=== PATIENT | female | born 1945 | race Caucasian/White ===

== ENCOUNTER → 2016-03-15 | Outpatient (CLI) | payer OTHER, MEDICARE ==
[2016-03-15 12:10] VITALS: BP 191/84; PULSE 84; RESP 16; TEMP 98.1
--- NOTE | 2016-03-15 12:40 | P.PN ---
Subjective This is follow-up visit for this patient with a history of severe and chronic left upper extremity pain and numbness and tingling, started after a work- related injury, and patient had left rotator cuff surgery, and she continued to have severe left shoulder pain and pins and needles in the left upper extremity , she had pain management interventions done long time ago at different pain clinic and according to the patient , she had no benefit from the injection, and is currently on pain medications 1- Neurontin 100 mg twice a day 2- tramadol 50 MG EVERY 4 HOURS 5 PER DAY 3-Lidoderm patch 5% one patch to apply to the left shoulder Patient denies any side effects of the medication, denies excessive drowsiness or sleepiness, denies suicidal ideation, and reports that the current pain medication is NOT helping To control the pain and improve activity of daily living Physical Examinations : 1-Constitutiona : Cooperative , not in acute distress . 2-HEENT : nech ; supple , no Lymphadenopathy , no Thyromegaly , normal thyroid size . eyes : no ptosis , no icterus, no photophobia . ENT : normal of hearing , normal oropharynx , no Thrush . 3- Respiratory : Chest clear to auscultations Bilaterally , no wheezing , no Rhonchi . 4- Cardiovascular : regular rate and rhythem , S1 , S2 , no S3 , no S4. 5- Gastrointestinal : abdomen soft no tenderness , bowel sounds positive all four quadrents , no organomegally . 6- Genitourinary : Defferred . 7- neurologic : Cranial nerve II to XII intact , no focal neurological deffecit . 8-psychatric : alert , oriented X 3 , appropriate affect , intact judgment and insight . 9-Lymphatic : no Lymphadenopathy . 10- musculoskeltal : motor strength normal Right upper extremities 5/5 , and eats 3-4 for the left upper extremity Normal sensation in the right upper extremity and right shoulder area, Positive allodynia in the left upper extremity starting from the upper part of the shoulder, the entire left upper extremity. Normal skin color bolus upper extremities, Assessment and plan = CRPS type I left upper extremity = which is started after work-related injury , patient could benefit from the Neurontin 100 mg twice a day and it should be increased, as tolerated - diagnoses, prognosis, and treatment options including but not limited to physical therapy, surgical interventions, interventional therapies and medication management including narcotics and adjuvant medication were discussed with the patient and all questions answered to the patient's satisfaction. -medication refile =1-Neurontin milligrams twice a day dispense 60 with 1 refill 2- [id number] MG EVERY 4 HOURS DISPENSE 150 WITH 1 REFILL 3- Lidoderm patch 5% apply 1 patch to the left shoulder area 12 hours on, 12 hours off and she will follow up with the pain clinic in 2 months -procedure= discussed with the patient the option of doing the stellate ganglion block, patient declined, she reported that she had injection in the past without any benefit Objective - Vital Signs Vital signs: Vital Signs Temp 98.1 F 03/15/16 12:02 Pulse 84 03/15/16 12:02 Resp 16 03/15/16 12:02 BP 191/84 03/15/16 12:02 Pulse Ox 96 03/15/16 12:02 Intake & Output 03/14/16 03/15/16 03/15/16 18:59 06:59 18:59 Weight 72.575 kg
== END | disposition home or self-care (01) ==
LOC: PNWHC3 11:28
PROVIDERS: ATTEND Specialist
DX: M25.512 Pain in left shoulder (principal); S49.92XA Unspecified injury of left shoulder and upper arm, initial encounter; Y99.9 Unspecified external cause status; Z79.899 Other long term (current) drug therapy
CPT/HCPCS: 99211

== ENCOUNTER → 2016-04-29 | Outpatient (CLI) | payer MEDICARE ==
[2016-04-29 09:44] LABS: CH 30.9; CHCM 34.9; HCT 44.3 % (34.0-46.0); HGB 15.4 gm/dL (11.4-16.0); MCHC 34.8 g/dL (31.0-37.0); MCV 89.2 fL (80.0-100.0); Mean Platelet Volume 7.4; RBC 4.97 m/uL (3.80-5.40); RDW 13.6 % (11.5-15.5); WBC 8.6 k/uL (3.8-10.6)
[2016-04-29 10:04] LABS: ALT 42 U/L (9-52); AST 23 U/L (14-36); Alkaline Phosphatase 84 U/L (38-126); Anion Gap 15 mmol/L; Blood Urea Nitrogen 16 mg/dL (7-17); Calcium 10.2 mg/dL (8.4-10.2); Carbon Dioxide 28 mmol/L (22-30); Chloride 99 mmol/L (98-107); Cholesterol 151 mg/dL (<200); Creatine Kinase 79 U/L (30-135); Glucose 139 mg/dL (74-99); HDL Cholesterol 27 mg/dL (40-60); Non-African American GFR(MDRD) >60 (>60 ml/min/1.73 sqM); Potassium 4.1 mmol/L (3.5-5.1); Sodium 142 mmol/L (137-145); Triglycerides 314 mg/dL (<150)
[2016-04-29 13:54] LABS: Hemoglobin A1C 8.4 % (4.2-6.1)
== END ==
LOC: LABWHC1 09:15
PROVIDERS: ATTEND Family Medicine
DX: E11.9 Type 2 diabetes mellitus without complications (principal); I10 Essential (primary) hypertension; E78.5 Hyperlipidemia, unspecified
CPT/HCPCS: 36415; 80053; 80061; 82550; 83036; 85027

== ENCOUNTER → 2016-05-10 | Outpatient (CLI) | payer MEDICARE, OTHER ==
[2016-05-10 13:30] VITALS: BP 200/94; PULSE 71; RESP 16; TEMP 97.9
--- NOTE | 2016-05-11 19:00 | P.PN ---
Subjective This is follow-up visit for this patient with a history of severe and chronic left upper extremity pain, the] with CRPS type I Left upper extremities, she refuses interventional pain management, because she had injections done on different pain clinic About any benefit, and currently she is on 1- Neurontin 100 mg twice in the (she reported that she stopped taking it because it is not covered by her insurance 2-term 50 mg every 4 hours when necessary. 3-Lidoderm 5% patch apply to the left shoulder Patient denies any side effects of the medication, denies excessive drowsiness or sleepiness, denies suicidal ideation, and reports that the current pain medication is helping To control the pain and improve activity of daily living Physical Examinations : 1-Constitutiona : Cooperative , not in acute distress . 2-HEENT : nech ; supple , no Lymphadenopathy , no Thyromegaly , normal thyroid size . eyes : no ptosis , no icterus, no photophobia . ENT : normal of hearing , normal oropharynx , no Thrush . 3- Respiratory : Chest clear to auscultations Bilaterally , no wheezing , no Rhonchi . 4- Cardiovascular : regular rate and rhythem , S1 , S2 , no S3 , no S4. 5- Gastrointestinal : abdomen soft no tenderness , bowel sounds positive all four quadrents , no organomegally . 6- Genitourinary : Defferred . 7- neurologic : Cranial nerve II to XII intact , no focal neurological deffecit . 8-psychatric : alert , oriented X 3 , appropriate affect , intact judgment and insight . 9-Lymphatic : no Lymphadenopathy . 10- musculoskeltal : exams of the cervical spine = degrees motor strength 3/5 left upper extremity , positive allodynia left upper extremity Normal color and both upper extremities exams of the Lumber spine = motor strength lower extremities ,thigh and legs .5/5 Assessment and plan = CRPS type I left upper extremity, patient was started on Neurontin 100 mg she is not taking it now She reported that is not covered by her insurance/worker compensation. Refille Ultram 50 mg every 4 hours when necessary dispense 150 with 1 refill Refill Lidoderm patch 5% 12 hours on 12 hours off to be applied to the left shoulder space 30 with one refill Objective - Vital Signs Vital signs: Vital Signs Temp 97.9 F 05/10/16 13:16 Pulse 71 05/10/16 13:16 Resp 16 05/10/16 13:16 BP 200/94 05/10/16 13:16 Pulse Ox 95 05/10/16 13:16 Intake & Output 05/10/16 05/11/16 05/11/16 18:59 06:59 18:59 Weight 72.575 kg
== END ==
LOC: PNWHC3 12:09
PROVIDERS: ATTEND Specialist
DX: G90.512 Complex regional pain syndrome I of left upper limb (principal)
CPT/HCPCS: 99211

== ENCOUNTER → 2016-08-02 | Outpatient (CLI) | payer OTHER, MEDICARE ==
[2016-08-02 12:24] VITALS: BP 188/90; PULSE 88; RESP 18; TEMP 99
--- NOTE | 2016-08-03 22:29 | P.PN ---
Subjective This is follow-up visit for this 71 years old female with a chronic history of severe left shoulder and left upper extremity pain, she was diagnosed with complex regional pain syndrome type I and left upper extremity, she refused to have interventional pain management, she had the injections done at different pain clinic without any benefit she is currently on tramadol 50 mg every 4 hours when necessary and Lidoderm patch 5% to be applied to the left shoulder area, she was started also on Neurontin 100 mg twice a day but it was not approved by her insurance, She denies any side effect of the medication she denies any excessive drowsiness or sleepiness and she reported that the current pain medication helping her to control her pain Objective - Vital Signs Vital signs: Vital Signs Temp 99 F 08/02/16 12:18 Pulse 88 08/02/16 12:18 Resp 18 08/02/16 12:18 BP 188/90 08/02/16 12:18 Pulse Ox 96 08/02/16 12:18 - Exam Physical Examinations : 1-Constitutiona : Cooperative , not in acute distress . 2-HEENT : nech ; supple , no Lymphadenopathy , normal thyroid size . eyes : no ptosis , no icterus, no photophobia . ENT : normal of hearing , normal oropharynx , no Thrush . 3- Respiratory : Chest clear to auscultations Bilaterally , no wheezing , no Rhonchi . 4- Cardiovascular : regular rate and rhythem , S1 , S2 , no S3 , no S4. 5- Gastrointestinal : abdomen soft no tenderness , bowel sounds positive all four quadrents , no organomegally . 6- Genitourinary : Defferred . 7- neurologic : Cranial nerve II to XII intact , no focal neurological deffecit . 8-psychatric : alert , oriented X 3 , appropriate affect , intact judgment and insight . 9-Lymphatic : no Lymphadenopathy . 10- musculoskeltal : cervical spine = decreased motor strength in the left upper extremity 3/5 Positive anadenia and hyperalgesia left upper extremity , distal to the elbow Normal color in the upper extremity bilaterally Lumber spine = normal moter stegnth lower extremities ,thigh and legs .5/5 Assessment and Plan Plan: Assessment and plan= complex regional pain syndrome type I left upper extremity Patient currently stable on Lidoderm patch 5%, and Ultram 50 mg every 4 hours when necessary dispense 150 with 2 refills It will be medical necessity to start patient on Neurontin 100 mg twice a day and it should be increased in the future as tolerated She will follow with the pain clinic in 3 months Time with Patient: Less than 30
== END ==
LOC: PNWHC3 12:07
PROVIDERS: ATTEND Specialist
DX: G90.512 Complex regional pain syndrome I of left upper limb (principal)
CPT/HCPCS: 99211

== ENCOUNTER → 2016-10-25 | Outpatient (CLI) | payer MEDICARE, OTHER ==
[2016-10-25 11:47] VITALS: BP 155/80; PULSE 80; RESP 16
--- NOTE | 2016-10-25 12:04 | P.PN ---
Progress Note - Text This is a 71-year-old female with left shoulder pain status post shoulder surgery a few years ago. The patient was diagnosed with CRPS but failed to respond to multiple procedures previously including stellate ganglion blocks. The patient did not use any Neurontin or Lyrica because of insurance issues. Right now the patient uses tramadol 3 times a day and Lidoderm patches. She gets skin rash from the Lidoderm patch from time to time which is not constant problem as she states. For now we'll continue with the same treatment. We will see her 3 months from now for reevaluation. He is alert oriented 3 in no apparent distress she does not show any signs of oversedation,she denies any suicidal ideation.
== END ==
LOC: PNWHC3 11:22
PROVIDERS: ATTEND Anesthesiology
DX: G90.512 Complex regional pain syndrome I of left upper limb (principal)
CPT/HCPCS: 99211

== ENCOUNTER → 2017-01-17 | Outpatient (CLI) | payer OTHER ==
[2017-01-17 11:46] VITALS: BP 187/91; PULSE 86; RESP 18
--- NOTE | 2017-01-17 12:06 | P.PN ---
Progress Note - Text Progress Note Date: 01/17/17 Patient returns for followup for chronic left shoulder pain with radiation to arms with some numbness/tingling. Patient has not had any interventions and she continues on tramadol medications for pain with good relief. Patient denies adverse drug effects from medications. Today, pt denies new-onset weakness, bowel/bladder incontinence, or any other signs or symptoms of cauda equina syndrome. There are no signs of acute intoxication, and no indications of medication diversion or overuse. In addition to above, 13-point review of systems is also negative for chest pain , shortness of breath, changes in vision, changes in hearing, new onset weakness , abdominal pain, diarrhea, extreme fatigue, malaise, fever, skin changes, homicidal or suicidal ideation, or bowel or bladder incontinence. 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 CRPS type I LUE 2. chronic pain syndrome Plan: 1. Explanation: Opioid and psychological risk scores were reviewed. Diagnoses , prognoses, and multiple treatment options including but not limited to physical therapy, interventional therapies, adjuvant medical therapies, narcotic medication therapies, and surgery were discussed with the patient and all questions were answered to the patient's satisfaction. 2. Opioid agreement: Patient has previously signed narcotic agreement, and was orally counseled to not overuse, abuse, divert, or cell medications, and to take them as prescribed by only 1 healthcare provider. The patient was also counseled to store opioid medications in a safe and preferably locked location. Patient was also counseled against driving or operating heavy equipment while using narcotic medications and also to not use alcohol or any illicit or recreational drugs. The patient verbalized understanding that lack of compliance with any of the above and likely result in failure to renew narcotic prescriptions, possible discharge from the clinic, and possible legal ramifications thereafter if indicated. 3. Counseling: The patient was counseled extensively on SMOKING CESSATION, BODY MASS INDEX, EXERCISE. Specifically, the patient was instructed regarding the importance of smoking cessation, weight control, and exercise in the context of both chronic pain and overall health. 4. Procedures: none, patient refuses as procedures have been ineffective for her in the past 5. Consultations: None 6. Investigations: UDS today 7. Medications: tramadol 50 mg #90 with two refills 8. Disposition: f/u as needed. Patient is stable on low-dose opioid and does not want any further interventions performed. The patient is on a safe and stable dose of medication that can be prescribed by a primary care physician and she does not need the specialty care of an interventional pain clinic; she appears reliable and there are no signs of medication misuse/overuse/diversion. If the patient's pain escalates or her needs change in the future, she is more than welcome to return to us if needed. PQRS measures: 1-Patient's medications are documented in the chart. 2-Tobacco use is negative 3-Patient has not had a pneumococcal vaccine. 4-Advanced care planning discussed, patient unable to give. 5-Opioid contract signed with the patient. 6-Pain positive, follow-up visit or procedure scheduled 7-Patient's blood pressure measured and documented, and patient will follow up with the primary care due to hypertension. 8-Patient's weight was measured, and body mass index ABOVE the normal limits, and counseling was done. Patient instructed to follow up with PCP. 9-Patient WAS NOT identified as an unhealthy alcohol user.
== END | disposition home or self-care (01) ==
LOC: PNWHC3 11:29
PROVIDERS: ATTEND Anesthesiology
DX: G90.512 Complex regional pain syndrome I of left upper limb (principal); G89.4 Chronic pain syndrome
CPT/HCPCS: 80307; 80356; 80373; 99211

== ENCOUNTER → 2017-04-11 | Outpatient (CLI) | payer OTHER ==
[2017-04-11 12:15] VITALS: BP 221/91; PULSE 71; RESP 18; TEMP 98.4
--- NOTE | 2017-04-11 12:55 | P.PN ---
Progress Note - Text Progress Note Date: 04/11/17 Patient returns for followup for chronic left shoulder pain with radiation to arms with some numbness/tingling. Patient has not had any interventions and she continues on tramadol medications for pain with good relief. Patient denies adverse drug effects from medications. Patient apparently lost her last tramadol prescription as neither she nor her pharmacy has it and there are no refills demonstrated on [facility] since December. Today, pt denies new-onset weakness, bowel/bladder incontinence, or any other signs or symptoms of cauda equina syndrome. There are no signs of acute intoxication, and no indications of medication diversion or overuse. In addition to above, 13-point review of systems is also negative for chest pain , shortness of breath, changes in vision, changes in hearing, new onset weakness , abdominal pain, diarrhea, extreme fatigue, malaise, fever, skin changes, homicidal or suicidal ideation, or bowel or bladder incontinence. 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 CRPS type I LUE 2. chronic pain syndrome Plan: 1. Explanation: Opioid and psychological risk scores were reviewed. Diagnoses , prognoses, and multiple treatment options including but not limited to physical therapy, interventional therapies, adjuvant medical therapies, narcotic medication therapies, and surgery were discussed with the patient and all questions were answered to the patient's satisfaction. 2. Opioid agreement: Patient has previously signed narcotic agreement, and was orally counseled to not overuse, abuse, divert, or cell medications, and to take them as prescribed by only 1 healthcare provider. The patient was also counseled to store opioid medications in a safe and preferably locked location. Patient was also counseled against driving or operating heavy equipment while using narcotic medications and also to not use alcohol or any illicit or recreational drugs. The patient verbalized understanding that lack of compliance with any of the above and likely result in failure to renew narcotic prescriptions, possible discharge from the clinic, and possible legal ramifications thereafter if indicated. 3. Counseling: The patient was counseled extensively on SMOKING CESSATION, BODY MASS INDEX, EXERCISE. Specifically, the patient was instructed regarding the importance of smoking cessation, weight control, and exercise in the context of both chronic pain and overall health. 4. Procedures: none, patient refuses as procedures have been ineffective for her in the past 5. Consultations: None 6. Investigations: UDS OK from last visit 7. Medications: tramadol 50 mg #90 with two refills 8. Disposition: f/u as needed. Patient is stable on low-dose opioid and does not want any further interventions performed. The patient is on a safe and stable dose of medication that can be prescribed by a primary care physician and she does not need the specialty care of an interventional pain clinic. PQRS measures: 1-Patient's medications are documented in the chart. 2-Tobacco use is negative 3-Patient has not had a pneumococcal vaccine. 4-Advanced care planning discussed, patient unable to give. 5-Opioid contract signed with the patient. 6-Pain positive, follow-up visit or procedure scheduled 7-Patient's blood pressure measured and documented, and patient will follow up with the primary care due to hypertension. 8-Patient's weight was measured, and body mass index ABOVE the normal limits, and counseling was done. Patient instructed to follow up with PCP. 9-Patient WAS NOT identified as an unhealthy alcohol user.
== END | disposition home or self-care (01) ==
LOC: PNWHC3 11:41
PROVIDERS: ATTEND Anesthesiology
DX: G89.4 Chronic pain syndrome (principal); M25.512 Pain in left shoulder; G90.512 Complex regional pain syndrome I of left upper limb; Z79.891 Long term (current) use of opiate analgesic
CPT/HCPCS: 99211

== ENCOUNTER 2017-04-22 15:26 | Emergency (ER) | payer MEDICARE, OTHER ==
[2017-04-22 15:32] VITALS: RESP 18
[2017-04-22] MEDS ORDERED: cloNIDine HCL 0.2 MG TAB PO STA (16:01)
[2017-04-22] MEDS ORDERED: HYDROcodone/APAP 10-325MG 1 EACH TAB PO ONE (16:01)
--- NOTE | 2017-04-22 16:27 | XR ---
EXAMINATION TYPE: XR chest 2V DATE OF EXAM: 04/22/2017 COMPARISON: NONE HISTORY: Pain TECHNIQUE: Frontal and lateral views of the chest are obtained. FINDINGS: There is no heart failure nor confluent pneumonic infiltrate. Thoracic aorta is atheromato us. Heart size is normal. Bony thorax is intact. IMPRESSION: No active cardiopulmonary disease.
--- NOTE | 2017-04-22 16:52 | ED ---
Fall HPI - General Chief Complaint: Fall Stated Complaint: FALL Time Seen by Provider: 04/22/17 15:34 Source: patient, RN notes reviewed, old records reviewed Mode of arrival: EMS - History of Present Illness Initial Comments: Patient is a 72-year-old female presents emergency Department chief complaint of a fall. She reports that she was walking into a store and tripped over a piece of cement in the parking lot. She reports that she fell and landed on her left chest and rib. Patient states that she has a history of severe and chronic left arm pain. She had a rotator cuff repair and has had first and shoulder syndrome since then. She reports that she is very sensitive to touch over the left shoulder and arm. Patient states that she has no elbow pain, denies any bruising to the upper arm. She reports she can make a fist and denies any numbness or tingling to the hand or arm. Patient states that she has had no neck or head injuries. No loss consciousness. She reports that she was able to get up and walk around afterwards. She reports that after she was walking she still continued and some pain on her left ribs. She states it's reproducible to touch. - Related Data Home Medications Medication Instructions Recorded Confirmed Aspirin [Adult Low Dose Aspirin EC] 81 mg PO DAILY 01/19/16 04/22/17 Atorvastatin [Lipitor] 10 mg PO HS 01/19/16 04/22/17 Glimepiride [Amaryl] 2 mg PO DAILY 01/19/16 04/22/17 amLODIPine [Norvasc] 10 mg PO DAILY 01/19/16 04/22/17 metFORMIN HCL [Glucophage] 500 mg PO BID 01/19/16 04/22/17 Benazepril HCl [Lotensin] 20 mg PO DAILY 04/22/17 04/22/17 Hydrochlorothiazide [Hydrodiuril] 25 mg PO DAILY 04/22/17 04/22/17 Lidocaine 5% Patch [Lidoderm 5% 1 patch TOPICAL Q12H 04/22/17 04/22/17 Patch] Previous Rx's Medication Instructions Recorded traMADol HCL [Ultram] 50 mg PO Q8HR PRN #90 tab 04/11/17 Cyclobenzaprine [Flexeril] 10 mg PO TID #12 tab 04/22/17 HYDROcodone/APAP 5-325MG [Schurz 1 tab PO Q6HR PRN #12 tab 04/22/17 5-325] Allergies Allergy/AdvReac Type Severity Reaction Status Date / Time enalaprilat [From Vasotec] Allergy Anaphylaxis Verified 04/22/17 16:22 Review of Systems ROS Statement: Those systems with pertinent positive or pertinent negative responses have been documented in the HPI. ROS Other: All systems not noted in ROS Statement are negative. Past Medical History Past Medical History: Diabetes Mellitus, Hyperlipidemia, Hypertension Additional Past Medical History / Comment(s): HEART MURMUR. History of Any Multi-Drug Resistant Organisms: None Reported Past Surgical History: Appendectomy, Back Surgery, Cholecystectomy, Hysterectomy , Orthopedic Surgery Additional Past Surgical History / Comment(s): "NECK LAMINECTOMY". LEFT BREAST BIOPSY- BENIGN. LEFT SHOULDER. Past Anesthesia/Blood Transfusion Reactions: No Reported Reaction Past Psychological History: Anxiety Smoking Status: Never smoker Past Alcohol Use History: None Reported Past Drug Use History: None Reported - Past Family History Mother Additional Family Medical History / Comment(s): Aneurism Father Family Medical History: Myocardial Infarction ([place]) General Exam - General Exam Comments Initial Comments: This is a 72-year-old female. No distress. Limitations: no limitations General appearance: alert, in no apparent distress Head exam: Present: atraumatic, normocephalic, normal inspection Eye exam: Present: normal appearance, PERRL, EOMI. Absent: scleral icterus, conjunctival injection, periorbital swelling ENT exam: Present: normal exam, mucous membranes moist Neck exam: Present: normal inspection. Absent: tenderness, meningismus, lymphadenopathy Respiratory exam: Present: normal lung sounds bilaterally. Absent: respiratory distress, wheezes, rales, rhonchi, stridor Cardiovascular Exam: Present: regular rate, normal rhythm, normal heart sounds. Absent: systolic murmur, diastolic murmur, rubs, gallop, clicks GI/Abdominal exam: Present: soft, normal bowel sounds. Absent: distended, tenderness, guarding, rebound, rigid Extremities exam: Present: normal inspection, full ROM, normal capillary refill. Absent: tenderness, pedal edema, joint swelling, calf tenderness Back exam: Present: normal inspection Neurological exam: Present: alert, oriented X3, CN II-XII intact Psychiatric exam: Present: normal affect, normal mood Skin exam: Present: warm, dry, intact, normal color. Absent: rash Course Vital Signs 04/22/17 04/22/17 15:28 16:06 Temperature 97.3 F L Pulse Rate 93 Respiratory 18 Rate Blood Pressure 202/93 161/77 O2 Sat by Pulse 97 Oximetry Medical Decision Making - Medical Decision Making 9-year-old feel presenting a chief complaint of left rib pain after a fall. She is tender to palpation over the left breast and paraspinal muscles. No significant bruising noted. She reports the pain is extremely her principal. She states it is not feeling any deeper pain. Patient chest x-ray was reviewed with her and shows no normalities. EKG was reviewed and shows no acute changes. At this time I discussed patient's pain is muscular skeletal patient agrees. I offered to do blood work and patient refused at this time. I offered to do a cardiac workup and she stated that she fell and is only muscle skeletal does not want to have any further testing. I discussed case with her Sayed. I'll discharge patient went to plantar medication is clinically to see muscle skeletal in nature. Patient agrees to treatment plan will comply. Return parameters were discussed. 04/22/17 17:00 EKG shows normal sinus rhythm, nonspecific ST-T wave male who. Ventricular rate of 79 bpm. TN interval 134 ms. QRS ration 82 ms. QT QTC 372/426 most seconds. No evidence of ST elevation or T-wave inversion. - Radiology Data Radiology results: report reviewed Chest x-ray was reviewed and negative for any acute process. Disposition Clinical Impression: Fall Disposition: HOME SELF-CARE Condition: Good Instructions: Rib Contusion (ED) Additional Instructions: Patient has a follow-up with primary care provider. Return to emergency department if any alarming signs or symptoms occur. Prescriptions: Cyclobenzaprine [Flexeril] 10 mg PO TID #12 tab HYDROcodone/APAP 5-325MG [Schurz 5-325] 1 tab PO Q6HR PRN #12 tab PRN Reason: Pain Referrals: Elenita Ireland MD [Primary Care Provider] - 1-2 days Time of Disposition: 17:15
[2017-04-22 17:25] VITALS: PULSE 75; TEMP 98.2
[2017-04-22 17:53] VITALS: BP 180/83
== END 2017-04-22 17:52 | disposition home or self-care (01) ==
LOC: EC 15:26
DX: R07.81 Pleurodynia (principal); G89.29 Other chronic pain; M25.512 Pain in left shoulder; E78.5 Hyperlipidemia, unspecified; I10 Essential (primary) hypertension; E11.9 Type 2 diabetes mellitus without complications; Z79.82 Long term (current) use of aspirin; Z79.84 Long term (current) use of oral hypoglycemic drugs; Z79.899 Other long term (current) drug therapy; Z88.8 Allergy status to other drugs, medicaments and biological substances; Z98.890 Other specified postprocedural states; Z82.49 Family history of ischemic heart disease and other diseases of the circulatory system; W18.09XA Striking against other object with subsequent fall, initial encounter; Y93.01 Activity, walking, marching and hiking; Y92.481 Parking lot as the place of occurrence of the external cause
CPT/HCPCS: 71046; 93005; 99284

== ENCOUNTER → 2018-07-31 | Outpatient (CLI) | payer MEDICARE, OTHER ==
[2018-07-31 08:47] LABS: HCT 42.8 % (34.0-46.0); HGB 14.1 gm/dL (11.4-16.0); MCH 29.5 pg (25.0-35.0); MCHC 32.9 g/dL (31.0-37.0); MCV 89.4 fL (80.0-100.0); Mean Platelet Volume 6.8; Platelet Count 204 k/uL (150-450); RBC 4.79 m/uL (3.80-5.40); RDW 13.5 % (11.5-15.5); WBC 8.7 k/uL (3.8-10.6)
[2018-07-31 08:58] LABS: ALT 54 U/L (9-52); AST 26 U/L (14-36); African American GFR (CKD) >90 (>60 ml/min/1.73 sqM); Albumin 4.5 g/dL (3.5-5.0); Alkaline Phosphatase 115 U/L (38-126); Anion Gap 8 mmol/L; Blood Urea Nitrogen 20 mg/dL (7-17); Calcium 9.9 mg/dL (8.4-10.2); Carbon Dioxide 28 mmol/L (22-30); Chloride 105 mmol/L (98-107); Cholesterol 140 mg/dL (<200); Creatine Kinase 93 U/L (30-135); Glucose 203 mg/dL (74-99); HDL Cholesterol 27 mg/dL (40-60); LDL Cholesterol,Calculated 62 mg/dL (0-99); Magnesium 1.9 mg/dL (1.6-2.3); Potassium 4.6 mmol/L (3.5-5.1); Sodium 141 mmol/L (137-145); Total Bilirubin 0.7 mg/dL (0.2-1.3); Total Protein 7.6 g/dL (6.3-8.2); Triglycerides 255 mg/dL (<150)
[2018-07-31 09:07] LABS: Appearance,Urine Clear (Clear); Bilirubin,Urine Negative (Negative); Blood,Urine Negative (Negative); Color,Urine Light Yellow; Glucose,Urine (UA) 2+ (Negative); Ketones,Urine Negative (Negative); Leukocyte Esterase,Urine Negative (Negative); Nitrite,Urine Negative (Negative); Protein,Urine Negative (Negative); Specific Gravity,Urine 1.017 (1.001-1.035); Urobilinogen,Urine <2.0 mg/dL (<2.0)
[2018-07-31 16:08] LABS: Vitamin D 25 Hydroxy 25.1 ng/mL (30.0-100.0)
[2018-07-31 16:09] LABS: Folate, Serum 23.8 ng/mL
== END | disposition home or self-care (01) ==
LOC: RADUSWWP 07:59
PROVIDERS: ATTEND Family Medicine
DX: I73.9 Peripheral vascular disease, unspecified (principal); E78.5 Hyperlipidemia, unspecified; I10 Essential (primary) hypertension; Z79.899 Other long term (current) drug therapy
CPT/HCPCS: 80053; 80061; 81003; 82085; 82306; 82550; 82607; 82746; 83735; 84443; 85027; 93923

== ENCOUNTER 2020-05-05 18:33 | Emergency (ER) | payer MEDICARE, OTHER ==
[2020-05-05 18:43] VITALS: BP 149/68; PULSE 90; TEMP 98
--- NOTE | 2020-05-05 19:14 | ED ---
General Adult HPI - General Chief complaint: Upper Respiratory Infection Stated complaint: coughing up blood Time Seen by Provider: 05/05/20 19:06 Source: patient, RN notes reviewed Mode of arrival: ambulatory Limitations: no limitations - History of Present Illness Initial comments: Patient is a 75-year-old female presents to emergency department complaining of cough times one day. She noted that during coughing fits she had very minimal bright red blood streaking and some phlegm. She denies sore throat or any history of lung disease. She was in no apparent distress or pain while sitting up in bed during exam and interview. She noted that he was 20 mEq which she wanted to come in to make sure everything was okay. She denied any chest pain shortness of breath headache nausea vomiting diarrhea constipation fever fatigue chills - Related Data Home Medications Medication Instructions Recorded Confirmed Aspirin [Adult Low Dose Aspirin EC] 81 mg PO DAILY 01/19/16 04/22/17 Atorvastatin [Lipitor] 10 mg PO HS 01/19/16 04/22/17 Glimepiride [Amaryl] 2 mg PO DAILY 01/19/16 04/22/17 amLODIPine [Norvasc] 10 mg PO DAILY 01/19/16 04/22/17 metFORMIN HCL [Glucophage] 500 mg PO BID 01/19/16 04/22/17 Benazepril HCl [Lotensin] 20 mg PO DAILY 04/22/17 04/22/17 Lidocaine 5% Patch [Lidoderm 5% 1 patch TOPICAL Q12H 04/22/17 04/22/17 Patch] hydroCHLOROthiazide [Hydrodiuril] 25 mg PO DAILY 04/22/17 04/22/17 Previous Rx's Medication Instructions Recorded traMADol HCL [Ultram] 50 mg PO Q8HR PRN #90 tab 04/11/17 Cyclobenzaprine [Flexeril] 10 mg PO TID #12 tab 04/22/17 HYDROcodone/APAP 5-325MG [Fisher 1 tab PO Q6HR PRN #12 tab 04/22/17 5-325] Allergies Allergy/AdvReac Type Severity Reaction Status Date / Time enalaprilat [From Vasotec] Allergy Anaphylaxis Verified 05/05/20 18:43 Review of Systems ROS Statement: Those systems with pertinent positive or pertinent negative responses have been documented in the HPI. ROS Other: All systems not noted in ROS Statement are negative. Past Medical History Past Medical History: Diabetes Mellitus, Hyperlipidemia, Hypertension Additional Past Medical History / Comment(s): HEART MURMUR. History of Any Multi-Drug Resistant Organisms: None Reported Past Surgical History: Appendectomy, Back Surgery, Cholecystectomy, Hysterectomy, Orthopedic Surgery Additional Past Surgical History / Comment(s): "NECK LAMINECTOMY". LEFT BREAST BIOPSY- BENIGN. LEFT SHOULDER. Past Anesthesia/Blood Transfusion Reactions: No Reported Reaction Past Psychological History: Anxiety Smoking Status: Never smoker Past Alcohol Use History: None Reported Past Drug Use History: None Reported - Past Family History Mother Additional Family Medical History / Comment(s): Aneurism Father Family Medical History: Myocardial Infarction ([place]) General Exam Limitations: no limitations General appearance: alert, in no apparent distress, obese Head exam: Present: atraumatic, normocephalic, normal inspection Eye exam: Present: normal appearance, PERRL, EOMI. Absent: scleral icterus, conjunctival injection, periorbital swelling ENT exam: Present: normal exam, mucous membranes moist Neck exam: Present: normal inspection. Absent: tenderness, meningismus, lymphadenopathy Respiratory exam: Present: normal lung sounds bilaterally. Absent: respiratory distress, wheezes, rales, rhonchi, stridor Cardiovascular Exam: Present: regular rate, normal rhythm, normal heart sounds. Absent: systolic murmur, diastolic murmur, rubs, gallop, clicks GI/Abdominal exam: Present: soft, normal bowel sounds. Absent: distended, tenderness, guarding, rebound, rigid Extremities exam: Present: normal inspection, full ROM, normal capillary refill. Absent: tenderness, pedal edema, joint swelling, calf tenderness Neurological exam: Present: alert, oriented X3, CN II-XII intact Psychiatric exam: Present: normal affect, normal mood Skin exam: Present: warm, dry, intact, normal color. Absent: rash Course Vital Signs 05/05/20 05/05/20 18:38 20:18 Temperature 98.0 F Pulse Rate 90 Respiratory 18 20 Rate Blood Pressure 149/68 O2 Sat by Pulse 98 Oximetry Medical Decision Making - Medical Decision Making 75-year-old female complaining of cough with minimal hemoptysis. Chest x-ray, Covid test ordered. Covid negative, case discussed with Dr. Alba told patient to discharge home with conservative management. - Lab Data Lab Results 05/05/20 Range/Units 19:07 Coronavirus (PCR) Not Detected (Not Detectd) - Radiology Data Radiology results: report reviewed, image reviewed Chest x-ray No active cardiopulmonary disease. No change Disposition Clinical Impression: Cough, Hemoptysis Disposition: HOME SELF-CARE Condition: Stable Instructions (If sedation given, give patient instructions): Upper Respiratory Infection (ED) Additional Instructions: Please return to the Emergency Department if symptoms worsen or any other concerns. Minimal blood streaking informed can be normal due to irritation throat during coughing fits. Conservative management with cough syrup, cough drops. Follow-up with primary care in 2-4 days. Is patient prescribed a controlled substance at d/c from ED?: No Referrals: Elenita Ireland MD [Primary Care Provider] - 1-2 days Time of Disposition: 21:09
--- NOTE | 2020-05-05 19:33 | XR ---
EXAMINATION TYPE: XR chest 1V portable DATE OF EXAM: 05/05/2020 COMPARISON: 04/22/2017 HISTORY: Chest pain TECHNIQUE: FINDINGS: Heart and mediastinum are within normal limits. Lungs are clear of infiltrate. There is no pleural effusion. Bony thorax appears intact. IMPRESSION: No active cardiopulmonary disease. No change.
[2020-05-05 20:21] VITALS: RESP 20
== END 2020-05-05 21:58 | disposition home or self-care (01) ==
LOC: EC 18:33
DX: R04.2 Hemoptysis (principal); E11.9 Type 2 diabetes mellitus without complications; E78.5 Hyperlipidemia, unspecified; I10 Essential (primary) hypertension; Z79.82 Long term (current) use of aspirin; Z79.84 Long term (current) use of oral hypoglycemic drugs; Z82.49 Family history of ischemic heart disease and other diseases of the circulatory system
CPT/HCPCS: 71045; 87635

== ENCOUNTER → 2020-05-11 | Outpatient (CLI) | payer MEDICARE, OTHER ==
--- NOTE | 2020-05-12 11:00 | ECHOF ---
Referral Reason:R01.1 cardiac murmur MEASUREMENTS -------- HEIGHT: 154.9 cm WEIGHT: 73.9 kg BP: RVIDd: 2.7 cm (< 3.3) IVSd: 1.1 cm (0.6 - 1.1) LVIDd: 4.0 cm (3.9 - 5.3) LVPWd: 1.1 cm (0.6 - 1.1) IVSs: 1.6 cm LVIDs: 2.6 cm LVPWs: 1.4 cm LA Diam: 3.7 cm (2.7 - 3.8) LAESV Index (A-L): 37.84 ml/m Ao Diam: 2.5 cm (2.0 - 3.7) AV Cusp: 1.1 cm (1.5 - 2.6) MV EXCURSION: 12.108 mm (> 18.000) MV EF SLOPE: 73 mm/s (70 - 150) EPSS: 0.5 cm MV E Artis: 0.81 m/s MV DecT: 278 ms MV A Artis: 0.95 m/s MV E/A Ratio: 0.85 AV maxP.39 mmHg AV meanP.58 mmHg RAP: 5.00 mmHg RVSP: 24.29 mmHg FINDINGS -------- Sinus rhythm. This was a technically adequate study. The left ventricular size is normal. There is borderline concentric left ventricular hypertrophy. Overall left ventricular systolic function is normal with, an EF between 60 - 65 %. The right ventricle is normal in size. LA is moderately dilated 34-39 ml/m2 The right atrium is normal in size. Interatrial and interventricular septum intact. There is mild aortic valve sclerosis. There is mild aortic stenosis present. Peak/mean gradient a cross the Aortic Valve is 35.39mmHg / 17.58mmHg. The mitral valve leaflets are mildly thickened. Mild mitral annular calcification present. There is trace to mild mitral regurgitation. Mild tricuspid regurgitation present. Right ventricular systolic pressure is normal at < 35 mmHg. Trace/mild (physiologic) pulmonic regurgitation. The aortic root size is normal. Normal inferior vena cava with normal inspiratory collapse consistent with estimated right atrial pre ssure of 5 mmHg. There is no pericardial effusion. CONCLUSIONS -------- 1. The left ventricular size is normal. 2. There is borderline concentric left ventricular hypertrophy. 3. Overall left ventricular systolic function is normal with, an EF between 60 - 65 %. 4. LA is moderately dilated 34-39 ml/m2 5. There is mild aortic valve sclerosis. 6. There is mild aortic stenosis present. 7. Peak/mean gradient across the Aortic Valve is 35.39mmHg / 17.58mmHg. 8. The mitral valve leaflets are mildly thickened. 9. Mild mitral annular calcification present. 10. There is trace to mild mitral regurgitation. 11. Mild tricuspid regurgitation present. 12. Trace/mild (physiologic) pulmonic regurgitation. 13. There is no pericardial effusion. DISPATCH COORDINATOR: MAXIMILIAN Richard
== END ==
LOC: RADECHMAIN 13:49
PROVIDERS: ATTEND Family Medicine
DX: I08.1 Rheumatic disorders of both mitral and tricuspid valves (principal)
CPT/HCPCS: 93306

== ENCOUNTER → 2020-06-07 | Outpatient (CLI) | payer MEDICARE, OTHER ==
--- NOTE | 2020-06-07 11:49 | US ---
EXAMINATION TYPE: US carotid duplex BILAT DATE OF EXAM: 06/07/2020 COMPARISON: 12/28/2015 CLINICAL HISTORY: 75-year-old female R09.89 carotid bruit, diabetic EXAM MEASUREMENTS: RIGHT: Peak Systolic Velocity (PSV) cm/sec ----- Right CCA: 82.2 ----- Right ICA: 117.4 ----- Right ECA: 175.0 MID ICA/CCA ratio: 1.4 RIGHT: End Diastole cm/sec ----- Right CCA: 20.5 ----- Right ICA: 27.0 ----- Right ECA: 23.6 LEFT: Peak Systolic Velocity (PSV) cm/sec ----- Left CCA: 76.6 ----- Left ICA: 107.8 ----- Left ECA: 247.2 MID ICA/CCA ratio: 1.4 LEFT: End Diastole cm/sec ----- Left CCA: 24.2 ----- Left ICA: 30.4 ----- Left ECA: 34.7 VERTEBRALS (direction of flow): Right Vertebral: Antegrade Left Vertebral: Antegrade Rhythm: Normal [employer] notes: Moderate irregular plaque is noted at bilateral carotid bifurcation with abnormall y elevated PSV in both ECA. Incidental findings: bilateral thyroid nodules are noted in a very heterogeneous thyroid gland. IMPRESSION: 1. Moderate atherosclerotic change at both bifurcations. No hemodynamically significant ICA stenosis on either side. 2. Elevated velocities within the ECA on both sides suggesting probably severe stenosis on the left a nd moderate on the right. 3. Incidental very heterogeneous thyroid gland with a numerous nodules, possible multinodular goiter. Dedicated thyroid ultrasound can further evaluate. Criteria for Assigning % of Stenosis / Diameter reduction (Estimation based on the indirect measurements of the internal carotid artery velocities (ICA PSV). 1. Normal (no stenosis)=ICA PSV < 125 cm/s: ratio < 2.0: ICA EDV<40 cm/s. 2. Less than 50% stenosis=ICA PSV < 125 cm/s: ratio < 2.0: ICA EDV<40 cm/s. 3. 50 to 69% stenosis=ICA PSV of 125 to 230 cm/s: ration 2.0 ? 4.0: ICA EDV 40-100 cm/s. 4. Greater than 70% stenosis to near occlusion= ICA PSV > 230 cm/s: ratio > 4.0: ICA EDV > 100 cm/s. 5. Near occlusion= ICA PSV velocities may be low or undetectable: variable ratio and ICA EDV. 6. Total occlusion=unable to detect flow.
== END | disposition home or self-care (01) ==
LOC: RADUSWWP 10:21
PROVIDERS: ATTEND Family Medicine
DX: I65.23 Occlusion and stenosis of bilateral carotid arteries (principal)
CPT/HCPCS: 93880

== ENCOUNTER → 2020-06-16 | Outpatient (CLI) | payer MEDICARE, OTHER ==
--- NOTE | 2020-06-17 07:23 | US ---
EXAMINATION TYPE: US thyroid st tissue head/neck DATE OF EXAM: 06/16/2020 COMPARISON: NONE CLINICAL HISTORY: E04.1 Thyroid Nodule. thyroid nodules GLAND SIZE: Right Lobe: 5.7 x 1.7 x 1.5 cm Overall Parenchyma: heterogenous Left Lobe: 4.9 x 1.8 x 1.8 cm Overall Parenchyma: heterogeneous Isthmus Thickness: 0.3 cm NODULES RIGHT: # of nodules measured on right: 2 1. 1.3 X 0.8 x 1.1 cm, upper , mixed, hypoechoic nodule, which is wider than tall, with ill-defined margins, without echogenic foci. Prior size: no prior 2. 0.8 X 0.6 x 0.8 cm, lower , mixed, hypoechoic nodule, which is wider than tall, with smooth alcira ins, without echogenic foci. Prior size: no prior LEFT: # of nodules measured on left: 2 1. 2.1 X 0.9 x 1.6 cm, mid , mixed, isoechoic nodule, which is wider than tall, with ill-defined ma rgins, without echogenic foci. Prior size: no prior 2. 1.1 X 0.4 x 0.8 cm, mid, solid, hypoechoic nodule, which is wider than tall, with smooth margin s, without echogenic foci. Prior size: no prior ISTHMUS: # of nodules measured in the isthmus: 1 1. 2.3 X 1.2 x 2.0 cm right, mixed, isoechoic nodule, which is wider than tall, with smooth margins , without echogenic foci. Prior size: no prior Bilateral neck scanned, no evidence of lymphadenopathy. *heterogeneous thyroid gland with multiple nodules bilaterally IMPRESSION: Multinodular thyroid with findings suggestive of thyroiditis. 2017 ACR TI-RADS LEVEL: TR-RADS 3 - Mildly Suspicious: Follow if > 1.5 cm, FNA if > 2.5 cm *Highest TI-RADS level nodule reported
== END | disposition home or self-care (01) ==
LOC: RADUSWWP 15:19
PROVIDERS: ATTEND Family Medicine
DX: E04.2 Nontoxic multinodular goiter (principal)
CPT/HCPCS: 76536

== ENCOUNTER → 2020-08-18 | Outpatient (CLI) | payer MEDICARE, OTHER ==
--- NOTE | 2020-08-20 14:52 | MM ---
Reason for exam: screening (asymptomatic). Last mammogram was performed 9 years and 8 months ago. History: Patient is postmenopausal. Family history of breast cancer in sister at age 73. Benign excisional biopsy of the left breast, 2010. Physical Findings: A clinical breast exam by your physician is recommended on an annual basis and results should be correlated with mammographic findings. MG 3D Screening Mammo W/Cad Bilateral CC and MLO view(s) were taken. No prior studies available for comparison. There are scattered fibroglandular densities. There is no discrete abnormality. Scattered benign round and vascular calcifications. Benign intramammary node lateral left CC view. ASSESSMENT: Negative, BI-RAD 1 RECOMMENDATION: Routine screening mammogram of both breasts in 1 year.
== END | disposition home or self-care (01) ==
LOC: RADMAMWWP 14:07
PROVIDERS: ATTEND Family Medicine
DX: Z12.31 Encounter for screening mammogram for malignant neoplasm of breast (principal)
CPT/HCPCS: 77063; 77067

== ENCOUNTER → 2021-01-20 | Outpatient (CLI) | payer MEDICARE, OTHER ==
--- NOTE | 2021-01-20 13:02 | MR ---
EXAMINATION TYPE: MR lumbar spine wo con DATE OF EXAM: 01/20/2021 12:15 PM COMPARISON: NONE HISTORY: Diabetic neuropathy, burning in legs after walking Multiplanar, MultiSpin echo imaging of the lumbar spine was performed. L1-L2: Normal disc appearance without desiccation. No herniation, protrusion or disc bulging. No ca nal stenosis is present. Foramina are patent bilaterally. L2-L3: Normal disc appearance without desiccation. No herniation, protrusion or disc bulging. No ca nal stenosis is present. Foramina are patent bilaterally. L3-L4: Mild decreased signal and loss of height with posterior disc bulge. Mild effacement ventral th ecal sac. No evidence for disc herniation or central stenosis. Mild bilateral foraminal encroachment. L4-L5: Mild decreased signal and loss of height with posterior disc bulge. Mild effacement ventral th ecal sac. No evidence for disc herniation or central stenosis. Mild bilateral foraminal encroachment. L5-S1: Mild decreased signal and loss of height with posterior disc bulge. Mild effacement ventral th ecal sac. No evidence for disc herniation or central stenosis. Mild bilateral foraminal encroachment. Lumbar segments are intact. No paraspinal masses are identified. Conus medullaris has a normal appe arance. IMPRESSION: 1. Degenerative disc disease with disc bulging as noted. No evidence for herniation or central stenos is.
== END | disposition home or self-care (01) ==
LOC: RADMRIMAIN 11:30
PROVIDERS: ATTEND Psychiatry & Neurology Neurology
DX: M51.36 Other intervertebral disc degeneration, lumbar region (principal); E11.42 Type 2 diabetes mellitus with diabetic polyneuropathy; R29.898 Other symptoms and signs involving the musculoskeletal system; M79.604 Pain in right leg; M48.061 Spinal stenosis, lumbar region without neurogenic claudication
CPT/HCPCS: 72148

== ENCOUNTER → 2021-04-05 | Outpatient (CLI) | payer MEDICARE, OTHER ==
[2021-04-05 15:07] LABS: Basophils # (A) 0.07 X 10*3/uL (0.00-0.10); Basophils % (A) 0.8 %; Eosinophils # (A) 0.33 X 10*3/uL (0.04-0.35); Eosinophils % (A) 3.7 %; HCT 40.4 % (37.2-46.3); HGB 12.7 g/dL (12.0-15.0); Immature Grans, Automated 1.4 %; Lymphocytes # (A) 1.35 X 10*3/uL (0.90-5.00); Lymphocytes % (A) 15.1 %; MCH 29.1 pg (27.0-32.0); MCHC 31.4 g/dL (32.0-37.0); MCV 92.4 fL (80.0-97.0); Mean Platelet Volume 10.8 fL (9.5-12.2); Monocytes # (A) 0.44 X 10*3/uL (0.20-1.00); Monocytes % (A) 4.9 %; NRBC Per 100 WBC 0 /100 WBCS (0.0-0.0); Neutrophils # (A) 6.65 X 10*3/uL (1.80-7.70); Neutrophils % (A) 74.1 %; Platelet Count 216 X 10*3/uL (140-440); RBC 4.37 X 10*6/uL (4.10-5.20); RDW 13.4 % (11.5-14.5); WBC 8.97 X 10*3/uL (4.50-10.00)
[2021-04-05 15:48] LABS: ALT 34 U/L (8-44); AST 22 U/L (13-35); African American GFR (CKD) 60.6 (60.0-200.0); Albumin 4.6 g/dL (3.8-4.9); Albumin/Globulin Ratio 1.38 (1.60-3.17); Alkaline Phosphatase 97 U/L (41-126); Blood Urea Nitrogen 25.3 mg/dL (9.0-27.0); Calcium 10.1 mg/dL (8.7-10.3); Carbon Dioxide 22.4 mmol/L (20.0-27.5); Chloride 105 mmol/L (96-109); Chol/HDL Ratio 4.85 Ratio; Creatine Kinase 43 U/L (26-186); Globulin 3.3 g/dL (1.6-3.3); Glucose 112 mg/dL (70-110); LDL Cholesterol,Calculated 58.8 mg/dL (0.0-131.0); Non-African American GFR(CKD) 52.3 (60.0-200.0); Potassium 4.3 mmol/L (3.5-5.5); Sodium 141 mmol/L (135-145); Total Protein 7.9 g/dL (6.2-8.2); Uric Acid 8.2 mg/dL (2.9-7.7)
[2021-04-05 19:12] LABS: Urine Creatinine 74.1 mg/dL (28.0-217.0)
== END | disposition home or self-care (01) ==
LOC: LABWHC1 10:01
PROVIDERS: ATTEND Family Medicine
DX: E11.40 Type 2 diabetes mellitus with diabetic neuropathy, unspecified (principal); E78.2 Mixed hyperlipidemia; N18.9 Chronic kidney disease, unspecified; E79.0 Hyperuricemia without signs of inflammatory arthritis and tophaceous disease
CPT/HCPCS: 36415; 80053; 80061; 82043; 82306; 82550; 82570; 82607; 83036; 83970; 84439; 84443; 84550; 85025

== ENCOUNTER → 2021-04-22 | Outpatient (CLI) | payer MEDICARE, OTHER ==
--- NOTE | 2021-04-26 09:57 | PE ---
Nuclear medicine PET/CT HISTORY: Right Kidney cancer, C 64.1, initial Patient received 9.1 mCi F-18 FDG intravenously and delayed scanning was performed from the skull bas e to the mid thighs. Localization and attenuation correction CT scan was performed. Correlation to prior chest CT dated 04/06/2021, CT 03/17/2021 Average mediastinal uptake SUV 1.7, average liver uptake SUV 2.1 Chest and neck: There is no cervical or supraclavicular adenopathy. There is no mediastinal, axillary , or hilar adenopathy. Coronary artery calcifications are present. No pleural or pericardial effusion . The previously identified lung nodules in the right lung are again seen. No suspicious uptake. ABDOMEN: There is no retroperitoneal adenopathy. No evident liver mass. Low dense focus seen within t he spleen on prior exam shows no associated uptake. The mass associated with the posterior right kidn ey does not show appreciable associated uptake. There is no ascites. Bowel uptake is likely physiolog ic but indeterminate. Uterus is absent. Ovaries show no abnormal uptake. No pelvic adenopathy. Osseous structures show degenerative disc change and facet arthropathy, no suspicious uptake. IMPRESSION: Metastatic disease is not evident.
== END | disposition home or self-care (01) ==
LOC: RADPETMAIN 11:40
PROVIDERS: ATTEND Internal Medicine Hematology & Oncology
DX: C64.1 Malignant neoplasm of right kidney, except renal pelvis (principal)
CPT/HCPCS: 78815; A9552

== ENCOUNTER 2021-05-04 15:15 | Inpatient (IN) | payer MEDICARE, OTHER ==
[~2021-05-04 15:15] MED LIST: IV FLUID CONTINUATION 500 ML IV ONE; LIDOCAINE 1% INJ 10MG/ML (20 ML MDV) SQ ONE; MIDAZOLAM HCL 10 MG/10 ML VIAL IVP ONE; VERAPAMIL SYRINGE (5 MG/10 ML) INTRAARTER ONE
--- NOTE | 2021-05-04 15:51 | ED ---
General Adult HPI - General Chief complaint: Chest Pain Stated complaint: chest pain Time Seen by Provider: 05/04/21 15:38 Source: patient Mode of arrival: wheelchair Limitations: no limitations - History of Present Illness Initial comments: Dictation was produced using [employer] dictation software. please excuse any grammatical, word or spelling errors. Chief Complaint: Patient is a 76-year-old female she has past medical history of kidney cancer, dyslipidemia diabetes and hypertension. She is today for chest pain History of Present Illness: Shows 76-year-old female starting at 1:00 PM she began having chest pain. She describes it as a pressure. She states that it radiates to her back. Worse with deep inspiration. Is not radiating. She does feel associated nausea. Patient has a history of coronary artery disease or hea rt attacks. Patient states she thinks that this may be her anxiety because she has kidney surgery soon in the near future. Patient denies any coughing. She does state that it's worse when he pressed on her chest The ROS documented in this emergency department record has been reviewed and confirmed by me. Those systems with pertinent positive or negative responses have been documented in the HPI. All other systems are other negative and/or noncontributory. PHYSICAL EXAM: General Impression: Alert and oriented x3, not in acute distress HEENT: Normocephalic atraumatic, extra-ocular movements intact, pupils equal and reactive to light bilaterally, mucous membranes moist. Cardiovascular: Heart regular rate and rhythm Chest: Able to complete full sentences, no retractions, no tachypnea Abdomen: abdomen soft, non-tender, non-distended, no organomegaly Musculoskeletal: Pulses present and equal in all extremities, no peripheral edema Motor: no focal deficits noted Neurological: CN II-XII grossly intact, no focal motor or sensory deficits noted Skin: Intact with no visualized rashes Psych: Normal affect and mood ED course: 76-year-old female presents emergency department for chest pain. Her symptoms are atypical with typical features. Has multiple risk factors. Vital signs upon arrival are within acceptable limits. She EKG showed depressions in the inferior leads. Patient states that her pain is a 9 out of 10. Her symptoms are concerning for acute coronary syndrome. R epeat EKG performed showing persistent ST depressions with no clear ST elevations. Patient reevaluated at 4:50 PM still symptomatic. Unstable angina.. Spoke with Dr. Maciel at approximately 4:55 PM. Requested that patient be placed on nitro infusion. He states he will call back with the fax number so that he can review the EKGs. Laboratory evaluation obtained. CBC, coag panel, metabolic panel was obtained. Troponin 0.398. Spoke again with Dr. Maciel who will take patient to the cardiac clinical lab specialist for urgent cardiac catheterization. Patient be admitted to Dr. Cheng who is wi lling to accept patients care - Related Data Home Medications Medication Instructions Recorded Confirmed Atorvastatin Calcium [Lipitor] 40 mg PO HS 05/04/21 05/04/21 Cholecalciferol [Vitamin D3 (25 50 mcg PO DAILY 05/04/21 05/04/21 Mcg = 1000 Iu)] Glimepiride [Amaryl] 4 mg PO DAILY 05/04/21 05/04/21 Triamterene-Hctz 37.5-25Mg 1 cap PO W/BRKFST 05/04/21 05/04/21 [Dyazide 37.5-25 Capsule] amLODIPine BESYLATE/BENAZEPRIL 1 cap PO DAILY 05/04/21 05/04/21 [amLODIPine BESYLATE/BENAZEPRIL 10-40 mg] metFORMIN HCL [Glucophage] 1,000 mg PO BID 05/04/21 05/04/21 Allergies Allergy/AdvReac Type Severity Reaction Status Date / Time enalaprilat [From Vasotec] Allergy Anaphylaxis Verified 05/04/21 16:21 Review of Systems ROS Statement: Those systems with pertinent positive or pertinent negative responses have been documented in the HPI. ROS Other: All systems not noted in ROS Statement are negative. Past Medical History Past Medical History: Diabetes Mellitus, Hyperlipidemia, Hypertension Additional Past Medical History / Comment(s): HEART MURMUR. History of Any Multi-Drug Resistant Organisms: None Reported Past Surgical History: Appendectomy, Back Surgery, Cholecystectomy, Hysterectomy, Orthopedic Surgery Additional Past Surgical History / Comment(s): "NECK LAMINECTOMY". LEFT BREAST BIOPSY- BENIGN. LEFT SHOULDER. Past Anesthesia/Blood Transfusion Reactions: No Reported Reaction Past Psychological History: Anxiety Smoking Status: Never smoker Past Alcohol Use History: None Reported Past Drug Use History: None Reported - Past Family History Mother Additional Family Medical History / Comment(s): Aneurism Father Family Medical History: Myocardial Infarction ([place]) General Exam Limitations: no limitations Course Vital Signs 05/04/21 05/04/21 05/04/21 15:34 16:28 16:55 Temperature 97.9 F Pulse Rate 93 91 95 Respiratory 18 20 20 Rate Blood Pressure 151/67 152/76 152/66 O2 Sat by Pulse 97 94 L 96 Oximetry 05/04/21 17:20 Temperature Pulse Rate 92 Respiratory 20 Rate Blood Pressure 156/77 O2 Sat by Pulse 96 Oximetry Medical Decision Making - Lab Data Result diagrams: 05/04/21 15:59 05/04/21 15:59 Lab Results 05/04/21 05/04/21 05/04/21 Range/Units 15:59 15:59 15:59 WBC 8.5 (3.8-10.6) k/uL RBC 4.29 (3.80-5.40) m/uL Hgb 13.0 (11.4-16.0) gm/dL Hct 39.1 (34.0-46.0) % MCV 91.1 (80.0-100.0) fL MCH 30.2 (25.0-35.0) pg MCHC 33.1 (31.0-37.0) g/dL RDW 14.7 (11.5-15.5) % Plt Count 208 (150-450) k/uL MPV 7.4 Neutrophils % 78 % Lymphocytes % 14 % Monocytes % 3 % Eosinophils % 4 % Basophils % 0 % Neutrophils # 6.6 (1.3-7.7) k/uL Lymphocytes # 1.2 (1.0-4.8) k/uL Monocytes # 0.3 (0-1.0) k/uL Eosinophils # 0.3 (0-0.7) k/uL Basophils # 0.0 (0-0.2) k/uL PT 11.0 (9.0-12.0) sec INR 1.0 (<1.2) APTT 23.9 (22.0-30.0) sec Sodium 138 (137-145) mmol/L Potassium 4.7 (3.5-5.1) mmol/L Chloride 104 (98-107) mmol/L Carbon Dioxide 21 L (22-30) mmol/L Anion Gap 13 mmol/L BUN 27 H (7-17) mg/dL Creatinine 1.05 H (0.52-1.04) mg/dL Est GFR (CKD-EPI)AfAm 60 (>60 ml/min/1.73 sqM) Est GFR (CKD-EPI)NonAf 52 (>60 ml/min/1.73 sqM) Glucose 351 H (74-99) mg/dL Calcium 9.4 (8.4-10.2) mg/dL Total Bilirubin 0.6 (0.2-1.3) mg/dL AST 64 H (14-36) U/L ALT 68 H (4-34) U/L Alkaline Phosphatase 96 (38-126) U/L Troponin I (0.000-0.034) ng/mL Total Protein 7.8 (6.3-8.2) g/dL Albumin 4.5 (3.5-5.0) g/dL Lipase 244 (23-300) U/L 05/04/21 Range/Units 15:59 WBC (3.8-10.6) k/uL RBC (3.80-5.40) m/uL Hgb (11.4-16.0) gm/dL Hct (34.0-46.0) % MCV (80.0-100.0) fL MCH (25.0-35.0) pg MCHC (31.0-37.0) g/dL RDW (11.5-15.5) % Plt Count (150-450) k/uL MPV Neutrophils % % Lymphocytes % % Monocytes % % Eosinophils % % Basophils % % Neutrophils # (1.3-7.7) k/uL Lymphocytes # (1.0-4.8) k/uL Monocytes # (0-1.0) k/uL Eosinophils # (0-0.7) k/uL Basophils # (0-0.2) k/uL PT (9.0-12.0) sec INR (<1.2) APTT (22.0-30.0) sec Sodium (137-145) mmol/L Potassium (3.5-5.1) mmol/L Chloride (98-107) mmol/L Carbon Dioxide (22-30) mmol/L Anion Gap mmol/L BUN (7-17) mg/dL Creatinine (0.52-1.04) mg/dL Est GFR (CKD-EPI)AfAm (>60 ml/min/1.73 sqM) Est GFR (CKD-EPI)NonAf (>60 ml/min/1.73 sqM) Glucose (74-99) mg/dL Calcium (8.4-10.2) mg/dL Total Bilirubin (0.2-1.3) mg/dL AST (14-36) U/L ALT (4-34) U/L Alkaline Phosphatase (38-126) U/L Troponin I 0.398 H* (0.000-0.034) ng/mL Total Protein (6.3-8.2) g/dL Albumin (3.5-5.0) g/dL Lipase (23-300) U/L Critical Care Time Critical Care Time: Yes Total Critical Care Time: 33 Disposition Clinical Impression: NSTEMI (non-ST elevated myocardial infarction) Disposition: ADMITTED IP TO THIS [facility] Condition: Critical Referrals: Haritha Villatoro MD [Primary Care Provider] - 1-2 days
[2021-05-04] MEDS ORDERED: NITROGLYCERIN SL TABS 0.4 MG TAB SUBLINGUAL STA (15:54)
[2021-05-04] MEDS ORDERED: ASPIRIN 81 MG PO STA (15:54)
[2021-05-04 16:12] LABS: Basophils % (A) 0 %; Eosinophils # (A) 0.3 k/uL (0-0.7); Eosinophils % (A) 4 %; HCT 39.1 % (34.0-46.0); Lymphocytes # (A) 1.2 k/uL (1.0-4.8); Lymphocytes % (A) 14 %; MCH 30.2 pg (25.0-35.0); MCHC 33.1 g/dL (31.0-37.0); MCV 91.1 fL (80.0-100.0); Mean Platelet Volume 7.4; Monocytes # (A) 0.3 k/uL (0-1.0); Monocytes % (A) 3 %; Neutrophils # (A) 6.6 k/uL (1.3-7.7); Neutrophils % (A) 78 %; Platelet Count 208 k/uL (150-450); RBC 4.29 m/uL (3.80-5.40); RDW 14.7 % (11.5-15.5); WBC 8.5 k/uL (3.8-10.6)
[2021-05-04 16:21] LABS: Albumin 4.5 g/dL (3.5-5.0); Calcium 9.4 mg/dL (8.4-10.2); Potassium 4.7 mmol/L (3.5-5.1); Total Bilirubin 0.6 mg/dL (0.2-1.3); Total Protein 7.8 g/dL (6.3-8.2)
[2021-05-04 16:26] LABS: Partial Thromboplastin Time 23.9 sec (22.0-30.0)
--- NOTE | 2021-05-04 16:31 | XR ---
EXAMINATION TYPE: XR chest 1V portable DATE OF EXAM: 05/04/2021 COMPARISON: Chest x-ray May 05, 2020. Chest CT April 06, 2021. HISTORY: History of kidney cancer with chest pain. TECHNIQUE: Single frontal view of the chest is obtained. FINDINGS: There is no suspicious new focal air airspace opacity, pleural effusion, or pneumothorax s een bilaterally. Cardiac silhouette size remains upper limits of normal. The osseous structures are somewhat demineralized. IMPRESSION: No acute process. No significant change from prior chest x-ray.
[2021-05-04] MEDS ORDERED: HEPARIN SODIUM 1,000 UN/ML (10ML VL) IV ONE (16:39)
[2021-05-04] MEDS ORDERED: HEPARIN SODIUM 1,000 UN/ML (10ML VL) IV PRN (16:39)
[2021-05-04] MEDS ORDERED: HEPARIN SOD,PORK IN 0.45% NACL 25,000 UNIT in 0.45% NACL 1 250ML.BAG IV SCH (16:45)
[2021-05-04] MEDS ORDERED: NITROGLYCERIN-D5W PMX 50 MG in DEXTROSE/WATER 1 250ML.BAG IV ONE (16:54)
[2021-05-04] MEDS ORDERED: NALOXONE 0.4 MG/ML 1 ML VIAL IV PRN (17:22)
[2021-05-04] MEDS ORDERED: VERAPAMIL 2.5 MG/ML 2 ML AMP ONE (17:34)
[2021-05-04] MEDS ORDERED: HEPARIN SODIUM 1,000 UN/ML (10ML VL) ONE (17:34)
[2021-05-04] MEDS ORDERED: LIDOCAINE 1% INJ 10MG/ML (20 ML MDV) ONE (17:35)
[2021-05-04] MEDS ORDERED: MIDAZOLAM HCL 10 MG/10 ML VIAL IVP ONE (18:17)
[2021-05-04] MEDS ORDERED: LIDOCAINE 1% INJ 10MG/ML (20 ML MDV) SQ ONE (18:18)
[2021-05-04] MEDS ORDERED: VERAPAMIL SYRINGE (5 MG/10 ML) INTRAARTER ONE (18:20)
[2021-05-04] MEDS: HEPARIN SODIUM 1,000 UN/ML (10ML VL) IV ONE ×3 (18:21→18:49)
[2021-05-04] MEDS ORDERED: FUROSEMIDE 10 MG/ML 4 ML VIAL ONE (18:31)
[2021-05-04] MEDS ORDERED: MORPHINE SULFATE 4 MG/ML SYRINGE ONE (18:35)
[2021-05-04] MEDS ORDERED: FUROSEMIDE 10 MG/ML 4 ML VIAL IV ONE (18:36)
[2021-05-04] MEDS ORDERED: MORPHINE SULFATE 4 MG/ML SYRINGE IVP ONE (18:36)
[2021-05-04] MEDS ORDERED: niCARdipine 25 MG/10 ML VIAL ONE (18:45)
[2021-05-04] MEDS: NITROGLYCERIN 1000MCG/10ML SYRINGE INTRACORON ONE ×3 (18:47→19:03)
[2021-05-04] MEDS ORDERED: TICAGRELOR 90 MG TAB ONE (19:04)
[2021-05-04] MEDS ORDERED: TICAGRELOR 90 MG TAB PO ONE (19:10)
[2021-05-04] MEDS ORDERED: IOPAMIDOL-370 125ML BTL INJ ONE (19:10)
[2021-05-04] MEDS ORDERED: NALOXONE 0.4 MG/ML 1 ML VIAL IVP PRN (19:20)
--- NOTE | 2021-05-04 19:27 | P.CRDCN ---
History of Present Illness Consult date: 05/04/21 Chief complaint: Chest pain History of present illness: The patient is a 76-year-old female patient with a past medical history significant for diabetes and hypertension and dyslipidemia presented to the emergency department complaining of chest discomfort. She was in her usual state of health until earlier today when she started experiencing discomfort in the middle of the chest as a pressure on the chest with no radiation to the arms or neck or shoulders or back. She was experiencing shortness of breath with the pain. She presented to the emergency department where she was given nitroglycerin with improvement in her symptoms. The EKG showed sinus rhythm with PVCs but there was only nonspecific ST and T wave abnormalities and no ST segment elevation noted on the EKG. Because of the ongoing chest discomfort when he started to take the patient to the cardiac shop laborer. She underwent an emergent heart catheterization and that revealed calcified right and left coronary system with critical disease involving the ostial LAD from the left main as well as intermediate disease involving the left circumflex and severe focal eccentric lesion involving the RCA. Also she was found to have extremely elevated left-sided filling pressure. Subsequently the patient underwent successful PCI of the LAD with an excellent angiographic re sults with restoring KAVITHA-3 flow to the LAD and without any complication from right radial approach. She tolerated the procedure very well. Currently she is chest pain-free. The patient will be admitted to the intensive care. And she would be on dual antiplatelet therapy along with anti-ischemic medications and high intensity statin and she will be diuresed for at least 24 hours because her left sided filling pressure was extremely elevated. Past Medical History Past Medical History: Diabetes Mellitus, Hyperlipidemia, Hypertension Additional Past Medical History / Comment(s): HEART MURMUR. History of Any Multi-Drug Resistant Organisms: None Reported Past Surgical History: Appendectomy, Back Surgery, Cholecystectomy, Hysterectomy, Orthopedic Surgery Additional Past Surgical History / Comment(s): "NECK LAMINECTOMY". LEFT BREAST BIOPSY- BENIGN. LEFT SHOULDER. Past Anesthesia/Blood Transfusion Reactions: No Reported Reaction Past Psychological History: Anxiety Smoking Status: Never smoker Past Alcohol Use History: None Reported Past Drug Use History: None Reported - Past Family History Mother Additional Family Medical History / Comment(s): Aneurism Father Family Medical History: Myocardial Infarction (NH) Medications and Allergies Home Medications Medication Instructions Recorded Confirmed Type Atorvastatin Calcium [Lipitor] 40 mg PO HS 05/04/21 05/04/21 History Cholecalciferol [Vitamin D3 (25 50 mcg PO DAILY 05/04/21 05/04/21 History Mcg = 1000 Iu)] Glimepiride [Amaryl] 4 mg PO DAILY 05/04/21 05/04/21 History Triamterene-Hctz 37.5-25Mg 1 cap PO W/BRKFST 05/04/21 05/04/21 History [Dyazide 37.5-25 Capsule] amLODIPine BESYLATE/BENAZEPRIL 1 cap PO DAILY 05/04/21 05/04/21 History [amLODIPine BESYLATE/BENAZEPRIL 10-40 mg] metFORMIN HCL [Glucophage] 1,000 mg PO BID 05/04/21 05/04/21 History Allergies Allergy/AdvReac Type Severity Reaction Status Date / Time enalaprilat [From Vasotec] Allergy Anaphylaxis Verified 05/04/21 16:21 Physical Exam Vitals: Vital Signs Temp Pulse Resp BP Pulse Ox 05/04/21 17:20 92 20 156/77 96 05/04/21 16:55 95 20 152/66 96 05/04/21 16:28 91 20 152/76 94 L 05/04/21 15:34 97.9 F 93 18 151/67 97 Intake and Output 05/04/21 05/04/21 05/04/21 06:59 14:59 22:59 Intake Total 150 Balance 150 Intake: IV 150 Other: Weight 73.936 kg - Constitutional General appearance: no acute distress - Respiratory Respiratory: bilateral: CTA - Cardiovascular Rhythm: regular Heart sounds: normal: S1, S2 Abnormal Heart Sounds: systolic murmur Results 05/04/21 15:59 05/04/21 15:59 Cardiac Enzymes 05/04/21 05/04/21 Range/Units 15:59 15:59 AST 64 H (14-36) U/L Troponin I 0.398 H* (0.000-0.034) ng/mL Coagulation 05/04/21 Range/Units 15:59 PT 11.0 (9.0-12.0) sec APTT 23.9 (22.0-30.0) sec CBC 05/04/21 Range/Units 15:59 WBC 8.5 (3.8-10.6) k/uL RBC 4.29 (3.80-5.40) m/uL Hgb 13.0 (11.4-16.0) gm/dL Hct 39.1 (34.0-46.0) % Plt Count 208 (150-450) k/uL Comprehensive Metabolic Panel 05/04/21 Range/Units 15:59 Sodium 138 (137-145) mmol/L Potassium 4.7 (3.5-5.1) mmol/L Chloride 104 (98-107) mmol/L Carbon Dioxide 21 L (22-30) mmol/L BUN 27 H (7-17) mg/dL Creatinine 1.05 H (0.52-1.04) mg/dL Glucose 351 H (74-99) mg/dL Calcium 9.4 (8.4-10.2) mg/dL AST 64 H (14-36) U/L ALT 68 H (4-34) U/L Alkaline Phosphatase 96 (38-126) U/L Total Protein 7.8 (6.3-8.2) g/dL Albumin 4.5 (3.5-5.0) g/dL Current Medications Generic Name Dose Route Start Last Admin Trade Name Freq PRN Reason Stop Dose Admin Amlodipine Besylate 10 mg 05/05/21 09:00 Amlodipine 10 Mg Tab PO DAILY [facility] Aspirin 81 mg 05/05/21 09:00 Aspirin 81 Mg PO DAILY [facility] Atorvastatin Calcium 40 mg 05/04/21 21:00 Atorvastatin 40 Mg Tab PO HS [facility] Cholecalciferol 50 mcg 05/05/21 09:00 Cholecalciferol 25 Mcg (1000 Iu) Tablet PO DAILY [facility] Glimepiride 4 mg 05/05/21 09:00 Glimepiride 4 Mg Tab PO DAILY [facility] Heparin Sodium (Porcine) 0 unit 05/04/21 16:39 Heparin Sodium 1,000 Un/Ml (10ml Vl) IV PER PROTOCOL PRN Low PTT Protocol Heparin Sodium/Sodium Chloride 250 mls @ 8.872 mls/hr 05/04/21 16:45 05/04/21 16:51 25,000 unit/ Sodium Chloride IV 12 units/kg/hr .Q24H JANETTE 8.872 mls/hr Administration Protocol 12 UNITS/KG/HR Nitroglycerin/Dextrose 50 mg/ 250 mls @ 3 mls/hr 05/04/21 16:54 IV Solution IV 05/05/21 16:53 .Q24H ONE Protocol 10 MCG/MIN Sodium Chloride 1,000 mls @ 110 mls/hr 05/04/21 17:30 Saline 0.9% IV .[id number] JANETTE Sodium Chloride 1,000 ml/ IV 1,000 mls @ 75 mls/hr 05/04/21 19:30 Solution IV 05/05/21 01:31 .[id number] JANETTE Naloxone HCl 0.2 mg 05/04/21 17:22 Naloxone 0.4 Mg/Ml 1 Ml Vial IV Q2M PRN Opioid Reversal Naloxone HCl 0.2 mg 05/04/21 19:20 Naloxone 0.4 Mg/Ml 1 Ml Vial IVP Q2M PRN Opioid Reversal Intake and Output 05/04/21 05/04/21 05/04/21 06:59 14:59 22:59 Intake Total 150 Balance 150 Intake: IV 150 Other: Weight 73.936 kg Patient Weight 05/05/21 06:59 Weight 73.936 kg 05/04/21 15:59 05/04/21 15:59 Assessment and Plan Assessment: Assessment #1 acute non-ST elevation myocardial infarction #2 critical disease involving the ostial LAD. #3 successful stenting of the LAD #4 elevated left-sided filling pressure #5 mildly aortic stenosis #6 multiple comorbid conditions including diabetes and hypertension and dyslipidemia Plan #1 continue dual antiplatelet therapy #2 aggressive cholesterol control #3 risk factors modification #4 an echocardiogram was Doppler #5 IV diuretics for the next 24 hours #6 address the treatment for the lesion in the right coronary artery down the line Thank you for allowing us participate in her care and we will continue following up with the patient
[2021-05-04] MEDS ORDERED: SODIUM CHLORIDE 0.9% 1,000 ML in EMPTY BAG 1 BAG IV SCH (19:30)
--- NOTE | 2021-05-04 19:35 | P.PCN ---
Date of Procedure: 05/04/21 Operative Findings: CARDIAC CATHETERIZATION AND PERCUTANEOUS CORONARY INTERVENTION PERFORMING PHYSICIAN: Roldan Neito MD, RPVI PROCEDURE PERFORMED: 1. Selective right and left coronary angiogram 2. Left heart catheterization 3. Successful stenting of ostial left anterior descending artery using 3.0 x 15 mm Xience CRYSTAL which with an excellent angiographic results 4. Intravascular ultrasound of the left anterior descending artery INDICATION: This is a 76-year-old female patient with diabetes and hypertension and emergency department with a chest discomfort and non-specific ST and T wave abnormalities on the EKG. Because she continues to have ongoing chest discomfort with decided to pursue with a heart catheterization. COMPLICATION: None APPROACH: Right radial artery LEVEL OF SEDATION: Moderate with the sedation time off 48 minutes PROCEDURE DESCRIPTION: After obtaining an informed consent the patient was brought to the cardiac center medical and lab director. The right radial artery was cannulated using micropuncture technique, the micropuncture wire passed easily then I placed a 6-Japanese sheath. I gave the patient 2 mg of verapamil IA. Anticoagulation was heparin was initiated and continuous ACT monitoring was performed throughout the procedure I did selective right and left coronary angiogram using JR4 and JL 3.5 catheters. Left heart catheterization was performed using 5-Japanese pigtail catheter. After that I did intervene on the LAD. The procedure was completed without any complication SELECTIVE CORONARY ANGIOGRAM: The right coronary artery: Calcified. Its a dominant vessel. The proximal RCA has eccentric lesion appeared to be in the range of 70% and seems to be very focal. The mid RCA has mild disease only on the RCA distally appeared to have mild disease. The RCA distally bifurcates into PDA and PLV branches and both appeared to be angiographically normal. Left main: It is calcified with mild disease. Is a short left main. Bifurcates into a codominant left circumflex as well as left anterior descending artery The left circumflex: Is a large caliber vessel a codominant vessel. The proximal left circumflex has mild disease only. Gives rises into the first and second and third obtuse marginal branches. There is intermediate lesion in the proximal left circumflex. The lesion appears to be in the range of 60-70%. The left circumflex distally appears to have mild disease only and gives rises into another OM branch which appeared to have mild disease only and the circumflex continue after that in the AV groove where it bifurcates into PDA and PLV branches. The left anterior descending artery: The ostial LAD appears to be hazy and calcified was questionable thrombus. The disease appeared to be in the range of 99.9%. The mid LAD appears to have mild disease only and LAD distally appears to be angiographically normal. HEMODYNAMICS: The LVEDP was about 32 mmHg with mild gradient identified across aortic valve PCI OF THE LAD: Anticoagulation was initiated using heparin with continuous ACT monitoring throughout the case. I did engage the left main using JL 3.5 guiding catheter. I did wire the LAD using a whisper wire and the left circumflex using a run-through wire. Subsequently balloon angioplasty was performed for the LAD using 2.5 x 12 mm balloon. After that I deployed in the proximal LAD 3.0 x 15 mm stent where the stent was positioned under fluoroscopy guidance and deployed under its nominal pressure. Postdilatation of the stent was performed using 3.0 mm NC balloon which was inflated under 14 johana multiple times in the proximal segment of the stent. The following angiogram showed good angiographic results with KAVITHA-3 flow in the LAD. After that I did intravascular ultrasound of the proximal LAD which showed that the stent was well deployed and well opposed to the wall. The procedure was completed without any complication CONCLUSION: #1 Acute coronary syndrome in this 76-year-old female patient with diabetes and hypertension and dyslipidemia #2 Extremely calcified right and left coronary systems #3 Critical disease involving the ostial LAD. I performed successful stenting of the LAD with an excellent angiographic results #4 Intermediate disease involving the proximal LCx #5 Severe disease involving the proximal RCA #6 Extremely elevated left-sided filling pressure #7 Mild gradient across aortic valve #8 The procedure was performed from right radial approach POSTPROCEDURE MANAGEMENT: #1 dual antiplatelet therapy #2 aggressive cholesterol control #3 follow-up with the patient
[2021-05-04 19:40] LABS: Glucose,Whole Blood 181 mg/dL (75-99)
[2021-05-04] MEDS: SODIUM CHLORIDE 0.9% 1,000 ML IV SCH (20:36)
[2021-05-04 21:00] LABS: Glucose,Whole Blood 148 mg/dL (75-99)
[2021-05-04] MEDS ORDERED: ATORVASTATIN 40 MG TAB PO SCH (21:00)
[2021-05-04] MEDS: FUROSEMIDE 10 MG/ML 2 ML VIAL IV SCH (21:15)
[2021-05-04] MEDS: TICAGRELOR 90 MG TAB PO SCH (21:17)
[2021-05-04] MEDS: INSULIN ASPART (NovoLOG) 100 UNIT/ML VIAL SQ SCH (21:19)
[2021-05-05 00:06] LABS: Glucose,Whole Blood 169 mg/dL (75-99)
--- NOTE | 2021-05-05 00:53 | CT ---
CT scan of the brain. History weakness. Comparison none. TECHNIQUE: Images of the brain obtained without contrast. Ventricles and sulci appear normal. There is no mass effect or midline shift. There is no sign of int racranial hemorrhage. The calvarium is intact. Sella turcica appears normal. IMPRESSION: Negative unenhanced head CT scan.
[2021-05-05 01:41] LABS: Basophils % (A) 0 %; Eosinophils # (A) 0.3 k/uL (0-0.7); Eosinophils % (A) 3 %; HCT 38.4 % (34.0-46.0); HGB 12.8 gm/dL (11.4-16.0); Lymphocytes # (A) 1.6 k/uL (1.0-4.8); Lymphocytes % (A) 16 %; MCH 30.3 pg (25.0-35.0); MCHC 33.4 g/dL (31.0-37.0); MCV 90.6 fL (80.0-100.0); Mean Platelet Volume 7.2; Monocytes # (A) 0.4 k/uL (0-1.0); Monocytes % (A) 4 %; Neutrophils # (A) 7.3 k/uL (1.3-7.7); Neutrophils % (A) 75 %; Platelet Count 189 k/uL (150-450); RBC 4.23 m/uL (3.80-5.40); RDW 14.7 % (11.5-15.5); WBC 9.7 k/uL (3.8-10.6)
[2021-05-05 01:55] LABS: Partial Thromboplastin Time 25.4 sec (22.0-30.0); Prothrombin Time 10.8 sec (9.0-12.0)
[2021-05-05 02:06] LABS: Albumin 4.1 g/dL (3.5-5.0); Calcium 9.2 mg/dL (8.4-10.2); Potassium 4.1 mmol/L (3.5-5.1); Total Bilirubin 0.6 mg/dL (0.2-1.3); Total Protein 7.3 g/dL (6.3-8.2)
--- NOTE | 2021-05-05 02:49 | US ---
EXAMINATION TYPE: US upper ext pseudo RT DATE OF EXAM: 05/05/2021 COMPARISON: NONE CLINICAL HISTORY: post cath pain, and difficulty moving . Post cath pain Patient had right radial heart cath done 05/04/21. Patient is experiencing right upper extremity pain beginning at the right should, radiating down the extremity. The right upper extremity arteries were scanned and assessed. There is blood flow and no signs of sig nificant post catheterization abnormalities. IMPRESSION: There is arterial flow demonstrated in the carotid and axillary and brachial artery. Norm al waveforms are seen. No evidence of thrombosis. There is arterial flow in the radial artery. No alessandro dence of a pseudoaneurysm. No significant pathologic fluid collection.
[2021-05-05] MEDS: SODIUM CHLORIDE 0.9% 1,000 ML IV SCH ×2 (05:50→13:58)
[2021-05-05 06:30] LABS: Prothrombin Time 11.2 sec (9.0-12.0)
[2021-05-05 06:48] LABS: Glucose,Whole Blood 128 mg/dL (75-99)
[2021-05-05] MEDS: INSULIN ASPART (NovoLOG) 100 UNIT/ML VIAL SQ SCH ×4 (06:49→20:03)
--- NOTE | 2021-05-05 08:02 | US ---
EXAMINATION TYPE: US venous doppler duplex UE RT DATE OF EXAM: 05/05/2021 COMPARISON: NONE CLINICAL HISTORY: exclude DVT. Right arm pain for the past day. SIDE PERFORMED: Right arm Right Arm: Negative for DVT IMPRESSION: No evidence for DVT
--- NOTE | 2021-05-05 08:43 | P.PN ---
Subjective Progress Note Date: 05/05/21 Principal diagnosis: Acute coronary syndrome The patient is a pleasant 76-year-old female patient with a past medical history significant for diabetes and hypertension and dyslipidemia who presented to the hospital complaining of chest discomfort. She continues to have ongoing chest discomfort. For that reason emergent heart catheterization was advised. The patient underwent a heart catheterization and during the procedure he had some ST changes just before we started the procedure consistent with ST segment elevation NC. She underwent an emergent heart catheterization and that revealed occluded LAD in the ostium and severe disease involving the LCx as well as intermediate to severe disease involving the RCA. The patient underwent successful stenting of the LAD with a good angiographic results and without any complication. She was seen this morning. She is asymptomatic into chest pain or chest discomfort. Apparently last night she developed right arm weakness/pain. There was a concern about stroke and the stroke code was called. She underwent a computed tomography scan of the brain which did not show any acute abnormalities. Currently neurology is on the case. When she was seen this morning she has good right radial pulse. She still have a pain in the right arm. She underwent also an arterial duplex study came in to be unremarkable and venous plexus of the came in to be unremarkable as well. She is on dual antiplatelet therapy an intermediate intensity statin. She is also on Lasix IV Objective - Vital Signs Vital signs: Vital Signs Temp 97.7 F 05/05/21 04:00 Pulse 76 05/05/21 07:00 Resp 23 05/05/21 07:00 BP 144/68 05/05/21 07:00 Pulse Ox 94 L 05/05/21 07:00 Intake & Output 05/04/21 05/05/21 05/05/21 18:59 06:59 18:59 Intake Total 150 525 Output Total 1850 Balance 150 -1325 Weight 75.7 kg 73.3 kg Intake: IV 150 525 Sodium Chloride 0.9% 1, 525 000 ml In Empty Bag 1 bag @ 75 mls/hr IV .[id number] JANETTE Rx#:[id number] Output: Urine 1850 Other: # Voids 0 - Constitutional General appearance: Present: no acute distress - Respiratory Respiratory: bilateral: CTA - Cardiovascular Rhythm: regular Heart sounds: normal: S1, S2 - Labs CBC & Chem 7: 05/05/21 01:15 05/05/21 01:15 Labs: Abnormal Lab Results - Last 24 Hours (Table) 05/04/21 05/04/21 05/04/21 Range/Units 15:59 15:59 19:38 Sodium (137-145) mmol/L Carbon Dioxide 21 L (22-30) mmol/L BUN 27 H (7-17) mg/dL Creatinine 1.05 H (0.52-1.04) mg/dL Glucose 351 H (74-99) mg/dL POC Glucose (mg/dL) 181 H (75-99) mg/dL AST 64 H (14-36) U/L ALT 68 H (4-34) U/L Troponin I 0.398 H* (0.000-0.034) ng/mL 05/04/21 05/05/21 05/05/21 Range/Units 20:57 00:04 01:15 Sodium 136 L (137-145) mmol/L Carbon Dioxide (22-30) mmol/L BUN 23 H (7-17) mg/dL Creatinine (0.52-1.04) mg/dL Glucose 178 H (74-99) mg/dL POC Glucose (mg/dL) 148 H 169 H (75-99) mg/dL AST 150 H (14-36) U/L ALT 66 H (4-34) U/L Troponin I (0.000-0.034) ng/mL 05/05/21 05/05/21 Range/Units 01:15 06:47 Sodium (137-145) mmol/L Carbon Dioxide (22-30) mmol/L BUN (7-17) mg/dL Creatinine (0.52-1.04) mg/dL Glucose (74-99) mg/dL POC Glucose (mg/dL) 128 H (75-99) mg/dL AST (14-36) U/L ALT (4-34) U/L Troponin I 34.400 H* (0.000-0.034) ng/mL Assessment and Plan Assessment: Assessment #1 acute non-ST elevation myocardial infarction #2 critical disease involving the ostial LAD. #3 successful stenting of the LAD #4 elevated left-sided filling pressure #5 mildly aortic stenosis #6 multiple comorbid conditions including diabetes and hypertension and dyslipidemia Plan #1 continue dual antiplatelet therapy #2 aggressive cholesterol control #3 risk factors modification #4 follow-up on the echocardiogram #5 IV diuretics for the next 24 hours #6 address the treatment for the lesion in the right coronary artery down the line Thank you for allowing us participate in her care and we will continue following up with the patient
[2021-05-05] MEDS ORDERED: lisinopriL 20 MG TAB PO SCH (09:00)
[2021-05-05] MEDS ORDERED: amLODIPine 10 MG TAB PO SCH (09:00)
[2021-05-05] MEDS ORDERED: OXYMETAZOLINE 0.05% NASL SPRAY 1 SPRAY BOTTLE NASAL SCH (09:45)
[2021-05-05] MEDS ORDERED: MUPIROCIN 2% OINT 22 GM TUBE TOPICAL ONE (11:09)
--- NOTE | 2021-05-05 11:13 | P.CNNES ---
History of Present Illness Consult date: 05/05/21 Requesting physician: Estephania Simental Reason for Consult: new right upper extremity weakness History of Present Illness: This is a 76-year-old woman medical history of hypertension, hyperlipidemia, diabetes mellitus, renal cancer who presented to the emergency department on 05/04/2021 for chest pain. Neurology is consulted for new right upper extremity weakness. Patient received IV heparin drip. Patient presented with chest pain and had nonspecific ST and T-wave abnormality on EKG and the she went for heart cath on on 05/04/2021 the approach of the cath was through the right radial artery and it's reported that the patient has acute coronary syndrome, extremely calcified right and left coronary system, critical disease involving the ostial LAD in which she had successful stenting of the LAD and she has severe disease involving the proximal right RCA. According to the patient yesterday at night but the patient is not sure she noticed that she is having significant right shoulder pain and difficulty raising her right arm. She stated that prior to the procedure she had no difficulties but the within a few hours in the ICU after the procedure she noticed that she's having shoulder pain. She denies of any numbness over the right upper extremity. She denies of any neck pain any headache nausea any vomi ting. She denies any weakness in lower extremities. Today the patient is having significant epistaxis and upon seeing her she holding the pen. Some other workup in the hospital consisted of: Initial blood pressure is 151/67, heart rate of 93, temperature of 97.9 Oral. CBC with differential is unremarkable Initial creatinine is 1.05, AST 64, ALTs of 68, initial troponin is 0.398 him a glucose of 351 otherwise the rest of chemistry panel is unremarkable. PT, PTT and INR is unremarkable Per the nurse a stroke code was activated. Because of the concern of the right upper extremity weakness that was new. CT of the head is reported as negative unenhanced head CT scan. I personally reviewed the CT of the head there is no acute or subacute ischemia. No IV TPA since the patient received heparin for the procedure and had a recent procedure. And the risks outweigh the benefits. Patient had upper extremity arterial duplex and was reported as there is arterial flow demonstrated in the carotid and axillary and the brachial artery. Normal waveforms are seen. No evidence of thrombosis. There is arterial flow in the radial artery. No evidence of pseudoaneurysm. No significant pathological of fluid collection. Venous duplex was reported as negative DVT of the right upper extremity. Review of Systems Review of system: The 12 point system was reviewed and apparent positive and negative per HPI. Past Medical History Past Medical History: Diabetes Mellitus, Hyperlipidemia, Hypertension Additional Past Medical History / Comment(s): HEART MURMUR. History of Any Multi-Drug Resistant Organisms: None Reported Past Surgical History: Appendectomy, Back Surgery, Cholecystectomy, Hysterectomy, Orthopedic Surgery Additional Past Surgical History / Comment(s): "NECK LAMINECTOMY". LEFT BREAST BIOPSY- BENIGN. LEFT SHOULDER. Past Anesthesia/Blood Transfusion Reactions: No Reported Reaction Past Psychological History: Anxiety Smoking Status: Never smoker Past Alcohol Use History: None Reported Past Drug Use History: None Reported - Past Family History Mother Additional Family Medical History / Comment(s): Aneurism Father Family Medical History: Myocardial Infarction ([place]) Medications and Allergies Home Medications Medication Instructions Recorded Confirmed Type Atorvastatin Calcium [Lipitor] 40 mg PO HS 05/04/21 05/04/21 History Cholecalciferol [Vitamin D3 (25 50 mcg PO DAILY 05/04/21 05/04/21 History Mcg = 1000 Iu)] Glimepiride [Amaryl] 4 mg PO DAILY 05/04/21 05/04/21 History Triamterene-Hctz 37.5-25Mg 1 cap PO W/BRKFST 05/04/21 05/04/21 History [Dyazide 37.5-25 Capsule] amLODIPine BESYLATE/BENAZEPRIL 1 cap PO DAILY 05/04/21 05/04/21 History [amLODIPine BESYLATE/BENAZEPRIL 10-40 mg] metFORMIN HCL [Glucophage] 1,000 mg PO BID 05/04/21 05/04/21 History Allergies Allergy/AdvReac Type Severity Reaction Status Date / Time enalaprilat [From Vasotec] Allergy Anaphylaxis Verified 05/04/21 16:21 Physical Examination - Vital Signs Vital Signs: Vital Signs Temp Pulse Resp BP Pulse Ox 05/05/21 07:00 76 23 144/68 94 L 05/05/21 06:45 73 24 130/65 96 05/05/21 06:30 75 19 135/68 93 L 05/05/21 06:15 73 25 H 125/62 93 L 05/05/21 06:00 75 17 131/70 93 L 05/05/21 05:45 74 23 138/69 95 05/05/21 05:30 73 25 H 131/66 96 05/05/21 05:15 71 26 H 121/71 96 05/05/21 05:00 75 17 120/77 96 05/05/21 04:45 72 15 150/74 98 05/05/21 04:30 77 26 H 128/62 96 05/05/21 04:15 70 23 130/66 96 05/05/21 04:00 97.7 F 72 20 131/67 96 05/05/21 03:45 78 18 133/68 94 L 05/05/21 03:30 73 24 136/60 95 05/05/21 03:15 74 25 H 140/68 96 05/05/21 03:00 74 22 148/66 95 05/05/21 02:45 76 18 149/69 96 05/05/21 02:30 73 17 150/78 97 05/05/21 02:15 80 24 124/88 95 05/05/21 02:00 73 16 139/70 95 05/05/21 01:45 77 25 H 141/69 94 L 05/05/21 01:30 76 14 138/68 94 L 05/05/21 01:15 77 26 H 148/72 95 05/05/21 01:00 99.4 F 80 20 148/72 96 05/05/21 00:30 76 20 144/73 96 05/05/21 00:15 80 22 127/73 95 05/05/21 00:00 69 27 H 130/69 95 05/04/21 23:45 70 13 133/68 97 05/04/21 23:30 68 9 L 104/78 97 05/04/21 23:15 73 11 L 132/70 97 05/04/21 23:00 73 18 137/69 05/04/21 22:45 75 20 140/70 95 05/04/21 22:30 72 18 143/72 95 05/04/21 22:15 71 20 137/70 95 05/04/21 22:00 67 16 135/71 96 05/04/21 21:45 74 15 140/74 95 05/04/21 21:30 81 20 131/86 95 05/04/21 21:20 73 16 131/86 96 05/04/21 21:10 74 15 152/78 96 05/04/21 21:00 78 14 146/81 95 05/04/21 20:50 80 20 146/81 95 05/04/21 20:40 80 16 138/68 95 05/04/21 20:30 78 20 96 05/04/21 20:20 80 18 133/92 91 L 05/04/21 20:10 78 11 L 126/74 93 L 05/04/21 20:00 98.1 F 82 18 93 L 05/04/21 19:50 76 22 127/67 92 L 05/04/21 19:40 80 17 139/76 90 L 05/04/21 19:36 81 12 05/04/21 17:20 92 20 156/77 96 05/04/21 16:55 95 20 152/66 96 05/04/21 16:28 91 20 152/76 94 L 05/04/21 15:34 97.9 F 93 18 151/67 97 Intake and Output 05/04/21 05/05/21 05/05/21 22:59 06:59 14:59 Intake Total 150 375 Output Total 1050 800 Balance -900 -425 Intake: IV 150 375 Sodium Chloride 0.9% 1, 150 375 000 ml In Empty Bag 1 bag @ 75 mls/hr IV .[id number] [facility] Rx#:[id number] Output: Urine 1050 800 Other: # Voids 2 0 Weight 75.7 kg 73.3 kg GENERAL: The patient is sitting in a recliner chair and is in mild to moderate acute distress. ENT: Has significant epistaxis and has compression on her nose, hold the nathan on left hand. CHEST: The heart rate is regular rate rhythm. No murmurs to auscultation. LUNG: Clear to auscultation bilaterally no wheezing noted throughout. Not labored breathing. ABDOMEN/GI: Bowel sounds present in all 4 quadrants. No tenderness to palpation throughout. NEUROLOGICAL: Higher mental function: The patient is awake, alert, oriented to self, place and time. Patient is following commands. No aphasia and no neglect. Cranial nerves: The pupils are round, equal and reactive to light and accommodation. Visual goodrich are full to confrontation throughout. Extraocular movement is intact no nystagmus is noted. Facial sensation is normal to touch throughout. The facial strength is normal throughout. Hearing is normal bilaterally to hand rub. Could not assess tongue because of her condition. No dysarthria is noted. Having pain over the right shoulder. Motor: Gait is deferred because of her condition. The strength is right upper extremity is limited because of pain over the right shoulder but has antigra vity. Right hand advanced developer is 4+. Otherwise 5 over 5 throughout. Decrease tone over the right upper extremity. Otherwise, normal tone and bulk. Cerebellum: Could not assess. Sensation: Sensation is normal to touch throughout. Reflexes (right/left): Right bracioradialis is 1-2+, right biceps is 2+, triceps 1-2+. Left upper extremity could not assess since holding nathan with epistaxis. Plantars are mute bilaterally. Results - Laboratory Findings CBC and BMP: 05/05/21 01:15 05/05/21 01:15 Abnormal Lab Findings: Abnormal Labs 05/04/21 05/04/21 05/04/21 15:59 15:59 19:38 Sodium Carbon Dioxide 21 L BUN 27 H Creatinine 1.05 H Glucose 351 H POC Glucose (mg/dL) 181 H AST 64 H ALT 68 H Troponin I 0.398 H* 05/04/21 05/05/21 05/05/21 20:57 00:04 01:15 Sodium 136 L Carbon Dioxide BUN 23 H Creatinine Glucose 178 H POC Glucose (mg/dL) 148 H 169 H AST 150 H ALT 66 H Troponin I 05/05/21 05/05/21 01:15 06:47 Sodium Carbon Dioxide BUN Creatinine Glucose POC Glucose (mg/dL) 128 H AST ALT Troponin I 34.400 H* Assessment and Plan Assessment: * Right upper extremity weakness and pain. It is hard to assess strength because of right shoulder pain but stated has noticed right shoulder pain post cardiac stent within a couple hours and patient had right radial access. It hard to assess if this is truly stroke at this time. Initial CT of the head is unremarkable. * Epistaxis * Acute non-ST elevation myocardial infarction * Coronary artery disease status post stenting of LAD on 05/04/2021 * Diabetes mellitus * Hypertension * Dyslipidemia Plan: Patient is on aspirin 81 mg as well as a Brilinta 90mg one tablet twice a day as well as a statin 80 mg daily at bedtime per cardiology recommendation Recommend carotid duplex. Also recommend a repeat CT of the head tomorrow once the patient is more stable especially that she has significant epistaxis. 2-D echo was ordered and is pending Per nurse ENT is paged. Continue neuro checks Consulted PT and OT. Continue cardiac monitoring We'll defer the rest of the medical management to the cardiology team and the primary team The plan is discussed with patient's nurse. Thank you for the consultation. David Monroy M.D. Neuro-Hospitalist Time with Patient: Greater than 30
[2021-05-05 11:24] LABS: HCT 37.7 % (34.0-46.0); HGB 12.5 gm/dL (11.4-16.0); MCH 30.6 pg (25.0-35.0); MCHC 33.2 g/dL (31.0-37.0); Mean Platelet Volume 8.1; Platelet Count 185 k/uL (150-450); RDW 14.1 % (11.5-15.5); WBC 12.3 k/uL (3.8-10.6)
[2021-05-05 11:30] LABS: Glucose,Whole Blood 261 mg/dL (75-99)
[2021-05-05] MEDS: ASPIRIN 81 MG PO SCH (12:02)
[2021-05-05] MEDS: TICAGRELOR 90 MG TAB PO SCH ×2 (12:02→20:03)
[2021-05-05] MEDS: GLIMEPIRIDE 4 MG TAB PO SCH (12:29)
--- NOTE | 2021-05-05 12:59 | P.HPIM ---
History of Present Illness H&P Date: 05/05/21 HISTORY OF PRESENT ILLNESS This is a 76-year-old female patient of Dr. Villatoro with a past medical history significant for diabetes mellitus type II, hypertension, hyperlipidemia, kidney tumor with scheduled surgery with Dr. Del Cid in the near future, presented to the emergency department complaining of chest discomfort in the middle on her chest without radiation. EKG was a sinus rhythm with PVCs and nonspecific ST-T wave changes. Patient also had shortness of breath. Patient was given nitroglycerin with improvement. She had continued chest pain and was taken emergently to the [facility] revealed calcified right and left coronary system with critical disease involving the ostial LAD from the left main as well as intermediate disease involving the left circumflex and severe focal eccentric lesion involving the RCA. Also she was found to have extremely elevated left- sided filling pressure. Subsequently the patient underwent successful PCI of the LAD with an excellent angiographic results with restoring KAVITHA-3 flow to the LAD and without any complication from right radial approach. Patient was started on Brilinta, aspirin 81 mg daily, Lipitor is at 80 mg at bedtime. Patient developed nosebleed this morning that lasted for 3 hours and nose clip was placed on the right side and consult was added for Dr. Urrutia who will see the patient this afternoon. Patient also developed right arm shoulder pain unable to lift her right arm and consult was added for neurology. This appears to be musculoskeletal and consult added for orthopedics and x-ray of the right shoulder. Arterial ultrasound of the right upper extremity showed arterial flow demonstrated in the carotid and axillary brachial arteries. Normal waveforms are seen. No evidence of thrombosis. No evidence of pseudoaneurysm. Venous ultrasound was negative for DVT. CAT scan of the brain was negative. Chest x-ray shows no acute process. REVIEW OF SYSTEMS Constitutional: No fever, no chills, no night sweats. No weight change. No weakness, fatigue or lethargy. No daytime sleepiness. EENT: Reports headache. No blurred vision or double vision, no loss of vision. No loss of Hearing, no ringing in the ears, no dizziness. No nasal drainage or congestion. + epistaxis. No sore throat. Lungs: No shortness of breath, cough, no sputum production. No wheezing. Cardiovascular: No chest pain, no lower extremity edema. No palpitations. No paroxysmal nocturnal dyspnea. No orthopnea. No lightheadedness or dizziness. No syncopal episodes. Abdominal: No abdominal pain. No nausea, vomiting. No diarrhea. No constipation. No bloody or tarry stools. No loss of appetite. Genitourinary: No dysuria, increased frequency, urgency. No urinary retention. Musculoskeletal: No myalgias. No muscle weakness, no gait dysfunction, no frequent falls. No back pain. No neck pain. Right shoulder pain, decreased range of motion Integumentary: No wounds, no lesions. No rash or pruritus. No unusual bruising. No change in hair or nails. Neurologic: No aphasia. No facial droop. No change in mentation. No head injury. No headache. No paralysis. No paresthesia. Psychiatric: No depression. No anxiety. No mood swings. Endocrine: No abnormal blood sugars. No weight change. No excessive sweating or thirst. No cold intolerance. SOCIAL HISTORY Patient is a nonsmoker, no alcohol use, no illicit drug use or marijuana use. She lives alone. She does not utilize devices for ambulation. No CPAP, no oxygen at home. FAMILY HISTORY at age 69 from some type of aneurysm. Father at age 69 from coronary artery disease. Patient has 1 brother that from MS and one brother passed from a lung disorder. Patient has one sister living and has had an myocardial infarction status post CABG. She is 1 sister that from cancer she does not recall the type. Patient has one son that in a motor cycle accident and one son living with no major medical problems. PHYSICAL EXAMINATION Gen: This is a 76-year-old female. Patient is sitting up in a reclin er in the ICU and appears to be comfortable. HEENT: Head is atraumatic, normocephalic. Pupils equal, round. Sclerae is anicteric. Nose clip in the right nares. No active bleeding. NECK: Supple. No JVD. No lymphadenopathy. No thyromegaly. LUNGS: Clear to auscultation. No wheezes or rhonchi. No intercostal retractions. HEART: Regular rate and rhythm. Systolic murmur. ABDOMEN: Soft. Bowel sounds are present. No masses. No tenderness. EXTREMITIES: No pedal edema. No calf tenderness. NEUROLOGICAL: Patient is awake, alert and oriented x3. Cranial nerves 2 through 12 are grossly intact. ASSESSMENT AND PLAN 1. Acute non-ST elevated myocardial infarction status post PCI of the LAD. Lesion in the right coronary artery to be addressed at a later time. Continue aspirin 81 mg daily, Lipitor 80 mg daily, Brilinta 90 mg twice daily. Echocardiogram is pending. 2. Diabetes mellitus type 2. Patient started on NovoLog scale before meals and at bedtime continue glimepiride 4 mg daily, hold metformin 1000 mg twice daily. 3. Hypertension. Continue Norvasc 10 mg daily. 4. Hyperlipidemia. Continue atorvastatin. 5. Kidney tumor, possibly malignant. Patient is scheduled for surgery with Dr. Del Cid in the near future which most likely will need to be postponed. 6. Epistaxis. Consult with ENT. 7. Right shoulder pain and decreased range of motion most likely secondary to positioning during cardiac catheterization. X-ray of the right shoulder orde red. Consult with orthopedics. 8. Right upper extremity weakness. Neurology consult appreciated. Ultrasound venous and arterial are negative. 9. GI prophylaxis. Protonix. Patient will be admitted to the hospital for a minimum of 2 night stay. DISCHARGE PLAN Home. Impression and plan of care have been directed as dictated by the signing physician. Alanna Sandoval nurse practitioner acting as scribe for signing physician. Past Medical History Past Medical History: Diabetes Mellitus, Hyperlipidemia, Hypertension Additional Past Medical History / Comment(s): HEART MURMUR. History of Any Multi-Drug Resistant Organisms: None Reported Past Surgical History: Appendectomy, Back Surgery, Cholecystectomy, Hysterectomy, Orthopedic Surgery Additional Past Surgical History / Comment(s): "NECK LAMINECTOMY". LEFT BREAST BIOPSY- BENIGN. LEFT SHOULDER. Past Anesthesia/Blood Transfusion Reactions: No Reported Reaction Past Psychological History: Anxiety Smoking Status: Never smoker Past Alcohol Use History: None Reported Past Drug Use History: None Reported - Past Family History Mother Additional Family Medical History / Comment(s): Aneurism Father Family Medical History: Myocardial Infarction ([place]) Medications and Allergies Home Medications Medication Instructions Recorded Confirmed Type Atorvastatin Calcium [Lipitor] 40 mg PO HS 05/04/21 05/04/21 History Cholecalciferol [Vitamin D3 (25 50 mcg PO DAILY 05/04/21 05/04/21 History Mcg = 1000 Iu)] Glimepiride [Amaryl] 4 mg PO DAILY 05/04/21 05/04/21 History Triamterene-Hctz 37.5-25Mg 1 cap PO W/BRKFST 05/04/21 05/04/21 History [Dyazide 37.5-25 Capsule] amLODIPine BESYLATE/BENAZEPRIL 1 cap PO DAILY 05/04/21 05/04/21 History [amLODIPine BESYLATE/BENAZEPRIL 10-40 mg] metFORMIN HCL [Glucophage] 1,000 mg PO BID 05/04/21 05/04/21 History Allergies Allergy/AdvReac Type Severity Reaction Status Date / Time enalaprilat [From Vasotec] Allergy Anaphylaxis Verified 05/04/21 16:21 Physical Exam Vitals: Vital Signs Temp Pulse Resp BP Pulse Ox 05/05/21 07:00 76 23 144/68 94 L 05/05/21 06:45 73 24 130/65 96 05/05/21 06:30 75 19 135/68 93 L 05/05/21 06:15 73 25 H 125/62 93 L 05/05/21 06:00 75 17 131/70 93 L 05/05/21 05:45 74 23 138/69 95 05/05/21 05:30 73 25 H 131/66 96 05/05/21 05:15 71 26 H 121/71 96 05/05/21 05:00 75 17 120/77 96 05/05/21 04:45 72 15 150/74 98 05/05/21 04:30 77 26 H 128/62 96 05/05/21 04:15 70 23 130/66 96 05/05/21 04:00 97.7 F 72 20 131/67 96 05/05/21 03:45 78 18 133/68 94 L 05/05/21 03:30 73 24 136/60 95 05/05/21 03:15 74 25 H 140/68 96 05/05/21 03:00 74 22 148/66 95 05/05/21 02:45 76 18 149/69 96 05/05/21 02:30 73 17 150/78 97 05/05/21 02:15 80 24 124/88 95 05/05/21 02:00 73 16 139/70 95 05/05/21 01:45 77 25 H 141/69 94 L 05/05/21 01:30 76 14 138/68 94 L 05/05/21 01:15 77 26 H 148/72 95 05/05/21 01:00 99.4 F 80 20 148/72 96 05/05/21 00:30 76 20 144/73 96 05/05/21 00:15 80 22 127/73 95 05/05/21 00:00 69 27 H 130/69 95 05/04/21 23:45 70 13 133/68 97 05/04/21 23:30 68 9 L 104/78 97 05/04/21 23:15 73 11 L 132/70 97 05/04/21 23:00 73 18 137/69 05/04/21 22:45 75 20 140/70 95 05/04/21 22:30 72 18 143/72 95 05/04/21 22:15 71 20 137/70 95 05/04/21 22:00 67 16 135/71 96 05/04/21 21:45 74 15 140/74 95 05/04/21 21:30 81 20 131/86 95 05/04/21 21:20 73 16 131/86 96 05/04/21 21:10 74 15 152/78 96 05/04/21 21:00 78 14 146/81 95 05/04/21 20:50 80 20 146/81 95 05/04/21 20:40 80 16 138/68 95 05/04/21 20:30 78 20 96 05/04/21 20:20 80 18 133/92 91 L 05/04/21 20:10 78 11 L 126/74 93 L 05/04/21 20:00 98.1 F 82 18 93 L 05/04/21 19:50 76 22 127/67 92 L 05/04/21 19:40 80 17 139/76 90 L 05/04/21 19:36 81 12 05/04/21 17:20 92 20 156/77 96 05/04/21 16:55 95 20 152/66 96 05/04/21 16:28 91 20 152/76 94 L 05/04/21 15:34 97.9 F 93 18 151/67 97 Intake and Output 05/04/21 05/05/21 05/05/21 22:59 06:59 14:59 Intake Total 150 375 Output Total 1050 800 Balance -900 -425 Intake: IV 150 375 Sodium Chloride 0.9% 1, 150 375 000 ml In Empty Bag 1 bag @ 75 mls/hr IV .[id number] [facility] Rx#:[id number] Output: Urine 1050 800 Other: # Voids 2 0 Weight 75.7 kg 73.3 kg Results CBC & Chem 7: 05/05/21 05:28 05/05/21 01:15 Labs: Abnormal Lab Results - Last 24 Hours (Table) 05/04/21 05/04/21 05/04/21 Range/Units 15:59 15:59 19:38 Sodium (137-145) mmol/L Carbon Dioxide 21 L (22-30) mmol/L BUN 27 H (7-17) mg/dL Creatinine 1.05 H (0.52-1.04) mg/dL Glucose 351 H (74-99) mg/dL POC Glucose (mg/dL) 181 H (75-99) mg/dL AST 64 H (14-36) U/L ALT 68 H (4-34) U/L Troponin I 0.398 H* (0.000-0.034) ng/mL 05/04/21 05/05/21 05/05/21 Range/Units 20:57 00:04 01:15 Sodium 136 L (137-145) mmol/L Carbon Dioxide (22-30) mmol/L BUN 23 H (7-17) mg/dL Creatinine (0.52-1.04) mg/dL Glucose 178 H (74-99) mg/dL POC Glucose (mg/dL) 148 H 169 H (75-99) mg/dL AST 150 H (14-36) U/L ALT 66 H (4-34) U/L Troponin I (0.000-0.034) ng/mL 05/05/21 05/05/21 Range/Units 01:15 06:47 Sodium (137-145) mmol/L Carbon Dioxide (22-30) mmol/L BUN (7-17) mg/dL Creatinine (0.52-1.04) mg/dL Glucose (74-99) mg/dL POC Glucose (mg/dL) 128 H (75-99) mg/dL AST (14-36) U/L ALT (4-34) U/L Troponin I 34.400 H* (0.000-0.034) ng/mL Thrombosis Risk Factor Assmnt - Choose All That Apply Each Factor Represents 1 point: Acute CO, Medical pt on bed rest, Obesity (BMI >25) Each Risk Factor Represents 2 Points: Age 61-74 years Other congenital or acquired thrombophilia - If yes, enter type in comment: No Thrombosis Risk Factor Assessment Total Risk Factor Score: 5 Thrombosis Risk Factor Assessment Level: High Risk
--- NOTE | 2021-05-05 13:31 | XR ---
EXAMINATION TYPE: XR shoulder complete RT DATE OF EXAM: 05/05/2021 CLINICAL HISTORY: pain TECHNIQUE: Three views of the right shoulder are obtained. COMPARISON: None FINDINGS: There is no acute fracture/dislocation evident. The acromioclavicular and glenohumeral brady int spaces appear mildly narrowed. The visualized ribs are intact and unremarkable. IMPRESSION: 1. There is no acute fracture or dislocation. ICD 10 NO FRACTURE, INITIAL EVALUATION
[2021-05-05] MEDS: FUROSEMIDE 10 MG/ML 2 ML VIAL IV SCH ×2 (13:57→16:58)
[2021-05-05] MEDS: CHOLECALCIFEROL 25 MCG (1000 IU) TABLET PO SCH (13:57)
[2021-05-05 16:51] LABS: Glucose,Whole Blood 181 mg/dL (75-99)
[2021-05-05] MEDS: DICLOFENAC SODIUM GEL 100 GM TUBE TOPICAL SCH ×3 (16:57→22:36)
[2021-05-05] MEDS: ACETAMINOPHEN TAB 500 MG TAB PO SCH ×2 (16:58→19:48)
--- NOTE | 2021-05-05 17:00 | ECHOF ---
Referral Reason:ACS MEASUREMENTS -------- HEIGHT: 154.9 cm WEIGHT: 73.0 kg BP: 135/68 IVSd: 1.4 cm (0.6 - 1.1) LVIDd: 5.1 cm (3.9 - 5.3) LVPWd: 1.3 cm (0.6 - 1.1) IVSs: 1.8 cm LVIDs: 2.8 cm LVPWs: 1.5 cm LA Diam: 3.3 cm (2.7 - 3.8) RVIDd: 2.7 cm (< 3.3) LAESV Index (A-L): 27.03 ml/m Ao Diam: 2.8 cm (2.0 - 3.7) AV Cusp: 1.0 cm (1.5 - 2.6) EPSS: 0.6 cm MV E Artis: 0.99 m/s MV DecT: 199 ms MV A Artis: 0.81 m/s MV E/A Ratio: 1.22 AV maxP.58 mmHg AV meanP.60 mmHg RAP: 5.00 mmHg RVSP: 27.27 mmHg MV EF SLOPE: 78.59 mm/s (70 - 150) MV EXCURSION: 12.04 mm (> 18.000) FINDINGS -------- Sinus rhythm. This was a technically adequate study. The left ventricular size is normal. There is moderate concentric left ventricular hypertrophy. O verall left ventricular systolic function is mildly impaired with, an EF between 45 - 50 %. Mid inf eroseptal LV wall motion is hypokinetic. Apical anterior LV wall motion is hypokinetic. Apical inferior LV wall motion is hypokinetic. Apical septum LV wall motion is hypokinetic. The right ventricle is normal in size. Normal LA size by volume 22+/-6 ml/m2. The right atrium is normal in size. 3 ml of Lumason was utilized for enhancement of images. Interatrial and interventricular septum intact. There is mild aortic valve sclerosis. There is mild aortic stenosis present. Peak/mean gradient a cross the Aortic Valve is 33.58mmHg / 17.60mmHg. The mitral valve leaflets are mildly thickened. Mild mitral annular calcification present. There is trace to mild mitral regurgitation. Mild tricuspid regurgitation present. Right ventricular systolic pressure is normal at < 35 mmHg. Trace/mild (physiologic) pulmonic regurgitation. The aortic root size is normal. Normal inferior vena cava with normal inspiratory collapse consistent with estimated right atrial pre ssure of 5 mmHg. There is no pericardial effusion. CONCLUSIONS -------- 1. The left ventricular size is normal. 2. There is moderate concentric left ventricular hypertrophy. 3. Overall left ventricular systolic function is mildly impaired with, an EF between 45 - 50 %. 4. Mid inferoseptal LV wall motion is hypokinetic. 5. Apical anterior LV wall motion is hypokinetic. 6. Apical inferior LV wall motion is hypokinetic. 7. Apical septum LV wall motion is hypokinetic. 8. 3 ml of Lumason was utilized for enhancement of images. 9. There is mild aortic valve sclerosis. 10. There is mild aortic stenosis present. 11. Peak/mean gradient across the Aortic Valve is 33.58mmHg / 17.60mmHg. 12. The mitral valve leaflets are mildly thickened. 13. Mild mitral annular calcification present. 14. There is trace to mild mitral regurgitation. 15. Mild tricuspid regurgitation present. 16. Trace/mild (physiologic) pulmonic regurgitation. 17. There is no pericardial effusion. HEALTH TEACHER: Lavonne Mobley RDCS
[2021-05-05] MEDS ORDERED: OXYMETAZOLINE 0.05% NASL SPRAY 1 SPRAY BOTTLE NASAL PRN (18:04)
--- NOTE | 2021-05-05 19:12 | P.CNOR ---
History of Present Illness - [facility] Consult date: 05/05/21 Consult reason: joint pain (Right shoulder pain) History of present illness: Patient is a 76-year-old female who was admitted to [facility] on 05/04/2021 with regards to chest pain. After initial workup, patient was taken to the cardiac cath technologist for a cardiac procedure, part of the procedure guarded ac cess to the right radial artery. After returning to the ICU, patient significant right shoulder pain. Patient also developed significant lack of motion, a code stroke was called. Initial workup has revealed no acute processes. Neurology has also been consulted to evaluate the patient. Patient was evaluated in the ICU, she is resting comfortably in bed. She states that she has started regain some of the motion in the right upper extremity. She notes muscle difficulty with trying to raise the arm up and active shoulder, this does reproduce pain. She is able to wiggle all the fingers, she is moving her hand and wrist. She is also moving the elbow, this is slightly restricted. She denies any previous surgical right shoulder. She had a history of a left shoulder rotator cuff repair that was done back in the early 1999. Patient has no other orthopedic complaints at this time. Review of Systems Constitutional: Reports as per [facility] Past Medical History Past Medical History: Diabetes Mellitus, Hyperlipidemia, Hypertension Additional Past Medical History / Comment(s): HEART MURMUR. History of Any Multi-Drug Resistant Organisms: None Reported Past Surgical History: Appendectomy, Back Surgery, Cholecystectomy, Hysterectomy, Orthopedic Surgery Additional Past Surgical History / Comment(s): "NECK LAMINECTOMY". LEFT BREAST BIOPSY- BENIGN. LEFT SHOULDER. Past Anesthesia/Blood Transfusion Reactions: No Reported Reaction Past Psychological History: Anxiety Smoking Status: Never smoker Past Alcohol Use History: None Reported Past Drug Use History: None Reported - Past Family History Mother Additional Family Medical History / Comment(s): Aneurism Father Family Medical History: Myocardial Infarction (VT) Medications and Allergies Home Medications Medication Instructions Recorded Confirmed Type Atorvastatin Calcium [Lipitor] 40 mg PO HS 05/04/21 05/04/21 History Cholecalciferol [Vitamin D3 (25 50 mcg PO DAILY 05/04/21 05/04/21 History Mcg = 1000 Iu)] Glimepiride [Amaryl] 4 mg PO DAILY 05/04/21 05/04/21 History Triamterene-Hctz 37.5-25Mg 1 cap PO W/BRKFST 05/04/21 05/04/21 History [Dyazide 37.5-25 Capsule] amLODIPine BESYLATE/BENAZEPRIL 1 cap PO DAILY 05/04/21 05/04/21 History [amLODIPine BESYLATE/BENAZEPRIL 10-40 mg] metFORMIN HCL [Glucophage] 1,000 mg PO BID 05/04/21 05/04/21 History Allergies Allergy/AdvReac Type Severity Reaction Status Date / Time enalaprilat [From Vasotec] Allergy Anaphylaxis Verified 05/04/21 16:21 Physical Examination Right upper extremity: No open lesions or sores are visualized throughout the extremity, there are multiple IVs present. There is no significant malalignment noted of the right shoulder compared to the contralateral side. There is no snug and soft tissue swelling present surrounding the shoulder She demonstrates mild tenderness with palpation along the anterior glenohumeral joint line. She is nontender with palpation to the proximal humerus, elbow, for earm, hand or wrist She is able wiggle all the fingers with minimal difficulty, she is able to make a fist. Extension and flexion are intact at the wrist. Extension and flexion are also intact at the elbow, this is a little bit difficult for her to do, passive motion reproduces no pain at the elbow. She is a very difficult time raising the shoulder due to pain. Passive range of motion also does reproduce a little bit of discomfort in the shoulder. Her sensation to light touch is intact throughout the extremity, she denies any focal areas of numbness or tingling. Radial and ulnar pulses are 2+ Results - Labs Labs: Abnormal Lab Results - Last 24 Hours (Table) 05/04/21 05/04/21 05/05/21 Range/Units 19:38 20:57 00:04 WBC (3.8-10.6) k/uL Sodium (137-145) mmol/L BUN (7-17) mg/dL Glucose (74-99) mg/dL POC Glucose (mg/dL) 181 H 148 H 169 H (75-99) mg/dL AST (14-36) U/L ALT (4-34) U/L Troponin I (0.000-0.034) ng/mL 05/05/21 05/05/21 05/05/21 Range/Units 01:15 01:15 05:28 WBC 12.3 H (3.8-10.6) k/uL Sodium 136 L (137-145) mmol/L BUN 23 H (7-17) mg/dL Glucose 178 H (74-99) mg/dL POC Glucose (mg/dL) (75-99) mg/dL AST 150 H (14-36) U/L ALT 66 H (4-34) U/L Troponin I 34.400 H* (0.000-0.034) ng/mL 05/05/21 05/05/21 05/05/21 Range/Units 06:47 11:29 16:47 WBC (3.8-10.6) k/uL Sodium (137-145) mmol/L BUN (7-17) mg/dL Glucose (74-99) mg/dL POC Glucose (mg/dL) 128 H 261 H 181 H (75-99) mg/dL AST (14-36) U/L ALT (4-34) U/L Troponin I (0.000-0.034) ng/mL H & H 05/04/21 05/05/21 05/05/21 Range/Units 15:59 01:15 05:28 Hgb 13.0 12.8 12.5 (11.4-16.0) gm/dL Hct 39.1 38.4 37.7 (34.0-46.0) % Coagulation 05/04/21 05/05/21 05/05/21 Range/Units 15:59 01:15 05:28 INR 1.0 1.0 1.0 (<1.2) Result Diagrams: 05/05/21 05:28 05/05/21 01:15 - Diagnostic results Shoulder x-ray: report reviewed, image reviewed (Right shoulder x-rays were reviewed. No obvious acute fractures or dislocations. 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 Riojas. No emergent orthopedic surgical intervention recommended at this time. Discussed with patient treatment options at this time, I would recommend use of Tylenol for pain control or a low-dose narcotic. Avoid anti-inflammatories due to the recent cardiac procedure. Can also utilize ice to the right shoulder. Recommend gentle range of motion exercises of both the shoulder, elbow and hand and wrist. Avoid heavy lifting at this time Will follow patient during inpatient stay Time with Patient: Less than 30
[2021-05-05 19:52] LABS: Glucose,Whole Blood 255 mg/dL (75-99)
[2021-05-05] MEDS: ATORVASTATIN 80 MG TAB PO SCH (20:03)
[2021-05-06] MEDS: ACETAMINOPHEN TAB 500 MG TAB PO SCH ×3 (00:09→16:35)
[2021-05-06 06:26] LABS: Basophils # (A) 0.1 k/uL (0-0.2); Basophils % (A) 1 %; Eosinophils # (A) 0.4 k/uL (0-0.7); Eosinophils % (A) 4 %; HGB 12.2 gm/dL (11.4-16.0); Lymphocytes # (A) 1.2 k/uL (1.0-4.8); Lymphocytes % (A) 13 %; MCH 30.1 pg (25.0-35.0); MCHC 33.1 g/dL (31.0-37.0); Mean Platelet Volume 7.2; Monocytes # (A) 0.5 k/uL (0-1.0); Monocytes % (A) 6 %; Neutrophils % (A) 75 %; Platelet Count 182 k/uL (150-450); RBC 4.07 m/uL (3.80-5.40); RDW 14.3 % (11.5-15.5); WBC 9.3 k/uL (3.8-10.6)
[2021-05-06 06:32] LABS: Glucose,Whole Blood 230 mg/dL (75-99)
[2021-05-06 06:33] LABS: Glucose,Whole Blood 225 mg/dL (75-99)
[2021-05-06] MEDS: INSULIN ASPART (NovoLOG) 100 UNIT/ML VIAL SQ SCH ×7 (06:35→20:44)
[2021-05-06 06:37] LABS: Calcium 9.2 mg/dL (8.4-10.2); Potassium 3.7 mmol/L (3.5-5.1)
[2021-05-06] MEDS ORDERED: Potassium Replacement Protocol 1 EACH MISC MISCELLANE PRN (07:46)
--- NOTE | 2021-05-06 07:56 | P.PN ---
Subjective Progress Note Date: 05/06/21 Principal diagnosis: Acute coronary syndrome The patient is a pleasant 76-year-old female patient with a past medical history significant for diabetes and hypertension and dyslipidemia who presented to the hospital complaining of chest discomfort. She continues to have ongoing chest discomfort. For that reason emergent heart catheterization was advised. The patient underwent a heart catheterization and during the procedure he had some ST changes just before we started the procedure consistent with ST segment elevation SD. She underwent an emergent heart catheterization and that revealed occluded LAD in the ostium and severe disease involving the LCx as well as intermediate to severe disease involving the RCA. The patient underwent successful stenting of the LAD with a good angiographic results and without any complication. The patient was seen this morning. Her right arm pain/weakness has improved significantly. Neurology service seen the patient yesterday and the plan is to repeat the computed tomography scan today to rule out any ischemic stroke. If the computed tomography scan did not show any evidence of ischemic stroke we are going to take the patient to the lab coordinator to perform PCI of the left circumflex a potentially the RCA. Meanwhile she denies any symptoms of chest pain or chest discomfort or shortness of breath. She has been maintaining normal sinus mechanism. Vitals overall stable. She is on dual antiplatelet therapy as well as high intensity statin. She is also in process of having carotid duplex study. The echo revealed mildly impaired LV function with EF between 45-50% with wall motion abnormalities anteriorly. Objective - Vital Signs Vital signs: Vital Signs Temp 98 F 05/06/21 04:00 Pulse 71 05/06/21 07:00 Resp 20 05/06/21 07:00 BP 144/80 05/06/21 07:00 Pulse Ox 95 05/06/21 07:00 Intake & Output 05/05/21 05/06/21 05/06/21 18:59 06:59 18:59 Intake Total 450 0 Output Total 1700 300 Balance -1250 -300 Weight 69.899 kg Intake: Oral 450 0 Output: Urine 1700 300 Other: Voiding Method Toilet Bedside Commode # Voids 0 - Constitutional General appearance: Present: no acute distress - Respiratory Respiratory: bilateral: CTA - Cardiovascular Rhythm: regular Heart sounds: normal: S1, S2 - Labs CBC & Chem 7: 05/06/21 05:49 05/06/21 05:49 Labs: Abnormal Lab Results - Last 24 Hours (Table) 05/05/21 05/05/21 05/05/21 Range/Units 05:28 11:29 16:47 WBC 12.3 H (3.8-10.6) k/uL BUN (7-17) mg/dL Glucose (74-99) mg/dL POC Glucose (mg/dL) 261 H 181 H (75-99) mg/dL 05/05/21 05/06/21 05/06/21 Range/Units 19:51 05:49 06:31 WBC (3.8-10.6) k/uL BUN 24 H (7-17) mg/dL Glucose 211 H (74-99) mg/dL POC Glucose (mg/dL) 255 H 230 H (75-99) mg/dL 05/06/21 Range/Units 06:32 WBC (3.8-10.6) k/uL BUN (7-17) mg/dL Glucose (74-99) mg/dL POC Glucose (mg/dL) 225 H (75-99) mg/dL Assessment and Plan Assessment: Assessment #1 acute non-ST elevation myocardial infarction #2 critical disease involving the ostial LAD. #3 successful stenting of the LAD #4 right side pain/weakness #5 multiple comorbid conditions Plan #1 rule out ischemic stroke. Neurology service is on the case. The patient is in process of having the computed tomography scan to be repeated #2 continue dual antiplatelet therapy #3 continue high intensity statin #4 DC Lasix IV #5 follow-up with the patient #6 possible PCI of the LCx later on today
[2021-05-06] MEDS ORDERED: POTASSIUM CHLORIDE ER 20 MEQ TAB.ER PO SCH (08:00)
--- NOTE | 2021-05-06 08:39 | CONS ---
CONSULTATION DATE OF CONSULTATION: 05/05/2021 REASON FOR CONSULTATION: Severe nosebleed. HISTORY OF PRESENT ILLNESS: This patient is a pleasant 76-year-old female who was admitted to [facility] via the emergency room for further evaluation of chest pain. After initial evaluation by the ER physician, it was determined that the patient should undergo a cardiac catheterization, and eventually she had a stent inserted. Post procedure she was placed on a blood thinner and also on aspirin. After returning to her ICU room, she subsequently developed a severe right-sided nosebleed. I was consulted in my office.At that time informed the nurses that because I had an office full of patients and I recommended that they call the A-Team to insert balloon nasal packing. I would come over to see the patient after finishing my morning patients. This was done and the Rhino-rocket nasal balloon packing controlled the bleeding. The patient states that she has a history of nosebleeds in the past. She is a non smoker in the past and is not around secondhand smoke. At the time that I saw her in her room she was not actively bleeding and was in no acute distress. PAST MEDICAL HISTORY: The patient states that she is a nonsmoker. ALLERGIES: VASOTEC. CURRENT HOME MEDICATIONS: Her current medications at home include Lipitor, Amaryl, Dyazide, amlodipine and metformin and a baby aspirin. REVIEW OF SYSTEMS: Review of systems reveals a history of hypertension and ASHD. Metabolic/endocrine system is positive for hypercholesterolemia and type-2 diabetes mellitus. The remainder of the review of systems is unremarkable. PHYSICAL EXAMINATION: The patient is normocephalic. Tympanic membranes are normal. Middle ear space is free of any fluid or infection. Pupils equal, round and reactive to light and accommodation. Intranasal examination reveals an intact packing in the right side of the nose with no evidence of any active bleeding. Examination of the left naris reveals no evidence any bleeding on the left side. Examination of the oropharynx reveals no bleeding down the posterior pharyngeal wall. Cranial nerves 2 through 12 and the remainder of the head and neck exam all unremarkable and within normal limits. Chest/cardiovascular: Lung goodrich are clear. Patient is in regular sinus rhythm. S1 and S2 are present without any murmurs. ABDOMEN: There is no evidence any masses, megaly or tenderness. The abdomen is soft. Skin is unremarkable. The remainder of physical exam is unremarkable. ASSESSMENT: Right anterior-posterior epistaxis. PLAN: As of now, I will leave the balloon in the patient's right nares. It is inflated with approximately 1 or 2 mL of air. I have instructed nurses that if the patient should start bleeding significantly, they can instill up to another 5 to 10 mL of saline as opposed to air in both balloons. I further secured the balloon to the patient's face using Mastisol. The bleeding in this patient is from the right side. It is not unusual that if bleeding is severe enough it will go around the posterior aspect of the septum and come out of the opposite side of the nose. I also advised the nurses that if the patient starts to bleed again to make sure that her blood pressure is not slightly elevated. I understand the patient may undergo another heart procedure tomorrow, which means they may continue with the anticoagulants for safety's sake. Unfortunately' it is extremely difficult to stop nasal bleeding as long as the patient is on an anticoagulant. Certainly there is no way to cauterize this patient's nose, and even if that was done the patient might continue still bleed. I secured from the postoperative surgery department a kit for a facial tent, including the hose and the humidifier bottle and a facial tent. It is better to use the facial tent which rests just below the chin and avoid using any type of facial mask that rest on the nose of this patient. If the patient does not have any further bleeding, then on Sunday I might deflate the Rhino-Rocket nasal balloons but leave them in place. By doing so, this allows the nurses to reinflate the balloons if any bleeding occurs. If she continues to not bleed after another 24 hours, then on Sunday or Sunday I would most likely consider removing the nasal packing and start other measures to decrease the chances of further bleeding. However, unfortunately in these patients who have very arthrosclerotic blood vessels intranasally and who are on blood thinners, nasal bleeding is always worrisome. I will continue to follow this patient with you. I want to take this opportunity for allowing me to assist in the care of your patient. If I can be of any further assistance, please feel free to call my office. Sincerely, Dr. Edgar ANTONY / SHEAN: [phone] / [facility]ITALAn[facility]
[2021-05-06] MEDS: AMLODIPINE BESYLATE PO SCH (08:43)
[2021-05-06] MEDS: CHOLECALCIFEROL 25 MCG (1000 IU) TABLET PO SCH (08:43)
[2021-05-06] MEDS: BENAZEPRIL PO SCH (08:43)
[2021-05-06] MEDS: DICLOFENAC SODIUM GEL 100 GM TUBE TOPICAL SCH ×4 (08:45→21:39)
[2021-05-06] MEDS: GLIMEPIRIDE 4 MG TAB PO SCH (08:48)
--- NOTE | 2021-05-06 09:07 | CT ---
EXAMINATION TYPE: CT brain wo con DATE OF EXAM: 05/06/2021 COMPARISON: 05/05/2021 HISTORY: 76-year-old female Code stroke follow up TECHNIQUE: Examination was done in axial plane without intravenous contrast. Coronal and sagittal r econstructions performed. CT DLP: 1048.4 mGycm Automated exposure control for dose reduction was used. FINDINGS: There is no evidence of acute intracranial hemorrhage, acute ischemic changes, mass, mass-effect, or extra-axial fluid collection. There is no effacement of cerebral sulci or basal subarachnoid cister ns. There is no hydrocephalus. There is no midline shift. Cyr-white matter distinction is preserv ed. Moderate mucosal thickening right ethmoid air cells and new layering fluid in the right maxillary sin us. Orbits and globes appear intact. IMPRESSION: No acute intracranial abnormality seen. No evolving large vascular territory infarct identified.
--- NOTE | 2021-05-06 10:48 | P.PN ---
Subjective Progress Note Date: 05/06/21 The patient is seen at bedside and she is feeling drastically better today compared to yesterday. She stated her right shoulder pain is much better and has more strength today. Denies of any new neurological problems. Objective - Vital Signs Vital signs: Vital Signs Temp 98 F 05/06/21 04:00 Pulse 76 05/06/21 09:00 Resp 20 05/06/21 09:00 BP 144/81 05/06/21 09:00 Pulse Ox 94 L 05/06/21 09:00 Intake & Output 05/05/21 05/06/21 05/06/21 18:59 06:59 18:59 Intake Total 450 0 Output Total 1700 300 350 Balance -1250 -300 -350 Weight 69.899 kg Intake: Oral 450 0 Output: Urine 1700 300 350 Other: Voiding Method Toilet Bedside Commode # Voids 0 - Exam GENERAL: The patient is sitting in a recliner chair and is not in acute distress. ENT: No visible epistaxis currently. NEUROLOGICAL: Higher mental function: The patient is awake, alert, oriented to self, place and time. Patient is following commands. No aphasia and no neglect. Cranial nerves: The pupils are round, equal and reactive to light. Visual goodrich are full to confrontation throughout. Extraocular movement is intact no nystagmus is noted. Facial sensation is normal to touch throughout. The facial strength is normal throughout. . No dysarthria is noted. Has antigravity for both shoulder and on left 5/5 while right somewhat limited to pain but drastically better compared to yesterday. Motor: Gait is deferred. The strength is right upper extremity is somewhat limited because of some pain but is lifting above gravity and distal is 5/5. Otherwise 5/5 throughout. Normal tone and bulk. Cerebellum: Normal finger to nose bilaterally. Sensation: Sensation is normal to touch throughout. Reflexes (right/left): 2+ over the right upper. WORK-UP: CT of the head is reported as negative unenhanced head CT scan. I personally reviewed the CT of the head there is no acute or subacute ischemia. Repeat CT head: No acute intracranial abnormality seen. No evolving large vascular terriotry infarct identified. I personally reviewed the CT of the head and I agree there is no acute subacute ischemia or intraparenchymal hemorrhage is appreciated. Right shoulder x-rays report as there is no acute fracture or dislocation. 2-D echo was reported as moderate concentric left ventricular hypertrophy. Ejection fraction of 45-50%. Apical left ventricle wall motion is hypokinetic and different regions in the anterior inferior septum. Normal left atrial size by volume. - Labs CBC & Chem 7: 05/06/21 05:49 05/06/21 05:49 Labs: Abnormal Lab Results - Last 24 Hours (Table) 05/05/21 05/05/21 05/05/21 Range/Units 05:28 11:29 16:47 WBC 12.3 H (3.8-10.6) k/uL BUN (7-17) mg/dL Glucose (74-99) mg/dL POC Glucose (mg/dL) 261 H 181 H (75-99) mg/dL 05/05/21 05/06/21 05/06/21 Range/Units 19:51 05:49 06:31 WBC (3.8-10.6) k/uL BUN 24 H (7-17) mg/dL Glucose 211 H (74-99) mg/dL POC Glucose (mg/dL) 255 H 230 H (75-99) mg/dL 05/06/21 Range/Units 06:32 WBC (3.8-10.6) k/uL BUN (7-17) mg/dL Glucose (74-99) mg/dL POC Glucose (mg/dL) 225 H (75-99) mg/dL Assessment and Plan Assessment: * Right upper extremity weakness seems due to right shoulder pain. On today's examination her right shoulder pain is better and her strength is improved compared to yesterday but continues to have some shoulder pain. It seems unlikely stroke or TIA and possibly as result of position of shoulder during surgery (cardiac stent). Had two CT's head and both are unremarakble. * Epistaxis---controlled. * Acute non-ST elevation myocardial infarction * Coronary artery disease status post stenting of LAD on 05/04/2021 * Diabetes mellitus * Hypertension * Dyslipidemia Plan: Had two CT head and are negative. Patient is on aspirin 81 mg as well as a Brilinta 90mg one tablet twice a day as well as a statin 80 mg daily at bedtime per cardiology recommendation. ENT is on board. If she continues to have shoulder pain and weakness, possible consider EMG with NCS of right upper extremity as outpatient. Continue neuro checks Consulted PT and OT. Continue cardiac monitoring We'll defer the rest of the medical management to the cardiology team and the primary team. The plan is discussed with patient and her nurse. Neurology will sign off. There is no further neurological work-up. Please notify neurology if any further concerns. David Monroy M.D. Neuro-Hospitalist Time with Patient: Less than 30
[2021-05-06] MEDS ORDERED: HEPARIN SODIUM 1,000 UN/ML (10ML VL) ONE (10:56)
[2021-05-06] MEDS ORDERED: VERAPAMIL 2.5 MG/ML 2 ML AMP ONE (10:56)
[2021-05-06] MEDS ORDERED: niCARdipine 25 MG/10 ML VIAL ONE (10:57)
[2021-05-06] MEDS ORDERED: LIDOCAINE 1% INJ 10MG/ML (20 ML MDV) ONE (10:57)
[2021-05-06] MEDS: ASPIRIN 81 MG PO SCH (10:58)
[2021-05-06] MEDS: TICAGRELOR 90 MG TAB PO SCH ×2 (10:58→20:45)
[2021-05-06] MEDS ORDERED: IV FLUID CONTINUATION 650 ML IV ONE (11:17)
[2021-05-06] MEDS ORDERED: MIDAZOLAM 2 MG/2 ML VIAL IVP ONE ×2 (11:23→13:00)
[2021-05-06] MEDS ORDERED: LIDOCAINE 1% INJ 10MG/ML (20 ML MDV) SQ ONE (11:27)
[2021-05-06] MEDS: HEPARIN SODIUM 1,000 UN/ML (10ML VL) IVP ONE ×3 (11:31→12:39)
[2021-05-06] MEDS ORDERED: fentaNYL (PF) 50 MCG/ML 2 ML AMP ONE (11:36)
[2021-05-06] MEDS ORDERED: fentaNYL (PF) 50 MCG/ML 2 ML AMP IVP ONE (11:37)
--- NOTE | 2021-05-06 11:45 | P.PN ---
Subjective Progress Note Date: 05/06/21 Principal diagnosis: Right shoulder pain Patient was seen at bedside this morning resting comfortable sitting up in chair. Patient says her right shoulder and right arm are doing much better than they were yesterday. Patient says she has regained full motion in her right elbow. Patient states she still is having some pain in the right shoulder, however, patient describes it is minimal at this time. She feels much has resolved over the past 24 hours. Patient does feel that she is regaining some of the strength in her right shoulder. Patient denies chest pain, fever, sh ortness of breath, nausea, vomiting, change in vision, loss of bowel/bladder control Objective - Vital Signs Vital signs: Vital Signs Temp 98 F 05/06/21 04:00 Pulse 76 05/06/21 11:00 Resp 21 05/06/21 11:00 BP 141/65 05/06/21 11:00 Pulse Ox 96 05/06/21 11:00 Intake & Output 05/05/21 05/06/21 05/06/21 18:59 06:59 18:59 Intake Total 450 0 Output Total 1700 300 600 Balance -1250 -300 -600 Weight 69.899 kg Intake: Oral 450 0 Output: Urine 1700 300 600 Other: Voiding Method Toilet Bedside Commode # Voids 0 - Exam Right shoulder: Negative for any open fractures, ecchymosis, erythema, nodules. Sensation is equal, symmetric, bilaterally intact throughout the upper extremities. There is some minimal tenderness to palpation along the proximal humerus and glenohumeral joint. Negative for any tenderness to palpation over the right clavicle/AC joint. Nontender to palpation throughout rest of exam. Patient has full range of motion in flexion/extension of right elbow as well as right wrist. Patient does have some limited range of motion of the right shoulder due to pain. 3+/5 in resisted right shoulder abduction, external/internal rotation and forward elevation. 4+/5 in all other major motor groups. Negative Homans bilaterally. Radial pulses intact, 2+ bilaterally. Cap refill under 3 seconds bilaterally in digits in upper extremities - Labs CBC & Chem 7: 05/06/21 05:49 05/06/21 05:49 Labs: Abnormal Lab Results - Last 24 Hours (Table) 05/05/21 05/05/21 05/06/21 Range/Units 16:47 19:51 05:49 BUN 24 H (7-17) mg/dL Glucose 211 H (74-99) mg/dL POC Glucose (mg/dL) 181 H 255 H (75-99) mg/dL 05/06/21 05/06/21 Range/Units 06:31 06:32 BUN (7-17) mg/dL Glucose (74-99) mg/dL POC Glucose (mg/dL) 230 H 225 H (75-99) mg/dL Assessment and Plan Assessment: 1. Right shoulder pain Plan: 1. Right shoulder pain - patient stable at bedside this morning. At this time we do not recommend any emergent/urgent orthopedic surgical intervention. From an orthopedic standpoint, patient is stable for discharge home. At this time orthopedics is signing off. Please do not hesitate to contact us for any further questions. 2. Appreciate medical/cardiac/neuro management 3. Pain management - Tylenol 4. DVT prophylaxis - aspirin 5. GI prophylaxis 6. PT/OT - patient is encouraged to move right shoulder as well as right elbow. Limit heavy lifting at this time Time with Patient: Less than 30
[2021-05-06] MEDS ORDERED: IOPAMIDOL-370 125ML BTL INJ ONE (12:39)
[2021-05-06] MEDS ORDERED: NITROGLYCERIN 1000MCG/10ML SYRINGE INTRACORON ONE (13:08)
[2021-05-06] MEDS ORDERED: niCARdipine Syringe (1,000 mcg/10 mL) INTRACORON ONE (13:08)
[2021-05-06] MEDS ORDERED: IOPAMIDOL-370 100ML BTL INJ ONE (13:19)
--- NOTE | 2021-05-06 14:32 | P.PN ---
Subjective Progress Note Date: 05/06/21 HISTORY OF PRESENT ILLNESS This is a 76-year-old female patient of Dr. Villatoro with a past medical history significant for diabetes mellitus type II, hypertension, hyperlipidemia, kidney tumor with scheduled surgery with Dr. Del Cid in the near future, presented to the emergency department complaining of chest discomfort in the middle on her chest without radiation. EKG was a sinus rhythm with PVCs and nonspecific ST-T wave changes. Patient also had shortness of breath. Patient was given nitroglycerin with improvement. She had continued chest pain and was taken emergently to the phlebotomy lab assistant revealed calcified right and left coronary system with critical disease involving the ostial LAD from the left main as well as intermediate disease involving the left circumflex and severe focal eccentric lesion involving the RCA. Also she was found to have extremely elevated left-s ided filling pressure. Subsequently the patient underwent successful PCI of the LAD with an excellent angiographic results with restoring KAVITHA-3 flow to the LAD and without any complication from right radial approach. Patient was started on Brilinta, aspirin 81 mg daily, Lipitor is at 80 mg at bedtime. Patient developed nosebleed this morning that lasted for 3 hours and nose clip was placed on the right side and consult was added for Dr. Urrutia who will see the patient this afternoon. Patient also developed right arm shoulder pain unable to lift her right arm and consult was added for neurology. This appears to be musculoskeletal and consult added for orthopedics and x-ray of the right shoulder. Arterial ultrasound of the right upper extremity showed arterial flow demonstrated in the carotid and axillary brachial arteries. Normal waveforms are seen. No evidence of thrombosis. No evidence of pseudoaneurysm. Venous ultrasound was negative for DVT. CAT scan of the brain was negative. Chest x-ray shows no acute process. 05/06: Patient remains in the intensive care unit. Patient returned to the phlebotomy lab assistant today and underwent stent of circumflex. The RCA will be addressed at a later time. IV Lasix discontinued by cardiology. Signing the echo CAT scan of the brain showed no acute intracranial abnormality done on 05/06. Neurology has recommended no further workup. Patient has been seen by orthopedics with no plan for any intervention at this point. Patient states her pain is improved with Voltaren gel. Echocardiogram reveals EF of 45-50% with moderate concentric left ventricle hypertrophy, mild aortic stenosis, trace to mild mitral regurgitation, mild tricuspid regurgitation. X-ray of the right shoulder showed no acute fracture or dislocation. REVIEW OF SYSTEMS Constitutional: No fever, no chills, no night sweats. No weight change. No weakness, fatigue or lethargy. No daytime sleepiness. EENT: Reports headache. No blurred vision or double vision, no loss of vision. No loss of Hearing, no ringing in the ears, no dizziness. No nasal drainage or congestion. + epistaxis. No sore throat. Lungs: No shortness of breath, cough, no sputum production. No wheezing. Cardiovascular: No chest pain, no lower extremity edema. No palpitations. No paroxysmal nocturnal dyspnea. No orthopnea. No lightheadedness or dizziness. No syncopal episodes. Abdominal: No abdominal pain. No nausea, vomiting. No diarrhea. No constipation. No bloody or tarry stools. No loss of appetite. Genitourinary: No dysuria, increased frequency, urgency. No urinary retention. Musculoskeletal: No myalgias. No muscle weakness, no gait dysfunction, no frequent falls. No back pain. No neck pain. Right shoulder pain, decreased range of motion Integumentary: No wounds, no lesions. No rash or pruritus. No unusual bruising. Neurologic: No aphasia. No facial droop. No change in mentation. No head injury. No headache. No paralysis. No paresthesia. Psychiatric: No depression. No anxiety. No mood swings. Endocrine: No abnormal blood sugars. No weight change. No excessive sweating or thirst. No cold intolerance. PHYSICAL EXAMINATION Gen: This is a 76-year-old female. Patient is sitting up in a r ecliner in the ICU and appears to be comfortable. HEENT: Head is atraumatic, normocephalic. Pupils equal, round. Sclerae is anicteric. Nose clip in the right nares. No active bleeding. NECK: Supple. No JVD. No lymphadenopathy. No thyromegaly. LUNGS: Clear to auscultation. No wheezes or rhonchi. No intercostal retractions. HEART: Regular rate and rhythm. Systolic murmur. ABDOMEN: Soft. Bowel sounds are present. No masses. No tenderness. EXTREMITIES: No pedal edema. No calf tenderness. NEUROLOGICAL: Patient is awake, alert and oriented x3. Cranial nerves 2 through 12 are grossly intact. ASSESSMENT AND PLAN 1. Acute non-ST elevated myocardial infarction status post PCI of the LAD and circumflex. Lesion in the right coronary artery to be addressed at a later time. Continue aspirin 81 mg daily, Lipitor 80 mg daily, Brilinta 90 mg twice daily. Echocardiogram as above 2. Diabetes mellitus type 2 uncontrolled with hyperglycemia. Patient started on NovoLog scale before meals and at bedtime continue glimepiride 4 mg daily, hold metformin 1000 mg twice daily. Patient started on Levemir 10 units at bedtime, NovoLog 5 units 3 times daily. 3. Hypertension. Continue Norvasc 10 mg daily. 4. Hyperlipidemia. Continue atorvastatin. 5. Kidney tumor, possibly malignant. Patient is scheduled for surgery with Dr. Del Cid in the near future which most likely will need to be postponed. 6. Epistaxis. Consult with ENT. 7. Right shoulder pain and decreased range of motion most likely secondary to positioning during cardiac catheterization. Consult with orthopedics appreciated. 8. Right upper extremity weakness. Neurology consult appreciated. Ultrasound venous and arterial are negative. 9. GI prophylaxis. Protonix. DISCHARGE PLAN Home. Impression and plan of care have been directed as dictated by the signing physician. Alanna Sandoval nurse practitioner acting as scribe for signing physician. Objective - Vital Signs Vital signs: Vital Signs Temp 98 F 05/06/21 04:00 Pulse 76 05/06/21 11:00 Resp 21 05/06/21 11:00 BP 141/65 05/06/21 11:00 Pulse Ox 96 05/06/21 11:00 Intake & Output 05/05/21 05/06/21 05/06/21 18:59 06:59 18:59 Intake Total 450 0 200 Output Total 1700 300 600 Balance -1250 -300 -400 Weight 69.899 kg Intake: IV 200 Oral 450 0 Output: Urine 1700 300 600 Other: Voiding Method Toilet Bedside Commode # Voids 0 - Labs CBC & Chem 7: 05/06/21 05:49 05/06/21 05:49 Labs: Abnormal Lab Results - Last 24 Hours (Table) 05/05/21 05/05/21 05/06/21 Range/Units 16:47 19:51 05:49 BUN 24 H (7-17) mg/dL Glucose 211 H (74-99) mg/dL POC Glucose (mg/dL) 181 H 255 H (75-99) mg/dL 05/06/21 05/06/21 Range/Units 06:31 06:32 BUN (7-17) mg/dL Glucose (74-99) mg/dL POC Glucose (mg/dL) 230 H 225 H (75-99) mg/dL
[2021-05-06 18:24] LABS: Glucose,Whole Blood 334 mg/dL (75-99)
[2021-05-06 20:26] LABS: Glucose,Whole Blood 386 mg/dL (75-99)
[2021-05-06] MEDS: ATORVASTATIN 80 MG TAB PO SCH (20:45)
[2021-05-06] MEDS ORDERED: INSULIN DETEMIR (LEVEMIR) 100 UNIT/ML SYR SQ SCH (21:00)
[2021-05-06 21:32] LABS: Glucose,Whole Blood 334 mg/dL (75-99)
--- NOTE | 2021-05-06 21:48 | P.PCN ---
Date of Procedure: 05/06/21 Operative Findings: PERCUTANEOUS CORONARY INTERVENTION PERFORMING PHYSICIAN: Roldan Nieto MD, RPVI PROCEDURE PERFORMED: 1. Successful stenting a very complex proximal LCX using 3.0 x 15 mm Xience CRYSTAL which with an excellent angiographic results 2. PTCA of the LAD and LCX in a kissing technique 3. Attempted atherectomy of the LCX 4. selective right PIANO TECHNICIAN angiogram INDICATION: This is a 76-year-old female patient with diabetes and hypertension was admitted to the hospital with ACS two days ago and underwent a cath and PCI of the LAD which was the culprit. She was found to have severe dx in the LCX. COMPLICATION: None APPROACH: Right common femoral artery LEVEL OF SEDATION: Moderate with the sedation time of 110 minutes PROCEDURE DESCRIPTION: After obtaining an informed consent the patient was brought to the cardiac laborer car barn. The right common femoral artery artery was cannulated using micropuncture technique, the micropuncture wire passed easily then I placed a 6-Spanish sheath. Anticoagulation was heparin was initiated and continuous ACT monitoring was performed throughout the procedure I did select the LM using extra back up support guide. I wire the LCX using a run through wire. I did exchange the run through wire into viber wire using micocatheter. Attempting advancing the atherectomy catheter was unsuccessful because the cathereter will not cross the the LCX from the LM. Now I advanced 2,0 mm balloon and did PTCA of the proximal LCX, Advancing Xience CRYSTAL was again unsuccessful. I tried Elieser and that also was unsuccessful. I tried a burt wire with BMW, and also I tried using a guideliner, and I was unable to advance the Xience nor the Elieser, AT that point I exchanged one of the wires to a mail man and with that I was able to deliver the Xience stent to the LCX where the stent was deployed successfully. Please note during the procedure, I had a to do kissing balloon of the ostial LAD and LCx, because of the ostial LAD stent was pinching on the ostial LCX The procedure was completed without any complication POSTPROCEDURE MANAGEMENT: #1 dual antiplatelet therapy #2 aggressive cholesterol control #3 follow-up with the patient Additional CC's: Haritha Villatoro
[2021-05-07] MEDS: ACETAMINOPHEN TAB 500 MG TAB PO SCH (02:15)
--- NOTE | 2021-05-07 05:46 | P.PN ---
Subjective HISTORY OF PRESENTING ILLNESS The patient is a pleasant 76-year-old female patient with a past medical history significant for diabetes and hypertension and dyslipidemia who presented to the hospital complaining of chest discomfort. She continues to have ongoing chest discomfort. For that reason emergent heart catheterization was advised. The patient underwent a heart catheterization and during the procedure he had some ST changes just before we started the procedure consistent with ST segment elevation NE. She underwent an emergent heart catheterization and that revealed occluded LAD in the ostium and severe disease involving the LCx as well as intermediate to severe disease involving the RCA. The patient underwent successful stenting of the LAD with a good angiographic results and without any complication. The patient was seen this morning. Her right arm pain/weakness has improved significantly. Neurology service seen the patient yesterday and the plan is to repeat the computed tomography scan today to rule out any ischemic stroke. If the computed tomography scan did not show any evidence of ischemic stroke we are going to take the patient to the laborer tree tapping to perform PCI of the left circumflex a potentially the RCA. Meanwhile she denies any symptoms of chest pain or chest discomfort or shortness of breath. She has been maintaining normal sinus mechanism. Vitals overall stable. She is on dual antiplatelet therapy as well as high intensity statin. She is also in process of having carotid duplex study. The echo revealed mildly impaired LV function with EF between 45-50% with wall motion abnormalities anteriorly. 05/07 seen and examined. Patient underwent successful stenting of the circumflex from the right femoral approach. She did have bleeding from her nose and has a packing in her right naris. She denies any chest pain or pressure. No shortness breath. She states she has been tolerating diet. Right femoral site appears stable with no hematoma. She apparently has been refusing her in sulin with sugars elevated in the 300s. PHYSICAL EXAMINATION Vital signs reviewed. CONSTITUTIONAL: No apparent distress. HEENT: Head is normocephalic. Pupils are equal, round. Sclerae anicteric. Mucous membranes of the mouth are moist. No JVD. No carotid bruit. CHEST EXAMINATION: Lungs are clear to auscultation. No chest wall tenderness is noted on palpation or with deep breathing. HEART EXAMINATION: Regular rate and rhythm. S1, S2 heard. No murmurs, gallops or rub. ABDOMEN: Soft, nontender. Positive bowel sounds. EXTREMITIES: 2+ peripheral pulses, no lower extremity edema and no calf tend erness. NEUROLOGIC EXAMINATION: Patient is awake, alert and oriented x3. Assessment #1 acute non-ST elevation myocardial infarction #2 critical disease involving the ostial LAD. #3 successful stenting of the LAD, staged PCI circumflex #4 right side pain/weakness, improved #5 multiple comorbid conditions #6 Epistaxis Plan Neurologically patient appears improved. She is status post successful stenting of the LAD and circumflex. Right femoral site appears stable. Continue dual antiplatelets and current regimen. Hopeful discharge in the next 24 hours however monitor her nosebleed, do not stop dual antiplatelets. Objective - Vital Signs Vital signs: Vital Signs Temp 98.3 F 05/07/21 00:00 Pulse 70 05/07/21 03:00 Resp 21 05/07/21 03:00 BP 140/69 05/07/21 03:00 Pulse Ox 95 05/07/21 03:00 Intake & Output 05/06/21 05/06/21 05/07/21 06:59 18:59 06:59 Intake Total 0 500 555 Output Total 517 767 3039 Balance -300 -100 -545 Weight 69.899 kg Intake: IV 500 75 Normal Saline 150 75 Sodium Chloride 0.9% 1, 150 000 ml In Empty Bag 1 bag @ 75 mls/hr IV .[id number] JANETTE Rx#:[id number] Oral 0 480 Output: Urine [id number] Other: # Voids 0 0 - Labs CBC & Chem 7: 05/06/21 05:49 05/06/21 05:49 Labs: Abnormal Lab Results - Last 24 Hours (Table) 05/06/21 05/06/21 05/06/21 Range/Units 05:49 06:31 06:32 BUN 24 H (7-17) mg/dL Glucose 211 H (74-99) mg/dL POC Glucose (mg/dL) 230 H 225 H (75-99) mg/dL 05/06/21 05/06/21 05/06/21 Range/Units 18:23 20:25 21:31 BUN (7-17) mg/dL Glucose (74-99) mg/dL POC Glucose (mg/dL) 334 H 386 H 334 H (75-99) mg/dL
[2021-05-07 06:53] LABS: Glucose,Whole Blood 134 mg/dL (75-99)
[2021-05-07] MEDS: INSULIN ASPART (NovoLOG) 100 UNIT/ML VIAL SQ SCH ×5 (06:58→20:31)
[2021-05-07] MEDS: TICAGRELOR 90 MG TAB PO SCH ×2 (08:49→20:28)
[2021-05-07] MEDS: CHOLECALCIFEROL 25 MCG (1000 IU) TABLET PO SCH (08:49)
[2021-05-07] MEDS: ASPIRIN 81 MG PO SCH (08:49)
[2021-05-07] MEDS: GLIMEPIRIDE 4 MG TAB PO SCH (08:49)
[2021-05-07] MEDS: INSULIN DETEMIR (LEVEMIR) 100 UNIT/ML SYR SQ SCH ×3 (08:50→20:35)
[2021-05-07] MEDS: DICLOFENAC SODIUM GEL 100 GM TUBE TOPICAL SCH ×4 (08:53→20:34)
[2021-05-07] MEDS: BENAZEPRIL PO SCH (10:03)
[2021-05-07] MEDS: AMLODIPINE BESYLATE PO SCH (10:03)
--- NOTE | 2021-05-07 10:44 | P.PN ---
Subjective Progress Note Date: 05/07/21 HISTORY OF PRESENT ILLNESS This is a 76-year-old female patient of Dr. Villatoro with a past medical history significant for diabetes mellitus type II, hypertension, hyperlipidemia, kidney tumor with scheduled surgery with Dr. Del Cid in the near future, presented to the emergency department complaining of chest discomfort in the middle on her chest without radiation. EKG was a sinus rhythm with PVCs and nonspecific ST-T wave changes. Patient also had shortness of breath. Patient was given nitroglycerin with improvement. She had continued chest pain and was taken emergently to the greenhouse laborer revealed calcified right and left coronary system with critical disease involving the ostial LAD from the left main as well as intermediate disease involving the left circumflex and severe focal eccentric lesion involving the RCA. Also she was found to have extremely elevated left-s ided filling pressure. Subsequently the patient underwent successful PCI of the LAD with an excellent angiographic results with restoring KAVITHA-3 flow to the LAD and without any complication from right radial approach. Patient was started on Brilinta, aspirin 81 mg daily, Lipitor is at 80 mg at bedtime. Patient developed nosebleed this morning that lasted for 3 hours and nose clip was placed on the right side and consult was added for Dr. Urrutia who will see the patient this afternoon. Patient also developed right arm shoulder pain unable to lift her right arm and consult was added for neurology. This appears to be musculoskeletal and consult added for orthopedics and x-ray of the right shoulder. Arterial ultrasound of the right upper extremity showed arterial flow demonstrated in the carotid and axillary brachial arteries. Normal waveforms are seen. No evidence of thrombosis. No evidence of pseudoaneurysm. Venous ultrasound was negative for DVT. CAT scan of the brain was negative. Chest x-ray shows no acute process. 05/06: Patient remains in the intensive care unit. Patient returned to the greenhouse laborer today and underwent stent of circumflex. The RCA will be addressed at a later time. IV Lasix discontinued by cardiology. Signing the echo CAT scan of the brain showed no acute intracranial abnormality done on 05/06. Neurology has recommended no further workup. Patient has been seen by orthopedics with no plan for any intervention at this point. Patient states her pain is improved with Voltaren gel. Echocardiogram reveals EF of 45-50% with moderate concentric left ventricle hypertrophy, mild aortic stenosis, trace to mild mitral regurgitation, mild tricuspid regurgitation. X-ray of the right shoulder showed no acute fracture or dislocation. patient continues remain in the ICU. Patient denies any chest pain or shortness of breath currently on room air. Rhino Rocket was removed and Afrin spray used to prevent nosebleed. Patient started bleeding within few minutes from the right there and coughed up a blood clot that was choking the patient. Vitals were reviewed afebrile pulse 67 respiratory rate 16 blood pressure 136/64. Will switch Levemir to 10 twice a day as patient's blood sugar continues to be elevated it appears patient is refusing insulin since she is afraid of side effects. Dictated and discussed about the need for insulin as inpatient as we are holding metformin. Patient is agreeable to continue insulin in the hospital will discontinue insulin aspartate 5 units 3 times a day. Rhino rocket was reinserted to prevent nosebleed. ENT consulted for possible cauterization for REVIEW OF SYSTEMS Constitutional: No fever, no chills, no night sweats. No weight change. No weakness, fatigue or lethargy. No daytime sleepiness. EENT: Reports headache. Positive epistaxis post removal of rapid rocket No blurred vision or double vision, no loss of vision. No loss of Hearing, no ringing in the ears, no dizziness. No nasal drainage or congestion. No sore throat. Lungs: No shortness of breath, cough, no sputum production. No wheezing. Cardiovascular: No chest pain, no lower extremity edema. No palpitations. No paroxysmal nocturnal dyspnea. No orthopnea. No lightheadedness or dizziness. No syncopal episodes. Abdominal: No abdominal pain. No nausea, vomiting. No diarrhea. No constipation. No bloody or tarry stools. No loss of appetite. Genitourinary: No dysuria, increased frequency, urgency. No urinary retention. Musculoskeletal: No myalgias. No muscle weakness, no gait dysfunction, no frequent falls. No back pain. No neck pain. Right shoulder pain, decreased range of motion Integumentary: No wounds, no lesions. No rash or pruritus. No unusual bruising. Neurologic: No aphasia. No facial droop. No change in mentation. No head injury. No headache. No paralysis. No paresthesia. Psychiatric: No depression. No anxiety. No mood swings. Endocrine: No abnormal blood sugars. No weight change. No excessive sweating or thirst. No cold intolerance. PHYSICAL EXAMINATION Gen: This is a 76-year-old female. Patient is sitting up in a recliner in the ICU and appears to be comfortable. HEENT: Head is atraumatic, normocephalic. Pupils equal, round. Sclerae is anicteric. Rhino Rocket in place Active nosebleed, NECK: Supple. No JVD. No lymphadenopathy. No thyromegaly. LUNGS: Clear to auscultation. No wheezes or rhonchi. No intercostal retractions. HEART: Regular rate and rhythm. Systolic murmur. ABDOMEN: Soft. Bowel sounds are present. No masses. No tenderness. EXTREMITIES: No pedal edema. No calf tenderness. NEUROLOGICAL: Patient is awake, alert and oriented x3. Cranial nerves 2 through 12 are grossly intact. ASSESSMENT AND PLAN 1. Acute non-ST elevated myocardial infarction status post PCI of the LAD and circumflex. Lesion in the right coronary artery to be addressed at a later time. Continue aspirin 81 mg daily, Lipitor 80 mg daily, Brilinta 90 mg twice daily. Echocardiogram as above 2. Diabetes mellitus type 2 uncontrolled with hyperglycemia. Patient started on NovoLog scale before meals and at bedtime continue glimepiride 4 mg daily, hold metformin 1000 mg twice daily. Patient Levemir 10 units increased to twice daily, NovoLog 5 units 3 times daily discontinued. 3. Hypertension. Continue Norvasc 10 mg daily. 4. Hyperlipidemia. Continue atorvastatin. 5. Kidney tumor, possibly malignant. Patient is scheduled for surgery with Dr. Del Cid in the near future which most likely will need to be postponed. 6. Epistaxis. Reinserted Rhino rocket on 05/07 Consult with ENT for cauterization. 7. Right shoulder pain and decreased range of motion most likely secondary to positioning during cardiac catheterization. Consult with orthopedics appreciated. 8. Right upper extremity weakness. Neurology consult appreciated. Ultrasound venous and arterial are negative. 9. GI prophylaxis. Protonix. DISCHARGE PLAN Home. Objective - Vital Signs Vital signs: Vital Signs Temp 97.4 F L 05/07/21 04:00 Pulse 74 05/07/21 06:00 Resp 18 05/07/21 06:00 BP 128/61 05/07/21 06:00 Pulse Ox 95 03/19/22 06:00 Intake & Output 05/06/21 05/06/21 05/07/21 06:59 18:59 06:59 Intake Total 0 500 555 Output Total 154 077 0282 Balance -300 -100 -545 Weight 69.899 kg Intake: IV 500 75 Normal Saline 150 75 Sodium Chloride 0.9% 1, 150 000 ml In Empty Bag 1 bag @ 75 mls/hr IV .[id number] JANETTE Rx#:[id number] Oral 0 480 Output: Urine 553 171 2110 Other: # Voids 0 0 - Labs CBC & Chem 7: 05/06/21 05:49 05/06/21 05:49 Labs: Abnormal Lab Results - Last 24 Hours (Table) 05/06/21 05/06/21 05/06/21 Range/Units 05:49 18:23 20:25 BUN 24 H (7-17) mg/dL Glucose 211 H (74-99) mg/dL POC Glucose (mg/dL) 334 H 386 H (75-99) mg/dL 05/06/21 Range/Units 21:31 BUN (7-17) mg/dL Glucose (74-99) mg/dL POC Glucose (mg/dL) 334 H (75-99) mg/dL
[2021-05-07] MEDS: ACETAMINOPHEN TAB 325 MG TAB PO PRN ×3 (10:47→23:39)
[2021-05-07 12:25] LABS: Glucose,Whole Blood 275 mg/dL (75-99)
[2021-05-07 16:51] LABS: Glucose,Whole Blood 203 mg/dL (75-99)
--- NOTE | 2021-05-07 18:59 | PN ---
PROGRESS NOTE DATE OF SERVICE: 05/07/2021 SUBJECTIVE: Vital signs are stable. I stopped by the patient's room on 05/06/2021 at approximately 12:30, after completing my morning surgeries.The patient apparently had been taken to the quality control lab tech for insertion of another stent. At some point during either the morning(05/06/2021?), someone decided to completely deflate the patient's Rhino-rocket nasal balloons. This unfortunately was done prematurely. I outlined my plan in the consultation note 05/05/2021. The patient remains on aspirin and Brilinta and has been on this medication. These two medications were maintained after the most recent stent insertion. On the morning of 05/07/2021, someone attempted to prematurely remove the Rhino-rocket balloons. The patient immediately started bleeding, and the person who removed the balloons had the foresight to reinsert the balloons and inflate them to the point that the patient had no further bleeding. I would like to respectfully request that the management of the patient's nosebleed be left entirely up to me and the ENT service. Because the balloons were removed prematurely, this has certainly set things back at least a day or two with regard to eventually removing the balloons. The balloon will now have to stay in for another 24 to 48 hours before I attempt to deflate it completely and remove it. It is not unusual to leave these low-pressure balloons in for seven or more days with careful monitoring of the patient. I am not going to outline my plan for doing this but will use my medical judgment and 40 years of experience at caring for epistaxis. I checked the patient today, and at the time that I entered the room there was no active bleeding. The patient stated that when they deflated the balloon there was some trickling of blood and also certainly when they removed the balloon there was significant bleeding until they reinserted it. She states that she had a slight headache but would have preferred to have taken a couple of Tylenol rather than have the balloons removed and bleeding occur. She apparently has regular Tylenol ordered for headache. I had already discussed with the patient the fact that the presence of these balloons are uncomfortable, to say the least. However, they do work. At the time I originally saw the patient, she felt that she could tolerate the slight discomfort that she was having from the balloons and did not request that they be deflated; this was on 05/05/2021. I suggested to her that if they become uncomfortable or she develops a headache, which may or may not be related to the balloons, she is simply request the Tylenol. I will not order any other analgesics or any medications without first consulting the primary physicians caring for this patient. I also informed the patient that because the posterior balloon is most likely blocking her eustachian tube, her right ear will tend to feel plugged or have pressure present in it. Once t he balloons are removed, this plugged sensation will resolve on its own. The patient completely understands my reasoning for not wanting to remove the Rhino-rocket balloons prematurely. OBJECTIVE: HEENT: Patient is normocephalic. Intranasal examination reveals that the left naris is completely free of any blood. Examination of oropharynx reveals that there is no evidence of any bleeding down the posterior pharynx at this time. There is dry blood around the tip of the balloon, but there is no drainage around the balloon. It would not be unusual to see some drainage around the balloon intermittently. The patient has been maintaining a normal blood pressure. ASSESSMENT: Anterior/posterior epistaxis. PLAN: I will check the patient tomorrow,05/08/2021, and make decisions regarding the management of the Rhino-rocket balloons. MMODL / IJN: [id number] / MTDD
[2021-05-07 20:25] LABS: Glucose,Whole Blood 282 mg/dL (75-99)
[2021-05-07] MEDS: ATORVASTATIN 80 MG TAB PO SCH (20:28)
[2021-05-08 06:55] LABS: Glucose,Whole Blood 128 mg/dL (75-99)
--- NOTE | 2021-05-08 07:49 | P.PN ---
Subjective HISTORY OF PRESENTING ILLNESS The patient is a pleasant 76-year-old female patient with a past medical history significant for diabetes and hypertension and dyslipidemia who presented to the hospital complaining of chest discomfort. She continues to have ongoing chest discomfort. For that reason emergent heart catheterization was advised. The patient underwent a heart catheterization and during the procedure he had some ST changes just before we started the procedure consistent with ST segment elevation RI. She underwent an emergent heart catheterization and that revealed occluded LAD in the ostium and severe disease involving the LCx as well as intermediate to severe disease involving the RCA. The patient underwent successful stenting of the LAD with a good angiographic results and without any complication. The patient was seen this morning. Her right arm pain/weakness has improved significantly. Neurology service seen the patient yesterday and the plan is to repeat the computed tomography scan today to rule out any ischemic stroke. If the computed tomography scan did not show any evidence of ischemic stroke we are going to take the patient to the labor standards director to perform PCI of the left circumflex a potentially the RCA. Meanwhile she denies any symptoms of chest pain or chest discomfort or shortness of breath. She has been maintaining normal sinus mechanism. Vitals overall stable. She is on dual antiplatelet therapy as well as high intensity statin. She is also in process of having carotid duplex study. The echo revealed mildly impaired LV function with EF between 45-50% with wall motion abnormalities anteriorly. 05/07 seen and examined. Patient underwent successful stenting of the circumflex from the right femoral approach. She did have bleeding from her nose and has a packing in her right naris. She denies any chest pain or pressure. No shortness breath. She states she has been tolerating diet. Right femoral site appears stable with no hematoma. She apparently has been refusing her i nsulin with sugars elevated in the 300s. 05/08 Patient seen and examined. Patient denies any chest pain or pressure. Denies any shortness breath. She did have her nasal balloon deflated yesterday with increased bleeding and therefore was reinflated. ENT note appreciated with longer-term balloon placement expected. PHYSICAL EXAMINATION Vital signs reviewed. CONSTITUTIONAL: No apparent distress. HEENT: Head is normocephalic. Pupils are equal, round. Sclerae anicteric. Mucous membranes of the mouth are moist. No JVD. No carotid bruit. CHEST EXAMINATION: Lungs are clear to auscultation. No chest wall tenderness is noted on palpation or with deep breathing. HEART EXAMINATION: Regular rate and rhythm. S1, S2 heard. No murmurs, gallops or rub. ABDOMEN: Soft, nontender. Positive bowel sounds. EXTREMITIES: 2+ peripheral pulses, no lower extremity edema and no calf tenderness. NEUROLOGIC EXAMINATION: Patient is awake, alert and oriented x3. Assessment #1 acute non-ST elevation myocardial infarction #2 critical disease involving the ostial LAD. #3 successful stenting of the LAD, staged PCI circumflex #4 right side pain/weakness, improved #5 multiple comorbid conditions #6 Epistaxis Plan Patient is doing well status post LAD and circumflex stenting. She denies any chest pain or pressure. Continue dual antiplatelets. Epistaxis management per ENT. Patient may be discharged home from a cardiology standpoint when cleared by ENT. Objective - Vital Signs Vital signs: Vital Signs Temp 97.7 F 05/08/21 04:00 Pulse 69 05/08/21 04:00 Resp 19 05/08/21 04:00 BP 132/72 05/07/21 23:59 Pulse Ox 97 05/08/21 04:00 Intake & Output 05/07/21 05/08/21 05/08/21 18:59 06:59 18:59 Intake Total 200 Output Total 750 1200 Balance -750 -1000 Intake: Oral 200 Output: Urine 750 1200 Other: # Bowel Movements 1 - Labs CBC & Chem 7: 05/06/21 05:49 05/06/21 05:49 Labs: Abnormal Lab Results - Last 24 Hours (Table) 05/07/21 05/07/21 05/07/21 Range/Units 12:23 16:50 20:23 POC Glucose (mg/dL) 275 H 203 H 282 H (75-99) mg/dL 05/08/21 Range/Units 06:53 POC Glucose (mg/dL) 128 H (75-99) mg/dL
[2021-05-08] MEDS: INSULIN ASPART (NovoLOG) 100 UNIT/ML VIAL SQ SCH ×4 (08:24→21:36)
[2021-05-08] MEDS: INSULIN DETEMIR (LEVEMIR) 100 UNIT/ML SYR SQ SCH ×2 (08:34→21:36)
[2021-05-08] MEDS: TICAGRELOR 90 MG TAB PO SCH ×2 (08:35→21:34)
[2021-05-08] MEDS: ASPIRIN 81 MG PO SCH (08:35)
[2021-05-08] MEDS: BENAZEPRIL PO SCH (08:35)
[2021-05-08] MEDS: GLIMEPIRIDE 4 MG TAB PO SCH (08:35)
[2021-05-08] MEDS: AMLODIPINE BESYLATE PO SCH (08:35)
[2021-05-08] MEDS: DICLOFENAC SODIUM GEL 100 GM TUBE TOPICAL SCH ×4 (08:37→21:45)
[2021-05-08] MEDS: CHOLECALCIFEROL 25 MCG (1000 IU) TABLET PO SCH (08:37)
[2021-05-08 11:21] LABS: Glucose,Whole Blood 210 mg/dL (75-99)
[2021-05-08 13:27] LABS: Basophils % (A) 0 %; Eosinophils # (A) 0.4 k/uL (0-0.7); Eosinophils % (A) 5 %; HCT 34.6 % (34.0-46.0); HGB 11.3 gm/dL (11.4-16.0); Hypochromasia Slight; Lymphocytes # (A) 1.1 k/uL (1.0-4.8); Lymphocytes % (A) 14 %; MCH 30.4 pg (25.0-35.0); MCHC 32.6 g/dL (31.0-37.0); MCV 93.1 fL (80.0-100.0); Mean Platelet Volume 7.5; Monocytes # (A) 0.4 k/uL (0-1.0); Monocytes % (A) 5 %; Neutrophils # (A) 5.6 k/uL (1.3-7.7); Neutrophils % (A) 75 %; Platelet Count 194 k/uL (150-450); RBC 3.72 m/uL (3.80-5.40); RDW 14.7 % (11.5-15.5); WBC 7.5 k/uL (3.8-10.6)
[2021-05-08 13:42] LABS: Albumin 3.7 g/dL (3.5-5.0); Calcium 8.9 mg/dL (8.4-10.2); Potassium 4.4 mmol/L (3.5-5.1); Total Bilirubin 0.5 mg/dL (0.2-1.3); Total Protein 6.7 g/dL (6.3-8.2)
--- NOTE | 2021-05-08 14:18 | P.PN ---
Subjective Progress Note Date: 05/08/21 HISTORY OF PRESENT ILLNESS This is a 76-year-old female patient of Dr. Villatoro with a past medical history significant for diabetes mellitus type II, hypertension, hyperlipidemia, kidney tumor with scheduled surgery with Dr. Del Cid in the near future, presented to the emergency department complaining of chest discomfort in the middle on her chest without radiation. EKG was a sinus rhythm with PVCs and nonspecific ST-T wave changes. Patient also had shortness of breath. Patient was given nitroglycerin with improvement. She had continued chest pain and was taken emergently to the [address] revealed calcified right and left coronary system with critical disease involving the ostial LAD from the left main as well as intermediate disease involving the left circumflex and severe focal eccentric lesion involving the RCA. Also she was found to have extremely elevated left-s ided filling pressure. Subsequently the patient underwent successful PCI of the LAD with an excellent angiographic results with restoring KAVITHA-3 flow to the LAD and without any complication from right radial approach. Patient was started on Brilinta, aspirin 81 mg daily, Lipitor is at 80 mg at bedtime. Patient developed nosebleed this morning that lasted for 3 hours and nose clip was placed on the right side and consult was added for Dr. Urrutia who will see the patient this afternoon. Patient also developed right arm shoulder pain unable to lift her right arm and consult was added for neurology. This appears to be musculoskeletal and consult added for orthopedics and x-ray of the right shoulder. Arterial ultrasound of the right upper extremity showed arterial flow demonstrated in the carotid and axillary brachial arteries. Normal waveforms are seen. No evidence of thrombosis. No evidence of pseudoaneurysm. Venous ultrasound was negative for DVT. CAT scan of the brain was negative. Chest x-ray shows no acute process. 05/06: Patient remains in the intensive care unit. Patient returned to the [address] today and underwent stent of circumflex. The RCA will be addressed at a later time. IV Lasix discontinued by cardiology. Signing the echo CAT scan of the brain showed no acute intracranial abnormality done on 05/06. Neurology has recommended no further workup. Patient has been seen by orthopedics with no plan for any intervention at this point. Patient states her pain is improved with Voltaren gel. Echocardiogram reveals EF of 45-50% with moderate concentric left ventricle hypertrophy, mild aortic stenosis, trace to mild mitral regurgitation, mild tricuspid regurgitation. X-ray of the right shoulder showed no acute fracture or dislocation. patient continues remain in the ICU. Patient denies any chest pain or shortness of breath currently on room air. Rhino Rocket was removed on patient request and was informed ENT has not seen the patient and I have to remove the rhino rocket and Afrin spray used to prevent nosebleed. There had been no nose bleed since tte cuff were deflated 24 hours ago. I Patient started bleeding within few minutes from the right there and coughed up a blood clot that was choking the patient. Vitals were reviewed afebrile pulse 67 respiratory rate 16 blood pressure 136/64. Will switch Levemir to 10 twice a day as patient's blood sugar continues to be elevated it appears patient is refusing insulin since she is afraid of side effects. Dictated and discussed about the need for insulin as inpatient as we are holding metformin. Patient is agreeable to continue insulin in the hospital will discontinue insulin aspartate 5 units 3 times a day. Rhino rocket was reinserted to prevent nosebleed. ENT consulted for possible cauterization for nose bleed 05/08. Patient examined bedside. Continues to Rhino Rocket in place in the right nostril. No nosebleed noted. Vitals otherwise stable. Afebrile pulse 76 respiratory rate 19 blood pressure 129/63. Labs reviewed afebrile sodium 136 BP 124 creatinine 1.01 hemoglobin stable 11.3. Glucose ranging from 200 to 310. Levemir increased to 15 units 3 times a day with insulin sliding scale. Patient is adamant about change in the insulin to dosage and is looking forward to going home tomorrow. ENT evaluated the patient and would keep the rhino rocket for 48 hours before it could be removed by ENT. REVIEW OF SYSTEMS Constitutional: No fever, no chills, no night sweats. No weight change. No weakness, fatigue or lethargy. No daytime sleepiness. EENT: Reports headache. Positive epistaxis post removal of rapid rocket No blurred vision or double vision, no loss of vision. No loss of Hearing, no ringing in the ears, no dizziness. No nasal drainage or congestion. No sore throat. Lungs: No shortness of breath, cough, no sputum production. No wheezing. Cardiovascular: No chest pain, no lower extremity edema. No palpitations. No paroxysmal nocturnal dyspnea. No orthopnea. No lightheadedness or dizziness. No syncopal episodes. Abdominal: No abdominal pain. No nausea, vomiting. No diarrhea. No constipation. No bloody or tarry stools. No loss of appetite. Genitourinary: No dysuria, increased frequency, urgency. No urinary retention. Musculoskeletal: No myalgias. No muscle weakness, no gait dysfunction, no frequent falls. No back pain. No neck pain. Right shoulder pain, decreased range of motion Integumentary: No wounds, no lesions. No rash or pruritus. No unusual bruising. Neurologic: No aphasia. No facial droop. No change in mentation. No head injury. No headache. No paralysis. No paresthesia. Psychiatric: No depression. No anxiety. No mood swings. Endocrine: No abnormal blood sugars. No weight change. No excessive sweating or thirst. No cold intolerance. PHYSICAL EXAMINATION Gen: This is a 76-year-old female. Patient is sitting up in a recliner in the ICU and appears to be comfortable. HEENT: Head is atraumatic, normocephalic. Pupils equal, round. Sclerae is anicteric. Rhino Rocket in place Active nosebleed, NECK: Supple. No JVD. No lymphadenopathy. No thyromegaly. LUNGS: Clear to auscultation. No wheezes or rhonchi. No intercostal retractions. HEART: Regular rate and rhythm. Systolic murmur. ABDOMEN: Soft. Bowel sounds are present. No masses. No tenderness. EXTREMITIES: No pedal edema. No calf tenderness. NEUROLOGICAL: Patient is awake, alert and oriented x3. Cranial nerves 2 through 12 are grossly intact. ASSESSMENT AND PLAN 1. Acute non-ST elevated myocardial infarction status post PCI of the LAD and circumflex. Lesion in the right coronary artery to be addressed at a later time. Continue aspirin 81 mg daily, Lipitor 80 mg daily, Brilinta 90 mg twice daily. Echocardiogram as above 2. Diabetes mellitus type 2 uncontrolled with hyperglycemia. Patient started on NovoLog scale before meals and at bedtime continue glimepiride 4 mg daily, hold metformin 1000 mg twice daily. Levemir increased to 15 twice daily, NovoLog 5 units 3 times daily discontinued. 3. Hypertension. Continue Norvasc 10 mg daily. 4. Hyperlipidemia. Continue atorvastatin. 5. Kidney tumor, possibly malignant. Patient is scheduled for surgery with Dr. Del Cid in the near future which most likely will need to be postponed. 6. Epistaxis. Reinserted Rhino rocket on 05/07 Consult with ENT for cauterization. 7. Right shoulder pain and decreased range of motion most likely secondary to positioning during cardiac catheterization. Consult with orthopedics appreciated. 8. Right upper extremity weakness. Neurology consult appreciated. Ultrasound venous and arterial are negative. 9. GI prophylaxis. Protonix. DISCHARGE PLAN Home. Objective - Vital Signs Vital signs: Vital Signs Temp 97.9 F 05/08/21 12:00 Pulse 76 05/08/21 12:00 Resp 19 05/08/21 12:00 BP 129/63 05/08/21 12:00 Pulse Ox 99 05/08/21 12:00 Intake & Output 05/07/21 05/08/21 05/08/21 18:59 06:59 18:59 Intake Total 200 240 Output Total 750 1200 Balance -750 -1000 240 Weight 69.1 kg Intake: Oral 200 240 Output: Urine 750 1200 Other: # Bowel Movements 1 - Labs CBC & Chem 7: 05/08/21 13:05 05/08/21 13:05 Labs: Abnormal Lab Results - Last 24 Hours (Table) 05/07/21 05/07/21 05/08/21 Range/Units 16:50 20:23 06:53 RBC (3.80-5.40) m/uL Hgb (11.4-16.0) gm/dL Sodium (137-145) mmol/L BUN (7-17) mg/dL Glucose (74-99) mg/dL POC Glucose (mg/dL) 203 H 282 H 128 H (75-99) mg/dL ALT (4-34) U/L 05/08/21 05/08/21 05/08/21 Range/Units 11:19 13:05 13:05 RBC 3.72 L (3.80-5.40) m/uL Hgb 11.3 L (11.4-16.0) gm/dL Sodium 136 L (137-145) mmol/L BUN 24 H (7-17) mg/dL Glucose 311 H (74-99) mg/dL POC Glucose (mg/dL) 210 H (75-99) mg/dL ALT 44 H (4-34) U/L
[2021-05-08] MEDS: ACETAMINOPHEN TAB 325 MG TAB PO PRN ×2 (14:55→21:34)
[2021-05-08 16:20] LABS: Glucose,Whole Blood 193 mg/dL (75-99)
--- NOTE | 2021-05-08 19:20 | PN ---
PROGRESS NOTE DATE OF PROGRESS NOTE: 05/08/2021. SUBJECTIVE: Vital signs are stable. Patient has not had any further bleeding. She is resting comfortably. OBJECTIVE: Inspection of the left naris and the posterior pharynx did not reveal any evidence of any bleeding. Therefore, both balloons on the rhino-rocket nasal packing were completely deflated. 10-15 minutes were allowed to elapse and once again examination of the left naris and the posterior pharynx did not reveal any evidence of any active bleeding. In addition, there was not evidence of any bleeding around the nasal packing. The rhino-rocket was left in place. The remainder of physical exam is unremarkable. ASSESSMENT: Right anterior posterior epistaxis. PLAN: I will see the patient tomorrow afternoon,05/09/2021, and re-evaluate her at that time. MMODL / IJN: [id number] / MTDD
[2021-05-08 21:30] LABS: Glucose,Whole Blood 208 mg/dL (75-99)
[2021-05-08] MEDS: ATORVASTATIN 80 MG TAB PO SCH (21:34)
[2021-05-09] MEDS: ACETAMINOPHEN TAB 325 MG TAB PO PRN ×4 (04:12→23:51)
[2021-05-09 07:14] LABS: Glucose,Whole Blood 125 mg/dL (75-99)
--- NOTE | 2021-05-09 07:49 | P.PN ---
Subjective Progress Note Date: 05/09/21 PROGRESS NOTE The patient is a 76-year-old female with no prior documented history of CAD presented with an acute myocardial infarction, underwent cardiac catheterization and was found to have severe obstructive disease in the ostium of the LAD, mid left circumflex and moderate to severe disease in the RCA. She underwent stenting of her ostial LAD and subsequently staged intervention on her circumflex. She had epistaxis. She is doing better at this time. She denies any chest discomfort, dizziness or palpitations. She continues to be in sinus mechanism with no evidence of malignant arrhythmia. She continues to be on amlodipineBenazepril 1040 milligrams daily, aspirin once a day, atorvastatin 80 mg daily, insulin, Amaryl, Brilinta 90 mg twice a day. Her echocardiogram showed an ejection fraction of 45-50%. PHYSICAL EXAMINATION: Blood pressure 130/66 heart rate 70 LUNGS: [Clear to auscultation] HEART: [Regular rate and rhythm, S1, S2. No S3. systolic murmur, ejection type] ABDOMEN: [Soft, nontender, no organomegaly] EXTREMETIES: [No edema] LAB: BUN 24, creatinine 1.01 IMPRESSION: 1. Status post anterior wall myocardial infarction with stenting of the LAD 2. Triple-vessel disease with staged stenting of the circumflex 3. Diabetes mellitus 4. Epistaxis stable PLAN: 1. Decreased level of activity 2. Probable discharge home today and follow-up as an outpatient if stable from ENT standpoint. Objective - Vital Signs Vital signs: Vital Signs Temp 97.8 F 05/09/21 04:00 Pulse 71 05/09/21 04:00 Resp 20 05/09/21 04:00 BP 130/66 05/09/21 04:00 Pulse Ox 99 05/09/21 04:00 Intake & Output 05/08/21 05/09/21 05/09/21 18:59 06:59 18:59 Intake Total 240 1200 Output Total 550 1750 Balance -310 -550 Weight 69.8 kg Intake: Oral 240 1200 Output: Urine 550 1750 Other: # Bowel Movements 1 1 - Labs CBC & Chem 7: 05/08/21 13:05 05/08/21 13:05 Labs: Abnormal Lab Results - Last 24 Hours (Table) 05/08/21 05/08/21 05/08/21 Range/Units 11:19 13:05 13:05 RBC 3.72 L (3.80-5.40) m/uL Hgb 11.3 L (11.4-16.0) gm/dL Sodium 136 L (137-145) mmol/L BUN 24 H (7-17) mg/dL Glucose 311 H (74-99) mg/dL POC Glucose (mg/dL) 210 H (75-99) mg/dL ALT 44 H (4-34) U/L 05/08/21 05/08/21 05/09/21 Range/Units 16:18 21:28 07:13 RBC (3.80-5.40) m/uL Hgb (11.4-16.0) gm/dL Sodium (137-145) mmol/L BUN (7-17) mg/dL Glucose (74-99) mg/dL POC Glucose (mg/dL) 193 H 208 H 125 H (75-99) mg/dL ALT (4-34) U/L
[2021-05-09] MEDS: CHOLECALCIFEROL 25 MCG (1000 IU) TABLET PO SCH (07:51)
[2021-05-09] MEDS: DICLOFENAC SODIUM GEL 100 GM TUBE TOPICAL SCH ×4 (07:52→22:47)
[2021-05-09] MEDS: TICAGRELOR 90 MG TAB PO SCH ×2 (07:52→20:07)
[2021-05-09] MEDS: INSULIN DETEMIR (LEVEMIR) 100 UNIT/ML SYR SQ SCH ×2 (07:52→20:26)
[2021-05-09] MEDS: ASPIRIN 81 MG PO SCH (07:52)
[2021-05-09] MEDS: GLIMEPIRIDE 4 MG TAB PO SCH (07:52)
[2021-05-09] MEDS: AMLODIPINE BESYLATE PO SCH (07:53)
[2021-05-09] MEDS: INSULIN ASPART (NovoLOG) 100 UNIT/ML VIAL SQ SCH ×4 (07:53→20:26)
[2021-05-09] MEDS: BENAZEPRIL PO SCH (07:53)
[2021-05-09 12:02] LABS: Glucose,Whole Blood 219 mg/dL (75-99)
[2021-05-09] MEDS ORDERED: LORazepam 2 MG/ML INJ IV STA ×2 (13:52→19:02)
[2021-05-09 16:46] LABS: Glucose,Whole Blood 271 mg/dL (75-99)
--- NOTE | 2021-05-09 17:37 | P.PN ---
Subjective Patient examined at bedside. Not complaining of any new symptom talked. She denies any chest pain, shortness of breath or palpitations. She does have a Rhino Rocket in place for right near the next be elevated by ENT. Objective - Vital Signs Vital signs: Vital Signs Temp 97.8 F 05/09/21 16:00 Pulse 75 05/09/21 16:00 Resp 20 05/09/21 16:00 BP 130/77 05/09/21 16:00 Pulse Ox 99 05/09/21 16:00 Intake & Output 05/08/21 05/09/21 05/09/21 18:59 06:59 18:59 Intake Total 240 1200 240 Output Total 550 1750 600 Balance -310 -550 -360 Weight 69.8 kg Intake: Oral 240 1200 240 Output: Urine 550 1750 600 Other: # Bowel Movements 1 1 1 - Exam Gen: This is a 76-year-old female. Patient is sitting up in a recliner in the ICU and appears to be comfortable. HEENT: Head is atraumatic, normocephalic. Pupils equal, round. Sclerae is anicteric. Rhino Rocket in place No nosebleed, NECK: Supple. No JVD. No lymphadenopathy. No thyromegaly. LUNGS: Clear to auscultation. No wheezes or rhonchi. No intercostal retractions. HEART: Regular rate and rhythm. Systolic murmur. ABDOMEN: Soft. Bowel sounds are present. No masses. No tenderness. EXTREMITIES: No pedal edema. No calf tenderness. NEUROLOGICAL: Patient is awake, alert and oriented x3. Cranial nerves 2 through 12 are grossly intact. - Labs CBC & Chem 7: 05/08/21 13:05 05/08/21 13:05 Labs: Abnormal Lab Results - Last 24 Hours (Table) 05/08/21 05/09/21 05/09/21 Range/Units 21:28 07:13 12:01 POC Glucose (mg/dL) 208 H 125 H 219 H (75-99) mg/dL 05/09/21 Range/Units 16:44 POC Glucose (mg/dL) 271 H (75-99) mg/dL Assessment and Plan Plan: 1. Acute non-ST elevated myocardial infarction status post PCI of the LAD and circumflex. Continue aspirin 81 mg daily, Lipitor 80 mg daily, Brilinta 90 mg twice daily. 2. Diabetes mellitus type 2 uncontrolled with hyperglycemia. Patient started on NovoLog scale before meals and at bedtime continue glimepiride 4 mg daily, hold metformin 1000 mg twice daily. Levemir increased to 15 twice daily, NovoLog 5 units 3 times daily discontinued. 3. Hypertension. Continue Norvasc 10 mg daily. 4. Hyperlipidemia. Continue atorvastatin. 5. Kidney tumor, possibly malignant. Patient is scheduled for surgery with Dr. Del Cid in the near future which most likely will need to be postponed. 6. Epistaxis. Reinserted Rhino rocket on 05/07 Consult with ENT for cauterization.- Pending revaluation removal and monitor of bleeding. 7. Right shoulder pain and decreased range of motion most likely secondary to positioning during cardiac catheterization. Consult with orthopedics appreciated. 8. Right upper extremity weakness. Neurology consult appreciated. Ultrasound venous and arterial are negative. 9. GI prophylaxis. Protonix.
[2021-05-09] MEDS ORDERED: THROMBIN (RECOMBINANT) 5,000 UNIT VIAL TOPICAL ONE ×2 (18:20→19:00)
[2021-05-09] MEDS: ATORVASTATIN 80 MG TAB PO SCH (20:07)
[2021-05-09 20:12] LABS: Glucose,Whole Blood 298 mg/dL (75-99)
[2021-05-09] MEDS ORDERED: OXYMETAZOLINE 0.05% NASL SPRAY 1 SPRAY BOTTLE NASAL SCH (22:00)
[2021-05-10 06:04] LABS: Glucose,Whole Blood 177 mg/dL (75-99)
[2021-05-10] MEDS: INSULIN ASPART (NovoLOG) 100 UNIT/ML VIAL SQ SCH ×4 (06:32→20:11)
--- NOTE | 2021-05-10 09:03 | P.PN ---
Subjective Progress Note Date: 05/10/21 PROGRESS NOTE The patient is a 76-year-old female with a history of hypertension, hyperlipidemia and diabetes mellitus who presented with a myocardial infarction, underwent stenting of her ostial LAD and subsequently left circumflex. She is doing well this morning. She continues to havepacking because of epistaxis. She denies any chest discomfort, dizziness or palpitations. She continues to be in sinus mechanism. She has no evidence of malignant arrhythmia. She continues to be on aspirin 81 mg daily, Lipitor 80 mg daily,Brilinta 90 mg twice a day, Lotrel 1040 milligrams daily. PHYSICAL EXAMINATION: Blood pressure 132/70 heart rate 80 LUNGS: Clear to auscultation HEART: Regular rate and rhythm, S1, S2. No S3. systolic murmur, ejection type ABDOMEN: Soft, nontender, no organomegaly EXTREMETIES: No edema IMPRESSION: 1. Status post myocardial infarction and stenting of the LAD and subsequently left circumflex 2. Epistaxis stable 3. Hypertension 4. Hyperlipidemia PLAN: 1. Continue present therapy 2. Probable discharge home today and follow-up with Dr. Nieto in one week 3. Continue dual antiplatelets treatment for one year. Objective - Vital Signs Vital signs: Vital Signs Temp 98.2 F 05/10/21 07:33 Pulse 81 05/10/21 07:33 Resp 18 05/10/21 07:33 BP 132/76 05/10/21 07:33 Pulse Ox 96 05/10/21 04:00 Intake & Output 05/09/21 05/10/21 05/10/21 18:59 06:59 18:59 Intake Total 240 Output Total 600 Balance -360 Intake: Oral 240 Output: Urine 600 Other: Voiding Method Toilet # Voids 1 # Bowel Movements 1 1 - Labs CBC & Chem 7: 05/08/21 13:05 05/08/21 13:05 Labs: Abnormal Lab Results - Last 24 Hours (Table) 05/09/21 05/09/21 05/09/21 Range/Units 12:01 16:44 20:10 POC Glucose (mg/dL) 219 H 271 H 298 H (75-99) mg/dL 05/10/21 Range/Units 06:00 POC Glucose (mg/dL) 177 H (75-99) mg/dL
[2021-05-10] MEDS: ACETAMINOPHEN TAB 325 MG TAB PO PRN ×2 (09:28→15:31)
[2021-05-10] MEDS: ASPIRIN 81 MG PO SCH (10:09)
[2021-05-10] MEDS: CHOLECALCIFEROL 25 MCG (1000 IU) TABLET PO SCH (10:10)
[2021-05-10] MEDS: GLIMEPIRIDE 4 MG TAB PO SCH (10:11)
[2021-05-10] MEDS: INSULIN DETEMIR (LEVEMIR) 100 UNIT/ML SYR SQ SCH ×2 (10:12→20:30)
[2021-05-10] MEDS: DICLOFENAC SODIUM GEL 100 GM TUBE TOPICAL SCH ×4 (10:12→20:10)
[2021-05-10] MEDS: TICAGRELOR 90 MG TAB PO SCH ×2 (10:13→20:10)
[2021-05-10] MEDS: AMLODIPINE BESYLATE PO SCH (10:13)
[2021-05-10] MEDS: BENAZEPRIL PO SCH (10:13)
--- NOTE | 2021-05-10 10:53 | PN ---
PROGRESS NOTE DATE OF SERVICE: 05/09/2021. SUBJECTIVE: Vital signs stable. Apparently a couple of hours after I removed the patient's packing this afternoon, the patient started bleeding from the right naris once again. The nursing staff states that it was a moderate bleed and they simply applied pressure to the nose. They called me and they also called Dr. Marshall. Dr. Marshall was able to see the patient. However, by the time he saw the patient the bleeding had stopped. I called the ICU and advised them that I would be coming in to reassess the situation. I arrived at the hospital at approximately 6:30 PM. OBJECTIVE: HEENT: The patient is normocephalic. At this present time the patient is not actively bleeding. I tried to have her clear as much of the blood clots from her nose as possible. As long as blood clots are present in the nose, these will tend to absorb any clotting factors and make the situation worse. Because the patient's bleed was only moderate and it was intermittent, I elected to insert a Merocel nasal tampon in the right naris instead of a another rhino-rocket nasal balloon. The right naris was generously sprayed with Afrin nasal spray. A period of approximately 10 minutes was allowed to elapse to achieve maximum vasoconstriction of all of the structures such as the turbinates and blood vessels intranasally. The procedure was then carried out. In addition to this I acquired a thrombin kit with the powder, saline, needle, etc. The Merocel tampon was generously lubricated with Lacri-Lube and was carefully inserted slowly along the floor of the patient's nose, directing it posteriorly. This was done to avoid any type of obstruction such as septal deviation. Although the patient experienced some discomfort, she was able to tolerate this quite well. This apparently did not stir up any active bleeding. The next step was to infuse the nasal tampon with approximately 5 mL of the thrombin solution using an 18-gauge needle and a 10 mL syringe. The needle was inserted into the nasal tampon parallel to the floor of the nose and the solution was injected into the tampon only. Once the patient stated that she could feel the solution running down the back of her throat, it was felt that the tampon was completely saturated with the thrombin solution. It is hoped that having the thrombin solution in the nasal tampon will help the patient's blood to coagulate intranasally without interfering with her current oral anticoagulants. A second mustache dressing was applied. PLAN: Hopefully this will control the patient's bleeding. If it does, I will check the patient tomorrow, 05/10/2021, and also on 05/11/2021. If the patient has no further bleeding, then she would be able to be discharged home with the nasal tampon in place after I see her on 05/11/2021. I plan to see her on 05/11/2021 after my morning office hours or approximately at 1:30 PM. I generally will leave these Merocel nasal tampons in place for 7 to 10 days and take them out in my office. If the patient should start to bleed again, then I will try placing an Epistat anterior/posterior nasal balloon, which is more comfortable but just as effective as the Rhino-rocket. Unfortunately, this patient has to remain on her Brilinta and her aspirin, and therefore controlling her epistaxis is extremely difficult. It seems, however, that we have managed to get the bleeding down significantly, and hopefully we will be able to get it stopped completely. I will check in with the nurse later [facility]; and they have my number to call, even though I am not business solutions director, if there are any issues. ARPAN / JF: [id number] / MTDD
--- NOTE | 2021-05-10 10:57 | PN ---
PROGRESS NOTE DATE OF SERVICE: 05/09/2021. SUBJECTIVE: Vital signs stable. The patient has gone 48 hours with the nasal balloons deflated without any bleeding. I explained to the patient that I was going to carefully remove the nasal packing (Rhino-rocket) from the right naris. We are going to give her 0.5 mg of Ativan to relax her and reduce any anxiety from this minor procedure. OBJECTIVE: HEENT: Patient is normocephalic. The Rhino-rocket is intact. The balloons were checked to make sure that they were completely deflated. Next the left naris was checked and there was no bleeding in the left naris. Examination of the oropharynx revealed no bleeding in the posterior pharynx. Therefore, the nasal balloon was grasped by the catheters and gently pulled and removed from the patient's right naris in an atraumatic fashion. The packing on the Rhino-rocket appeared to have only a few spots of blood on it. Intranasal examination did not reveal any active bleeding. Examination of the posterior pharynx again did not reveal any active bleeding. ASSESSMENT: Right anterior/posterior epistaxis. PLAN: I applied a mustache dressing using an eye patch. I instructed the nursing staff how to do this. I also advised the nursing staff that they will now start spraying Afrin nasal spray 2 puffs in the right nostril 3 times daily. I am going to also order that the patient receive 1 gram of Ancef IV q.8 hours. This should help reduce or treat any maxillary sinus infection that might be present. I will continue to check on the patient in case any bleeding occurs since the packing has now been removed. MMODL / IJN: [id number] / MTDD
[2021-05-10 11:33] LABS: Glucose,Whole Blood 197 mg/dL (75-99)
--- NOTE | 2021-05-10 15:43 | P.PN ---
Subjective Patient was examined at bedside today Rhino Rocket has been removed as per ENT patient was examined by the service today they're recommending to monitor for another 24 hours for any bleeding. Patient denies any chest pain, shortness of breath or palpitations. Objective - Vital Signs Vital signs: Vital Signs Temp 97.6 F 05/10/21 11:37 Pulse 75 05/10/21 11:37 Resp 16 05/10/21 11:37 BP 130/71 05/10/21 11:37 Pulse Ox 95 05/10/21 11:37 Intake & Output 05/09/21 05/10/21 05/10/21 18:59 06:59 18:59 Intake Total 240 780 Output Total 600 1 Balance -360 779 Intake: Oral 240 780 Output: Urine 600 Stool 1 Other: Voiding Method Toilet Toilet # Voids 1 # Bowel Movements 1 1 - Exam Gen: This is a 76-year-old female. Patient is sitting up in a recliner in the ICU and appears to be comfortable. HEENT: Head is atraumatic, normocephalic. Pupils equal, round. Sclerae is anicteric. Packing in place NECK: Supple. No JVD. No lymphadenopathy. No thyromegaly. LUNGS: Clear to auscultation. No wheezes or rhonchi. No intercostal retractions. HEART: Regular rate and rhythm. Systolic murmur. ABDOMEN: Soft. Bowel sounds are present. No masses. No tenderness. EXTREMITIES: No pedal edema. No calf tenderness. NEUROLOGICAL: Patient is awake, alert and oriented x3. Cranial nerves 2 through 12 are grossly intact. - Labs CBC & Chem 7: 05/08/21 13:05 05/08/21 13:05 Labs: Abnormal Lab Results - Last 24 Hours (Table) 05/09/21 05/09/21 05/10/21 Range/Units 16:44 20:10 06:00 POC Glucose (mg/dL) 271 H 298 H 177 H (75-99) mg/dL 05/10/21 Range/Units 11:31 POC Glucose (mg/dL) 197 H (75-99) mg/dL Assessment and Plan Plan: 1. Acute non-ST elevated myocardial infarction status post PCI of the LAD. Continue aspirin 81 mg daily, Lipitor 80 mg daily, Brilinta 90 mg twice daily. 2. Diabetes mellitus type 2 uncontrolled with hyperglycemia. Patient started on NovoLog scale before meals and at bedtime continue glimepiride 4 mg daily, hold metformin 1000 mg twice daily. Levemir increased to 15 twice daily, NovoLog 5 units 3 times daily discontinued. 3. Hypertension. Continue Norvasc 10 mg daily. 4. Hyperlipidemia. Continue atorvastatin. 5. Kidney tumor, possibly malignant. Patient is scheduled for surgery with Dr. Del Cid in the near future which most likely will need to be postponed. 6. Epistaxis. Reinserted Rhino rocket on 05/07 Consult with ENT for cauterization.- Interocular removed, ENT recommending monitoring for another 24 hours. 7. Right shoulder pain and decreased range of motion most likely secondary to positioning during cardiac catheterization. 8. Right upper extremity weakness. Ultrasound venous and arterial are negative. 9. GI prophylaxis. Protonix.
[2021-05-10 16:18] LABS: Glucose,Whole Blood 198 mg/dL (75-99)
[2021-05-10 19:40] LABS: Glucose,Whole Blood 248 mg/dL (75-99)
[2021-05-10] MEDS: ATORVASTATIN 80 MG TAB PO SCH (20:10)
--- NOTE | 2021-05-10 22:47 | PN ---
PROGRESS NOTE DATE OF SERVICE: 05/10/2021 SUBJECTIVE: Vital signs are stable. The patient has not had any significant further bleeding since yesterday. She remains on her anticoagulants of Brilinta and a baby aspirin. OBJECTIVE: HEENT: Patient is normocephalic. Tympanic membranes are normal. Examination of the right nasal packing, a 10 cm Merocel nasal epistaxis tampon, reveals that it is essentially dry. Examination of the left naris reveals that there is no bleeding on the left side of the nose. Examination of the oropharynx reveals no evidence of any bleeding down the posterior pharyngeal wall. The remainder of the head and neck exam is essentially unremarkable. ASSESSMENT: Right anterior/posterior epistaxis. PLAN: I would like to keep the patient in another 24 hours. I will see her tomorrow,05/11/2021, after my morning office sometime around 1:30 p.m.. If at that time she has not had any further bleeding, from an ENT standpoint she can be discharged home. I will discharge her home with the nasal packing intact. I commonly leave these packings in for at least a week. Therefore, I will plan on taking the packing out in my office sometime next week. The patient has been instructed to avoid blowing her nose and also if she has to sneeze, she should do so with her mouth open. She will not be able to use any Afrin nasal spray intranasally. I will leave a prescription for Keflex capsules 500 mg #28 to be taken twice daily until completely gone. This will help prevent the patient from developing a sinus infection from any known blood that is present in the right maxillary sinus because of the nasal packing. Hopefully leaving the packing in for this extended period of time will give offending blood vessels time to thrombose and thereby stop the bleeding permanently. I will leave discharge instructions for the patient also. Please do not discharge the patient before 1:30 p.m 05/11/2021 until I have had a chance to see the patient . Thank you. MMNOLANL / SHEAN: [id number] / MTDAnali
[2021-05-11 06:07] LABS: Glucose,Whole Blood 150 mg/dL (75-99)
[2021-05-11] MEDS: INSULIN ASPART (NovoLOG) 100 UNIT/ML VIAL SQ SCH ×2 (06:13→11:43)
--- NOTE | 2021-05-11 08:35 | P.PN ---
Subjective Progress Note Date: 05/11/21 PROGRESS NOTE The patient is a 76-year-old female with a history of hypertension, hyperlipidemia and diabetes mellitus who presented with a myocardial infarction, underwent stenting of her ostial LAD and subsequently left circumflex. She is doing well this morning. She continues to havepacking because of epistaxis. She denies any chest discomfort, dizziness or palpitations. She continues to be in sinus mechanism. She has no evidence of malignant arrhythmia. She continues to be on aspirin 81 mg daily, Lipitor 80 mg daily,Brilinta 90 mg twice a day, Lotrel 1040 milligrams daily. May 11: The patient is feeling well today, she denies any chest discomfort or dizziness. She continues to have nose packing. She was evaluated by ENT and probably will be discharged home today. She has no further epistaxis. She continues to be in sinus mechanism. She is ambulating without any difficulties. PHYSICAL EXAMINATION: Blood pressure 132/70 heart rate 80, Packing in place LUNGS: Clear to auscultation HEART: Regular rate and rhythm, S1, S2. No S3. systolic murmur, ejection type ABDOMEN: Soft, nontender, no organomegaly EXTREMETIES: No edema IMPRESSION: 1. Status post myocardial infarction and stenting of the LAD and subsequently left circumflex 2. Epistaxis stable 3. Hypertension 4. Hyperlipidemia PLAN: 1. Continue present therapy 2. Probable discharge home today and follow-up with Dr. Nieto in one week 3. Continue dual antiplatelets treatment for one year. Objective - Vital Signs Vital signs: Vital Signs Temp 97.7 F 05/11/21 07:42 Pulse 73 05/11/21 07:42 Resp 18 05/11/21 07:42 BP 143/82 05/11/21 07:42 Pulse Ox 96 05/11/21 07:42 Intake & Output 05/10/21 05/11/21 05/11/21 18:59 06:59 18:59 Intake Total 900 340 180 Output Total 1 2 Balance 899 338 180 Intake: Intake, IV Titration 100 Amount ceFAZolin 1,000 mg In 100 Sodium Chloride 0.9% 50 ml @ 100 mls/hr IVPB Q8HR JANETTE Rx#:[id number] Oral 900 240 180 Output: Stool 1 2 Other: Voiding Method Toilet Toilet # Voids 2 2 - Labs CBC & Chem 7: 05/08/21 13:05 05/08/21 13:05 Labs: Abnormal Lab Results - Last 24 Hours (Table) 05/10/21 05/10/21 05/10/21 Range/Units 11:31 16:17 19:36 POC Glucose (mg/dL) 197 H 198 H 248 H (75-99) mg/dL 05/11/21 Range/Units 06:05 POC Glucose (mg/dL) 150 H (75-99) mg/dL
[2021-05-11] MEDS: ACETAMINOPHEN TAB 325 MG TAB PO PRN (08:55)
[2021-05-11 08:58] LABS: Basophils # (A) 0.1 k/uL (0-0.2); Basophils % (A) 1 %; Eosinophils # (A) 0.5 k/uL (0-0.7); Eosinophils % (A) 5 %; HCT 35.4 % (34.0-46.0); HGB 11.2 gm/dL (11.4-16.0); Lymphocytes # (A) 1.6 k/uL (1.0-4.8); Lymphocytes % (A) 18 %; MCH 29.4 pg (25.0-35.0); MCHC 31.6 g/dL (31.0-37.0); Mean Platelet Volume 7.7; Monocytes # (A) 0.5 k/uL (0-1.0); Monocytes % (A) 5 %; Neutrophils # (A) 6.3 k/uL (1.3-7.7); Neutrophils % (A) 69 %; Platelet Count 224 k/uL (150-450); RBC 3.81 m/uL (3.80-5.40); RDW 14.6 % (11.5-15.5); WBC 9.1 k/uL (3.8-10.6)
[2021-05-11 09:15] LABS: Calcium 9.2 mg/dL (8.4-10.2); Potassium 4.3 mmol/L (3.5-5.1)
[2021-05-11] MEDS: DICLOFENAC SODIUM GEL 100 GM TUBE TOPICAL SCH ×2 (09:26→11:43)
[2021-05-11] MEDS: INSULIN DETEMIR (LEVEMIR) 100 UNIT/ML SYR SQ SCH (09:27)
[2021-05-11] MEDS: CHOLECALCIFEROL 25 MCG (1000 IU) TABLET PO SCH (09:27)
[2021-05-11] MEDS: TICAGRELOR 90 MG TAB PO SCH (09:27)
[2021-05-11] MEDS: ASPIRIN 81 MG PO SCH (09:27)
[2021-05-11] MEDS: GLIMEPIRIDE 4 MG TAB PO SCH (09:27)
[2021-05-11] MEDS: BENAZEPRIL PO SCH (09:28)
[2021-05-11] MEDS: AMLODIPINE BESYLATE PO SCH (09:28)
[2021-05-11 10:14] VITALS: BMI 29.0
--- NOTE | 2021-05-11 11:30 | P.DS ---
Providers Date of admission: 05/04/21 17:22 Attending physician: Timothy Cheng MD Consults: 05/04/21 17:06 Consult Physician Routine Consulting Provider: Roldan Nieto Consult Reason/Comments: ACS Do you want consulting provider notified?: Already Contacted 05/05/21 03:14 Consult Physician Routine Consulting Provider: David Monroy Consult Reason/Comments: New right upper extremity weakness Do you want consulting provider notified?: Yes, Notify in am 05/05/21 12:19 Consult Physician Routine Consulting Provider: Eric Perez Consult Reason/Comments: right shoulder pain Do you want consulting provider notified?: Yes 05/05/21 12:45 Consult Physician Routine Consulting Provider: Edgar Urrutia Consult Reason/Comments: nose bleed Do you want consulting provider notified?: Already Contacted Primary care physician: Haritha Villatoro [facility] Course: 76-year-old female patient of Dr. Villatoro with a past medical history significant for diabetes mellitus type II, hypertension, hyperlipidemia, kidney tumor with scheduled surgery with Dr. Del Cid in the near future, presented to the emergency department complaining of chest discomfort in the middle on her chest without radiation. EKG was a sinus rhythm with PVCs and nonspecific ST-T wave changes. Patient also had shortness of breath. Patient was given nitroglycerin with improvement. She had continued chest pain and was taken emergently to the manager cath lab revealed calcified right and left coronary system with critical disease involving the ostial LAD from the left main as well as intermediate disease involving the left circumflex and severe focal eccentric lesion involving the RCA. Also she was found to have extremely elevated left-sided filling pressure. Subsequently the patient underwent successful PCI of the LAD with an excellent angiographic results with restoring KAVITHA-3 flow to the LAD and without any complication from right radial approach. Patient was started on Brilinta, aspirin 81 mg daily, Lipitor is at 80 mg at bedtime. Patient developed nosebleed this morning that lasted for 3 hours and nose clip was placed on the right side and consult was added for Dr. Urrutia who will see the patient this afternoon. Patient also developed right arm shoulder pain unable to lift her right arm and consult was added for neurology. Patient has been evaluated and okay to discharge by cardiology. We will resume and continue with the same medications including aspirin and Proventil. Patient is asked to follow with cardiology within 1 week of discharge and her PCP. Unfortunately she also developed a nosebleed was placed on Rhino Rocket and removed and evaluated by ENT. At this time she is okay to be discharged from cardiology, and ENT a prescription for Keflex has been left in the chart by the building performance consultant. Patient is asymptomatic no signs of bleeding no chest pain okay to discharge and follow-up consultants within 1 week. Discharge condition for Keflex left in the chart confirmed with RN. Patient to continue with home medication for amlodipine/Benzapril 1040 confirmed by cardiology and continue aspirin and Brilinta. Patient Condition at Discharge: Critical Plan - Discharge Summary Discharge Rx Participant: No New Discharge Prescriptions: New Ticagrelor [Brilinta] 90 mg PO BID 30 Days #60 tab Aspirin 81 mg PO DAILY 30 Days #30 Atorvastatin [Lipitor] 80 mg PO HS 30 Days #30 tab Continue metFORMIN HCL [Glucophage] 1,000 mg PO BID Cholecalciferol [Vitamin D3 (25 Mcg = 1000 Iu)] 50 mcg PO DAILY Glimepiride [Amaryl] 4 mg PO DAILY amLODIPine BESYLATE/BENAZEPRIL [amLODIPine BESYLATE/BENAZEPRIL 10-40 mg] 1 cap PO DAILY Discontinued Atorvastatin Calcium [Lipitor] 40 mg PO HS Triamterene-Hctz 37.5-25Mg [Dyazide 37.5-25 Capsule] 1 cap PO W/BRKFST Discharge Medication List Cholecalciferol [Vitamin D3 (25 Mcg = 1000 Iu)] 50 mcg PO DAILY 05/04/21 [History] Glimepiride [Amaryl] 4 mg PO DAILY 05/04/21 [History] amLODIPine BESYLATE/BENAZEPRIL [amLODIPine BESYLATE/BENAZEPRIL 10-40 mg] 1 cap PO DAILY 05/04/21 [History] metFORMIN HCL [Glucophage] 1,000 mg PO BID 05/04/21 [History] Aspirin 81 mg PO DAILY 30 Days #30 05/11/21 [Rx] Atorvastatin [Lipitor] 80 mg PO HS 30 Days #30 tab 05/11/21 [Rx] Ticagrelor [Brilinta] 90 mg PO BID 30 Days #60 tab 05/11/21 [Rx] Follow up Appointment(s)/Referral(s): Haritha Villatoro MD [Primary Care Provider] - 1-2 days Roldan Nieto MD [STAFF PHYSICIAN] - 1 Week Edgar Urrutia MD [STAFF PHYSICIAN] - 1 Week Patient Instructions/Handouts: Angina (GEN), Heart Attack (GEN), Heart Healthy Diet (GEN) Activity/Diet/Wound Care/Special Instructions: 1. Special ENT discharge instructions, please carefully read/review: 1. Because you still have packing in the right side of your nose, you should avoid blowing your nose, and if you have to sneeze you should do so with your mouth open. Keeping your mouth open while sneezing allows the force of the sneeze to come out through your mouth and reduces the risk of dislodging the nasal packing. It is okay for you to shower, shampoo your hair, and take baths as usual. You will be given a prescription for a antibiotic, Keflex 500 mg capsules, which you should begin taking on the evening after your arrival home from the hospital and continued taking twice daily until it is completely gone. Please call Dr. Urrutia's office on , 05/12/2021, and schedule an appointment at his office for approximately [address] At that time Dr[address] Urrutia will remove the nasal packing from the right side of your nose. 2. If the string that is taped to the of your face comes loose, please re-tape it so that the string is not hanging down. Discharge Disposition: HOME SELF-CARE
[2021-05-11 11:41] LABS: Glucose,Whole Blood 354 mg/dL (75-99)
[2021-05-11 11:48] VITALS: BP 160/68; PULSE 75; RESP 19; TEMP 97.6
== END 2021-05-11 13:40 | disposition home or self-care (01) | DRG 246 ==
LOC: EC 15:15 → 3SCARD 17:22 → 2SICU 19:17 → 3SCARD 05-09 22:07 → 2SICU 05-09 22:45 → 3SCARD 05-09 22:57
PROVIDERS: ADMIT Internal Medicine; ATTEND Internal Medicine
PROC: B240ZZ3 Ultrasonography of Single Coronary Artery, Intravascular (ICD-10-PCS; principal; 2021-05-04 17:32)
PROC: 4A023N7 Measurement of Cardiac Sampling and Pressure, Left Heart, Percutaneous Approach (ICD-10-PCS; principal; 2021-05-04 17:32)
PROC: 027034Z Dilation of Coronary Artery, One Artery with Drug-eluting Intraluminal Device, Percutaneous Approach (ICD-10-PCS; principal; 2021-05-04 17:32)
PROC: B2111ZZ Fluoroscopy of Multiple Coronary Arteries using Low Osmolar Contrast (ICD-10-PCS; principal; 2021-05-04 17:32)
PROC: 2Y41X5Z Packing of Nasal Region using Packing Material (ICD-10-PCS; 2021-05-05)
PROC: 027034Z Dilation of Coronary Artery, One Artery with Drug-eluting Intraluminal Device, Percutaneous Approach (ICD-10-PCS; 2021-05-06)
PROC: 02713ZZ Dilation of Coronary Artery, Two Arteries, Percutaneous Approach (ICD-10-PCS; 2021-05-06)
PROC: 2Y41X5Z Packing of Nasal Region using Packing Material (ICD-10-PCS; 2021-05-09)
DX: I21.4 Non-ST elevation (NSTEMI) myocardial infarction (principal); D49.519 Neoplasm of unspecified behavior of unspecified kidney; E11.65 Type 2 diabetes mellitus with hyperglycemia; I25.110 Atherosclerotic heart disease of native coronary artery with unstable angina pectoris; I25.84 Coronary atherosclerosis due to calcified coronary lesion; E78.5 Hyperlipidemia, unspecified; E78.00 Pure hypercholesterolemia, unspecified; F06.4 Anxiety disorder due to known physiological condition; R04.0 Epistaxis; I08.3 Combined rheumatic disorders of mitral, aortic and tricuspid valves; M19.011 Primary osteoarthritis, right shoulder; I10 Essential (primary) hypertension; I49.3 Ventricular premature depolarization; Z53.20 Procedure and treatment not carried out because of patient's decision for unspecified reasons; Z79.84 Long term (current) use of oral hypoglycemic drugs; Z79.899 Other long term (current) drug therapy; Z90.49 Acquired absence of other specified parts of digestive tract; Z87.19 Personal history of other diseases of the digestive system; Z90.710 Acquired absence of both cervix and uterus; Z87.42 Personal history of other diseases of the female genital tract; Z86.018 Personal history of other benign neoplasm; Z87.39 Personal history of other diseases of the musculoskeletal system and connective tissue; Z98.890 Other specified postprocedural states; Z88.8 Allergy status to other drugs, medicaments and biological substances; Z82.49 Family history of ischemic heart disease and other diseases of the circulatory system; Z82.0 Family history of epilepsy and other diseases of the nervous system; Z83.6 Family history of other diseases of the respiratory system; Z80.9 Family history of malignant neoplasm, unspecified
CPT/HCPCS: 36415; 70450; 71045; 80048; 80053; 83690; 84484; 85025; 85027; 85610; 85730; 92978; 93005; 93306; 93458; 96365; 99291

== ENCOUNTER 2021-06-23 08:50 | Day surgery (SDC) | payer MEDICARE, OTHER ==
[2021-06-22 09:55] VITALS: BMI 30.8
[~2021-06-23 08:50] MED LIST changes: +ALPRAZolam 0.25 MG TAB PO PRN; +ALPRAZolam 0.5 MG TAB PO PRN; +ASPIRIN 325 MG TAB PO STA; -IV FLUID CONTINUATION 500 ML IV ONE; -LIDOCAINE 1% INJ 10MG/ML (20 ML MDV) SQ ONE; -MIDAZOLAM HCL 10 MG/10 ML VIAL IVP ONE; +NITROGLYCERIN SL TABS 0.4 MG TAB SUBLINGUAL PRN; -VERAPAMIL SYRINGE (5 MG/10 ML) INTRAARTER ONE
[2021-06-23 09:35] LABS: Glucose,Whole Blood 211 mg/dL (75-99)
[2021-06-23] MEDS: SODIUM CHLORIDE 0.9% 1,000 ML in EMPTY BAG 1 BAG IV SCH ×2 (09:40→21:03)
[2021-06-23] MEDS ORDERED: INSULIN ASPART (NovoLOG) 100 UNIT/ML VIAL SQ ONE (09:51)
[2021-06-23 10:06] LABS: Basophils # (A) 0.1 k/uL (0-0.2); Basophils % (A) 1 %; Calcium 9.7 mg/dL (8.4-10.2); Eosinophils # (A) 0.2 k/uL (0-0.7); Eosinophils % (A) 3 %; HCT 37.8 % (34.0-46.0); HGB 12.2 gm/dL (11.4-16.0); Lymphocytes % (A) 14 %; MCH 29.4 pg (25.0-35.0); MCHC 32.3 g/dL (31.0-37.0); MCV 91.1 fL (80.0-100.0); Mean Platelet Volume 7.6; Monocytes # (A) 0.4 k/uL (0-1.0); Monocytes % (A) 6 %; Neutrophils # (A) 5.4 k/uL (1.3-7.7); Neutrophils % (A) 75 %; Platelet Count 203 k/uL (150-450); Potassium 4.4 mmol/L (3.5-5.1); RBC 4.15 m/uL (3.80-5.40); RDW 14.2 % (11.5-15.5); WBC 7.2 k/uL (3.8-10.6)
[2021-06-23] MEDS ORDERED: VERAPAMIL 2.5 MG/ML 2 ML AMP ONE (12:27)
[2021-06-23] MEDS ORDERED: HEPARIN SODIUM 1,000 UN/ML (10ML VL) ONE (12:46)
[2021-06-23] MEDS ORDERED: MIDAZOLAM 2 MG/2 ML VIAL IV ONE ×2 (12:50→12:51)
[2021-06-23] MEDS ORDERED: LIDOCAINE 1% INJ 10MG/ML (30 ML VIAL-PF) SQ ONE (12:51)
[2021-06-23] MEDS ORDERED: HEPARIN SODIUM 1,000 UN/ML (10ML VL) IV ONE ×2 (12:55)
[2021-06-23] MEDS ORDERED: RX INFO: IV CONTRAST WAS GIVEN 1 EACH MISC MISCELLANE PRN (13:11)
[2021-06-23] MEDS ORDERED: IOPAMIDOL-370 100ML BTL INJ ONE (13:11)
[2021-06-23] MEDS ORDERED: SODIUM CHLORIDE 0.9% 1,000 ML IV SCH (13:15)
--- NOTE | 2021-06-23 13:19 | P.PCN ---
Date of Procedure: 06/23/21 Operative Findings: CARDIAC CATHETERIZATION PERFORMING PHYSICIAN: Roldan Nieto MD, RPVI PROCEDURE PERFORMED: 1. Selective right and left coronary angiogram 2. Left heart catheterization 3. Selective right common femoral artery angiogram 4. Ultrasound guidance access of the right common femoral artery INDICATION: This is a 76-year-old female patient was admitted to the hospital recently with acute coronary syndrome. She underwent a heart catheterization and stenting of the LAD and subsequently stenting of the left circumflex be she was noted to have severe disease involving the proximal right coronary artery. She was brought today to undergo an intervention on the RCA. COMPLICATION: None APPROACH: Right common femoral artery LEVEL OF SEDATION: Moderate with sedation length of 17 minutes PROCEDURE DESCRIPTION: After obtaining an informed consent, the patient was brought to cardiac cath lab nurse. Local anesthesia was performed using lidocaine subcutaneously. The right common femoral artery was cannulated using Seldinger technique, the guidewire passed easily, following that we advanced a 6 Finnish sheath dilator assembly, the wire and dilator were removed and sheath was flushed. Selective right and left coronary angiogram using a JR 3.5 short tip for the right coronary artery and JL4 for the left coronary system. Following that we did left heart catheterization using 6-Finnish pigtail catheter. The procedure was completed there was no complication. SELECTIVE CORONARY ANGIOGRAM: The right coronary artery: Is a moderate to large caliber vessel and a dominant vessel. The proximal RCA has eccentric lesion appears to be in the range of 50-60%. It doesn't seems to be flow limiting lesion. The mid RCA has mild disease only. The RCA has mild to moderate diffuse disease as well. Left main: Is a short left main bifurcates into LCx and LAD The left circumflex: Is a large caliber vessel and a codominant vessel. The proximal LCx is a stented and the stent is patent. The proximal LCx gives rises into a medium to large first and second obtuse marginal branches. They have moderate diffuse disease. The distal LCx appeared to have mild disease only. The LCx distally gives PDA which seems to be angiographically normal. The left anterior descending artery: The proximal LAD is a stented and the stent is patent. The mid LAD has a lesion appeared to be in the range of 50%. The LAD distally appears to have mild diffuse disease. The LAD gives rises into a large diagonal branch which has a l esion appeared to be in the range of 70-80%. HEMODYNAMICS: The LVEDP was 14 mmHg with about a 20 mm peak to peak gradient across aortic valve CONCLUSION: 1. Intermediate lesion involving the proximal RCA. The lesion appeared to be in the range of 50%. 2. Patent stent in the proximal LCx 3. Patent stent in the proximal LAD. Severe disease involving small to medium caliber first diagonal branch which is extremely tortuous 4. Normal left-sided filling pressure 5. Peak to peak gradient across aortic valve of almost 20 mmHg POSTPROCEDURE MANAGEMENT: Giving the above anatomy I advised maximize medical treatment and follow-up with the patient
[2021-06-23 17:49] LABS: Glucose,Whole Blood 233 mg/dL (75-99)
[2021-06-23 18:15] VITALS: RESP 18
[2021-06-23 22:00] VITALS: BP 165/73; PULSE 71; TEMP 98.4
== END 2021-06-23 22:58 | disposition home or self-care (01) ==
LOC: CATHCVL 08:50 → 6NMEDSUR 13:07 → CATHCVL 22:58
PROVIDERS: ATTEND Internal Medicine Interventional Cardiology
DX: I25.10 Atherosclerotic heart disease of native coronary artery without angina pectoris (principal); C64.9 Malignant neoplasm of unspecified kidney, except renal pelvis; I10 Essential (primary) hypertension; E78.5 Hyperlipidemia, unspecified; I25.5 Ischemic cardiomyopathy; I35.0 Nonrheumatic aortic (valve) stenosis; E11.51 Type 2 diabetes mellitus with diabetic peripheral angiopathy without gangrene; I25.2 Old myocardial infarction; R53.82 Chronic fatigue, unspecified; Z20.822 Contact with and (suspected) exposure to COVID-19; Z95.5 Presence of coronary angioplasty implant and graft; Z79.02 Long term (current) use of antithrombotics/antiplatelets; Z79.899 Other long term (current) drug therapy; Z88.8 Allergy status to other drugs, medicaments and biological substances; Z82.49 Family history of ischemic heart disease and other diseases of the circulatory system
CPT/HCPCS: 93458; 80048; 85025; 87635; C1887; C1894; C1769 ×2; J2250; J2001; J1644; Q9967

== ENCOUNTER → 2021-08-24 | Outpatient (CLI) | payer MEDICARE, OTHER ==
[2021-08-24 14:24] LABS: Basophils # (A) 0.05 X 10*3/uL (0.00-0.10); Basophils % (A) 0.6 %; Eosinophils % (A) 3.9 %; HCT 42.6 % (37.2-46.3); HGB 12.9 g/dL (12.0-15.0); Lymphocytes # (A) 1.48 X 10*3/uL (0.90-5.00); Lymphocytes % (A) 19.1 %; MCH 27.1 pg (27.0-32.0); MCHC 30.3 g/dL (32.0-37.0); MCV 89.5 fL (80.0-97.0); Mean Platelet Volume 10.3 fL (9.5-12.2); Monocytes # (A) 0.46 X 10*3/uL (0.20-1.00); Monocytes % (A) 5.9 %; NRBC Per 100 WBC 0 /100 WBCS (0.0-0.0); Neutrophils # (A) 5.37 X 10*3/uL (1.80-7.70); Neutrophils % (A) 69.5 %; Platelet Count 183 X 10*3/uL (140-440); RBC 4.76 X 10*6/uL (4.10-5.20); RDW 13.4 % (11.5-14.5); WBC 7.74 X 10*3/uL (4.50-10.00)
[2021-08-24 14:38] LABS: ALT 23 U/L (8-44); AST 24 U/L (13-35); Albumin 4.5 g/dL (3.8-4.9); Albumin/Globulin Ratio 1.41 (1.60-3.17); Alkaline Phosphatase 107 U/L (41-126); BUN/Creat Ratio 22.56 Ratio (12.00-20.00); Blood Urea Nitrogen 20.3 mg/dL (9.0-27.0); Calcium 9.9 mg/dL (8.7-10.3); Carbon Dioxide 23.8 mmol/L (20.0-27.5); Chloride 104 mmol/L (96-109); Chol/HDL Ratio 5.13 Ratio; Creatine Kinase 36 U/L (26-186); Globulin 3.2 g/dL (1.6-3.3); Glucose 77 mg/dL (70-110); LDL Cholesterol,Calculated 57.6 mg/dL (0.0-131.0); Potassium 4.7 mmol/L (3.5-5.5); Sodium 141 mmol/L (135-145); Total Protein 7.7 g/dL (6.2-8.2)
== END | disposition home or self-care (01) ==
LOC: LABWHC1 09:48
PROVIDERS: ATTEND Family Medicine
DX: I21.4 Non-ST elevation (NSTEMI) myocardial infarction (principal); E11.40 Type 2 diabetes mellitus with diabetic neuropathy, unspecified; E78.2 Mixed hyperlipidemia
CPT/HCPCS: 36415; 80053; 80061; 82550; 83036; 83880; 84439; 84443; 85025

== ENCOUNTER → 2021-11-04 | Outpatient (CLI) | payer MEDICARE, OTHER ==
[2021-11-04 14:46] LABS: Basophils # (A) 0.04 X 10*3/uL (0.00-0.10); Basophils % (A) 0.5 %; Eosinophils # (A) 0.34 X 10*3/uL (0.04-0.35); Eosinophils % (A) 4.3 %; HCT 44.2 % (37.2-46.3); Immature Grans, Automated 1.3 %; Lymphocytes # (A) 1.55 X 10*3/uL (0.90-5.00); Lymphocytes % (A) 19.7 %; MCHC 31.7 g/dL (32.0-37.0); MCV 88.4 fL (80.0-97.0); Mean Platelet Volume 10.3 fL (9.5-12.2); Monocytes # (A) 0.49 X 10*3/uL (0.20-1.00); Monocytes % (A) 6.2 %; NRBC Per 100 WBC 0 /100 WBCS (0.0-0.0); Neutrophils # (A) 5.36 X 10*3/uL (1.80-7.70); Platelet Count 173 X 10*3/uL (140-440); RDW 15.2 % (11.5-14.5); WBC 7.88 X 10*3/uL (4.50-10.00)
[2021-11-04 16:25] LABS: ALT 34 U/L (8-44); AST 24 U/L (13-35); African American GFR (CKD) 63.5 (60.0-200.0); Albumin 4.5 g/dL (3.8-4.9); Albumin/Globulin Ratio 1.36 (1.60-3.17); Alkaline Phosphatase 115 U/L (41-126); BUN/Creat Ratio 28.81 Ratio (12.00-20.00); Blood Urea Nitrogen 29.1 mg/dL (9.0-27.0); Carbon Dioxide 24.7 mmol/L (20.0-27.5); Chloride 102 mmol/L (96-109); Chol/HDL Ratio 6.15 Ratio; Globulin 3.3 g/dL (1.6-3.3); Glucose 93 mg/dL (70-110); LDL Cholesterol,Calculated 62.6 mg/dL (0.0-131.0); Non-African American GFR(CKD) 54.8 (60.0-200.0); Potassium 4.1 mmol/L (3.5-5.5); Sodium 141 mmol/L (135-145); Total Protein 7.9 g/dL (6.2-8.2)
[2021-11-04 19:30] LABS: Urine Creatinine 84.9 mg/dL (28.0-217.0)
--- NOTE | 2021-11-07 17:15 | MM ---
Reason for Exam: Screening (asymptomatic). Last mammogram was performed 1 year(s) and 3 month(s) ago. Patient History: Menarche at age 15. First Full-Term at age 23. Hysterectomy at age 40. Postmenopausal. 2010, Benign Excisional Biopsy on the left side. Maternal aunt had breast cancer. Sister had breast cancer, age 73. Risk Values: Marielos 5 year model risk: 4.0%. NCI Lifetime model risk: 9.0%. Prior Study Comparison: 10/04/2000 Left Special View Mammogram, [facility]. 12/09/2010 Bilateral Screening Mammogram, [facility]. 08/18/2020 Bilateral Screening Mammogram, [facility]. Tissue Density: There are scattered fibroglandular densities. Findings: Analyzed By CAD. Benign calcifications are present. There is a rounded density with partially obscured margins in the outer aspect left breast. This currently measures 0.4 cm, previous measurement 0.3 cm. Additional evaluation with ultrasound is recommended. This is located 10 cm from the nipple. Overall Assessment: Incomplete: need additional imaging evaluation, BI-RAD 0 Management: Diagnostic Breast Ultrasound of the left breast. A negative mammogram report should not preclude additional follow up of suspicious palpable abnormalities. Patient should continue monthly self breast exam. A clinical breast exam by your physician is recommended on an annual basis and results should be correlated with mammographic findings. Electronically signed and approved by: Cheikh Austin D.O. Radiologis
== END | disposition home or self-care (01) ==
LOC: RADMAMWWP 08:35
PROVIDERS: ATTEND Family Medicine
DX: Z12.31 Encounter for screening mammogram for malignant neoplasm of breast (principal); Z80.3 Family history of malignant neoplasm of breast; E11.40 Type 2 diabetes mellitus with diabetic neuropathy, unspecified; E11.22 Type 2 diabetes mellitus with diabetic chronic kidney disease; N18.31 Chronic kidney disease, stage 3a; E04.1 Nontoxic single thyroid nodule; E78.2 Mixed hyperlipidemia
CPT/HCPCS: 77063; 77067; 80053; 80061; 82043; 82570; 83036; 84439; 84443; 85025

== ENCOUNTER → 2021-11-16 | Outpatient (CLI) | payer MEDICARE, OTHER ==
[2021-11-16 18:03] LABS: Basophils # (A) 0.03 X 10*3/uL (0.00-0.10); Basophils % (A) 0.4 %; Eosinophils # (A) 0.25 X 10*3/uL (0.04-0.35); Eosinophils % (A) 3.5 %; HCT 40.8 % (37.2-46.3); HGB 13.1 g/dL (12.0-15.0); Immature Grans, Automated 1.1 %; Lymphocytes # (A) 1.02 X 10*3/uL (0.90-5.00); Lymphocytes % (A) 14.3 %; MCH 28.9 pg (27.0-32.0); MCHC 32.1 g/dL (32.0-37.0); MCV 89.9 fL (80.0-97.0); Mean Platelet Volume 10.6 fL (9.5-12.2); Monocytes % (A) 5.6 %; NRBC Per 100 WBC 0 /100 WBCS (0.0-0.0); Neutrophils # (A) 5.34 X 10*3/uL (1.80-7.70); Neutrophils % (A) 75.1 %; Platelet Count 180 X 10*3/uL (140-440); RBC 4.54 X 10*6/uL (4.10-5.20); RDW 15.2 % (11.5-14.5); WBC 7.12 X 10*3/uL (4.50-10.00)
[2021-11-16 18:17] LABS: Albumin 4.5 g/dL (3.8-4.9); Albumin/Globulin Ratio 1.67 (1.60-3.17); Anion Gap 14.6 mmol/L (10.00-18.00); BUN/Creat Ratio 21.89 Ratio (12.00-20.00); Blood Urea Nitrogen 19.7 mg/dL (9.0-27.0); Calcium 9.6 mg/dL (8.7-10.3); Carbon Dioxide 24.4 mmol/L (20.0-27.5); Globulin 2.7 g/dL (1.6-3.3); Potassium 4.5 mmol/L (3.5-5.5); Total Bilirubin 0.5 mg/dL (0.30-1.20); Total Protein 7.2 g/dL (6.2-8.2)
[2021-11-16 20:14] LABS: Appearance,Urine Clear (Clear); Bilirubin,Urine Negative (Negative); Blood,Urine Negative (Negative); Color,Urine Yellow (Yellow); Ketones,Urine Negative (Negative); Nitrite,Urine Positive (Negative); Specific Gravity,Urine 1.022 (1.001-1.030); Urobilinogen,Urine 0.2 (0.2,1.0)
[2021-11-16 20:21] LABS: Bacteria,Urine 3+ /HPF (None Seen)
== END | disposition home or self-care (01) ==
LOC: LABPAT 09:52
PROVIDERS: ATTEND Urology
DX: Z01.812 Encounter for preprocedural laboratory examination (principal); D41.01 Neoplasm of uncertain behavior of right kidney
CPT/HCPCS: 36415; 80053; 81001; 85025; 87077; 87086; 87186

== ENCOUNTER 2021-11-24 05:46 | Inpatient (IN) | payer MEDICARE, OTHER ==
--- NOTE | 2021-11-23 15:26 | P.HPIHPCON ---
History of Present Illness H&P Date: 11/23/21 Chief Complaint: right renal mass This is an 76-year-old female with history of a 3.5 cm right sided renal mass. Had a prolonged discussion with her and her family about the option of observation versus excision. The risk and the benefit of each approach was discussed in detail. At this time she wants to proceed with a excision of the mass. I discussed with her the mass is amenable to a partial nephrectomy. Discussed with her the risk which includes but not limited to bleeding, infection, injury to nearby organs which includes but not limited to the liver, bowel. Discussed also the potential of conversion to a radical nephrectomy. Discussed the potential of needing hemodialysis especially if radical nephrectomy was performed. Discussed with him given her age and cardiac history she's at an increased risk of medical complication which includes but not panda ited to heart attack, stroke, blood clots and even loss of life. She understood all the risk and agreed to proceed Consent for Procedure: I have explained the operation/procedure to the patient, including the risks, benefits, side effects, alternative therapies (including not receiving the proposed treatment or service), the likelihood of the patient achieving his/her goals, and potential recuperation problems for the procedure/sedation/analgesia, as well as any blood products, if indicated. I also explained to the patient the risks, benefits and side effects of the alternatives, as well as the risks related to not receiving the proposed procedure, care, treatment, or services. Past Medical History Past Medical History: Diabetes Mellitus, Eye Disorder, Hyperlipidemia, Hypertension, Myocardial Infarction (NM) Additional Past Medical History / Comment(s): HEART MURMUR. mass right kidney, hx migraines, macular degeneration,currently on antibiotic for UTI Last Myocardial Infarction Date:: April 2021 History of Any Multi-Drug Resistant Organisms: None Reported Past Surgical History: Appendectomy, Back Surgery, Breast Surgery, Cholecystectomy, Heart Catheterization With Stent, Hysterectomy, Orthopedic Surg alfonso Additional Past Surgical History / Comment(s): "NECK LAMINECTOMY". LEFT BREAST BIOPSY, 2 cardiac stents, left shoulder rotator cuff, rt cataract Past Anesthesia/Blood Transfusion Reactions: No Reported Reaction Date of Last Stent Placement:: April 2021 Smoking Status: Never smoker - Past Family History Mother Additional Family Medical History / Comment(s): "HEART PROBLEMS". BRAIN ANEURYSM. Father Family Medical History: Myocardial Infarction (NM) Medications and Allergies Home Medications Medication Instructions Recorded Confirmed Type Glimepiride [Amaryl] 4 mg PO DAILY 05/04/21 11/22/21 History amLODIPine BESYLATE/BENAZEPRIL 1 cap PO DAILY 05/04/21 11/22/21 History [amLODIPine BESYLATE/BENAZEPRIL 10-40 mg] Aspirin 81 mg PO DAILY 30 Days #30 05/11/21 11/22/21 Rx Clopidogrel [Plavix] 75 mg PO DAILY 06/22/21 11/22/21 History Empagliflozin [Jardiance] 10 mg PO DAILY 06/22/21 11/22/21 History Metoprolol Succinate (ER) [Toprol 12.5 mg PO HS 06/22/21 11/22/21 History XL] Nitroglycerin Sl Tabs [Nitrostat] 0.4 mg SUBLINGUAL Q5M PRN 06/22/21 11/22/21 History Atorvastatin [Lipitor] 80 mg PO HS 11/22/21 11/22/21 History Cephalexin [Keflex] 500 mg PO Q12HR 11/22/21 11/22/21 History Healty Eyes 1 tab PO DAILY 11/22/21 11/22/21 History metFORMIN HCL [Metformin HCl] 1,000 mg PO BID 11/22/21 11/22/21 History Allergies Allergy/AdvReac Type Severity Reaction Status Date / Time enalaprilat [From Vasotec] Allergy Anaphylaxis Verified 11/22/21 10:04 Surgical - Exam - General no distress, no pain - Eyes normal ocular movement, no pale - ENT normal nares, normal mucosa - Respiratory normal expansion, normal respiratory effort - Abdomen Abdomen: soft, non tender Assessment and Plan Assessment: -OR for right sided partial nephrectomy
[2021-11-24] MEDS ORDERED: ONDANSETRON 4 MG/2 ML VIAL IVP ONE (06:08)
[2021-11-24] MEDS ORDERED: DEXAMETHASONE SOD PHOSPHATE 4 MG/ML 1 ML VIAL IV ONE (06:08)
[2021-11-24 06:37] LABS: Glucose,Whole Blood 129 mg/dL (70-110)
[2021-11-24] MEDS ORDERED: LACTATED RINGERS 1,000 ML IV ONE ×3 (06:40→11:01)
[2021-11-24] MEDS ORDERED: fentaNYL (PF) 50 MCG/ML 2 ML AMP IVP ONE (07:11)
[2021-11-24] MEDS ORDERED: MIDAZOLAM 2 MG/2 ML VIAL IVP ONE (07:11)
[2021-11-24] MEDS ORDERED: NEOSTIGMINE 1 MG/ML 10 ML VIAL ONE (07:25)
[2021-11-24] MEDS ORDERED: SODIUM CHLORIDE 0.9% (PF) 10 ML VIAL ONE (07:25)
[2021-11-24] MEDS ORDERED: ROPIVACAINE 5 MG/ML 30 ML VIAL ONE (07:25)
[2021-11-24] MEDS ORDERED: GLYCOPYRROLATE 0.2 MG/ML 2 ML VIAL ONE (07:25)
[2021-11-24] MEDS ORDERED: ROCURONIUM 10 MG/ML (5 ML VIAL) IV ONE (07:25)
[2021-11-24] MEDS ORDERED: LIDOCAINE 2% INJ 20 MG/ML (2 ML VIAL) ONE (07:25)
[2021-11-24] MEDS ORDERED: SUCCINYLCHOLINE CHLORIDE 200 MG/10 ML VIAL IV ONE (07:25)
[2021-11-24] MEDS ORDERED: fentaNYL (PF) 50 MCG/ML 2 ML AMP ONE (07:25)
[2021-11-24] MEDS ORDERED: PROPOFOL 10 MG/ML 20 ML VIAL IV ONE (07:25)
[2021-11-24] MEDS ORDERED: MANNITOL 25% 12.5 GM/50 ML VIAL ONE (07:25)
[2021-11-24] MEDS ORDERED: ONDANSETRON 4 MG/2 ML VIAL ONE (07:25)
[2021-11-24] MEDS ORDERED: PHENYLEPHRINE-0.9% NACL SYG 1,000 MCG/10 ML SYRINGE ONE (07:25)
[2021-11-24] MEDS ORDERED: NITROGLYCERIN SL TABS 0.4 MG TAB SUBLINGUAL PRN (07:41)
[2021-11-24] MEDS ORDERED: BUPIVACAINE (PF) 0.5% 30 ML VIAL SQ ONE ×2 (08:24→11:04)
--- NOTE | 2021-11-24 11:02 | P.OP ---
Date of Procedure: 11/24/21 Preoperative Diagnosis: right renal mass Postoperative Diagnosis: same Procedure(s) Performed: right robotic partial nephrectomy, extensive lysis of adhesion, intraoperative ultrasound Implants: none Anesthesia: ANGELA Surgeon: Juvenal Del Cid Manager Gallery #1: Juan Antonio Cruz Estimated Blood Loss (ml): 75 Pathology: other (Right renal mass) Condition: stable Disposition: PACU Indications for Procedure: This is an 76-year-old female with history of a 3.5 cm right sided renal mass. Had a prolonged discussion with her and her family about the option of observation versus excision. The risk and the benefit of each approach was discussed in detail. At this time she wants to proceed with a excision of the mass. I discussed with her the mass is amenable to a partial nephrectomy. Discussed with her the risk which includes but not limited to bleeding, infection, injury to nearby organs which includes but not limited to the liver, bowel. Discussed also the potential of conversion to a radical nephrectomy. Discussed the potential of needing hemodialysis especially if radical nephrectomy was performed. Discussed with him given her age and cardiac history she's at an increased risk of medical complication which includes but not limited to heart attack, stroke, blood clots and even loss of life. She understood all the risk and agreed to proceed Description of Procedure: The patient was taken to the operating room . General anesthesia was induced. She was prepped and draped in sterile fashion, she was placed in modified flank position . All pressure points were padded. The abdominal insufflation was achieved with the Veress needle. A 8 mm camera port was placed, away from the previous cholecystectomy incision. Next laparoscopy was performed showed extensive adhesion along the right upper quadrant, the omentum was adhered to the sidewall. An additional 8 mm robotic port was placed in the lower quadrant. Using the Harmonic LigaSure adhesions were taken down, ensuring cautery was not used near bowel. Approximately 45 minutes were spent lysing adhesions. after Adhesions were taken down Robotic trocars and community program assistant ports were placed under direct vision. 5 mm port was placed, and the liver was retracted using the liver retractor. The robot was docked into place. The colon was mobilized medially by incising along the white line of Toldt. Next the duodenum was kocherized.. . At this time the gonadal vessel and vena cava was visualized. Next after the psoas plane was developed anteriorly and the ureter was identified.The ureter and gonadal vessel was retracted anteriorly off the psoas muscle. Next the renal artery was identified,. This was dissected in preparation for clamping. Of note patient had a single artery and 2 vein. After the hilum was dissected attention was then carried to the tumor. The kidney was defatted. d. At this point the tumor was visualized at all the edges could clearly be defined.. Next 3 bulldogs were applied to the renal artery, the vein was kept open. Next the tumor was excised using the monopolar scissors. Areas of bleeding was controlled using point cautery. Given the depth of tumor, there was entry into the collecting system. Next the defect was closed in 2 layers using the 3-0V lock for the inner layer, the collecting system was repaired using 30V lock. and 2-0 Vlock for outer layer. sliding clip technique was used. A total of 5 2-0 Vlocks were used for the outer layer. At this point the clamp was removed, total clamp time was approximately 28 minutes. There was no evidence of bleeding. Next hemostatic agents were applied to the defect. Next the kidney was retroperitonealized. Using 3-0 Vicryl stitches. Next a FUNMI drain was placed through the right lower quadrant port incision. Next the robot was undocked and-assisted incision was extended and the specimen was extracted. The fascia was closed using #1 PDS, in figure of 8 fashion. Skin was closed with subcuticular sutures and dermabond. The patient was awoken from general anesthesia in stable condition. Please refer to the final pathology report for final diagnosis
[2021-11-24] MEDS: HYDROmorphone 0.5 MG/0.5 ML SYRINGE IVP PRN ×2 (11:45→12:03)
--- NOTE | 2021-11-24 12:22 | P.ANPRN ---
Procedure Note - Anesthesia - Nerve Block Performed Bilateral Erector Spinae Single Time Out Performed: Yes ([id number]) Date of Procedure: 11/24/21 Procedure Start Time: 07:11 Procedure Stop Time: 07:15 Location of Patient: PreOp Indication: Acute Post-Operative Pain, Requested by Surgeon Specifically requested for management of pain by DrDaja: Juvenal Del Cid Sedation Type: Sedate with meaningful contact maintained Preparation: Sterile Prep Position: Supine Catheter: None Needle Types: Pajunk Needle Gauge: 21 Ultrasound used to visualize needle placement: Yes Ultrasound used to observe medication spread: Yes Injectate: 0.5% Ropivacaine (see comment for volume) (15cc + 5cc nacl pf each side) Blood Aspirated: No Pain Paresthesia on Injection Noted: No Resistance on Injection: Normal Image Stored and Saved: Yes Events: Uneventful and Well Tolerated
[2021-11-24 13:43] LABS: Glucose,Whole Blood 280 mg/dL (70-110)
[2021-11-24] MEDS ORDERED: INSULIN ASPART (NovoLOG) 100 UNIT/ML VIAL SQ ONE (13:44)
[2021-11-24] MEDS: GLIMEPIRIDE 4 MG TAB PO SCH ×2 (14:44→17:02)
[2021-11-24] MEDS: DAPAGLIFLOZIN PROPANEDIOL 5 MG TABLET PO SCH ×2 (14:44→17:02)
[2021-11-24] MEDS: metFORMIN 500 MG TAB PO SCH ×2 (14:44→21:29)
[2021-11-24] MEDS: methocarbamoL 750 MG TAB PO SCH ×3 (14:45→21:29)
[2021-11-24] MEDS: HEPARIN SODIUM,PORCINE/PF 5,000 UNIT/0.5 ML SYRINGE SQ SCH ×2 (15:38→23:54)
[2021-11-24] MEDS: CEPHALEXIN 500 MG CAP PO SCH ×2 (15:46→21:29)
[2021-11-24] MEDS: HYDROmorphone 1 MG/ML 1 ML SYRINGE IVP PRN ×2 (15:46→20:21)
[2021-11-24 16:28] LABS: Glucose,Whole Blood 207 mg/dL (70-110)
[2021-11-24] MEDS: LACTATED RINGERS 1,000 ML IV SCH (20:56)
[2021-11-24 21:09] LABS: Glucose,Whole Blood 164 mg/dL (70-110)
[2021-11-24] MEDS: ATORVASTATIN 80 MG TAB PO SCH (21:29)
[2021-11-24] MEDS: METOPROLOL SUCCINATE (ER) 25 MG TAB.ER.24H PO SCH (21:29)
[2021-11-25] MEDS: HYDROmorphone 1 MG/ML 1 ML SYRINGE IVP PRN ×4 (00:42→17:30)
[2021-11-25 07:06] LABS: Glucose,Whole Blood 91 mg/dL (70-110)
[2021-11-25] MEDS: metFORMIN 500 MG TAB PO SCH ×2 (07:37→21:38)
[2021-11-25] MEDS: CEPHALEXIN 500 MG CAP PO SCH ×2 (07:37→21:38)
[2021-11-25] MEDS: GLIMEPIRIDE 4 MG TAB PO SCH (07:37)
[2021-11-25] MEDS: HYDROcodone/APAP 5-325MG 1 EACH TAB PO PRN ×3 (07:39→23:45)
[2021-11-25] MEDS: DAPAGLIFLOZIN PROPANEDIOL 5 MG TABLET PO SCH (07:39)
[2021-11-25] MEDS: methocarbamoL 750 MG TAB PO SCH ×4 (07:39→21:38)
[2021-11-25] MEDS: HEPARIN SODIUM,PORCINE/PF 5,000 UNIT/0.5 ML SYRINGE SQ SCH ×3 (07:41→23:41)
[2021-11-25] MEDS: LACTATED RINGERS 1,000 ML IV SCH (07:44)
[2021-11-25 08:55] LABS: Basophils # (A) 0.02 X 10*3/uL (0.00-0.10); Basophils % (A) 0.1 %; Eosinophils # (A) 0.06 X 10*3/uL (0.04-0.35); Eosinophils % (A) 0.4 %; HCT 37.1 % (37.2-46.3); HGB 12.2 g/dL (12.0-15.0); Immature Grans, Automated 0.7 %; Lymphocytes # (A) 1.07 X 10*3/uL (0.90-5.00); Lymphocytes % (A) 7.8 %; MCH 28.8 pg (27.0-32.0); MCHC 32.9 g/dL (32.0-37.0); MCV 87.5 fL (80.0-97.0); Mean Platelet Volume 10.2 fL (9.5-12.2); Monocytes # (A) 0.96 X 10*3/uL (0.20-1.00); NRBC Per 100 WBC 0 /100 WBCS (0.0-0.0); Neutrophils # (A) 11.44 X 10*3/uL (1.80-7.70); Platelet Count 186 X 10*3/uL (140-440); RBC 4.24 X 10*6/uL (4.10-5.20); RDW 15.4 % (11.5-14.5); WBC 13.64 X 10*3/uL (4.50-10.00)
[2021-11-25] MEDS ORDERED: amLODIPine 10 MG TAB PO SCH (09:00)
[2021-11-25] MEDS ORDERED: lisinopriL 20 MG TAB PO SCH (09:00)
[2021-11-25 11:12] LABS: Glucose,Whole Blood 113 mg/dL (70-110)
--- NOTE | 2021-11-25 11:13 | P.PN ---
Subjective Progress Note Date: 11/25/21 Principal diagnosis: Right renal mass This is an 76-year-old female with history of a 3.5 cm right sided renal mass. She is POD #1 from a right robotic partial nephrectomy with extensive lysis of adhesions. Laprocopic sites clean and dry. She is afebrile. She is tolerating a regular diet. Denies nausea or vomiting. Pain controlled with current regimen, will continue. Abdominal binder may be applied for confort. FUNMI drain with minimal sanginous output, will leave in until tomorrow. The plan to remove the tucker catheter and encourage ambulation. Anticipate discharge in the next 24 hours. Objective - Vital Signs Vital signs: Vital Signs Temp 98.4 F 11/25/21 07:07 Pulse 61 11/25/21 07:07 Resp 15 11/25/21 08:04 BP 140/64 11/25/21 07:07 Pulse Ox 94 L 11/25/21 07:32 FiO2 Intake & Output 11/24/21 11/25/21 11/25/21 18:59 06:59 18:59 Intake Total 1730 Output Total 1205 2500 Balance 525 -2500 Weight 73.1 kg Intake: IV 1650 Intake, IV Titration 80 Amount Lactated Ringers 1,000 ml 80 @ 20 mls/hr IV .Q24H [facility] Rx#:[id number] Output: Drainage 30 Abdomen 30 Urine 1150 2500 Estimated Blood Loss 25 Other: Voiding Method Indwelling Catheter Indwelling Catheter - Exam - General no distress - Eyes normal ocular movement, no pale - ENT normal nares, normal mucosa - Respiratory normal expansion, normal respiratory effort - Abdomen Abdomen: soft, mild tenderness - Labs CBC & Chem 7: 11/25/21 05:48 Labs: Abnormal Lab Results - Last 24 Hours (Table) 11/24/21 11/24/21 11/24/21 Range/Units 13:39 16:27 21:07 WBC (4.50-10.00) X 10*3/uL Hct (37.2-46.3) % RDW (11.5-14.5) % Immature Gran # (0.00-0.04) X 10*3/uL Neutrophils # (1.80-7.70) X 10*3/uL POC Glucose (mg/dL) 280 H 207 H 164 H (70-110) mg/dL 11/25/21 Range/Units 05:48 WBC 13.64 H (4.50-10.00) X 10*3/uL Hct 37.1 L (37.2-46.3) % RDW 15.4 H (11.5-14.5) % Immature Gran # 0.09 H (0.00-0.04) X 10*3/uL Neutrophils # 11.44 H (1.80-7.70) X 10*3/uL POC Glucose (mg/dL) (70-110) mg/dL Assessment and Plan (1) Right renal mass Current Visit: Yes Status: Acute Code(s): N28.89 - OTHER SPECIFIED DISORDERS OF KIDNEY AND URETER SNOMED Code(s): 186927817 Plan: Impression and plan of care have been directed as dictated by the signing physician. Divine Dorantes nurse practitioner acting as scribe for signing physician. Divine Dorantes [facility] Palliative Care/Urology [facility] [id number] Email: [email or web address] I personally performed and participated in the history, physical, the decision making, I agree with the assessment and plan of FLOOR CARE TECHNICIAN Time with Patient: Less than 30
[2021-11-25] MEDS: AMLODIPINE BENAZEPRIL PO SCH (11:59)
[2021-11-25 16:28] LABS: Glucose,Whole Blood 112 mg/dL (70-110)
[2021-11-25] MEDS: METOPROLOL SUCCINATE (ER) 25 MG TAB.ER.24H PO SCH (21:37)
[2021-11-25] MEDS: ATORVASTATIN 80 MG TAB PO SCH (21:38)
[2021-11-25 22:39] LABS: Glucose,Whole Blood 111 mg/dL (70-110)
[2021-11-26] MEDS: LACTATED RINGERS 1,000 ML IV SCH (05:37)
[2021-11-26 06:52] LABS: Glucose,Whole Blood 56 mg/dL (70-110)
[2021-11-26 07:24] LABS: Glucose,Whole Blood 130 mg/dL (70-110)
[2021-11-26] MEDS: HYDROcodone/APAP 5-325MG 1 EACH TAB PO PRN ×2 (08:41→20:34)
--- NOTE | 2021-11-26 09:37 | XR ---
EXAMINATION TYPE: XR chest 2V DATE OF EXAM: 11/26/2021 COMPARISON: 05/04/2021 HISTORY: Shortness of breath TECHNIQUE: Frontal and lateral views of the chest are obtained. FINDINGS: There has been interval development of a partial consolidative opacity in the right middle lobe and i n the left lower lobe. There are small bilateral pleural effusions.. The heart size and pulmonary vasculature are normal. The osseous structures are intact. IMPRESSION: Interval development of bilateral lung airspace infiltrates most consistent with pneumonia. Clinical correlation short-term follow-up to resolution is recommended.
[2021-11-26] MEDS: HEPARIN SODIUM,PORCINE/PF 5,000 UNIT/0.5 ML SYRINGE SQ SCH ×2 (10:27→17:47)
[2021-11-26] MEDS: GLIMEPIRIDE 4 MG TAB PO SCH (10:28)
[2021-11-26] MEDS: DAPAGLIFLOZIN PROPANEDIOL 5 MG TABLET PO SCH (10:28)
[2021-11-26] MEDS: AMLODIPINE BENAZEPRIL PO SCH (10:28)
[2021-11-26] MEDS: metFORMIN 500 MG TAB PO SCH ×2 (10:28→20:34)
[2021-11-26] MEDS: methocarbamoL 750 MG TAB PO SCH ×3 (10:28→17:47)
[2021-11-26] MEDS: CEPHALEXIN 500 MG CAP PO SCH (10:30)
--- NOTE | 2021-11-26 11:16 | P.PN ---
Subjective Progress Note Date: 11/26/21 Pain improved this morning, but still requiring oxygen on 5 L, and complains of shortness of breath. She is hemodynamically stable. Having some flank pain, but tolerable. Ambulating and voiding without issues Objective - Vital Signs Vital signs: Vital Signs Temp 98.0 F 11/26/21 07:42 Pulse 66 11/26/21 07:42 Resp 17 11/26/21 07:42 BP 117/62 11/26/21 07:42 Pulse Ox 91 L 11/26/21 07:42 FiO2 Intake & Output 11/25/21 11/26/21 11/26/21 18:59 06:59 18:59 Output Total 1530 40 Balance -1530 -40 Output: Drainage 30 40 Abdomen 30 40 Urine 1500 Other: Voiding Method Indwelling Catheter Indwelling Catheter # Voids 3 - Constitutional General appearance: Present: no acute distress - Gastrointestinal General gastrointestinal: Present: soft. Absent: distended, tenderness - Psychiatric Psychiatric: Present: A&O x's 3 - Labs CBC & Chem 7: 11/25/21 05:48 Labs: Abnormal Lab Results - Last 24 Hours (Table) 11/25/21 11/25/21 11/26/21 Range/Units 16:27 22:39 06:50 POC Glucose (mg/dL) 112 H 111 H 56 L (70-110) mg/dL 11/26/21 Range/Units 07:23 POC Glucose (mg/dL) 130 H (70-110) mg/dL Assessment and Plan Assessment: Postoperative day #2 status post right partial nephrectomy. Patient is having shortness of breath and oxygen requirement. Chest x-ray this a.m. showed a possible pneumonia -We'll consult internal medicine for medical management. -Continue incentive spirometer -Repeat BMP and CBC -We'll Hep-Lock her IV fluid (1) Right renal mass Current Visit: Yes Status: Acute Code(s): N28.89 - OTHER SPECIFIED DISORDERS OF KIDNEY AND URETER SNOMED Code(s): 473845408
[2021-11-26 11:26] LABS: Glucose,Whole Blood 159 mg/dL (70-110)
[2021-11-26] MEDS: IPRATROPIUM-ALBUTEROL 3 ML NEB INHALATION SCH ×3 (11:51→20:02)
[2021-11-26 11:59] LABS: Basophils % (A) 0 %; Eosinophils # (A) 0.2 k/uL (0-0.7); Eosinophils % (A) 1 %; HCT 36.9 % (34.0-46.0); HGB 12.4 gm/dL (11.4-16.0); Lymphocytes % (A) 7 %; MCH 28.8 pg (25.0-35.0); MCHC 33.6 g/dL (31.0-37.0); MCV 85.9 fL (80.0-100.0); Mean Platelet Volume 8.4; Monocytes # (A) 0.7 k/uL (0-1.0); Monocytes % (A) 5 %; Neutrophils # (A) 11.6 k/uL (1.3-7.7); Neutrophils % (A) 85 %; Platelet Count 172 k/uL (150-450); RDW 15.5 % (11.5-15.5); WBC 13.7 k/uL (3.8-10.6)
[2021-11-26 12:07] LABS: African American GFR (CKD) 57 (>60 ml/min/1.73 sqM); Anion Gap 13 mmol/L; Blood Urea Nitrogen 28 mg/dL (7-17); Calcium 9.1 mg/dL (8.4-10.2); Carbon Dioxide 20 mmol/L (22-30); Chloride 101 mmol/L (98-107); Glucose 119 mg/dL (74-99); Non-African American GFR(CKD) 50 (>60 ml/min/1.73 sqM); Potassium 4.4 mmol/L (3.5-5.1); Sodium 134 mmol/L (137-145)
[2021-11-26] MEDS: PIPERACILLIN-TAZOBACTAM 3.375 GM in SODIUM CHLORIDE 0.9% 100 ML IVPB SCH ×2 (12:18→20:33)
[2021-11-26 16:30] LABS: Glucose,Whole Blood 79 mg/dL (70-110)
[2021-11-26] MEDS: ATORVASTATIN 80 MG TAB PO SCH (20:34)
[2021-11-26] MEDS: METOPROLOL SUCCINATE (ER) 25 MG TAB.ER.24H PO SCH (20:35)
[2021-11-26] MEDS: IPRATROPIUM-ALBUTEROL 3 ML NEB INHALATION PRN (21:15)
[2021-11-26 23:11] LABS: Glucose,Whole Blood 58 mg/dL (70-110)
[2021-11-26 23:35] LABS: Glucose,Whole Blood 94 mg/dL (70-110)
[2021-11-27] MEDS: methocarbamoL 750 MG TAB PO SCH ×5 (00:30→22:40)
[2021-11-27] MEDS: HEPARIN SODIUM,PORCINE/PF 5,000 UNIT/0.5 ML SYRINGE SQ SCH ×4 (00:30→23:03)
--- NOTE | 2021-11-27 00:49 | CT ---
EXAMINATION TYPE: CT angio chest DATE OF EXAM: 11/26/2021 COMPARISON: 04/06/2021 HISTORY: recent cysto procedure, elevated d dimer, sob CT DLP: 342.3 mGycm Automated exposure control for dose reduction was used. CONTRAST: Performed with IV Contrast, patient injected with 70 mL of Isovue 370. Images obtained from the thoracic inlet to the diaphragm with the IV contrast. There are 3-D post pro cessed images. There is patchy linear infiltrate and atelectasis at the lung bases bilaterally. Heart is enlarged. N o pericardial effusion. There is mild elevation of the right diaphragm. There are no hilar masses. No mediastinal adenopathy. Thoracic aorta is atheromatous. There is some s purring in the thoracic spine. There is no filling defect in the pulmonary arteries. Thoracic aorta is intact. No aneurysm or dissec tion. IMPRESSION: There is infiltrate and atelectasis at both lung bases which is new compared to the old exam. No evid ence of pulmonary embolism.
[2021-11-27] MEDS: LACTATED RINGERS 1,000 ML IV SCH (05:07)
[2021-11-27] MEDS: PIPERACILLIN-TAZOBACTAM 3.375 GM in SODIUM CHLORIDE 0.9% 100 ML IVPB SCH ×3 (05:10→19:27)
[2021-11-27 07:13] LABS: Glucose,Whole Blood 82 mg/dL (70-110)
[2021-11-27 08:11] LABS: Basophils % (A) 0 %; Eosinophils # (A) 0.2 k/uL (0-0.7); Eosinophils % (A) 2 %; HCT 36.4 % (34.0-46.0); HGB 12.1 gm/dL (11.4-16.0); Lymphocytes % (A) 9 %; MCH 28.9 pg (25.0-35.0); MCHC 33.2 g/dL (31.0-37.0); MCV 87.2 fL (80.0-100.0); Mean Platelet Volume 9.6; Monocytes # (A) 0.8 k/uL (0-1.0); Monocytes % (A) 7 %; Neutrophils # (A) 8.9 k/uL (1.3-7.7); Neutrophils % (A) 81 %; Platelet Count 139 k/uL (150-450); RBC 4.17 m/uL (3.80-5.40); RDW 15.2 % (11.5-15.5); WBC 10.9 k/uL (3.8-10.6)
[2021-11-27] MEDS: IPRATROPIUM-ALBUTEROL 3 ML NEB INHALATION SCH ×4 (08:12→19:11)
[2021-11-27 08:16] LABS: African American GFR (CKD) 58 (>60 ml/min/1.73 sqM); Anion Gap 11 mmol/L; Blood Urea Nitrogen 22 mg/dL (7-17); Calcium 8.9 mg/dL (8.4-10.2); Carbon Dioxide 22 mmol/L (22-30); Chloride 103 mmol/L (98-107); Glucose 50 mg/dL (74-99); Non-African American GFR(CKD) 50 (>60 ml/min/1.73 sqM); Potassium 4.6 mmol/L (3.5-5.1); Sodium 136 mmol/L (137-145)
[2021-11-27] MEDS: metFORMIN 500 MG TAB PO SCH ×2 (08:29→20:23)
[2021-11-27] MEDS: HYDROcodone/APAP 5-325MG 1 EACH TAB PO PRN ×4 (08:29→22:40)
[2021-11-27] MEDS: AMLODIPINE BENAZEPRIL PO SCH (08:29)
[2021-11-27] MEDS: DAPAGLIFLOZIN PROPANEDIOL 5 MG TABLET PO SCH (08:30)
[2021-11-27] MEDS: GLIMEPIRIDE 4 MG TAB PO SCH (08:30)
--- NOTE | 2021-11-27 11:05 | CONS ---
CONSULTATION REASON FOR CONSULTATION: Respiratory distress, requested by Urology. HISTORY OF PRESENT ILLNESS: This is a 76-year-old woman with a past medical history of multiple medical problems, was admitted and the patient underwent right robotic partial nephrectomy by Dr. Del Cid. Last night the patient had some shortness of breath and hypoxia. Chest x-ray showed some left-sided pneumonia. D-dimer is elevated at 0.96. Patient admitted for further evaluation and treatment. There is no history of any fever, rigors, or chills. PAST MEDICAL HISTORY: Reviewed, include diabetes mellitus, hypertension. HOME MEDICATIONS: Reviewed include Norvasc, doses and rest of medication noted. ALLERGIES: Enalapril. FAMILY HISTORY: History of heart problems in the family. SOCIAL HISTORY: No history of smoking or alcohol. REVIEW OF SYSTEMS: A 14-point review is negative except as mentioned earlier. PHYSICAL EXAMINATION: VITAL SIGNS: Pulse 69, blood pressure 130/70, respirations 18, and pulse ox 91% on 5 L. HEENT: Conjunctivae normal. NECK: No jugular venous distention. RESPIRATIONS: Diminished at the basis, few scattered rhonchi and crackles. ABDOMEN: Soft status post surgery. LEGS: No edema. No swelling. NERVOUS SYSTEM: Nonfocal. LABORATORY DATA: WBC 13.8, D-dimer noted. Chest x-ray reviewed personally, showed significant bilateral pneumonia. ASSESSMENT: 1. Bilateral pneumonia with hypoxia. 2. Rule out pulmonary embolism. 3. Diabetes mellitus type 2. 4. Hypertension. 5. Hyperlipidemia. 6. History of recent nephrectomy. RECOMMENDATIONS: This is a 76-year-old woman who presented with multiple medical issues, I would recommend to continue current medications. Recommend broad-spectrum IV antibiotics, intensive bronchodilators and DVT prophylaxis. D-dimer and CT angio of the chest. I would recommend a COVID-19 testing also because of bilateral nature of the infiltrate. Guarded prognosis. Further recommendations, see orders for further details. MMODL / IJN: [id number] /
[2021-11-27 11:41] LABS: Glucose,Whole Blood 93 mg/dL (70-110)
--- NOTE | 2021-11-27 11:57 | P.PN ---
Subjective shortness of breath improved this am, but still requiring oxygen. CT PE is negative. Chest x-ray showed bilateral pneumonia. denies any flank pain, ambulating and voiding without issues Objective - Vital Signs Vital signs: Vital Signs Temp 98.2 F 11/27/21 08:00 Pulse 70 11/27/21 11:28 Resp 18 11/27/21 11:28 BP 163/76 11/27/21 08:00 Pulse Ox 100 11/27/21 08:12 FiO2 Intake & Output 11/26/21 11/27/21 11/27/21 18:59 06:59 18:59 Output Total 40 Balance -40 Output: Drainage 40 Abdomen 40 Other: Voiding Method Toilet # Voids 2 - Constitutional General appearance: Present: no acute distress - Psychiatric Psychiatric: Present: A&O x's 3 - Labs CBC & Chem 7: 11/27/21 06:11 11/27/21 06:11 Labs: Abnormal Lab Results - Last 24 Hours (Table) 11/26/21 11/26/21 11/26/21 Range/Units 11:11 11:11 14:23 WBC 13.7 H (3.8-10.6) k/uL Plt Count (150-450) k/uL Neutrophils # 11.6 H (1.3-7.7) k/uL D-Dimer 0.96 H (<0.60) mg/L FEU Sodium 134 L (137-145) mmol/L Carbon Dioxide 20 L (22-30) mmol/L BUN 28 H (7-17) mg/dL Creatinine 1.10 H (0.52-1.04) mg/dL Glucose 119 H (74-99) mg/dL POC Glucose (mg/dL) (70-110) mg/dL 11/26/21 11/27/21 11/27/21 Range/Units 23:10 06:11 06:11 WBC 10.9 H (3.8-10.6) k/uL Plt Count 139 L (150-450) k/uL Neutrophils # 8.9 H (1.3-7.7) k/uL D-Dimer (<0.60) mg/L FEU Sodium 136 L (137-145) mmol/L Carbon Dioxide (22-30) mmol/L BUN 22 H (7-17) mg/dL Creatinine 1.09 H (0.52-1.04) mg/dL Glucose 50 L (74-99) mg/dL POC Glucose (mg/dL) 58 L (70-110) mg/dL Assessment and Plan Assessment: Postoperative day #3 status post right partial nephrectomy. Patient developed shortness of breath and pneumonia post op, CT PE negative. shortness of breath improving compared to yesterday. Will keep in hospital for an additional day given her Shortness of breath and continued oxygen need -Continue incentive spirometer -will remove FUNMI this am -F/U on internal medicine recs (1) Right renal mass Status: Acute Code(s): N28.89 - OTHER SPECIFIED DISORDERS OF KIDNEY AND URETER SNOMED Code(s): 184278644
[2021-11-27 16:43] LABS: Glucose,Whole Blood 66 mg/dL (70-110)
[2021-11-27] MEDS: ATORVASTATIN 80 MG TAB PO SCH (20:23)
[2021-11-27] MEDS: METOPROLOL SUCCINATE (ER) 25 MG TAB.ER.24H PO SCH (20:23)
[2021-11-28] MEDS: PIPERACILLIN-TAZOBACTAM 3.375 GM in SODIUM CHLORIDE 0.9% 100 ML IVPB SCH ×3 (03:49→20:13)
[2021-11-28] MEDS: LACTATED RINGERS 1,000 ML IV SCH (05:00)
--- NOTE | 2021-11-28 06:54 | XR ---
EXAMINATION TYPE: XR chest 1V portable DATE OF EXAM: 11/28/2021 6:44 AM COMPARISON: Chest radiographs from 11/26/2021, CTA chest 11/26/2021 TECHNIQUE: XR chest 1V portable Frontal view of the chest. CLINICAL INDICATION:Female, 76 years old with history of pneumonia; FINDINGS: Lungs/Pleura: No pneumothorax or pleural effusion. Patchy bibasilar airspace opacities redemonstrated . Pulmonary vascularity: Unremarkable. Heart/mediastinum: Cardiomediastinal silhouette is unremarkable. Atherosclerotic calcifications are seen in the aorta. Musculoskeletal: No acute osseous pathology. IMPRESSION: Patchy bibasilar infiltrates redemonstrated.
[2021-11-28 06:58] LABS: Glucose,Whole Blood 173 mg/dL (70-110)
[2021-11-28] MEDS: IPRATROPIUM-ALBUTEROL 3 ML NEB INHALATION SCH ×4 (07:17→19:13)
[2021-11-28] MEDS ORDERED: AMIODARONE 360 MG in DEXTROSE 5% IN WATER 200 ML IV ONE ×2 (07:30)
[2021-11-28] MEDS ORDERED: DEXTROSE 5% IN WATER 100 ML with AMIODARONE 150 MG IV ONE (07:30)
[2021-11-28 07:43] LABS: Basophils # (A) 0.1 k/uL (0-0.2); Basophils % (A) 0 %; Eosinophils # (A) 0.3 k/uL (0-0.7); Eosinophils % (A) 3 %; HCT 37.4 % (34.0-46.0); HGB 12.5 gm/dL (11.4-16.0); Lymphocytes # (A) 0.7 k/uL (1.0-4.8); Lymphocytes % (A) 5 %; MCH 29.6 pg (25.0-35.0); MCHC 33.4 g/dL (31.0-37.0); MCV 88.5 fL (80.0-100.0); Mean Platelet Volume 8.3; Monocytes # (A) 0.6 k/uL (0-1.0); Monocytes % (A) 5 %; Neutrophils # (A) 11.4 k/uL (1.3-7.7); Neutrophils % (A) 87 %; Platelet Count 204 k/uL (150-450); RBC 4.23 m/uL (3.80-5.40); RDW 15.2 % (11.5-15.5); WBC 13.2 k/uL (3.8-10.6)
[2021-11-28 07:43] LABS: Glucose,Whole Blood 172 mg/dL (70-110)
[2021-11-28 08:07] LABS: ALT 115 U/L (4-34); AST 94 U/L (14-36); African American GFR (CKD) 49 (>60 ml/min/1.73 sqM); Albumin 3.3 g/dL (3.5-5.0); Albumin/Globulin Ratio 1.2; Alkaline Phosphatase 141 U/L (38-126); Anion Gap 12 mmol/L; Blood Urea Nitrogen 20 mg/dL (7-17); Calcium 8.6 mg/dL (8.4-10.2); Carbon Dioxide 22 mmol/L (22-30); Chloride 102 mmol/L (98-107); Globulin 2.7 g/dL; Glucose 173 mg/dL (74-99); Non-African American GFR(CKD) 43 (>60 ml/min/1.73 sqM); Potassium 4.9 mmol/L (3.5-5.1); Sodium 136 mmol/L (137-145); Total Bilirubin 1.2 mg/dL (0.2-1.3)
[2021-11-28] MEDS ORDERED: FUROSEMIDE 10 MG/ML 4 ML VIAL IV STA ×2 (08:18→17:06)
[2021-11-28] MEDS ORDERED: DEXTROSE 50% SYRINGE 50 ML IVP PRN ×2 (08:19)
--- NOTE | 2021-11-28 08:21 | P.CNPUL ---
History of Present Illness Consult date: 11/28/21 Reason for consult: dyspnea Chief complaint: shortness of breath History of present illness: This is a 76-year-old female patient of the transferred to the intensive care unit for increased shortness of breath. The patient was found to be in atrial fibrillation with rapid ventricular response and for that reason the patient got transferred to the ICU. The patient is currently postop day #4. The patient underwent a right partial nephrectomy. A CTA of the chest was done yesterday and the patient was found to have no evidence of any pulmonary embolism. Note that the patient was found to have a 3.5 cm right sided renal mass. Based on that, the patient was taken to the operating room for a nephrectomy. The panfilo sabillon is known to be having other comorbid conditions including hypertension, hyperlipidemia diabetes mellitus. The patient is also known to have CAD with previous IL. She has previous chronic catheterization and stenting.. This morning, the patient Got transferred to the intensive care unit the patient developed itchy fibrillation with rapid ventricular response. She is currently on the heart rate of 137, irregular with a blood pressure 113/75. She was placed on 100% nonrebreather facemask and her current pulse ox is 94%. The patient is also having some chest pain this morning. Morning chest pains. The patient is also having chest pain which is sternal, 6 out of 10 in severity. Cardiac enzymes are pending. EKG was done and it showed atrial fibrillation with a rapid ventricular response . I reviewed the EKG there is no significant ST segment changes. There is voltage criteria for LVH. There may be some inferior wall ST segment depression. The chest x-ray also showed some limited bibasilar pulmonary infiltrates along with some cardiomegaly. Lung volumes are essentially small. The patient is currently postoperative day #4. IV fluids are currently at KVO. The patient came in to the ICU and she was given amiodarone bolus initially at a dose of 150 mg of following that she was started on a maintenance of 1 mg/m. I also reviewed the CTA of the chest that was done on 11/27/2021. As mentioned, there is evidence of a pulmonary embolism. There is significant atelectatic changes in the lung bases bilaterally. No reported aspiration. She has an incentive spirometer at the bedside. In terms of her blood work, the patient's white cell count that is a 50 point the XII.5 and a platelet count of 204. Electrolytes from yesterday were all within normal limits with the B 20 creatinine 1.09. Sodium is 136. Cardiac enzymes are still pending. The patient is diabetic and she is on a combination of antihypertensive diabetic medication. She is on Dilaudid for pain control. She is also on IV Zosyn that was started 11/26/21 as an empiric antibiotic coverage.the patient had an echocardiogram on 05/05/2021 that showed segmental wall motion abnormalities involving the anterior wall, inferior wall of the septal wall. Ejection fraction was around 45-50%. The LV size was normal. No significant valvular abnormalities were noted. No significant pulmonary hyp ertension. Her previous cardiac catheterization was done in April 2021. She has undergone stenting to the LAD and subsequently to the circumflex. As such, the patient has stool coronary stents and the patient was receiving dual antiplatelet treatment on outpatient basis. Review of Systems Constitutional: Reports fatigue, Reports weakness Eyes: denies as per HPI, denies blurred vision, denies bulging eye, denies decreased vision, denies diplopia, denies discharge, denies dry eye, denies irritation, denies itching, denies pain, denies photophobia, denies loss of peripheral vision, denies loss of vision, denies tunnel vision/blind spots Ears: deny: decreased hearing, ear discharge, earache, tinnitus Ears, nose, mouth and throat: Reports as per HPI Breasts: absent: as per HPI, change in shape, gynecomastia, masses, nipple discharge, pain, skin changes, swelling Cardiovascular: Reports chest pain, Reports shortness of breath Respiratory: Reports as per HPI Gastrointestinal: Reports as per HPI Genitourinary: Reports as per HPI Menstruation: Reports as per HPI Musculoskeletal: Reports as per HPI Musculoskeletal: absent: ankle pain, ankle stiffness, ankle swelling, as per HPI, elbow pain, elbow stiffness, elbow swelling, foot pain, foot stiffness, foot swelling, hand pain, hand stiffness, hand swelling, hip pain, hip stiffness, hip swelling, knee pain, knee stiffness, knee swelling, shoulder pain, shoulder stiffness, shoulder swelling, wrist pain, wrist stiffness, wrist swelling Integumentary: Reports as per HPI Neurological: Reports as per HPI Psychiatric: Reports as per HPI Endocrine: Reports as per HPI Hematologic/Lymphatic: Reports as per HPI Allergic/Immunologic: Reports as per HPI Past Medical History Past Medical History: Coronary Artery Disease (CAD), Diabetes Mellitus, Eye Disorder, Hyperlipidemia, Hypertension, Myocardial Infarction ([place]) Additional Past Medical History / Comment(s): HEART MURMUR. mass right kidney, hx migraines, macular degeneration,currently on antibiotic for UTI Last Myocardial Infarction Date:: April 2021 History of Any Multi-Drug Resistant Organisms: None Reported Past Surgical History: Appendectomy, Back Surgery, Breast Surgery, Cholecystectomy, Heart Catheterization With Stent, Hysterectomy, Orthopedic Surgery Additional Past Surgical History / Comment(s): "NECK LAMINECTOMY". LEFT BREAST BIOPSY, 2 cardiac stents, left shoulder rotator cuff, rt cataract Past Anesthesia/Blood Transfusion Reactions: No Reported Reaction Date of Last Stent Placement:: April 2021 Past Psychological History: Anxiety Smoking Status: Never smoker Past Alcohol Use History: None Reported Past Drug Use History: None Reported - Past Family History Mother Additional Family Medical History / Comment(s): Aneurism Father Family Medical History: Myocardial Infarction ([place]) Medications and Allergies Home Medications Medication Instructions Recorded Confirmed Type Glimepiride [Amaryl] 4 mg PO DAILY 05/04/21 11/24/21 History amLODIPine BESYLATE/BENAZEPRIL 1 cap PO DAILY 05/04/21 11/24/21 History [amLODIPine BESYLATE/BENAZEPRIL 10-40 mg] Aspirin 81 mg PO DAILY 30 Days #30 05/11/21 11/24/21 Rx Clopidogrel [Plavix] 75 mg PO DAILY 06/22/21 11/24/21 History Empagliflozin [Jardiance] 10 mg PO DAILY 06/22/21 11/24/21 History Metoprolol Succinate (ER) [Toprol 12.5 mg PO HS 06/22/21 11/24/21 History XL] Nitroglycerin Sl Tabs [Nitrostat] 0.4 mg SUBLINGUAL Q5M PRN 06/22/21 11/24/21 History Atorvastatin [Lipitor] 80 mg PO HS 11/22/21 11/24/21 History Cephalexin [Keflex] 500 mg PO Q12HR 11/22/21 11/24/21 History Healty Eyes 1 tab PO DAILY 11/22/21 11/24/21 History metFORMIN HCL [Metformin HCl] 1,000 mg PO BID 11/22/21 11/24/21 History Allergies Allergy/AdvReac Type Severity Reaction Status Date / Time enalaprilat [From Vasotec] Allergy Anaphylaxis Verified 11/24/21 06:19 Physical Exam Vitals: Vital Signs Temp Pulse Pulse Pulse Resp BP Pulse Ox 11/28/21 07:04 7.7 F L 148 H 24 101/73 90 L 11/28/21 07:00 84 L 11/28/21 01:50 98.2 F 76 17 106/64 92 L 11/27/21 20:25 98.2 F 78 18 117/66 91 L 11/27/21 20:00 12 11/27/21 19:21 74 11/27/21 19:12 72 11/27/21 15:51 72 18 11/27/21 15:39 70 16 11/27/21 13:58 98.2 F 84 17 109/55 90 L 11/27/21 11:28 70 18 11/27/21 11:11 72 18 11/27/21 08:25 77 16 11/27/21 08:12 72 16 100 Intake and Output 11/27/21 11/28/21 11/28/21 22:59 06:59 14:59 Intake Total 150 Balance 150 Intake: Oral 150 Other: # Voids 4 General appearance the patient is in mild to moderate degree of respiratory distress currently 100% on rebreather facemask Head exam was generally normal. There was no scleral icterus or corneal arcus. Mucous membranes were moist. Neck was supple and without jugular venous distension, thyromegaly, or carotid bruits. Carotids were easily palpable bilaterally. There was no adenopathy. Lungs sounds are diminished in the patient's w has crackles within the lower lung goodrich bilaterally Heart sounds are irregular, consistent with the fibrillation with rapid ventricular response, no significant murmurs could be appreciated. Abdomen is soft. Bowel sounds are sluggish. Surgical wounds are dry and the patient has multiple surgical sides related to recent nephrectomy. Minimal direct tenderness. No rebound tenderness. No guarding. Examination of the extremities revealed easily palpable radial, femoral and pedal pulses. There was no cyanosis, clubbing or edema. Examination of the skin revealed no evidence of significant rashes, suspicious appearing nevi or other concerning lesions. Neurologically, the patient is awake and alert and the patient does not have any focal neurological deficit. Cranial nerves are essentially intact. Results - Laboratory Findings CBC and BMP: 11/28/21 07:34 11/27/21 06:11 PT/INR, D-dimer D-Dimer 0.96 mg/L FEU (<0.60) H 11/26/21 14:23 Abnormal lab findings: Abnormal Labs 11/24/21 11/24/21 11/24/21 06:35 13:39 16:27 WBC Hct RDW Plt Count Immature Gran # Neutrophils # Lymphocytes # D-Dimer Sodium Carbon Dioxide BUN Creatinine Glucose POC Glucose (mg/dL) 129 H 280 H 207 H 11/24/21 11/25/21 11/25/21 21:07 05:48 11:10 WBC 13.64 H Hct 37.1 L RDW 15.4 H Plt Count Immature Gran # 0.09 H Neutrophils # 11.44 H Lymphocytes # D-Dimer Sodium Carbon Dioxide BUN Creatinine Glucose POC Glucose (mg/dL) 164 H 113 H 11/25/21 11/25/21 11/26/21 16:27 22:39 06:50 WBC Hct RDW Plt Count Immature Gran # Neutrophils # Lymphocytes # D-Dimer Sodium Carbon Dioxide BUN Creatinine Glucose POC Glucose (mg/dL) 112 H 111 H 56 L 11/26/21 11/26/21 11/26/21 07:23 11:11 11:11 WBC 13.7 H Hct RDW Plt Count Immature Gran # Neutrophils # 11.6 H Lymphocytes # D-Dimer Sodium 134 L Carbon Dioxide 20 L BUN 28 H Creatinine 1.10 H Glucose 119 H POC Glucose (mg/dL) 130 H 11/26/21 11/26/21 11/26/21 11:25 14:23 23:10 WBC Hct RDW Plt Count Immature Gran # Neutrophils # Lymphocytes # D-Dimer 0.96 H Sodium Carbon Dioxide BUN Creatinine Glucose POC Glucose (mg/dL) 159 H 58 L 11/27/21 11/27/21 11/27/21 06:11 06:11 16:42 WBC 10.9 H Hct RDW Plt Count 139 L Immature Gran # Neutrophils # 8.9 H Lymphocytes # D-Dimer Sodium 136 L Carbon Dioxide BUN 22 H Creatinine 1.09 H Glucose 50 L POC Glucose (mg/dL) 66 L 11/28/21 11/28/21 11/28/21 06:57 07:34 07:41 WBC 13.2 H Hct RDW Plt Count Immature Gran # Neutrophils # 11.4 H Lymphocytes # 0.7 L D-Dimer Sodium Carbon Dioxide BUN Creatinine Glucose POC Glucose (mg/dL) 173 H 172 H - Diagnostic Findings Chest x-ray: image reviewed Assessment and Plan Plan: New onset itchy fibrillation with rapid ventricular response Chest pain with an underlying history of coronary artery disease, rule out und erlying angina versus chest pain related to the tachycardia induced by itchy fibrillation. EKG showing some ST segment depressions along the inferior leads. Acute hypoxic respiratory failure currently on 100% on with a facemask with development of lower lobe pulmonary infiltrates. No overt signs of congestion heart failure. Rule out pneumonia. The patient is currently on IV Zosyn History of nephrectomy, right sided for a renal mass and the patient is postoperative day #4. This was done robotically and the patient has the drain taken out history of coronary artery disease with previous stenting of the circumflex and lad diabetes mellitus hypertension hyperlipidemia macular degeneration plan give the patient 100% nonrebreather facemask Give the patient was on Lasix 40 mg IV push IV fluids to KVO Start The patient IV heparin as long as this is acceptable by urology The patient was given a bolus of amiodarone and the patient will be started on amiodarone loading 1 mg/m Electrolytes are pretty much stable. We'll check a magnesium level and maintain a magnesium level above 2 Check troponins Check procalcitonin level May need to repeat an echocardiogram Cardiology consultation Provide the patient is an inspirometer Patient is passing flatness and there is no indication for underlying ileus Continue with bedrest for now Stop the oral hypoglycemic medication and stop the antihypertensive medication also and use only sliding scale insulin coverage We'll continue to follow
[2021-11-28 08:58] LABS: Basophils # (A) 0.07 X 10*3/uL (0.00-0.10); Basophils % (A) 0.6 %; Eosinophils # (A) 0.41 X 10*3/uL (0.04-0.35); Eosinophils % (A) 3.3 %; HGB 11.3 g/dL (12.0-15.0); Immature Grans, Automated 1.2 %; Lymphocytes # (A) 0.92 X 10*3/uL (0.90-5.00); Lymphocytes % (A) 7.5 %; MCH 28.6 pg (27.0-32.0); MCHC 31.4 g/dL (32.0-37.0); MCV 91.1 fL (80.0-97.0); Mean Platelet Volume 10.8 fL (9.5-12.2); Monocytes % (A) 7.4 %; NRBC Per 100 WBC 0 /100 WBCS (0.0-0.0); Neutrophils # (A) 9.79 X 10*3/uL (1.80-7.70); Platelet Count 204 X 10*3/uL (140-440); RBC 3.95 X 10*6/uL (4.10-5.20); RDW 15.3 % (11.5-14.5); WBC 12.24 X 10*3/uL (4.50-10.00)
[2021-11-28] MEDS: methocarbamoL 750 MG TAB PO SCH ×3 (09:00→17:29)
[2021-11-28 09:26] LABS: African American GFR (CKD) 51.6 (60.0-200.0); Anion Gap 10.5 mmol/L (10.00-18.00); BUN/Creat Ratio 16.5 Ratio (12.00-20.00); Blood Urea Nitrogen 19.8 mg/dL (9.0-27.0); Calcium 8.8 mg/dL (8.7-10.3); Carbon Dioxide 24.5 mmol/L (20.0-27.5); Non-African American GFR(CKD) 44.5 (60.0-200.0); Potassium 4.2 mmol/L (3.5-5.5)
[2021-11-28 09:34] LABS: Glucose,Whole Blood 156 mg/dL (70-110)
--- NOTE | 2021-11-28 09:35 | P.CRDCN ---
History of Present Illness Consult date: 11/28/21 Consult reason: atrial fibrillation History of present illness: The patient is a 76-year-old female who follows in the office with Dr. Maciel. She was initially admitted to the hospital and 11/23/21 for right robotic partial nephrectomy in lysis of adhesions. The patient was transferred to the ICU early this morning after converting to atrial fibrillation with rapid ventricular response. Current heart rate on telemetry is in the 130s to 140s. She is currently on a nonrebreather mask with O2 saturations greater than 92. Computed tomography scan of the chest shows no evidence of pulmonary embolism PAST MEDICAL HISTORY: Diabetes mellitus, hypertension, coronary artery disease REVIEW OF SYSTEMS: No fever or chills. No cough or expectoration. Patient denies headache, dizziness, blurred vision, double vision. Patient denies any stomach discomfort. No nausea, vomiting. No hematochezia. No hematemesis. Denies any black stools or blood in his stools. Denies dysuria or hematuria. No muscle weakness or numbness. Positive for weakness and fatigue. No chest pain or chest pressure. PHYSICAL EXAMINATION: This is a 76-year-old female in mild distress at the time of my examination. Pale and diaphoretic. HEENT: Head is atraumatic, normocephalic. Pupils are equal, round. Sclerae anicteric. Conjunctivae are clear. Mucous membranes of the mouth are moist. Neck is supple. There is no jugular venous distention. No carotid bruit is heard. CHEST EXAMINATION: Lungs are clear to auscultation. No chest wall tenderness is noted on palpation or with deep breathing. HEART EXAMINATION: Irregular rate and rhythm. S1, S2 heard. No murmurs, gallops or rub. ABDOMEN: Soft, nontender. Bowel sounds are heard. No organomegaly noted. EXTREMITIES: N no evidence of peripheral edema and no calf tenderness noted. NEUROLOGIC EXAMINATION: Patient is awake, alert and oriented x3. FINAL ASSESSMENT AND PLAN: A. fib with RVR Elevated troponin, unclear significance Status post nephrectomy, postop day 4 History of coronary artery disease History of diabetes mellitus History of hypertension PLAN: Amiodarone 300 mg bolus over one hour Switch metoprolol to tartrate an increase to 50 mg twice daily Further recommendations will be based on clinical course I am dictating on behalf of Dr Erwin Olivia's history/physical and assessment/plan. Past Medical History Past Medical History: Coronary Artery Disease (CAD), Diabetes Mellitus, Eye Disorder, Hyperlipidemia, Hypertension, Myocardial Infarction ([place]) Additional Past Medical History / Comment(s): HEART MURMUR. mass right kidney, hx migraines, macular degeneration,currently on antibiotic for UTI Last Myocardial Infarction Date:: April 2021 History of Any Multi-Drug Resistant Organisms: None Reported Past Surgical History: Appendectomy, Back Surgery, Breast Surgery, Cholecystectomy, Heart Catheterization With Stent, Hysterectomy, Orthopedic Brayden araceli Additional Past Surgical History / Comment(s): "NECK LAMINECTOMY". LEFT BREAST BIOPSY, 2 cardiac stents, left shoulder rotator cuff, rt cataract Past Anesthesia/Blood Transfusion Reactions: No Reported Reaction Date of Last Stent Placement:: April 2021 Past Psychological History: Anxiety Smoking Status: Never smoker Past Alcohol Use History: None Reported Past Drug Use History: None Reported - Past Family History Mother Additional Family Medical History / Comment(s): Aneurism Father Family Medical History: Myocardial Infarction ([place]) Medications and Allergies Home Medications Medication Instructions Recorded Confirmed Type Glimepiride [Amaryl] 4 mg PO DAILY 05/04/21 11/24/21 History amLODIPine BESYLATE/BENAZEPRIL 1 cap PO DAILY 05/04/21 11/24/21 History [amLODIPine BESYLATE/BENAZEPRIL 10-40 mg] Aspirin 81 mg PO DAILY 30 Days #30 05/11/21 11/24/21 Rx Clopidogrel [Plavix] 75 mg PO DAILY 06/22/21 11/24/21 History Empagliflozin [Jardiance] 10 mg PO DAILY 06/22/21 11/24/21 History Metoprolol Succinate (ER) [Toprol 12.5 mg PO HS 06/22/21 11/24/21 History XL] Nitroglycerin Sl Tabs [Nitrostat] 0.4 mg SUBLINGUAL Q5M PRN 06/22/21 11/24/21 History Atorvastatin [Lipitor] 80 mg PO HS 11/22/21 11/24/21 History Cephalexin [Keflex] 500 mg PO Q12HR 11/22/21 11/24/21 History Healty Eyes 1 tab PO DAILY 11/22/21 11/24/21 History metFORMIN HCL [Metformin HCl] 1,000 mg PO BID 11/22/21 11/24/21 History Allergies Allergy/AdvReac Type Severity Reaction Status Date / Time enalaprilat [From Vasotec] Allergy Anaphylaxis Verified 11/24/21 06:19 Physical Exam Vitals: Vital Signs Temp Pulse Pulse Pulse Resp BP Pulse Ox 11/28/21 07:04 7.7 F L 148 H 24 101/73 90 L 11/28/21 07:00 84 L 11/28/21 01:50 98.2 F 76 17 106/64 92 L 11/27/21 20:25 98.2 F 78 18 117/66 91 L 11/27/21 20:00 12 11/27/21 19:21 74 11/27/21 19:12 72 11/27/21 15:51 72 18 11/27/21 15:39 70 16 11/27/21 13:58 98.2 F 84 17 109/55 90 L 11/27/21 11:28 70 18 11/27/21 11:11 72 18 Intake and Output 11/27/21 11/28/21 11/28/21 22:59 06:59 14:59 Intake Total 150 Balance 150 Intake: Oral 150 Other: # Voids 4 Results 11/28/21 07:34 11/28/21 07:34 Cardiac Enzymes 11/28/21 11/28/21 Range/Units 07:34 07:34 AST 94 H (14-36) U/L Troponin I 1.470 H* (0.000-0.034) ng/mL CBC 11/28/21 11/28/21 Range/Units 05:27 07:34 WBC 12.24 H 13.2 H (4.50-10.00) X 10*3/uL RBC 3.95 L 4.23 (4.10-5.20) X 10*6/uL Hgb 11.3 L 12.5 (12.0-15.0) g/dL Hct 36.0 L 37.4 (37.2-46.3) % Plt Count 204 204 (140-440) X 10*3/uL Comprehensive Metabolic Panel 11/28/21 11/28/21 Range/Units 05:27 07:34 Sodium 138 136 L (135-145) mmol/L Potassium 4.2 4.9 (3.5-5.5) mmol/L Chloride 103 102 (96-109) mmol/L Carbon Dioxide 24.5 22 (20.0-27.5) mmol/L BUN 19.8 20 H (9.0-27.0) mg/dL Creatinine 1.2 1.25 H (0.6-1.5) mg/dL Glucose 39 L* 173 H (70-110) mg/dL Calcium 8.8 8.6 (8.7-10.3) mg/dL AST 94 H (14-36) U/L ALT 115 H (4-34) U/L Alkaline Phosphatase 141 H (38-126) U/L Total Protein 6.0 L (6.3-8.2) g/dL Albumin 3.3 L (3.5-5.0) g/dL Current Medications Generic Name Dose Route Start Last Admin Trade Name Freq PRN Reason Stop Dose Admin Hydrocodone Bitart/Acetaminophen 1 each 11/24/21 07:43 11/27/21 22:40 Hydrocodone/Apap 5-325mg 1 Each Tab PO 12/24/21 07:44 1 each Q4HR PRN Administration Mild to Moderate Pain Albuterol/Ipratropium 3 ml 11/26/21 12:00 11/28/21 07:17 Ipratropium-Albuterol 3 Ml Neb INHALATION Not Given RT-QID JANETTE Albuterol/Ipratropium 3 ml 11/26/21 11:30 11/26/21 21:15 Ipratropium-Albuterol 3 Ml Neb INHALATION 3 ml RT-QID PRN Administration Shortness Of Breath Or Wheezing Atorvastatin Calcium 80 mg 11/24/21 21:00 11/27/21 20:23 Atorvastatin 80 Mg Tab PO 12/24/21 21:01 80 mg HS JANETTE Administration Dextrose/Water 25 ml 11/28/21 08:19 Dextrose 50% Syringe 50 Ml IVP PER PROTOCOL PRN Hypoglycemia Protocol Dextrose/Water 50 ml 11/28/21 08:19 Dextrose 50% Syringe 50 Ml IVP PER PROTOCOL PRN Hypoglycemia Protocol Heparin Sodium (Porcine) 5,000 unit 11/24/21 16:00 11/27/21 23:03 Heparin Sodium,Porcine/Pf 5,000 Unit/0.5 Ml Syringe SQ 12/24/21 16:01 5,000 unit Q8HR JANETTE Administration Hydromorphone HCl 1 mg 11/24/21 07:42 11/25/21 17:30 Hydromorphone 1 Mg/Ml 1 Ml Syringe IVP 12/24/21 07:43 1 mg Q2HR PRN Administration Severe Pain (Scale 7 to 10) Lactated Ringer's 1,000 mls @ 20 mls/hr 11/24/21 06:08 11/28/21 05:00 Lactated Ringers IV 12/24/21 06:09 Not Given .Q24H JANETTE Piperacillin Sod/Tazobactam 100 mls @ 25 mls/hr 11/26/21 12:00 11/28/21 03:49 Sod 3.375 gm/ Sodium Chloride IVPB 25 mls/hr Q8H JANETTE Administration Protocol Amiodarone HCl 360 mg/ 200 mls @ 33.333 mls/hr 11/28/21 07:30 11/28/21 07:57 Dextrose/Water IV 11/28/21 13:29 1 mg/min .Q6H ONE 33.333 mls/hr Administration Protocol 1 MG/MIN Amiodarone HCl 450 mg/ 250 mls @ 16.667 mls/hr 11/28/21 13:30 Dextrose/Water IV 11/29/21 07:29 .Q15H JANETTE Protocol 0.5 MG/MIN Insulin Aspart 0 unit 11/28/21 12:30 Insulin Aspart (Novolog) 100 Unit/Ml Vial SQ ACHS [facility] Protocol Methocarbamol 750 mg 11/24/21 14:00 11/27/21 22:40 Methocarbamol 750 Mg Tab PO 12/24/21 14:01 750 mg QID JANETTE Administration Metoprolol Succinate 12.5 mg 11/24/21 21:00 11/27/21 20:23 Metoprolol Succinate (Er) 25 Mg Tab.Er.24h PO 12/24/21 21:01 12.5 mg HS JANETTE Administration Nitroglycerin 0.4 mg 11/24/21 07:41 11/28/21 07:03 Nitroglycerin Sl Tabs 0.4 Mg Tab SUBLINGUAL 12/24/21 07:42 0.4 mg Q5M PRN Administration Chest Pain Intake and Output 11/27/21 11/28/21 11/28/21 22:59 06:59 14:59 Intake Total 150 Balance 150 Intake: Oral 150 Other: # Voids 4 11/28/21 07:34 11/28/21 07:34
[2021-11-28] MEDS ORDERED: DEXTROSE 5% IN WATER 250 ML with AMIODARONE 300 MG IV ONE (09:49)
[2021-11-28] MEDS ORDERED: METOPROLOL TARTRATE 50 MG TAB PO SCH (10:00)
[2021-11-28] MEDS: HEPARIN SODIUM,PORCINE/PF 5,000 UNIT/0.5 ML SYRINGE SQ SCH (10:50)
[2021-11-28] MEDS: AMLODIPINE BENAZEPRIL PO SCH (10:50)
[2021-11-28] MEDS ORDERED: APIXABAN 5 MG TAB PO SCH (11:00)
--- NOTE | 2021-11-28 11:26 | P.PN ---
Subjective Progress Note Date: 11/28/21 POD #4 S/P right partial nephrectomy Had worsening shortness of breath, chest pain this morning. Patient was in A. fib and subsequently transferred to the ICU Objective - Vital Signs Vital signs: Vital Signs Temp 7.7 F L 11/28/21 07:04 Pulse 148 H 11/28/21 07:04 Resp 24 11/28/21 07:04 BP 101/73 11/28/21 07:04 Pulse Ox 90 L 11/28/21 07:04 FiO2 Intake & Output 11/27/21 11/28/21 11/28/21 18:59 06:59 18:59 Intake Total 150 Balance 150 Intake: Oral 150 Other: # Voids 4 - Constitutional General appearance: Present: no acute distress - Gastrointestinal General gastrointestinal: Present: soft. Absent: distended, tenderness - Labs CBC & Chem 7: 11/28/21 07:34 11/28/21 07:34 Labs: Abnormal Lab Results - Last 24 Hours (Table) 11/27/21 11/28/21 11/28/21 Range/Units 16:42 05:27 06:57 WBC 12.24 H (4.50-10.00) X 10*3/uL RBC 3.95 L (4.10-5.20) X 10*6/uL Hgb 11.3 L (12.0-15.0) g/dL Hct 36.0 L (37.2-46.3) % MCHC 31.4 L (32.0-37.0) g/dL RDW 15.3 H (11.5-14.5) % Immature Gran # 0.15 H (0.00-0.04) X 10*3/uL Neutrophils # 9.79 H (1.80-7.70) X 10*3/uL Lymphocytes # (1.0-4.8) k/uL Eosinophils # 0.41 H (0.04-0.35) X 10*3/uL Sodium (137-145) mmol/L BUN (7-17) mg/dL Creatinine (0.52-1.04) mg/dL Glucose (74-99) mg/dL POC Glucose (mg/dL) 66 L 173 H (70-110) mg/dL AST (14-36) U/L ALT (4-34) U/L Alkaline Phosphatase (38-126) U/L Troponin I (0.000-0.034) ng/mL Total Protein (6.3-8.2) g/dL Albumin (3.5-5.0) g/dL 11/28/21 11/28/21 11/28/21 Range/Units 07:34 07:34 07:34 WBC 13.2 H (4.50-10.00) X 10*3/uL RBC (4.10-5.20) X 10*6/uL Hgb (12.0-15.0) g/dL Hct (37.2-46.3) % MCHC (32.0-37.0) g/dL RDW (11.5-14.5) % Immature Gran # (0.00-0.04) X 10*3/uL Neutrophils # 11.4 H (1.80-7.70) X 10*3/uL Lymphocytes # 0.7 L (1.0-4.8) k/uL Eosinophils # (0.04-0.35) X 10*3/uL Sodium 136 L (137-145) mmol/L BUN 20 H (7-17) mg/dL Creatinine 1.25 H (0.52-1.04) mg/dL Glucose 173 H (74-99) mg/dL POC Glucose (mg/dL) (70-110) mg/dL AST 94 H (14-36) U/L ALT 115 H (4-34) U/L Alkaline Phosphatase 141 H (38-126) U/L Troponin I 1.470 H* (0.000-0.034) ng/mL Total Protein 6.0 L (6.3-8.2) g/dL Albumin 3.3 L (3.5-5.0) g/dL 11/28/21 Range/Units 07:41 WBC (4.50-10.00) X 10*3/uL RBC (4.10-5.20) X 10*6/uL Hgb (12.0-15.0) g/dL Hct (37.2-46.3) % MCHC (32.0-37.0) g/dL RDW (11.5-14.5) % Immature Gran # (0.00-0.04) X 10*3/uL Neutrophils # (1.80-7.70) X 10*3/uL Lymphocytes # (1.0-4.8) k/uL Eosinophils # (0.04-0.35) X 10*3/uL Sodium (137-145) mmol/L BUN (7-17) mg/dL Creatinine (0.52-1.04) mg/dL Glucose (74-99) mg/dL POC Glucose (mg/dL) 172 H (70-110) mg/dL AST (14-36) U/L ALT (4-34) U/L Alkaline Phosphatase (38-126) U/L Troponin I (0.000-0.034) ng/mL Total Protein (6.3-8.2) g/dL Albumin (3.5-5.0) g/dL Assessment and Plan Assessment: Postoperative day #4 status post right partial nephrectomy. Patient had worsening shortness of breath this am, and in A.fib this am. currently in the ICU -Continue incentive spirometer - Patient had a fairly large tumor, had fairly large resection area with the kidney, very high risk of bleeding of starting anticoagulation this early. Reymundo mmend holding off on starting heparin at this point. Okay with starting 81 mg aspirin if needed (1) Right renal mass Current Visit: No Status: Acute Code(s): N28.89 - OTHER SPECIFIED DISORDERS OF KIDNEY AND URETER SNOMED Code(s): 126399171
[2021-11-28] MEDS: HYDROmorphone 1 MG/ML 1 ML SYRINGE IVP PRN ×2 (11:27→13:45)
--- NOTE | 2021-11-28 12:17 | PN ---
PROGRESS NOTE DATE OF SERVICE: 11/27/21: SUBJECTIVE: This is a 76-year-old woman, who was admitted with bilateral pneumonia with hypoxia. She is being closely monitored. The patient is started on broad-spectrum IV antibiotics. No chest pain. No palpitation. OBJECTIVE: VITAL SIGNS: Pulse is 84, blood pressure 109/54, respirations 17. HEENT: Conjunctivae are normal. NECK: No JVD. CARDIOVASCULAR: S1 and S2. RESPIRATORY: Few scattered rhonchi. ABDOMEN: Soft. Status post surgery. LABORATORY DATA: Reviewed. ASSESSMENT: 1. Bilateral pneumonia with hypoxia, postoperative. 2. Diabetes mellitus, type 2. 3. Hypertension. 4. Hyperlipidemia. 5. History of recent nephrectomy. RECOMMENDATIONS: Recommend to continue current medications. Continue symptomatic treatment. CTA was reviewed. There is no evidence of pulmonary embolism, but we will continue the antibiotics and bronchodilators. We will also recommend Pulmonary consultation as well because of persistent hypoxia. Closely follow with Urology. Further recommendations to follow. MMODL / IJN: [id number] /
[2021-11-28 12:31] LABS: Glucose,Whole Blood 175 mg/dL (70-110)
[2021-11-28] MEDS: INSULIN ASPART (NovoLOG) 100 UNIT/ML VIAL SQ SCH ×3 (12:36→20:12)
[2021-11-28 12:55] LABS: Appearance,Urine Clear (Clear); Bilirubin,Urine Negative (Negative); Blood,Urine Small (Negative); Color,Urine Light Yellow; Glucose,Urine (UA) 4+ (Negative); Ketones,Urine Negative (Negative); Leukocyte Esterase,Urine Negative (Negative); Mucus,Urine Rare /hpf; Nitrite,Urine Negative (Negative); Protein,Urine Negative (Negative); RBC,Urine 7 /hpf (0-5); Specific Gravity,Urine 1.012 (1.001-1.035); Squamous Epithelial Cell,Urine <1 /hpf (0-4); Urobilinogen,Urine <2.0 mg/dL (<2.0); WBC,Urine 1 /hpf (0-5)
--- NOTE | 2021-11-28 13:53 | P.PN ---
Subjective Progress Note Date: 11/28/21 This is a 76 year old male, post operative day #4 right partial nephrectomy for known history of right renal mass. Patients hospital stay complicated by shortness of breath and hypoxia, with chest pain. A team was called this morning and patient has been transferred to intensive care unit for close monitoring. Found to be in atrial fibrillation with rapid ventricular rate and received amiodarone bolus and continues on amiodarone infusion, pending cardiology consultation. Patient also received a dose of IV lasix 40 mg today. D-Dimer elevated at 0.96, chest CTA is negative for pulmonary embolism. Chest xray showing patchy bibasilar infiltrates. Continues on bronchodilators, empiric antibiotics with IV zosyn. Echocardiogram completed in April of this year shows an EF of 45-50% with LV wall hypokinesis, mild MR, mild TR. Labs reviewed today showing a white count of 13.2, sodium 136, beyond 20, creatinine 1.25. He does have troponin elevation at 1.400. Liver enzymes are also elevated, proBNP 662. Covid negative. He remains afebrile, heart rate 140 8H fibrillation, blood pressure 101/73, patient is on a non rebreather at 15 L. Patient is on a combination of amlodipine/benazepril daily which we will hold at this time secondary to low normal BPs. Review of Systems Constitutional: Reports fatigue, has felt feverish Cardio vascular: denied any chest pain, palpitations Gastrointestinal: denied any nausea, vomiting, diarrhea. Passing gas, has not had a BM in 5 days. Reports dysuria/burning with urination. Pulmonary: Reports shortness of breath, reports cough Neurologic denied any new focal deficits All inpatient medications were reviewed and appropriate changes in these medications as dictated in the interval history and assessment and plan. PHYSICAL EXAMINATION: GENERAL: The patient is alert and oriented x3, currently on 15L non re-breather, appears fatigued. Well developed, well nourished. HEENT: Pupils are round and equally reacting to light. EOMI. No scleral icterus. No conjunctival pallor. Normocephalic, atraumatic. No pharyngeal erythema. No thyromegaly. CARDIOVASCULAR: S1 and S2 present. No murmurs, rubs, or gallops. Irregular rate and rhythm, tachycardic PULMONARY: Chest is clear to auscultation, no wheezing or crackles. ABDOMEN: Soft, mild generalied tenderness, distended, normoactive bowel sounds. No palpable organomegaly. MUSCULOSKELETAL: No joint swelling or deformity. EXTREMITIES: No cyanosis, clubbing, or pedal edema. NEUROLOGICAL: Gross neurological examination did not reveal any focal deficits. SKIN: No rashes. Assessment and plan Assessment Acute hypoxic respiratory failure secondary to possible bilateral pneumonia New-onset atrial fibrillation with rapid ventricular rate Troponin elevation under investigation Mild acute renal injury Status post op day #4 robotic partial right nephrectomy, Diabetes mellitus type 2 Hypertension currently blood pressure is 100 systolic Hyperlipidemia History coronary artery disease status post cardiac stents in the past GI Prophylaxis DVT Prophylaxis Full Code Plan Patient is being monitored in intensive care unit post Ateam Continues on amiodarone infusion Cardiology consultation Continue empiric antibiotic coverage, bronchodilators Hold amlodipine/benazepril combination Procalcitonin level pending Added colace today, has not had a BM in 5 days, monitor closely Check urinalysis Repeat labs in AM The impression and plan of care has been dictated by Irma Alvarado, Nurse Practitioner as directed. Dr. Ian MD I have performed a history and physical examination and medical decision making of this patient, discussed the same with the dictator, and agree with the dictators assessment and plan as written, documented as a scribe. Based on total visit time, I have performed more than 50% of this visit. Objective - Vital Signs Vital signs: Vital Signs Temp 7.7 F L 11/28/21 07:04 Pulse 148 H 11/28/21 07:04 Resp 24 11/28/21 07:04 BP 101/73 11/28/21 07:04 Pulse Ox 90 L 11/28/21 07:04 FiO2 Intake & Output 11/27/21 11/28/21 11/28/21 18:59 06:59 18:59 Intake Total 150 Balance 150 Intake: Oral 150 Other: # Voids 4 - Labs CBC & Chem 7: 11/28/21 07:34 11/28/21 07:34 Labs: Abnormal Lab Results - Last 24 Hours (Table) 11/27/21 11/28/21 11/28/21 Range/Units 16:42 05:27 06:57 WBC 12.24 H (4.50-10.00) X 10*3/uL RBC 3.95 L (4.10-5.20) X 10*6/uL Hgb 11.3 L (12.0-15.0) g/dL Hct 36.0 L (37.2-46.3) % MCHC 31.4 L (32.0-37.0) g/dL RDW 15.3 H (11.5-14.5) % Immature Gran # 0.15 H (0.00-0.04) X 10*3/uL Neutrophils # 9.79 H (1.80-7.70) X 10*3/uL Lymphocytes # (1.0-4.8) k/uL Eosinophils # 0.41 H (0.04-0.35) X 10*3/uL Sodium (137-145) mmol/L BUN (7-17) mg/dL Creatinine (0.52-1.04) mg/dL Glucose (74-99) mg/dL POC Glucose (mg/dL) 66 L 173 H (70-110) mg/dL AST (14-36) U/L ALT (4-34) U/L Alkaline Phosphatase (38-126) U/L Troponin I (0.000-0.034) ng/mL Total Protein (6.3-8.2) g/dL Albumin (3.5-5.0) g/dL 11/28/21 11/28/21 11/28/21 Range/Units 07:34 07:34 07:34 WBC 13.2 H (4.50-10.00) X 10*3/uL RBC (4.10-5.20) X 10*6/uL Hgb (12.0-15.0) g/dL Hct (37.2-46.3) % MCHC (32.0-37.0) g/dL RDW (11.5-14.5) % Immature Gran # (0.00-0.04) X 10*3/uL Neutrophils # 11.4 H (1.80-7.70) X 10*3/uL Lymphocytes # 0.7 L (1.0-4.8) k/uL Eosinophils # (0.04-0.35) X 10*3/uL Sodium 136 L (137-145) mmol/L BUN 20 H (7-17) mg/dL Creatinine 1.25 H (0.52-1.04) mg/dL Glucose 173 H (74-99) mg/dL POC Glucose (mg/dL) (70-110) mg/dL AST 94 H (14-36) U/L ALT 115 H (4-34) U/L Alkaline Phosphatase 141 H (38-126) U/L Troponin I 1.470 H* (0.000-0.034) ng/mL Total Protein 6.0 L (6.3-8.2) g/dL Albumin 3.3 L (3.5-5.0) g/dL 11/28/21 Range/Units 07:41 WBC (4.50-10.00) X 10*3/uL RBC (4.10-5.20) X 10*6/uL Hgb (12.0-15.0) g/dL Hct (37.2-46.3) % MCHC (32.0-37.0) g/dL RDW (11.5-14.5) % Immature Gran # (0.00-0.04) X 10*3/uL Neutrophils # (1.80-7.70) X 10*3/uL Lymphocytes # (1.0-4.8) k/uL Eosinophils # (0.04-0.35) X 10*3/uL Sodium (137-145) mmol/L BUN (7-17) mg/dL Creatinine (0.52-1.04) mg/dL Glucose (74-99) mg/dL POC Glucose (mg/dL) 172 H (70-110) mg/dL AST (14-36) U/L ALT (4-34) U/L Alkaline Phosphatase (38-126) U/L Troponin I (0.000-0.034) ng/mL Total Protein (6.3-8.2) g/dL Albumin (3.5-5.0) g/dL Assessment and Plan Time with Patient: Greater than 30
[2021-11-28] MEDS: IPRATROPIUM-ALBUTEROL 3 ML NEB INHALATION PRN (14:13)
--- NOTE | 2021-11-28 14:42 | XR ---
EXAMINATION TYPE: XR chest 1V portable DATE OF EXAM: 11/28/2021 2:37 PM COMPARISON: Chest radiographs from 11/28/2021. TECHNIQUE: XR chest 1V portable Frontal view of the chest. CLINICAL INDICATION:Female, 76 years old with history of decreased SpO2; FINDINGS: Lungs/Pleura: There is no evidence of pleural effusion or pneumothorax. Patchy bibasilar airspace opa cities redemonstrated with air bronchograms. More consolidative appearance on the left. Pulmonary vascularity: Unremarkable. Heart/mediastinum: Cardiomediastinal silhouette is partially obscured due to overlying and adjacent o pacities. Atherosclerotic calcifications are seen in the aorta. Musculoskeletal: No acute osseous pathology. IMPRESSION: Patchy bibasilar airspace opacities redemonstrated with more consolidative appearance on the left. Fi ndings are concerning for pneumonia.
[2021-11-28] MEDS: DOCUSATE 100 MG CAP PO SCH (15:25)
[2021-11-28] MEDS: AMIODARONE 450 MG in DEXTROSE 5% IN WATER 250 ML IV SCH ×2 (16:10)
[2021-11-28 17:23] LABS: Glucose,Whole Blood 204 mg/dL (70-110)
[2021-11-28 20:06] LABS: Glucose,Whole Blood 172 mg/dL (70-110)
[2021-11-28] MEDS: HYDROcodone/APAP 5-325MG 1 EACH TAB PO PRN (20:12)
[2021-11-28] MEDS: METOPROLOL TARTRATE 25 MG TAB PO SCH (20:13)
[2021-11-28] MEDS: ATORVASTATIN 80 MG TAB PO SCH (20:13)
[2021-11-29] MEDS: methocarbamoL 750 MG TAB PO SCH ×5 (00:48→22:53)
[2021-11-29] MEDS: PIPERACILLIN-TAZOBACTAM 3.375 GM in SODIUM CHLORIDE 0.9% 100 ML IVPB SCH ×3 (03:04→20:49)
[2021-11-29 04:47] LABS: Albumin 3.2 g/dL (3.5-5.0); Calcium 8.3 mg/dL (8.4-10.2); Potassium 4.2 mmol/L (3.5-5.1); Total Bilirubin 1.3 mg/dL (0.2-1.3); Total Protein 5.9 g/dL (6.3-8.2)
[2021-11-29 05:03] LABS: Basophils # (A) 0.1 k/uL (0-0.2); Basophils % (A) 1 %; Eosinophils # (A) 0.4 k/uL (0-0.7); Eosinophils % (A) 3 %; HCT 34.9 % (34.0-46.0); HGB 11.5 gm/dL (11.4-16.0); Hypochromasia Slight; Lymphocytes # (A) 0.9 k/uL (1.0-4.8); Lymphocytes % (A) 7 %; MCH 29.5 pg (25.0-35.0); MCV 89.2 fL (80.0-100.0); Monocytes # (A) 0.8 k/uL (0-1.0); Monocytes % (A) 6 %; Neutrophils # (A) 10.9 k/uL (1.3-7.7); Neutrophils % (A) 82 %; Platelet Count 211 k/uL (150-450); RBC 3.91 m/uL (3.80-5.40); WBC 13.3 k/uL (3.8-10.6)
[2021-11-29] MEDS: AMIODARONE 450 MG in DEXTROSE 5% IN WATER 250 ML IV SCH ×2 (06:20)
[2021-11-29 06:36] LABS: Glucose,Whole Blood 99 mg/dL (70-110)
[2021-11-29] MEDS: INSULIN ASPART (NovoLOG) 100 UNIT/ML VIAL SQ SCH ×4 (07:05→20:51)
[2021-11-29] MEDS: LACTATED RINGERS 1,000 ML IV SCH (07:42)
--- NOTE | 2021-11-29 07:47 | P.PN ---
Subjective Progress Note Date: 11/29/21 76 yo female who underwent a robotic partial nephrectomy right 11/24/2021. Her post opcourse has been complicated by a pneumonia for which she is being treated and subsequently atrial fibrillation. She is in the icu for this. Dr Del Cid prefers to hold anticoagulation for a few days as the exposed raw kidney bed was quite large and the risk for subsequent bleeding is high. She is on 85 % ventimask and improving. Her afib has converted for now. Objective - Vital Signs Vital signs: Vital Signs Temp 99.0 F 11/29/21 04:00 Pulse 55 L 11/29/21 06:00 Resp 21 11/29/21 06:00 BP 89/52 11/29/21 06:00 Pulse Ox 96 11/29/21 06:00 FiO2 85 11/29/21 04:00 Intake & Output 11/28/21 11/28/21 11/29/21 06:59 18:59 06:59 Intake Total 150 260 320 Output Total 750 650 Balance 150 -490 -330 Weight 75.7 kg Intake: IV 260 320 0.9 160 220 Piperacillin-Tazobactam 3 100 100 .375 gm In Sodium Chloride 0.9% 100 ml @ 25 mls/hr IVPB Q8H PENDING SALE TO [facility] Rx#: [id number] Oral 150 Output: Urine 750 650 Other: Voiding Method External Catheter External Catheter # Voids 1 - Labs CBC & Chem 7: 11/29/21 04:00 11/29/21 04:00 Labs: Abnormal Lab Results - Last 24 Hours (Table) 11/28/21 11/28/21 11/28/21 Range/Units 05:27 05:27 05:27 WBC 12.24 H (4.50-10.00) X 10*3/uL RBC 3.95 L (4.10-5.20) X 10*6/uL Hgb 11.3 L (12.0-15.0) g/dL Hct 36.0 L (37.2-46.3) % MCHC 31.4 L (32.0-37.0) g/dL RDW 15.3 H (11.5-14.5) % Immature Gran # 0.15 H (0.00-0.04) X 10*3/uL Neutrophils # 9.79 H (1.80-7.70) X 10*3/uL Lymphocytes # (1.0-4.8) k/uL Eosinophils # 0.41 H (0.04-0.35) X 10*3/uL Sodium (137-145) mmol/L BUN (7-17) mg/dL Creatinine (0.52-1.04) mg/dL Est GFR (CKD-EPI)AfAm 51.6 L (60.0-200.0) Est GFR (CKD-EPI)NonAf 44.5 L (60.0-200.0) Glucose 39 L* (70-110) mg/dL POC Glucose (mg/dL) (70-110) mg/dL Hemoglobin A1c 6.6 H (0.0-6.0) % Calcium (8.4-10.2) mg/dL AST (14-36) U/L ALT (4-34) U/L Alkaline Phosphatase (38-126) U/L Troponin I (0.000-0.034) ng/mL Total Protein (6.3-8.2) g/dL Albumin (3.5-5.0) g/dL Procalcitonin (0.02-0.09) ng/mL Urine Glucose (UA) (Negative) Urine Blood (Negative) Urine RBC (0-5) /hpf Urine Mucus (None) /hpf 11/28/21 11/28/21 11/28/21 Range/Units 06:57 07:34 07:34 WBC 13.2 H (4.50-10.00) X 10*3/uL RBC (4.10-5.20) X 10*6/uL Hgb (12.0-15.0) g/dL Hct (37.2-46.3) % MCHC (32.0-37.0) g/dL RDW (11.5-14.5) % Immature Gran # (0.00-0.04) X 10*3/uL Neutrophils # 11.4 H (1.80-7.70) X 10*3/uL Lymphocytes # 0.7 L (1.0-4.8) k/uL Eosinophils # (0.04-0.35) X 10*3/uL Sodium (137-145) mmol/L BUN (7-17) mg/dL Creatinine (0.52-1.04) mg/dL Est GFR (CKD-EPI)AfAm (60.0-200.0) Est GFR (CKD-EPI)NonAf (60.0-200.0) Glucose (70-110) mg/dL POC Glucose (mg/dL) 173 H (70-110) mg/dL Hemoglobin A1c (0.0-6.0) % Calcium (8.4-10.2) mg/dL AST (14-36) U/L ALT (4-34) U/L Alkaline Phosphatase (38-126) U/L Troponin I 1.470 H* (0.000-0.034) ng/mL Total Protein (6.3-8.2) g/dL Albumin (3.5-5.0) g/dL Procalcitonin (0.02-0.09) ng/mL Urine Glucose (UA) (Negative) Urine Blood (Negative) Urine RBC (0-5) /hpf Urine Mucus (None) /hpf 11/28/21 11/28/21 11/28/21 Range/Units 07:34 07:34 07:41 WBC (4.50-10.00) X 10*3/uL RBC (4.10-5.20) X 10*6/uL Hgb (12.0-15.0) g/dL Hct (37.2-46.3) % MCHC (32.0-37.0) g/dL RDW (11.5-14.5) % Immature Gran # (0.00-0.04) X 10*3/uL Neutrophils # (1.80-7.70) X 10*3/uL Lymphocytes # (1.0-4.8) k/uL Eosinophils # (0.04-0.35) X 10*3/uL Sodium 136 L (137-145) mmol/L BUN 20 H (7-17) mg/dL Creatinine 1.25 H (0.52-1.04) mg/dL Est GFR (CKD-EPI)AfAm (60.0-200.0) Est GFR (CKD-EPI)NonAf (60.0-200.0) Glucose 173 H (70-110) mg/dL POC Glucose (mg/dL) 172 H (70-110) mg/dL Hemoglobin A1c (0.0-6.0) % Calcium (8.4-10.2) mg/dL AST 94 H (14-36) U/L ALT 115 H (4-34) U/L Alkaline Phosphatase 141 H (38-126) U/L Troponin I (0.000-0.034) ng/mL Total Protein 6.0 L (6.3-8.2) g/dL Albumin 3.3 L (3.5-5.0) g/dL Procalcitonin 0.53 H (0.02-0.09) ng/mL Urine Glucose (UA) (Negative) Urine Blood (Negative) Urine RBC (0-5) /hpf Urine Mucus (None) /hpf 11/28/21 11/28/21 11/28/21 Range/Units 09:32 12:29 12:45 WBC (4.50-10.00) X 10*3/uL RBC (4.10-5.20) X 10*6/uL Hgb (12.0-15.0) g/dL Hct (37.2-46.3) % MCHC (32.0-37.0) g/dL RDW (11.5-14.5) % Immature Gran # (0.00-0.04) X 10*3/uL Neutrophils # (1.80-7.70) X 10*3/uL Lymphocytes # (1.0-4.8) k/uL Eosinophils # (0.04-0.35) X 10*3/uL Sodium (137-145) mmol/L BUN (7-17) mg/dL Creatinine (0.52-1.04) mg/dL Est GFR (CKD-EPI)AfAm (60.0-200.0) Est GFR (CKD-EPI)NonAf (60.0-200.0) Glucose (70-110) mg/dL POC Glucose (mg/dL) 156 H 175 H (70-110) mg/dL Hemoglobin A1c (0.0-6.0) % Calcium (8.4-10.2) mg/dL AST (14-36) U/L ALT (4-34) U/L Alkaline Phosphatase (38-126) U/L Troponin I (0.000-0.034) ng/mL Total Protein (6.3-8.2) g/dL Albumin (3.5-5.0) g/dL Procalcitonin (0.02-0.09) ng/mL Urine Glucose (UA) 4+ H (Negative) Urine Blood Small H (Negative) Urine RBC 7 H (0-5) /hpf Urine Mucus Rare H (None) /hpf 11/28/21 11/28/21 11/29/21 Range/Units 17:20 20:04 04:00 WBC 13.3 H (4.50-10.00) X 10*3/uL RBC (4.10-5.20) X 10*6/uL Hgb (12.0-15.0) g/dL Hct (37.2-46.3) % MCHC (32.0-37.0) g/dL RDW (11.5-14.5) % Immature Gran # (0.00-0.04) X 10*3/uL Neutrophils # 10.9 H (1.80-7.70) X 10*3/uL Lymphocytes # 0.9 L (1.0-4.8) k/uL Eosinophils # (0.04-0.35) X 10*3/uL Sodium (137-145) mmol/L BUN (7-17) mg/dL Creatinine (0.52-1.04) mg/dL Est GFR (CKD-EPI)AfAm (60.0-200.0) Est GFR (CKD-EPI)NonAf (60.0-200.0) Glucose (70-110) mg/dL POC Glucose (mg/dL) 204 H 172 H (70-110) mg/dL Hemoglobin A1c (0.0-6.0) % Calcium (8.4-10.2) mg/dL AST (14-36) U/L ALT (4-34) U/L Alkaline Phosphatase (38-126) U/L Troponin I (0.000-0.034) ng/mL Total Protein (6.3-8.2) g/dL Albumin (3.5-5.0) g/dL Procalcitonin (0.02-0.09) ng/mL Urine Glucose (UA) (Negative) Urine Blood (Negative) Urine RBC (0-5) /hpf Urine Mucus (None) /hpf 11/29/21 Range/Units 04:00 WBC (4.50-10.00) X 10*3/uL RBC (4.10-5.20) X 10*6/uL Hgb (12.0-15.0) g/dL Hct (37.2-46.3) % MCHC (32.0-37.0) g/dL RDW (11.5-14.5) % Immature Gran # (0.00-0.04) X 10*3/uL Neutrophils # (1.80-7.70) X 10*3/uL Lymphocytes # (1.0-4.8) k/uL Eosinophils # (0.04-0.35) X 10*3/uL Sodium 136 L (137-145) mmol/L BUN 30 H (7-17) mg/dL Creatinine 1.53 H (0.52-1.04) mg/dL Est GFR (CKD-EPI)AfAm (60.0-200.0) Est GFR (CKD-EPI)NonAf (60.0-200.0) Glucose (70-110) mg/dL POC Glucose (mg/dL) (70-110) mg/dL Hemoglobin A1c (0.0-6.0) % Calcium 8.3 L (8.4-10.2) mg/dL AST 204 H (14-36) U/L ALT 122 H (4-34) U/L Alkaline Phosphatase 152 H (38-126) U/L Troponin I (0.000-0.034) ng/mL Total Protein 5.9 L (6.3-8.2) g/dL Albumin 3.2 L (3.5-5.0) g/dL Procalcitonin (0.02-0.09) ng/mL Urine Glucose (UA) (Negative) Urine Blood (Negative) Urine RBC (0-5) /hpf Urine Mucus (None) /hpf
--- NOTE | 2021-11-29 08:20 | XR ---
EXAMINATION TYPE: XR chest 1V portable DATE OF EXAM: 11/29/2021 COMPARISON: Chest x-ray dated 11/28/2021 HISTORY: Pneumonia TECHNIQUE: Single frontal view of the chest is obtained. FINDINGS: There is abnormal attenuation at the lung bases, air bronchograms are noted in the retroca rdiac region in the left hemidiaphragm is obscured. No evident pneumothorax. Lung volumes are low and the patient is rotated. Heart is enlarged. Aorta is dense. IMPRESSION: Correlate for basilar pneumonia, findings similar to prior exam, there may be associated effusion, follow-up recommended.
[2021-11-29] MEDS: IPRATROPIUM-ALBUTEROL 3 ML NEB INHALATION SCH ×4 (08:40→21:03)
--- NOTE | 2021-11-29 08:46 | P.PN ---
Subjective Progress Note Date: 11/29/21 The patient is a 76-year-old female who is currently admitted to the hospital after undergoing a partial nephrectomy on 11/24/2021. Postoperative complications included A. fib with RVR and pneumonia. On 11/28/2021 patient was started on amiodarone drip, where she spontaneously converted back to sinus mec hanism. Overall the patient was in atrial fibrillation for less than 24 hours. Anticoagulation has been held due to high bleeding risk. The patient was interviewed and examined lying comfortably in bed. She states she is feeling much better now that she is back in sinus rhythm. She denies any pain or pressure. No heart racing or fluttering. GENERAL: Well-appearing, well-nourished and in no acute distress. NECK: Supple without JVD or thyromegaly. LUNGS: Breath sounds clear to auscultation bilaterally. Respiration equal and unlabored. No wheezes, rales or rhonchi. HEART: Regular rate and rhythm without murmurs, rubs or gallops. S1 and S2 heard. EXTREMITIES: Normal range of motion, no edema. No clubbing or cyanosis. Peripheral pulses intact and strong. VITALS: Blood pressure 91/48, respiratory rate 26, pulse 62, SpO2 96% on BiPAP TELEMETRY: Sinus rhythm. Mild bradycardia overnight LABS: WBC 13.3, hemoglobin 11.5, platelet 211, sodium 136, potassium 4.2, BUN 30, creatinine 1.53, AST 122, ALT 152, bilirubin 204 IMPRESSION: Atrial fibrillation with RVR, spontaneous conversion back to sinus rhythm within 24 hours Elevated troponin, unclear significance Status post nephrectomy, postop day 5 Elevated liver enzymes History of coronary artery disease History diabetes mellitus History of hypertension PLAN: Echocardiogram and Doppler study to assess heart structure and function Discontinue amiodarone after IV drip is completed. No oral amiodarone. No need for anticoagulation as patient was in A. fib for less than 24 hours Discussion with surgical team regarding antiplatelet therapy. Patient had stents placed in April 2021. Further recommendations to be based upon clinical course I am dictating on behalf of Dr Erwin Olivia's history/physical and assessment/plan. Objective - Vital Signs Vital signs: Vital Signs Temp 99.0 F 11/29/21 04:00 Pulse 62 11/29/21 07:00 Resp 26 H 11/29/21 07:00 BP 91/48 11/29/21 07:00 Pulse Ox 96 11/29/21 07:00 FiO2 85 11/29/21 04:00 Intake & Output 11/28/21 11/29/21 11/29/21 18:59 06:59 18:59 Intake Total 260 576.116 20 Output Total 750 650 Balance -490 -73.884 20 Weight 75.7 kg Intake: IV 260 340 20 0.9 160 240 20 Piperacillin-Tazobactam 3 100 100 .375 gm In Sodium Chloride 0.9% 100 ml @ 25 mls/hr IVPB Q8H [facility]TE Rx#: [id number] Intake, IV Titration 236.116 Amount Amiodarone 450 mg In 236.116 Dextrose 5% in Water 250 ml @ 0.5 MG/MIN 16.667 mls/hr IV .Q15H J[facility]ETTE Rx#: [id number] Output: Urine 750 650 Other: Voiding Method External Catheter External Catheter # Voids 1 - Labs CBC & Chem 7: 11/29/21 04:00 11/29/21 04:00 Labs: Abnormal Lab Results - Last 24 Hours (Table) 11/28/21 11/28/21 11/28/21 Range/Units 05:27 05:27 05:27 WBC 12.24 H (4.50-10.00) X 10*3/uL RBC 3.95 L (4.10-5.20) X 10*6/uL Hgb 11.3 L (12.0-15.0) g/dL Hct 36.0 L (37.2-46.3) % MCHC 31.4 L (32.0-37.0) g/dL RDW 15.3 H (11.5-14.5) % Immature Gran # 0.15 H (0.00-0.04) X 10*3/uL Neutrophils # 9.79 H (1.80-7.70) X 10*3/uL Lymphocytes # (1.0-4.8) k/uL Eosinophils # 0.41 H (0.04-0.35) X 10*3/uL Sodium (137-145) mmol/L BUN (7-17) mg/dL Creatinine (0.52-1.04) mg/dL Est GFR (CKD-EPI)AfAm 51.6 L (60.0-200.0) Est GFR (CKD-EPI)NonAf 44.5 L (60.0-200.0) Glucose 39 L* (70-110) mg/dL POC Glucose (mg/dL) (70-110) mg/dL Hemoglobin A1c 6.6 H (0.0-6.0) % Calcium (8.4-10.2) mg/dL AST (14-36) U/L ALT (4-34) U/L Alkaline Phosphatase (38-126) U/L Troponin I (0.000-0.034) ng/mL Total Protein (6.3-8.2) g/dL Albumin (3.5-5.0) g/dL Procalcitonin (0.02-0.09) ng/mL Urine Glucose (UA) (Negative) Urine Blood (Negative) Urine RBC (0-5) /hpf Urine Mucus (None) /hpf 11/28/21 11/28/21 11/28/21 Range/Units 07:34 07:34 09:32 WBC (4.50-10.00) X 10*3/uL RBC (4.10-5.20) X 10*6/uL Hgb (12.0-15.0) g/dL Hct (37.2-46.3) % MCHC (32.0-37.0) g/dL RDW (11.5-14.5) % Immature Gran # (0.00-0.04) X 10*3/uL Neutrophils # (1.80-7.70) X 10*3/uL Lymphocytes # (1.0-4.8) k/uL Eosinophils # (0.04-0.35) X 10*3/uL Sodium (137-145) mmol/L BUN (7-17) mg/dL Creatinine (0.52-1.04) mg/dL Est GFR (CKD-EPI)AfAm (60.0-200.0) Est GFR (CKD-EPI)NonAf (60.0-200.0) Glucose (70-110) mg/dL POC Glucose (mg/dL) 156 H (70-110) mg/dL Hemoglobin A1c (0.0-6.0) % Calcium (8.4-10.2) mg/dL AST (14-36) U/L ALT (4-34) U/L Alkaline Phosphatase (38-126) U/L Troponin I 1.470 H* (0.000-0.034) ng/mL Total Protein (6.3-8.2) g/dL Albumin (3.5-5.0) g/dL Procalcitonin 0.53 H (0.02-0.09) ng/mL Urine Glucose (UA) (Negative) Urine Blood (Negative) Urine RBC (0-5) /hpf Urine Mucus (None) /hpf 11/28/21 11/28/21 11/28/21 Range/Units 12:29 12:45 17:20 WBC (4.50-10.00) X 10*3/uL RBC (4.10-5.20) X 10*6/uL Hgb (12.0-15.0) g/dL Hct (37.2-46.3) % MCHC (32.0-37.0) g/dL RDW (11.5-14.5) % Immature Gran # (0.00-0.04) X 10*3/uL Neutrophils # (1.80-7.70) X 10*3/uL Lymphocytes # (1.0-4.8) k/uL Eosinophils # (0.04-0.35) X 10*3/uL Sodium (137-145) mmol/L BUN (7-17) mg/dL Creatinine (0.52-1.04) mg/dL Est GFR (CKD-EPI)AfAm (60.0-200.0) Est GFR (CKD-EPI)NonAf (60.0-200.0) Glucose (70-110) mg/dL POC Glucose (mg/dL) 175 H 204 H (70-110) mg/dL Hemoglobin A1c (0.0-6.0) % Calcium (8.4-10.2) mg/dL AST (14-36) U/L ALT (4-34) U/L Alkaline Phosphatase (38-126) U/L Troponin I (0.000-0.034) ng/mL Total Protein (6.3-8.2) g/dL Albumin (3.5-5.0) g/dL Procalcitonin (0.02-0.09) ng/mL Urine Glucose (UA) 4+ H (Negative) Urine Blood Small H (Negative) Urine RBC 7 H (0-5) /hpf Urine Mucus Rare H (None) /hpf 11/28/21 11/29/21 11/29/21 Range/Units 20:04 04:00 04:00 WBC 13.3 H (4.50-10.00) X 10*3/uL RBC (4.10-5.20) X 10*6/uL Hgb (12.0-15.0) g/dL Hct (37.2-46.3) % MCHC (32.0-37.0) g/dL RDW (11.5-14.5) % Immature Gran # (0.00-0.04) X 10*3/uL Neutrophils # 10.9 H (1.80-7.70) X 10*3/uL Lymphocytes # 0.9 L (1.0-4.8) k/uL Eosinophils # (0.04-0.35) X 10*3/uL Sodium 136 L (137-145) mmol/L BUN 30 H (7-17) mg/dL Creatinine 1.53 H (0.52-1.04) mg/dL Est GFR (CKD-EPI)AfAm (60.0-200.0) Est GFR (CKD-EPI)NonAf (60.0-200.0) Glucose (70-110) mg/dL POC Glucose (mg/dL) 172 H (70-110) mg/dL Hemoglobin A1c (0.0-6.0) % Calcium 8.3 L (8.4-10.2) mg/dL AST 204 H (14-36) U/L ALT 122 H (4-34) U/L Alkaline Phosphatase 152 H (38-126) U/L Troponin I (0.000-0.034) ng/mL Total Protein 5.9 L (6.3-8.2) g/dL Albumin 3.2 L (3.5-5.0) g/dL Procalcitonin (0.02-0.09) ng/mL Urine Glucose (UA) (Negative) Urine Blood (Negative) Urine RBC (0-5) /hpf Urine Mucus (None) /hpf
--- NOTE | 2021-11-29 09:13 | P.PN ---
Subjective Progress Note Date: 11/29/21 This is a 76-year-old female patient of the transferred to the intensive care unit for increased shortness of breath. The patient was found to be in atrial fibrillation with rapid ventricular response and for that reason the patient got transferred to the ICU. The patient is currently postop day #4. The patient underwent a right partial nephrectomy. A CTA of the chest was done yesterday and the patient was found to have no evidence of any pulmonary embolism. Note that the patient was found to have a 3.5 cm right sided renal mass. Based on that, the patient was taken to the operating room for a nephrectomy. The patient is known to be having other comorbid conditions including hypertension, hyperlipidemia diabetes mellitus. The patient is also known to have CAD with previous CT. She has previous chronic catheterization and stenting.. This morning, the patient Got transferred to the intensive care unit the patient developed itchy fibrillation with rapid ventricular response. She is currently on the heart rate of 137, irregular with a blood pressure 113/75. She was placed on 100% nonrebreather facemask and her current pulse ox is 94%. The patient is also having some chest pain this morning. Morning chest pains. The patient is also having chest pain which is sternal, 6 out of 10 in severity. Cardiac enzymes are pending. EKG was done and it showed atrial fibrillation with a rapid ventricular response . I reviewed the EKG there is no significant ST segment changes. There is voltage criteria for LVH. There may be some inferior wall ST segment depression. The chest x-ray also showed some limited bibasilar pulmonary infiltrates along with some cardiomegaly. Lung volumes are essentially small. The patient is currently postoperative day #4. IV fluids are currently at KVO. The patient came in to the ICU and she was given amiodarone bolus initially at a dose of 150 mg of following that she was started on a maintenance of 1 mg/m. I also reviewed the CTA of the chest that was done on 11/27/2021. As mentioned, there is evidence of a pulmonary embolism. There is significant atelectatic changes in the lung bases bilaterally. No reported aspiration. She has an incentive spirometer at the bedside. In terms of her blood work, the patient's white cell count that is a 50 point the XII.5 and a platelet count of 204. Electrolytes from yesterday were all within normal limits with the B 20/20 creatinine 1.09. Sodium is 136. Cardiac enzymes are still pending. The patient is diabetic and she is on a combination of antihypertensive diabetic medication. She is on Dilaudid for pain control. She is also on IV Zosyn that was started 11/26/21 as an empiric antibiotic coverage.the patient had an echocardiogram on 05/05/2021 that showed segmental wall motion abnormalities involving the anterior wall, inferior wall of the septal wall. Ejection fraction was around 45-50%. The LV size was normal. No significant valvular abnormalities were noted. No significant pulmonary hypertension. Her previous cardiac catheterization was done in April 2021. She has undergone stenting to the LAD and subsequently to the circumflex. As such, the patient has stool coronary stents and the patient was receiving dual antiplatelet treatment on outpatient basis. On 11/29/2021, the patient continues to have shortness of breath and she is still struggling with her breathing and she is quite tachypneic with respiratory rate ranging between 30 and 40 breasts a minute. She remains on a BiPAP at a pressure of 12 was 6 cm of water FiO2 of 80%. She was transitioned from 100% nonrebreather with a high flow and later on her BiPAP. Chest x-ray showing infiltration of the lung base bilaterally. The patient was given a total of 2 doses of Lasix yesterday and her creatinine is currently up to 1.5. She did convert into normal sinus rhythm. She is normotensive for now. Echocardiogram from today is still pending. Meanwhile, her fluid balance is -560 mL over the past 24 hours. In terms of her labs, the whites of +0.3 with a hemoglobin 11.5 and a platelet count of 211. Sodium is 136, potassium of 4.2, BNP is a 30 with creatinine of 1.5. LFTs are still slightly abnormal. Abdomen is distended. Surgical 1 sets of dry clean and uninfected troponin peaked at 1.4. IV heparin was contemplated. Nevertheless, I had a discussion with urology who opted not t o put the patient to coagulation due to concerns of bleeding within the kidney surgical sites. The patient remains on IV Zosyn for now as an empiric antibiotic coverage. She is also on metoprolol 25 mg by mouth twice a day. Objective - Vital Signs Vital signs: Vital Signs Temp 99.0 F 11/29/21 04:00 Pulse 68 11/29/21 08:51 Resp 26 H 11/29/21 07:00 BP 91/48 11/29/21 07:00 Pulse Ox 96 11/29/21 07:00 FiO2 80 11/29/21 08:59 Intake & Output 11/28/21 11/29/21 11/29/21 18:59 06:59 18:59 Intake Total 260 576.116 20 Output Total 750 650 Balance -490 -73.884 20 Weight 75.7 kg Intake: IV 260 340 20 0.9 160 240 20 Piperacillin-Tazobactam 3 100 100 .375 gm In Sodium Chloride 0.9% 100 ml @ 25 mls/hr IVPB Q8H [facility] Rx#: [id number] Intake, IV Titration 236.116 Amount Amiodarone 450 mg In 236.116 Dextrose 5% in Water 250 ml @ 0.5 MG/MIN 16.667 mls/hr IV .Q15H [facility] Rx#: [id number] Output: Urine 750 650 Other: Voiding Method External Catheter External Catheter # Voids 1 - Exam General appearance the patient is in mild to moderate degree of respiratory distress currently On BIPAP 12/6, 80% Head exam was generally normal. There was no scleral icterus or corneal arcus. Mucous membranes were moist. Neck was supple and without jugular venous distension, thyromegaly, or carotid bruits. Carotids were easily palpable bilaterally. There was no adenopathy. Lungs sounds are diminished in the patient's w has crackles within the lower lung goodrich bilaterally Heart sounds are irregular, consistent with the fibrillation with rapid ventricular response, no significant murmurs could be appreciated. Abdomen is soft. Bowel sounds are sluggish. Surgical wounds are dry and the patient has multiple surgical sides related to recent nephrectomy. Minimal direct tenderness. No rebound tenderness. No guarding. Examination of the extremities revealed easily palpable radial, femoral and pedal pulses. There was no cyanosis, clubbing or edema. Examination of the skin revealed no evidence of significant rashes, suspicious appearing nevi or other concerning lesions. Neurologically, the patient is awake and alert and the patient does not have any focal neurological deficit. Cranial nerves are essentially intact. - Labs CBC & Chem 7: 11/29/21 04:00 11/29/21 04:00 Labs: Abnormal Lab Results - Last 24 Hours (Table) 11/28/21 11/28/21 11/28/21 Range/Units 05:27 05:27 07:34 WBC (3.8-10.6) k/uL Neutrophils # (1.3-7.7) k/uL Lymphocytes # (1.0-4.8) k/uL Sodium (137-145) mmol/L BUN (7-17) mg/dL Creatinine (0.52-1.04) mg/dL Est GFR (CKD-EPI)AfAm 51.6 L (60.0-200.0) Est GFR (CKD-EPI)NonAf 44.5 L (60.0-200.0) Glucose 39 L* (70-110) mg/dL POC Glucose (mg/dL) (70-110) mg/dL Hemoglobin A1c 6.6 H (0.0-6.0) % Calcium (8.4-10.2) mg/dL AST (14-36) U/L ALT (4-34) U/L Alkaline Phosphatase (38-126) U/L Total Protein (6.3-8.2) g/dL Albumin (3.5-5.0) g/dL Procalcitonin 0.53 H (0.02-0.09) ng/mL Urine Glucose (UA) (Negative) Urine Blood (Negative) Urine RBC (0-5) /hpf Urine Mucus (None) /hpf 11/28/21 11/28/21 11/28/21 Range/Units 09:32 12:29 12:45 WBC (3.8-10.6) k/uL Neutrophils # (1.3-7.7) k/uL Lymphocytes # (1.0-4.8) k/uL Sodium (137-145) mmol/L BUN (7-17) mg/dL Creatinine (0.52-1.04) mg/dL Est GFR (CKD-EPI)AfAm (60.0-200.0) Est GFR (CKD-EPI)NonAf (60.0-200.0) Glucose (70-110) mg/dL POC Glucose (mg/dL) 156 H 175 H (70-110) mg/dL Hemoglobin A1c (0.0-6.0) % Calcium (8.4-10.2) mg/dL AST (14-36) U/L ALT (4-34) U/L Alkaline Phosphatase (38-126) U/L Total Protein (6.3-8.2) g/dL Albumin (3.5-5.0) g/dL Procalcitonin (0.02-0.09) ng/mL Urine Glucose (UA) 4+ H (Negative) Urine Blood Small H (Negative) Urine RBC 7 H (0-5) /hpf Urine Mucus Rare H (None) /hpf 11/28/21 11/28/21 11/29/21 Range/Units 17:20 20:04 04:00 WBC 13.3 H (3.8-10.6) k/uL Neutrophils # 10.9 H (1.3-7.7) k/uL Lymphocytes # 0.9 L (1.0-4.8) k/uL Sodium (137-145) mmol/L BUN (7-17) mg/dL Creatinine (0.52-1.04) mg/dL Est GFR (CKD-EPI)AfAm (60.0-200.0) Est GFR (CKD-EPI)NonAf (60.0-200.0) Glucose (70-110) mg/dL POC Glucose (mg/dL) 204 H 172 H (70-110) mg/dL Hemoglobin A1c (0.0-6.0) % Calcium (8.4-10.2) mg/dL AST (14-36) U/L ALT (4-34) U/L Alkaline Phosphatase (38-126) U/L Total Protein (6.3-8.2) g/dL Albumin (3.5-5.0) g/dL Procalcitonin (0.02-0.09) ng/mL Urine Glucose (UA) (Negative) Urine Blood (Negative) Urine RBC (0-5) /hpf Urine Mucus (None) /hpf 11/29/21 Range/Units 04:00 WBC (3.8-10.6) k/uL Neutrophils # (1.3-7.7) k/uL Lymphocytes # (1.0-4.8) k/uL Sodium 136 L (137-145) mmol/L BUN 30 H (7-17) mg/dL Creatinine 1.53 H (0.52-1.04) mg/dL Est GFR (CKD-EPI)AfAm (60.0-200.0) Est GFR (CKD-EPI)NonAf (60.0-200.0) Glucose (70-110) mg/dL POC Glucose (mg/dL) (70-110) mg/dL Hemoglobin A1c (0.0-6.0) % Calcium 8.3 L (8.4-10.2) mg/dL AST 204 H (14-36) U/L ALT 122 H (4-34) U/L Alkaline Phosphatase 152 H (38-126) U/L Total Protein 5.9 L (6.3-8.2) g/dL Albumin 3.2 L (3.5-5.0) g/dL Procalcitonin (0.02-0.09) ng/mL Urine Glucose (UA) (Negative) Urine Blood (Negative) Urine RBC (0-5) /hpf Urine Mucus (None) /hpf Assessment and Plan Plan: New onset atrial fibrillation with rapid ventricular response, converted into normal sinus rhythm Acute non-ST segment elevation myocardial infarction. The patient had ST segm ent depression on yesterday's EKG. No IV heparin was utilized due to urology's concern of bleeding postop. Chest pain with an underlying history of coronary artery disease, rule out underlying angina versus chest pain related to the tachycardia induced by itchy fibrillation. EKG showing some ST segment depressions along the inferior leads. Currently back into normal sinus rhythm and the patient is currently free of any chest pain Acute hypoxic respiratory failure currently on 100% on with a facemask and subsequently moved into a BiPAP mask and the patient is currently on a BiPAP at a pressure of 12/6 cm of water with FiO2 of 80% and a chest x-ray showing limited infiltration in the lung bases and the patient continues to have crackles in the lung bases bilaterally. Diabetes yesterday with limited success. Rule out pneumonia. Pro-calcitonin level was at 0.53. History of nephrectomy, right sided for a renal mass and the patient is postoperative day #5. This was done robotically and the patient has the drain taken out history of coronary artery disease with previous stenting of the circumflex and lad diabetes mellitus hypertension hyperlipidemia macular degeneration CAMILO and Cr 1.5 plan Keep the patient on a BiPAP for now No more diuretics Obtain a noncontrast CAT scan of the chest IV fluids at KVO Stop the amiodarone and put the patient on metoprolol 25 mg twice a day No anticoagulants for now Continue IV Zosyn and repeat a pro-calcitonin level for tomorrow Awaiting echocardiogram Increase lactulose for further respirator Patient is passing flatness and there is no indication for underlying ileus Continue with bedrest for now sliding scale insulin coverage We'll continue to follow
[2021-11-29] MEDS: HYDROcodone/APAP 5-325MG 1 EACH TAB PO PRN ×4 (10:19→20:50)
[2021-11-29] MEDS: DOCUSATE 100 MG CAP PO SCH (10:21)
[2021-11-29] MEDS: METOPROLOL TARTRATE 25 MG TAB PO SCH ×2 (10:21→20:50)
[2021-11-29 11:21] LABS: Glucose,Whole Blood 90 mg/dL (70-110)
[2021-11-29] MEDS: ASPIRIN 81 MG PO SCH (11:33)
--- NOTE | 2021-11-29 13:50 | CT ---
EXAMINATION TYPE: CT chest abdomen wo con DATE OF EXAM: 11/29/2021 COMPARISON: Chest 11/26/2021 and abdomen 09/26/2021 HISTORY: 76-year-old female Rt renal mass, Hypoxemia TECHNIQUE: Contiguous axial scanning of the chest and abdomen without IV contrast. Coronal and sagitt al reconstructions performed. CT DLP: 603.1 mGycm Automated exposure control for dose reduction was used. FINDINGS: CHEST: Heart border line in size without pericardial effusion. Three-vessel coronary artery calcifications a re present in the remarkable for coronary artery disease. Aorta normal caliber with a conventional vessel branching anatomy and mild to moderate atheroscleroti c arch calcifications. Mildly enlarged caliber to the main right and left pulmonary arteries measuring up to 2.9 cm suggesti ng underlying pulmonary arterial hypertension. Possible 1.8 cm isthmic nodule of the thyroid gland. Further thyroid ultrasound evaluation recommende d to determine the need for FNA. No thoracic lymphadenopathy by CT size criteria. There is ongoing bibasilar airspace disease with associated air bronchograms. Changes have slightly w orsened at the left base. A trace right pleural effusion is noted. ABDOMEN: Noncontrast liver shows borderline in size at 17.6 cm. Gallbladder surgically absent. Mild thickening of the left adrenal gland without discrete nodularity. Right adrenal gland and pancreas show no gross abnormality by noncontrast technique. Small anterior splenule. A 2.1 cm hypodense lesion of the spleen remains unchanged. Underlying bilateral parapelvic cysts in the kidneys redemonstrated. Interval postsurgical change along the posterior aspect of the right kidney. Extensive adjacent confl uent edema and increased density is present measuring up to 7.0 cm craniocaudal by 3.1 cm wide by 2.2 cm AP. Some underlying surgical material is present. Extensive edema and strandy fluid is present ex tending down the right retroperitoneum and right perinephric space. There is a 2.2 x 1.6 cm oval soft tissue nodule along the lateral inferior right perinephric space. Suspect some hemorrhagic material thickening the right pericaval region. Moderate prostatic calcifications abdominal aorta and proximal common iliac arteries. Mild generalized anasarca change. Suspect chronically calcified granuloma partially visualized posterior upper right buttock subcutaneo us adipose layer. No dilated small bowel, free fluid, or free air. Mild stool. No pericolonic inflammatory change. BONES: Moderate degenerative disc disease L5-S1. Facet arthropathy lower lumbar spine. Osteopenia. IMPRESSION: 1. Findings suggest interval surgery to the right kidney. There is confluent perinephric edema along the posterior margin of the kidney at the site of surgical material measuring up to 7.0 x 3.1 x 2.2 c m. Correlate as to time since surgery. Perinephric hemorrhage/hematoma suspected. Stranding and patch y perinephric density extends inferiorly and to the right pericaval region likely additional areas of strandy hemorrhage. 2. Nonspecific 2.2 x 1.6 cm oval soft tissue nodule lateral right perinephric space. This could repre sent an additional small focal hematoma. Appropriate follow-up recommended to exclude a metastatic de posit. 3. Continued pronounced bibasilar airspace disease and volume loss. Correlate for infectious or aspir ation pneumonitis. Aeration has slightly worsened at the left base now. Development of a trace right pleural effusion.
--- NOTE | 2021-11-29 16:03 | P.PN ---
Subjective Progress Note Date: 11/29/21 This is a 76 year old male, post operative day #4 right partial nephrectomy for known history of right renal mass. Patients hospital stay complicated by shortness of breath and hypoxia, with chest pain. A team was called this morning and patient has been transferred to intensive care unit for close monitoring. Found to be in atrial fibrillation with rapid ventricular rate and received amiodarone bolus and continues on amiodarone infusion, pending cardiology consultation. Patient also received a dose of IV lasix 40 mg today. D-Dimer elevated at 0.96, chest CTA is negative for pulmonary embolism. Chest xray showing patchy bibasilar infiltrates. Continues on bronchodilators, empiric antibiotics with IV zosyn. Echocardiogram completed in April of this year shows an EF of 45-50% with LV wall hypokinesis, mild MR, mild TR. Labs reviewed today showing a white count of 13.2, sodium 136, beyond 20, creatinine 1.25. He does have troponin elevation at 1.400. Liver enzymes are also elevated, proBNP 662. Covid negative. He remains afebrile, heart rate 140 8H fibrillation, blood pressure 101/73, patient is on a non rebreather at 15 L. Patient is on a combination of amlodipine/benazepril daily which we will hold at this time secondary to low normal BPs. 11/29/2021 Patient is evaluated today in intensive care unit. Converted to normal sinus rhythm yesterday afternoon and amiodarone has been discontinued. Urology recommending for patient to hold anticoagulation currently and eliquis has been stopped at this time. Troponins have been trended and increased up to 41.000. Cardiology following patient. Echocardiogram has been ordered. Patient had chest xray this morning showing basilar pneumonia with findings similar to previous exam with associated effusion. Follow up abdomen chest CT showing possible perinephric hemorrhage/hematoma. with possible additional areas of strandy hemorrhage in the right pericaval region. Also, possible small focal hematoma vs. metastatic deposit in lateral right perinephric space. There is possible infectious or aspiration pneumonitis with trace right pleural effusion. No pericardial effusion. There is coronary artery disease evident. Patient continues on BiPAP with FiO2 of 88%, afebrile, maintaining normal sinus rhythm heart rate 82, blood pressure 106/59. Continues on IV zosyn. Labs reviewed showing BUN 30, creatinine 1.53, AST 204, ALT 122, alk phos 152 which have increased. Review of Systems Constitutional: Reports fatigue, has felt feverish Cardio vascular: denied any chest pain, palpitations Gastrointestinal: denied any nausea, vomiting, diarrhea. Passing gas, has not had a BM in 5 days. Dysuria improved. Pulmonary: Reports shortness of breath, reports cough Neurologic denied any new focal deficits All inpatient medications were reviewed and appropriate changes in these medications as dictated in the interval history and assessment and plan. PHYSICAL EXAMINATION: GENERAL: The patient is alert and oriented x3, currently on BiPAP, appears fatigued. Well developed, well nourished. HEENT: Pupils are round and equally reacting to light. EOMI. No scleral icterus. No conjunctival pallor. Normocephalic, atraumatic. No pharyngeal erythema. No thyromegaly. CARDIOVASCULAR: S1 and S2 present. No murmurs, rubs, or gallops. Irregular rate and rhythm, tachycardic PULMONARY: Chest is clear to auscultation, no wheezing or crackles. ABDOMEN: Soft, mild generalied tenderness, distended, normoactive bowel sounds. No palpable organomegaly. MUSCULOSKELETAL: No joint swelling or deformity. EXTREMITIES: No cyanosis, clubbing, or pedal edema. NEUROLOGICAL: Gross neurological examination did not reveal any focal deficits. SKIN: No rashes. Assessment and plan Assessment Acute hypoxic respiratory failure secondary to possible bilateral pneumonia New-onset atrial fibrillation with rapid ventricular rate, converted to normal sinus rhythm. Troponin elevation under investigation Mild acute renal injury Status post op day #5 robotic partial right nephrectomy, Diabetes mellitus type 2 Hypertension currently blood pressure is 100 systolic Hyperlipidemia History coronary artery disease status post cardiac stents in the past GI Prophylaxis: DVT Prophylaxis: As per primary service, currently holding Full Code Plan Patient is being monitored in intensive care unit currently on BiPAP with FiO2 of 55%. Echocardiogram pending Continue empiric antibiotic coverage, bronchodilators Hold amlodipine/benazepril combination Procalcitonin level repeat in AM Urology following Repeat labs in AM The impression and plan of care has been dictated by Irma Alvarado Nurse Practitioner as directed. Dr. Ian MD I have performed a history and physical examination and medical decision making of this patient, discussed the same with the dictator, and agree with the dictators assessment and plan as written, documented as a scribe. Based on total visit time, I have performed more than 50% of this visit. Objective - Vital Signs Vital signs: Vital Signs Temp 97.7 F 11/29/21 15:00 Pulse 82 11/29/21 15:30 Resp 31 H 11/29/21 14:00 BP 106/59 11/29/21 15:30 Pulse Ox 95 11/29/21 15:30 FiO2 88 11/29/21 12:35 Intake & Output 11/28/21 11/29/21 11/29/21 18:59 06:59 18:59 Intake Total 260 576.116 610 Output Total 750 650 400 Balance -490 -73.884 210 Weight 75.7 kg 75.7 kg Intake: IV 260 340 260 0.9 160 240 160 Piperacillin-Tazobactam 3 100 100 100 .375 gm In Sodium Chloride 0.9% 100 ml @ 25 mls/hr IVPB Q8H [facility] Rx#: [id number] Intake, IV Titration 236.116 Amount Amiodarone 450 mg In 236.116 Dextrose 5% in Water 250 ml @ 0.5 MG/MIN 16.667 mls/hr IV .Q15H [facility] Rx#: [id number] Oral 350 Output: Urine 750 650 400 Other: Voiding Method External Catheter External Catheter External Catheter # Voids 1 1 - Labs CBC & Chem 7: 11/29/21 04:00 11/29/21 04:00 Labs: Abnormal Lab Results - Last 24 Hours (Table) 11/28/21 11/28/21 11/28/21 Range/Units 05:27 17:20 20:04 WBC (3.8-10.6) k/uL Neutrophils # (1.3-7.7) k/uL Lymphocytes # (1.0-4.8) k/uL Sodium (137-145) mmol/L BUN (7-17) mg/dL Creatinine (0.52-1.04) mg/dL POC Glucose (mg/dL) 204 H 172 H (70-110) mg/dL Hemoglobin A1c 6.6 H (0.0-6.0) % Calcium (8.4-10.2) mg/dL AST (14-36) U/L ALT (4-34) U/L Alkaline Phosphatase (38-126) U/L Troponin I (0.000-0.034) ng/mL Total Protein (6.3-8.2) g/dL Albumin (3.5-5.0) g/dL 11/29/21 11/29/21 11/29/21 Range/Units 04:00 04:00 04:00 WBC 13.3 H (3.8-10.6) k/uL Neutrophils # 10.9 H (1.3-7.7) k/uL Lymphocytes # 0.9 L (1.0-4.8) k/uL Sodium 136 L (137-145) mmol/L BUN 30 H (7-17) mg/dL Creatinine 1.53 H (0.52-1.04) mg/dL POC Glucose (mg/dL) (70-110) mg/dL Hemoglobin A1c (0.0-6.0) % Calcium 8.3 L (8.4-10.2) mg/dL AST 204 H (14-36) U/L ALT 122 H (4-34) U/L Alkaline Phosphatase 152 H (38-126) U/L Troponin I 41.000 H* (0.000-0.034) ng/mL Total Protein 5.9 L (6.3-8.2) g/dL Albumin 3.2 L (3.5-5.0) g/dL Assessment and Plan Time with Patient: Less than 30
[2021-11-29 16:32] LABS: Glucose,Whole Blood 164 mg/dL (70-110)
[2021-11-29 20:32] LABS: Glucose,Whole Blood 164 mg/dL (70-110)
[2021-11-29] MEDS: ATORVASTATIN 80 MG TAB PO SCH (20:50)
[2021-11-30] MEDS: HYDROmorphone 1 MG/ML 1 ML SYRINGE IVP PRN (03:57)
[2021-11-30] MEDS: PIPERACILLIN-TAZOBACTAM 3.375 GM in SODIUM CHLORIDE 0.9% 100 ML IVPB SCH ×3 (03:58→20:53)
[2021-11-30 04:41] LABS: Albumin 3.1 g/dL (3.5-5.0); Calcium 8.7 mg/dL (8.4-10.2); Total Protein 5.9 g/dL (6.3-8.2)
[2021-11-30 04:52] LABS: Basophils % (A) 0 %; Eosinophils # (A) 0.3 k/uL (0-0.7); Eosinophils % (A) 3 %; HCT 33.4 % (34.0-46.0); HGB 11.1 gm/dL (11.4-16.0); Lymphocytes # (A) 0.6 k/uL (1.0-4.8); Lymphocytes % (A) 5 %; MCH 29.4 pg (25.0-35.0); MCHC 33.2 g/dL (31.0-37.0); MCV 88.5 fL (80.0-100.0); Mean Platelet Volume 8.5; Monocytes # (A) 0.7 k/uL (0-1.0); Monocytes % (A) 5 %; Neutrophils # (A) 11.6 k/uL (1.3-7.7); Neutrophils % (A) 87 %; Platelet Count 209 k/uL (150-450); RBC 3.78 m/uL (3.80-5.40); WBC 13.4 k/uL (3.8-10.6)
[2021-11-30 07:08] LABS: Glucose,Whole Blood 88 mg/dL (70-110)
[2021-11-30] MEDS: INSULIN ASPART (NovoLOG) 100 UNIT/ML VIAL SQ SCH ×4 (07:19→20:54)
[2021-11-30] MEDS: IPRATROPIUM-ALBUTEROL 3 ML NEB INHALATION SCH ×4 (07:21→20:26)
--- NOTE | 2021-11-30 07:47 | XR ---
EXAMINATION TYPE: XR chest 1V portable DATE OF EXAM: 11/30/2021 Comparison: 11/29/2021 Clinical History: 76-year-old female PNA Findings: Slight leftward patient rotation alters the normal cardiomediastinal contours. Heart appears borderli ne enlarged. Atherosclerotic calcifications within the thoracic aorta. Continued dense retrocardiac a nd left basilar opacity. Interstitial opacity and patchy airspace opacity in the right lower lung is increasing now. Impression: 1. Rotated exam. Cardiomegaly with increasing interstitial opacities. Correlate for developing pulmon attila vascular congestion. 2. Continued dense consolidation retrocardiac region and left base but also new developing patchy nancy ma or infiltrate at the right lower lung as well.
[2021-11-30] MEDS: ASPIRIN 81 MG PO SCH (08:50)
[2021-11-30] MEDS: DOCUSATE 100 MG CAP PO SCH (08:50)
[2021-11-30] MEDS: METOPROLOL TARTRATE 25 MG TAB PO SCH ×2 (08:50→20:53)
[2021-11-30] MEDS: methocarbamoL 750 MG TAB PO SCH ×4 (08:54→20:54)
[2021-11-30] MEDS: HYDROcodone/APAP 5-325MG 1 EACH TAB PO PRN ×4 (08:55→23:12)
--- NOTE | 2021-11-30 10:08 | P.PN ---
Subjective Progress Note Date: 11/30/21 This is a 76-year-old female patient of the transferred to the intensive care unit for increased shortness of breath. The patient was found to be in atrial fibrillation with rapid ventricular response and for that reason the patient got transferred to the ICU. The patient is currently postop day #4. The patient underwent a right partial nephrectomy. A CTA of the chest was done yesterday and the patient was found to have no evidence of any pulmonary embolism. Note that the patient was found to have a 3.5 cm right sided renal mass. Based on that, the patient was taken to the operating room for a nephrectomy. The patient is known to be having other comorbid conditions including hypertension, hyperlipidemia diabetes mellitus. The patient is also known to have CAD with previous [place]. She has previous chronic catheterization and stenting.. This morning, the patient Got transferred to the intensive care unit the patient developed itchy fibrillation with rapid ventricular response. She is currently on the heart rate of 137, irregular with a blood pressure 113/75. She was placed on 100% nonrebreather facemask and her current pulse ox is 94%. The patient is also having some chest pain this morning. Morning chest pains. The patient is also having chest pain which is sternal, 6 out of 10 in severity. Cardiac enzymes are pending. EKG was done and it showed atrial fibrillation with a rapid ventricular response . I reviewed the EKG there is no significant ST segment changes. There is voltage criteria for LVH. There may be some inferior wall ST segment depression. The chest x-ray also showed some limited bibasilar pulmonary infiltrates along with some cardiomegaly. Lung volumes are essentially small. The patient is currently postoperative day #4. IV fluids are currently at KVO. The patient came in to the ICU and she was given amiodarone bolus initially at a dose of 150 mg of following that she was started on a maintenance of 1 mg/m. I also reviewed the CTA of the chest that was done on 11/27/2021. As mentioned, there is evidence of a pulmonary embolism. There is significant atelectatic changes in the lung bases bilaterally. No reported aspiration. She has an incentive spirometer at the bedside. In terms of her blood work, the patient's white cell count that is a 50 point the XII.5 and a platelet count of 204. Electrolytes from yesterday were all within normal limits with the B 20/20 creatinine 1.09. Sodium is 136. Cardiac enzymes are still pending. The patient is diabetic and she is on a combination of antihypertensive diabetic medication. She is on Dilaudid for pain control. She is also on IV Zosyn that was started 11/26/21 as an empiric antibiotic coverage.the patient had an echocardiogram on 05/05/2021 that showed segmental wall motion abnormalities involving the anterior wall, inferior wall of the septal wall. Ejection fraction was around 45-50%. The LV size was normal. No significant valvular abnormalities were noted. No significant pulmonary hypertension. Her previous cardiac catheterization was done in April 2021. She has undergone stenting to the LAD and subsequently to the circumflex. As such, the patient has stool coronary stents and the patient was receiving dual antiplatelet treatment on outpatient basis. On 11/29/2021, the patient continues to have shortness of breath and she is still struggling with her breathing and she is quite tachypneic with respiratory rate ranging between 30 and 40 breasts a minute. She remains on a BiPAP at a pressure of 12 was 6 cm of water FiO2 of 80%. She was transitioned from 100% nonrebreather with a high flow and later on her BiPAP. Chest x-ray showing infiltration of the lung base bilaterally. The patient was given a total of 2 doses of Lasix yesterday and her creatinine is currently up to 1.5. She did convert into normal sinus rhythm. She is normotensive for now. Echocardiogram from today is still pending. Meanwhile, her fluid balance is -560 mL over the past 24 hours. In terms of her labs, the whites of +0.3 with a hemoglobin 11.5 and a platelet count of 211. Sodium is 136, potassium of 4.2, BNP is a 30 with creatinine of 1.5. LFTs are still slightly abnormal. Abdomen is distended. Surgical 1 sets of dry clean and uninfected troponin peaked at 1.4. IV heparin was contemplated. Nevertheless, I had a discussion with urology who opted not t o put the patient to coagulation due to concerns of bleeding within the kidney surgical sites. The patient remains on IV Zosyn for now as an empiric antibiotic coverage. She is also on metoprolol 25 mg by mouth twice a day. 2021, patient is being seen postop day #6 following her partial nephrectomy on the right. She developed an acute non-ST segment elevation myocardial infarction and bilateral pneumonia and this controlled the patient to an acute hypoxic respiratory failure. The patient was on a BiPAP and currently she is on high flow oxygen at 60 L in a fight over 85%. I performed a CAT scan of the chest and abdomen yesterday and the CAT scan of the chest showed extensive lower lobe consolidation bilaterally consistent with pneumonia. CAT scan of the abdomen showed postsurgical changes along the posterior aspect of the right kidney. There was extensive adjacent edema with increased density up to 7 cm in size by 3.1 cm in size. Some underlying surgical material is present. There is extensive edema and stranding fluid extending down to the right retroperitoneum in the right perinephric space. Suspect some hemorrhagic material along the surgical bed. In summary, the findings were consistent with perinephric edema and some area of suspected hemorrhagic stranding. There was another area of 2.2 cm oval often she'll nodule lateral to the right perinephric space and this was also suspected to be a focal area of hematoma. Based on all this, no antiplatelet agents or IV heparin was provided. The patient remains hemodynamically stable. Echocardiogram was ordered. The patient was kept on IV Zosyn. 4 calcitonin level was mildly elevated. White cell count of 15.4 with a hemoglobin of 11.1. Creatinine is also stable at 1.58 with a BUN of 34. LFTs are abnormal with an AST of 13 the bilirubin is also normal. Bilirubin is normal. Surgical notes is also normal. No abdominal distention. The patient is passing factors at this point in time. Bilirubin is normal bilirubin is normal, AST is 143, ALt of 103 alkaline phosphatase of 193. The patient is passing flatus. The patient has clear surgical wound site. Objective - Vital Signs Vital signs: Vital Signs Temp 97.8 F 11/30/21 04:00 Pulse 74 11/30/21 07:35 Resp 21 11/30/21 06:30 BP 120/59 11/30/21 06:30 Pulse Ox 95 11/30/21 07:26 FiO2 88 11/30/21 07:26 Intake & Output 11/29/21 11/30/21 11/30/21 18:59 06:59 18:59 Intake Total 1450 340 Output Total 400 800 0 Balance 1050 -460 0 Weight 75.7 kg 75.1 kg Intake: IV 340 340 0.9 240 240 Piperacillin-Tazobactam 3 100 100 .375 gm In Sodium Chloride 0.9% 100 ml @ 25 mls/hr IVPB Q8H [facility] Rx#: [id number] Oral 1110 0 Output: Urine 400 800 0 Other: Voiding Method External Catheter External Catheter # Voids 1 0 - Exam General appearance the patient is in mild to moderate degree of respiratory distress currently On BIPAP 12/6, 80% Head exam was generally normal. There was no scleral icterus or corneal arcus. Mucous membranes were moist. Neck was supple and without jugular venous distension, thyromegaly, or carotid bruits. Carotids were easily palpable bilaterally. There was no adenopathy. Lungs sounds are diminished in the patient's w has crackles within the lower lung goodrcih bilaterally Heart sounds are irregular, consistent with the fibrillation with rapid ventricular response, no significant murmurs could be appreciated. Abdomen is soft. Bowel sounds are sluggish. Surgical wounds are dry and the patient has multiple surgical sides related to recent nephrectomy. Minimal direct tenderness. No rebound tenderness. No guarding. Examination of the extremities revealed easily palpable radial, femoral and p edal pulses. There was no cyanosis, clubbing or edema. Examination of the skin revealed no evidence of significant rashes, suspicious appearing nevi or other concerning lesions. Neurologically, the patient is awake and alert and the patient does not have any focal neurological deficit. Cranial nerves are essentially intact. - Labs CBC & Chem 7: 11/30/21 03:38 11/30/21 03:38 Labs: Abnormal Lab Results - Last 24 Hours (Table) 11/29/21 11/29/21 11/29/21 Range/Units 04:00 16:29 20:30 WBC (3.8-10.6) k/uL RBC (3.80-5.40) m/uL Hgb (11.4-16.0) gm/dL Hct (34.0-46.0) % Neutrophils # (1.3-7.7) k/uL Lymphocytes # (1.0-4.8) k/uL BUN (7-17) mg/dL Creatinine (0.52-1.04) mg/dL POC Glucose (mg/dL) 164 H 164 H (70-110) mg/dL AST (14-36) U/L ALT (4-34) U/L Alkaline Phosphatase (38-126) U/L Troponin I 41.000 H* (0.000-0.034) ng/mL Total Protein (6.3-8.2) g/dL Albumin (3.5-5.0) g/dL 11/30/21 11/30/21 Range/Units 03:38 03:38 WBC 13.4 H (3.8-10.6) k/uL RBC 3.78 L (3.80-5.40) m/uL Hgb 11.1 L (11.4-16.0) gm/dL Hct 33.4 L (34.0-46.0) % Neutrophils # 11.6 H (1.3-7.7) k/uL Lymphocytes # 0.6 L (1.0-4.8) k/uL BUN 34 H (7-17) mg/dL Creatinine 1.58 H (0.52-1.04) mg/dL POC Glucose (mg/dL) (70-110) mg/dL AST 134 H (14-36) U/L ALT 103 H (4-34) U/L Alkaline Phosphatase 193 H (38-126) U/L Troponin I (0.000-0.034) ng/mL Total Protein 5.9 L (6.3-8.2) g/dL Albumin 3.1 L (3.5-5.0) g/dL Assessment and Plan Plan: New onset atrial fibrillation with rapid ventricular response, converted into normal sinus rhythm Acute non-ST segment elevation myocardial infarction. The patient had ST segment depression on yesterday's EKG. No IV heparin was utilized due to urology's concern of bleeding postop. The patient's family chest pain and a troponin peak at 40 Chest pain with an underlying history of coronary artery disease, rule out underlying angina versus chest pain related to the tachycardia induced by itchy fibrillation. EKG showing some ST segment depressions along the inferior leads. Currently back into normal sinus rhythm and the patient is currently free of any chest pain Acute hypoxic respiratory failure currently on 100% on with a facemask and subsequently moved into a BiPAP mask and the patient is currently on a BiPAP at a pressure of 12/6 cm of water with FiO2 of 80% and a chest x-ray showing limited infiltration in the lung bases and the patient continues to have crackles in the lung bases bilaterally. Pro-calcitonin level was at 0.53. CAT scan of the chest was done and the patient was found to have extensive bilateral lower lobe consolidation consistent with pneumonia and the patient remains on IV Zosyn and the patient has been transitioned from BiPAP to high flow oxygen. History of nephrectomy, right sided for a renal mass and the patient is post operative day #6. This was done robotically and the patient has the drain taken out Perinephric edema and areas of suspected hemorrhage in the perinephric area. Hemoglobin is stable and the patient is currently on no anticoagulants and nontender guidance will be used based on urology recommendation. history of coronary artery disease with previous stenting of the circumflex and lad diabetes mellitus hypertension hyperlipidemia macular degeneration CAMILO and Cr 1.5 plan Keep the patient onairvo No diuretics IV fluids at KVO metoprolol 25 mg twice a day No anticoagulants for now Continue IV Zosyn and repeat a pro-calcitonin level for tomorrow Awaiting echocardiogram Increase lactulose for further respirator Patient is passing flatness and there is no indication for underlying ileus Continue with bedrest for now sliding scale insulin coverage echo today Repeat Procal We'll continue to follow
--- NOTE | 2021-11-30 11:04 | P.PN ---
Subjective Progress Note Date: 11/30/21 The patient is a 76-year-old female who is currently admitted to the hospital after undergoing a partial nephrectomy on 11/24/2021. Postoperative complications included A. fib with RVR and pneumonia. On 11/28/2021 patient was started on amiodarone drip, where she spontaneously converted back to sinus mec hanism. Overall the patient was in atrial fibrillation for less than 24 hours. On 11/29/2021, the patient had a rapid increase in liver enzymes as well as a peak troponin of 41. Computed tomography scan of the chest and abdomen showed bibasilar airspace disease as well as perinephric edema along the posterior margin, suggesting postoperative hemorrhage/hematoma. Echocardiogram revealed distal anteroseptal hypokinesis. The patient was interviewed and examined sitting up in the recliner chair. She states she is feeling much better overall. She denies any chest pain or pressure. No heart racing or fluttering. GENERAL: Well-appearing, well-nourished and in no acute distress. NECK: Supple without JVD or thyromegaly. LUNGS: Breath sounds clear to auscultation bilaterally. Respiration equal and unlabored. No wheezes, rales or rhonchi. HEART: Regular rate and rhythm without murmurs, rubs or gallops. S1 and S2 heard. EXTREMITIES: Normal range of motion, no edema. No clubbing or cyanosis. Peripheral pulses intact and strong. VITALS: Blood pressure 91/48, respiratory rate 26, pulse 62, SpO2 96% on BiPAP TELEMETRY: Sinus rhythm. Mild bradycardia overnight LABS: WBC 13.4, hemoglobin 11.1 and hematocrit 33.4, platelet 209, sodium 137, potassium 4.0, BUN 34, creatinine 1.58, AST 134, ALT 103, ALP 193 IMPRESSION: Atrial fibrillation with RVR, spontaneous conversion back to sinus rhythm within 24 hours Type II myocardial infarction, medical management with recent surgery Status post nephrectomy, postop day 6 Elevated liver enzymes History of coronary artery disease History diabetes mellitus History of hypertension PLAN: Recommend resuming antiplatelet therapy when cleared by the surgical team Continue medical management as she remains asymptomatic Further recommendations to be based on clinical course I am dictating on behalf of Dr Erwin Olivia's history/physical and assessment/plan. Objective - Vital Signs Vital signs: Vital Signs Temp 97.8 F 11/30/21 04:00 Pulse 74 11/30/21 07:35 Resp 21 11/30/21 06:30 BP 120/59 11/30/21 06:30 Pulse Ox 95 11/30/21 07:26 FiO2 88 11/30/21 07:26 Intake & Output 11/29/21 11/30/21 11/30/21 18:59 06:59 18:59 Intake Total 1450 340 140 Output Total 400 800 110 Balance 1050 -460 30 Weight 75.7 kg 75.1 kg Intake: IV 340 340 20 0.9 240 240 20 Piperacillin-Tazobactam 3 100 100 .375 gm In Sodium Chloride 0.9% 100 ml @ 25 mls/hr IVPB Q8H [facility] Rx#: [id number] Oral 1110 0 120 Output: Urine 400 800 110 Other: Voiding Method External Catheter External Catheter # Voids 1 0 - Labs CBC & Chem 7: 11/30/21 03:38 11/30/21 03:38 Labs: Abnormal Lab Results - Last 24 Hours (Table) 11/29/21 11/29/21 11/29/21 Range/Units 04:00 16:29 20:30 WBC (3.8-10.6) k/uL RBC (3.80-5.40) m/uL Hgb (11.4-16.0) gm/dL Hct (34.0-46.0) % Neutrophils # (1.3-7.7) k/uL Lymphocytes # (1.0-4.8) k/uL BUN (7-17) mg/dL Creatinine (0.52-1.04) mg/dL POC Glucose (mg/dL) 164 H 164 H (70-110) mg/dL AST (14-36) U/L ALT (4-34) U/L Alkaline Phosphatase (38-126) U/L Troponin I 41.000 H* (0.000-0.034) ng/mL Total Protein (6.3-8.2) g/dL Albumin (3.5-5.0) g/dL 11/30/21 11/30/21 Range/Units 03:38 03:38 WBC 13.4 H (3.8-10.6) k/uL RBC 3.78 L (3.80-5.40) m/uL Hgb 11.1 L (11.4-16.0) gm/dL Hct 33.4 L (34.0-46.0) % Neutrophils # 11.6 H (1.3-7.7) k/uL Lymphocytes # 0.6 L (1.0-4.8) k/uL BUN 34 H (7-17) mg/dL Creatinine 1.58 H (0.52-1.04) mg/dL POC Glucose (mg/dL) (70-110) mg/dL AST 134 H (14-36) U/L ALT 103 H (4-34) U/L Alkaline Phosphatase 193 H (38-126) U/L Troponin I (0.000-0.034) ng/mL Total Protein 5.9 L (6.3-8.2) g/dL Albumin 3.1 L (3.5-5.0) g/dL
[2021-11-30 11:29] LABS: Glucose,Whole Blood 164 mg/dL (70-110)
--- NOTE | 2021-11-30 12:39 | P.PN ---
Subjective Progress Note Date: 11/30/21 This is a 76 year old male, post operative day #4 right partial nephrectomy for known history of right renal mass. Patients hospital stay complicated by shortness of breath and hypoxia, with chest pain. A team was called this morning and patient has been transferred to intensive care unit for close monitoring. Found to be in atrial fibrillation with rapid ventricular rate and received amiodarone bolus and continues on amiodarone infusion, pending cardiology consultation. Patient also received a dose of IV lasix 40 mg today. D-Dimer elevated at 0.96, chest CTA is negative for pulmonary embolism. Chest xray showing patchy bibasilar infiltrates. Continues on bronchodilators, empiric antibiotics with IV zosyn. Echocardiogram completed in April of this year shows an EF of 45-50% with LV wall hypokinesis, mild MR, mild TR. Labs reviewed today showing a white count of 13.2, sodium 136, beyond 20, creatinine 1.25. He does have troponin elevation at 1.400. Liver enzymes are also elevated, proBNP 662. Covid negative. He remains afebrile, heart rate 140 8H fibrillation, blood pressure 101/73, patient is on a non rebreather at 15 L. Patient is on a combination of amlodipine/benazepril daily which we will hold at this time secondary to low normal BPs. 11/29/2021 Patient is evaluated today in intensive care unit. Converted to normal sinus rhythm yesterday afternoon and amiodarone has been discontinued. Urology recommending for patient to hold anticoagulation currently and eliquis has been stopped at this time. Troponins have been trended and increased up to 41.000. Cardiology following patient. Echocardiogram has been ordered. Patient had chest xray this morning showing basilar pneumonia with findings similar to previous exam with associated effusion. Follow up abdomen chest CT showing possible perinephric hemorrhage/hematoma. with possible additional areas of strandy hemorrhage in the right pericaval region. Also, possible small focal hematoma vs. metastatic deposit in lateral right perinephric space. There is possible infectious or aspiration pneumonitis with trace right pleural effusion. No pericardial effusion. There is coronary artery disease evident. Patient continues on BiPAP with FiO2 of 88%, afebrile, maintaining normal sinus rhythm heart rate 82, blood pressure 106/59. Continues on IV zosyn. Labs reviewed showing BUN 30, creatinine 1.53, AST 204, ALT 122, alk phos 152 which have increased. 11/30/2021 Patient continues to be monitored closely in intensive care unit. She has been transitioned from BiPAP onto high flow airvo oxygen support with 55/80. Had low grade fever 99.8 around midnight. Today she is sitting up in chair, reports having cough with occasional sputum production. Reports breathing better, no chest pain. Has not had BM, she does not want any additional stool softeners besides colace. Chest xray today showing possible developing pulmonary vascular congestion, with developing patchy edema/infiltrate right lower lung and consolidation left base. Continues on IV zosyn. Procalcitonin level today 0.48. Creatinine today 1.58. Has been started on baby aspirin. Urology recommending to hold off on anticoagulation due to risk for bleeding. She is postoperative day #5 right partial nephrectomy. Review of Systems Constitutional: Reports fatigue, has felt feverish Cardio vascular: denied any chest pain, palpitations Gastrointestinal: denied any nausea, vomiting, diarrhea. Passing gas, has not had a BM in 5 days. Dysuria improved. Pulmonary: Reports shortness of breath, reports cough Neurologic denied any new focal deficits All inpatient medications were reviewed and appropriate changes in these medications as dictated in the interval history and assessment and plan. PHYSICAL EXAMINATION: GENERAL: The patient is alert and oriented x3, fatigued, sitting up in chair, on Airvo oxygen support. Well developed, well nourished. HEENT: Pupils are round and equally reacting to light. EOMI. No scleral icterus. No conjunctival pallor. Normocephalic, atraumatic. No pharyngeal erythema. No thyromegaly. CARDIOVASCULAR: S1 and S2 present. No murmurs, rubs, or gallops. Continues in sinus rhythm PULMONARY: Chest is clear to auscultation, no wheezing or crackles. ABDOMEN: Soft, mild generalied tenderness, distended, normoactive bowel sounds. No palpable organomegaly. Post surgical abdomen, laproscopic incisions are intact, approximated. MUSCULOSKELETAL: No joint swelling or deformity. EXTREMITIES: No cyanosis, clubbing, or pedal edema. NEUROLOGICAL: Gross neurological examination did not reveal any focal deficits. SKIN: No rashes. Assessment and plan Assessment Acute hypoxic respiratory failure secondary to possible bilateral pneumonia New-onset atrial fibrillation with rapid ventricular rate, converted to normal sinus rhythm. Troponin elevation secondary to type 2 [place], managed medically Status post op day #6 robotic partial right nephrectomy, Acute renal injury Elevated liver enzymes Diabetes mellitus type 2 Hypertension currently blood pressure is 100 systolic Hyperlipidemia History coronary artery disease status post cardiac stents in the past GI Prophylaxis:Pepcid DVT Prophylaxis:Per primary patient is high risk for bleeding Full Code Plan Patient is being monitored in intensive care unit currently on Airvo 55/80 Continue empiric antibiotic coverage, bronchodilators Hold amlodipine/benazepril combination Continue daily stool softener Has been resumed on aspirin, cardiology recommending to resume antiplatelets when cleared by urology. Encourage incentive spirometery Repeat labs in AM The impression and plan of care has been dictated by Irma Alvarado Nurse Practitioner as directed. Dr. Ian MD I have performed a history and physical examination and medical decision making of this patient, discussed the same with the dictator, and agree with the dictators assessment and plan as written, documented as a scribe. Based on total visit time, I have performed more than 50% of this visit. Objective - Vital Signs Vital signs: Vital Signs Temp 98.9 F 11/30/21 08:00 Pulse 56 L 11/30/21 11:24 Resp 15 11/30/21 11:00 BP 113/60 11/30/21 11:00 Pulse Ox 95 11/30/21 11:53 FiO2 80 11/30/21 11:53 Intake & Output 11/29/21 11/30/21 11/30/21 18:59 06:59 18:59 Intake Total 1450 340 140 Output Total 400 800 110 Balance 1050 -460 30 Weight 75.7 kg 75.1 kg Intake: IV 340 340 20 0.9 240 240 20 Piperacillin-Tazobactam 3 100 100 .375 gm In Sodium Chloride 0.9% 100 ml @ 25 mls/hr IVPB Q8H [facility] Rx#: [id number] Oral 1110 0 120 Output: Urine 400 800 110 Other: Voiding Method External Catheter External Catheter # Voids 1 0 - Labs CBC & Chem 7: 11/30/21 03:38 11/30/21 03:38 Labs: Abnormal Lab Results - Last 24 Hours (Table) 11/29/21 11/29/21 11/30/21 Range/Units 16:29 20:30 03:38 WBC (3.8-10.6) k/uL RBC (3.80-5.40) m/uL Hgb (11.4-16.0) gm/dL Hct (34.0-46.0) % Neutrophils # (1.3-7.7) k/uL Lymphocytes # (1.0-4.8) k/uL BUN (7-17) mg/dL Creatinine (0.52-1.04) mg/dL POC Glucose (mg/dL) 164 H 164 H (70-110) mg/dL AST (14-36) U/L ALT (4-34) U/L Alkaline Phosphatase (38-126) U/L Total Protein (6.3-8.2) g/dL Albumin (3.5-5.0) g/dL Procalcitonin 0.48 H (0.02-0.09) ng/mL 11/30/21 11/30/21 11/30/21 Range/Units 03:38 03:38 11:27 WBC 13.4 H (3.8-10.6) k/uL RBC 3.78 L (3.80-5.40) m/uL Hgb 11.1 L (11.4-16.0) gm/dL Hct 33.4 L (34.0-46.0) % Neutrophils # 11.6 H (1.3-7.7) k/uL Lymphocytes # 0.6 L (1.0-4.8) k/uL BUN 34 H (7-17) mg/dL Creatinine 1.58 H (0.52-1.04) mg/dL POC Glucose (mg/dL) 164 H (70-110) mg/dL AST 134 H (14-36) U/L ALT 103 H (4-34) U/L Alkaline Phosphatase 193 H (38-126) U/L Total Protein 5.9 L (6.3-8.2) g/dL Albumin 3.1 L (3.5-5.0) g/dL Procalcitonin (0.02-0.09) ng/mL Assessment and Plan Time with Patient: Less than 30
--- NOTE | 2021-11-30 12:40 | CA ---
Transthoracic Echo Report Name: Jessica Perez Age: 76 Gender: F : 1945 Exam Date: 11/30/2021 08:33 Exam Location: [facility] Ht (in): 60 Wt (lb): 165 Ordering Physician: mAi Cohen Attending/Referring Phys: [id number], Noel [employer] Designer Danika Roberts RDCS Procedure CPT: Indications: AFib, shortness of breath Cardiac Hx: Technical Quality: Technically difficult study Contrast 1: Lumason Total Dose (mL): 5 Contrast 2: Total Dose (mL): MEASUREMENTS (Male / Female) Normal Values 2D ECHO LV Diastolic Diameter PLAX 4.4 cm 4.2 - 5.9 / 3.9 - 5.3 cm LV Systolic Diameter PLAX 3.4 cm IVS Diastolic Thickness 1.3 cm 0.6 - 1.0 / 0.6 - 0.9 cm LVPW Diastolic Thickness 1.7 cm 0.6 - 1.0 / 0.6 - 0.9 cm LV Relative Wall Thickness 0.7 LA Systolic Diameter LX 4.3 cm 3.0 - 4.0 / 2.7 - 3.8 cm LA Volume 56.8 cm??? 18 - 58 / 22 - 52 cm??? M-MODE Aortic Root Diameter MM 2.0 cm LA Systolic Diameter MM 4.3 cm LA Ao Ratio MM 2.1 MV E Point Septal Separation 0.5 cm AV Cusp Separation MM 1.0 cm DOPPLER AV Peak Velocity 291.7 cm/s AV Peak Gradient 34.0 mmHg AV Mean Velocity 212.2 cm/s AV Mean Gradient 20.9 mmHg AV Velocity Time Integral 54.8 cm LVOT Peak Velocity 93.1 cm/s LVOT Peak Gradient 3.5 mmHg MV Area PHT 3.8 cm??? Mitral E Point Velocity 86.5 cm/s Mitral A Point Velocity 58.6 cm/s Mitral E to A Ratio 1.5 MV Deceleration Time 197.6 ms TR Peak Velocity 271.3 cm/s TR Peak Gradient 29.4 mmHg Right Ventricular Systolic Press 33.5 mmHg FINDINGS Left Ventricle Moderately increased septal wall thickness. Severely increased posterior wall thickness. Left ventricular ejection fraction is estimated at 45 %. Right Ventricle Normal right ventricular size and function. Right Atrium Normal right atrial size. Left Atrium Mildly increased left atrial diameter. Mildly increased left atrial volume. Mitral Valve Mitral valve thickened. Mild mitral regurgitation. Aortic Valve Moderate aortic stenosis with a peak gradient of 36 mmHg and a mean gradient of 21 mmHg. Tricuspid Valve Structurally normal tricuspid valve. Pulmonic Valve Structurally normal pulmonic valve. Pericardium Pericardial effusion. Aorta Normal size aortic root and proximal ascending aorta. CONCLUSIONS Left ventricular ejection fraction 45% Moderate LVH Mild mitral regurgitation Moderate aortic stenosis No pericardial effusion Previewed by: Dr. Pascual Anderson DO (Electronically Signed) Final Date: 30 November 2021 12:13
--- NOTE | 2021-11-30 13:04 | P.PN ---
Subjective Progress Note Date: 11/30/21 As per the previous medical notes. We appreciate all the medical care of the patient is receiving in intensive care. The patient from a urologic standpoint is stable. His regards to anticoagulation doubly in the next 48 hours this can be instituted. Her urine output is good. Her hemoglobin is stable and her creatinine to 1.58. Objective - Vital Signs Vital signs: Vital Signs Temp 98 F 11/30/21 12:00 Pulse 59 L 11/30/21 12:00 Resp 13 11/30/21 12:00 BP 115/58 11/30/21 12:00 Pulse Ox 97 11/30/21 12:00 FiO2 80 11/30/21 12:00 Intake & Output 11/29/21 11/30/21 11/30/21 18:59 06:59 18:59 Intake Total 1450 340 240 Output Total 400 800 110 Balance 1050 -460 130 Weight 75.7 kg 75.1 kg Intake: IV 340 340 120 0.9 240 240 20 Piperacillin-Tazobactam 3 100 100 100 .375 gm In Sodium Chloride 0.9% 100 ml @ 25 mls/hr IVPB Q8H [facility] Rx#: [id number] Oral 1110 0 120 Output: Urine 400 800 110 Other: Voiding Method External Catheter External Catheter # Voids 1 0 1 - Labs CBC & Chem 7: 11/30/21 03:38 11/30/21 03:38 Labs: Abnormal Lab Results - Last 24 Hours (Table) 11/29/21 11/29/21 11/30/21 Range/Units 16:29 20:30 03:38 WBC (3.8-10.6) k/uL RBC (3.80-5.40) m/uL Hgb (11.4-16.0) gm/dL Hct (34.0-46.0) % Neutrophils # (1.3-7.7) k/uL Lymphocytes # (1.0-4.8) k/uL BUN (7-17) mg/dL Creatinine (0.52-1.04) mg/dL POC Glucose (mg/dL) 164 H 164 H (70-110) mg/dL AST (14-36) U/L ALT (4-34) U/L Alkaline Phosphatase (38-126) U/L Total Protein (6.3-8.2) g/dL Albumin (3.5-5.0) g/dL Procalcitonin 0.48 H (0.02-0.09) ng/mL 11/30/21 11/30/21 11/30/21 Range/Units 03:38 03:38 11:27 WBC 13.4 H (3.8-10.6) k/uL RBC 3.78 L (3.80-5.40) m/uL Hgb 11.1 L (11.4-16.0) gm/dL Hct 33.4 L (34.0-46.0) % Neutrophils # 11.6 H (1.3-7.7) k/uL Lymphocytes # 0.6 L (1.0-4.8) k/uL BUN 34 H (7-17) mg/dL Creatinine 1.58 H (0.52-1.04) mg/dL POC Glucose (mg/dL) 164 H (70-110) mg/dL AST 134 H (14-36) U/L ALT 103 H (4-34) U/L Alkaline Phosphatase 193 H (38-126) U/L Total Protein 5.9 L (6.3-8.2) g/dL Albumin 3.1 L (3.5-5.0) g/dL Procalcitonin (0.02-0.09) ng/mL
[2021-11-30 16:32] LABS: Glucose,Whole Blood 182 mg/dL (70-110)
[2021-11-30 20:20] LABS: Glucose,Whole Blood 162 mg/dL (70-110)
[2021-11-30] MEDS: ATORVASTATIN 80 MG TAB PO SCH (20:53)
[2021-12-01] MEDS: PIPERACILLIN-TAZOBACTAM 3.375 GM in SODIUM CHLORIDE 0.9% 100 ML IVPB SCH ×3 (04:29→20:58)
[2021-12-01] MEDS: HYDROcodone/APAP 5-325MG 1 EACH TAB PO PRN ×3 (04:29→20:59)
[2021-12-01] MEDS: IPRATROPIUM-ALBUTEROL 3 ML NEB INHALATION SCH ×4 (07:10→19:33)
[2021-12-01 07:14] LABS: Glucose,Whole Blood 75 mg/dL (70-110)
[2021-12-01] MEDS: INSULIN ASPART (NovoLOG) 100 UNIT/ML VIAL SQ SCH ×4 (07:15→21:00)
[2021-12-01] MEDS: ASPIRIN 81 MG PO SCH (08:01)
[2021-12-01] MEDS: FAMOTIDINE 20 MG TAB PO SCH (08:12)
[2021-12-01] MEDS: METOPROLOL TARTRATE 25 MG TAB PO SCH ×2 (08:12→20:59)
[2021-12-01] MEDS: DOCUSATE 100 MG CAP PO SCH (08:12)
--- NOTE | 2021-12-01 08:33 | P.PN ---
Subjective Progress Note Date: 12/01/21 This is a 76-year-old female patient of the transferred to the intensive care unit for increased shortness of breath. The patient was found to be in atrial fibrillation with rapid ventricular response and for that reason the patient got transferred to the ICU. The patient is currently postop day #4. The patient underwent a right partial nephrectomy. A CTA of the chest was done yesterday and the patient was found to have no evidence of any pulmonary embolism. Note that the patient was found to have a 3.5 cm right sided renal mass. Based on that, the patient was taken to the operating room for a nephrectomy. The patient is known to be having other comorbid conditions including hypertension, hyperlipidemia diabetes mellitus. The patient is also known to have CAD with previous MA. She has previous chronic catheterization and stenting.. This morning, the patient Got transferred to the intensive care unit the patient developed itchy fibrillation with rapid ventricular response. She is currently on the heart rate of 137, irregular with a blood pressure 113/75. She was placed on 100% nonrebreather facemask and her current pulse ox is 94%. The patient is also having some chest pain this morning. Morning chest pains. The patient is also having chest pain which is sternal, 6 out of 10 in severity. Cardiac enzymes are pending. EKG was done and it showed atrial fibrillation with a rapid ventricular response . I reviewed the EKG there is no significant ST segment changes. There is voltage criteria for LVH. There may be some inferior wall ST segment depression. The chest x-ray also showed some limited bibasilar pulmonary infiltrates along with some cardiomegaly. Lung volumes are essentially small. The patient is currently postoperative day #4. IV fluids are currently at KVO. The patient came in to the ICU and she was given amiodarone bolus initially at a dose of 150 mg of following that she was started on a maintenance of 1 mg/m. I also reviewed the CTA of the chest that was done on 11/27/2021. As mentioned, there is evidence of a pulmonary embolism. There is significant atelectatic changes in the lung bases bilaterally. No reported aspiration. She has an incentive spirometer at the bedside. In terms of her blood work, the patient's white cell count that is a 50 point the XII.5 and a platelet count of 204. Electrolytes from yesterday were all within normal limits with the B 20/20 creatinine 1.09. Sodium is 136. Cardiac enzymes are still pending. The patient is diabetic and she is on a combination of antihypertensive diabetic medication. She is on Dilaudid for pain control. She is also on IV Zosyn that was started 11/26/21 as an empiric antibiotic coverage.the patient had an echocardiogram on 05/05/2021 that showed segmental wall motion abnormalities involving the anterior wall, inferior wall of the septal wall. Ejection fraction was around 45-50%. The LV size was normal. No significant valvular abnormalities were noted. No significant pulmonary hypertension. Her previous cardiac catheterization was done in April 2021. She has undergone stenting to the LAD and subsequently to the circumflex. As such, the patient has stool coronary stents and the patient was receiving dual antiplatelet treatment on outpatient basis. On 11/29/2021, the patient continues to have shortness of breath and she is still struggling with her breathing and she is quite tachypneic with respiratory rate ranging between 30 and 40 breasts a minute. She remains on a BiPAP at a pressure of 12 was 6 cm of water FiO2 of 80%. She was transitioned from 100% nonrebreather with a high flow and later on her BiPAP. Chest x-ray showing infiltration of the lung base bilaterally. The patient was given a total of 2 doses of Lasix yesterday and her creatinine is currently up to 1.5. She did convert into normal sinus rhythm. She is normotensive for now. Echocardiogram from today is still pending. Meanwhile, her fluid balance is -560 mL over the past 24 hours. In terms of her labs, the whites of +0.3 with a hemoglobin 11.5 and a platelet count of 211. Sodium is 136, potassium of 4.2, BNP is a 30 with creatinine of 1.5. LFTs are still slightly abnormal. Abdomen is distended. Surgical 1 sets of dry clean and uninfected troponin peaked at 1.4. IV heparin was contemplated. Nevertheless, I had a discussion with urology who opted not t o put the patient to coagulation due to concerns of bleeding within the kidney surgical sites. The patient remains on IV Zosyn for now as an empiric antibiotic coverage. She is also on metoprolol 25 mg by mouth twice a day. 2021, patient is being seen postop day #6 following her partial nephrectomy on the right. She developed an acute non-ST segment elevation myocardial infarction and bilateral pneumonia and this controlled the patient to an acute hypoxic respiratory failure. The patient was on a BiPAP and currently she is on high flow oxygen at 60 L in a fight over 85%. I performed a CAT scan of the chest and abdomen yesterday and the CAT scan of the chest showed extensive lower lobe consolidation bilaterally consistent with pneumonia. CAT scan of the abdomen showed postsurgical changes along the posterior aspect of the right kidney. There was extensive adjacent edema with increased density up to 7 cm in size by 3.1 cm in size. Some underlying surgical material is present. There is extensive edema and stranding fluid extending down to the right retroperitoneum in the right perinephric space. Suspect some hemorrhagic material along the surgical bed. In summary, the findings were consistent with perinephric edema and some area of suspected hemorrhagic stranding. There was another area of 2.2 cm oval often she'll nodule lateral to the right perinephric space and this was also suspected to be a focal area of hematoma. Based on all this, no antiplatelet agents or IV heparin was provided. The patient remains hemodynamically stable. Echocardiogram was ordered. The patient was kept on IV Zosyn. 4 calcitonin level was mildly elevated. White cell count of 15.4 with a hemoglobin of 11.1. Creatinine is also stable at 1.58 with a BUN of 34. LFTs are abnormal with an AST of 13 the bilirubin is also normal. Bilirubin is normal. Surgical notes is also normal. No abdominal distention. The patient is passing factors at this point in time. Bilirubin is normal bilirubin is normal, AST is 143, ALt of 103 alkaline phosphatase of 193. The patient is passing flatus. The patient has clear surgical wound site. 12/01 2021, the patient remains on high flow oxygen, 50 L, FiO2 of 60%. Oxygenation remains limited to the pulse ox of 93-94%. No chest x-rays available from today. She is using the incentive spirometer and she is falling approximately 750. She is doing deep breathing. She continues to have crackles in the lung bases bilaterally. No chest pain. Cardiac rhythm is sinus. Surgical incisions are clean and intact. There is no evidence of any bleed. Today's blood work is still pending. Of interest will be a follow-up creatinine level. Multivessel troponin peaked at 41. Cardiology is on the case. Anticoagulation was avoided. I think we got the okay from urology for initiation of the platelet agents and nontender the patient has a previous coronary stents, would suggest restarting the patient on aspirin and Plavix. The patient remains on IV Zosyn. Tolerating diet. No nausea. No vomiting. She is able to set up on a chair. Producing adequate amount of urine output. IV fluids are KVO. Objective - Vital Signs Vital signs: Vital Signs Temp 98.2 F 12/01/21 04:00 Pulse 57 L 12/01/21 07:25 Resp 19 12/01/21 07:00 BP 112/53 12/01/21 07:00 Pulse Ox 96 12/01/21 07:14 FiO2 60 12/01/21 07:14 Intake & Output 11/30/21 12/01/21 12/01/21 18:59 06:59 18:59 Intake Total 300 360 Output Total 510 650 Balance -210 -290 Weight 73.5 kg Intake: IV 180 360 0.9 80 260 Piperacillin-Tazobactam 3 100 100 .375 gm In Sodium Chloride 0.9% 100 ml @ 25 mls/hr IVPB Q8H [facility] Rx#: [id number] Oral 120 Output: Urine 510 650 Other: Voiding Method Bedside Commode Bedside Commode # Voids 1 0 - Exam General appearance the patient is in mild to moderate degree of respiratory distress currently On airvo 50 liters 60 fio2 Head exam was generally normal. There was no scleral icterus or corneal arcus. Mucous membranes were moist. Neck was supple and without jugular venous distension, thyromegaly, or carotid bruits. Carotids were easily palpable bilaterally. There was no adenopathy. Lungs sounds are diminished in the patient's w has crackles within the lower lung goodrich bilaterally Heart sounds are irregular, consistent with the fibrillation with rapid ventricular response, no significant murmurs could be appreciated. Abdomen is soft. Bowel sounds are sluggish. Surgical wounds are dry and the patient has multiple surgical sides related to recent nephrectomy. Minimal direct tenderness. No rebound tenderness. No guarding. Examination of the extremities revealed easily palpable radial, femoral and pedal pulses. There was no cyanosis, clubbing or edema. Examination of the skin revealed no evidence of significant rashes, suspicious appearing nevi or other concerning lesions. Neurologically, the patient is awake and alert and the patient does not have any focal neurological deficit. Cranial nerves are essentially intact. - Labs CBC & Chem 7: 11/30/21 03:38 11/30/21 03:38 Labs: Abnormal Lab Results - Last 24 Hours (Table) 11/30/21 11/30/21 11/30/21 Range/Units 03:38 11:27 16:30 POC Glucose (mg/dL) 164 H 182 H (70-110) mg/dL Procalcitonin 0.48 H (0.02-0.09) ng/mL 11/30/21 Range/Units 20:18 POC Glucose (mg/dL) 162 H (70-110) mg/dL Procalcitonin (0.02-0.09) ng/mL Microbiology - Last 24 Hours (Table) 11/29/21 13:46 Blood Culture - Preliminary Blood No Growth after 24 hours 11/29/21 13:18 Blood Culture - Preliminary Blood No Growth after 24 hours Assessment and Plan Plan: New onset atrial fibrillation with rapid ventricular response, converted into normal sinus rhythm Acute non-ST segment elevation myocardial infarction. The patient had ST segment depression on yesterday's EKG. No IV heparin was utilized due to urology's concern of bleeding postop. The patient's family chest pain and a troponin peak at 40. The patient remains free of any chest pain. Cardiology is on the case. We will going to restart aspirin and Plavix. Chest pain with an underlying history of coronary artery disease, rule out underlying angina versus chest pain related to the tachycardia induced by itchy fibrillation. EKG showing some ST segment depressions along the inferior leads. Currently back into normal sinus rhythm and the patient is currently free of any chest pain Acute hypoxic respiratory failure currently on high flow oxygen with an FiO2 of 60% and the floor of 50 L. We'll obtain a follow-up chest x-ray today. Continue using incentive spirometer. Continue using diabetes also. She does have an extensive consolidation of the lung bases bilaterally, could be related to atelectasis/pneumonia. History of nephrectomy, right sided for a renal mass and the patient is p ostoperative day #7. This was done robotically and the patient has the drain taken out Perinephric edema and areas of suspected hemorrhage in the perinephric area. Hemoglobin is stable and the patient is currently on no anticoagulants and nontender guidance will be used based on urology recommendation. history of coronary artery disease with previous stenting of the circumflex and lad Moderate severe aortic stenosis diabetes mellitus hypertension hyperlipidemia macular degeneration CAMILO and Cr 1.5 plan Keep the patient on airvo, wean down FiO2 and keep the floor at 50 L No diuretics IV fluids at KVO metoprolol 25 mg twice a day No anticoagulants for now The patient on Lovenox 40 mg for DVT prophylaxis and restart the patient on a combination of aspirin and Plavix as the patient does have underlying coronary stent Continue IV Zosyn and repeat a pro-calcitonin level from yesterday was at 0.48 Echocardiogram was noted and the patient has a ejection fraction of 45%, normal RV, moderate increase of the septal wall thickening, moderate degree of aortic stenosis with a peak greater than 36 and a mean gradient of 21. No evidence of any pericardial effusion. Increase lactulose for further respirator Patient is passing flatness and there is no indication for underlying ileus Continue with bedrest for now sliding scale insulin coverage We'll continue to follow
[2021-12-01] MEDS ORDERED: ENOXAPARIN 40 MG/0.4 ML SYRINGE SQ SCH (09:00)
--- NOTE | 2021-12-01 09:29 | P.PN ---
Subjective Progress Note Date: 12/01/21 6 days sp partial nephrectomy. Post op pneumonia and afib. Slowly recouperationg. ok to anticoagulate from our standpoint at present. vss. Objective - Vital Signs Vital signs: Vital Signs Temp 98.2 F 12/01/21 04:00 Pulse 57 L 12/01/21 07:25 Resp 19 12/01/21 07:00 BP 112/53 12/01/21 07:00 Pulse Ox 93 L 12/01/21 08:41 FiO2 50 12/01/21 08:41 Intake & Output 11/30/21 12/01/21 12/01/21 18:59 06:59 18:59 Intake Total 300 360 Output Total 510 650 Balance -210 -290 Weight 73.5 kg Intake: IV 180 360 0.9 80 260 Piperacillin-Tazobactam 3 100 100 .375 gm In Sodium Chloride 0.9% 100 ml @ 25 mls/hr IVPB Q8H [facility] Rx#: [id number] Oral 120 Output: Urine 510 650 Other: Voiding Method Bedside Commode Bedside Commode # Voids 1 0 - Labs CBC & Chem 7: 11/30/21 03:38 11/30/21 03:38 Labs: Abnormal Lab Results - Last 24 Hours (Table) 11/30/21 11/30/21 11/30/21 Range/Units 03:38 11:27 16:30 POC Glucose (mg/dL) 164 H 182 H (70-110) mg/dL Procalcitonin 0.48 H (0.02-0.09) ng/mL 11/30/21 Range/Units 20:18 POC Glucose (mg/dL) 162 H (70-110) mg/dL Procalcitonin (0.02-0.09) ng/mL Microbiology - Last 24 Hours (Table) 11/29/21 13:46 Blood Culture - Preliminary Blood No Growth after 24 hours 11/29/21 13:18 Blood Culture - Preliminary Blood No Growth after 24 hours
[2021-12-01 11:03] LABS: Glucose,Whole Blood 107 mg/dL (70-110)
[2021-12-01 11:33] LABS: Calcium 8.1 mg/dL (8.4-10.2); Potassium 4.1 mmol/L (3.5-5.1)
--- NOTE | 2021-12-01 11:49 | P.PN ---
Subjective Progress Note Date: 12/01/21 The patient is a 76-year-old female who is currently admitted to the hospital after undergoing a partial nephrectomy on 11/24/2021. Postoperative complications included A. fib with RVR and pneumonia. On 11/28/2021 patient was started on amiodarone drip, where she spontaneously converted back to sinus mec hanism. Overall the patient was in atrial fibrillation for less than 24 hours. On 11/29/2021, the patient had a rapid increase in liver enzymes as well as a peak troponin of 41. Computed tomography scan of the chest and abdomen showed bibasilar airspace disease as well as perinephric edema along the posterior margin, suggesting postoperative hemorrhage/hematoma. Echocardiogram revealed distal anteroseptal hypokinesis. The patient was interviewed and examined sitting up in the recliner chair. She states she is feeling much better overall. She is in the process of being weaned down off her oxygen. She denies any chest pain or pressure. No heart racing or fluttering. GENERAL: Well-appearing, well-nourished and in no acute distress. NECK: Supple without JVD or thyromegaly. LUNGS: Breath sounds diminished to auscultation bilaterally. Respiration equal and unlabored. No wheezes, rales or rhonchi. HEART: Regular rate and rhythm. Systolic murmur. No rubs or gallops. S1 and S2 heard. EXTREMITIES: Normal range of motion, no edema. No clubbing or cyanosis. Peripheral pulses intact and strong. VITALS: Blood pressure 119/61, pulse 72, respiratory rate 22, SpO2 92% on 50% high flow TELEMETRY: Sinus rhythm. Mild bradycardia overnight LABS: WBC 13.4, hemoglobin 11.1 and hematocrit 33.4, platelet 209, sodium 137, potassium 4.0, BUN 34, creatinine 1.58, AST 134, ALT 103, ALP 193 IMPRESSION: Atrial fibrillation with RVR, spontaneous conversion back to sinus rhythm within 24 hours Type II myocardial infarction, medical management with recent surgery Status post nephrectomy, postop day 6 Elevated liver enzymes History of coronary artery disease History diabetes mellitus History of hypertension PLAN: Recommend clopidogrel as she is cleared by surgical team Continue medical management as she remains asymptomatic Further recommendations to be based on clinical course I am dictating on behalf of Dr Erwin Olivia's history/physical and assessment/plan. Objective - Vital Signs Vital signs: Vital Signs Temp 98.2 F 12/01/21 04:00 Pulse 77 12/01/21 11:10 Resp 22 12/01/21 11:00 BP 119/61 12/01/21 11:00 Pulse Ox 92 L 12/01/21 11:00 FiO2 50 12/01/21 11:00 Intake & Output 11/30/21 12/01/21 12/01/21 18:59 06:59 18:59 Intake Total 300 360 80 Output Total 510 650 225 Balance -210 -290 -145 Weight 73.5 kg Intake: IV 180 360 80 0.9 80 260 80 Piperacillin-Tazobactam 3 100 100 .375 gm In Sodium Chloride 0.9% 100 ml @ 25 mls/hr IVPB Q8H [facility] Rx#: [id number] Oral 120 Output: Urine 510 650 225 Other: Voiding Method Bedside Commode Bedside Commode # Voids 1 0 - Labs CBC & Chem 7: 11/30/21 03:38 12/01/21 10:46 Labs: Abnormal Lab Results - Last 24 Hours (Table) 11/30/21 11/30/21 12/01/21 Range/Units 16:30 20:18 07:29 Sodium (137-145) mmol/L BUN (7-17) mg/dL Creatinine (0.52-1.04) mg/dL Glucose (74-99) mg/dL POC Glucose (mg/dL) 182 H 162 H (70-110) mg/dL Calcium (8.4-10.2) mg/dL Procalcitonin 0.41 H (0.02-0.09) ng/mL 12/01/21 Range/Units 10:46 Sodium 135 L (137-145) mmol/L BUN 35 H (7-17) mg/dL Creatinine 1.33 H (0.52-1.04) mg/dL Glucose 110 H (74-99) mg/dL POC Glucose (mg/dL) (70-110) mg/dL Calcium 8.1 L (8.4-10.2) mg/dL Procalcitonin (0.02-0.09) ng/mL Microbiology - Last 24 Hours (Table) 11/29/21 13:46 Blood Culture - Preliminary Blood No Growth after 24 hours 11/29/21 13:18 Blood Culture - Preliminary Blood No Growth after 24 hours
[2021-12-01] MEDS: CLOPIDOGREL 75 MG TAB PO SCH (12:45)
[2021-12-01] MEDS: ENOXAPARIN 30 MG/0.3 ML SYRINGE SQ SCH (12:49)
[2021-12-01] MEDS: polyethylene glycoL 3350 17 GM POWD.PACK PO SCH (16:10)
--- NOTE | 2021-12-01 16:29 | P.PN ---
Subjective Progress Note Date: 12/01/21 This is a 76 year old female, post operative day #4 right partial nephrectomy for known history of right renal mass. Patients hospital stay complicated by shortness of breath and hypoxia, with chest pain. A team was called this morning and patient has been transferred to intensive care unit for close monitoring. Found to be in atrial fibrillation with rapid ventricular rate and received amiodarone bolus and continues on amiodarone infusion, pending cardiology consultation. Patient also received a dose of IV lasix 40 mg today. D-Dimer elevated at 0.96, chest CTA is negative for pulmonary embolism. Chest xray showing patchy bibasilar infiltrates. Continues on bronchodilators, empiric antibiotics with IV zosyn. Echocardiogram completed in April of this year shows an EF of 45-50% with LV wall hypokinesis, mild MR, mild TR. Labs reviewed today showing a white count of 13.2, sodium 136, beyond 20, creatinine 1.25. He does have troponin elevation at 1.400. Liver enzymes are also elevated, proBNP 662. Covid negative. He remains afebrile, heart rate 140 8H fibrillation, blood pressure 101/73, patient is on a non rebreather at 15 L. Patient is on a combination of amlodipine/benazepril daily which we will hold at this time secondary to low normal BPs. 11/29/2021 Patient is evaluated today in intensive care unit. Converted to normal sinus rhythm yesterday afternoon and amiodarone has been discontinued. Urology recommending for patient to hold anticoagulation currently and eliquis has been stopped at this time. Troponins have been trended and increased up to 41.000. Cardiology following patient. Echocardiogram has been ordered. Patient had chest xray this morning showing basilar pneumonia with findings similar to previous exam with associated effusion. Follow up abdomen chest CT showing possible perinephric hemorrhage/hematoma. with possible additional areas of strandy hemorrhage in the right pericaval region. Also, possible small focal hematoma vs. metastatic deposit in lateral right perinephric space. There is possible infectious or aspiration pneumonitis with trace right pleural effusion. No pericardial effusion. There is coronary artery disease evident. Patient continues on BiPAP with FiO2 of 88%, afebrile, maintaining normal sinus rhythm heart rate 82, blood pressure 106/59. Continues on IV zosyn. Labs reviewed showing BUN 30, creatinine 1.53, AST 204, ALT 122, alk phos 152 which have increased. 11/30/2021 Patient continues to be monitored closely in intensive care unit. She has been transitioned from BiPAP onto high flow airvo oxygen support with 55/80. Had low grade fever 99.8 around midnight. Today she is sitting up in chair, reports having cough with occasional sputum production. Reports breathing better, no chest pain. Has not had BM, she does not want any additional stool softeners besides colace. Chest xray today showing possible developing pulmonary vascular congestion, with developing patchy edema/infiltrate right lower lung and consolidation left base. Continues on IV zosyn. Procalcitonin level today 0.48. Creatinine today 1.58. Has been started on baby aspirin. Urology recommending to hold off on anticoagulation due to risk for bleeding. She is postoperative day #6 right partial nephrectomy. 12/01/2021 Patient is evaluated in the intensive care unit. Patient is postoperative day #7 right partial nephrectomy. She has been resumed on plavix and also started on lovenox today. Continues on airvo oxygen support 50/50 with oxygen saturations of 93%. Afebrile overnight. Blood cultures are currently negative. Continues on IV antibiotics with IV zosyn empirically. She has not had a BM postoperatively does have increased bowel sounds today. She is agreeable to miralax in addition to colace. Labs today showing sodium level of 135, potassium 4.1, BUN 35, creatinine 1.33, glucose in the 100s. Procalcitonin level today 0.41. proBNP was checked at 2790. Echocardiogram showing EF 45% with moderate LVH, mild MR, Moderate aortic stenosis. Review of Systems Constitutional: Reports fatigue, denies fever Cardio vascular: denied any chest pain, palpitations Gastrointestinal: denied any nausea, vomiting, diarrhea. Passing gas, has not had a BM in 5 days. Dysuria improved. Pulmonary: Reports shortness of breath, reports cough Neurologic denied any new focal deficits All inpatient medications were reviewed and appropriate changes in these medications as dictated in the interval history and assessment and plan. PHYSICAL EXAMINATION: GENERAL: The patient is alert and oriented x3, fatigued, sitting up in chair, on Airvo oxygen support. Well developed, well nourished. HEENT: Pupils are round and equally reacting to light. EOMI. No scleral icterus. No conjunctival pallor. Normocephalic, atraumatic. No pharyngeal erythema. No thyromegaly. CARDIOVASCULAR: S1 and S2 present. No murmurs, rubs, or gallops. Continues in sinus rhythm PULMONARY: Bilateral posterior basilar crackles, no wheezing noted. ABDOMEN: Soft, mild generalied tenderness, distended, normoactive bowel sounds. No palpable organomegaly. Post surgical abdomen, laproscopic incisions are intact, approximated. MUSCULOSKELETAL: No joint swelling or deformity. EXTREMITIES: No cyanosis, clubbing, or pedal edema. NEUROLOGICAL: Gross neurological examination did not reveal any focal deficits. SKIN: No rashes. Assessment and plan Assessment Acute hypoxic respiratory failure secondary to possible bilateral pneumonia currently on airvo oxygen support with FiO2 of 50%. New-onset atrial fibrillation with rapid ventricular rate, converted to normal sinus rhythm. Troponin elevation secondary to type 2 [place], managed medically Status post op day #7 robotic partial right nephrectomy Acute renal injury improving Elevated liver enzymes Diabetes mellitus type 2 Hypertension currently blood pressure is 100 systolic Hyperlipidemia History coronary artery disease status post cardiac stents in the past GI Prophylaxis:Pepcid DVT Prophylaxis: Lovenox Full Code Plan Patient is being monitored in intensive care unit currently on Airvo 50/50 Continue empiric antibiotic coverage, bronchodilators Hold amlodipine/benazepril combination Continue daily stool softener, miralax added today Currently on aspirin/plavix combination No evidence for bleeding Encourage incentive spirometery Repeat labs in AM The impression and plan of care has been dictated by Irma Alvarado Nurse Practitioner as directed. Dr. Ian MD I have performed a history and physical examination and medical decision making of this patient, discussed the same with the dictator, and agree with the dictators assessment and plan as written, documented as a scribe. Based on total visit time, I have performed more than 50% of this visit. Objective - Vital Signs Vital signs: Vital Signs Temp 98.7 F 12/01/21 16:00 Pulse 77 12/01/21 16:00 Resp 15 12/01/21 16:00 BP 134/79 12/01/21 16:00 Pulse Ox 93 L 12/01/21 16:00 FiO2 50 12/01/21 15:01 Intake & Output 11/30/21 12/01/21 12/01/21 18:59 06:59 18:59 Intake Total 300 360 600 Output Total 510 650 775 Balance -210 -290 -175 Weight 73.5 kg Intake: IV 180 360 120 0.9 80 260 120 Piperacillin-Tazobactam 3 100 100 .375 gm In Sodium Chloride 0.9% 100 ml @ 25 mls/hr IVPB Q8H [facility] Rx#: [id number] Oral 120 480 Output: Urine 510 650 775 Other: Voiding Method Bedside Commode Bedside Commode Bedside Commode # Voids 1 0 1 - Labs CBC & Chem 7: 11/30/21 03:38 12/01/21 10:46 Labs: Abnormal Lab Results - Last 24 Hours (Table) 11/30/21 11/30/21 12/01/21 Range/Units 16:30 20:18 07:29 Sodium (137-145) mmol/L BUN (7-17) mg/dL Creatinine (0.52-1.04) mg/dL Glucose (74-99) mg/dL POC Glucose (mg/dL) 182 H 162 H (70-110) mg/dL Calcium (8.4-10.2) mg/dL Procalcitonin 0.41 H (0.02-0.09) ng/mL 12/01/21 Range/Units 10:46 Sodium 135 L (137-145) mmol/L BUN 35 H (7-17) mg/dL Creatinine 1.33 H (0.52-1.04) mg/dL Glucose 110 H (74-99) mg/dL POC Glucose (mg/dL) (70-110) mg/dL Calcium 8.1 L (8.4-10.2) mg/dL Procalcitonin (0.02-0.09) ng/mL Microbiology - Last 24 Hours (Table) 11/29/21 13:18 Blood Culture - Preliminary Blood No Growth after 48 hours 11/29/21 13:46 Blood Culture - Preliminary Blood No Growth after 24 hours Assessment and Plan Time with Patient: Less than 30
[2021-12-01 16:47] LABS: Glucose,Whole Blood 126 mg/dL (70-110)
[2021-12-01 19:57] LABS: Glucose,Whole Blood 145 mg/dL (70-110)
[2021-12-01] MEDS: ATORVASTATIN 80 MG TAB PO SCH (20:59)
[2021-12-02] MEDS ORDERED: HYDROcodone/APAP 5-325MG 1 EACH TAB ONE (01:00)
[2021-12-02] MEDS: PIPERACILLIN-TAZOBACTAM 3.375 GM in SODIUM CHLORIDE 0.9% 100 ML IVPB SCH ×3 (04:10→21:17)
[2021-12-02] MEDS: HYDROcodone/APAP 5-325MG 1 EACH TAB PO PRN ×3 (06:27→23:49)
[2021-12-02 06:46] LABS: Glucose,Whole Blood 120 mg/dL (70-110)
[2021-12-02] MEDS: polyethylene glycoL 3350 17 GM POWD.PACK PO SCH (06:47)
[2021-12-02 07:03] LABS: HCT 30.8 % (34.0-46.0); HGB 10.2 gm/dL (11.4-16.0); Hypochromasia Slight; MCH 29.7 pg (25.0-35.0); MCHC 33.1 g/dL (31.0-37.0); MCV 89.7 fL (80.0-100.0); Platelet Count 232 k/uL (150-450); RBC 3.43 m/uL (3.80-5.40); RDW 14.7 % (11.5-15.5); WBC 9.8 k/uL (3.8-10.6)
[2021-12-02 07:15] LABS: Calcium 8.3 mg/dL (8.4-10.2); Potassium 4.1 mmol/L (3.5-5.1)
[2021-12-02] MEDS: INSULIN ASPART (NovoLOG) 100 UNIT/ML VIAL SQ SCH ×4 (07:30→21:16)
--- NOTE | 2021-12-02 07:43 | XR ---
EXAMINATION TYPE: XR chest 1V portable DATE OF EXAM: 12/02/2021 COMPARISON: 11/30/2021 INDICATION: CHF TECHNIQUE: Single frontal view of the chest is obtained. FINDINGS: The heart size is normal. The pulmonary vasculature is normal. Left lower lobe air bronchograms are present. Correlate for pneumonia. Mild infiltrates at the right lung base. IMPRESSION: 1. Left lower lobe consolidation with air bronchograms. Correlate for pneumonia. 2. Mild infiltrates at the right base. Consider pneumonia as well as atelectasis or atypical pulmonar y edema.
--- NOTE | 2021-12-02 07:49 | P.PN ---
Subjective Progress Note Date: 12/02/21 The patient is status post right partial nephrectomy robotically 8 days ago. From urologic standpoint she is doing well. Her abdomen was soft and she is urinating without problems. He is in the intensive care unit for pulmonary and cardiac reasons. We will continue to follow. The pathology identified a renal cell carcinoma with clear margins. Objective - Vital Signs Vital signs: Vital Signs Temp 97.6 F 12/02/21 04:00 Pulse 60 12/02/21 04:00 Resp 22 12/02/21 04:00 BP 110/62 12/02/21 04:00 Pulse Ox 97 12/02/21 04:00 FiO2 50 12/02/21 04:00 Intake & Output 12/01/21 12/02/21 12/02/21 18:59 06:59 18:59 Intake Total 880 320 Output Total 775 1100 0 Balance 105 -780 0 Weight 73 kg Intake: IV 160 320 0.9 160 120 Piperacillin-Tazobactam 3 200 .375 gm In Sodium Chloride 0.9% 100 ml @ 25 mls/hr IVPB Q8H [facility] Rx#: [id number] Oral 720 Output: Urine 775 1100 0 Other: Voiding Method Bedside Commode Bedside Commode # Voids 0 2 0 - Labs CBC & Chem 7: 12/02/21 06:44 12/02/21 06:44 Labs: Abnormal Lab Results - Last 24 Hours (Table) 12/01/21 12/01/21 12/01/21 Range/Units 07:29 10:46 16:34 RBC (3.80-5.40) m/uL Hgb (11.4-16.0) gm/dL Hct (34.0-46.0) % Sodium 135 L (137-145) mmol/L BUN 35 H (7-17) mg/dL Creatinine 1.33 H (0.52-1.04) mg/dL Glucose 110 H (74-99) mg/dL POC Glucose (mg/dL) 126 H (70-110) mg/dL Calcium 8.1 L (8.4-10.2) mg/dL Procalcitonin 0.41 H (0.02-0.09) ng/mL 12/01/21 12/02/21 12/02/21 Range/Units 19:55 06:44 06:44 RBC 3.43 L (3.80-5.40) m/uL Hgb 10.2 L (11.4-16.0) gm/dL Hct 30.8 L (34.0-46.0) % Sodium 136 L (137-145) mmol/L BUN 34 H (7-17) mg/dL Creatinine 1.26 H (0.52-1.04) mg/dL Glucose 118 H (74-99) mg/dL POC Glucose (mg/dL) 145 H (70-110) mg/dL Calcium 8.3 L (8.4-10.2) mg/dL Procalcitonin (0.02-0.09) ng/mL 12/02/21 Range/Units 06:44 RBC (3.80-5.40) m/uL Hgb (11.4-16.0) gm/dL Hct (34.0-46.0) % Sodium (137-145) mmol/L BUN (7-17) mg/dL Creatinine (0.52-1.04) mg/dL Glucose (74-99) mg/dL POC Glucose (mg/dL) 120 H (70-110) mg/dL Calcium (8.4-10.2) mg/dL Procalcitonin (0.02-0.09) ng/mL Microbiology - Last 24 Hours (Table) 11/29/21 13:46 Blood Culture - Preliminary Blood No Growth after 48 hours 11/29/21 13:18 Blood Culture - Preliminary Blood No Growth after 48 hours
[2021-12-02] MEDS: METOPROLOL TARTRATE 25 MG TAB PO SCH ×2 (08:21→21:17)
[2021-12-02] MEDS: ASPIRIN 81 MG PO SCH (08:21)
[2021-12-02] MEDS: CLOPIDOGREL 75 MG TAB PO SCH (08:21)
[2021-12-02] MEDS: DOCUSATE 100 MG CAP PO SCH (08:21)
[2021-12-02] MEDS: FAMOTIDINE 20 MG TAB PO SCH (08:21)
[2021-12-02] MEDS: ENOXAPARIN 30 MG/0.3 ML SYRINGE SQ SCH (08:22)
[2021-12-02] MEDS: IPRATROPIUM-ALBUTEROL 3 ML NEB INHALATION SCH ×4 (08:27→21:28)
--- NOTE | 2021-12-02 09:21 | P.PN ---
Subjective Progress Note Date: 12/02/21 This is a 76-year-old female patient of the transferred to the intensive care unit for increased shortness of breath. The patient was found to be in atrial fibrillation with rapid ventricular response and for that reason the patient got transferred to the ICU. The patient is currently postop day #4. The patient underwent a right partial nephrectomy. A CTA of the chest was done yesterday and the patient was found to have no evidence of any pulmonary embolism. Note that the patient was found to have a 3.5 cm right sided renal mass. Based on that, the patient was taken to the operating room for a nephrectomy. The patient is known to be having other comorbid conditions including hypertension, hyperlipidemia diabetes mellitus. The patient is also known to have CAD with previous MO. She has previous chronic catheterization and stenting.. This morning, the patient Got transferred to the intensive care unit the patient developed itchy fibrillation with rapid ventricular response. She is currently on the heart rate of 137, irregular with a blood pressure 113/75. She was placed on 100% nonrebreather facemask and her current pulse ox is 94%. The patient is also having some chest pain this morning. Morning chest pains. The patient is also having chest pain which is sternal, 6 out of 10 in severity. Cardiac enzymes are pending. EKG was done and it showed atrial fibrillation with a rapid ventricular response . I reviewed the EKG there is no significant ST segment changes. There is voltage criteria for LVH. There may be some inferior wall ST segment depression. The chest x-ray also showed some limited bibasilar pulmonary infiltrates along with some cardiomegaly. Lung volumes are essentially small. The patient is currently postoperative day #4. IV fluids are currently at KVO. The patient came in to the ICU and she was given amiodarone bolus initially at a dose of 150 mg of following that she was started on a maintenance of 1 mg/m. I also reviewed the CTA of the chest that was done on 11/27/2021. As mentioned, there is evidence of a pulmonary embolism. There is significant atelectatic changes in the lung bases bilaterally. No reported aspiration. She has an incentive spirometer at the bedside. In terms of her blood work, the patient's white cell count that is a 50 point the XII.5 and a platelet count of 204. Electrolytes from yesterday were all within normal limits with the B 20/20 creatinine 1.09. Sodium is 136. Cardiac enzymes are still pending. The patient is diabetic and she is on a combination of antihypertensive diabetic medication. She is on Dilaudid for pain control. She is also on IV Zosyn that was started 11/26/21 as an empiric antibiotic coverage.the patient had an echocardiogram on 05/05/2021 that showed segmental wall motion abnormalities involving the anterior wall, inferior wall of the septal wall. Ejection fraction was around 45-50%. The LV size was normal. No significant valvular abnormalities were noted. No significant pulmonary hypertension. Her previous cardiac catheterization was done in April 2021. She has undergone stenting to the LAD and subsequently to the circumflex. As such, the patient has stool coronary stents and the patient was receiving dual antiplatelet treatment on outpatient basis. On 11/29/2021, the patient continues to have shortness of breath and she is still struggling with her breathing and she is quite tachypneic with respiratory rate ranging between 30 and 40 breasts a minute. She remains on a BiPAP at a pressure of 12 was 6 cm of water FiO2 of 80%. She was transitioned from 100% nonrebreather with a high flow and later on her BiPAP. Chest x-ray showing infiltration of the lung base bilaterally. The patient was given a total of 2 doses of Lasix yesterday and her creatinine is currently up to 1.5. She did convert into normal sinus rhythm. She is normotensive for now. Echocardiogram from today is still pending. Meanwhile, her fluid balance is -560 mL over the past 24 hours. In terms of her labs, the whites of +0.3 with a hemoglobin 11.5 and a platelet count of 211. Sodium is 136, potassium of 4.2, BNP is a 30 with creatinine of 1.5. LFTs are still slightly abnormal. Abdomen is distended. Surgical 1 sets of dry clean and uninfected troponin peaked at 1.4. IV heparin was contemplated. Nevertheless, I had a discussion with urology who opted not t o put the patient to coagulation due to concerns of bleeding within the kidney surgical sites. The patient remains on IV Zosyn for now as an empiric antibiotic coverage. She is also on metoprolol 25 mg by mouth twice a day. 2021, patient is being seen postop day #6 following her partial nephrectomy on the right. She developed an acute non-ST segment elevation myocardial infarction and bilateral pneumonia and this controlled the patient to an acute hypoxic respiratory failure. The patient was on a BiPAP and currently she is on high flow oxygen at 60 L in a fight over 85%. I performed a CAT scan of the chest and abdomen yesterday and the CAT scan of the chest showed extensive lower lobe consolidation bilaterally consistent with pneumonia. CAT scan of the abdomen showed postsurgical changes along the posterior aspect of the right kidney. There was extensive adjacent edema with increased density up to 7 cm in size by 3.1 cm in size. Some underlying surgical material is present. There is extensive edema and stranding fluid extending down to the right retroperitoneum in the right perinephric space. Suspect some hemorrhagic material along the surgical bed. In summary, the findings were consistent with perinephric edema and some area of suspected hemorrhagic stranding. There was another area of 2.2 cm oval often she'll nodule lateral to the right perinephric space and this was also suspected to be a focal area of hematoma. Based on all this, no antiplatelet agents or IV heparin was provided. The patient remains hemodynamically stable. Echocardiogram was ordered. The patient was kept on IV Zosyn. 4 calcitonin level was mildly elevated. White cell count of 15.4 with a hemoglobin of 11.1. Creatinine is also stable at 1.58 with a BUN of 34. LFTs are abnormal with an AST of 13 the bilirubin is also normal. Bilirubin is normal. Surgical notes is also normal. No abdominal distention. The patient is passing factors at this point in time. Bilirubin is normal bilirubin is normal, AST is 143, ALt of 103 alkaline phosphatase of 193. The patient is passing flatus. The patient has clear surgical wound site. 12/01 2021, the patient remains on high flow oxygen, 50 L, FiO2 of 60%. Oxygenation remains limited to the pulse ox of 93-94%. No chest x-rays available from today. She is using the incentive spirometer and she is falling approximately 750. She is doing deep breathing. She continues to have crackles in the lung bases bilaterally. No chest pain. Cardiac rhythm is sinus. Surgical incisions are clean and intact. There is no evidence of any bleed. Today's blood work is still pending. Of interest will be a follow-up creatinine level. Multivessel troponin peaked at 41. Cardiology is on the case. Anticoagulation was avoided. I think we got the okay from urology for initiation of the platelet agents and nontender the patient has a previous coronary stents, would suggest restarting the patient on aspirin and Plavix. The patient remains on IV Zosyn. Tolerating diet. No nausea. No vomiting. She is able to set up on a chair. Producing adequate amount of urine output. IV fluids are KVO. 2021, I'm seeing the patient for a follow-up. She is fully awake. No respiratory distress. she is sitting up on a chair. She is still hypoxic and she is requiring// also high flow oxygen with 50 L and FiO2 of 60%. pulse ox is currently ranging between 93-94%. Chest x-ray shows persistent consolidation of the left lower lobe on examination she continues to have crackles in lung bases bilaterally. she remains on IV Zosyn. Pro-calcitonin level is down to 0.4. the rest of the labs include a white cell count of 9.8 with a hemoglobin of 10.2. Creatinine is stable at 1.2 with a BUN of 34 and a sodium level is at 136. her surgical without striking and intact. She is afebrile. she is using bronchodilators. she warn her BiPAP overnight at a pressure of 12/6 and this morning she was transitioned back to high flow oxygen. no altered mentation. No chest pain. She is passing flatus. tolerating diet. No bowel movement activity. Incentive spirometer is up-to-date thousand. Objective - Vital Signs Vital signs: Vital Signs Temp 97.7 F 12/02/21 08:00 Pulse 60 12/02/21 08:36 Resp 14 12/02/21 08:00 BP 114/62 12/02/21 08:00 Pulse Ox 93 L 12/02/21 08:28 FiO2 60 12/02/21 08:28 Intake & Output 12/01/21 12/02/21 12/02/21 18:59 06:59 18:59 Intake Total 880 320 250 Output Total 775 1100 0 Balance 105 -780 250 Weight 73 kg Intake: IV 160 320 0.9 160 120 Piperacillin-Tazobactam 3 200 .375 gm In Sodium Chloride 0.9% 100 ml @ 25 mls/hr IVPB Q8H [facility] Rx#: [id number] Oral 720 250 Output: Urine 775 1100 0 Other: Voiding Method Bedside Commode Bedside Commode Bedside Commode # Voids 0 2 0 - Exam General appearance the patient is in mild to moderate degree of respiratory distress currently On airvo 50 liters 60 fio2 Head exam was generally normal. There was no scleral icterus or corneal arcus. Mucous membranes were moist. Neck was supple and without jugular venous distension, thyromegaly, or carotid bruits. Carotids were easily palpable bilaterally. There was no adenopathy. Lungs sounds are diminished in the patient's w has crackles within the lower lung goodrich bilaterally Heart sounds are irregular, consistent with the fibrillation with rapid ventricular response, no significant murmurs could be appreciated. Abdomen is soft. Bowel sounds are sluggish. Surgical wounds are dry and the patient has multiple surgical sides related to recent nephrectomy. Minimal direct tenderness. No rebound tenderness. No guarding. Examination of the extremities revealed easily palpable radial, femoral and pedal pulses. There was no cyanosis, clubbing or edema. Examination of the skin revealed no evidence of significant rashes, suspicious appearing nevi or other concerning lesions. Neurologically, the patient is awake and alert and the patient does not have any focal neurological deficit. Cranial nerves are essentially intact. - Labs CBC & Chem 7: 12/02/21 06:44 12/02/21 06:44 Labs: Abnormal Lab Results - Last 24 Hours (Table) 12/01/21 12/01/21 12/01/21 Range/Units 07:29 10:46 16:34 RBC (3.80-5.40) m/uL Hgb (11.4-16.0) gm/dL Hct (34.0-46.0) % Sodium 135 L (137-145) mmol/L BUN 35 H (7-17) mg/dL Creatinine 1.33 H (0.52-1.04) mg/dL Glucose 110 H (74-99) mg/dL POC Glucose (mg/dL) 126 H (70-110) mg/dL Calcium 8.1 L (8.4-10.2) mg/dL Procalcitonin 0.41 H (0.02-0.09) ng/mL 12/01/21 12/02/21 12/02/21 Range/Units 19:55 06:44 06:44 RBC 3.43 L (3.80-5.40) m/uL Hgb 10.2 L (11.4-16.0) gm/dL Hct 30.8 L (34.0-46.0) % Sodium 136 L (137-145) mmol/L BUN 34 H (7-17) mg/dL Creatinine 1.26 H (0.52-1.04) mg/dL Glucose 118 H (74-99) mg/dL POC Glucose (mg/dL) 145 H (70-110) mg/dL Calcium 8.3 L (8.4-10.2) mg/dL Procalcitonin (0.02-0.09) ng/mL 12/02/21 Range/Units 06:44 RBC (3.80-5.40) m/uL Hgb (11.4-16.0) gm/dL Hct (34.0-46.0) % Sodium (137-145) mmol/L BUN (7-17) mg/dL Creatinine (0.52-1.04) mg/dL Glucose (74-99) mg/dL POC Glucose (mg/dL) 120 H (70-110) mg/dL Calcium (8.4-10.2) mg/dL Procalcitonin (0.02-0.09) ng/mL Microbiology - Last 24 Hours (Table) 11/29/21 13:46 Blood Culture - Preliminary Blood No Growth after 48 hours 11/29/21 13:18 Blood Culture - Preliminary Blood No Growth after 48 hours Assessment and Plan Plan: Acute hypoxic respiratory failure currently on high flow oxygen with an FiO2 of 60% and the floor of 50 L. We'll obtain a follow-up chest x-ray today. Continue using incentive spirometer. Continue using diabetes also. She does have an extensive consolidation of the lung bases bilaterally, could be related to atelectasis/pneumonia. she remains on the same high flow settings. Chest x- ray still showing persistent consolidation lung base. pro calcitonin has declined and the patient is on IV Zosyn and using incentive spirometer. she is afebrile and hemodynamically stable. New onset atrial fibrillation with rapid ventricular response, converted into normal sinus rhythm Acute non-ST segment elevation myocardial infarction. The patient had ST segment depression on yesterday's EKG. No IV heparin was utilized due to urology's concern of bleeding postop. The patient's family chest pain and a troponin peak at 40. The patient remains free of any chest pain. Cardiology is on the case. We will going to restart aspirin and Plavix. Chest pain with an underlying history of coronary artery disease, rule out underlying angina versus chest pain related to the tachycardia induced by itchy fibrillation. EKG showing some ST segment depressions along the inferior leads. Currently back into normal sinus rhythm and the patient is currently free of any chest pain History of nephrectomy, right sided for a renal mass and the patient is postoperative day # 8. This was done robotically and the patient has the drain taken out Perinephric edema and areas of suspected hemorrhage in the perinephric area. Hemoglobin is stable and the patient is currently on no anticoagulants and nontender guidance will be used based on urology recommendation. history of coronary artery disease with previous stenting of the circumflex and lad Moderate severe aortic stenosis diabetes mellitus hypertension hyperlipidemia macular degeneration CAMILO and Cr 1. 26 plan Keep the patient on airvo, wean down FiO2 and keep the floor at 50 L , dropped FiO2 down to 50% and gradually the flow following that IV fluids at KVO metoprolol 25 mg twice a day No anticoagulants for now aggressive use of incentive spirometer The patient on Lovenox 40 mg for DVT prophylaxis and a combination of aspirin and Plavix as the patient does have underlying coronary stent Continue IV Zosyn and repeat a pro-calcitonin level from yesterday was at 0.4 Echocardiogram was noted and the patient has a ejection fraction of 45%, normal RV, moderate increase of the septal wall thickening, moderate degree of aortic stenosis with a peak greater than 36 and a mean gradient of 21. No evidence of any pericardial effusion. Patient is passing flatness and there is no indication for underlying ileus the patient is able to sit up on a chair. sliding scale insulin coverage We'll continue to follow
--- NOTE | 2021-12-02 11:23 | P.PN ---
Subjective Progress Note Date: 12/02/21 The patient is a 76-year-old female who is currently admitted to the hospital after undergoing a partial nephrectomy on 11/24/2021. Postoperative complications included A. fib with RVR and pneumonia. On 11/28/2021 patient was started on amiodarone drip, where she spontaneously converted back to sinus mec hanism. Overall the patient was in atrial fibrillation for less than 24 hours. On 11/29/2021, the patient had a rapid increase in liver enzymes as well as a peak troponin of 41. Computed tomography scan of the chest and abdomen showed bibasilar airspace disease as well as perinephric edema along the posterior margin, suggesting postoperative hemorrhage/hematoma. Echocardiogram revealed distal anteroseptal hypokinesis. The patient was interviewed and examined sitting up in the recliner chair. She states she is feeling much better overall. She is in the process of being weaned down off her oxygen. She denies any chest pain or pressure. No heart racing or fluttering. GENERAL: Well-appearing, well-nourished and in no acute distress. NECK: Supple without JVD or thyromegaly. LUNGS: Breath sounds diminished to auscultation bilaterally. Respiration equal and unlabored. Fine crackles noted in her bases. HEART: Regular rate and rhythm. Systolic murmur. No rubs or gallops. S1 and S2 heard. EXTREMITIES: Normal range of motion, no edema. No clubbing or cyanosis. Peripheral pulses intact and strong. VITALS: Blood pressure 116/55, respiratory rate 20, pulse 51, SpO2 90% on 50% high flow TELEMETRY: Sinus rhythm. No arrhythmias. LABS: WBC 9.8, hemoglobin 10.2, hematocrit 30.8, platelet 232, sodium 136, potassium 4.1, BUN 34, creatinine 1.26 IMPRESSION: Atrial fibrillation with RVR, spontaneous conversion back to sinus rhythm within 24 hours Type II myocardial infarction, medical management with recent surgery Status post nephrectomy, postop day 6 Elevated liver enzymes History of coronary artery disease History diabetes mellitus History of hypertension PLAN: Continue medical management as she remains asymptomatic from the cardiac standpoint Continue aggressive pulmonary hygiene No further recommendations from a cardiac standpoint. I am dictating on behalf of Dr Erwin Olivia's history/physical and assessment/plan. Objective - Vital Signs Vital signs: Vital Signs Temp 97.7 F 12/02/21 08:00 Pulse 51 L 12/02/21 11:00 Resp 20 12/02/21 11:00 BP 116/55 12/02/21 11:00 Pulse Ox 90 L 12/02/21 11:00 FiO2 50 12/02/21 11:00 Intake & Output 12/01/21 12/02/21 12/02/21 18:59 06:59 18:59 Intake Total 880 320 250 Output Total 775 1100 300 Balance 105 -780 -50 Weight 73 kg 73 kg Intake: IV 160 320 0.9 160 120 Piperacillin-Tazobactam 3 200 .375 gm In Sodium Chloride 0.9% 100 ml @ 25 mls/hr IVPB Q8H [facility] Rx#: [id number] Oral 720 250 Output: Urine 775 1100 300 Other: Voiding Method Bedside Commode Bedside Commode Bedside Commode # Voids 0 2 0 - Labs CBC & Chem 7: 12/02/21 06:44 12/02/21 06:44 Labs: Abnormal Lab Results - Last 24 Hours (Table) 12/01/21 12/01/21 12/01/21 Range/Units 10:46 16:34 19:55 RBC (3.80-5.40) m/uL Hgb (11.4-16.0) gm/dL Hct (34.0-46.0) % Sodium 135 L (137-145) mmol/L BUN 35 H (7-17) mg/dL Creatinine 1.33 H (0.52-1.04) mg/dL Glucose 110 H (74-99) mg/dL POC Glucose (mg/dL) 126 H 145 H (70-110) mg/dL Calcium 8.1 L (8.4-10.2) mg/dL 12/02/21 12/02/21 12/02/21 Range/Units 06:44 06:44 06:44 RBC 3.43 L (3.80-5.40) m/uL Hgb 10.2 L (11.4-16.0) gm/dL Hct 30.8 L (34.0-46.0) % Sodium 136 L (137-145) mmol/L BUN 34 H (7-17) mg/dL Creatinine 1.26 H (0.52-1.04) mg/dL Glucose 118 H (74-99) mg/dL POC Glucose (mg/dL) 120 H (70-110) mg/dL Calcium 8.3 L (8.4-10.2) mg/dL Microbiology - Last 24 Hours (Table) 11/29/21 13:46 Blood Culture - Preliminary Blood No Growth after 48 hours 11/29/21 13:18 Blood Culture - Preliminary Blood No Growth after 48 hours
[2021-12-02 11:28] LABS: Glucose,Whole Blood 142 mg/dL (70-110)
[2021-12-02 16:46] LABS: Glucose,Whole Blood 204 mg/dL (70-110)
--- NOTE | 2021-12-02 18:45 | P.PN ---
Subjective This is a 76 year old female, post operative day #4 right partial nephrectomy for known history of right renal mass. Patients hospital stay complicated by shortness of breath and hypoxia, with chest pain. A team was called this morning and patient has been transferred to intensive care unit for close monitoring. Found to be in atrial fibrillation with rapid ventricular rate and received amiodarone bolus and continues on amiodarone infusion, pending cardiology consultation. Patient also received a dose of IV lasix 40 mg today. D-Dimer elevated at 0.96, chest CTA is negative for pulmonary embolism. Chest xray showing patchy bibasilar infiltrates. Continues on bronchodilators, empiric antibiotics with IV zosyn. Echocardiogram completed in April of this year shows an EF of 45-50% with LV wall hypokinesis, mild MR, mild TR. Labs reviewed today showing a white count of 13.2, sodium 136, beyond 20, creatinine 1.25. He does have troponin elevation at 1.400. Liver enzymes are also elevated, proBNP 662. Covid negative. He remains afebrile, heart rate 140 8H fibrillation, blood pressure 101/73, patient is on a non rebreather at 15 L. Patient is on a combination of amlodipine/benazepril daily which we will hold at this time secondary to low normal BPs. 11/29/2021 Patient is evaluated today in intensive care unit. Converted to normal sinus rhythm yesterday afternoon and amiodarone has been discontinued. Urology recommending for patient to hold anticoagulation currently and eliquis has been stopped at this time. Troponins have been trended and increased up to 41.000. Cardiology following patient. Echocardiogram has been ordered. Patient had chest xray this morning showing basilar pneumonia with findings similar to previous exam with associated effusion. Follow up abdomen chest CT showing possible perinephric hemorrhage/hematoma. with possible additional areas of strandy hemorrhage in the right pericaval region. Also, possible small focal hematoma vs. metastatic deposit in lateral right perinephric space. There is possible infectious or aspiration pneumonitis with trace right pleural effusion. No pericardial effusion. There is coronary artery disease evident. Patient continues on BiPAP with FiO2 of 88%, afebrile, maintaining normal sinus rhythm heart rate 82, blood pressure 106/59. Continues on IV zosyn. Labs reviewed showing BUN 30, creatinine 1.53, AST 204, ALT 122, alk phos 152 which have increased. 11/30/2021 Patient continues to be monitored closely in intensive care unit. She has been transitioned from BiPAP onto high flow airvo oxygen support with 55/80. Had low grade fever 99.8 around midnight. Today she is sitting up in chair, reports having cough with occasional sputum production. Reports breathing better, no chest pain. Has not had BM, she does not want any additional stool softeners besides colace. Chest xray today showing possible developing pulmonary vascular congestion, with developing patchy edema/infiltrate right lower lung and consolidation left base. Continues on IV zosyn. Procalcitonin level today 0.48. Creatinine today 1.58. Has been started on baby aspirin. Urology recommending to hold off on anticoagulation due to risk for bleeding. She is postoperative day #6 right partial nephrectomy. 12/01/2021 Patient is evaluated in the intensive care unit. Patient is postoperative day #7 right partial nephrectomy. She has been resumed on plavix and also started on lovenox today. Continues on airvo oxygen support 50/50 with oxygen saturations of 93%. Afebrile overnight. Blood cultures are currently negative. Continues on IV antibiotics with IV zosyn empirically. She has not had a BM postoperatively does have increased bowel sounds today. She is agreeable to miralax in addition to colace. Labs today showing sodium level of 135, potassium 4.1, BUN 35, creatinine 1.33, glucose in the 100s. Procalcitonin level today 0.41. proBNP was checked at 2790. Echocardiogram showing EF 45% with moderate LVH, mild MR, Moderate aortic stenosis. 12/02/2021 Patient status post right nephrectomy for kidney mass with pathology showing renal cell carcinoma with clear margins, patient does not have a Porter catheter and sheaths. Without problem and urologist already followed up with the patient. Patient also with new onset A. fib and her rate is controlled, no anticoagulation for her recent surgery. She is on prophylactic Lovenox Also with evidence of bilateral pneumonia, left more than right lower lobe. Currently covered with Zosyn. FiO2 is 50% with global 45 L per minute and gradually improving. Objective - Vital Signs Vital signs: Vital Signs Temp 97.7 F 12/02/21 12:00 Pulse 59 L 12/02/21 13:00 Resp 24 12/02/21 13:00 BP 133/84 12/02/21 13:00 Pulse Ox 92 L 12/02/21 13:00 FiO2 50 12/02/21 12:00 Intake & Output 12/01/21 12/02/21 12/02/21 18:59 06:59 18:59 Intake Total 880 320 650 Output Total 775 1100 400 Balance 105 -780 250 Weight 73 kg 73 kg Intake: IV 160 320 100 0.9 160 120 Piperacillin-Tazobactam 3 200 100 .375 gm In Sodium Chloride 0.9% 100 ml @ 25 mls/hr IVPB Q8H [facility] Rx#: [id number] Oral 720 550 Output: Urine 775 1100 400 Other: Voiding Method Bedside Commode Bedside Commode Bedside Commode # Voids 0 2 0 - Exam GENERAL: The patient is alert and oriented x3, not in any acute distress. Well developed, well nourished. HEENT: Pupils are round and equally reacting to light. EOMI. No scleral icterus. No conjunctival pallor. Normocephalic, atraumatic. No pharyngeal erythema. No thyromegaly. CARDIOVASCULAR: S1 and S2 present. No murmurs, rubs, or gallops. PULMONARY: Chest is clear to auscultation, no wheezing or crackles. ABDOMEN: Soft, nontender, nondistended, normoactive bowel sounds. No palpable organomegaly. MUSCULOSKELETAL: No joint swelling or deformity. EXTREMITIES: No cyanosis, clubbing, or pedal edema. NEUROLOGICAL: Gross neurological examination did not reveal any focal deficits. SKIN: No rashes. no petechiae. - Labs CBC & Chem 7: 12/02/21 06:44 12/02/21 06:44 Labs: Abnormal Lab Results - Last 24 Hours (Table) 12/01/21 12/01/21 12/02/21 Range/Units 16:34 19:55 06:44 RBC 3.43 L (3.80-5.40) m/uL Hgb 10.2 L (11.4-16.0) gm/dL Hct 30.8 L (34.0-46.0) % Sodium (137-145) mmol/L BUN (7-17) mg/dL Creatinine (0.52-1.04) mg/dL Glucose (74-99) mg/dL POC Glucose (mg/dL) 126 H 145 H (70-110) mg/dL Calcium (8.4-10.2) mg/dL 12/02/21 12/02/21 12/02/21 Range/Units 06:44 06:44 11:26 RBC (3.80-5.40) m/uL Hgb (11.4-16.0) gm/dL Hct (34.0-46.0) % Sodium 136 L (137-145) mmol/L BUN 34 H (7-17) mg/dL Creatinine 1.26 H (0.52-1.04) mg/dL Glucose 118 H (74-99) mg/dL POC Glucose (mg/dL) 120 H 142 H (70-110) mg/dL Calcium 8.3 L (8.4-10.2) mg/dL Microbiology - Last 24 Hours (Table) 11/29/21 13:46 Blood Culture - Preliminary Blood No Growth after 48 hours 11/29/21 13:18 Blood Culture - Preliminary Blood No Growth after 48 hours Assessment and Plan Assessment: Acute hypoxic respiratory failure secondary to possible bilateral pneumonia currently on airvo oxygen support Acute hypoxic respiratory failure secondary to above New-onset atrial fibrillation with rapid ventricular rate, converted to normal sinus rhythm. Troponin elevation secondary to type 2 NE, managed medically Status post robotic partial right nephrectomy with pathology: Renal cell carcinoma with clear margin Acute renal injury improving Elevated liver enzymes Diabetes mellitus type 2 Hypertension currently blood pressure is 100 systolic Hyperlipidemia History coronary artery disease status post cardiac stents in the past Plan: Patient is being monitored in intensive care unit currently on Airvo 45/50 Continue empiric antibiotic coverage, currently on Zosyn and bronchodilators Hold amlodipine/benazepril combination Continue daily stool softener, miralax added today Currently on aspirin/plavix combination No further cardiac workup. Urologist of the case GI Prophylaxis:Pepcid DVT Prophylaxis: Lovenox Full Code
[2021-12-02 20:59] LABS: Glucose,Whole Blood 188 mg/dL (70-110)
[2021-12-02] MEDS: ATORVASTATIN 80 MG TAB PO SCH (21:17)
[2021-12-03] MEDS: PIPERACILLIN-TAZOBACTAM 3.375 GM in SODIUM CHLORIDE 0.9% 100 ML IVPB SCH ×3 (03:26→20:27)
[2021-12-03 06:36] LABS: Glucose,Whole Blood 109 mg/dL (70-110)
[2021-12-03] MEDS: INSULIN ASPART (NovoLOG) 100 UNIT/ML VIAL SQ SCH ×4 (07:00→20:26)
--- NOTE | 2021-12-03 07:28 | XR ---
EXAMINATION TYPE: XR chest 1V DATE OF EXAM: 12/03/2021 COMPARISON: Chest x-ray 12/02/2021 HISTORY: Pneumonia TECHNIQUE: Single frontal view of the chest is obtained. FINDINGS: Cardiac mediastinal silhouette is stable. Groundglass opacity present in the bilateral franklyn gs, basilar density obscures the left hemidiaphragm. No evident pneumothorax, difficult to exclude le ft pleural effusion. Aorta is dense. There are overlying artifacts. IMPRESSION: Correlate for congestive heart failure, pneumonia not excluded
[2021-12-03] MEDS: IPRATROPIUM-ALBUTEROL 3 ML NEB INHALATION SCH ×4 (08:21→20:59)
--- NOTE | 2021-12-03 08:22 | P.PN ---
Subjective Progress Note Date: 12/03/21 This is a 76-year-old female patient of the transferred to the intensive care unit for increased shortness of breath. The patient was found to be in atrial fibrillation with rapid ventricular response and for that reason the patient got transferred to the ICU. The patient is currently postop day #4. The patient underwent a right partial nephrectomy. A CTA of the chest was done yesterday and the patient was found to have no evidence of any pulmonary embolism. Note that the patient was found to have a 3.5 cm right sided renal mass. Based on that, the patient was taken to the operating room for a nephrectomy. The patient is known to be having other comorbid conditions including hypertension, hyperlipidemia diabetes mellitus. The patient is also known to have CAD with previous SD. She has previous chronic catheterization and stenting.. This morning, the patient Got transferred to the intensive care unit the patient developed itchy fibrillation with rapid ventricular response. She is currently on the heart rate of 137, irregular with a blood pressure 113/75. She was placed on 100% nonrebreather facemask and her current pulse ox is 94%. The patient is also having some chest pain this morning. Morning chest pains. The patient is also having chest pain which is sternal, 6 out of 10 in severity. Cardiac enzymes are pending. EKG was done and it showed atrial fibrillation with a rapid ventricular response . I reviewed the EKG there is no significant ST segment changes. There is voltage criteria for LVH. There may be some inferior wall ST segment depression. The chest x-ray also showed some limited bibasilar pulmonary infiltrates along with some cardiomegaly. Lung volumes are essentially small. The patient is currently postoperative day #4. IV fluids are currently at KVO. The patient came in to the ICU and she was given amiodarone bolus initially at a dose of 150 mg of following that she was started on a maintenance of 1 mg/m. I also reviewed the CTA of the chest that was done on 11/27/2021. As mentioned, there is evidence of a pulmonary embolism. There is significant atelectatic changes in the lung bases bilaterally. No reported aspiration. She has an incentive spirometer at the bedside. In terms of her blood work, the patient's white cell count that is a 50 point the XII.5 and a platelet count of 204. Electrolytes from yesterday were all within normal limits with the B 20/20 creatinine 1.09. Sodium is 136. Cardiac enzymes are still pending. The patient is diabetic and she is on a combination of antihypertensive diabetic medication. She is on Dilaudid for pain control. She is also on IV Zosyn that was started 11/26/21 as an empiric antibiotic coverage.the patient had an echocardiogram on 05/05/2021 that showed segmental wall motion abnormalities involving the anterior wall, inferior wall of the septal wall. Ejection fraction was around 45-50%. The LV size was normal. No significant valvular abnormalities were noted. No significant pulmonary hypertension. Her previous cardiac catheterization was done in April 2021. She has undergone stenting to the LAD and subsequently to the circumflex. As such, the patient has stool coronary stents and the patient was receiving dual antiplatelet treatment on outpatient basis. On 11/29/2021, the patient continues to have shortness of breath and she is still struggling with her breathing and she is quite tachypneic with respiratory rate ranging between 30 and 40 breasts a minute. She remains on a BiPAP at a pressure of 12 was 6 cm of water FiO2 of 80%. She was transitioned from 100% nonrebreather with a high flow and later on her BiPAP. Chest x-ray showing infiltration of the lung base bilaterally. The patient was given a total of 2 doses of Lasix yesterday and her creatinine is currently up to 1.5. She did convert into normal sinus rhythm. She is normotensive for now. Echocardiogram from today is still pending. Meanwhile, her fluid balance is -560 mL over the past 24 hours. In terms of her labs, the whites of +0.3 with a hemoglobin 11.5 and a platelet count of 211. Sodium is 136, potassium of 4.2, BNP is a 30 with creatinine of 1.5. LFTs are still slightly abnormal. Abdomen is distended. Surgical 1 sets of dry clean and uninfected troponin peaked at 1.4. IV heparin was contemplated. Nevertheless, I had a discussion with urology who opted not t o put the patient to coagulation due to concerns of bleeding within the kidney surgical sites. The patient remains on IV Zosyn for now as an empiric antibiotic coverage. She is also on metoprolol 25 mg by mouth twice a day. 2021, patient is being seen postop day #6 following her partial nephrectomy on the right. She developed an acute non-ST segment elevation myocardial infarction and bilateral pneumonia and this controlled the patient to an acute hypoxic respiratory failure. The patient was on a BiPAP and currently she is on high flow oxygen at 60 L in a fight over 85%. I performed a CAT scan of the chest and abdomen yesterday and the CAT scan of the chest showed extensive lower lobe consolidation bilaterally consistent with pneumonia. CAT scan of the abdomen showed postsurgical changes along the posterior aspect of the right kidney. There was extensive adjacent edema with increased density up to 7 cm in size by 3.1 cm in size. Some underlying surgical material is present. There is extensive edema and stranding fluid extending down to the right retroperitoneum in the right perinephric space. Suspect some hemorrhagic material along the surgical bed. In summary, the findings were consistent with perinephric edema and some area of suspected hemorrhagic stranding. There was another area of 2.2 cm oval often she'll nodule lateral to the right perinephric space and this was also suspected to be a focal area of hematoma. Based on all this, no antiplatelet agents or IV heparin was provided. The patient remains hemodynamically stable. Echocardiogram was ordered. The patient was kept on IV Zosyn. 4 calcitonin level was mildly elevated. White cell count of 15.4 with a hemoglobin of 11.1. Creatinine is also stable at 1.58 with a BUN of 34. LFTs are abnormal with an AST of 13 the bilirubin is also normal. Bilirubin is normal. Surgical notes is also normal. No abdominal distention. The patient is passing factors at this point in time. Bilirubin is normal bilirubin is normal, AST is 143, ALt of 103 alkaline phosphatase of 193. The patient is passing flatus. The patient has clear surgical wound site. 12/01 2021, the patient remains on high flow oxygen, 50 L, FiO2 of 60%. Oxygenation remains limited to the pulse ox of 93-94%. No chest x-rays available from today. She is using the incentive spirometer and she is falling approximately 750. She is doing deep breathing. She continues to have crackles in the lung bases bilaterally. No chest pain. Cardiac rhythm is sinus. Surgical incisions are clean and intact. There is no evidence of any bleed. Today's blood work is still pending. Of interest will be a follow-up creatinine level. Multivessel troponin peaked at 41. Cardiology is on the case. Anticoagulation was avoided. I think we got the okay from urology for initiation of the platelet agents and nontender the patient has a previous coronary stents, would suggest restarting the patient on aspirin and Plavix. The patient remains on IV Zosyn. Tolerating diet. No nausea. No vomiting. She is able to set up on a chair. Producing adequate amount of urine output. IV fluids are KVO. 2021, I'm seeing the patient for a follow-up. She is fully awake. No respiratory distress. she is sitting up on a chair. She is still hypoxic and she is requiring// also high flow oxygen with 50 L and FiO2 of 60%. pulse ox is currently ranging between 93-94%. Chest x-ray shows persistent consolidation of the left lower lobe on examination she continues to have crackles in lung bases bilaterally. she remains on IV Zosyn. Pro-calcitonin level is down to 0.4. the rest of the labs include a white cell count of 9.8 with a hemoglobin of 10.2. Creatinine is stable at 1.2 with a BUN of 34 and a sodium level is at 136. her surgical without striking and intact. She is afebrile. she is using bronchodilators. she warn her BiPAP overnight at a pressure of 12/6 and this morning she was transitioned back to high flow oxygen. no altered mentation. No chest pain. She is passing flatus. tolerating diet. No bowel movement activity. Incentive spirometer is up-to-date thousand. 12/03/2021, patient remains on high flow oxygen. This morning, the patient is on 45 L with an FiO2 of 50%. Chest x-ray from this morning shows stable bibasilar pulmonary infiltrates along with some basilar density involving the left hemidiaphragm. No evidence of any pneumothorax. The patient is sitting up on a chair and she continues to use incentive spirometer. Her current pulse ox is around 96%. Labs are still pending for now. She is afebrile and she is hemodynamically stable. She continues to be on IV Zosyn. She is on Lovenox 30 mg subcu for prophylaxis. She is on DuoNeb treatments on the clock. She is also on a combination of aspirin and Plavix. Cardiac rhythm remained sinus. Tolerating diet. She is on a sliding scale insulin coverage for blood sugar control. She continues to wear the BiPAP overnight at a pressure of 12/6 with residual 50%. Objective - Vital Signs Vital signs: Vital Signs Temp 97.6 F 12/03/21 04:04 Pulse 53 L 12/03/21 07:00 Resp 25 H 12/03/21 07:00 BP 130/70 12/03/21 07:00 Pulse Ox 96 12/03/21 07:00 FiO2 50 12/03/21 04:04 Intake & Output 12/02/21 12/03/21 12/03/21 18:59 06:59 18:59 Intake Total 1000 200 Output Total 850 700 Balance 150 -500 Weight 73 kg 78 kg Intake: IV 100 Piperacillin-Tazobactam 3 100 .375 gm In Sodium Chloride 0.9% 100 ml @ 25 mls/hr IVPB Q8H [facility] Rx#: [id number] Intake, IV Titration 200 Amount Piperacillin-Tazobactam 3 200 .375 gm In Sodium Chloride 0.9% 100 ml @ 25 mls/hr IVPB Q8H [facility] Rx#: [id number] Oral 900 Output: Urine 850 700 Other: Voiding Method Bedside Commode Bedside Commode # Voids 0 # Bowel Movements 1 - Exam General appearance the patient is in mild to moderate degree of respiratory distress currently On airvo 50 liters 60 fio2 Head exam was generally normal. There was no scleral icterus or corneal arcus. Mucous membranes were moist. Neck was supple and without jugular venous distension, thyromegaly, or carotid bruits. Carotids were easily palpable bilaterally. There was no adenopathy. Lungs sounds are diminished in the patient's w has crackles within the lower lung goodrich bilaterally Heart sounds are irregular, consistent with the fibrillation with rapid ventricular response, no significant murmurs could be appreciated. Abdomen is soft. Bowel sounds are sluggish. Surgical wounds are dry and the patient has multiple surgical sides related to recent nephrectomy. Minimal direct tenderness. No rebound tenderness. No guarding. Examination of the extremities revealed easily palpable radial, femoral and pedal pulses. There was no cyanosis, clubbing or edema. Examination of the skin revealed no evidence of significant rashes, suspicious a ppearing nevi or other concerning lesions. Neurologically, the patient is awake and alert and the patient does not have any focal neurological deficit. Cranial nerves are essentially intact. - Labs CBC & Chem 7: 12/02/21 06:44 12/02/21 06:44 Labs: Abnormal Lab Results - Last 24 Hours (Table) 12/02/21 12/02/21 12/02/21 Range/Units 11:26 16:45 20:56 POC Glucose (mg/dL) 142 H 204 H 188 H (70-110) mg/dL Microbiology - Last 24 Hours (Table) 11/29/21 13:46 Blood Culture - Preliminary Blood No Growth after 72 hours 11/29/21 13:18 Blood Culture - Preliminary Blood No Growth after 72 hours Assessment and Plan Plan: Acute hypoxic respiratory failure currently on high flow oxygen with an FiO2 of 50% and the flow 45 L. We'll obtain a follow-up chest x-ray today. Continue using incentive spirometer. Continue using diabetes also. She does have an extensive consolidation of the lung bases bilaterally, could be related to atelectasis/pneumonia. she remains on the same high flow settings. Chest x-ray still showing persistent consolidation lung base. pro calcitonin has declined and the patient is on IV Zosyn and using incentive spirometer. she is afebrile and hemodynamically stable. The patient continues to have crackles in the lung bases bilaterally. She is doing slow but ongoing progress. Chest x-ray remains essentially unchanged. Her proBNP level was 2790. Fall calcitonin level is down to 0.41. New onset atrial fibrillation with rapid ventricular response, converted into normal sinus rhythm Acute non-ST segment elevation myocardial infarction. The patient had ST segment depression on yesterday's EKG. No IV heparin was utilized due to urology's concern of bleeding postop. The patient's family chest pain and a troponin peak at 40. The patient remains free of any chest pain. Cardiology is on the case. We will going to restart aspirin and Plavix. Chest pain with an underlying history of coronary artery disease, rule out underlying angina versus chest pain related to the tachycardia induced by itchy fibrillation. EKG showing some ST segment depressions along the inferior leads. Currently back into normal sinus rhythm and the patient is currently free of any chest pain History of nephrectomy, right sided for a renal mass and the patient is postoperative day # 9. This was done robotically and the patient has the drain taken out Perinephric edema and areas of suspected hemorrhage in the perinephric area. Hemoglobin is stable and the patient is currently on no anticoagulants and nontender guidance will be used based on urology recommendation. history of coronary artery disease with previous stenting of the circumflex and lad Moderate severe aortic stenosis diabetes mellitus hypertension hyperlipidemia macular degeneration CAMILO and Cr 1. 26 plan Awaiting labs from today Keep the patient on airvo, wean down FiO2 and keep the floor at 40 L , dropped FiO2 down to 50% and gradually the flow following that IV fluids at KVO metoprolol 25 mg twice a day No anticoagulants for now Aggressive use of incentive spirometer The patient on Lovenox 40 mg for DVT prophylaxis and a combination of aspirin and Plavix as the patient does have underlying coronary stent Continue IV Zosyn and repeat a pro-calcitonin level from yesterday was at 0.4 Echocardiogram was noted and the patient has a ejection fraction of 45%, normal RV, moderate increase of the septal wall thickening, moderate degree of aortic stenosis with a peak greater than 36 and a mean gradient of 21. No evidence of any pericardial effusion. Patient is passing flatness and there is no indication for underlying ileus patient is able to sit up on a chair. sliding scale insulin coverage We'll continue to follow
[2021-12-03 08:29] LABS: Calcium 8.4 mg/dL (8.4-10.2); Magnesium 2.5 mg/dL (1.6-2.3); Potassium 4.5 mmol/L (3.5-5.1)
[2021-12-03] MEDS: ASPIRIN 81 MG PO SCH (10:04)
[2021-12-03] MEDS: CLOPIDOGREL 75 MG TAB PO SCH (10:04)
[2021-12-03] MEDS: polyethylene glycoL 3350 17 GM POWD.PACK PO SCH (10:04)
[2021-12-03] MEDS: ENOXAPARIN 30 MG/0.3 ML SYRINGE SQ SCH (10:05)
[2021-12-03] MEDS: FAMOTIDINE 20 MG TAB PO SCH ×2 (10:05→10:18)
[2021-12-03] MEDS: DOCUSATE 100 MG CAP PO SCH (10:05)
--- NOTE | 2021-12-03 10:15 | P.PN ---
Subjective Progress Note Date: 12/03/21 the patient is postop right partial nephrectomy. She has had a postoperative pneumonia and A. fib. She is slowly recuperating in the intensive care unit. From urologic standpoint she is doing well, discharge home whenever she is medically stable. Objective - Vital Signs Vital signs: Vital Signs Temp 97.6 F 12/03/21 04:04 Pulse 57 L 12/03/21 10:00 Resp 19 12/03/21 10:00 BP 134/69 12/03/21 10:00 Pulse Ox 92 L 12/03/21 10:00 FiO2 50 12/03/21 08:24 Intake & Output 12/02/21 12/03/21 12/03/21 18:59 06:59 18:59 Intake Total 1000 200 Output Total 850 700 Balance 150 -500 Weight 73 kg 78 kg Intake: IV 100 Piperacillin-Tazobactam 3 100 .375 gm In Sodium Chloride 0.9% 100 ml @ 25 mls/hr IVPB Q8H JANETTE Rx#: [id number] Intake, IV Titration 200 Amount Piperacillin-Tazobactam 3 200 .375 gm In Sodium Chloride 0.9% 100 ml @ 25 mls/hr IVPB Q8H JANETTE Rx#: [id number] Oral 900 Output: Urine 850 700 Other: Voiding Method Bedside Commode Bedside Commode # Voids 0 # Bowel Movements 1 - Labs CBC & Chem 7: 12/02/21 06:44 12/03/21 06:48 Labs: Abnormal Lab Results - Last 24 Hours (Table) 12/02/21 12/02/21 12/02/21 Range/Units 11:26 16:45 20:56 BUN (7-17) mg/dL Creatinine (0.52-1.04) mg/dL Glucose (74-99) mg/dL POC Glucose (mg/dL) 142 H 204 H 188 H (70-110) mg/dL Magnesium (1.6-2.3) mg/dL 12/03/21 Range/Units 06:48 BUN 31 H (7-17) mg/dL Creatinine 1.16 H (0.52-1.04) mg/dL Glucose 105 H (74-99) mg/dL POC Glucose (mg/dL) (70-110) mg/dL Magnesium 2.5 H (1.6-2.3) mg/dL Microbiology - Last 24 Hours (Table) 11/29/21 13:46 Blood Culture - Preliminary Blood No Growth after 72 hours 11/29/21 13:18 Blood Culture - Preliminary Blood No Growth after 72 hours
[2021-12-03] MEDS: METOPROLOL TARTRATE 25 MG TAB PO SCH ×2 (10:16→20:26)
[2021-12-03 11:31] LABS: Glucose,Whole Blood 203 mg/dL (70-110)
[2021-12-03 16:20] LABS: Glucose,Whole Blood 162 mg/dL (70-110)
[2021-12-03 20:20] LABS: Glucose,Whole Blood 228 mg/dL (70-110)
[2021-12-03] MEDS: ATORVASTATIN 80 MG TAB PO SCH (20:26)
--- NOTE | 2021-12-03 21:07 | P.PN ---
Subjective This is a 76 year old female, post operative day #4 right partial nephrectomy for known history of right renal mass. Patients hospital stay complicated by shortness of breath and hypoxia, with chest pain. A team was called this morning and patient has been transferred to intensive care unit for close monitoring. Found to be in atrial fibrillation with rapid ventricular rate and received amiodarone bolus and continues on amiodarone infusion, pending cardiology consultation. Patient also received a dose of IV lasix 40 mg today. D-Dimer elevated at 0.96, chest CTA is negative for pulmonary embolism. Chest xray showing patchy bibasilar infiltrates. Continues on bronchodilators, empiric antibiotics with IV zosyn. Echocardiogram completed in April of this year shows an EF of 45-50% with LV wall hypokinesis, mild MR, mild TR. Labs reviewed today showing a white count of 13.2, sodium 136, beyond 20, creatinine 1.25. He does have troponin elevation at 1.400. Liver enzymes are also elevated, proBNP 662. Covid negative. He remains afebrile, heart rate 140 8H fibrillation, blood pressure 101/73, patient is on a non rebreather at 15 L. Patient is on a combination of amlodipine/benazepril daily which we will hold at this time secondary to low normal BPs. 11/29/2021 Patient is evaluated today in intensive care unit. Converted to normal sinus rhythm yesterday afternoon and amiodarone has been discontinued. Urology recommending for patient to hold anticoagulation currently and eliquis has been stopped at this time. Troponins have been trended and increased up to 41.000. Cardiology following patient. Echocardiogram has been ordered. Patient had chest xray this morning showing basilar pneumonia with findings similar to previous exam with associated effusion. Follow up abdomen chest CT showing possible perinephric hemorrhage/hematoma. with possible additional areas of strandy hemorrhage in the right pericaval region. Also, possible small focal hematoma vs. metastatic deposit in lateral right perinephric space. There is possible infectious or aspiration pneumonitis with trace right pleural effusion. No pericardial effusion. There is coronary artery disease evident. Patient continues on BiPAP with FiO2 of 88%, afebrile, maintaining normal sinus rhythm heart rate 82, blood pressure 106/59. Continues on IV zosyn. Labs reviewed showing BUN 30, creatinine 1.53, AST 204, ALT 122, alk phos 152 which have increased. 11/30/2021 Patient continues to be monitored closely in intensive care unit. She has been transitioned from BiPAP onto high flow airvo oxygen support with 55/80. Had low grade fever 99.8 around midnight. Today she is sitting up in chair, reports having cough with occasional sputum production. Reports breathing better, no chest pain. Has not had BM, she does not want any additional stool softeners besides colace. Chest xray today showing possible developing pulmonary vascular congestion, with developing patchy edema/infiltrate right lower lung and consolidation left base. Continues on IV zosyn. Procalcitonin level today 0.48. Creatinine today 1.58. Has been started on baby aspirin. Urology recommending to hold off on anticoagulation due to risk for bleeding. She is postoperative day #6 right partial nephrectomy. 12/01/2021 Patient is evaluated in the intensive care unit. Patient is postoperative day #7 right partial nephrectomy. She has been resumed on plavix and also started on lovenox today. Continues on airvo oxygen support 50/50 with oxygen saturations of 93%. Afebrile overnight. Blood cultures are currently negative. Continues on IV antibiotics with IV zosyn empirically. She has not had a BM postoperatively does have increased bowel sounds today. She is agreeable to miralax in addition to colace. Labs today showing sodium level of 135, potassium 4.1, BUN 35, creatinine 1.33, glucose in the 100s. Procalcitonin level today 0.41. proBNP was checked at 2790. Echocardiogram showing EF 45% with moderate LVH, mild MR, Moderate aortic stenosis. 12/02/2021 Patient status post right nephrectomy for kidney mass with pathology showing renal cell carcinoma with clear margins, patient does not have a Porter catheter and sheaths. Without problem and urologist already followed up with the patient. Patient also with new onset A. fib and her rate is controlled, no anticoagulation for her recent surgery. She is on prophylactic Lovenox Also with evidence of bilateral pneumonia, left more than right lower lobe. Currently covered with Zosyn. FiO2 is 50% with global 45 L per minute and gradually improving. 12/03/2021 Patient looks similar to yesterday sitting in chair with air for nasal cannula with a similar to yesterday with flow rate 42-year-old FiO2 50% patient is still tachypneic and chest x-ray showed evidence of CHF Heart A. fib heart rate looks controlled. With no chest pain However patient mainly has extensive consolidation of lung secondary to infection and is currently on Zosyn. Also she is on aspirin and Plavix and Lovenox Objective - Vital Signs Vital signs: Vital Signs Temp 97.9 F 12/03/21 12:00 Pulse 68 12/03/21 12:35 Resp 21 12/03/21 12:00 BP 141/69 12/03/21 12:00 Pulse Ox 91 L 12/03/21 12:00 FiO2 50 12/03/21 12:25 Intake & Output 12/02/21 12/03/21 12/03/21 18:59 06:59 18:59 Intake Total 1000 200 30 Output Total 850 700 Balance 150 -500 30 Weight 73 kg 78 kg Intake: IV 100 30 0.9 30 Piperacillin-Tazobactam 3 100 .375 gm In Sodium Chloride 0.9% 100 ml @ 25 mls/hr IVPB Q8H JANETTE Rx#: [id number] Intake, IV Titration 200 Amount Piperacillin-Tazobactam 3 200 .375 gm In Sodium Chloride 0.9% 100 ml @ 25 mls/hr IVPB Q8H JANETTE Rx#: [id number] Oral 900 Output: Urine 850 700 Other: Voiding Method Bedside Commode Bedside Commode # Voids 0 # Bowel Movements 1 - Exam GENERAL: The patient is alert and oriented x3, not in any acute distress. Well d eveloped, well nourished. HEENT: Pupils are round and equally reacting to light. EOMI. No scleral icterus. No conjunctival pallor. Normocephalic, atraumatic. No pharyngeal erythema. No thyromegaly. CARDIOVASCULAR: S1 and S2 present. No murmurs, rubs, or gallops. PULMONARY: Chest is clear to auscultation, no wheezing or crackles. ABDOMEN: Soft, nontender, nondistended, normoactive bowel sounds. No palpable organomegaly. MUSCULOSKELETAL: No joint swelling or deformity. EXTREMITIES: No cyanosis, clubbing, or pedal edema. NEUROLOGICAL: Gross neurological examination did not reveal any focal deficits. SKIN: No rashes. no petechiae. - Labs CBC & Chem 7: 12/02/21 06:44 12/03/21 06:48 Labs: Abnormal Lab Results - Last 24 Hours (Table) 12/02/21 12/02/21 12/03/21 Range/Units 16:45 20:56 06:48 BUN 31 H (7-17) mg/dL Creatinine 1.16 H (0.52-1.04) mg/dL Glucose 105 H (74-99) mg/dL POC Glucose (mg/dL) 204 H 188 H (70-110) mg/dL Magnesium 2.5 H (1.6-2.3) mg/dL 12/03/21 Range/Units 11:29 BUN (7-17) mg/dL Creatinine (0.52-1.04) mg/dL Glucose (74-99) mg/dL POC Glucose (mg/dL) 203 H (70-110) mg/dL Magnesium (1.6-2.3) mg/dL Microbiology - Last 24 Hours (Table) 11/29/21 13:46 Blood Culture - Preliminary Blood No Growth after 72 hours 11/29/21 13:18 Blood Culture - Preliminary Blood No Growth after 72 hours Assessment and Plan Assessment: Acute hypoxic respiratory failure secondary to possible bilateral pneumonia currently on airvo oxygen support Acute hypoxic respiratory failure secondary to above New-onset atrial fibrillation with rapid ventricular rate, converted to normal sinus rhythm. Troponin elevation secondary to type 2 [place], managed medically Status post robotic partial right nephrectomy with pathology: Renal cell carcinoma with clear margin Acute renal injury improving Elevated liver enzymes Diabetes mellitus type 2 Hypertension currently blood pressure is 100 systolic Hyperlipidemia History coronary artery disease status post cardiac stents in the past Plan: Patient is being monitored in intensive care unit currently on Airvo 45/50 Continue empiric antibiotic coverage, currently on Zosyn and bronchodilators Hold amlodipine/benazepril combination Continue daily stool softener, miralax added today Currently on aspirin/plavix combination No further cardiac workup. Urologist of the case GI Prophylaxis:Pepcid DVT Prophylaxis: Lovenox Full Code
[2021-12-03] MEDS: HYDROcodone/APAP 5-325MG 1 EACH TAB PO PRN (21:11)
[2021-12-04] MEDS: PIPERACILLIN-TAZOBACTAM 3.375 GM in SODIUM CHLORIDE 0.9% 100 ML IVPB SCH ×3 (03:50→20:15)
[2021-12-04 05:56] LABS: Basophils # (A) 0.1 k/uL (0-0.2); Basophils % (A) 1 %; Eosinophils # (A) 0.4 k/uL (0-0.7); Eosinophils % (A) 4 %; HCT 34.2 % (34.0-46.0); HGB 10.9 gm/dL (11.4-16.0); Hypochromasia Slight; Lymphocytes % (A) 11 %; MCH 28.9 pg (25.0-35.0); MCV 90.3 fL (80.0-100.0); Mean Platelet Volume 7.4; Monocytes # (A) 0.5 k/uL (0-1.0); Monocytes % (A) 5 %; Neutrophils # (A) 7.6 k/uL (1.3-7.7); Neutrophils % (A) 78 %; Platelet Count 287 k/uL (150-450); RBC 3.79 m/uL (3.80-5.40); RDW 14.5 % (11.5-15.5); WBC 9.7 k/uL (3.8-10.6)
[2021-12-04 06:11] LABS: Calcium 8.6 mg/dL (8.4-10.2); Potassium 4.5 mmol/L (3.5-5.1)
[2021-12-04 06:33] LABS: Glucose,Whole Blood 128 mg/dL (70-110)
[2021-12-04] MEDS: INSULIN ASPART (NovoLOG) 100 UNIT/ML VIAL SQ SCH ×4 (06:35→20:14)
--- NOTE | 2021-12-04 07:46 | XR ---
EXAMINATION TYPE: XR chest 1V portable DATE OF EXAM: 12/04/2021 COMPARISON: Chest x-ray 12/03/2021 HISTORY: Abnormal chest x-ray TECHNIQUE: Single frontal view of the chest is obtained. FINDINGS: Findings are similar to prior exam. Left hemidiaphragm is obscured due to abnormal increas ed attenuation. Heart size is likely stable but also the appearance is obscured. Aorta is dense. Ther e is no evident pneumothorax. Mixed interstitial and airspace disease present within the lungs. There are overlying leads. IMPRESSION: Correlate for congestive heart failure, pneumonia not excluded. There may be pleural eff usion. Possible cardiomegaly.
[2021-12-04] MEDS: FAMOTIDINE 20 MG TAB PO SCH (08:25)
[2021-12-04] MEDS: ENOXAPARIN 40 MG/0.4 ML SYRINGE SQ SCH (08:25)
[2021-12-04] MEDS: ASPIRIN 81 MG PO SCH (08:25)
[2021-12-04] MEDS: CLOPIDOGREL 75 MG TAB PO SCH (08:25)
[2021-12-04] MEDS: METOPROLOL TARTRATE 25 MG TAB PO SCH ×2 (08:25→20:27)
[2021-12-04] MEDS: polyethylene glycoL 3350 17 GM POWD.PACK PO SCH (08:30)
[2021-12-04] MEDS: DOCUSATE 100 MG CAP PO SCH (08:30)
[2021-12-04] MEDS ORDERED: FUROSEMIDE 10 MG/ML 4 ML VIAL IV STA (08:35)
[2021-12-04] MEDS: IPRATROPIUM-ALBUTEROL 3 ML NEB INHALATION SCH ×4 (08:39→21:02)
--- NOTE | 2021-12-04 08:41 | P.PN ---
Subjective Progress Note Date: 12/04/21 This is a 76-year-old female patient of the transferred to the intensive care unit for increased shortness of breath. The patient was found to be in atrial fibrillation with rapid ventricular response and for that reason the patient got transferred to the ICU. The patient is currently postop day #4. The patient underwent a right partial nephrectomy. A CTA of the chest was done yesterday and the patient was found to have no evidence of any pulmonary embolism. Note that the patient was found to have a 3.5 cm right sided renal mass. Based on that, the patient was taken to the operating room for a nephrectomy. The patient is known to be having other comorbid conditions including hypertension, hyperlipidemia diabetes mellitus. The patient is also known to have CAD with previous MN. She has previous chronic catheterization and stenting.. This morning, the patient Got transferred to the intensive care unit the patient developed itchy fibrillation with rapid ventricular response. She is currently on the heart rate of 137, irregular with a blood pressure 113/75. She was placed on 100% nonrebreather facemask and her current pulse ox is 94%. The patient is also having some chest pain this morning. Morning chest pains. The patient is also having chest pain which is sternal, 6 out of 10 in severity. Cardiac enzymes are pending. EKG was done and it showed atrial fibrillation with a rapid ventricular response . I reviewed the EKG there is no significant ST segment changes. There is voltage criteria for LVH. There may be some inferior wall ST segment depression. The chest x-ray also showed some limited bibasilar pulmonary infiltrates along with some cardiomegaly. Lung volumes are essentially small. The patient is currently postoperative day #4. IV fluids are currently at KVO. The patient came in to the ICU and she was given amiodarone bolus initially at a dose of 150 mg of following that she was started on a maintenance of 1 mg/m. I also reviewed the CTA of the chest that was done on 11/27/2021. As mentioned, there is evidence of a pulmonary embolism. There is significant atelectatic changes in the lung bases bilaterally. No reported aspiration. She has an incentive spirometer at the bedside. In terms of her blood work, the patient's white cell count that is a 50 point the XII.5 and a platelet count of 204. Electrolytes from yesterday were all within normal limits with the B 20/20 creatinine 1.09. Sodium is 136. Cardiac enzymes are still pending. The patient is diabetic and she is on a combination of antihypertensive diabetic medication. She is on Dilaudid for pain control. She is also on IV Zosyn that was started 11/26/21 as an empiric antibiotic coverage.the patient had an echocardiogram on 05/05/2021 that showed segmental wall motion abnormalities involving the anterior wall, inferior wall of the septal wall. Ejection fraction was around 45-50%. The LV size was normal. No significant valvular abnormalities were noted. No significant pulmonary hypertension. Her previous cardiac catheterization was done in April 2021. She has undergone stenting to the LAD and subsequently to the circumflex. As such, the patient has stool coronary stents and the patient was receiving dual antiplatelet treatment on outpatient basis. On 11/29/2021, the patient continues to have shortness of breath and she is still struggling with her breathing and she is quite tachypneic with respiratory rate ranging between 30 and 40 breasts a minute. She remains on a BiPAP at a pressure of 12 was 6 cm of water FiO2 of 80%. She was transitioned from 100% nonrebreather with a high flow and later on her BiPAP. Chest x-ray showing infiltration of the lung base bilaterally. The patient was given a total of 2 doses of Lasix yesterday and her creatinine is currently up to 1.5. She did convert into normal sinus rhythm. She is normotensive for now. Echocardiogram from today is still pending. Meanwhile, her fluid balance is -560 mL over the past 24 hours. In terms of her labs, the whites of +0.3 with a hemoglobin 11.5 and a platelet count of 211. Sodium is 136, potassium of 4.2, BNP is a 30 with creatinine of 1.5. LFTs are still slightly abnormal. Abdomen is distended. Surgical 1 sets of dry clean and uninfected troponin peaked at 1.4. IV heparin was contemplated. Nevertheless, I had a discussion with urology who opted not t o put the patient to coagulation due to concerns of bleeding within the kidney surgical sites. The patient remains on IV Zosyn for now as an empiric antibiotic coverage. She is also on metoprolol 25 mg by mouth twice a day. 2021, patient is being seen postop day #6 following her partial nephrectomy on the right. She developed an acute non-ST segment elevation myocardial infarction and bilateral pneumonia and this controlled the patient to an acute hypoxic respiratory failure. The patient was on a BiPAP and currently she is on high flow oxygen at 60 L in a fight over 85%. I performed a CAT scan of the chest and abdomen yesterday and the CAT scan of the chest showed extensive lower lobe consolidation bilaterally consistent with pneumonia. CAT scan of the abdomen showed postsurgical changes along the posterior aspect of the right kidney. There was extensive adjacent edema with increased density up to 7 cm in size by 3.1 cm in size. Some underlying surgical material is present. There is extensive edema and stranding fluid extending down to the right retroperitoneum in the right perinephric space. Suspect some hemorrhagic material along the surgical bed. In summary, the findings were consistent with perinephric edema and some area of suspected hemorrhagic stranding. There was another area of 2.2 cm oval often she'll nodule lateral to the right perinephric space and this was also suspected to be a focal area of hematoma. Based on all this, no antiplatelet agents or IV heparin was provided. The patient remains hemodynamically stable. Echocardiogram was ordered. The patient was kept on IV Zosyn. 4 calcitonin level was mildly elevated. White cell count of 15.4 with a hemoglobin of 11.1. Creatinine is also stable at 1.58 with a BUN of 34. LFTs are abnormal with an AST of 13 the bilirubin is also normal. Bilirubin is normal. Surgical notes is also normal. No abdominal distention. The patient is passing factors at this point in time. Bilirubin is normal bilirubin is normal, AST is 143, ALt of 103 alkaline phosphatase of 193. The patient is passing flatus. The patient has clear surgical wound site. 12/01 2021, the patient remains on high flow oxygen, 50 L, FiO2 of 60%. Oxygenation remains limited to the pulse ox of 93-94%. No chest x-rays available from today. She is using the incentive spirometer and she is falling approximately 750. She is doing deep breathing. She continues to have crackles in the lung bases bilaterally. No chest pain. Cardiac rhythm is sinus. Surgical incisions are clean and intact. There is no evidence of any bleed. Today's blood work is still pending. Of interest will be a follow-up creatinine level. Multivessel troponin peaked at 41. Cardiology is on the case. Anticoagulation was avoided. I think we got the okay from urology for initiation of the platelet agents and nontender the patient has a previous coronary stents, would suggest restarting the patient on aspirin and Plavix. The patient remains on IV Zosyn. Tolerating diet. No nausea. No vomiting. She is able to set up on a chair. Producing adequate amount of urine output. IV fluids are KVO. 2021, I'm seeing the patient for a follow-up. She is fully awake. No respiratory distress. she is sitting up on a chair. She is still hypoxic and she is requiring// also high flow oxygen with 50 L and FiO2 of 60%. pulse ox is currently ranging between 93-94%. Chest x-ray shows persistent consolidation of the left lower lobe on examination she continues to have crackles in lung bases bilaterally. she remains on IV Zosyn. Pro-calcitonin level is down to 0.4. the rest of the labs include a white cell count of 9.8 with a hemoglobin of 10.2. Creatinine is stable at 1.2 with a BUN of 34 and a sodium level is at 136. her surgical without striking and intact. She is afebrile. she is using bronchodilators. she warn her BiPAP overnight at a pressure of 12/6 and this morning she was transitioned back to high flow oxygen. no altered mentation. No chest pain. She is passing flatus. tolerating diet. No bowel movement activity. Incentive spirometer is up-to-date thousand. 12/03/2021, patient remains on high flow oxygen. This morning, the patient is on 45 L with an FiO2 of 50%. Chest x-ray from this morning shows stable bibasilar pulmonary infiltrates along with some basilar density involving the left hemidiaphragm. No evidence of any pneumothorax. The patient is sitting up on a chair and she continues to use incentive spirometer. Her current pulse ox is around 96%. Labs are still pending for now. She is afebrile and she is hemodynamically stable. She continues to be on IV Zosyn. She is on Lovenox 30 mg subcu for prophylaxis. She is on DuoNeb treatments on the clock. She is also on a combination of aspirin and Plavix. Cardiac rhythm remained sinus. Tolerating diet. She is on a sliding scale insulin coverage for blood sugar control. She continues to wear the BiPAP overnight at a pressure of 12/6 with residual 50%. This morning, the patient remains on high flow oxygen with a total of 40 L and FiO2 of 55%. Current pulse ox is 92%. Chest x-rays this wound by the pulmonary infiltrates more so in the lower lobes and some probable effusion in the left lung base. Recovery was very slow. She feels well however oxidation still impaired. She is on IV Zosyn. She remains on Lovenox for prophylaxis 30 mg subcu on a daily basis. Overnight, she is also using the BiPAP. Creatinine is at 1.1 with a BUN of 23 and episode was at 139. The white cell count is at 9.7. The patient is in normal sinus rhythm. The patient had an echocardiogram that showed mild impairment of LV function with an ejection fraction of 45%. She has moderate degree of aortic stenosis and mild regurgitation. Otherwise, no other significant events. Tolerating her diet. Having regular bowel movements. Using the incentive spirometer. The repeat COVID 19 testing came back negative. Objective - Vital Signs Vital signs: Vital Signs Temp 97.8 F 12/04/21 08:00 Pulse 73 12/04/21 08:00 Resp 22 12/04/21 08:00 BP 164/74 12/04/21 08:00 Pulse Ox 92 L 12/04/21 08:00 FiO2 55 12/04/21 08:00 Intake & Output 12/03/21 12/04/21 12/04/21 18:59 06:59 18:59 Intake Total 160 215 275 Output Total 1175 Balance 160 -960 275 Weight 76 kg Intake: IV 160 215 35 0.9 60 40 10 Piperacillin-Tazobactam 3 100 175 25 .375 gm In Sodium Chloride 0.9% 100 ml @ 25 mls/hr IVPB Q8H [facility] Rx#: [id number] Oral 240 Output: Urine 1175 Other: Voiding Method Bedside Commode Bedside Commode # Voids 1 # Bowel Movements 1 1 - Exam General appearance the patient is in mild to moderate degree of respiratory distress currently On airvo 40 liters FIO2 55 Head exam was generally normal. There was no scleral icterus or corneal arcus. Mucous membranes were moist. Neck was supple and without jugular venous distension, thyromegaly, or carotid bruits. Carotids were easily palpable bilaterally. There was no adenopathy. Lungs sounds are diminished in the patient's w has crackles within the lower lung goodrich bilaterally Heart sounds are regular, , positive significant murmurs could be appreciated. Abdomen is soft. Bowel sounds are sluggish. Surgical wounds are dry and the patient has multiple surgical sides related to recent nephrectomy. Minimal direct tenderness. No rebound tenderness. No guarding. Examination of the extremities revealed easily palpable radial, femoral and pedal pulses. There was no cyanosis, clubbing or edema. Examination of the skin revealed no evidence of significant rashes, suspicious appearing nevi or other concerning lesions. Neurologically, the patient is awake and alert and the patient does not have any focal neurological deficit. Cranial nerves are essentially intact. - Labs CBC & Chem 7: 12/04/21 05:29 12/04/21 05:29 Labs: Abnormal Lab Results - Last 24 Hours (Table) 12/03/21 12/03/21 12/03/21 Range/Units 11:29 16:18 20:19 RBC (3.80-5.40) m/uL Hgb (11.4-16.0) gm/dL BUN (7-17) mg/dL Creatinine (0.52-1.04) mg/dL Glucose (74-99) mg/dL POC Glucose (mg/dL) 203 H 162 H 228 H (70-110) mg/dL 12/04/21 12/04/21 12/04/21 Range/Units 05:29 05:29 06:29 RBC 3.79 L (3.80-5.40) m/uL Hgb 10.9 L (11.4-16.0) gm/dL BUN 23 H (7-17) mg/dL Creatinine 1.16 H (0.52-1.04) mg/dL Glucose 123 H (74-99) mg/dL POC Glucose (mg/dL) 128 H (70-110) mg/dL Microbiology - Last 24 Hours (Table) 11/29/21 13:46 Blood Culture - Preliminary Blood No Growth after 96 hours 11/29/21 13:18 Blood Culture - Preliminary Blood No Growth after 96 hours Assessment and Plan Plan: Acute hypoxic respiratory failure currently on high flow oxygen with an FiO2 of 55% and the flow 40 L. the chest x-ray findings remain essentially unchanged. There is consolidation and atelectasis in addition to small effusion of the left lung base. The patient continues to require high flow oxygen. Chest x-ray still showing persistent consolidation lung base. pro calcitonin has declined and the patient is on IV Zosyn and using incentive spirometer. she is afebrile and hemodynamically stable. The patient continues to have crackles in the lung bases bilaterally. She is doing slow but ongoing progress. Chest x-ray remains essentially unchanged. Her proBNP level was 2790. Fall calcitonin level is down to 0.41. New onset atrial fibrillation with rapid ventricular response, converted into normal sinus rhythm Acute non-ST segment elevation myocardial infarction. The patient had ST segment depression on yesterday's EKG. No IV heparin was utilized due to urology's concern of bleeding postop. The patient's family chest pain and a troponin peak at 40. The patient remains free of any chest pain. Cardiology is on the case. We will going to restart aspirin and Plavix. Chest pain with an underlying history of coronary artery disease, rule out underlying angina versus chest pain related to the tachycardia induced by itchy fibrillation. EKG showing some ST segment depressions along the inferior leads. Currently back into normal sinus rhythm and the patient is currently free of any chest pain History of nephrectomy, right sided for a renal mass and the patient is postoperative day # 10. This was done robotically and the patient has the drain taken out Perinephric edema and areas of suspected hemorrhage in the perinephric area. Hemoglobin is stable and the patient is currently on no anticoagulants and nontender guidance will be used based on urology recommendation. history of coronary artery disease with previous stenting of the circumflex and lad Moderate severe aortic stenosis diabetes mellitus hypertension hyperlipidemia macular degeneration CAMILO , recovered plan Keep the patient on airvo, wean down FiO2 and keep the floor at 40 L , dropped FiO2 down to 50% IV fluids at KVO Give the patient goes on Lasix 40 mg IV . The patient developed an acute kidney injury. Her renal function stabilized and will try to gradually diurese the patient. Start the patient on Solu-Medrol 40 mg every 6 hours for any postinfectious BOOP /ARDS picture metoprolol 25 mg twice a day No anticoagulants for now Aggressive use of incentive spirometer The patient on Lovenox 40 mg for DVT prophylaxis and a combination of aspirin and Plavix as the patient does have underlying coronary stent Continue IV Zosyn and repeat a pro-calcitonin level from yesterday was at 0.4 Echocardiogram was noted and the patient has a ejection fraction of 45%, normal RV, moderate increase of the septal wall thickening, moderate degree of aortic stenosis with a peak greater than 36 and a mean gradient of 21. No evidence of any pericardial effusion. Patient is passing flatness and BM patient is able to sit up on a chair. sliding scale insulin coverage We'll continue to follow
[2021-12-04] MEDS: methylPREDNISolone SOD SUCCI 40 MG/ML 1 ML VIAL IV SCH ×3 (08:43→18:11)
--- NOTE | 2021-12-04 10:09 | P.PN ---
Subjective This is a 76 year old female, post operative day #4 right partial nephrectomy for known history of right renal mass. Patients hospital stay complicated by shortness of breath and hypoxia, with chest pain. A team was called this morning and patient has been transferred to intensive care unit for close monitoring. Found to be in atrial fibrillation with rapid ventricular rate and received amiodarone bolus and continues on amiodarone infusion, pending cardiology consultation. Patient also received a dose of IV lasix 40 mg today. D-Dimer elevated at 0.96, chest CTA is negative for pulmonary embolism. Chest xray showing patchy bibasilar infiltrates. Continues on bronchodilators, empiric antibiotics with IV zosyn. Echocardiogram completed in April of this year shows an EF of 45-50% with LV wall hypokinesis, mild MR, mild TR. Labs reviewed today showing a white count of 13.2, sodium 136, beyond 20, creatinine 1.25. He does have troponin elevation at 1.400. Liver enzymes are also elevated, proBNP 662. Covid negative. He remains afebrile, heart rate 140 8H fibrillation, blood pressure 101/73, patient is on a non rebreather at 15 L. Patient is on a combination of amlodipine/benazepril daily which we will hold at this time secondary to low normal BPs. 11/29/2021 Patient is evaluated today in intensive care unit. Converted to normal sinus rhythm yesterday afternoon and amiodarone has been discontinued. Urology recommending for patient to hold anticoagulation currently and eliquis has been stopped at this time. Troponins have been trended and increased up to 41.000. Cardiology following patient. Echocardiogram has been ordered. Patient had chest xray this morning showing basilar pneumonia with findings similar to previous exam with associated effusion. Follow up abdomen chest CT showing possible perinephric hemorrhage/hematoma. with possible additional areas of strandy hemorrhage in the right pericaval region. Also, possible small focal hematoma vs. metastatic deposit in lateral right perinephric space. There is possible infectious or aspiration pneumonitis with trace right pleural effusion. No pericardial effusion. There is coronary artery disease evident. Patient continues on BiPAP with FiO2 of 88%, afebrile, maintaining normal sinus rhythm heart rate 82, blood pressure 106/59. Continues on IV zosyn. Labs reviewed showing BUN 30, creatinine 1.53, AST 204, ALT 122, alk phos 152 which have increased. 11/30/2021 Patient continues to be monitored closely in intensive care unit. She has been transitioned from BiPAP onto high flow airvo oxygen support with 55/80. Had low grade fever 99.8 around midnight. Today she is sitting up in chair, reports having cough with occasional sputum production. Reports breathing better, no chest pain. Has not had BM, she does not want any additional stool softeners besides colace. Chest xray today showing possible developing pulmonary vascular congestion, with developing patchy edema/infiltrate right lower lung and consolidation left base. Continues on IV zosyn. Procalcitonin level today 0.48. Creatinine today 1.58. Has been started on baby aspirin. Urology recommending to hold off on anticoagulation due to risk for bleeding. She is postoperative day #6 right partial nephrectomy. 12/01/2021 Patient is evaluated in the intensive care unit. Patient is postoperative day #7 right partial nephrectomy. She has been resumed on plavix and also started on lovenox today. Continues on airvo oxygen support 50/50 with oxygen saturations of 93%. Afebrile overnight. Blood cultures are currently negative. Continues on IV antibiotics with IV zosyn empirically. She has not had a BM postoperatively does have increased bowel sounds today. She is agreeable to miralax in addition to colace. Labs today showing sodium level of 135, potassium 4.1, BUN 35, creatinine 1.33, glucose in the 100s. Procalcitonin level today 0.41. proBNP was checked at 2790. Echocardiogram showing EF 45% with moderate LVH, mild MR, Moderate aortic stenosis. 12/02/2021 Patient status post right nephrectomy for kidney mass with pathology showing renal cell carcinoma with clear margins, patient does not have a Porter catheter and sheaths. Without problem and urologist already followed up with the patient. Patient also with new onset A. fib and her rate is controlled, no anticoagulation for her recent surgery. She is on prophylactic Lovenox Also with evidence of bilateral pneumonia, left more than right lower lobe. Currently covered with Zosyn. FiO2 is 50% with global 45 L per minute and gradually improving. 12/03/2021 Patient looks similar to yesterday sitting in chair with air for nasal cannula with a similar to yesterday with flow rate 40-year-old FiO2 50% patient is still tachypneic and chest x-ray showed evidence of CHF Heart A. fib heart rate looks controlled. With no chest pain However patient mainly has extensive consolidation of lung secondary to infection and is currently on Zosyn. Also she is on aspirin and Plavix and Lovenox 12/05/2019 Patient breathing pattern with same as yesterday. She still on flow rate of 40 L per minute and FiO2 of 50% over the last 3 days with no much improvement. She is currently on Zosyn for left more right lower lobe pneumonia, However there is some evidence of fluid overload and she visits one-time dose of Lasix 40 mg also IV Solu-Medrol of 40 mg every 6 or started today. Patient is also on aspirin and Plavix and Lovenox lactic dose. Echocardiogram showed ejection fraction of 45% with moderate aortic stenosis and LVH. Creatinine 1.1 Objective - Vital Signs Vital signs: Vital Signs Temp 97.8 F 12/04/21 08:00 Pulse 68 12/04/21 09:00 Resp 24 12/04/21 09:00 BP 155/67 12/04/21 09:00 Pulse Ox 90 L 12/04/21 09:00 FiO2 50 12/04/21 09:00 Intake & Output 12/03/21 12/04/21 12/04/21 18:59 06:59 18:59 Intake Total 160 215 285 Output Total 1175 Balance 160 -960 285 Weight 76 kg Intake: IV 160 215 45 0.9 60 40 20 Piperacillin-Tazobactam 3 100 175 25 .375 gm In Sodium Chloride 0.9% 100 ml @ 25 mls/hr IVPB Q[facility]H [facility] Rx#: [id number] Oral 240 Output: Urine 1175 Other: Voiding Method Bedside Commode Bedside Commode Bedside Commode # Voids 1 # Bowel Movements 1 1 - Exam GENERAL: The patient is alert and oriented x3, not in any acute distress. Well developed, well nourished. HEENT: Pupils are round and equally reacting to light. EOMI. No scleral icterus. No conjunctival pallor. Normocephalic, atraumatic. No pharyngeal erythema. No thyromegaly. CARDIOVASCULAR: S1 and S2 present. No murmurs, rubs, or gallops. PULMONARY: Chest is clear to auscultation, no wheezing or crackles. ABDOMEN: Soft, nontender, nondistended, normoactive bowel sounds. No palpable organomegaly. MUSCULOSKELETAL: No joint swelling or deformity. EXTREMITIES: No cyanosis, clubbing, or pedal edema. NEUROLOGICAL: Gross neurological examination did not reveal any focal deficits. SKIN: No rashes. no petechiae. - Labs CBC & Chem 7: 12/04/21 05:29 12/04/21 05:29 Labs: Abnormal Lab Results - Last 24 Hours (Table) 12/03/21 12/03/21 12/03/21 Range/Units 11:29 16:18 20:19 RBC (3.80-5.40) m/uL Hgb (11.4-16.0) gm/dL BUN (7-17) mg/dL Creatinine (0.52-1.04) mg/dL Glucose (74-99) mg/dL POC Glucose (mg/dL) 203 H 162 H 228 H (70-110) mg/dL 12/04/21 12/04/21 12/04/21 Range/Units 05:29 05:29 06:29 RBC 3.79 L (3.80-5.40) m/uL Hgb 10.9 L (11.4-16.0) gm/dL BUN 23 H (7-17) mg/dL Creatinine 1.16 H (0.52-1.04) mg/dL Glucose 123 H (74-99) mg/dL POC Glucose (mg/dL) 128 H (70-110) mg/dL Microbiology - Last 24 Hours (Table) 11/29/21 13:46 Blood Culture - Preliminary Blood No Growth after 96 hours 11/29/21 13:18 Blood Culture - Preliminary Blood No Growth after 96 hours Assessment and Plan Assessment: Acute hypoxic respiratory failure secondary to possible bilateral pneumonia currently on airvo oxygen support Acute hypoxic respiratory failure secondary to above New-onset atrial fibrillation with rapid ventricular rate, converted to normal sinus rhythm. Troponin elevation secondary to type 2 KS, managed medically Status post robotic partial right nephrectomy with pathology: Renal cell carcinoma with clear margin Acute renal injury improving Elevated liver enzymes Diabetes mellitus type 2 Hypertension currently blood pressure is 100 systolic Hyperlipidemia History coronary artery disease status post cardiac stents in the past Plan: Patient is being monitored in intensive care unit currently on Airvo 45/50 Continue empiric antibiotic coverage, currently on Zosyn and bronchodilators Systemic steroids Hold amlodipine/benazepril combination Continue daily stool softener, miralax added today Currently on aspirin/plavix combination No further cardiac workup. Urologist of the case GI Prophylaxis:Pepcid DVT Prophylaxis: Lovenox Full Code
[2021-12-04 11:33] LABS: Glucose,Whole Blood 183 mg/dL (70-110)
[2021-12-04 16:14] LABS: Glucose,Whole Blood 244 mg/dL (70-110)
--- NOTE | 2021-12-04 19:02 | P.PN ---
Subjective Progress Note Date: 12/04/21 The patient continues in the icu post robotic assisted partial nephrectomy. SHe is stable urologically. SHe continues to recouperate from post op pneumonia and afib. Objective - Vital Signs Vital signs: Vital Signs Temp 98.2 F 12/04/21 16:00 Pulse 64 12/04/21 18:00 Resp 26 H 12/04/21 18:00 BP 157/72 12/04/21 18:00 Pulse Ox 92 L 12/04/21 18:00 FiO2 50 12/04/21 18:00 Intake & Output 12/04/21 12/04/21 12/05/21 06:59 18:59 06:59 Intake Total 215 955 Output Total 1175 600 Balance -960 355 Weight 76 kg Intake: IV 215 135 0.9 40 110 Piperacillin-Tazobactam 3 175 25 .375 gm In Sodium Chloride 0.9% 100 ml @ 25 mls/hr IVPB Q8H [facility] Rx#: [id number] Intake, IV Titration 100 Amount Piperacillin-Tazobactam 3 100 .375 gm In Sodium Chloride 0.9% 100 ml @ 25 mls/hr IVPB Q8H [facility] Rx#: [id number] Oral 720 Output: Urine 1175 600 Other: Voiding Method Bedside Commode External Catheter # Voids 1 # Bowel Movements 1 - Labs CBC & Chem 7: 12/04/21 05:29 12/04/21 05:29 Labs: Abnormal Lab Results - Last 24 Hours (Table) 12/03/21 12/04/21 12/04/21 Range/Units 20:19 05:29 05:29 RBC 3.79 L (3.80-5.40) m/uL Hgb 10.9 L (11.4-16.0) gm/dL BUN 23 H (7-17) mg/dL Creatinine 1.16 H (0.52-1.04) mg/dL Glucose 123 H (74-99) mg/dL POC Glucose (mg/dL) 228 H (70-110) mg/dL 12/04/21 12/04/21 12/04/21 Range/Units 06:29 11:31 16:12 RBC (3.80-5.40) m/uL Hgb (11.4-16.0) gm/dL BUN (7-17) mg/dL Creatinine (0.52-1.04) mg/dL Glucose (74-99) mg/dL POC Glucose (mg/dL) 128 H 183 H 244 H (70-110) mg/dL Microbiology - Last 24 Hours (Table) 11/29/21 13:46 Blood Culture - Preliminary Blood No Growth after 120 hours 11/29/21 13:18 Blood Culture - Preliminary Blood No Growth after 120 hours 12/03/21 23:00 Sputum Culture - Preliminary Sputum
[2021-12-04 20:08] LABS: Glucose,Whole Blood 320 mg/dL (70-110)
[2021-12-04] MEDS: ATORVASTATIN 80 MG TAB PO SCH (20:14)
[2021-12-05] MEDS: methylPREDNISolone SOD SUCCI 40 MG/ML 1 ML VIAL IV SCH ×4 (00:05→17:53)
[2021-12-05] MEDS: PIPERACILLIN-TAZOBACTAM 3.375 GM in SODIUM CHLORIDE 0.9% 100 ML IVPB SCH ×3 (03:22→20:32)
[2021-12-05 06:42] LABS: Glucose,Whole Blood 283 mg/dL (70-110)
[2021-12-05] MEDS: INSULIN ASPART (NovoLOG) 100 UNIT/ML VIAL SQ SCH ×6 (06:52→20:31)
--- NOTE | 2021-12-05 07:16 | XR ---
EXAMINATION TYPE: XR chest 1V portable DATE OF EXAM: 12/05/2021 5:42 AM COMPARISON: Chest radiographs from 12/04/2021. TECHNIQUE: XR chest 1V portable Frontal view of the chest. CLINICAL INDICATION:Female, 76 years old with history of assess lungs; FINDINGS: Lungs/Pleura: No pneumothorax. [id number] left pleural effusion. Mild pulmonary vascular conge stion. Bibasilar patchy airspace opacities. Heart/mediastinum: Cardiomediastinal silhouette is enlarged and stable. Musculoskeletal: No acute osseous pathology. IMPRESSION: Similar cardiomegaly with small to moderate left pleural effusion and pulmonary vascular congestion s uggests congestive heart failure. Superimposed infectious process is not excluded.
[2021-12-05] MEDS: IPRATROPIUM-ALBUTEROL 3 ML NEB INHALATION SCH ×4 (07:31→20:55)
[2021-12-05] MEDS ORDERED: FUROSEMIDE 10 MG/ML 4 ML VIAL IV STA (08:33)
[2021-12-05] MEDS: ENOXAPARIN 40 MG/0.4 ML SYRINGE SQ SCH (09:50)
[2021-12-05] MEDS: DOCUSATE 100 MG CAP PO SCH (09:51)
[2021-12-05] MEDS: FAMOTIDINE 20 MG TAB PO SCH (09:51)
[2021-12-05] MEDS: CLOPIDOGREL 75 MG TAB PO SCH (09:51)
[2021-12-05] MEDS: polyethylene glycoL 3350 17 GM POWD.PACK PO SCH (09:53)
[2021-12-05] MEDS: METOPROLOL TARTRATE 25 MG TAB PO SCH ×2 (09:55→20:30)
[2021-12-05] MEDS: ASPIRIN 81 MG PO SCH (10:03)
--- NOTE | 2021-12-05 10:50 | P.PN ---
Subjective Progress Note Date: 12/05/21 Principal diagnosis: Acute hypoxic respiratory failure secondary to postoperative atelectasis and postoperative pleural effusion and possible acute systolic congestive heart failure. This is a 76-year-old female patient of the transferred to the intensive care unit for increased shortness of breath. The patient was found to be in atrial fibrillation with rapid ventricular response and for that reason the patient got transferred to the ICU. The patient is currently postop day #4. The patient underwent a right partial nephrectomy. A CTA of the chest was done yesterday an d the patient was found to have no evidence of any pulmonary embolism. Note that the patient was found to have a 3.5 cm right sided renal mass. Based on that, the patient was taken to the operating room for a nephrectomy. The patient is known to be having other comorbid conditions including hypertension, hyperlipidemia diabetes mellitus. The patient is also known to have CAD with previous ME. She has previous chronic catheterization and stenting.. This morning, the patient Got transferred to the intensive care unit the patient developed itchy fibrillation with rapid ventricular response. She is currently on the heart rate of 137, irregular with a blood pressure 113/75. She was placed on 100% nonrebreather facemask and her current pulse ox is 94%. The patient is also having some chest pain this morning. Morning chest pains. The patient is also having chest pain which is sternal, 6 out of 10 in severity. Cardiac enzymes are pending. EKG was done and it showed atrial fibrillation with a rapid ventricular response . I reviewed the EKG there is no significant ST segment changes. There is voltage criteria for LVH. There may be some inferior wall ST segment depression. The chest x-ray also showed some limited bibasilar pulmonary infiltrates along with some cardiomegaly. Lung volumes are essentially small. The patient is currently postoperative day #4. IV fluids are currently at KVO. The patient came in to the ICU and she was given amiodarone bolus initially at a dose of 150 mg of following that she was started on a maintenance of 1 mg/m. I also reviewed the CTA of the chest that was done on 11/27/2021. As mentioned, there is evidence of a pulmonary embolism. There is significant atelectatic changes in the lung bases bilaterally. No reported aspiration. She has an incentive spirometer at the bedside. In terms of her blood work, the patient's white cell count that is a 50 point the XII.5 and a platelet count of 204. Electrolytes from yesterday were all within normal limits with the B creatinine 1.09. Sodium is 136. Cardiac enzymes are st ill pending. The patient is diabetic and she is on a combination of antihypertensive diabetic medication. She is on Dilaudid for pain control. She is also on IV Zosyn that was started 11/26/21 as an empiric antibiotic coverage.the patient had an echocardiogram on 05/05/2021 that showed segmental w all motion abnormalities involving the anterior wall, inferior wall of the septal wall. Ejection fraction was around 45-50%. The LV size was normal. No significant valvular abnormalities were noted. No significant pulmonary hypertension. Her previous cardiac catheterization was done in April 2021. She has undergone stenting to the LAD and subsequently to the circumflex. As such, the patient has stool coronary stents and the patient was receiving dual antiplatelet treatment on outpatient basis. Reevaluated today on 12/05/21, patient remains in the ICU, remains on airvo at 50% FiO2 and 40 L flow. Patient continues to have abnormal chest x-ray showing bilateral pleural effusions left more so than right, possible diastolic congestive heart failure, and significant atelectasis of the left base. Overnight, the patient has been on BiPAP, she is improving but very slowly. Continue his incentive spirometry, and COVID-19 testing came back negative ultrasound of the chest today showed pleural effusion but not large enough to consider thoracentesis safely. WBC count is 9.7 hemoglobin is 10.9 lites are normal renal profile showed a BUN of 23 creatinine 1.16, unchanged compared to the last few days. Chest x-ray continues to show cardiomegaly, small pleural effusions, the chest x-ray itself is consistent with congestive heart failure, superimposed infection is not entirely excluded. More Lasix was given today. Objective - Vital Signs Vital signs: Vital Signs Temp 97.8 F 12/05/21 04:00 Pulse 62 12/05/21 09:00 Resp 27 H 12/05/21 09:00 BP 159/72 12/05/21 09:00 Pulse Ox 93 L 12/05/21 09:00 FiO2 50 12/05/21 07:33 Intake & Output 12/04/21 12/05/21 12/05/21 18:59 06:59 18:59 Intake Total 955 225 25 Output Total 600 400 100 Balance 355 -175 -75 Weight 74.3 kg Intake: IV 135 50 0.9 110 50 Piperacillin-Tazobactam 3 25 .375 gm In Sodium Chloride 0.9% 100 ml @ 25 mls/hr IVPB Q8H [facility] Rx#: [id number] Intake, IV Titration 100 175 25 Amount Piperacillin-Tazobactam 3 100 175 25 .375 gm In Sodium Chloride 0.9% 100 ml @ 25 mls/hr IVPB Q8H [facility] Rx#: [id number] Oral 720 Output: Urine 600 400 100 Other: Voiding Method External Catheter External Catheter # Voids 1 # Bowel Movements 1 - Exam Physical Exam: Revealed 76-year-old female on airvo, not in distress. Head: Atraumatic normocephalic HEENT:[Neck is supple.] [No neck masses.] [No thyromegaly.] [No JVD.] Chest: [Diminished breath sounds bilaterally more so at the left base, fine crackles at the left base. Cardiac Exam: [Normal S1 and S2, no S3 gallop, 2/6 systolic murmur thought the precordium. Abdomen: [Soft, nontender, no megaly, no rebound, no guarding, normal bowel sounds.] Extremities: [No clubbing, 1+ bipedal edema, no cyanosis.] Neurological Exam: [No focal neurologic deficit.] Alert oriented 3. Psychiatric: Normal mood affect and normal mental status examination. Skin: No rashes. Musculoskeletal: No deformities and no limitation in range of motion - Labs CBC & Chem 7: 12/04/21 05:29 12/04/21 05:29 Labs: Abnormal Lab Results - Last 24 Hours (Table) 12/04/21 12/04/21 12/04/21 Range/Units 11:31 16:12 20:06 POC Glucose (mg/dL) 183 H 244 H 320 H (70-110) mg/dL 12/05/21 Range/Units 06:39 POC Glucose (mg/dL) 283 H (70-110) mg/dL Microbiology - Last 24 Hours (Table) 12/03/21 23:00 Gram Stain - Preliminary Sputum Sputum Culture - Preliminary 11/29/21 13:46 Blood Culture - Preliminary Blood No Growth after 120 hours 11/29/21 13:18 Blood Culture - Preliminary Blood No Growth after 120 hours Assessment and Plan Assessment: Impression: Acute hypoxic respiratory failure, multifactorial, mostly related to postoperative atelectasis and consolidation, left pleural effusion and left lower lobe atelectasis, suspect acute systolic congestive heart failure and ejection fraction of 45% Moderate aortic stenosis New-onset atrial fibrillation Acute non-ST elevation myocardial infarction History of nephrectomy/renal mass postoperative day #11 Perinephric edema and suspected hemorrhage in the perinephric area History of underlying coronary artery disease and previous stent of circumflex and LAD Type 2 diabetes Benign essential hypertension Acute kidney injury Recommendation: Continue oxygen via airvo and titrate accordingly Continue incentive spirometry Continue Lasix 40 mg IV push daily monitor renal status closely Review of the ultrasound of the chest, the fluid is not large enough to consider thoracentesis at this point. Hence we'll treat pleural effusion with diuretics Continue Solu-Medrol, for presumptive acute lung injury although that is felt to be less likely Continue Lovenox for DVT prophylaxis patient is also on aspirin and Plavix for underlying coronary artery disease and previous stent Continue Zosyn Continue sliding scale insulin Ambulate to a chair. We will continue to follow and monitor in the ICU. Prognosis remains guarded. Time with Patient: Less than 30
--- NOTE | 2021-12-05 10:59 | US ---
EXAMINATION TYPE: US chest DATE OF EXAM: 12/05/2021 COMPARISON: NONE CLINICAL HISTORY: Markings for thoracentesis by pulmonary staff. Left pleural effusion TECHNIQUE: Targeted ultrasound of the posterior lower bilateral hemithoraces EXAM MEASUREMENTS: Left Pleural Effusion pocket size: 6.7 cm Left skin surface to fluid distance: 6.1 cm Left side marked for possible thoracentesis outside the dept. Pulmonologists are able to review the images in the patient?s EMR. IMPRESSIONS: Small left pleural effusion.
[2021-12-05] MEDS ORDERED: INSULIN DETEMIR (LEVEMIR) 100 UNIT/ML SYR SQ SCH (11:00)
[2021-12-05 12:02] LABS: Glucose,Whole Blood 323 mg/dL (70-110)
--- NOTE | 2021-12-05 12:37 | P.PN ---
Subjective Progress Note Date: 12/05/21 Principal diagnosis: Right renal mass This is an 76-year-old female with history of a 3.5 cm right sided renal mass. She is 11 days post-op from a right robotic partial nephrectomy with extensive lysis of adhesions. Postoperative complications included A. fib with RVR and pneumonia. She was started on an amiodarone drip, where she spontaneously converted back to sinus rhythm. She is still recovering from pneumonia. She currently is on Airvo at 40L, 50% FIO2. Laprocopic sites to abdomen clean and dry. She is afebrile. She is tolerating a regular diet. Denies nausea or vom iting. She has an external catheter with clear, yellow urine. Pain controlled with current regimen. Encourage ambulation a tolerated. She is stable urologically. Pathology report discussed with patient. Objective - Vital Signs Vital signs: Vital Signs Temp 97.8 F 12/05/21 04:00 Pulse 53 L 12/05/21 12:00 Resp 16 12/05/21 12:00 BP 166/75 12/05/21 12:00 Pulse Ox 94 L 12/05/21 12:00 FiO2 50 12/05/21 12:00 Intake & Output 12/04/21 12/05/21 12/05/21 18:59 06:59 18:59 Intake Total 955 225 55 Output Total 600 400 600 Balance 759 -392 -125 Weight 74.3 kg Intake: IV 135 50 30 0.9 110 50 30 Piperacillin-Tazobactam 3 25 .375 gm In Sodium Chloride 0.9% 100 ml @ 25 mls/hr IVPB Q8H [facility] Rx#: [id number] Intake, IV Titration 100 175 25 Amount Piperacillin-Tazobactam 3 100 175 25 .375 gm In Sodium Chloride 0.9% 100 ml @ 25 mls/hr IVPB Q8H [facility] Rx#: [id number] Oral 720 Output: Urine 600 400 600 Other: Voiding Method External Catheter External Catheter # Voids 1 # Bowel Movements 1 1 - Exam - General no distress - Eyes normal ocular movement, no pale - ENT normal nares, normal mucosa - Respiratory normal expansion, normal respiratory effort - Abdomen Abdomen: soft, mild tenderness - Labs CBC & Chem 7: 12/05/21 12:41 12/05/21 12:41 Labs: Abnormal Lab Results - Last 24 Hours (Table) 12/04/21 12/04/21 12/05/21 Range/Units 16:12 20:06 06:39 POC Glucose (mg/dL) 244 H 320 H 283 H (70-110) mg/dL 12/05/21 Range/Units 12:00 POC Glucose (mg/dL) 323 H (70-110) mg/dL Microbiology - Last 24 Hours (Table) 12/03/21 23:00 Gram Stain - Preliminary Sputum Sputum Culture - Preliminary 11/29/21 13:46 Blood Culture - Preliminary Blood No Growth after 120 hours 11/29/21 13:18 Blood Culture - Preliminary Blood No Growth after 120 hours Assessment and Plan (1) Right renal mass Current Visit: No Status: Acute Code(s): N28.89 - OTHER SPECIFIED DISORDERS OF KIDNEY AND URETER SNOMED Code(s): 736065754 Plan: Impression and plan of care have been directed as dictated by the signing physician. Divine Dorantes nurse practitioner acting as scribe for signing physician. Divine Dorantes [facility] Palliative Care/Urology [facility] [id number] Email: [email or web address] I personally performed and participated in history, physical Exam and decision making. I agree with the assessment and plan of the MASK DESIGN ENGINEER. Time with Patient: Less than 30
[2021-12-05 12:52] LABS: Basophils # (A) 0.1 k/uL (0-0.2); Basophils % (A) 1 %; Eosinophils # (A) 0.1 k/uL (0-0.7); Eosinophils % (A) 1 %; HCT 34.1 % (34.0-46.0); HGB 10.9 gm/dL (11.4-16.0); Hypochromasia Slight; Lymphocytes # (A) 0.7 k/uL (1.0-4.8); Lymphocytes % (A) 5 %; MCV 90.7 fL (80.0-100.0); Monocytes # (A) 0.4 k/uL (0-1.0); Monocytes % (A) 3 %; Neutrophils # (A) 14.5 k/uL (1.3-7.7); Neutrophils % (A) 91 %; Platelet Count 334 k/uL (150-450); RBC 3.76 m/uL (3.80-5.40); RDW 14.5 % (11.5-15.5)
[2021-12-05 13:30] LABS: Albumin 3.5 g/dL (3.5-5.0); Calcium 8.7 mg/dL (8.4-10.2); Potassium 4.6 mmol/L (3.5-5.1); Total Bilirubin 0.7 mg/dL (0.2-1.3); Total Protein 6.3 g/dL (6.3-8.2)
[2021-12-05 16:41] LABS: Glucose,Whole Blood 413 mg/dL (70-110)
[2021-12-05] MEDS ORDERED: INSULIN DETEMIR (LEVEMIR) 100 UNIT/ML SYR SQ ONE (17:06)
[2021-12-05 18:04] LABS: Glucose,Whole Blood 434 mg/dL (70-110)
[2021-12-05 20:25] LABS: Glucose,Whole Blood 378 mg/dL (70-110)
[2021-12-05] MEDS: ATORVASTATIN 80 MG TAB PO SCH (20:30)
--- NOTE | 2021-12-05 23:33 | P.PN ---
Subjective This is a 76 year old female, post operative day #4 right partial nephrectomy for known history of right renal mass. Patients hospital stay complicated by shortness of breath and hypoxia, with chest pain. A team was called this morning and patient has been transferred to intensive care unit for close monitoring. Found to be in atrial fibrillation with rapid ventricular rate and received amiodarone bolus and continues on amiodarone infusion, pending cardiology consultation. Patient also received a dose of IV lasix 40 mg today. D-Dimer elevated at 0.96, chest CTA is negative for pulmonary embolism. Chest xray showing patchy bibasilar infiltrates. Continues on bronchodilators, empiric antibiotics with IV zosyn. Echocardiogram completed in April of this year shows an EF of 45-50% with LV wall hypokinesis, mild MR, mild TR. Labs reviewed today showing a white count of 13.2, sodium 136, beyond 20, creatinine 1.25. He does have troponin elevation at 1.400. Liver enzymes are also elevated, proBNP 662. Covid negative. He remains afebrile, heart rate 140 8H fibrillation, blood pressure 101/73, patient is on a non rebreather at 15 L. Patient is on a combination of amlodipine/benazepril daily which we will hold at this time secondary to low normal BPs. 11/29/2021 Patient is evaluated today in intensive care unit. Converted to normal sinus rhythm yesterday afternoon and amiodarone has been discontinued. Urology recommending for patient to hold anticoagulation currently and eliquis has been stopped at this time. Troponins have been trended and increased up to 41.000. Cardiology following patient. Echocardiogram has been ordered. Patient had chest xray this morning showing basilar pneumonia with findings similar to previous exam with associated effusion. Follow up abdomen chest CT showing possible perinephric hemorrhage/hematoma. with possible additional areas of strandy hemorrhage in the right pericaval region. Also, possible small focal hematoma vs. metastatic deposit in lateral right perinephric space. There is possible infectious or aspiration pneumonitis with trace right pleural effusion. No pericardial effusion. There is coronary artery disease evident. Patient continues on BiPAP with FiO2 of 88%, afebrile, maintaining normal sinus rhythm heart rate 82, blood pressure 106/59. Continues on IV zosyn. Labs reviewed showing BUN 30, creatinine 1.53, AST 204, ALT 122, alk phos 152 which have increased. 11/30/2021 Patient continues to be monitored closely in intensive care unit. She has been transitioned from BiPAP onto high flow airvo oxygen support with 55/80. Had low grade fever 99.8 around midnight. Today she is sitting up in chair, reports having cough with occasional sputum production. Reports breathing better, no chest pain. Has not had BM, she does not want any additional stool softeners besides colace. Chest xray today showing possible developing pulmonary vascular congestion, with developing patchy edema/infiltrate right lower lung and consolidation left base. Continues on IV zosyn. Procalcitonin level today 0.48. Creatinine today 1.58. Has been started on baby aspirin. Urology recommending to hold off on anticoagulation due to risk for bleeding. She is postoperative day #6 right partial nephrectomy. 12/01/2021 Patient is evaluated in the intensive care unit. Patient is postoperative day #7 right partial nephrectomy. She has been resumed on plavix and also started on lovenox today. Continues on airvo oxygen support 50/50 with oxygen saturations of 93%. Afebrile overnight. Blood cultures are currently negative. Continues on IV antibiotics with IV zosyn empirically. She has not had a BM postoperatively does have increased bowel sounds today. She is agreeable to miralax in addition to colace. Labs today showing sodium level of 135, potassium 4.1, BUN 35, creatinine 1.33, glucose in the 100s. Procalcitonin level today 0.41. proBNP was checked at 2790. Echocardiogram showing EF 45% with moderate LVH, mild MR, Moderate aortic stenosis. 12/02/2021 Patient status post right nephrectomy for kidney mass with pathology showing renal cell carcinoma with clear margins, patient does not have a Porter catheter and sheaths. Without problem and urologist already followed up with the patient. Patient also with new onset A. fib and her rate is controlled, no anticoagulation for her recent surgery. She is on prophylactic Lovenox Also with evidence of bilateral pneumonia, left more than right lower lobe. Currently covered with Zosyn. FiO2 is 50% with global 45 L per minute and gradually improving. 12/03/2021 Patient looks similar to yesterday sitting in chair with air for nasal cannula with a similar to yesterday with flow rate 42-year-old FiO2 50% patient is still tachypneic and chest x-ray showed evidence of CHF Heart A. fib heart rate looks controlled. With no chest pain However patient mainly has extensive consolidation of lung secondary to infection and is currently on Zosyn. Also she is on aspirin and Plavix and Lovenox 12/05/2019 Patient breathing pattern with same as yesterday. She still on flow rate of 40 L per minute and FiO2 of 50% over the last 3 days with no much improvement. She is currently on Zosyn for left more right lower lobe pneumonia, However there is some evidence of fluid overload and she visits one-time dose of Lasix 40 mg also IV Solu-Medrol of 40 mg every 6 or started today. Patient is also on aspirin and Plavix and Lovenox lactic dose. Echocardiogram showed ejection fraction of 45% with moderate aortic stenosis and LVH. Creatinine 1.1 12/05/2021 Patient sitting in chair, she says her breathing is slightly better, her oxygen requirement also slightly went down to 40/40%. Patient still tachypneic However she still distended tachypneic and she has evidence of CHF on the chest x-ray or bone morning and not excluded, also chest x-ray and ultrasound showing small left pleural effusion that is been treated with IV Lasix. Also patient continued Zosyn. Creatinine is stable at 1.1. Her heart rate is A. fib with rate controlled Objective - Vital Signs Vital signs: Vital Signs Temp 97.8 F 12/05/21 04:00 Pulse 53 L 12/05/21 12:00 Resp 16 12/05/21 12:00 BP 166/75 12/05/21 12:00 Pulse Ox 94 L 12/05/21 12:00 FiO2 50 12/05/21 12:00 Intake & Output 12/04/21 12/05/21 12/05/21 18:59 06:59 18:59 Intake Total 955 225 65 Output Total 600 400 600 Balance 103 -961 -585 Weight 74.3 kg Intake: IV 135 50 40 0.9 110 50 40 Piperacillin-Tazobactam 3 25 .375 gm In Sodium Chloride 0.9% 100 ml @ 25 mls/hr IVPB Q8H [facility] Rx#: [id number] Intake, IV Titration 100 175 25 Amount Piperacillin-Tazobactam 3 100 175 25 .375 gm In Sodium Chloride 0.9% 100 ml @ 25 mls/hr IVPB Q8H [facility] Rx#: [id number] Oral 720 Output: Urine 600 400 600 Other: Voiding Method External Catheter External Catheter # Voids 1 # Bowel Movements 1 1 - Exam GENERAL: The patient is alert and oriented x3, not in any acute distress. Well developed, well nourished. HEENT: Pupils are round and equally reacting to light. EOMI. No scleral icterus. No conjunctival pallor. Normocephalic, atraumatic. No pharyngeal erythema. No thyromegaly. CARDIOVASCULAR: S1 and S2 present. No murmurs, rubs, or gallops. PULMONARY: Chest is clear to auscultation, no wheezing or crackles. ABDOMEN: Soft, nontender, nondistended, normoactive bowel sounds. No palpable organomegaly. MUSCULOSKELETAL: No joint swelling or deformity. EXTREMITIES: No cyanosis, clubbing, or pedal edema. NEUROLOGICAL: Gross neurological examination did not reveal any focal deficits. SKIN: No rashes. no petechiae. - Labs CBC & Chem 7: 12/05/21 12:41 12/05/21 12:41 Labs: Abnormal Lab Results - Last 24 Hours (Table) 12/04/21 12/04/21 12/05/21 Range/Units 16:12 20:06 06:39 POC Glucose (mg/dL) 244 H 320 H 283 H (70-110) mg/dL 12/05/21 Range/Units 12:00 POC Glucose (mg/dL) 323 H (70-110) mg/dL Microbiology - Last 24 Hours (Table) 12/03/21 23:00 Gram Stain - Preliminary Sputum Sputum Culture - Preliminary 11/29/21 13:46 Blood Culture - Preliminary Blood No Growth after 120 hours 11/29/21 13:18 Blood Culture - Preliminary Blood No Growth after 120 hours Assessment and Plan Assessment: Acute hypoxic respiratory failure secondary to possible bilateral pneumonia currently on airvo oxygen support Acute hypoxic respiratory failure secondary to above New-onset atrial fibrillation with rapid ventricular rate, converted to normal sinus rhythm. Troponin elevation secondary to type 2 AL, managed medically Status post robotic partial right nephrectomy with pathology: Renal cell carcinoma with clear margin Acute renal injury improving Elevated liver enzymes Diabetes mellitus type 2 Hypertension currently blood pressure is 100 systolic Hyperlipidemia History coronary artery disease status post cardiac stents in the past Plan: Patient is being monitored in intensive care unit currently on Airvo 45/50 Continue empiric antibiotic coverage, currently on Zosyn and bronchodilators Systemic steroids Hold amlodipine/benazepril combination Continue daily stool softener, miralax added today Currently on aspirin/plavix combination No further cardiac workup. Urologist of the case GI Prophylaxis:Pepcid DVT Prophylaxis: Lovenox Full Code
[2021-12-06] MEDS: methylPREDNISolone SOD SUCCI 40 MG/ML 1 ML VIAL IV SCH ×3 (00:57→21:39)
[2021-12-06 02:08] LABS: Glucose,Whole Blood 255 mg/dL (70-110)
[2021-12-06] MEDS: PIPERACILLIN-TAZOBACTAM 3.375 GM in SODIUM CHLORIDE 0.9% 100 ML IVPB SCH ×3 (04:15→21:38)
[2021-12-06 05:02] LABS: Basophils # (A) 0.1 k/uL (0-0.2); Basophils % (A) 0 %; Eosinophils % (A) 0 %; HCT 31.9 % (34.0-46.0); HGB 10.7 gm/dL (11.4-16.0); Hypochromasia Slight; Lymphocytes # (A) 0.8 k/uL (1.0-4.8); Lymphocytes % (A) 5 %; MCH 30.1 pg (25.0-35.0); MCHC 33.6 g/dL (31.0-37.0); MCV 89.4 fL (80.0-100.0); Mean Platelet Volume 7.9; Monocytes # (A) 0.6 k/uL (0-1.0); Monocytes % (A) 4 %; Neutrophils # (A) 13.2 k/uL (1.3-7.7); Neutrophils % (A) 90 %; Platelet Count 326 k/uL (150-450); RBC 3.56 m/uL (3.80-5.40); RDW 14.6 % (11.5-15.5); WBC 14.7 k/uL (3.8-10.6)
[2021-12-06 05:28] LABS: Calcium 8.6 mg/dL (8.4-10.2); Potassium 4.7 mmol/L (3.5-5.1)
[2021-12-06 06:50] LABS: Glucose,Whole Blood 251 mg/dL (70-110)
[2021-12-06] MEDS: INSULIN ASPART (NovoLOG) 100 UNIT/ML VIAL SQ SCH ×8 (06:55→21:32)
[2021-12-06] MEDS ORDERED: INSULIN DETEMIR (LEVEMIR) 100 UNIT/ML SYR SQ SCH (07:00)
--- NOTE | 2021-12-06 08:31 | XR ---
EXAMINATION TYPE: XR chest 1V portable DATE OF EXAM: 12/06/2021 Comparison: 12/05/2021 Clinical History: 76-year-old female assess lungs Findings: Heart borderline enlarged. Interstitial dominance. Ongoing small to moderate left effusion and promin ent retrocardiac and left basilar opacity. Some patchy right basilar opacity also remains. Impression: Similar [id number] left pleural effusion with prominent adjacent left basilar atelectasis and/ or consolidation. Similar patchy right basilar opacity as well.
[2021-12-06] MEDS: IPRATROPIUM-ALBUTEROL 3 ML NEB INHALATION SCH ×4 (08:41→21:32)
[2021-12-06] MEDS: ENOXAPARIN 40 MG/0.4 ML SYRINGE SQ SCH (09:21)
[2021-12-06] MEDS: amLODIPine 10 MG TAB PO SCH (09:21)
[2021-12-06] MEDS: METOPROLOL TARTRATE 25 MG TAB PO SCH (09:21)
[2021-12-06] MEDS: ASPIRIN 81 MG PO SCH (09:21)
[2021-12-06] MEDS: CLOPIDOGREL 75 MG TAB PO SCH (09:21)
[2021-12-06] MEDS: DOCUSATE 100 MG CAP PO SCH (09:25)
[2021-12-06] MEDS: FAMOTIDINE 20 MG TAB PO SCH (09:25)
[2021-12-06] MEDS: polyethylene glycoL 3350 17 GM POWD.PACK PO SCH (09:25)
--- NOTE | 2021-12-06 10:46 | P.PN ---
Subjective Progress Note Date: 12/06/21 Principal diagnosis: Acute hypoxic respiratory failure secondary to postoperative atelectasis and postoperative pleural effusion and possible acute systolic congestive heart failure. This is a 76-year-old female patient of the transferred to the intensive care unit for increased shortness of breath. The patient was found to be in atrial fibrillation with rapid ventricular response and for that reason the patient got transferred to the ICU. The patient is currently postop day #4. The patient underwent a right partial nephrectomy. A CTA of the chest was done yesterday an d the patient was found to have no evidence of any pulmonary embolism. Note that the patient was found to have a 3.5 cm right sided renal mass. Based on that, the patient was taken to the operating room for a nephrectomy. The patient is known to be having other comorbid conditions including hypertension, hyperlipidemia diabetes mellitus. The patient is also known to have CAD with previous WI. She has previous chronic catheterization and stenting.. This morning, the patient Got transferred to the intensive care unit the patient developed itchy fibrillation with rapid ventricular response. She is currently on the heart rate of 137, irregular with a blood pressure 113/75. She was placed on 100% nonrebreather facemask and her current pulse ox is 94%. The patient is also having some chest pain this morning. Morning chest pains. The patient is also having chest pain which is sternal, 6 out of 10 in severity. Cardiac enzymes are pending. EKG was done and it showed atrial fibrillation with a rapid ventricular response . I reviewed the EKG there is no significant ST segment changes. There is voltage criteria for LVH. There may be some inferior wall ST segment depression. The chest x-ray also showed some limited bibasilar pulmonary infiltrates along with some cardiomegaly. Lung volumes are essentially small. The patient is currently postoperative day #4. IV fluids are currently at KVO. The patient came in to the ICU and she was given amiodarone bolus initially at a dose of 150 mg of following that she was started on a maintenance of 1 mg/m. I also reviewed the CTA of the chest that was done on 11/27/2021. As mentioned, there is evidence of a pulmonary embolism. There is significant atelectatic changes in the lung bases bilaterally. No reported aspiration. She has an incentive spirometer at the bedside. In terms of her blood work, the patient's white cell count that is a 50 point the XII.5 and a platelet count of 204. Electrolytes from yesterday were all within normal limits with the B creatinine 1.09. Sodium is 136. Cardiac enzymes are st ill pending. The patient is diabetic and she is on a combination of antihypertensive diabetic medication. She is on Dilaudid for pain control. She is also on IV Zosyn that was started 11/26/21 as an empiric antibiotic coverage.the patient had an echocardiogram on 05/05/2021 that showed segmental w all motion abnormalities involving the anterior wall, inferior wall of the septal wall. Ejection fraction was around 45-50%. The LV size was normal. No significant valvular abnormalities were noted. No significant pulmonary hypertension. Her previous cardiac catheterization was done in April 2021. She has undergone stenting to the LAD and subsequently to the circumflex. As such, the patient has stool coronary stents and the patient was receiving dual antiplatelet treatment on outpatient basis. Reevaluated today on 12/05/21, patient remains in the ICU, remains on airvo at 50% FiO2 and 40 L flow. Patient continues to have abnormal chest x-ray showing bilateral pleural effusions left more so than right, possible diastolic congestive heart failure, and significant atelectasis of the left base. Overnight, the patient has been on BiPAP, she is improving but very slowly. Continue his incentive spirometry, and COVID-19 testing came back negative ultrasound of the chest today showed pleural effusion but not large enough to consider thoracentesis safely. WBC count is 9.7 hemoglobin is 10.9 lites are normal renal profile showed a BUN of 23 creatinine 1.16, unchanged compared to the last few days. Chest x-ray continues to show cardiomegaly, small pleural effusions, the chest x-ray itself is consistent with congestive heart failure, superimposed infection is not entirely excluded. More Lasix was given today. Reevaluated today on 12/06/21, patient remains in the ICU, remains on airvo at 40% FiO2 and 40 L flow, patient is feeling better breathing easier, her chest x- ray is showing improvement in her left pleural effusion and atelectasis. Hence I will try the patient on a high flow nasal cannula. And I plan to transfer the patient to regular medical floor today if possible. WBC count is 14.7 hemoglobin is 10.7 and electrolytes are normal creatinine is 1.27, hence I will hold on diuretics today. Patient remains on amlodipine, aspirin, atorvastatin, Plavix, Colace, Lovenox 30 mg subcu daily, Pepcid 20 mg daily, hydrocodone, Dilaudid, insulin subcu, DuoNeb updrafts 4 times a day and when necessary, methylprednisolone 40 mg IV push every 6 hours and I will cut it down to every 8, she is also on metoprolol nitroglycerin and Zosyn Objective - Vital Signs Vital signs: Vital Signs Temp 97.6 F 12/06/21 08:00 Pulse 50 L 12/06/21 10:00 Resp 18 12/06/21 10:00 BP 154/74 12/06/21 10:00 Pulse Ox 98 12/06/21 10:00 FiO2 40 12/06/21 08:41 Intake & Output 12/05/21 12/06/21 12/06/21 18:59 06:59 18:59 Intake Total 235 245 130 Output Total 600 836 51 Balance -365 -591 79 Weight 74.3 kg Intake: IV 110 120 30 0.9 110 120 30 Intake, IV Titration 125 100 Amount Piperacillin-Tazobactam 3 125 100 .375 gm In Sodium Chloride 0.9% 100 ml @ 25 mls/hr IVPB Q8H [facility] Rx#: [id number] Oral 25 100 Output: Urine 600 835 50 Stool 1 1 Other: Voiding Method Bedside Commode Bedside Commode Bedside Commode # Voids 1 # Bowel Movements 1 - Exam Physical Exam: Revealed 76-year-old female on airvo, not in distress. Head: Atraumatic normocephalic HEENT:[Neck is supple.] [No neck masses.] [No thyromegaly.] [No JVD.] Chest: [Diminished breath sounds bilaterally more so at the left base, fine crackles at the left base. Cardiac Exam: [Normal S1 and S2, no S3 gallop, 2/6 systolic murmur thought the precordium. Abdomen: [Soft, nontender, no megaly, no rebound, no guarding, normal bowel sounds.] Extremities: [No clubbing, 1+ bipedal edema, no cyanosis.] Neurological Exam: [No focal neurologic deficit.] Alert oriented 3. Psychiatric: Normal mood affect and normal mental status examination. Skin: No rashes. Musculoskeletal: No deformities and no limitation in range of motion - Labs CBC & Chem 7: 12/06/21 04:23 12/06/21 04:23 Labs: Abnormal Lab Results - Last 24 Hours (Table) 12/05/21 12/05/21 12/05/21 Range/Units 12:00 12:41 12:41 WBC 16.0 H (3.8-10.6) k/uL RBC 3.76 L (3.80-5.40) m/uL Hgb 10.9 L (11.4-16.0) gm/dL Hct (34.0-46.0) % Neutrophils # 14.5 H (1.3-7.7) k/uL Lymphocytes # 0.7 L (1.0-4.8) k/uL Sodium 136 L (137-145) mmol/L BUN 38 H (7-17) mg/dL Creatinine 1.19 H (0.52-1.04) mg/dL Glucose 358 H (74-99) mg/dL POC Glucose (mg/dL) 323 H (70-110) mg/dL ALT 49 H (4-34) U/L Alkaline Phosphatase 223 H (38-126) U/L 12/05/21 12/05/21 12/05/21 Range/Units 16:40 18:02 20:23 WBC (3.8-10.6) k/uL RBC (3.80-5.40) m/uL Hgb (11.4-16.0) gm/dL Hct (34.0-46.0) % Neutrophils # (1.3-7.7) k/uL Lymphocytes # (1.0-4.8) k/uL Sodium (137-145) mmol/L BUN (7-17) mg/dL Creatinine (0.52-1.04) mg/dL Glucose (74-99) mg/dL POC Glucose (mg/dL) 413 H 434 H 378 H (70-110) mg/dL ALT (4-34) U/L Alkaline Phosphatase (38-126) U/L 12/06/21 12/06/21 12/06/21 Range/Units 02:06 04:23 04:23 WBC 14.7 H (3.8-10.6) k/uL RBC 3.56 L (3.80-5.40) m/uL Hgb 10.7 L (11.4-16.0) gm/dL Hct 31.9 L (34.0-46.0) % Neutrophils # 13.2 H (1.3-7.7) k/uL Lymphocytes # 0.8 L (1.0-4.8) k/uL Sodium 136 L (137-145) mmol/L BUN 40 H (7-17) mg/dL Creatinine 1.27 H (0.52-1.04) mg/dL Glucose 239 H (74-99) mg/dL POC Glucose (mg/dL) 255 H (70-110) mg/dL ALT (4-34) U/L Alkaline Phosphatase (38-126) U/L 12/06/21 Range/Units 06:48 WBC (3.8-10.6) k/uL RBC (3.80-5.40) m/uL Hgb (11.4-16.0) gm/dL Hct (34.0-46.0) % Neutrophils # (1.3-7.7) k/uL Lymphocytes # (1.0-4.8) k/uL Sodium (137-145) mmol/L BUN (7-17) mg/dL Creatinine (0.52-1.04) mg/dL Glucose (74-99) mg/dL POC Glucose (mg/dL) 251 H (70-110) mg/dL ALT (4-34) U/L Alkaline Phosphatase (38-126) U/L Microbiology - Last 24 Hours (Table) 12/03/21 23:00 Gram Stain - Final Sputum Sputum Culture - Final 11/29/21 13:46 Blood Culture - Final Blood No Growth after 144 hours 11/29/21 13:18 Blood Culture - Final Blood No Growth after 144 hours Assessment and Plan Assessment: Impression: Acute hypoxic respiratory failure, multifactorial, mostly related to postoperative atelectasis and consolidation, left pleural effusion and left lower lobe atelectasis, suspect acute systolic congestive heart failure and ejection fraction of 45% Moderate aortic stenosis New-onset atrial fibrillation Acute non-ST elevation myocardial infarction History of nephrectomy/renal mass postoperative day #12 Perinephric edema and suspected hemorrhage in the perinephric area History of underlying coronary artery disease and previous stent of circumflex and LAD Type 2 diabetes Benign essential hypertension Acute kidney injury Recommendation: Continue oxygen transition to a high flow nasal cannula today. Continue incentive spirometry Hold Lasix for today only Decrease Solu-Medrol to 40 mg IV push every 8 hours Continue Lovenox for DVT prophylaxis patient is also on aspirin and Plavix for underlying coronary artery disease and previous stent Continue Zosyn Continue sliding scale insulin Ambulate to a chair. Transferred to a regular medical floor. Prognosis remains guarded. Time with Patient: Less than 30
--- NOTE | 2021-12-06 11:25 | P.PN ---
Subjective Progress Note Date: 12/06/21 Principal diagnosis: Right renal mass This is an 76-year-old female with history of a 3.5 cm right sided renal mass. She is 12 days post-op from a right robotic partial nephrectomy with extensive lysis of adhesions. Postoperative complications included A. fib with RVR and pneumonia. She is still recovering from pneumonia. Today she is sitting up in the chair and reports feeling good. She is currently on 11L HFNC. Laparoscopic sites to abdomen are clean and dry. She denies any pain. She is afebrile. She is tolerating a regular diet. Denies nausea or vomiting. She is voiding without difficulty, denies any dysuria or hematuria. Encourage ambulation as tolerated. She is stable urologically. Objective - Vital Signs Vital signs: Vital Signs Temp 97.6 F 12/06/21 08:00 Pulse 50 L 12/06/21 10:00 Resp 18 12/06/21 10:00 BP 154/74 12/06/21 10:00 Pulse Ox 98 12/06/21 10:00 FiO2 40 12/06/21 08:41 Intake & Output 12/05/21 12/06/21 12/06/21 18:59 06:59 18:59 Intake Total 235 245 140 Output Total 600 836 51 Balance -365 -591 89 Weight 74.3 kg Intake: IV 110 120 40 0.9 110 120 40 Intake, IV Titration 125 100 Amount Piperacillin-Tazobactam 3 125 100 .375 gm In Sodium Chloride 0.9% 100 ml @ 25 mls/hr IVPB Q8H [facility] Rx#: [id number] Oral 25 100 Output: Urine 600 835 50 Stool 1 1 Other: Voiding Method Bedside Commode Bedside Commode Bedside Commode # Voids 1 # Bowel Movements 1 - Exam - General no distress - Eyes normal ocular movement, no pale - ENT normal nares, normal mucosa - Respiratory normal expansion, normal respiratory effort - Abdomen Abdomen: soft, mild tenderness - Labs CBC & Chem 7: 12/06/21 04:23 12/06/21 04:23 Labs: Abnormal Lab Results - Last 24 Hours (Table) 12/05/21 12/05/21 12/05/21 Range/Units 12:00 12:41 12:41 WBC 16.0 H (3.8-10.6) k/uL RBC 3.76 L (3.80-5.40) m/uL Hgb 10.9 L (11.4-16.0) gm/dL Hct (34.0-46.0) % Neutrophils # 14.5 H (1.3-7.7) k/uL Lymphocytes # 0.7 L (1.0-4.8) k/uL Sodium 136 L (137-145) mmol/L BUN 38 H (7-17) mg/dL Creatinine 1.19 H (0.52-1.04) mg/dL Glucose 358 H (74-99) mg/dL POC Glucose (mg/dL) 323 H (70-110) mg/dL ALT 49 H (4-34) U/L Alkaline Phosphatase 223 H (38-126) U/L 12/05/21 12/05/21 12/05/21 Range/Units 16:40 18:02 20:23 WBC (3.8-10.6) k/uL RBC (3.80-5.40) m/uL Hgb (11.4-16.0) gm/dL Hct (34.0-46.0) % Neutrophils # (1.3-7.7) k/uL Lymphocytes # (1.0-4.8) k/uL Sodium (137-145) mmol/L BUN (7-17) mg/dL Creatinine (0.52-1.04) mg/dL Glucose (74-99) mg/dL POC Glucose (mg/dL) 413 H 434 H 378 H (70-110) mg/dL ALT (4-34) U/L Alkaline Phosphatase (38-126) U/L 12/06/21 12/06/21 12/06/21 Range/Units 02:06 04:23 04:23 WBC 14.7 H (3.8-10.6) k/uL RBC 3.56 L (3.80-5.40) m/uL Hgb 10.7 L (11.4-16.0) gm/dL Hct 31.9 L (34.0-46.0) % Neutrophils # 13.2 H (1.3-7.7) k/uL Lymphocytes # 0.8 L (1.0-4.8) k/uL Sodium 136 L (137-145) mmol/L BUN 40 H (7-17) mg/dL Creatinine 1.27 H (0.52-1.04) mg/dL Glucose 239 H (74-99) mg/dL POC Glucose (mg/dL) 255 H (70-110) mg/dL ALT (4-34) U/L Alkaline Phosphatase (38-126) U/L 12/06/21 Range/Units 06:48 WBC (3.8-10.6) k/uL RBC (3.80-5.40) m/uL Hgb (11.4-16.0) gm/dL Hct (34.0-46.0) % Neutrophils # (1.3-7.7) k/uL Lymphocytes # (1.0-4.8) k/uL Sodium (137-145) mmol/L BUN (7-17) mg/dL Creatinine (0.52-1.04) mg/dL Glucose (74-99) mg/dL POC Glucose (mg/dL) 251 H (70-110) mg/dL ALT (4-34) U/L Alkaline Phosphatase (38-126) U/L Microbiology - Last 24 Hours (Table) 12/03/21 23:00 Gram Stain - Final Sputum Sputum Culture - Final 11/29/21 13:46 Blood Culture - Final Blood No Growth after 144 hours 11/29/21 13:18 Blood Culture - Final Blood No Growth after 144 hours Assessment and Plan (1) Right renal mass Current Visit: No Status: Acute Code(s): N28.89 - OTHER SPECIFIED DISORDERS OF KIDNEY AND URETER SNOMED Code(s): 124701087 Plan: Impression and plan of care have been directed as dictated by the signing physician. Divine Dorantes nurse practitioner acting as scribe for signing physician. Divine Dorantes [facility] Palliative Care/Urology Spectralink [phone] Email: [email or web address] Time with Patient: Less than 30
[2021-12-06 11:43] LABS: Glucose,Whole Blood 267 mg/dL (70-110)
--- NOTE | 2021-12-06 11:46 | CDI ---
Documentation Clarification Form Date: 12/06/2021 11:30:45 AM From: Kellen Graves CCS, CCDS Admit Date: 11/28/2021 07:38:00 AM Patient Name: Jessica Perez Visit Number: [id number] Discharge Date: ATTENTION: The Clinical Documentation Specialists (CDI) and [facility] Coding Staff appreciate your assistance in clarifying documentation. Please respond to the clarification below the line at the bottom and electronically sign. The CDI & [facility] Coding staff will review the response and follow-up if needed. Please note: Queries are made part of the Legal Health Record. If you have any questions, please contact the author of this message via ITS. Dr. Erwin Olivia: Cardiology was consulted on 11/28 for Atrial Fibrillation, the patient was initially admitted to the hospital on 11/23 for right robotic partial nephrectomy and lysis of adhesions. The patient was transferred to ICU am with Atrial Fibrillation with RVR. Per the 11/30 Medical Management Progress Note: New onset Atrial Fibrillation with RVR, converted to normal sinus rhythm, Troponin elevation secondary to Type 2 MO. Additional clarification regarding the Type of Atrial Fibrillation is requested. History/Risk Factors per the 11/26 Medical Management Consult: DM II, Hypertension, Hyperlipidemia. Clinical Indicators: The patient presented on 11/24 for an elective Right Robotic Partial Nephrectomy with extensive Lysis of Adhesions. 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 11/24 HR: 65. 11/25 HR: 57. 11/28 HR: 152, 130s, 123 irregular. 11/29 HR: 50s. 11/30 HR: 70s - 50s. 11/28 EKG: R 132 Atrial fibrillation with RVR with PVCs, left axis deviation, Voltage criteria for LVH, Marked ST abnormality, possible inferolateral subendocardial injury. Treatment 11/24: O2 8L simple machine - 3Lnc, IV Cefazolin 50 mls @ 100 mls/hr x1, IV Decadron 4 mg x1, IV Dilaudid 0.5 mg q5M, IV lactated Ringers 1000 mls & 500 mls as directed, IV Sublimaze 50 mcg x1, Nitro sl 0.4 mg q5M/prn. 11/28: IV Amiodarone drip, IV Lasix 40 mg x1, po Eliquis 5 mg BID, po Lopressor 25 mg BID. Please clarify the type of Atrial Fibrillation, if known: [ ] Permanent [ ] Paroxysmal [ ] Persistent [ ] Other, please specify [ ] Unable to determine (Template Last Revised: June 2020) Unable to determine MTDD
[2021-12-06 16:44] LABS: Glucose,Whole Blood 325 mg/dL (70-110)
[2021-12-06] MEDS ORDERED: INSULIN DETEMIR (LEVEMIR) 100 UNIT/ML SYR SQ ONE ×2 (18:00→18:30)
[2021-12-06 21:13] LABS: Glucose,Whole Blood 347 mg/dL (70-110)
[2021-12-06] MEDS: ATORVASTATIN 80 MG TAB PO SCH (21:38)
[2021-12-06] MEDS: METOPROLOL TARTRATE 12.5 MG TAB PO SCH (21:39)
--- NOTE | 2021-12-06 22:27 | P.PN ---
Subjective This is a 76 year old female, post operative day #4 right partial nephrectomy for known history of right renal mass. Patients hospital stay complicated by shortness of breath and hypoxia, with chest pain. A team was called this morning and patient has been transferred to intensive care unit for close monitoring. Found to be in atrial fibrillation with rapid ventricular rate and received amiodarone bolus and continues on amiodarone infusion, pending cardiology consultation. Patient also received a dose of IV lasix 40 mg today. D-Dimer elevated at 0.96, chest CTA is negative for pulmonary embolism. Chest xray showing patchy bibasilar infiltrates. Continues on bronchodilators, empiric antibiotics with IV zosyn. Echocardiogram completed in April of this year shows an EF of 45-50% with LV wall hypokinesis, mild MR, mild TR. Labs reviewed today showing a white count of 13.2, sodium 136, beyond 20, creatinine 1.25. He does have troponin elevation at 1.400. Liver enzymes are also elevated, proBNP 662. Covid negative. He remains afebrile, heart rate 140 8H fibrillation, blood pressure 101/73, patient is on a non rebreather at 15 L. Patient is on a combination of amlodipine/benazepril daily which we will hold at this time secondary to low normal BPs. 11/29/2021 Patient is evaluated today in intensive care unit. Converted to normal sinus rhythm yesterday afternoon and amiodarone has been discontinued. Urology recommending for patient to hold anticoagulation currently and eliquis has been stopped at this time. Troponins have been trended and increased up to 41.000. Cardiology following patient. Echocardiogram has been ordered. Patient had chest xray this morning showing basilar pneumonia with findings similar to previous exam with associated effusion. Follow up abdomen chest CT showing possible perinephric hemorrhage/hematoma. with possible additional areas of strandy hemorrhage in the right pericaval region. Also, possible small focal hematoma vs. metastatic deposit in lateral right perinephric space. There is possible infectious or aspiration pneumonitis with trace right pleural effusion. No pericardial effusion. There is coronary artery disease evident. Patient continues on BiPAP with FiO2 of 88%, afebrile, maintaining normal sinus rhythm heart rate 82, blood pressure 106/59. Continues on IV zosyn. Labs reviewed showing BUN 30, creatinine 1.53, AST 204, ALT 122, alk phos 152 which have increased. 11/30/2021 Patient continues to be monitored closely in intensive care unit. She has been transitioned from BiPAP onto high flow airvo oxygen support with 55/80. Had low grade fever 99.8 around midnight. Today she is sitting up in chair, reports having cough with occasional sputum production. Reports breathing better, no chest pain. Has not had BM, she does not want any additional stool softeners besides colace. Chest xray today showing possible developing pulmonary vascular congestion, with developing patchy edema/infiltrate right lower lung and consolidation left base. Continues on IV zosyn. Procalcitonin level today 0.48. Creatinine today 1.58. Has been started on baby aspirin. Urology recommending to hold off on anticoagulation due to risk for bleeding. She is postoperative day #6 right partial nephrectomy. 12/01/2021 Patient is evaluated in the intensive care unit. Patient is postoperative day #7 right partial nephrectomy. She has been resumed on plavix and also started on lovenox today. Continues on airvo oxygen support 50/50 with oxygen saturations of 93%. Afebrile overnight. Blood cultures are currently negative. Continues on IV antibiotics with IV zosyn empirically. She has not had a BM postoperatively does have increased bowel sounds today. She is agreeable to miralax in addition to colace. Labs today showing sodium level of 135, potassium 4.1, BUN 35, creatinine 1.33, glucose in the 100s. Procalcitonin level today 0.41. proBNP was checked at 2790. Echocardiogram showing EF 45% with moderate LVH, mild MR, Moderate aortic stenosis. 12/02/2021 Patient status post right nephrectomy for kidney mass with pathology showing renal cell carcinoma with clear margins, patient does not have a Porter catheter and sheaths. Without problem and urologist already followed up with the patient. Patient also with new onset A. fib and her rate is controlled, no anticoagulation for her recent surgery. She is on prophylactic Lovenox Also with evidence of bilateral pneumonia, left more than right lower lobe. Currently covered with Zosyn. FiO2 is 50% with global 45 L per minute and gradually improving. 12/03/2021 Patient looks similar to yesterday sitting in chair with air for nasal cannula with a similar to yesterday with flow rate 42-year-old FiO2 50% patient is still tachypneic and chest x-ray showed evidence of CHF Heart A. fib heart rate looks controlled. With no chest pain However patient mainly has extensive consolidation of lung secondary to infection and is currently on Zosyn. Also she is on aspirin and Plavix and Lovenox 12/05/2019 Patient breathing pattern with same as yesterday. She still on flow rate of 40 L per minute and FiO2 of 50% over the last 3 days with no much improvement. She is currently on Zosyn for left more right lower lobe pneumonia, However there is some evidence of fluid overload and she visits one-time dose of Lasix 40 mg also IV Solu-Medrol of 40 mg every 6 or started today. Patient is also on aspirin and Plavix and Lovenox lactic dose. Echocardiogram showed ejection fraction of 45% with moderate aortic stenosis and LVH. Creatinine 1.1 12/05/2021 Patient sitting in chair, she says her breathing is slightly better, her oxygen requirement also slightly went down to 40/40%. Patient still tachypneic However she still distended tachypneic and she has evidence of CHF on the chest x-ray or bone morning and not excluded, also chest x-ray and ultrasound showing small left pleural effusion that is been treated with IV Lasix. Also patient continued Zosyn. Creatinine is stable at 1.1. Her heart rate is A. fib with rate controlled 12/06/2021 Patient continued to improve significantly her oxygen requirement dropped to 6 L per minute Patient continued on Solu-Medrol 40 mg and Zosyn Eventually patient transferred out of the ICU to the medical genital floor Patient insulin dose was adjusted. Keep monitoring glucose Objective - Vital Signs Vital signs: Vital Signs Temp 97.6 F 12/06/21 08:00 Pulse 60 12/06/21 12:47 Resp 29 H 12/06/21 12:00 BP 156/68 12/06/21 12:00 Pulse Ox 98 12/06/21 12:35 FiO2 40 12/06/21 08:41 Intake & Output 12/05/21 12/06/21 12/06/21 18:59 06:59 18:59 Intake Total 235 245 160 Output Total 600 836 51 Balance -365 -981 109 Weight 74.3 kg Intake: IV 110 120 60 0.9 110 120 60 Intake, IV Titration 125 100 Amount Piperacillin-Tazobactam 3 125 100 .375 gm In Sodium Chloride 0.9% 100 ml @ 25 mls/hr IVPB Q8H [facility] Rx#: [id number] Oral 25 100 Output: Urine 600 835 50 Stool 1 1 Other: Voiding Method Bedside Commode Bedside Commode Bedside Commode # Voids 1 1 # Bowel Movements 1 1 - Exam GENERAL: The patient is alert and oriented x3, not in any acute distress. Well developed, well nourished. HEENT: Pupils are round and equally reacting to light. EOMI. No scleral icterus. No conjunctival pallor. Normocephalic, atraumatic. No pharyngeal erythema. No thyromegaly. CARDIOVASCULAR: S1 and S2 present. No murmurs, rubs, or gallops. PULMONARY: Chest is clear to auscultation, no wheezing or crackles. ABDOMEN: Soft, nontender, nondistended, normoactive bowel sounds. No palpable organomegaly. MUSCULOSKELETAL: No joint swelling or deformity. EXTREMITIES: No cyanosis, clubbing, or pedal edema. NEUROLOGICAL: Gross neurological examination did not reveal any focal deficits. SKIN: No rashes. no petechiae. - Labs CBC & Chem 7: 12/06/21 04:23 12/06/21 04:23 Labs: Abnormal Lab Results - Last 24 Hours (Table) 12/05/21 12/05/21 12/05/21 Range/Units 12:41 16:40 18:02 WBC (3.8-10.6) k/uL RBC (3.80-5.40) m/uL Hgb (11.4-16.0) gm/dL Hct (34.0-46.0) % Neutrophils # (1.3-7.7) k/uL Lymphocytes # (1.0-4.8) k/uL Sodium 136 L (137-145) mmol/L BUN 38 H (7-17) mg/dL Creatinine 1.19 H (0.52-1.04) mg/dL Glucose 358 H (74-99) mg/dL POC Glucose (mg/dL) 413 H 434 H (70-110) mg/dL ALT 49 H (4-34) U/L Alkaline Phosphatase 223 H (38-126) U/L 10/17/22 10/18/22 10/18/22 Range/Units 20:23 02:06 04:23 WBC 14.7 H (3.8-10.6) k/uL RBC 3.56 L (3.80-5.40) m/uL Hgb 10.7 L (11.4-16.0) gm/dL Hct 31.9 L (34.0-46.0) % Neutrophils # 13.2 H (1.3-7.7) k/uL Lymphocytes # 0.8 L (1.0-4.8) k/uL Sodium (137-145) mmol/L BUN (7-17) mg/dL Creatinine (0.52-1.04) mg/dL Glucose (74-99) mg/dL POC Glucose (mg/dL) 378 H 255 H (70-110) mg/dL ALT (4-34) U/L Alkaline Phosphatase (38-126) U/L 12/06/21 12/06/21 12/06/21 Range/Units 04:23 06:48 11:41 WBC (3.8-10.6) k/uL RBC (3.80-5.40) m/uL Hgb (11.4-16.0) gm/dL Hct (34.0-46.0) % Neutrophils # (1.3-7.7) k/uL Lymphocytes # (1.0-4.8) k/uL Sodium 136 L (137-145) mmol/L BUN 40 H (7-17) mg/dL Creatinine 1.27 H (0.52-1.04) mg/dL Glucose 239 H (74-99) mg/dL POC Glucose (mg/dL) 251 H 267 H (70-110) mg/dL ALT (4-34) U/L Alkaline Phosphatase (38-126) U/L Microbiology - Last 24 Hours (Table) 12/03/21 23:00 Gram Stain - Final Sputum Sputum Culture - Final 11/29/21 13:46 Blood Culture - Final Blood No Growth after 144 hours 11/29/21 13:18 Blood Culture - Final Blood No Growth after 144 hours Assessment and Plan Assessment: Acute hypoxic respiratory failure secondary to possible bilateral pneumonia currently on airvo oxygen support Acute hypoxic respiratory failure secondary to above New-onset atrial fibrillation with rapid ventricular rate, converted to normal sinus rhythm. Troponin elevation secondary to type 2 LA, managed medically Status post robotic partial right nephrectomy with pathology: Renal cell carcinoma with clear margin Acute renal injury improving Elevated liver enzymes Diabetes mellitus type 2 Hypertension currently blood pressure is 100 systolic Hyperlipidemia History coronary artery disease status post cardiac stents in the past Plan: Patient is being monitored in intensive care unit currently on Airvo 45/50 Continue empiric antibiotic coverage, currently on Zosyn and bronchodilators Systemic steroids Hold amlodipine/benazepril combination Continue daily stool softener, miralax added today Currently on aspirin/plavix combination No further cardiac workup. Urologist of the case GI Prophylaxis:Pepcid DVT Prophylaxis: Lovenox Full Code
[2021-12-07] MEDS ORDERED: INSULIN DETEMIR (LEVEMIR) 100 UNIT/ML SYR SQ SCH (07:00)
--- NOTE | 2021-12-07 07:18 | XR ---
EXAMINATION TYPE: XR chest 1V portable DATE OF EXAM: 12/07/2021 6:27 AM COMPARISON: Chest radiographs from 12/06/2021. TECHNIQUE: XR chest 1V portable Frontal view of the chest. CLINICAL INDICATION:Female, 76 years old with history of assess lungs; FINDINGS: Lungs/Pleura: No pneumothorax. Blunting of the left costophrenic angle. Prominent retrocardiac and le ft basilar opacity redemonstrated. Improved aeration of the right lung base. Pulmonary vascularity: Unremarkable. Heart/mediastinum: Cardiomediastinal silhouette is borderline enlarged and stable. Atherosclerotic c alcifications are seen in the aorta. Musculoskeletal: No acute osseous pathology. IMPRESSION: Numerous small to moderate left pleural effusion with prominent adjacent left basilar atelectasis and /or consolidation.. Improved aeration of the right lung base.
[2021-12-07 07:21] LABS: Glucose,Whole Blood 246 mg/dL (70-110)
[2021-12-07] MEDS: PIPERACILLIN-TAZOBACTAM 3.375 GM in SODIUM CHLORIDE 0.9% 100 ML IVPB SCH ×3 (07:28→20:45)
[2021-12-07] MEDS: METOPROLOL TARTRATE 12.5 MG TAB PO SCH ×2 (07:29→20:45)
[2021-12-07] MEDS: amLODIPine 10 MG TAB PO SCH (07:29)
[2021-12-07] MEDS: CLOPIDOGREL 75 MG TAB PO SCH (07:29)
[2021-12-07] MEDS: ASPIRIN 81 MG PO SCH (07:29)
[2021-12-07] MEDS: FAMOTIDINE 20 MG TAB PO SCH (07:30)
[2021-12-07] MEDS: INSULIN ASPART (NovoLOG) 100 UNIT/ML VIAL SQ SCH ×8 (07:30→20:44)
[2021-12-07] MEDS: INSULIN DETEMIR (LEVEMIR) 100 UNIT/ML SYR SQ SCH (07:30)
[2021-12-07] MEDS: DOCUSATE 100 MG CAP PO SCH (07:35)
[2021-12-07] MEDS: polyethylene glycoL 3350 17 GM POWD.PACK PO SCH (07:36)
[2021-12-07] MEDS: methylPREDNISolone SOD SUCCI 40 MG/ML 1 ML VIAL IV SCH ×2 (08:09→20:45)
[2021-12-07] MEDS: IPRATROPIUM-ALBUTEROL 3 ML NEB INHALATION SCH ×4 (08:17→19:38)
[2021-12-07 09:00] LABS: HCT 31.5 % (37.2-46.3); MCH 28.7 pg (27.0-32.0); MCHC 31.7 g/dL (32.0-37.0); MCV 90.5 fL (80.0-97.0); Mean Platelet Volume 9.8 fL (9.5-12.2); NRBC Per 100 WBC 0 /100 WBCS (0.0-0.0); Platelet Count 351 X 10*3/uL (140-440); RBC 3.48 X 10*6/uL (4.10-5.20); WBC 17.12 X 10*3/uL (4.50-10.00)
[2021-12-07] MEDS ORDERED: ENOXAPARIN 30 MG/0.3 ML SYRINGE SQ SCH (09:00)
[2021-12-07 09:11] LABS: African American GFR (CKD) 57.3 (60.0-200.0); Anion Gap 10.2 mmol/L (10.00-18.00); BUN/Creat Ratio 33.09 Ratio (12.00-20.00); Blood Urea Nitrogen 36.4 mg/dL (9.0-27.0); Calcium 8.9 mg/dL (8.7-10.3); Carbon Dioxide 25.8 mmol/L (20.0-27.5); Non-African American GFR(CKD) 49.4 (60.0-200.0); Potassium 5.2 mmol/L (3.5-5.5)
[2021-12-07 09:52] LABS: Acanthocytes 2+; Basophils # (M) 0 X 10*3/uL (0.00-0.10); Eosinophils # (M) 0 X 10*3/uL (0.04-0.35); Microcytosis (M) 2+; Monocytes # (M) 0.17 X 10*3/uL (0.20-1.00); Myelocytes % 3 % (0-0); Neutrophils # (M) 15.24 X 10*3/uL (2.00-8.90); Neutrophils % (M) 89 %
[2021-12-07] MEDS ORDERED: FUROSEMIDE 10 MG/ML 4 ML VIAL IV STA (09:53)
--- NOTE | 2021-12-07 10:28 | P.PN ---
Subjective Progress Note Date: 12/07/21 Principal diagnosis: Right renal mass Follow up with patient who is POD #13 from a right robotic partial nephrectomy with extensive lysis of adhesions. Postoperative complications included A. fib with RVR and pneumonia. She is still recovering from pneumonia. She has been transferred out of the intensive care unit. Today she is sitting up in the chair and reports she is not feeling well. She states she is having chest heaviness and is breathing shallow. Her RN, Jasmine, was notified. She is currently on 4LNC. Laparoscopic sites to abdomen are clean and dry. She denies any pain. She is afebrile. She is tolerating a regular diet. Denies nausea or vomiting. She is voiding without difficulty, denies any dysuria or hematuria. Encourage ambulation as tolerated. Objective - Vital Signs Vital signs: Vital Signs Temp 98.1 F 12/07/21 01:39 Pulse 55 L 12/07/21 08:26 Resp 18 12/07/21 08:26 BP 150/73 12/07/21 01:39 Pulse Ox 99 12/07/21 08:17 FiO2 40 12/06/21 16:00 Intake & Output 12/06/21 12/07/21 12/07/21 18:59 06:59 18:59 Intake Total 270 500 Output Total 53 Balance 217 500 Intake: IV 70 0.9 70 Intake, IV Titration 100 Amount Piperacillin-Tazobactam 3 100 .375 gm In Sodium Chloride 0.9% 100 ml @ 25 mls/hr IVPB Q8H [facility] Rx#: [id number] Oral 100 500 Output: Urine 50 Stool 3 Other: Voiding Method Bedside Commode Bedside Commode # Voids 1 2 # Bowel Movements 1 1 - Exam - General -mild respiratory distress - Eyes normal ocular movement - ENT normal nares, normal mucosa - Respiratory normal expansion, tachypneic - Abdomen soft, mild tenderness - Labs CBC & Chem 7: 12/07/21 05:41 12/07/21 05:41 Labs: Abnormal Lab Results - Last 24 Hours (Table) 12/06/21 12/06/21 12/06/21 Range/Units 11:41 16:43 21:11 WBC (4.50-10.00) X 10*3/uL RBC (4.10-5.20) X 10*6/uL Hgb (12.0-15.0) g/dL Hct (37.2-46.3) % MCHC (32.0-37.0) g/dL RDW (11.5-14.5) % Myelocytes % (0-0) % Neutrophils # (Manual) (2.00-8.90) X 10*3/uL Monocytes # (Manual) (0.20-1.00) X 10*3/uL Eosinophils # (Manual) (0.04-0.35) X 10*3/uL BUN (9.0-27.0) mg/dL Est GFR (CKD-EPI)AfAm (60.0-200.0) Est GFR (CKD-EPI)NonAf (60.0-200.0) BUN/Creatinine Ratio (12.00-20.00) Ratio Glucose (70-110) mg/dL POC Glucose (mg/dL) 267 H 325 H 347 H (70-110) mg/dL 12/07/21 12/07/21 12/07/21 Range/Units 05:41 05:41 07:06 WBC 17.12 H (4.50-10.00) X 10*3/uL RBC 3.48 L (4.10-5.20) X 10*6/uL Hgb 10.0 L (12.0-15.0) g/dL Hct 31.5 L (37.2-46.3) % MCHC 31.7 L (32.0-37.0) g/dL RDW 15.0 H (11.5-14.5) % Myelocytes % 3 H (0-0) % Neutrophils # (Manual) 15.24 H (2.00-8.90) X 10*3/uL Monocytes # (Manual) 0.17 L (0.20-1.00) X 10*3/uL Eosinophils # (Manual) 0 L (0.04-0.35) X 10*3/uL BUN 36.4 H (9.0-27.0) mg/dL Est GFR (CKD-EPI)AfAm 57.3 L (60.0-200.0) Est GFR (CKD-EPI)NonAf 49.4 L (60.0-200.0) BUN/Creatinine Ratio 33.09 H (12.00-20.00) Ratio Glucose 265 H (70-110) mg/dL POC Glucose (mg/dL) 246 H (70-110) mg/dL Microbiology - Last 24 Hours (Table) 12/03/21 23:00 Gram Stain - Final Sputum Sputum Culture - Final Assessment and Plan (1) Right renal mass Current Visit: No Status: Acute Code(s): N28.89 - OTHER SPECIFIED DISORDERS OF KIDNEY AND URETER SNOMED Code(s): 099279935 Plan: Continue with medical management. The patient is stable urologically. Impression and plan of care have been directed as dictated by the signing physician. Divine Dorantes nurse practitioner acting as scribe for signing physician. Divine Dorantes [facility] Palliative Care/Urology [email or web address] [email or web address] Email: [email or web address] Time with Patient: Less than 30
[2021-12-07 11:51] LABS: Glucose,Whole Blood 262 mg/dL (70-110)
--- NOTE | 2021-12-07 12:32 | P.PN ---
Subjective Progress Note Date: 12/07/21 This is a 76-year-old female patient of the transferred to the intensive care unit for increased shortness of breath. The patient was found to be in atrial fibrillation with rapid ventricular response and for that reason the patient got transferred to the ICU. The patient is currently postop day #4. The patient underwent a right partial nephrectomy. A CTA of the chest was done yesterday and the patient was found to have no evidence of any pulmonary embolism. Note that the patient was found to have a 3.5 cm right sided renal mass. Based on that, the patient was taken to the operating room for a nephrectomy. The patient is known to be having other comorbid conditions including hypertension, hyperlipidemia diabetes mellitus. The patient is also known to have CAD with previous OH. She has previous chronic catheterization and stenting.. This morning, the patient Got transferred to the intensive care unit the patient developed itchy fibrillation with rapid ventricular response. She is currently on the heart rate of 137, irregular with a blood pressure 113/75. She was placed on 100% nonrebreather facemask and her current pulse ox is 94%. The patient is also having some chest pain this morning. Morning chest pains. The patient is also having chest pain which is sternal, 6 out of 10 in severity. Cardiac enzymes are pending. EKG was done and it showed atrial fibrillation with a rapid ventricular response . I reviewed the EKG there is no significant ST segment changes. There is voltage criteria for LVH. There may be some inferior wall ST segment depression. The chest x-ray also showed some limited bibasilar pulmonary infiltrates along with some cardiomegaly. Lung volumes are essentially small. The patient is currently postoperative day #4. IV fluids are currently at KVO. The patient came in to the ICU and she was given amiodarone bolus initially at a dose of 150 mg of following that she was started on a maintenance of 1 mg/m. I also reviewed the CTA of the chest that was done on 11/27/2021. As mentioned, there is evidence of a pulmonary embolism. There is significant atelectatic changes in the lung bases bilaterally. No reported aspiration. She has an incentive spirometer at the bedside. In terms of her blood work, the patient's white cell count that is a 50 point the XII.5 and a platelet count of 204. Electrolytes from yesterday were all within normal limits with the B 20/20 creatinine 1.09. Sodium is 136. Cardiac enzymes are still pending. The patient is diabetic and she is on a combination of antihypertensive diabetic medication. She is on Dilaudid for pain control. She is also on IV Zosyn that was started 11/26/21 as an empiric antibiotic coverage.the patient had an echocardiogram on 05/05/2021 that showed segmental wall motion abnormalities involving the anterior wall, inferior wall of the septal wall. Ejection fraction was around 45-50%. The LV size was normal. No significant valvular abnormalities were noted. No significant pulmonary hypertension. Her previous cardiac catheterization was done in April 2021. She has undergone stenting to the LAD and subsequently to the circumflex. As such, the patient has stool coronary stents and the patient was receiving dual antiplatelet treatment on outpatient basis. Reevaluated today on 12/05/21, patient remains in the ICU, remains on airvo at 50% FiO2 and 40 L flow. Patient continues to have abnormal chest x-ray showing bilateral pleural effusions left more so than right, possible diastolic congestive heart failure, and significant atelectasis of the left base. Overnight, the patient has been on BiPAP, she is improving but very slowly. Continue his incentive spirometry, and COVID-19 testing came back negative ultrasound of the chest today showed pleural effusion but not large enough to consider thoracentesis safely. WBC count is 9.7 hemoglobin is 10.9 lites are normal renal profile showed a BUN of 23 creatinine 1.16, unchanged compared to the last few days. Chest x-ray continues to show cardiomegaly, small pleural effusions, the chest x-ray itself is consistent with congestive heart failure, superimposed infection is not entirely excluded. More Lasix was given today. Reevaluated today on 12/06/21, patient remains in the ICU, remains on airvo at 40% FiO2 and 40 L flow, patient is feeling better breathing easier, her chest x- ray is showing improvement in her left pleural effusion and atelectasis. Hence I will try the patient on a high flow nasal cannula. And I plan to transfer the patient to regular medical floor today if possible. WBC count is 14.7 hemoglobin is 10.7 and electrolytes are normal creatinine is 1.27, hence I will hold on diuretics today. Patient remains on amlodipine, aspirin, atorvastatin, Plavix, Colace, Lovenox 30 mg subcu daily, Pepcid 20 mg daily, hydrocodone, Dilaudid, insulin subcu, DuoNeb updrafts 4 times a day and when necessary, methylprednisolone 40 mg IV push every 6 hours and I will cut it down to every 8, she is also on metoprolol nitroglycerin and Zosyn The patient is seen today 12/07/2021 in follow-up on the regular medical floor. She is improved and down to 4 L nasal cannula with O2 saturations in the 90s. Chest x-ray reveals [id number] left pleural effusion with prominent adjacent left basilar atelectasis and/or consolidation. Improvement in aeration of the right lung base. Blood and sputum cultures revealed no growth. White count 17.1. Hemoglobin 10.0. Sodium 140. Potassium 5.2. BUN 36. Creatinine 1.1. Glucose 265. She is continued on DuoNeb inhalations, IV Solu-Medrol, IV Zosyn. Lovenox for DVT prophylaxis. Objective - Vital Signs Vital signs: Vital Signs Temp 97.6 F 12/07/21 08:00 Pulse 80 12/07/21 12:03 Resp 18 12/07/21 08:26 BP 159/66 12/07/21 08:00 Pulse Ox 99 12/07/21 08:17 FiO2 40 12/06/21 16:00 Intake & Output 12/06/21 12/07/21 12/07/21 18:59 06:59 18:59 Intake Total 270 500 Output Total 53 Balance 217 500 Intake: IV 70 0.9 70 Intake, IV Titration 100 Amount Piperacillin-Tazobactam 3 100 .375 gm In Sodium Chloride 0.9% 100 ml @ 25 mls/hr IVPB Q8H [facility] Rx#: [id number] Oral 100 500 Output: Urine 50 Stool 3 Other: Voiding Method Bedside Commode Bedside Commode # Voids 1 2 # Bowel Movements 1 1 - Exam GENERAL EXAM: Alert, pleasant 76-year-old, up in a chair at the bedside, on 4 L nasal cannula, comfortable in no apparent distress. HEAD: Normocephalic. EYES: Normal reaction of pupils, equal size. NOSE: Clear with pink turbinates. THROAT: No erythema or exudates. NECK: No masses, no JVD. CHEST: No chest wall deformity. LUNGS: Equal air entry with bilateral scattered rhonchi, crackles in the left lung base. CVS: S1 and S2 normal with no audible murmur, regular rhythm. ABDOMEN: No hepatosplenomegaly, normal bowel sounds, no guarding or rigidity. SPINE: No scoliosis or deformity SKIN: No rashes CENTRAL NERVOUS SYSTEM: No focal deficits, tone is normal in all 4 extremities. EXTREMITIES: There is no peripheral edema. No clubbing, no cyanosis. Peripheral pulses are intact. - Labs CBC & Chem 7: 12/07/21 05:41 12/07/21 05:41 Labs: Abnormal Lab Results - Last 24 Hours (Table) 12/06/21 12/06/21 12/07/21 Range/Units 16:43 21:11 05:41 WBC 17.12 H (4.50-10.00) X 10*3/uL RBC 3.48 L (4.10-5.20) X 10*6/uL Hgb 10.0 L (12.0-15.0) g/dL Hct 31.5 L (37.2-46.3) % MCHC 31.7 L (32.0-37.0) g/dL RDW 15.0 H (11.5-14.5) % Myelocytes % 3 H (0-0) % Neutrophils # (Manual) 15.24 H (2.00-8.90) X 10*3/uL Monocytes # (Manual) 0.17 L (0.20-1.00) X 10*3/uL Eosinophils # (Manual) 0 L (0.04-0.35) X 10*3/uL BUN (9.0-27.0) mg/dL Est GFR (CKD-EPI)AfAm (60.0-200.0) Est GFR (CKD-EPI)NonAf (60.0-200.0) BUN/Creatinine Ratio (12.00-20.00) Ratio Glucose (70-110) mg/dL POC Glucose (mg/dL) 325 H 347 H (70-110) mg/dL 12/07/21 12/07/21 12/07/21 Range/Units 05:41 07:06 11:47 WBC (4.50-10.00) X 10*3/uL RBC (4.10-5.20) X 10*6/uL Hgb (12.0-15.0) g/dL Hct (37.2-46.3) % MCHC (32.0-37.0) g/dL RDW (11.5-14.5) % Myelocytes % (0-0) % Neutrophils # (Manual) (2.00-8.90) X 10*3/uL Monocytes # (Manual) (0.20-1.00) X 10*3/uL Eosinophils # (Manual) (0.04-0.35) X 10*3/uL BUN 36.4 H (9.0-27.0) mg/dL Est GFR (CKD-EPI)AfAm 57.3 L (60.0-200.0) Est GFR (CKD-EPI)NonAf 49.4 L (60.0-200.0) BUN/Creatinine Ratio 33.09 H (12.00-20.00) Ratio Glucose 265 H (70-110) mg/dL POC Glucose (mg/dL) 246 H 262 H (70-110) mg/dL Microbiology - Last 24 Hours (Table) 12/03/21 23:00 Gram Stain - Final Sputum Sputum Culture - Final Assessment and Plan Assessment: Acute hypoxic respiratory failure, multifactorial, mostly related to posto perative atelectasis and consolidation, left pleural effusion and left lower lobe atelectasis, suspect acute systolic congestive heart failure and ejection fraction of 45% Moderate aortic stenosis New-onset atrial fibrillation Acute non-ST elevation myocardial infarction History of nephrectomy/renal mass postoperative day #12 Perinephric edema and suspected hemorrhage in the perinephric area History of underlying coronary artery disease and previous stent of circumflex and LAD Type 2 diabetes Benign essential hypertension Acute kidney injury, improved with creatinine 1.1 Lang: The patient was seen and evaluated Chest x-ray, labs and medications reviewed Give Lasix 40 mg IVP 1 Continue bronchodilators, steroids Continue antibiotics Titrate the FiO2 as tolerated We will continue to follow I have personally seen and examined the patient, performed the documentation and the assessment and plan as written. Number of minutes spent on the visit: 10.
[2021-12-07 16:45] LABS: Glucose,Whole Blood 334 mg/dL (70-110)
[2021-12-07 20:13] LABS: Glucose,Whole Blood 332 mg/dL (70-110)
[2021-12-07] MEDS: ATORVASTATIN 80 MG TAB PO SCH (20:44)
--- NOTE | 2021-12-07 22:40 | P.PN ---
Subjective This is a 76 year old female, post operative day #4 right partial nephrectomy for known history of right renal mass. Patients hospital stay complicated by shortness of breath and hypoxia, with chest pain. A team was called this morning and patient has been transferred to intensive care unit for close monitoring. Found to be in atrial fibrillation with rapid ventricular rate and received amiodarone bolus and continues on amiodarone infusion, pending cardiology consultation. Patient also received a dose of IV lasix 40 mg today. D-Dimer elevated at 0.96, chest CTA is negative for pulmonary embolism. Chest xray showing patchy bibasilar infiltrates. Continues on bronchodilators, empiric antibiotics with IV zosyn. Echocardiogram completed in April of this year shows an EF of 45-50% with LV wall hypokinesis, mild MR, mild TR. Labs reviewed today showing a white count of 13.2, sodium 136, beyond 20, creatinine 1.25. He does have troponin elevation at 1.400. Liver enzymes are also elevated, proBNP 662. Covid negative. He remains afebrile, heart rate 140 8H fibrillation, blood pressure 101/73, patient is on a non rebreather at 15 L. Patient is on a combination of amlodipine/benazepril daily which we will hold at this time secondary to low normal BPs. 11/29/2021 Patient is evaluated today in intensive care unit. Converted to normal sinus rhythm yesterday afternoon and amiodarone has been discontinued. Urology recommending for patient to hold anticoagulation currently and eliquis has been stopped at this time. Troponins have been trended and increased up to 41.000. Cardiology following patient. Echocardiogram has been ordered. Patient had chest xray this morning showing basilar pneumonia with findings similar to previous exam with associated effusion. Follow up abdomen chest CT showing possible perinephric hemorrhage/hematoma. with possible additional areas of strandy hemorrhage in the right pericaval region. Also, possible small focal hematoma vs. metastatic deposit in lateral right perinephric space. There is possible infectious or aspiration pneumonitis with trace right pleural effusion. No pericardial effusion. There is coronary artery disease evident. Patient continues on BiPAP with FiO2 of 88%, afebrile, maintaining normal sinus rhythm heart rate 82, blood pressure 106/59. Continues on IV zosyn. Labs reviewed showing BUN 30, creatinine 1.53, AST 204, ALT 122, alk phos 152 which have increased. 11/30/2021 Patient continues to be monitored closely in intensive care unit. She has been transitioned from BiPAP onto high flow airvo oxygen support with 55/80. Had low grade fever 99.8 around midnight. Today she is sitting up in chair, reports having cough with occasional sputum production. Reports breathing better, no chest pain. Has not had BM, she does not want any additional stool softeners besides colace. Chest xray today showing possible developing pulmonary vascular congestion, with developing patchy edema/infiltrate right lower lung and consolidation left base. Continues on IV zosyn. Procalcitonin level today 0.48. Creatinine today 1.58. Has been started on baby aspirin. Urology recommending to hold off on anticoagulation due to risk for bleeding. She is postoperative day #6 right partial nephrectomy. 12/01/2021 Patient is evaluated in the intensive care unit. Patient is postoperative day #7 right partial nephrectomy. She has been resumed on plavix and also started on lovenox today. Continues on airvo oxygen support 50/50 with oxygen saturations of 93%. Afebrile overnight. Blood cultures are currently negative. Continues on IV antibiotics with IV zosyn empirically. She has not had a BM postoperatively does have increased bowel sounds today. She is agreeable to miralax in addition to colace. Labs today showing sodium level of 135, potassium 4.1, BUN 35, creatinine 1.33, glucose in the 100s. Procalcitonin level today 0.41. proBNP was checked at 2790. Echocardiogram showing EF 45% with moderate LVH, mild MR, Moderate aortic stenosis. 12/02/2021 Patient status post right nephrectomy for kidney mass with pathology showing renal cell carcinoma with clear margins, patient does not have a Porter catheter and sheaths. Without problem and urologist already followed up with the patient. Patient also with new onset A. fib and her rate is controlled, no anticoagulation for her recent surgery. She is on prophylactic Lovenox Also with evidence of bilateral pneumonia, left more than right lower lobe. Currently covered with Zosyn. FiO2 is 50% with global 45 L per minute and gradually improving. 12/03/2021 Patient looks similar to yesterday sitting in chair with air for nasal cannula with a similar to yesterday with flow rate 42-year-old FiO2 50% patient is still tachypneic and chest x-ray showed evidence of CHF Heart A. fib heart rate looks controlled. With no chest pain However patient mainly has extensive consolidation of lung secondary to infection and is currently on Zosyn. Also she is on aspirin and Plavix and Lovenox 12/05/2019 Patient breathing pattern with same as yesterday. She still on flow rate of 40 L per minute and FiO2 of 50% over the last 3 days with no much improvement. She is currently on Zosyn for left more right lower lobe pneumonia, However there is some evidence of fluid overload and she visits one-time dose of Lasix 40 mg also IV Solu-Medrol of 40 mg every 6 or started today. Patient is also on aspirin and Plavix and Lovenox lactic dose. Echocardiogram showed ejection fraction of 45% with moderate aortic stenosis and LVH. Creatinine 1.1 12/05/2021 Patient sitting in chair, she says her breathing is slightly better, her oxygen requirement also slightly went down to 40/40%. Patient still tachypneic However she still distended tachypneic and she has evidence of CHF on the chest x-ray or bone morning and not excluded, also chest x-ray and ultrasound showing small left pleural effusion that is been treated with IV Lasix. Also patient continued Zosyn. Creatinine is stable at 1.1. Her heart rate is A. fib with rate controlled 12/06/2021 Patient continued to improve significantly her oxygen requirement dropped to 6 L per minute Patient continued on Solu-Medrol 40 mg and Zosy Eventually patient transferred out of the ICU to the medical genital floor Patient insulin dose was adjusted. Keep monitoring glucose 12/07/2021 Patient continued to improve every day and her oxygen requirements and to 4 L/m today While she remains on Zosyn and Solu-Medrol Also patient received 1 dose of IV Lasix today. Her glucose remains uncontrolled while she is on Levemir 15 units and NovoLog 10 units with meals. Amaryl added today. Continue close glucose monitoring Objective - Vital Signs Vital signs: Vital Signs Temp 97.6 F 12/07/21 08:00 Pulse 80 12/07/21 12:03 Resp 18 12/07/21 08:26 BP 159/66 12/07/21 08:00 Pulse Ox 99 12/07/21 08:17 FiO2 40 12/06/21 16:00 Intake & Output 12/06/21 12/07/21 12/07/21 18:59 06:59 18:59 Intake Total 270 500 Output Total 53 Balance 217 500 Intake: IV 70 0.9 70 Intake, IV Titration 100 Amount Piperacillin-Tazobactam 3 100 .375 gm In Sodium Chloride 0.9% 100 ml @ 25 mls/hr IVPB Q8H [facility] Rx#: [id number] Oral 100 500 Output: Urine 50 Stool 3 Other: Voiding Method Bedside Commode Bedside Commode # Voids 1 2 # Bowel Movements 1 1 - Exam GENERAL: The patient is alert and oriented x3, not in any acute distress. Well d eveloped, well nourished. HEENT: Pupils are round and equally reacting to light. EOMI. No scleral icterus. No conjunctival pallor. Normocephalic, atraumatic. No pharyngeal erythema. No thyromegaly. CARDIOVASCULAR: S1 and S2 present. No murmurs, rubs, or gallops. PULMONARY: Chest is clear to auscultation, no wheezing or crackles. ABDOMEN: Soft, nontender, nondistended, normoactive bowel sounds. No palpable organomegaly. MUSCULOSKELETAL: No joint swelling or deformity. EXTREMITIES: No cyanosis, clubbing, or pedal edema. NEUROLOGICAL: Gross neurological examination did not reveal any focal deficits. SKIN: No rashes. no petechiae. - Labs CBC & Chem 7: 12/07/21 05:41 12/07/21 05:41 Labs: Abnormal Lab Results - Last 24 Hours (Table) 12/06/21 12/06/21 12/07/21 Range/Units 16:43 21:11 05:41 WBC 17.12 H (4.50-10.00) X 10*3/uL RBC 3.48 L (4.10-5.20) X 10*6/uL Hgb 10.0 L (12.0-15.0) g/dL Hct 31.5 L (37.2-46.3) % MCHC 31.7 L (32.0-37.0) g/dL RDW 15.0 H (11.5-14.5) % Myelocytes % 3 H (0-0) % Neutrophils # (Manual) 15.24 H (2.00-8.90) X 10*3/uL Monocytes # (Manual) 0.17 L (0.20-1.00) X 10*3/uL Eosinophils # (Manual) 0 L (0.04-0.35) X 10*3/uL BUN (9.0-27.0) mg/dL Est GFR (CKD-EPI)AfAm (60.0-200.0) Est GFR (CKD-EPI)NonAf (60.0-200.0) BUN/Creatinine Ratio (12.00-20.00) Ratio Glucose (70-110) mg/dL POC Glucose (mg/dL) 325 H 347 H (70-110) mg/dL 12/07/21 12/07/21 12/07/21 Range/Units 05:41 07:06 11:47 WBC (4.50-10.00) X 10*3/uL RBC (4.10-5.20) X 10*6/uL Hgb (12.0-15.0) g/dL Hct (37.2-46.3) % MCHC (32.0-37.0) g/dL RDW (11.5-14.5) % Myelocytes % (0-0) % Neutrophils # (Manual) (2.00-8.90) X 10*3/uL Monocytes # (Manual) (0.20-1.00) X 10*3/uL Eosinophils # (Manual) (0.04-0.35) X 10*3/uL BUN 36.4 H (9.0-27.0) mg/dL Est GFR (CKD-EPI)AfAm 57.3 L (60.0-200.0) Est GFR (CKD-EPI)NonAf 49.4 L (60.0-200.0) BUN/Creatinine Ratio 33.09 H (12.00-20.00) Ratio Glucose 265 H (70-110) mg/dL POC Glucose (mg/dL) 246 H 262 H (70-110) mg/dL Assessment and Plan Assessment: Acute hypoxic respiratory failure secondary to possible bilateral pneumonia currently on airvo oxygen support Acute hypoxic respiratory failure secondary to above New-onset atrial fibrillation with rapid ventricular rate, converted to normal sinus rhythm. Troponin elevation secondary to type 2 OK, managed medically Status post robotic partial right nephrectomy with pathology: Renal cell carcinoma with clear margin Acute renal injury improving Elevated liver enzymes Diabetes mellitus type 2 Hypertension currently blood pressure is 100 systolic Hyperlipidemia History coronary artery disease status post cardiac stents in the past Plan: Patient is being monitored in intensive care unit currently on Airvo 45/50 Continue empiric antibiotic coverage, currently on Zosyn and bronchodilators Systemic steroids Hold amlodipine/benazepril combination Continue daily stool softener, miralax added today Currently on aspirin/plavix combination No further cardiac workup. Urologist of the case GI Prophylaxis:Pepcid DVT Prophylaxis: Lovenox Full Code
[2021-12-07] MEDS ORDERED: GLIMEPIRIDE 1 MG TAB PO SCH (22:45)
[2021-12-07] MEDS ORDERED: GLIMEPIRIDE 1 MG TAB PO ONE (22:50)
[2021-12-08] MEDS: PIPERACILLIN-TAZOBACTAM 3.375 GM in SODIUM CHLORIDE 0.9% 100 ML IVPB SCH ×3 (04:57→20:11)
[2021-12-08 06:49] LABS: Glucose,Whole Blood 225 mg/dL (70-110)
--- NOTE | 2021-12-08 06:59 | XR ---
EXAMINATION TYPE: XR chest 1V portable DATE OF EXAM: 12/08/2021 CLINICAL HISTORY: Difficulty breathing progress study. TECHNIQUE: Single AP portable upright view of the chest is obtained. COMPARISON: Chest x-ray from one day earlier and older studies. FINDINGS: Persistent small left pleural effusion and left basilar opacity. Patchy right basilar opac ity. Upper lungs remain clear without pneumothorax. Cardiac silhouette size stable and upper limits o f normal. Degenerative change bilateral glenohumeral joints redemonstrated. IMPRESSION: Stable small left pleural effusion and more prominent left basilar atelectasis and/or con solidation. Patchy right basilar acute infiltrate and/or atelectasis redemonstrated. No significant c hange from one day earlier.
[2021-12-08] MEDS: INSULIN DETEMIR (LEVEMIR) 100 UNIT/ML SYR SQ SCH (07:57)
[2021-12-08] MEDS: INSULIN ASPART (NovoLOG) 100 UNIT/ML VIAL SQ SCH ×8 (07:58→22:29)
[2021-12-08] MEDS: GLIMEPIRIDE 1 MG TAB PO SCH (08:01)
[2021-12-08] MEDS: IPRATROPIUM-ALBUTEROL 3 ML NEB INHALATION SCH ×4 (08:17→19:22)
--- NOTE | 2021-12-08 09:07 | CDI ---
Documentation Clarification Form Date: 12/08/2021 08:45:45 AM From: Kellen Graves CCS, CCDS Admit Date: 11/28/2021 07:38:00 AM Patient Name: Jessica Perez Visit Number: [id number] Discharge Date: ATTENTION: The Clinical Documentation Specialists (CDI) and [facility] Coding Staff appreciate your assistance in clarifying documentation. Please respond to the clarification below the line at the bottom and electronically sign. The CDI & [facility] Coding staff will review the response and follow-up if needed. Please note: Queries are made part of the Legal Health Record. If you have any questions, please contact the author of this message via ITS. Dr. Dayna Carvajal: Postoperative atelectasis and consolidation is documented in the 12/05 Pulmonary Progress Note and in subsequent Progress Notes, the patient is status post Right Robotic Partial Nephrectomy with Extensive Lysis of Adhesions on 11/24. Additional clarification is requested regarding the relationship, if any, that exists between the diagnosis and the procedure. Patients Admitting Diagnosis 11/24: Right Renal Mass Post-Operative Diagnosis: Same with Pathology: Clear Cell Renal Carcinoma Procedure performed 11/24: Right robotic partial nephrectomy, extensive lysis of adhesions, intraoperative ultrasound. On 11/28 the patient was admitted to ICU with increased SOB, found to be in Atrial Fibrillation w/RVR. History/Risk Factors per the Medical Consult 11/26: Diabetes Mellitus, Hypertension and Hyperlipidemia. Clinical Indicators: Initially presented on 11/24 for above procedure, admitted on 11/28 with Atrial Fibrillation. Per the 11/28 Pulmonary Consult, the patient was in Acute Hypoxic Respiratory Failure and was developing lower lobe pulmonary infiltrates. 11/28 VS: T 97.7, P 152 (irregular), R 24, 31 (cough, sob, shallow, tachypnea), 36; BP 102/80, PO 90 9Lnc - 92 15% nrb. 11/28 CXR: Patchy bibasilar infiltrates redomonstrated. 11/28 Repeat CXR: Patchy bibasilar airspace opacities redemonstrated with more consolidative appearance on the left. Findings concerning for pneumonia. 12/02 CXR: Mild infiltrates at the right base. Consider pneumonia as well as atelectasis or atypical pulmonary edema. 12/07 CXR: Numerous small to moderate left pleural effusion with prominent adjacent left basilar atelectasis and/or consolidation. Treatment 11/28: O2 9L - nrb, IV Amiodarone 200 mls @ 33.333 ml/hr, IV Dextrose/Water w/Amiodarone 103 mls @ 618 mls/hr q10M, IV lasix 40 mg x1, IV Dextrose 25 ml - 50 ml/prn, IV Dextrose/Water/w/Amiodarone 256 mls @ 128 mls/hr q2H, po Eliquis 5 mg BID, IV Amiodarone 250 mls @ 16.667 mls/hr q15H, IV Lasix 40 mg x1. 12/07: IV Lasix 40 mg x1. What relationship, if any, exists between the diagnosis of Postoperative Atelectasis and the procedure: [ ] Postoperative Atelectasis is a complication of surgical procedure [ x ] Postoperative Atelectasis is an expected outcome of the surgical procedure [ ] Postoperative Atelectasis is related to patients co-morbid condition(s), please specify: and is not a complication of the procedure [ ] Postoperative Atelectasis has been ruled out [ ] Other please specify: [ ] Unable to determine (Template Last Revised: April 2020) MTDD
[2021-12-08 09:11] LABS: HCT 30.3 % (37.2-46.3); HGB 9.8 g/dL (12.0-15.0); MCH 28.8 pg (27.0-32.0); MCHC 32.3 g/dL (32.0-37.0); MCV 89.1 fL (80.0-97.0); NRBC Per 100 WBC 0 /100 WBCS (0.0-0.0); Platelet Count 362 X 10*3/uL (140-440); RDW 15.1 % (11.5-14.5); WBC 17.28 X 10*3/uL (4.50-10.00)
[2021-12-08 09:21] LABS: African American GFR (CKD) 64.3 (60.0-200.0); BUN/Creat Ratio 34.8 Ratio (12.00-20.00); Blood Urea Nitrogen 34.8 mg/dL (9.0-27.0); Calcium 8.8 mg/dL (8.7-10.3); Magnesium 2.4 mg/dL (1.5-2.4); Non-African American GFR(CKD) 55.5 (60.0-200.0); Potassium 4.6 mmol/L (3.5-5.5)
[2021-12-08] MEDS ORDERED: FUROSEMIDE 10 MG/ML 4 ML VIAL IV STA (09:27)
[2021-12-08] MEDS: ASPIRIN 81 MG PO SCH (10:49)
[2021-12-08] MEDS: CLOPIDOGREL 75 MG TAB PO SCH (10:49)
[2021-12-08] MEDS: amLODIPine 10 MG TAB PO SCH (10:49)
[2021-12-08] MEDS: methylPREDNISolone SOD SUCCI 40 MG/ML 1 ML VIAL IV SCH ×2 (10:50→20:10)
[2021-12-08] MEDS: ENOXAPARIN 40 MG/0.4 ML SYRINGE SQ SCH (11:11)
[2021-12-08] MEDS: FAMOTIDINE 20 MG TAB PO SCH (11:11)
[2021-12-08] MEDS: DOCUSATE 100 MG CAP PO SCH (11:11)
[2021-12-08] MEDS: METOPROLOL TARTRATE 12.5 MG TAB PO SCH ×2 (11:12→20:10)
[2021-12-08] MEDS: polyethylene glycoL 3350 17 GM POWD.PACK PO SCH (11:12)
[2021-12-08 11:33] LABS: Glucose,Whole Blood 200 mg/dL (70-110)
[2021-12-08 11:46] LABS: Basophils # (M) 0 X 10*3/uL (0.00-0.10); Eosinophils # (M) 0.17 X 10*3/uL (0.04-0.35); Lymphocytes # (M) 1.56 X 10*3/uL (0.90-5.00); Monocytes # (M) 0.69 X 10*3/uL (0.20-1.00); Myelocytes % 3 % (0-0); Neutrophils # (M) 14.34 X 10*3/uL (2.00-8.90); Neutrophils % (M) 83 %; RBC Morphology NORMAL
--- NOTE | 2021-12-08 12:07 | P.PN ---
Subjective Progress Note Date: 12/08/21 This is a 76-year-old female patient of the transferred to the intensive care unit for increased shortness of breath. The patient was found to be in atrial fibrillation with rapid ventricular response and for that reason the patient got transferred to the ICU. The patient is currently postop day #4. The patient underwent a right partial nephrectomy. A CTA of the chest was done yesterday and the patient was found to have no evidence of any pulmonary embolism. Note that the patient was found to have a 3.5 cm right sided renal mass. Based on that, the patient was taken to the operating room for a nephrectomy. The patient is known to be having other comorbid conditions including hypertension, hyperlipidemia diabetes mellitus. The patient is also known to have CAD with previous CT. She has previous chronic catheterization and stenting.. This morning, the patient Got transferred to the intensive care unit the patient developed itchy fibrillation with rapid ventricular response. She is currently on the heart rate of 137, irregular with a blood pressure 113/75. She was placed on 100% nonrebreather facemask and her current pulse ox is 94%. The patient is also having some chest pain this morning. Morning chest pains. The patient is also having chest pain which is sternal, 6 out of 10 in severity. Cardiac enzymes are pending. EKG was done and it showed atrial fibrillation with a rapid ventricular response . I reviewed the EKG there is no significant ST segment changes. There is voltage criteria for LVH. There may be some inferior wall ST segment depression. The chest x-ray also showed some limited bibasilar pulmonary infiltrates along with some cardiomegaly. Lung volumes are essentially small. The patient is currently postoperative day #4. IV fluids are currently at KVO. The patient came in to the ICU and she was given amiodarone bolus initially at a dose of 150 mg of following that she was started on a maintenance of 1 mg/m. I also reviewed the CTA of the chest that was done on 11/27/2021. As mentioned, there is evidence of a pulmonary embolism. There is significant atelectatic changes in the lung bases bilaterally. No reported aspiration. She has an incentive spirometer at the bedside. In terms of her blood work, the patient's white cell count that is a 50 point the XII.5 and a platelet count of 204. Electrolytes from yesterday were all within normal limits with the B 20/20 creatinine 1.09. Sodium is 136. Cardiac enzymes are still pending. The patient is diabetic and she is on a combination of antihypertensive diabetic medication. She is on Dilaudid for pain control. She is also on IV Zosyn that was started 11/26/21 as an empiric antibiotic coverage.the patient had an echocardiogram on 05/05/2021 that showed segmental wall motion abnormalities involving the anterior wall, inferior wall of the septal wall. Ejection fraction was around 45-50%. The LV size was normal. No significant valvular abnormalities were noted. No significant pulmonary hypertension. Her previous cardiac catheterization was done in April 2021. She has undergone stenting to the LAD and subsequently to the circumflex. As such, the patient has stool coronary stents and the patient was receiving dual antiplatelet treatment on outpatient basis. Reevaluated today on 12/05/21, patient remains in the ICU, remains on airvo at 50% FiO2 and 40 L flow. Patient continues to have abnormal chest x-ray showing bilateral pleural effusions left more so than right, possible diastolic congestive heart failure, and significant atelectasis of the left base. Overnight, the patient has been on BiPAP, she is improving but very slowly. Continue his incentive spirometry, and COVID-19 testing came back negative ultrasound of the chest today showed pleural effusion but not large enough to consider thoracentesis safely. WBC count is 9.7 hemoglobin is 10.9 lites are normal renal profile showed a BUN of 23 creatinine 1.16, unchanged compared to the last few days. Chest x-ray continues to show cardiomegaly, small pleural effusions, the chest x-ray itself is consistent with congestive heart failure, superimposed infection is not entirely excluded. More Lasix was given today. Reevaluated today on 12/06/21, patient remains in the ICU, remains on airvo at 40% FiO2 and 40 L flow, patient is feeling better breathing easier, her chest x- ray is showing improvement in her left pleural effusion and atelectasis. Hence I will try the patient on a high flow nasal cannula. And I plan to transfer the patient to regular medical floor today if possible. WBC count is 14.7 hemoglobin is 10.7 and electrolytes are normal creatinine is 1.27, hence I will hold on diuretics today. Patient remains on amlodipine, aspirin, atorvastatin, Plavix, Colace, Lovenox 30 mg subcu daily, Pepcid 20 mg daily, hydrocodone, Dilaudid, insulin subcu, DuoNeb updrafts 4 times a day and when necessary, methylprednisolone 40 mg IV push every 6 hours and I will cut it down to every 8, she is also on metoprolol nitroglycerin and Zosyn The patient is seen today 12/07/2021 in follow-up on the regular medical floor. She is improved and down to 4 L nasal cannula with O2 saturations in the 90s. Chest x-ray reveals [id number] left pleural effusion with prominent adjacent left basilar atelectasis and/or consolidation. Improvement in aeration of the right lung base. Blood and sputum cultures revealed no growth. White count 17.1. Hemoglobin 10.0. Sodium 140. Potassium 5.2. BUN 36. Creatinine 1.1. Glucose 265. She is continued on DuoNeb inhalations, IV Solu-Medrol, IV Zosyn. Lovenox for DVT prophylaxis. The patient is seen today 12/08/2021 in follow-up on the regular medical floor. She is currently sitting up in a chair at the bedside. Awake and alert in no acute distress. She is breathing easier today. Maintaining good O2 saturations in the 90s on 4 L/m per nasal cannula. Chest x-ray with stable small left pleural effusion and left basilar atelectasis. Right basilar atelectasis noted as well. Blood culture reveals no growth. Sputum culture revealed no growth. White count 17.2. Hemoglobin 9.8. Sodium 139. Potassium 4.6. BUN 34. C reatinine 1.0. Glucose 222. She is continued on DuoNeb inhalations, IV Solu- Medrol, IV Zosyn. Lovenox for DVT prophylaxis. She was given additional Lasix 40 mg IVP 1 yesterday with good urine output. Objective - Vital Signs Vital signs: Vital Signs Temp 97.8 F 12/08/21 06:45 Pulse 80 12/08/21 11:23 Resp 16 12/08/21 06:45 BP 150/69 12/08/21 06:45 Pulse Ox 98 12/08/21 06:45 FiO2 40 12/06/21 16:00 Intake & Output 10/19/22 10/20/22 10/20/22 18:59 06:59 18:59 Output Total 1 Balance -1 Output: Stool 1 Other: Voiding Method Bedside Commode Bedside Commode # Voids 6 2 # Bowel Movements 4 - Exam GENERAL EXAM: Alert, very pleasant 76-year-old female, up in a chair at the bedside, on 4 L nasal cannula, comfortable in no apparent distress. HEAD: Normocephalic. EYES: Normal reaction of pupils, equal size. NOSE: Clear with pink turbinates. THROAT: No erythema or exudates. NECK: No masses, no JVD. CHEST: No chest wall deformity. LUNGS: Equal air entry with crackles in the left lung base. CVS: S1 and S2 normal with no audible murmur, regular rhythm. ABDOMEN: No hepatosplenomegaly, normal bowel sounds, no guarding or rigidity. SPINE: No scoliosis or deformity SKIN: No rashes CENTRAL NERVOUS SYSTEM: No focal deficits, tone is normal in all 4 extremities. EXTREMITIES: There is no peripheral edema. No clubbing, no cyanosis. Peripheral pulses are intact. - Labs CBC & Chem 7: 12/08/21 06:01 12/08/21 06:01 Labs: Abnormal Lab Results - Last 24 Hours (Table) 12/07/21 12/07/21 12/08/21 Range/Units 16:44 20:10 06:01 WBC 17.28 H (4.50-10.00) X 10*3/uL RBC 3.40 L (4.10-5.20) X 10*6/uL Hgb 9.8 L (12.0-15.0) g/dL Hct 30.3 L (37.2-46.3) % RDW 15.1 H (11.5-14.5) % Myelocytes % 3 H (0-0) % Neutrophils # (Manual) 14.34 H (2.00-8.90) X 10*3/uL BUN (9.0-27.0) mg/dL Est GFR (CKD-EPI)NonAf (60.0-200.0) BUN/Creatinine Ratio (12.00-20.00) Ratio Glucose (70-110) mg/dL POC Glucose (mg/dL) 334 H 332 H (70-110) mg/dL 12/08/21 12/08/21 12/08/21 Range/Units 06:01 06:47 11:32 WBC (4.50-10.00) X 10*3/uL RBC (4.10-5.20) X 10*6/uL Hgb (12.0-15.0) g/dL Hct (37.2-46.3) % RDW (11.5-14.5) % Myelocytes % (0-0) % Neutrophils # (Manual) (2.00-8.90) X 10*3/uL BUN 34.8 H (9.0-27.0) mg/dL Est GFR (CKD-EPI)NonAf 55.5 L (60.0-200.0) BUN/Creatinine Ratio 34.80 H (12.00-20.00) Ratio Glucose 222 H (70-110) mg/dL POC Glucose (mg/dL) 225 H 200 H (70-110) mg/dL Assessment and Plan Assessment: Acute hypoxic respiratory failure, multifactorial, mostly related to postoperative atelectasis and consolidation, left pleural effusion and left lower lobe atelectasis, suspect acute systolic congestive heart failure and ejection fraction of 45% Atelectasis is an expected outcome of surgery, continues to work well with the incentive spirometer, improving on 4 L nasal cannula Moderate aortic stenosis New-onset atrial fibrillation Acute non-ST elevation myocardial infarction History of nephrectomy/renal mass postoperative day #13 Perinephric edema and suspected hemorrhage in the perinephric area History of underlying coronary artery disease and previous stent of circumflex and LAD Type 2 diabetes Benign essential hypertension Acute kidney injury, improved with creatinine 1.0 Lang: The patient was seen and evaluated Chest x-ray, labs and medications reviewed Give Lasix 40 mg IVP 1 Titrate the FiO2 as tolerated Home once cleared by nephrology We will continue to follow I have personally seen and examined the patient, performed the documentation and the assessment and plan as written. Number of minutes spent on the visit: 10.
--- NOTE | 2021-12-08 15:49 | P.PN ---
Subjective Progress Note Date: 12/08/21 Principal diagnosis: Right renal mass Follow up with patient who is POD #14 from a right robotic partial nephrectomy with extensive lysis of adhesions. Postoperative complications included A. fib with RVR and pneumonia. She is still recovering from pneumonia. She has been transferred out of the intensive care unit. She is currently on 4LNC. she states she is feeling better today. Laparoscopic sites to abdomen are clean and dry. She denies any pain. She is afebrile. She is tolerating a regular diet. Denies nausea or vomiting. She is voiding without difficulty, denies any dysuria or hematuria. Encourage ambulation as tolerated. Objective - Vital Signs Vital signs: Vital Signs Temp 97.8 F 12/08/21 13:46 Pulse 88 12/08/21 15:33 Resp 17 12/08/21 13:46 BP 110/64 12/08/21 13:46 Pulse Ox 93 L 12/08/21 13:46 FiO2 40 12/06/21 16:00 Intake & Output 12/07/21 12/08/21 12/08/21 18:59 06:59 18:59 Output Total 1 Balance -1 Output: Stool 1 Other: Voiding Method Bedside Commode Bedside Commode Bedside Commode # Voids 6 2 # Bowel Movements 4 - Exam - General -no distress - Eyes normal ocular movement - ENT normal nares, normal mucosa - Respiratory normal expansion, non-labored - Abdomen soft, no tenderness - Labs CBC & Chem 7: 12/08/21 06:01 12/08/21 06:01 Labs: Abnormal Lab Results - Last 24 Hours (Table) 12/07/21 12/07/21 12/08/21 Range/Units 16:44 20:10 06:01 WBC 17.28 H (4.50-10.00) X 10*3/uL RBC 3.40 L (4.10-5.20) X 10*6/uL Hgb 9.8 L (12.0-15.0) g/dL Hct 30.3 L (37.2-46.3) % RDW 15.1 H (11.5-14.5) % Myelocytes % 3 H (0-0) % Neutrophils # (Manual) 14.34 H (2.00-8.90) X 10*3/uL BUN (9.0-27.0) mg/dL Est GFR (CKD-EPI)NonAf (60.0-200.0) BUN/Creatinine Ratio (12.00-20.00) Ratio Glucose (70-110) mg/dL POC Glucose (mg/dL) 334 H 332 H (70-110) mg/dL 12/08/21 12/08/21 12/08/21 Range/Units 06:01 06:47 11:32 WBC (4.50-10.00) X 10*3/uL RBC (4.10-5.20) X 10*6/uL Hgb (12.0-15.0) g/dL Hct (37.2-46.3) % RDW (11.5-14.5) % Myelocytes % (0-0) % Neutrophils # (Manual) (2.00-8.90) X 10*3/uL BUN 34.8 H (9.0-27.0) mg/dL Est GFR (CKD-EPI)NonAf 55.5 L (60.0-200.0) BUN/Creatinine Ratio 34.80 H (12.00-20.00) Ratio Glucose 222 H (70-110) mg/dL POC Glucose (mg/dL) 225 H 200 H (70-110) mg/dL Assessment and Plan (1) Right renal mass Current Visit: No Status: Acute Code(s): N28.89 - OTHER SPECIFIED DISORDERS OF KIDNEY AND URETER SNOMED Code(s): 463265990 Plan: Continue with medical management. The patient is stable urologically. Impression and plan of care have been directed as dictated by the signing physician. Divine Dorantes nurse practitioner acting as scribe for signing physician. Divine Dorantes [facility] Palliative Care/Urology Spectralink [phone] Email: [email or web address] I personally performed and participated in history, physical exam and decision making. I agree with the assessment and plan of the [employer] Time with Patient: Less than 30
[2021-12-08 16:27] LABS: Glucose,Whole Blood 271 mg/dL (70-110)
--- NOTE | 2021-12-08 18:06 | P.PN ---
Subjective This is a 76 year old female, post operative day #4 right partial nephrectomy for known history of right renal mass. Patients hospital stay complicated by shortness of breath and hypoxia, with chest pain. A team was called this morning and patient has been transferred to intensive care unit for close monitoring. Found to be in atrial fibrillation with rapid ventricular rate and received amiodarone bolus and continues on amiodarone infusion, pending cardiology consultation. Patient also received a dose of IV lasix 40 mg today. D-Dimer elevated at 0.96, chest CTA is negative for pulmonary embolism. Chest xray showing patchy bibasilar infiltrates. Continues on bronchodilators, empiric antibiotics with IV zosyn. Echocardiogram completed in April of this year shows an EF of 45-50% with LV wall hypokinesis, mild MR, mild TR. Labs reviewed today showing a white count of 13.2, sodium 136, beyond 20, creatinine 1.25. He does have troponin elevation at 1.400. Liver enzymes are also elevated, proBNP 662. Covid negative. He remains afebrile, heart rate 140 8H fibrillation, blood pressure 101/73, patient is on a non rebreather at 15 L. Patient is on a combination of amlodipine/benazepril daily which we will hold at this time secondary to low normal BPs. 11/29/2021 Patient is evaluated today in intensive care unit. Converted to normal sinus rhythm yesterday afternoon and amiodarone has been discontinued. Urology recommending for patient to hold anticoagulation currently and eliquis has been stopped at this time. Troponins have been trended and increased up to 41.000. Cardiology following patient. Echocardiogram has been ordered. Patient had chest xray this morning showing basilar pneumonia with findings similar to previous exam with associated effusion. Follow up abdomen chest CT showing possible perinephric hemorrhage/hematoma. with possible additional areas of strandy hemorrhage in the right pericaval region. Also, possible small focal hematoma vs. metastatic deposit in lateral right perinephric space. There is possible infectious or aspiration pneumonitis with trace right pleural effusion. No pericardial effusion. There is coronary artery disease evident. Patient continues on BiPAP with FiO2 of 88%, afebrile, maintaining normal sinus rhythm heart rate 82, blood pressure 106/59. Continues on IV zosyn. Labs reviewed showing BUN 30, creatinine 1.53, AST 204, ALT 122, alk phos 152 which have increased. 11/30/2021 Patient continues to be monitored closely in intensive care unit. She has been transitioned from BiPAP onto high flow airvo oxygen support with 55/80. Had low grade fever 99.8 around midnight. Today she is sitting up in chair, reports having cough with occasional sputum production. Reports breathing better, no chest pain. Has not had BM, she does not want any additional stool softeners besides colace. Chest xray today showing possible developing pulmonary vascular congestion, with developing patchy edema/infiltrate right lower lung and consolidation left base. Continues on IV zosyn. Procalcitonin level today 0.48. Creatinine today 1.58. Has been started on baby aspirin. Urology recommending to hold off on anticoagulation due to risk for bleeding. She is postoperative day #6 right partial nephrectomy. 12/01/2021 Patient is evaluated in the intensive care unit. Patient is postoperative day #7 right partial nephrectomy. She has been resumed on plavix and also started on lovenox today. Continues on airvo oxygen support 50/50 with oxygen saturations of 93%. Afebrile overnight. Blood cultures are currently negative. Continues on IV antibiotics with IV zosyn empirically. She has not had a BM postoperatively does have increased bowel sounds today. She is agreeable to miralax in addition to colace. Labs today showing sodium level of 135, potassium 4.1, BUN 35, creatinine 1.33, glucose in the 100s. Procalcitonin level today 0.41. proBNP was checked at 2790. Echocardiogram showing EF 45% with moderate LVH, mild MR, Moderate aortic stenosis. 12/02/2021 Patient status post right nephrectomy for kidney mass with pathology showing renal cell carcinoma with clear margins, patient does not have a Porter catheter and sheaths. Without problem and urologist already followed up with the patient. Patient also with new onset A. fib and her rate is controlled, no anticoagulation for her recent surgery. She is on prophylactic Lovenox Also with evidence of bilateral pneumonia, left more than right lower lobe. Currently covered with Zosyn. FiO2 is 50% with global 45 L per minute and gradually improving. 12/03/2021 Patient looks similar to yesterday sitting in chair with air for nasal cannula with a similar to yesterday with flow rate 40-year-old FiO2 50% patient is still tachypneic and chest x-ray showed evidence of CHF Heart A. fib heart rate looks controlled. With no chest pain However patient mainly has extensive consolidation of lung secondary to infection and is currently on Zosyn. Also she is on aspirin and Plavix and Lovenox 12/05/2019 Patient breathing pattern with same as yesterday. She still on flow rate of 40 L per minute and FiO2 of 50% over the last 3 days with no much improvement. She is currently on Zosyn for left more right lower lobe pneumonia, However there is some evidence of fluid overload and she visits one-time dose of Lasix 40 mg also IV Solu-Medrol of 40 mg every 6 or started today. Patient is also on aspirin and Plavix and Lovenox lactic dose. Echocardiogram showed ejection fraction of 45% with moderate aortic stenosis and LVH. Creatinine 1.1 12/05/2021 Patient sitting in chair, she says her breathing is slightly better, her oxygen requirement also slightly went down to 40/40%. Patient still tachypneic However she still distended tachypneic and she has evidence of CHF on the chest x-ray or bone morning and not excluded, also chest x-ray and ultrasound showing small left pleural effusion that is been treated with IV Lasix. Also patient continued Zosyn. Creatinine is stable at 1.1. Her heart rate is A. fib with rate controlled 12/06/2021 Patient continued to improve significantly her oxygen requirement dropped to 6 L per minute Patient continued on Solu-Medrol 40 mg and Zosy Eventually patient transferred out of the ICU to the medical genital floor Patient insulin dose was adjusted. Keep monitoring glucose 12/07/2021 Patient continued to improve every day and her oxygen requirements and to 4 L/m today While she remains on Zosyn and Solu-Medrol Also patient received 1 dose of IV Lasix today. Her glucose remains uncontrolled while she is on Levemir 15 units and NovoLog 10 units with meals. Amaryl added today. Continue close glucose monitoring 12/08/2021 Patient improving steadily Patient remains on 4 L oxygen with saturation 93-94% No new complaints His breathing is stable and repeat chest x-ray showing atelectasis Currently she is on Solu-Medrol 40 mg Zosyn Amaryl added for better glucose control. Glucose known 200s which is improved. Still has mild leukocytosis while on steroids Objective - Vital Signs Vital signs: Vital Signs Temp 97.8 F 12/08/21 13:46 Pulse 88 12/08/21 15:48 Resp 17 12/08/21 13:46 BP 110/64 12/08/21 13:46 Pulse Ox 93 L 12/08/21 13:46 FiO2 40 12/06/21 16:00 Intake & Output 12/07/21 12/08/21 12/08/21 18:59 06:59 18:59 Output Total 1 Balance -1 Output: Stool 1 Other: Voiding Method Bedside Commode Bedside Commode Bedside Commode # Voids 6 2 8 # Bowel Movements 4 2 - Exam GENERAL: The patient is alert and oriented x3, not in any acute distress. Well developed, well nourished. HEENT: Pupils are round and equally reacting to light. EOMI. No scleral icterus. No conjunctival pallor. Normocephalic, atraumatic. No pharyngeal erythema. No thyromegaly. CARDIOVASCULAR: S1 and S2 present. No murmurs, rubs, or gallops. PULMONARY: Chest is clear to auscultation, no wheezing or crackles. ABDOMEN: Soft, nontender, nondistended, normoactive bowel sounds. No palpable organomegaly. MUSCULOSKELETAL: No joint swelling or deformity. EXTREMITIES: No cyanosis, clubbing, or pedal edema. NEUROLOGICAL: Gross neurological examination did not reveal any focal deficits. SKIN: No rashes. no petechiae. - Labs CBC & Chem 7: 12/08/21 06:01 12/08/21 06:01 Labs: Abnormal Lab Results - Last 24 Hours (Table) 12/07/21 12/08/21 12/08/21 Range/Units 20:10 06:01 06:01 WBC 17.28 H (4.50-10.00) X 10*3/uL RBC 3.40 L (4.10-5.20) X 10*6/uL Hgb 9.8 L (12.0-15.0) g/dL Hct 30.3 L (37.2-46.3) % RDW 15.1 H (11.5-14.5) % Myelocytes % 3 H (0-0) % Neutrophils # (Manual) 14.34 H (2.00-8.90) X 10*3/uL BUN 34.8 H (9.0-27.0) mg/dL Est GFR (CKD-EPI)NonAf 55.5 L (60.0-200.0) BUN/Creatinine Ratio 34.80 H (12.00-20.00) Ratio Glucose 222 H (70-110) mg/dL POC Glucose (mg/dL) 332 H (70-110) mg/dL 12/08/21 12/08/21 12/08/21 Range/Units 06:47 11:32 16:26 WBC (4.50-10.00) X 10*3/uL RBC (4.10-5.20) X 10*6/uL Hgb (12.0-15.0) g/dL Hct (37.2-46.3) % RDW (11.5-14.5) % Myelocytes % (0-0) % Neutrophils # (Manual) (2.00-8.90) X 10*3/uL BUN (9.0-27.0) mg/dL Est GFR (CKD-EPI)NonAf (60.0-200.0) BUN/Creatinine Ratio (12.00-20.00) Ratio Glucose (70-110) mg/dL POC Glucose (mg/dL) 225 H 200 H 271 H (70-110) mg/dL Assessment and Plan Assessment: Acute hypoxic respiratory failure secondary to possible bilateral pneumonia currently on airvo oxygen support Acute hypoxic respiratory failure secondary to above New-onset atrial fibrillation with rapid ventricular rate, converted to normal sinus rhythm. Troponin elevation secondary to type 2 HI, managed medically Status post robotic partial right nephrectomy with pathology: Renal cell carcinoma with clear margin Acute renal injury improving Elevated liver enzymes Diabetes mellitus type 2 Hypertension currently blood pressure is 100 systolic Hyperlipidemia History coronary artery disease status post cardiac stents in the past Plan: Patient is being monitored in intensive care unit currently on Airvo 45/50 Continue empiric antibiotic coverage, currently on Zosyn and bronchodilators Systemic steroids Hold amlodipine/benazepril combination Continue daily stool softener, miralax added today Currently on aspirin/plavix combination No further cardiac workup. Urologist of the case GI Prophylaxis:Pepcid DVT Prophylaxis: Lovenox Full Code Patient medically stable once cleared by pulmonary and urology teams Yam Curer recommended no further cardiac workup
[2021-12-08 19:59] LABS: Glucose,Whole Blood 338 mg/dL (70-110)
[2021-12-08] MEDS: ATORVASTATIN 80 MG TAB PO SCH (20:10)
[2021-12-09] MEDS: PIPERACILLIN-TAZOBACTAM 3.375 GM in SODIUM CHLORIDE 0.9% 100 ML IVPB SCH (04:46)
[2021-12-09 07:01] LABS: Glucose,Whole Blood 263 mg/dL (70-110)
[2021-12-09] MEDS: INSULIN DETEMIR (LEVEMIR) 100 UNIT/ML SYR SQ SCH (07:10)
[2021-12-09] MEDS: INSULIN ASPART (NovoLOG) 100 UNIT/ML VIAL SQ SCH ×4 (07:10→12:43)
[2021-12-09] MEDS: GLIMEPIRIDE 1 MG TAB PO SCH (07:11)
[2021-12-09] MEDS: IPRATROPIUM-ALBUTEROL 3 ML NEB INHALATION SCH ×3 (09:20→15:21)
[2021-12-09] MEDS: ENOXAPARIN 40 MG/0.4 ML SYRINGE SQ SCH (09:49)
[2021-12-09] MEDS: methylPREDNISolone SOD SUCCI 40 MG/ML 1 ML VIAL IV SCH (09:50)
[2021-12-09] MEDS: METOPROLOL TARTRATE 12.5 MG TAB PO SCH (09:50)
[2021-12-09] MEDS: CLOPIDOGREL 75 MG TAB PO SCH (09:50)
[2021-12-09] MEDS: amLODIPine 10 MG TAB PO SCH (09:50)
[2021-12-09] MEDS: ASPIRIN 81 MG PO SCH (09:50)
[2021-12-09] MEDS: polyethylene glycoL 3350 17 GM POWD.PACK PO SCH (10:06)
[2021-12-09] MEDS: FAMOTIDINE 20 MG TAB PO SCH (10:06)
[2021-12-09] MEDS: DOCUSATE 100 MG CAP PO SCH (10:06)
[2021-12-09 11:13] LABS: Glucose,Whole Blood 128 mg/dL (70-110)
[2021-12-09 11:43] VITALS: BMI 30.9
--- NOTE | 2021-12-09 12:16 | P.PN ---
Subjective Progress Note Date: 12/09/21 Principal diagnosis: Right renal mass Follow up with patient who is POD #15 from a right robotic partial nephrectomy with extensive lysis of adhesions. Postoperative complications included A. fib with RVR and pneumonia. She is sitting up in a chair and currently on RA. she states she is feeling good today. Laparoscopic sites to abdomen are clean and dry. She denies any pain. She is afebrile. She is tolerating a regular diet. Denies nausea or vomiting. She is voiding without difficulty, denies any dysuria or hematuria. Encourage ambulation as tolerated. Objective - Vital Signs Vital signs: Vital Signs Temp 98.5 F 12/09/21 11:48 Pulse 60 12/09/21 11:48 Resp 15 12/09/21 11:48 BP 150/73 12/09/21 11:48 Pulse Ox 97 12/09/21 07:41 FiO2 40 12/06/21 16:00 Intake & Output 12/08/21 12/09/21 12/09/21 18:59 06:59 18:59 Weight 74.3 kg Other: Voiding Method Bedside Commode Bedside Commode Bedside Commode # Voids 8 5 # Bowel Movements 2 1 - Exam - General -no distress - Eyes normal ocular movement - ENT normal nares, normal mucosa - Respiratory normal expansion, non-labored - Abdomen soft, no tenderness - Labs CBC & Chem 7: 12/08/21 06:01 12/08/21 06:01 Labs: Abnormal Lab Results - Last 24 Hours (Table) 12/08/21 12/08/21 12/09/21 Range/Units 16:26 19:58 06:59 POC Glucose (mg/dL) 271 H 338 H 263 H (70-110) mg/dL 12/09/21 Range/Units 11:12 POC Glucose (mg/dL) 128 H (70-110) mg/dL Assessment and Plan (1) Right renal mass Status: Acute Code(s): N28.89 - OTHER SPECIFIED DISORDERS OF KIDNEY AND URETER SNOMED Code(s): 350354067 Plan: No acute events overnight. The patient is urologically stable. Impression and plan of care have been directed as dictated by the signing physician. Divine Dorantes nurse practitioner acting as scribe for signing physician. Divine Dorantes [facility] Palliative Care/Urology Spectralink [phone] Email: [email or web address] I personally performed and participated in the history, physical, the decision making, I agree with the assessment and plan of [employer] Time with Patient: Less than 30
--- NOTE | 2021-12-09 12:31 | XR ---
EXAMINATION TYPE: XR chest 1V portable DATE OF EXAM: 12/09/2021 10:26 AM COMPARISON: Chest radiographs from 12/08/2021 TECHNIQUE: XR chest 1V portable Portable AP radiograph of the chest. CLINICAL INDICATION:Female, 76 years old with history of CHF; FINDINGS: Lungs/Pleura: There is no evidence of pleural effusion, focal consolidation, or pneumothorax. Pulmonary vascularity: Unremarkable. Heart/mediastinum: Cardiomediastinal silhouette is unremarkable. Atherosclerotic calcifications are seen in the aorta. Musculoskeletal: No acute osseous pathology. IMPRESSION: No acute cardiopulmonary disease/process.
--- NOTE | 2021-12-09 13:00 | P.PN ---
Subjective This is a 76 year old female, post operative day #4 right partial nephrectomy for known history of right renal mass. Patients hospital stay complicated by shortness of breath and hypoxia, with chest pain. A team was called this morning and patient has been transferred to intensive care unit for close monitoring. Found to be in atrial fibrillation with rapid ventricular rate and received amiodarone bolus and continues on amiodarone infusion, pending cardiology consultation. Patient also received a dose of IV lasix 40 mg today. D-Dimer elevated at 0.96, chest CTA is negative for pulmonary embolism. Chest xray showing patchy bibasilar infiltrates. Continues on bronchodilators, empiric antibiotics with IV zosyn. Echocardiogram completed in April of this year shows an EF of 45-50% with LV wall hypokinesis, mild MR, mild TR. Labs reviewed today showing a white count of 13.2, sodium 136, beyond 20, creatinine 1.25. He does have troponin elevation at 1.400. Liver enzymes are also elevated, proBNP 662. Covid negative. He remains afebrile, heart rate 140 8H fibrillation, blood pressure 101/73, patient is on a non rebreather at 15 L. Patient is on a combination of amlodipine/benazepril daily which we will hold at this time secondary to low normal BPs. 11/29/2021 Patient is evaluated today in intensive care unit. Converted to normal sinus rhythm yesterday afternoon and amiodarone has been discontinued. Urology recommending for patient to hold anticoagulation currently and eliquis has been stopped at this time. Troponins have been trended and increased up to 41.000. Cardiology following patient. Echocardiogram has been ordered. Patient had chest xray this morning showing basilar pneumonia with findings similar to previous exam with associated effusion. Follow up abdomen chest CT showing possible perinephric hemorrhage/hematoma. with possible additional areas of strandy hemorrhage in the right pericaval region. Also, possible small focal hematoma vs. metastatic deposit in lateral right perinephric space. There is possible infectious or aspiration pneumonitis with trace right pleural effusion. No pericardial effusion. There is coronary artery disease evident. Patient continues on BiPAP with FiO2 of 88%, afebrile, maintaining normal sinus rhythm heart rate 82, blood pressure 106/59. Continues on IV zosyn. Labs reviewed showing BUN 30, creatinine 1.53, AST 204, ALT 122, alk phos 152 which have increased. 11/30/2021 Patient continues to be monitored closely in intensive care unit. She has been transitioned from BiPAP onto high flow airvo oxygen support with 55/80. Had low grade fever 99.8 around midnight. Today she is sitting up in chair, reports having cough with occasional sputum production. Reports breathing better, no chest pain. Has not had BM, she does not want any additional stool softeners besides colace. Chest xray today showing possible developing pulmonary vascular congestion, with developing patchy edema/infiltrate right lower lung and consolidation left base. Continues on IV zosyn. Procalcitonin level today 0.48. Creatinine today 1.58. Has been started on baby aspirin. Urology recommending to hold off on anticoagulation due to risk for bleeding. She is postoperative day #6 right partial nephrectomy. 12/01/2021 Patient is evaluated in the intensive care unit. Patient is postoperative day #7 right partial nephrectomy. She has been resumed on plavix and also started on lovenox today. Continues on airvo oxygen support 50/50 with oxygen saturations of 93%. Afebrile overnight. Blood cultures are currently negative. Continues on IV antibiotics with IV zosyn empirically. She has not had a BM postoperatively does have increased bowel sounds today. She is agreeable to miralax in addition to colace. Labs today showing sodium level of 135, potassium 4.1, BUN 35, creatinine 1.33, glucose in the 100s. Procalcitonin level today 0.41. proBNP was checked at 2790. Echocardiogram showing EF 45% with moderate LVH, mild MR, Moderate aortic stenosis. 12/02/2021 Patient status post right nephrectomy for kidney mass with pathology showing renal cell carcinoma with clear margins, patient does not have a Porter catheter and sheaths. Without problem and urologist already followed up with the patient. Patient also with new onset A. fib and her rate is controlled, no anticoagulation for her recent surgery. She is on prophylactic Lovenox Also with evidence of bilateral pneumonia, left more than right lower lobe. Currently covered with Zosyn. FiO2 is 50% with global 45 L per minute and gradually improving. 12/03/2021 Patient looks similar to yesterday sitting in chair with air for nasal cannula with a similar to yesterday with flow rate 40-year-old FiO2 50% patient is still tachypneic and chest x-ray showed evidence of CHF Heart A. fib heart rate looks controlled. With no chest pain However patient mainly has extensive consolidation of lung secondary to infection and is currently on Zosyn. Also she is on aspirin and Plavix and Lovenox 12/05/2019 Patient breathing pattern with same as yesterday. She still on flow rate of 40 L per minute and FiO2 of 50% over the last 3 days with no much improvement. She is currently on Zosyn for left more right lower lobe pneumonia, However there is some evidence of fluid overload and she visits one-time dose of Lasix 40 mg also IV Solu-Medrol of 40 mg every 6 or started today. Patient is also on aspirin and Plavix and Lovenox lactic dose. Echocardiogram showed ejection fraction of 45% with moderate aortic stenosis and LVH. Creatinine 1.1 12/05/2021 Patient sitting in chair, she says her breathing is slightly better, her oxygen requirement also slightly went down to 40/40%. Patient still tachypneic However she still distended tachypneic and she has evidence of CHF on the chest x-ray or bone morning and not excluded, also chest x-ray and ultrasound showing small left pleural effusion that is been treated with IV Lasix. Also patient continued Zosyn. Creatinine is stable at 1.1. Her heart rate is A. fib with rate controlled 12/06/2021 Patient continued to improve significantly her oxygen requirement dropped to 6 L per minute Patient continued on Solu-Medrol 40 mg and Zosy Eventually patient transferred out of the ICU to the medical genital floor Patient insulin dose was adjusted. Keep monitoring glucose 12/07/2021 Patient continued to improve every day and her oxygen requirements and to 4 L/m today While she remains on Zosyn and Solu-Medrol Also patient received 1 dose of IV Lasix today. Her glucose remains uncontrolled while she is on Levemir 15 units and NovoLog 10 units with meals. Amaryl added today. Continue close glucose monitoring 12/08/2021 Patient improving steadily Patient remains on 4 L oxygen with saturation 93-94% No new complaints His breathing is stable and repeat chest x-ray showing atelectasis Currently she is on Solu-Medrol 40 mg Zosyn Amaryl added for better glucose control. Glucose known 200s which is improved. Still has mild leukocytosis while on steroids 12/10/2019 patient does not have much symptoms, she denies chest pain or dyspnea, she works to the bathroom with no difficulty. She is eating well about 7500% of her diet No chest pain or dyspnea or abdominal pain or vomiting or diarrhea. She has some occasional coughing but she declines any cough medicine No leg edema, very mild basal crepitation. Chest x-ray showing no acute process Patient in the morning was still on 4 L oxygen nasal cannula, patient does not want to be discharged on oxygen. Also she does not have chronic lung disease to qualify for home oxygen as per my discussion with social scientist Patient may be evaluated while on room air. Pulmonary team on the case She is on Zosyn and IV Solu-Medrol 40 mg twice a day Her glucose control on Levemir 15 units, NovoLog 10 units and Amaryl 1 mg daily. Glucose this morning to 63 and 128. Pathology showing renal cell carcinoma grade 3 all margins negative for carcinoma tumor extends to disrupted capsular surface focally clinical correlation suggested is to exclude involvement of capsular margins Objective - Vital Signs Vital signs: Vital Signs Temp 98.5 F 12/09/21 11:48 Pulse 60 12/09/21 11:48 Resp 15 12/09/21 11:48 BP 150/73 12/09/21 11:48 Pulse Ox 97 12/09/21 07:41 FiO2 40 12/06/21 16:00 Intake & Output 12/08/21 12/09/21 12/09/21 18:59 06:59 18:59 Weight 74.3 kg Other: Voiding Method Bedside Commode Bedside Commode Bedside Commode # Voids 8 5 # Bowel Movements 2 1 - Exam GENERAL: The patient is alert and oriented x3, not in any acute distress. Well developed, well nourished. HEENT: Pupils are round and equally reacting to light. EOMI. No scleral icterus. No conjunctival pallor. Normocephalic, atraumatic. No pharyngeal erythema. No thyromegaly. CARDIOVASCULAR: S1 and S2 present. No murmurs, rubs, or gallops. PULMONARY: Chest is clear to auscultation, no wheezing or crackles. ABDOMEN: Soft, nontender, nondistended, normoactive bowel sounds. No palpable organomegaly. MUSCULOSKELETAL: No joint swelling or deformity. EXTREMITIES: No cyanosis, clubbing, or pedal edema. NEUROLOGICAL: Gross neurological examination did not reveal any focal deficits. SKIN: No rashes. no petechiae. - Labs CBC & Chem 7: 12/08/21 06:01 12/08/21 06:01 Labs: Abnormal Lab Results - Last 24 Hours (Table) 12/08/21 12/08/21 12/09/21 Range/Units 16:26 19:58 06:59 POC Glucose (mg/dL) 271 H 338 H 263 H (70-110) mg/dL 12/09/21 Range/Units 11:12 POC Glucose (mg/dL) 128 H (70-110) mg/dL Assessment and Plan Assessment: Acute hypoxic respiratory failure secondary to possible bilateral pneumonia, resolved and repeat chest x-ray is normal Acute hypoxic respiratory failure secondary to above, improving. Right kidney mass status post robotic partial nephrectomy. Pathology showing renal cell carcinoma, new diagnosis New-onset atrial fibrillation with rapid ventricular rate, converted to normal sinus rhythm. Troponin elevation secondary to type 2 CO, managed medically Status post robotic partial right nephrectomy with pathology: Renal cell carcinoma with clear margin Acute renal injury improving Elevated liver enzymes Diabetes mellitus type 2 Hypertension currently blood pressure is 100 systolic Hyperlipidemia History coronary artery disease status post cardiac stents in the past Plan: Patient is being monitored in intensive care unit currently on Airvo 45/50 Continue empiric antibiotic coverage, currently on Zosyn and bronchodilators Systemic steroids per pulmonary team Hold amlodipine/benazepril combination. Continue with amlodipine 10 mg daily Continue daily stool softener, miralax Currently on aspirin/plavix combination No further cardiac workup. Urologist of the case, we will defer the management of her renal cell carcinoma to urology primary team (pt aware of her diagnosis of cancer as she confirmed to me today) GI Prophylaxis:Pepcid DVT Prophylaxis: Lovenox Full Code Patient medically stable once cleared by pulmonary and urology teams Core Shaper Sides recommended no further cardiac workup
--- NOTE | 2021-12-09 13:01 | P.PN ---
Subjective Progress Note Date: 12/09/21 This is a 76-year-old female patient of the transferred to the intensive care unit for increased shortness of breath. The patient was found to be in atrial fibrillation with rapid ventricular response and for that reason the patient got transferred to the ICU. The patient is currently postop day #4. The patient underwent a right partial nephrectomy. A CTA of the chest was done yesterday and the patient was found to have no evidence of any pulmonary embolism. Note that the patient was found to have a 3.5 cm right sided renal mass. Based on that, the patient was taken to the operating room for a nephrectomy. The patient is known to be having other comorbid conditions including hypertension, hyperlipidemia diabetes mellitus. The patient is also known to have CAD with previous AL. She has previous chronic catheterization and stenting.. This morning, the patient Got transferred to the intensive care unit the patient developed itchy fibrillation with rapid ventricular response. She is currently on the heart rate of 137, irregular with a blood pressure 113/75. She was placed on 100% nonrebreather facemask and her current pulse ox is 94%. The patient is also having some chest pain this morning. Morning chest pains. The patient is also having chest pain which is sternal, 6 out of 10 in severity. Cardiac enzymes are pending. EKG was done and it showed atrial fibrillation with a rapid ventricular response . I reviewed the EKG there is no significant ST segment changes. There is voltage criteria for LVH. There may be some inferior wall ST segment depression. The chest x-ray also showed some limited bibasilar pulmonary infiltrates along with some cardiomegaly. Lung volumes are essentially small. The patient is currently postoperative day #4. IV fluids are currently at KVO. The patient came in to the ICU and she was given amiodarone bolus initially at a dose of 150 mg of following that she was started on a maintenance of 1 mg/m. I also reviewed the CTA of the chest that was done on 11/27/2021. As mentioned, there is evidence of a pulmonary embolism. There is significant atelectatic changes in the lung bases bilaterally. No reported aspiration. She has an incentive spirometer at the bedside. In terms of her blood work, the patient's white cell count that is a 50 point the XII.5 and a platelet count of 204. Electrolytes from yesterday were all within normal limits with the B 20/20 creatinine 1.09. Sodium is 136. Cardiac enzymes are still pending. The patient is diabetic and she is on a combination of antihypertensive diabetic medication. She is on Dilaudid for pain control. She is also on IV Zosyn that was started 11/26/21 as an empiric antibiotic coverage.the patient had an echocardiogram on 05/05/2021 that showed segmental wall motion abnormalities involving the anterior wall, inferior wall of the septal wall. Ejection fraction was around 45-50%. The LV size was normal. No significant valvular abnormalities were noted. No significant pulmonary hypertension. Her previous cardiac catheterization was done in April 2021. She has undergone stenting to the LAD and subsequently to the circumflex. As such, the patient has stool coronary stents and the patient was receiving dual antiplatelet treatment on outpatient basis. Reevaluated today on 12/05/21, patient remains in the ICU, remains on airvo at 50% FiO2 and 40 L flow. Patient continues to have abnormal chest x-ray showing bilateral pleural effusions left more so than right, possible diastolic congestive heart failure, and significant atelectasis of the left base. Overnight, the patient has been on BiPAP, she is improving but very slowly. Continue his incentive spirometry, and COVID-19 testing came back negative ultrasound of the chest today showed pleural effusion but not large enough to consider thoracentesis safely. WBC count is 9.7 hemoglobin is 10.9 lites are normal renal profile showed a BUN of 23 creatinine 1.16, unchanged compared to the last few days. Chest x-ray continues to show cardiomegaly, small pleural effusions, the chest x-ray itself is consistent with congestive heart failure, superimposed infection is not entirely excluded. More Lasix was given today. Reevaluated today on 12/06/21, patient remains in the ICU, remains on airvo at 40% FiO2 and 40 L flow, patient is feeling better breathing easier, her chest x- ray is showing improvement in her left pleural effusion and atelectasis. Hence I will try the patient on a high flow nasal cannula. And I plan to transfer the patient to regular medical floor today if possible. WBC count is 14.7 hemoglobin is 10.7 and electrolytes are normal creatinine is 1.27, hence I will hold on diuretics today. Patient remains on amlodipine, aspirin, atorvastatin, Plavix, Colace, Lovenox 30 mg subcu daily, Pepcid 20 mg daily, hydrocodone, Dilaudid, insulin subcu, DuoNeb updrafts 4 times a day and when necessary, methylprednisolone 40 mg IV push every 6 hours and I will cut it down to every 8, she is also on metoprolol nitroglycerin and Zosyn The patient is seen today 12/07/2021 in follow-up on the regular medical floor. She is improved and down to 4 L nasal cannula with O2 saturations in the 90s. Chest x-ray reveals [id number] left pleural effusion with prominent adjacent left basilar atelectasis and/or consolidation. Improvement in aeration of the right lung base. Blood and sputum cultures revealed no growth. White count 17.1. Hemoglobin 10.0. Sodium 140. Potassium 5.2. BUN 36. Creatinine 1.1. Glucose 265. She is continued on DuoNeb inhalations, IV Solu-Medrol, IV Zosyn. Lovenox for DVT prophylaxis. The patient is seen today 12/08/2021 in follow-up on the regular medical floor. She is currently sitting up in a chair at the bedside. Awake and alert in no acute distress. She is breathing easier today. Maintaining good O2 saturations in the 90s on 4 L/m per nasal cannula. Chest x-ray with stable small left pleural effusion and left basilar atelectasis. Right basilar atelectasis noted as well. Blood culture reveals no growth. Sputum culture revealed no growth. White count 17.2. Hemoglobin 9.8. Sodium 139. Potassium 4.6. BUN 34. C reatinine 1.0. Glucose 222. She is continued on DuoNeb inhalations, IV Solu- Medrol, IV Zosyn. Lovenox for DVT prophylaxis. She was given additional Lasix 40 mg IVP 1 yesterday with good urine output. The patient is seen today 12/09/2021 in follow-up on the regular medical floor. She is awake and alert in no acute distress. Currently sitting up in a chair at the bedside. Maintaining O2 saturations in the 90s on room air. She's afebrile. Hemodynamically stable. Chest x-ray showing no acute cardiopulmonary process. Some atelectasis of the lung base. She is encouraged regarding the in creased use the incentive spirometer. Blood cultures revealed no growth. Sputum cultures revealed no growth. Glucose 128. She has completed a course of antibiotics. Continued on bronchodilators, IV Solu-Medrol. Lovenox for DVT prophylaxis. Objective - Vital Signs Vital signs: Vital Signs Temp 98.5 F 12/09/21 11:48 Pulse 60 12/09/21 11:48 Resp 15 12/09/21 11:48 BP 150/73 12/09/21 11:48 Pulse Ox 97 12/09/21 07:41 FiO2 40 12/06/21 16:00 Intake & Output 12/08/21 12/09/21 12/09/21 18:59 06:59 18:59 Weight 74.3 kg Other: Voiding Method Bedside Commode Bedside Commode Bedside Commode # Voids 8 5 # Bowel Movements 2 1 - Exam GENERAL EXAM: Alert, 76-year-old female, up in a chair at the bedside, on room air, comfortable in no apparent distress. HEAD: Normocephalic. EYES: Normal reaction of pupils, equal size. NOSE: Clear with pink turbinates. THROAT: No erythema or exudates. NECK: No masses, no JVD. CHEST: No chest wall deformity. LUNGS: Equal air entry with crackles in the left lung base. CVS: S1 and S2 normal with no audible murmur, regular rhythm. ABDOMEN: No hepatosplenomegaly, normal bowel sounds, no guarding or rigidity. SPINE: No scoliosis or deformity SKIN: No rashes CENTRAL NERVOUS SYSTEM: No focal deficits, tone is normal in all 4 extremities. EXTREMITIES: There is no peripheral edema. No clubbing, no cyanosis. Peripheral pulses are intact. - Labs CBC & Chem 7: 12/08/21 06:01 12/08/21 06:01 Labs: Abnormal Lab Results - Last 24 Hours (Table) 12/08/21 12/08/21 12/09/21 Range/Units 16:26 19:58 06:59 POC Glucose (mg/dL) 271 H 338 H 263 H (70-110) mg/dL 12/09/21 Range/Units 11:12 POC Glucose (mg/dL) 128 H (70-110) mg/dL Assessment and Plan Assessment: Acute hypoxic respiratory failure, multifactorial, mostly related to postoperative atelectasis and consolidation, left pleural effusion and left lower lobe atelectasis, suspect acute systolic congestive heart failure and ejection fraction of 45% Atelectasis is an expected outcome of surgery, continues to work well with the incentive spirometer, recovered and on room air Moderate aortic stenosis New-onset atrial fibrillation Acute non-ST elevation myocardial infarction History of nephrectomy/renal mass postoperative day #14 Perinephric edema and suspected hemorrhage in the perinephric area History of underlying coronary artery disease and previous stent of circumflex and LAD Type 2 diabetes Benign essential hypertension Acute kidney injury, improved with creatinine 1.0 Lang: The patient was seen and evaluated Chest x-ray, labs and medications reviewed Cleared for discharge from the pulmonary standpoint Continue to work with the incentive spirometer May benefit from a small dose of daily diuretics To follow closely with nephrology I have personally seen and examined the patient, performed the documentation and the assessment and plan as written. Number of minutes spent on the visit: 10.
[2021-12-09 13:28] VITALS: BP 136/69; PULSE 71; RESP 17; TEMP 97.6
--- NOTE | 2021-12-09 18:29 | P.DS ---
Providers Date of admission: 11/28/21 07:38 Attending physician: Juvenal Del Cid MD Consults: 11/26/21 07:54 Consult Physician Urgent Consulting Provider: Kareem Portillo Consult Reason/Comments: med management/judi Do you want consulting provider notified?: Yes 11/27/21 10:03 Consult Physician Routine Consulting Provider: Alex Monroy Consult Reason/Comments: pneumonia post op Do you want consulting provider notified?: Yes 11/28/21 07:30 Consult Physician Urgent Consulting Provider: Roldan Nieto Consult Reason/Comments: a.fib RVR Do you want consulting provider notified?: Yes Primary care physician: Haritha Shauna - Discharge Diagnosis(es) (1) Right renal mass Status: Acute Hospital Course: this is a 76-year-old female history of a right-sided renal mass. Underwent a right-sided robotic partial nephrectomy on November 24. Patient was admitted to the hospital postoperatively. Porter catheter was removed on postoperative day #2, patient started experiencing shortness of breath on postoperative day #2, underwent a chest x-ray which was concerning for pneumonia, the medical service was consulted. Patient FUNMI drain was removed on postoperative day #3. On postoperative day #4 patient had progressive worsening shortness of breath, and was tachycardic. She was subsequently transferred to the ICU, cardiology and pulmonology were consulted for her tachycardia and increased oxygen requirement , of note patient was in A. fib with rapid ventricular rate. A CTA of the chest showed no evidence of any pulmonary embolism. given patient's respiratory status, she remained in the ICU until December 06. She was requiring airvo at 50% FiO2 and 40 L flow and on BiPAP at nighttime. She continued to improve slowly. patient was transferred to the regular floor on December 07. she was discharged home on December 09 at that time she was off of oxygen. At time of discharge she was ambulating, tolerating a diet, pain was controlled Plan - Discharge Summary Discharge Rx Participant: Yes New Discharge Prescriptions: New Albuterol Inhaler [Ventolin Hfa Inhaler] 1 - 2 puff INHALATION Q6H PRN #1 each PRN Reason: Shortness Of Breath Or Wheezing Metoprolol Tartrate [Lopressor] 12.5 mg PO BID #60 tab amLODIPine [Norvasc] 10 mg PO DAILY #30 tab Continue Atorvastatin [Lipitor] 80 mg PO HS Glimepiride [Amaryl] 4 mg PO DAILY Aspirin 81 mg PO DAILY 30 Days #30 Clopidogrel [Plavix] 75 mg PO DAILY Nitroglycerin Sl Tabs [Nitrostat] 0.4 mg SUBLINGUAL Q5M PRN PRN Reason: Chest Pain Empagliflozin [Jardiance] 10 mg PO DAILY metFORMIN HCL 1,000 mg PO BID Discontinued Metoprolol Succinate (ER) [Toprol XL] 12.5 mg PO HS amLODIPine BESYLATE/BENAZEPRIL [amLODIPine BESYLATE/BENAZEPRIL 10-40 mg] 1 cap PO DAILY Cephalexin [Keflex] 500 mg PO Q12HR No Action Healty Eyes 1 tab PO DAILY Discharge Medication List Glimepiride [Amaryl] 4 mg PO DAILY 05/04/21 [History] Aspirin 81 mg PO DAILY 30 Days #30 05/11/21 [Rx] Clopidogrel [Plavix] 75 mg PO DAILY 06/22/21 [History] Empagliflozin [Jardiance] 10 mg PO DAILY 06/22/21 [History] Nitroglycerin Sl Tabs [Nitrostat] 0.4 mg SUBLINGUAL Q5M PRN 06/22/21 [History] Atorvastatin [Lipitor] 80 mg PO HS 11/22/21 [History] Healty Eyes 1 tab PO DAILY 11/22/21 [History] metFORMIN HCL 1,000 mg PO BID 11/22/21 [History] Albuterol Inhaler [Ventolin Hfa Inhaler] 1 - 2 puff INHALATION Q6H PRN #1 each 12/09/21 [Rx] Metoprolol Tartrate [Lopressor] 12.5 mg PO BID #60 tab 12/09/21 [Rx] amLODIPine [Norvasc] 10 mg PO DAILY #30 tab 12/09/21 [Rx] Follow up Appointment(s)/Referral(s): Corinne Hawley MD [STAFF PHYSICIAN] - 1 Week (kidney doctor ) Haritha Villatoro MD [Primary Care Provider] - 1 Week Juvenal Del Cid MD [STAFF PHYSICIAN] - 03/10/22 10:20 am Alex Monroy DO [Doctor of Osteopathic Medicine] - 2 Weeks [facility], [NON-STAFF] - 1-2 Days ([facility] will call you to schedule your in home nursing and aide visits. ) Patient Instructions/Handouts: A-fib (Atrial Fibrillation) (DC), Laparoscopic Partial Nephrectomy (DC), Pneumonia (DC) Activity/Diet/Wound Care/Special Instructions: Heart healthy diet, low carbohydrate 1600 kcal per day Activity is restricted till you see your doctor We recommend to check your glucose 4 times a day, before each meal and at bedtime. Keep the results in a log book and bring it to your doctor on your appointment date. If your glucose less than 70 or more than 400 then call 911 and come to emergency room Discharge Disposition: HOME WITH HOME HEALTH SERVICES
== END 2021-12-09 17:44 | disposition home health service (06) | DRG 981 ==
LOC: OR 05:46 → 4SSUR 11:19 → 2SICU 11-28 07:32 → 4SSUR 11-28 07:38 → OR 11-28 07:38 → OBSVTOIN 11-28 07:38 → 2SICU 11-28 08:23 → 4SSUR 12-06 20:33
PROVIDERS: ADMIT Urology; ATTEND Urology
PROC: 0DNU4ZZ Release Omentum, Percutaneous Endoscopic Approach (ICD-10-PCS; 2021-11-24)
PROC: 0TB04ZZ Excision of Right Kidney, Percutaneous Endoscopic Approach (ICD-10-PCS; principal; 2021-11-24 07:30)
PROC: 5A09357 Assistance with Respiratory Ventilation, Less than 24 Consecutive Hours, Continuous Positive Airway Pressure (ICD-10-PCS; 2021-11-29)
PROC: 5A0935A Assistance with Respiratory Ventilation, Less than 24 Consecutive Hours, High Flow/Velocity Cannula (ICD-10-PCS; 2021-11-29)
DX: I48.91 Unspecified atrial fibrillation (principal); I21.A1 Myocardial infarction type 2; I50.21 Acute systolic (congestive) heart failure; J96.01 Acute respiratory failure with hypoxia; J15.9 Unspecified bacterial pneumonia; N17.9 Acute kidney failure, unspecified; C64.1 Malignant neoplasm of right kidney, except renal pelvis; J95.89 Other postprocedural complications and disorders of respiratory system, not elsewhere classified; J98.11 Atelectasis; I11.0 Hypertensive heart disease with heart failure; E11.65 Type 2 diabetes mellitus with hyperglycemia; I08.0 Rheumatic disorders of both mitral and aortic valves; E78.5 Hyperlipidemia, unspecified; H35.30 Unspecified macular degeneration; R00.1 Bradycardia, unspecified; R00.0 Tachycardia, unspecified; K66.0 Peritoneal adhesions (postprocedural) (postinfection); I25.10 Atherosclerotic heart disease of native coronary artery without angina pectoris; Z20.822 Contact with and (suspected) exposure to COVID-19; Z28.310 Unvaccinated for COVID-19; I25.2 Old myocardial infarction; Z90.5 Acquired absence of kidney; Z95.5 Presence of coronary angioplasty implant and graft; Z79.899 Other long term (current) drug therapy; Z79.84 Long term (current) use of oral hypoglycemic drugs; Z79.82 Long term (current) use of aspirin; Z79.02 Long term (current) use of antithrombotics/antiplatelets; Z88.8 Allergy status to other drugs, medicaments and biological substances
CPT/HCPCS: 36410; 64999; 71045; 71250; 74150; 76604; 76937; 80048; 80053; 81001; 83036; 83735; 83880; 84145; 84484; 85025; 85027; 86850; 86900; 86901; 87040; 87070; 87205; 87635; 88307; 93005; 93306; 94640; 94660; 94760

== ENCOUNTER 2021-12-10 18:15 | Inpatient (IN) | payer MEDICARE, OTHER ==
--- NOTE | 2021-12-10 19:11 | ED ---
SOB HPI - General Chief Complaint: Shortness of Breath Stated Complaint: Pneumonia Time Seen by Provider: 12/10/21 18:45 Source: patient, RN notes reviewed, old records reviewed Mode of arrival: ambulatory Limitations: no limitations - History of Present Illness Initial Comments: 76-year-old female presents with complaints of increasing shortness of breath since being discharged from the hospital yesterday. Patient states she was in the hospital for pneumonia and did receive antibiotics. She seen a linux server engineer while in the hospital that was going to do a thoracentesis and then changed his mind. Patient continues to have worsening shortness of breath despite using her inhaler as directed. She states she woke up this morning with low blood glucose which was only 60. States she did eat and her symptoms resolved. She states she does live alone MD Complaint: shortness of breath -: days(s) (2) Severity scale (1-10): 0 Consistency: constant Improves With: nothing Worsens With: exertion, movement Known History Of: congestive heart failure Treatments Prior to Arrival: bronchodilator - Related Data Home Medications Medication Instructions Recorded Confirmed Glimepiride [Amaryl] 4 mg PO DAILY 05/04/21 12/10/21 Clopidogrel [Plavix] 75 mg PO DAILY 06/22/21 12/10/21 Empagliflozin [Jardiance] 10 mg PO DAILY 06/22/21 12/10/21 Nitroglycerin Sl Tabs [Nitrostat] 0.4 mg SUBLINGUAL Q5M PRN 06/22/21 12/10/21 Atorvastatin [Lipitor] 80 mg PO HS 11/22/21 12/10/21 Healty Eyes 1 tab PO DAILY 11/22/21 12/10/21 metFORMIN HCL 1,000 mg PO BID 11/22/21 12/10/21 Previous Rx's Medication Instructions Recorded Aspirin 81 mg PO DAILY 30 Days #30 05/11/21 Albuterol Inhaler [Ventolin Hfa 1 - 2 puff INHALATION Q6H PRN #1 12/09/21 Inhaler] each Metoprolol Tartrate [Lopressor] 12.5 mg PO BID #60 tab 12/09/21 amLODIPine [Norvasc] 10 mg PO DAILY #30 tab 12/09/21 Allergies Allergy/AdvReac Type Severity Reaction Status Date / Time enalaprilat [From Vasotec] Allergy Anaphylaxis Verified 12/10/21 21:09 Review of Systems ROS Statement: Those systems with pertinent positive or pertinent negative responses have been documented in the HPI. ROS Other: All systems not noted in ROS Statement are negative. Past Medical History Past Medical History: Coronary Artery Disease (CAD), Diabetes Mellitus, Eye Disorder, Hyperlipidemia, Hypertension, Myocardial Infarction ([place]) Additional Past Medical History / Comment(s): HEART MURMUR. mass right kidney, hx migraines, macular degeneration,currently on antibiotic for UTI Last Myocardial Infarction Date:: April 2021 History of Any Multi-Drug Resistant Organisms: None Reported Past Surgical History: Appendectomy, Back Surgery, Breast Surgery, Cholecystectomy, Heart Catheterization With Stent, Hysterectomy, Orthopedic Surgery Additional Past Surgical History / Comment(s): "NECK LAMINECTOMY". LEFT BREAST BIOPSY, 2 cardiac stents, left shoulder rotator cuff, rt cataract Past Anesthesia/Blood Transfusion Reactions: No Reported Reaction Date of Last Stent Placement:: April 2021 Past Psychological History: Anxiety Smoking Status: Never smoker Past Alcohol Use History: None Reported Past Drug Use History: None Reported - Past Family History Mother Additional Family Medical History / Comment(s): Aneurism Father Family Medical History: Myocardial Infarction (NM) General Exam Limitations: no limitations General appearance: alert, in no apparent distress Head exam: Present: atraumatic Eye exam: Absent: conjunctival injection, periorbital swelling ENT exam: Present: mucous membranes dry, other (lips cracked and bleeding) Neck exam: Present: normal inspection. Absent: tenderness, meningismus Respiratory exam: Present: rales (Bilateral), decreased breath sounds, other (Tachypneic). Absent: accessory muscle use Cardiovascular Exam: Present: regular rate GI/Abdominal exam: Present: soft. Absent: distended, tenderness, guarding, rebound, rigid Extremities exam: Present: normal capillary refill. Absent: pedal edema Back exam: Present: normal inspection. Absent: tenderness, CVA tenderness (R), CVA tenderness (L), rash noted Neurological exam: Present: alert, oriented X3 Psychiatric exam: Present: normal affect, normal mood Skin exam: Present: warm, normal color. Absent: cyanosis, diaphoretic, petechiae, pallor Course Vital Signs 12/10/21 12/10/21 18:34 22:41 Temperature 98.5 F Pulse Rate 80 81 Respiratory 22 20 Rate Blood Pressure 153/82 112/88 O2 Sat by Pulse 95 96 Oximetry Medical Decision Making - Medical Decision Making Patient returned to ER after being discharged yesterday for increasing shortness of breath. Chest x-ray repeated shows pneumonia with a WBC count of 26. Troponin is elevated at 0.209 down from 41.0 on November 29. Patient denies any chest pain. She was started on antibiotics for hospital-acquired pneumonia. She will be admitted with consults to Dr. Carvajal requested by Dr. Enrique. Case discussed with Dr. Smith. - Lab Data Result diagrams: 12/10/21 19:49 12/10/21 19:49 Lab Results 12/10/21 12/10/21 12/10/21 Range/Units 19:49 19:49 19:49 WBC 26.0 H (3.8-10.6) k/uL RBC 4.13 (3.80-5.40) m/uL Hgb 12.3 (11.4-16.0) gm/dL Hct 36.6 (34.0-46.0) % MCV 88.6 (80.0-100.0) fL MCH 29.7 (25.0-35.0) pg MCHC 33.5 (31.0-37.0) g/dL RDW 15.3 (11.5-15.5) % Plt Count 443 (150-450) k/uL MPV 7.5 Neutrophils % 82 % Lymphocytes % 10 % Monocytes % 4 % Eosinophils % 2 % Basophils % 1 % Neutrophils # 21.5 H (1.3-7.7) k/uL Lymphocytes # 2.6 (1.0-4.8) k/uL Monocytes # 1.0 (0-1.0) k/uL Eosinophils # 0.5 (0-0.7) k/uL Basophils # 0.2 (0-0.2) k/uL PT 11.0 (9.0-12.0) sec INR 1.0 (<1.2) APTT 23.6 (22.0-30.0) sec Sodium 139 (137-145) mmol/L Potassium 4.2 (3.5-5.1) mmol/L Chloride 102 (98-107) mmol/L Carbon Dioxide 26 (22-30) mmol/L Anion Gap 11 mmol/L BUN 40 H (7-17) mg/dL Creatinine 1.31 H (0.52-1.04) mg/dL Est GFR (CKD-EPI)AfAm 46 (>60 ml/min/1.73 sqM) Est GFR (CKD-EPI)NonAf 40 (>60 ml/min/1.73 sqM) Glucose 51 L (74-99) mg/dL Plasma Lactic Acid Missael (0.7-2.0) mmol/L Calcium 9.4 (8.4-10.2) mg/dL Magnesium 1.8 (1.6-2.3) mg/dL Total Bilirubin 0.6 (0.2-1.3) mg/dL AST 49 H (14-36) U/L ALT 109 H (4-34) U/L Alkaline Phosphatase 142 H (38-126) U/L Troponin I (0.000-0.034) ng/mL NT-Pro-B Natriuret Pep pg/mL Total Protein 6.6 (6.3-8.2) g/dL Albumin 3.9 (3.5-5.0) g/dL 12/10/21 12/10/21 12/10/21 Range/Units 19:49 19:49 19:49 WBC (3.8-10.6) k/uL RBC (3.80-5.40) m/uL Hgb (11.4-16.0) gm/dL Hct (34.0-46.0) % MCV (80.0-100.0) fL MCH (25.0-35.0) pg MCHC (31.0-37.0) g/dL RDW (11.5-15.5) % Plt Count (150-450) k/uL MPV Neutrophils % % Lymphocytes % % Monocytes % % Eosinophils % % Basophils % % Neutrophils # (1.3-7.7) k/uL Lymphocytes # (1.0-4.8) k/uL Monocytes # (0-1.0) k/uL Eosinophils # (0-0.7) k/uL Basophils # (0-0.2) k/uL PT (9.0-12.0) sec INR (<1.2) APTT (22.0-30.0) sec Sodium (137-145) mmol/L Potassium (3.5-5.1) mmol/L Chloride (98-107) mmol/L Carbon Dioxide (22-30) mmol/L Anion Gap mmol/L BUN (7-17) mg/dL Creatinine (0.52-1.04) mg/dL Est GFR (CKD-EPI)AfAm (>60 ml/min/1.73 sqM) Est GFR (CKD-EPI)NonAf (>60 ml/min/1.73 sqM) Glucose (74-99) mg/dL Plasma Lactic Acid Missael 1.3 (0.7-2.0) mmol/L Calcium (8.4-10.2) mg/dL Magnesium (1.6-2.3) mg/dL Total Bilirubin (0.2-1.3) mg/dL AST (14-36) U/L ALT (4-34) U/L Alkaline Phosphatase (38-126) U/L Troponin I 0.209 H* (0.000-0.034) ng/mL NT-Pro-B Natriuret Pep 3440 pg/mL Total Protein (6.3-8.2) g/dL Albumin (3.5-5.0) g/dL Disposition Clinical Impression: Pneumonia, Congestive heart failure Disposition: ADMITTED IP TO THIS [facility] Decision Date: 12/10/21 Decision Time: 20:55
[2021-12-10] MEDS ORDERED: FUROSEMIDE 10 MG/ML 4 ML VIAL IV STA (19:20)
[2021-12-10 20:07] LABS: Basophils # (A) 0.2 k/uL (0-0.2); Basophils % (A) 1 %; Eosinophils # (A) 0.5 k/uL (0-0.7); Eosinophils % (A) 2 %; HCT 36.6 % (34.0-46.0); HGB 12.3 gm/dL (11.4-16.0); Lymphocytes # (A) 2.6 k/uL (1.0-4.8); Lymphocytes % (A) 10 %; MCH 29.7 pg (25.0-35.0); MCHC 33.5 g/dL (31.0-37.0); MCV 88.6 fL (80.0-100.0); Mean Platelet Volume 7.5; Monocytes % (A) 4 %; Neutrophils # (A) 21.5 k/uL (1.3-7.7); Neutrophils % (A) 82 %; Platelet Count 443 k/uL (150-450); RBC 4.13 m/uL (3.80-5.40); RDW 15.3 % (11.5-15.5)
[2021-12-10 20:17] LABS: Albumin 3.9 g/dL (3.5-5.0); Calcium 9.4 mg/dL (8.4-10.2); Magnesium 1.8 mg/dL (1.6-2.3); Potassium 4.2 mmol/L (3.5-5.1); Total Bilirubin 0.6 mg/dL (0.2-1.3); Total Protein 6.6 g/dL (6.3-8.2)
[2021-12-10 20:20] LABS: Partial Thromboplastin Time 23.6 sec (22.0-30.0)
--- NOTE | 2021-12-10 20:22 | XR ---
EXAMINATION TYPE: XR chest 2V DATE OF EXAM: 12/10/2021 COMPARISON: Yesterday HISTORY: Difficulty breathing TECHNIQUE: 2 views FINDINGS: There is blunting of the left cause phrenic angle. There is pulmonary vascular congestion. Heart is top normal in size. IMPRESSION: There is congestive heart failure with left pleural effusion. Left lower lobe pneumonia i s possible. Chest appears slightly worse than last exam
[2021-12-10] MEDS ORDERED: PIPERACILLIN-TAZOBACTAM 3.375 GM in SODIUM CHLORIDE 0.9% 100 ML IVPB STA (20:45)
[2021-12-10] MEDS ORDERED: cefTRIAXone IN SWFI 1,000 MG/10 ML SYRINGE IVP STA (20:54)
[2021-12-10] MEDS ORDERED: NALOXONE 0.4 MG/ML 1 ML VIAL IV PRN (20:58)
[2021-12-10] MEDS ORDERED: ACETAMINOPHEN TAB 325 MG TAB PO PRN (20:58)
[2021-12-10] MEDS ORDERED: SODIUM CHLORIDE 0.9% 1,000 ML IV SCH (21:00)
[2021-12-11] MEDS ORDERED: NITROGLYCERIN SL TABS 0.4 MG TAB SUBLINGUAL PRN (00:29)
[2021-12-11 03:06] LABS: Glucose,Whole Blood 144 mg/dL (70-110)
--- NOTE | 2021-12-11 07:42 | P.HPIM ---
History of Present Illness This is a pleasant 76 years old female who was discharged from the hospital yesterday for bilateral pneumonia complicating her right nephrectomy for her right renal cell carcinoma. She was discharged home but states she does not f eel well patient was recently discharged from the hospital 11/23-12/09 after resection of right kidney mass with renal cell carcinoma. Associated with pneumonia. Patient presents with shortness of breath both at rest and with exertion associated with some cough but no flaps coming up Patient was feeling chills and clammy and sweaty She had total diarrhea last night. No abdominal pain. Patient Vitas looks stable and patient is afebrile Labs showing worsening leukocytosis 17 up to 26,000. Risks of CBC, INR is unremarkable. Creatinine worsened 1.0-1.3. Liver enzymes were sent with AST 49 and a 5109. Troponin elevated 0.2 TRENDED down from 41 about 10 days ago. ProBNP is only mildly elevated 3440. EKG showing normal sinus rhythm at 73 with chest x-ray showed congestive heart failure with left pleural effusion. Left lower lobe pneumonias possible acute CHF Possible left lower lobe pneumonia Patient is started on Zosyn Review of Systems Review of systems CONSTITUTIONAL: No fever, no malaise, no fatigue. HEENT: No recent visual problems or hearing problems. Denied any sore throat. CARDIOVASCULAR: No orthopnea, PND, no palpitations, no syncope. PULMONARY: No shortness of breath, no cough, no hemoptysis. GASTROINTESTINAL: No diarrhea, no nausea, no vomiting, no abdominal pain. Normoactive bowel sounds. NEUROLOGICAL: No headaches, no weakness, no numbness. HEMATOLOGICAL: Denies any bleeding or petechiae. GENITOURINARY: Denies any burning micturition, frequency, or urgency. MUSCULOSKELETAL/RHEUMATOLOGICAL: Denies any joint pain, swelling, or any muscle pain. ENDOCRINE: Denies any polyuria or polydipsia. Past Medical History Past Medical History: Coronary Artery Disease (CAD), Diabetes Mellitus, Eye Disorder, Hyperlipidemia, Hypertension, Myocardial Infarction (AK) Additional Past Medical History / Comment(s): HEART MURMUR. mass right kidney, hx migraines, macular degeneration,currently on antibiotic for UTI Last Myocardial Infarction Date:: April 2021 History of Any Multi-Drug Resistant Organisms: None Reported Past Surgical History: Appendectomy, Back Surgery, Breast Surgery, Cholecystectomy, Heart Catheterization With Stent, Hysterectomy, Orthopedic Surgery Additional Past Surgical History / Comment(s): "NECK LAMINECTOMY". LEFT BREAST BIOPSY, 2 cardiac stents, left shoulder rotator cuff, rt cataract Past Anesthesia/Blood Transfusion Reactions: No Reported Reaction Date of Last Stent Placement:: April 2021 Past Psychological History: Anxiety Smoking Status: Never smoker Past Alcohol Use History: None Reported Past Drug Use History: None Reported - Past Family History Mother Additional Family Medical History / Comment(s): Aneurism Father Family Medical History: Myocardial Infarction ([place]) Medications and Allergies Home Medications Medication Instructions Recorded Confirmed Type Glimepiride [Amaryl] 4 mg PO DAILY 05/04/21 12/10/21 History Aspirin 81 mg PO DAILY 30 Days #30 05/11/21 12/10/21 Rx Clopidogrel [Plavix] 75 mg PO DAILY 06/22/21 12/10/21 History Empagliflozin [Jardiance] 10 mg PO DAILY 06/22/21 12/10/21 History Nitroglycerin Sl Tabs [Nitrostat] 0.4 mg SUBLINGUAL Q5M PRN 06/22/21 12/10/21 History Atorvastatin [Lipitor] 80 mg PO HS 11/22/21 12/10/21 History Healty Eyes 1 tab PO DAILY 11/22/21 12/10/21 History metFORMIN HCL 1,000 mg PO BID 11/22/21 12/10/21 History Albuterol Inhaler [Ventolin Hfa 1 - 2 puff INHALATION Q6H PRN #1 12/09/21 12/10/21 Rx Inhaler] each Metoprolol Tartrate [Lopressor] 12.5 mg PO BID #60 tab 12/09/21 12/10/21 Rx amLODIPine [Norvasc] 10 mg PO DAILY #30 tab 12/09/21 12/10/21 Rx Allergies Allergy/AdvReac Type Severity Reaction Status Date / Time enalaprilat [From Vasotec] Allergy Anaphylaxis Verified 12/10/21 21:09 Physical Exam Vitals: Vital Signs Temp Pulse Resp BP Pulse Ox 12/10/21 22:41 81 20 112/88 96 12/10/21 18:34 98.5 F 80 22 153/82 95 Intake and Output 12/10/21 12/10/21 12/11/21 14:59 22:59 06:59 Other: Weight 73.936 kg GENERAL: The patient is alert and oriented x3, not in any acute distress. Well developed, well nourished. HEENT: Pupils are round and equally reacting to light. EOMI. No scleral icterus. No conjunctival pallor. Normocephalic, atraumatic. No pharyngeal erythema. No thyromegaly. CARDIOVASCULAR: S1 and S2 present. No murmurs, rubs, or gallops. PULMONARY: Chest is clear to auscultation, no wheezing or crackles. ABDOMEN: Soft, nontender, nondistended, normoactive bowel sounds. No palpable organomegaly. MUSCULOSKELETAL: No joint swelling or deformity. EXTREMITIES: No cyanosis, clubbing, or pedal edema. NEUROLOGICAL: Gross neurological examination did not reveal any focal deficits. SKIN: No rashes. no petechiae. Results CBC & Chem 7: 12/10/21 19:49 12/10/21 19:49 Labs: Abnormal Lab Results - Last 24 Hours (Table) 12/10/21 12/10/21 12/10/21 Range/Units 19:49 19:49 19:49 WBC 26.0 H (3.8-10.6) k/uL Neutrophils # 21.5 H (1.3-7.7) k/uL BUN 40 H (7-17) mg/dL Creatinine 1.31 H (0.52-1.04) mg/dL Glucose 51 L (74-99) mg/dL POC Glucose (mg/dL) (70-110) mg/dL AST 49 H (14-36) U/L ALT 109 H (4-34) U/L Alkaline Phosphatase 142 H (38-126) U/L Troponin I 0.209 H* (0.000-0.034) ng/mL 12/11/21 Range/Units 03:04 WBC (3.8-10.6) k/uL Neutrophils # (1.3-7.7) k/uL BUN (7-17) mg/dL Creatinine (0.52-1.04) mg/dL Glucose (74-99) mg/dL POC Glucose (mg/dL) 144 H (70-110) mg/dL AST (14-36) U/L ALT (4-34) U/L Alkaline Phosphatase (38-126) U/L Troponin I (0.000-0.034) ng/mL Assessment and Plan Assessment: Possible acute CHF Possible Left lower lobe pneumonia Recent history of Right kidney mass status post robotic partial nephrectomy. Pathology showing renal cell carcinoma, new diagnosis New-onset atrial fibrillation with rapid ventricular rate, converted to normal sinus rhythm. Troponin elevation secondary to type 2 [place], managed medically Status post robotic partial right nephrectomy with pathology: Renal cell carcinoma with clear margin Acute renal injury improving Elevated liver enzymes Diabetes mellitus type 2 Hypertension currently blood pressure is 100 systolic Hyperlipidemia History coronary artery disease status post cardiac stents in the past Plan: This is a pleasant 76 years old female with respiratory symptoms secondary to CHF and possible pneumonia Follow-up culture results Continue with Zosyn Pulmonary consult Monitor creatinine discontinue IV fluids Monitor glucose, hold metformin because of worsening creatinine. She still on Amaryl 4 mg and farxiga . We're going to change the dose of amiodarone to 2 mg twice a day, Labs and medication were reviewed.. Continue same treatment. Continue with symptomatic treatment. Resume home medication. Monitor lytes and vitals. DVT and GI prophylaxis. Further recommendations as per clinical course of the patient DVT prophylaxis: Subcutaneous heparin GI Prophylaxis: Pepcid PT/OT: Pending Prognosis is guarded
[2021-12-11] MEDS ORDERED: GLIMEPIRIDE 4 MG TAB PO SCH (09:00)
[2021-12-11] MEDS ORDERED: metFORMIN 500 MG TAB PO SCH (09:00)
[2021-12-11] MEDS ORDERED: ASPIRIN 81 MG PO SCH (09:00)
[2021-12-11] MEDS ORDERED: FUROSEMIDE 10 MG/ML 4 ML VIAL IV SCH (09:00)
[2021-12-11] MEDS: DAPAGLIFLOZIN PROPANEDIOL 5 MG TABLET PO SCH (09:01)
[2021-12-11] MEDS: amLODIPine 10 MG TAB PO SCH (09:01)
[2021-12-11] MEDS: GLIMEPIRIDE 2 MG TAB PO SCH (09:01)
[2021-12-11] MEDS: METOPROLOL TARTRATE 12.5 MG TAB PO SCH ×2 (09:02→21:21)
[2021-12-11] MEDS: CLOPIDOGREL 75 MG TAB PO SCH (09:02)
[2021-12-11 09:58] LABS: Basophils # (A) 0.09 X 10*3/uL (0.00-0.10); Basophils % (A) 0.5 %; Eosinophils # (A) 0.35 X 10*3/uL (0.04-0.35); Eosinophils % (A) 1.8 %; HCT 37.7 % (37.2-46.3); Immature Grans, Automated 4.9 %; Lymphocytes # (A) 2.46 X 10*3/uL (0.90-5.00); Lymphocytes % (A) 12.7 %; MCH 28.8 pg (27.0-32.0); MCHC 31.8 g/dL (32.0-37.0); MCV 90.4 fL (80.0-97.0); Monocytes # (A) 0.99 X 10*3/uL (0.20-1.00); Monocytes % (A) 5.1 %; NRBC Per 100 WBC 0.1 /100 WBCS (0.0-0.0); Platelet Count 373 X 10*3/uL (140-440); RBC 4.17 X 10*6/uL (4.10-5.20); RDW 15.9 % (11.5-14.5); WBC 19.33 X 10*3/uL (4.50-10.00)
[2021-12-11 10:10] LABS: Magnesium 2.1 mg/dL (1.5-2.4)
--- NOTE | 2021-12-11 10:45 | P.CNPUL ---
History of Present Illness Consult date: 12/11/21 Requesting physician: Max Enrique Reason for consult: dyspnea, pleural effusion Chief complaint: Shortness of breath History of present illness: This is a 76-year-old female familiar to my service, I saw this patient few days ago, and I saw her mostly for postoperative left lower lobe atelectasis, pleural effusion, and acute systolic congestive heart failure as with fluid overload post nephrectomy. Patient had ultrasound of the chest, and the amount of the fluid on the left side was small did not feel that the patient could have a safe thoracentesis. Hence the patient was diuresed, she had a significant clinical improvement, she was initially on high flow oxygen utilizing airvo and high flow cannula, and as the patient started clinically improving she went to room air. Patient was discharged home 2 days ago on room air, however the recommendation was to continue diuretics on this patient and to have incentive spirometry. Patient was discharged home, apparently she did not take any diuretics and she is back to the ER last night complaining of shortness of breath. Indeed her chest x-ray showed evidence of congestive heart failure/interstitial edema, small left pleural effusion and left lower lobe atelectasis. Patient was not hypoxic, she remained on room air all along, she received Lasix while in the ER, and the patient was admitted by the hospitalist, I was asked to see this patient on consultation. Patient is already feeling better since she received the Lasix last night. Went back and reviewed her last echocardiogram from her last admission she had an ejection fraction of 45%. At any rate I am recommending that the patient goes again on diuretics, and repeat chest x-ray in the next 24 hours. I also recommended cardiology to evaluate the patient. Patient denies any fever no chills, no hemoptysis, no chest pain. Her cough is productive with clear phlegm. However the patient did have leukocytosis with WBC count of 26.0, she had a creatinine of 1.31, elevated BNP of 3440, pro-calcitonin is pending at the time of this dictation. Patient will also had slightly elevated troponin of 0.209. Review of Systems CONSTITUTIONAL: No fever, no malaise, no fatigue. HEENT: Negative CARDIOVASCULAR: As noted in HPI PULMONARY: As noted in HPI GASTROINTESTINAL: Negative. NEUROLOGICAL: Negative HEMATOLOGICAL: Negative GENITOURINARY: Negative MUSCULOSKELETAL/RHEUMATOLOGICAL: Negative. ENDOCRINE: Negative. Past Medical History Past Medical History: Coronary Artery Disease (CAD), Diabetes Mellitus, Eye Disorder, Hyperlipidemia, Hypertension, Myocardial Infarction (SD) Additional Past Medical History / Comment(s): HEART MURMUR. mass right kidney, hx migraines, macular degeneration,currently on antibiotic for UTI Last Myocardial Infarction Date:: April 2021 History of Any Multi-Drug Resistant Organisms: None Reported Past Surgical History: Appendectomy, Back Surgery, Breast Surgery, Cholecystectomy, Heart Catheterization With Stent, Hysterectomy, Orthopedic Surgery Additional Past Surgical History / Comment(s): "NECK LAMINECTOMY". LEFT BREAST BIOPSY, 2 cardiac stents, left shoulder rotator cuff, rt cataract Past Anesthesia/Blood Transfusion Reactions: No Reported Reaction Date of Last Stent Placement:: April 2021 Past Psychological History: Anxiety Smoking Status: Never smoker Past Alcohol Use History: None Reported Past Drug Use History: None Reported - Past Family History Mother Additional Family Medical History / Comment(s): Aneurism Father Family Medical History: Myocardial Infarction (SD) Medications and Allergies Home Medications Medication Instructions Recorded Confirmed Type Glimepiride [Amaryl] 4 mg PO DAILY 05/04/21 12/10/21 History Aspirin 81 mg PO DAILY 30 Days #30 05/11/21 12/10/21 Rx Clopidogrel [Plavix] 75 mg PO DAILY 06/22/21 12/10/21 History Empagliflozin [Jardiance] 10 mg PO DAILY 06/22/21 12/10/21 History Nitroglycerin Sl Tabs [Nitrostat] 0.4 mg SUBLINGUAL Q5M PRN 06/22/21 12/10/21 History Atorvastatin [Lipitor] 80 mg PO HS 11/22/21 12/10/21 History Healty Eyes 1 tab PO DAILY 11/22/21 12/10/21 History metFORMIN HCL 1,000 mg PO BID 11/22/21 12/10/21 History Albuterol Inhaler [Ventolin Hfa 1 - 2 puff INHALATION Q6H PRN #1 12/09/21 12/10/21 Rx Inhaler] each Metoprolol Tartrate [Lopressor] 12.5 mg PO BID #60 tab 12/09/21 12/10/21 Rx amLODIPine [Norvasc] 10 mg PO DAILY #30 tab 12/09/21 12/10/21 Rx Allergies Allergy/AdvReac Type Severity Reaction Status Date / Time enalaprilat [From Vasotec] Allergy Anaphylaxis Verified 12/10/21 21:09 Physical Exam Vitals: Vital Signs Temp Pulse Resp BP Pulse Ox 12/11/21 07:18 95 18 115/95 95 12/10/21 22:41 81 20 112/88 96 12/10/21 18:34 98.5 F 80 22 153/82 95 Intake and Output 12/10/21 12/11/21 12/11/21 22:59 06:59 14:59 Other: Weight 73.936 kg Physical Exam: Revealed a 76-year-old female in no distress on room air. Head: Atraumatic, normocephalic. HEENT:[Neck is supple.] [No neck masses.] [No thyromegaly.] [No JVD.] Chest: [Diminished breath sounds at the left base, crackles bilaterally, no rhonchi and no wheezes Cardiac Exam: [Normal S1 and S2, no S3 gallop, 2/6 systolic murmur throughout the precordium Abdomen: [Soft, nontender, no megaly, no rebound, no guarding, normal bowel sounds.] Extremities: [No clubbing, no edema, no cyanosis.] Neurological Exam: [No focal neurologic deficit.] Alert oriented 3 Psychiatric: Normal mood affect and normal mental status examination. Skin: No rashes. Musculoskeletal: No deformities and no limitation in range of motion Results - Laboratory Findings CBC and BMP: 12/11/21 06:01 12/10/21 19:49 PT/INR, D-dimer PT 11.0 sec (9.0-12.0) 12/10/21 19:49 INR 1.0 (<1.2) 12/10/21 19:49 Abnormal lab findings: Abnormal Labs 12/10/21 12/10/21 12/10/21 19:49 19:49 19:49 WBC 26.0 H MCHC RDW Absolute Nucleated RBC Immature Gran # Neutrophils # 21.5 H NRBC/100 WBC Diff BUN 40 H Creatinine 1.31 H Glucose 51 L POC Glucose (mg/dL) AST 49 H ALT 109 H Alkaline Phosphatase 142 H Troponin I 0.209 H* 12/11/21 12/11/21 03:04 06:01 WBC 19.33 H MCHC 31.8 L RDW 15.9 H Absolute Nucleated RBC 0.02 H Immature Gran # 0.94 H Neutrophils # 14.50 H NRBC/100 WBC Diff 0.1 H BUN Creatinine Glucose POC Glucose (mg/dL) 144 H AST ALT Alkaline Phosphatase Troponin I - Diagnostic Findings Chest x-ray: image reviewed (As noted in HPI chest x-ray is mostly consistent with left lower lobe atelectasis and CHF.) Assessment and Plan Assessment: Impression: Acute systolic congestive heart failure Left lower lobe atelectasis, doubt pneumonia this was a postoperative atelectasis with left pleural effusion and it was relatively small for safe thoracentesis. Remains small, and thoracentesis is not necessary. New onset atrial fibrillation with RVR, converted to sinus rhythm Elevated troponin Recent robotic partial right nephrectomy consistent with renal cell carcinoma Acute kidney injury Type 2 diabetes Benign essential hypertension Dyslipidemia Coronary arteriosclerosis and previous stents. Ischemic cardiomyopathy and LV dysfunction ejection fraction 45%. Recommendation: Continue diuretics Continue incentive spirometry Continue Zosyn empirically for now, however if pro calcitonin level is low would recommend stopping Zosyn. Discontinue IV fluids. Cardiology to evaluate for her congestive heart failure Continue GI and DVT prophylaxis We will continue to Time with Patient: Greater than 30
[2021-12-11 13:28] LABS: ALT 88 U/L (8-44); AST 34 U/L (13-35); African American GFR (CKD) 57.9 (60.0-200.0); Albumin 3.7 g/dL (3.8-4.9); Albumin/Globulin Ratio 1.49 (1.60-3.17); Alkaline Phosphatase 136 U/L (41-126); BUN/Creat Ratio 36.33 Ratio (12.00-20.00); Bilirubin, Conjugated <0.20 mg/dL (0.20-0.40); Blood Urea Nitrogen 39.6 mg/dL (9.0-27.0); Carbon Dioxide 25.2 mmol/L (20.0-27.5); Chloride 103 mmol/L (96-109); Globulin 2.5 g/dL (1.6-3.3); Glucose 114 mg/dL (70-110); Potassium 4.2 mmol/L (3.5-5.5); Sodium 140 mmol/L (135-145); Total Protein 6.1 g/dL (6.2-8.2)
[2021-12-11] MEDS ORDERED: HEPARIN SODIUM 1,000 UN/ML (10ML VL) IV PRN (16:57)
[2021-12-11 17:12] LABS: Glucose,Whole Blood 230 mg/dL (70-110)
[2021-12-11] MEDS ORDERED: HEPARIN SODIUM 1,000 UN/ML (10ML VL) IV ONE (17:15)
[2021-12-11] MEDS ORDERED: HEPARIN SOD,PORK IN 0.45% NACL 25,000 UNIT in 0.45% NACL 1 250ML.BAG IV SCH (17:30)
[2021-12-11] MEDS ORDERED: DILTIAZEM DRIP BOLUS FROM BAG 1 MG SOLN IV ONE (17:30)
[2021-12-11] MEDS ORDERED: DILTIAZEM 125 MG in SODIUM CHLORIDE 0.9% 100 ML IV SCH (17:30)
[2021-12-11 17:53] LABS: Basophils # (A) 0.1 k/uL (0-0.2); Basophils % (A) 1 %; Eosinophils # (A) 0.5 k/uL (0-0.7); Eosinophils % (A) 3 %; HCT 39.1 % (34.0-46.0); HGB 13.1 gm/dL (11.4-16.0); Lymphocytes # (A) 2.4 k/uL (1.0-4.8); Lymphocytes % (A) 13 %; MCH 29.4 pg (25.0-35.0); MCHC 33.5 g/dL (31.0-37.0); MCV 87.9 fL (80.0-100.0); Mean Platelet Volume 7.6; Monocytes # (A) 0.8 k/uL (0-1.0); Monocytes % (A) 4 %; Neutrophils # (A) 14.1 k/uL (1.3-7.7); Neutrophils % (A) 78 %; Platelet Count 379 k/uL (150-450); RBC 4.44 m/uL (3.80-5.40); RDW 15.4 % (11.5-15.5)
[2021-12-11 18:07] LABS: Partial Thromboplastin Time 24.3 sec (22.0-30.0)
[2021-12-11 20:17] LABS: Glucose,Whole Blood 252 mg/dL (70-110)
[2021-12-11] MEDS ORDERED: DEXTROSE 50% SYRINGE 50 ML IVP PRN ×2 (20:54)
[2021-12-11] MEDS: INSULIN ASPART (NovoLOG) 100 UNIT/ML VIAL SQ SCH (21:21)
[2021-12-11] MEDS: ATORVASTATIN 80 MG TAB PO SCH (21:21)
--- NOTE | 2021-12-12 00:34 | CONS ---
CONSULTATION CHIEF COMPLAINT: Shortness of breath. HISTORY OF PRESENT ILLNESS: Jessica is a 76-year-old lady with history of aax-[id number]-[id number] diabetes, hypertension, coronary artery disease status post prior angioplasty, who had recently undergone nephrectomy secondary to renal cancer, comes to hospital with elevated heart rate, shortness of breath, and pleural effusion. She had been in the hospital recently and at that time had elevated troponin of unclear clinical significance and atrial fibrillation with poorly controlled ventricular rate. At the time of my evaluation this morning, the patient appears comfortable at rest. She is in sinus rhythm, heart rate is well controlled. A chest x-ray showed evidence of left pleural effusion. The patient's hemoglobin is normal at 12. Potassium is 4.2, creatinine is 1.1. Troponin is mildly elevated at 0.2. BNP is elevated at 3440. The patient had an echocardiogram at her recent admission that revealed an ejection fraction of 45%. The patient has had pneumonia. The patient's clinical presentation seems to be due to a combination of acute onset systolic heart failure and pneumonia, atelectasis. The patient is improving with IV Lasix. The patient was in atrial fibrillation with rapid ventricular rate, but had converted to sinus rhythm. PAST MEDICAL HISTORY: Significant for renal cancer, status post nephrectomy; hypertension; diabetes; dyslipidemia. CURRENT MEDICATIONS: 1. Metformin. 2. Amlodipine 10 mg daily. 3. Lopressor 12.5 b.i.d. 4. Amaryl. 5. Jardiance. 6. Plavix. 7. Lipitor. 8. Aspirin. 9. Albuterol. ALLERGIES: To Vasotec. FAMILY HISTORY: Negative for premature coronary artery disease. SOCIAL HISTORY: Negative for current smoking, EtOH abuse or drug abuse. REVIEW OF SYSTEMS: HEENT: Unremarkable. CARDIAC: As described above. RESPIRATORY: Negative. GI: Negative. GENITOURINARY: Significant for recent nephrectomy. PSYCHOSOCIAL: Negative. DERM: Negative. CONSTITUTIONAL: Negative. ONCOLOGICAL: Negative. Rest of the system review is not relevant. PHYSICAL EXAMINATION: VITAL SIGNS: Heart rate is 94 beats per minute, blood pressure is 111/60, respiratory rate is 18. CHEST: Reveals diminished air entry at the left base. HEART: Reveals first and second heart sounds. No gallop. There is a systolic murmur at the apex. ABDOMEN: Soft. EXTREMITIES: Examination of extremities did not reveal any edema. LABORATORY DATA: Lab showed hemoglobin is 12. Potassium is 4.2, creatinine is 1.1. Troponin is mildly elevated. BNP is elevated. ASSESSMENT: 1. Acute onset systolic heart failure. 2. Paroxysmal atrial fibrillation. 3. Coronary artery disease, status post angioplasty. 4. Renal cancer, status post nephrectomy. PLAN: We will treat the patient with IV Lasix and adjust her therapy MMODL / IJN: [id number] /
[2021-12-12 05:37] LABS: Glucose,Whole Blood 185 mg/dL (70-110)
[2021-12-12] MEDS: INSULIN ASPART (NovoLOG) 100 UNIT/ML VIAL SQ SCH ×4 (06:54→20:46)
[2021-12-12 08:22] LABS: Basophils # (A) 0.1 k/uL (0-0.2); Basophils % (A) 0 %; Eosinophils # (A) 0.7 k/uL (0-0.7); Eosinophils % (A) 4 %; HCT 38.6 % (34.0-46.0); HGB 12.7 gm/dL (11.4-16.0); Hypochromasia Slight; Lymphocytes # (A) 2.5 k/uL (1.0-4.8); Lymphocytes % (A) 16 %; MCH 29.6 pg (25.0-35.0); MCHC 32.8 g/dL (31.0-37.0); MCV 90.2 fL (80.0-100.0); Mean Platelet Volume 7.9; Monocytes # (A) 0.8 k/uL (0-1.0); Monocytes % (A) 5 %; Neutrophils # (A) 11.5 k/uL (1.3-7.7); Neutrophils % (A) 74 %; Platelet Count 340 k/uL (150-450); RBC 4.27 m/uL (3.80-5.40); RDW 15.7 % (11.5-15.5); WBC 15.6 k/uL (3.8-10.6)
[2021-12-12] MEDS: amLODIPine 10 MG TAB PO SCH (08:28)
[2021-12-12] MEDS: APIXABAN 5 MG TAB PO SCH ×2 (08:29→20:46)
[2021-12-12] MEDS: FUROSEMIDE 10 MG/ML 4 ML VIAL IV SCH (08:30)
[2021-12-12] MEDS: CLOPIDOGREL 75 MG TAB PO SCH (08:30)
[2021-12-12] MEDS: DAPAGLIFLOZIN PROPANEDIOL 5 MG TABLET PO SCH (08:30)
[2021-12-12] MEDS: GLIMEPIRIDE 2 MG TAB PO SCH (08:31)
[2021-12-12] MEDS: METOPROLOL TARTRATE 25 MG TAB PO SCH ×2 (08:33→20:46)
[2021-12-12 08:38] LABS: INR 1.1 (<1.2); Prothrombin Time 11.4 sec (9.0-12.0)
[2021-12-12] MEDS ORDERED: FUROSEMIDE 20 MG TAB PO SCH (09:00)
--- NOTE | 2021-12-12 10:27 | P.PN ---
Subjective This is a 76-year-old female with a past medical history of paroxysmal atrial fibrillation with RVR 11/28/2021 with spontaneous conversion back to sinus rhythm within 24 hours per chart review, coronary artery disease status post prior PCI to the LAD and left circumflex 04/2021, known severe disease involving the medium size diagonal branch, intermediate lesion involving the RCA, mild ischemic cardiomyopathy with EF of 45%, mild aortic stenosis, peripheral artery disease of the lower extremities (severe bilateral SFA disease), type 2 diabetes, hypertension, dyslipidemia, right renal mass status post partial nephrectomy on 11/24/2021. She follows in the office with Dr. Nieto. We have consults it for congestive heart failure/left ventricular systolic dysfunction/aortic stenosis. Patient presented to the emergency room with complaints of shortness of breath. She was noted to be in congestive heart failure, and noted to be in A. fib with RVR. Patient seen and examined at bedside, no acute distress. Her breathing has improved. She is currently on IV Lasix 40 mg daily. No accurate I/Os, but weight decrease noted. She has no complaints this morning. She is also on IV heparin drip. Telemetry reviewed she is in A. fib with poorly controlled rates. GENERAL: In no acute distress. NECK: Supple without JVD or thyromegaly. LUNGS: Breath sounds diminished in the bases to auscultation bilaterally. Respiration equal and unlabored. No wheezes, rales or rhonchi. HEART: Irregular tachycardic rate and rhythm without murmurs, rubs or gallops. S1 and S2 heard. EXTREMITIES: Normal range of motion, no edema. No clubbing or cyanosis. Per ipheral pulses intact. ASSESSMENT Acute on chronic heart failure with mildly reduced EF 45% Paroxysmal atrial fibrillation with rapid ventricular response CHADSVasc score 5 Mild to moderate aortic stenosis Right renal mass status post partial nephrectomy on 11/24/2021 Coronary artery disease status post prior PCI to the LAD and left circumflex 04/2021, known severe disease involving the medium size diagonal branch, intermediate lesion involving the RCA Mild ischemic cardiomyopathy with EF of 45% Peripheral artery disease of the lower extremities (severe bilateral SFA disease) Type 2 diabetes Hypertension Dyslipidemia PLAN Continue IV Lasix 40mg daily for additional 24 hours, transition to PO tomorrow Monitor I/Os daily weights, renal function and electrolytes Stop IV Heparin, transition to Eliquis 5mg BID Consult case management for coverage Increase metoprolol tartrate 25mg BID Stop IV Cardizem Continue Plavix and statin Patient is on Jardiance outpatient Further recommendations based on clinical course Nurse Practitioner note has been reviewed, I agree with a documented findings and plan of care. Patient was seen and examined. Objective - Vital Signs Vital signs: Vital Signs Temp 97.8 F 12/12/21 05:00 Pulse 90 12/12/21 05:00 Resp 16 12/12/21 05:00 BP 117/74 12/12/21 05:00 Pulse Ox 95 12/12/21 05:00 FiO2 Intake & Output 12/11/21 12/12/21 12/12/21 18:59 06:59 18:59 Intake Total 368.019 Output Total 150 Balance 218.019 Weight 73.936 kg 68.9 kg Intake: Intake, IV Titration 68.019 Amount Heparin Sod,Pork in 0.45% 68.019 NaCl 25,000 unit In 0.45 % NaCl 1 250ml.bag @ 12 UNITS/KG/HR 8.872 mls/hr IV .Q24H [facility] Rx#: [id number] Oral 300 Output: Urine 150 Other: Voiding Method Toilet # Voids 1 - Labs CBC & Chem 7: 12/12/21 07:44 12/11/21 06:01 Labs: Abnormal Lab Results - Last 24 Hours (Table) 12/11/21 12/11/21 12/11/21 Range/Units 06:01 06:01 06:01 WBC 19.33 H (4.50-10.00) X 10*3/uL MCHC 31.8 L (32.0-37.0) g/dL RDW 15.9 H (11.5-14.5) % Absolute Nucleated RBC 0.02 H (0.00-0.00) X 10*3/uL Immature Gran # 0.94 H (0.00-0.04) X 10*3/uL Neutrophils # 14.50 H (1.80-7.70) X 10*3/uL NRBC/100 WBC Diff 0.1 H (0.0-0.0) /100 WBCS APTT (22.0-30.0) sec BUN 39.6 H (9.0-27.0) mg/dL Est GFR (CKD-EPI)AfAm 57.9 L (60.0-200.0) Est GFR (CKD-EPI)NonAf 50.0 L (60.0-200.0) BUN/Creatinine Ratio 36.33 H (12.00-20.00) Ratio Glucose 114 H (70-110) mg/dL POC Glucose (mg/dL) (70-110) mg/dL Conjugated Bilirubin <0.20 L (0.20-0.40) mg/dL ALT 88 H (8-44) U/L Alkaline Phosphatase 136 H (41-126) U/L Total Protein 6.1 L (6.2-8.2) g/dL Albumin 3.7 L (3.8-4.9) g/dL Albumin/Globulin Ratio 1.49 L (1.60-3.17) g/dL Procalcitonin 0.19 H (0.02-0.09) ng/mL 12/11/21 12/11/21 12/11/21 Range/Units 17:11 17:22 20:16 WBC 18.0 H (4.50-10.00) X 10*3/uL MCHC (32.0-37.0) g/dL RDW (11.5-14.5) % Absolute Nucleated RBC (0.00-0.00) X 10*3/uL Immature Gran # (0.00-0.04) X 10*3/uL Neutrophils # 14.1 H (1.80-7.70) X 10*3/uL NRBC/100 WBC Diff (0.0-0.0) /100 WBCS APTT (22.0-30.0) sec BUN (9.0-27.0) mg/dL Est GFR (CKD-EPI)AfAm (60.0-200.0) Est GFR (CKD-EPI)NonAf (60.0-200.0) BUN/Creatinine Ratio (12.00-20.00) Ratio Glucose (70-110) mg/dL POC Glucose (mg/dL) 230 H 252 H (70-110) mg/dL Conjugated Bilirubin (0.20-0.40) mg/dL ALT (8-44) U/L Alkaline Phosphatase (41-126) U/L Total Protein (6.2-8.2) g/dL Albumin (3.8-4.9) g/dL Albumin/Globulin Ratio (1.60-3.17) g/dL Procalcitonin (0.02-0.09) ng/mL 12/12/21 12/12/21 Range/Units 00:36 05:36 WBC (4.50-10.00) X 10*3/uL MCHC (32.0-37.0) g/dL RDW (11.5-14.5) % Absolute Nucleated RBC (0.00-0.00) X 10*3/uL Immature Gran # (0.00-0.04) X 10*3/uL Neutrophils # (1.80-7.70) X 10*3/uL NRBC/100 WBC Diff (0.0-0.0) /100 WBCS APTT 81.7 H (22.0-30.0) sec BUN (9.0-27.0) mg/dL Est GFR (CKD-EPI)AfAm (60.0-200.0) Est GFR (CKD-EPI)NonAf (60.0-200.0) BUN/Creatinine Ratio (12.00-20.00) Ratio Glucose (70-110) mg/dL POC Glucose (mg/dL) 185 H (70-110) mg/dL Conjugated Bilirubin (0.20-0.40) mg/dL ALT (8-44) U/L Alkaline Phosphatase (41-126) U/L Total Protein (6.2-8.2) g/dL Albumin (3.8-4.9) g/dL Albumin/Globulin Ratio (1.60-3.17) g/dL Procalcitonin (0.02-0.09) ng/mL Microbiology - Last 24 Hours (Table) 12/10/21 21:39 Blood Culture - Preliminary Blood No Growth after 24 hours
[2021-12-12 11:12] LABS: Calcium 9.2 mg/dL (8.4-10.2); Potassium 4.8 mmol/L (3.5-5.1)
[2021-12-12 11:57] LABS: Glucose,Whole Blood 247 mg/dL (70-110)
--- NOTE | 2021-12-12 14:01 | P.PN ---
Subjective Progress Note Date: 12/12/21 This is a 76-year-old female familiar to my service, I saw this patient few days ago, and I saw her mostly for postoperative left lower lobe atelectasis, pleural effusion, and acute systolic congestive heart failure as with fluid overload post nephrectomy. Patient had ultrasound of the chest, and the amount of the fluid on the left side was small did not feel that the patient could have a safe thoracentesis. Hence the patient was diuresed, she had a significant clinical improvement, she was initially on high flow oxygen utilizing airvo and high flow cannula, and as the patient started clinically improving she went to room air. Patient was discharged home 2 days ago on room air, however the recommendation was to continue diuretics on this patient and to have incentive spirometry. Patient was discharged home, apparently she did not take any diuretics and she is back to the ER last night complaining of shortness of breath. Indeed her chest x-ray showed evidence of congestive heart failure/interstitial edema, small left pleural effusion and left lower lobe atelectasis. Patient was not hy poxic, she remained on room air all along, she received Lasix while in the ER, and the patient was admitted by the hospitalist, I was asked to see this patient on consultation. Patient is already feeling better since she received the Lasix last night. Went back and reviewed her last echocardiogram from her last admission she had an ejection fraction of 45%. At any rate I am recommending that the patient goes again on diuretics, and repeat chest x-ray in the next 24 hours. I also recommended cardiology to evaluate the patient. Patient denies any fever no chills, no hemoptysis, no chest pain. Her cough is productive with clear phlegm. However the patient did have leukocytosis with WBC count of 26.0, she had a creatinine of 1.31, elevated BNP of 3440, pro-calcitonin is pending at the time of this dictation. Patient will also had slightly elevated troponin of 0.209. The patient was seen today 12/12/2021 in follow-up on the regular medical floor. She is awake and alert in no acute distress. Sitting up in a chair at the bedside. No worsening shortness of breath, cough or congestion. Maintaining good O2 saturations in the 90s on room air. White count 15.6. Hemoglobin 12.7. Sodium 139. Potassium 4.8. BUN 38. Creatinine 1.18. She is been in atrial fibrillation. Currently on a heparin drip. Continued on IV diuretics. No accurate I&O recorded. Culture reveals no growth to date. Objective - Vital Signs Vital signs: Vital Signs Temp 97.5 F L 12/12/21 08:00 Pulse 95 12/12/21 12:00 Resp 18 12/12/21 12:00 BP 113/76 12/12/21 12:00 Pulse Ox 95 12/12/21 12:00 FiO2 Intake & Output 12/11/21 12/12/21 12/12/21 18:59 06:59 18:59 Intake Total 368.019 240 Output Total 150 500 Balance 218.019 -260 Weight 73.936 kg 68.9 kg Intake: Intake, IV Titration 68.019 Amount Heparin Sod,Pork in 0.45% 68.019 NaCl 25,000 unit In 0.45 % NaCl 1 250ml.bag @ 12 UNITS/KG/HR 8.872 mls/hr IV .Q24H [facility] Rx#: [id number] Oral 300 240 Output: Urine 150 500 Other: Voiding Method Toilet # Voids 1 800 - Exam GENERAL EXAM: Alert, active, 76-year-old female, on room air, comfortable in no apparent distress. HEAD: Normocephalic. EYES: Normal reaction of pupils, equal size. NOSE: Clear with pink turbinates. THROAT: No erythema or exudates. NECK: No masses, no JVD. CHEST: No chest wall deformity. LUNGS: Equal air entry with no crackles, wheeze, rhonchi or dullness. CVS: S1 and S2 normal with no audible murmur, irregular rhythm. ABDOMEN: No hepatosplenomegaly, normal bowel sounds, no guarding or rigidity. SPINE: No scoliosis or deformity SKIN: No rashes CENTRAL NERVOUS SYSTEM: No focal deficits, tone is normal in all 4 extremities. EXTREMITIES: There is no peripheral edema. No clubbing, no cyanosis. Peripheral pulses are intact. - Labs CBC & Chem 7: 12/12/21 07:44 12/12/21 07:44 Labs: Abnormal Lab Results - Last 24 Hours (Table) 12/11/21 12/11/21 12/11/21 Range/Units 17:11 17:22 17:22 WBC 18.0 H (3.8-10.6) k/uL RDW (11.5-15.5) % Neutrophils # 14.1 H (1.3-7.7) k/uL APTT (22.0-30.0) sec BUN (7-17) mg/dL Creatinine (0.52-1.04) mg/dL Glucose (74-99) mg/dL POC Glucose (mg/dL) 230 H (70-110) mg/dL Hemoglobin A1c 7.0 H (0.0-6.0) % 12/11/21 12/12/21 12/12/21 Range/Units 20:16 00:36 05:36 WBC (3.8-10.6) k/uL RDW (11.5-15.5) % Neutrophils # (1.3-7.7) k/uL APTT 81.7 H (22.0-30.0) sec BUN (7-17) mg/dL Creatinine (0.52-1.04) mg/dL Glucose (74-99) mg/dL POC Glucose (mg/dL) 252 H 185 H (70-110) mg/dL Hemoglobin A1c (0.0-6.0) % 12/12/21 12/12/21 12/12/21 Range/Units 07:44 07:44 07:44 WBC 15.6 H (3.8-10.6) k/uL RDW 15.7 H (11.5-15.5) % Neutrophils # 11.5 H (1.3-7.7) k/uL APTT 61.0 H (22.0-30.0) sec BUN 38 H (7-17) mg/dL Creatinine 1.18 H (0.52-1.04) mg/dL Glucose 169 H (74-99) mg/dL POC Glucose (mg/dL) (70-110) mg/dL Hemoglobin A1c (0.0-6.0) % 12/12/21 Range/Units 11:53 WBC (3.8-10.6) k/uL RDW (11.5-15.5) % Neutrophils # (1.3-7.7) k/uL APTT (22.0-30.0) sec BUN (7-17) mg/dL Creatinine (0.52-1.04) mg/dL Glucose (74-99) mg/dL POC Glucose (mg/dL) 247 H (70-110) mg/dL Hemoglobin A1c (0.0-6.0) % Microbiology - Last 24 Hours (Table) 12/10/21 21:39 Blood Culture - Preliminary Blood No Growth after 24 hours Assessment and Plan Assessment: Acute exacerbation of chronic systolic congestive heart failure Ischemic cardiomyopathy and LV dysfunction ejection fraction 45%. Paroxysmal atrial fibrillation with RVR Left lower lobe atelectasis, doubt pneumonia this was a postoperative atelectasis with left pleural effusion and it was relatively small for safe thoracentesis. Remains small, and thoracentesis is not necessary. Elevated troponin Recent robotic partial right nephrectomy consistent with renal cell carcinoma Acute kidney injury Type 2 diabetes Benign essential hypertension Dyslipidemia Coronary arteriosclerosis and previous stents. Plan: The patient was seen and evaluated Currently stable and on room air Remains on heparin drip for A. fib Continued on IV diuretics Increase her activity as tolerated We will continue to follow I have personally seen and examined the patient, performed the documentation and the assessment and plan as written. Number of minutes spent on the visit: 10.
[2021-12-12 17:06] LABS: Glucose,Whole Blood 279 mg/dL (70-110)
[2021-12-12] MEDS ORDERED: DILTIAZEM DRIP BOLUS FROM BAG 1 MG SOLN IV ONE (20:10)
[2021-12-12 20:27] LABS: Glucose,Whole Blood 311 mg/dL (70-110)
[2021-12-12] MEDS: DILTIAZEM 125 MG in SODIUM CHLORIDE 0.9% 100 ML IV SCH (20:46)
[2021-12-12] MEDS: ATORVASTATIN 80 MG TAB PO SCH (20:46)
[2021-12-12] MEDS ORDERED: DEXTROSE 50% SYRINGE 50 ML IVP PRN (22:25)
--- NOTE | 2021-12-12 22:41 | P.PN ---
Subjective Progress Note Date: 12/12/21 This is a pleasant 76 years old female who was discharged from the hospital yesterday for bilateral pneumonia complicating her right nephrectomy for her right renal cell carcinoma. She was discharged home but states she does not feel well patient was recently discharged from the hospital 11/23-12/09 after resection of right kidney mass with renal cell carcinoma. Associated with pneumonia. Patient presents with shortness of breath both at rest and with exertion associated with some cough but no flaps coming up Patient was feeling chills and clammy and sweaty She had total diarrhea last night. No abdominal pain. Patient Vitas looks stable and patient is afebrile Labs showing worsening leukocytosis 17 up to 26,000. Risks of CBC, INR is unremarkable. Creatinine worsened 1.0-1.3. Liver enzymes were sent with AST 49 and a 5109. Troponin elevated 0.2 TRENDED down from 41 about 10 days ago. ProBN P is only mildly elevated 3440. EKG showing normal sinus rhythm at 73 with chest x-ray showed congestive heart failure with left pleural effusion. Left lower lobe pneumonias possible acute CHF Possible left lower lobe pneumonia Patient is started on Zosyn 12/12/2021 Patient evaluated today sitting up in chair. Reports shortness of breath improving and is able to ambulate without loosing breath. She has been taken off the cardizem gtt and started back on metoprolol. Heart rate ranging from 90s to 120s. She continues on IV lasix 40 mg daily. Started on oral eliquis today. Creatinine today 1.18. A1C is increased from previous admission up to 7.0, blood glucose in the 300s. Medications will be adjusted. Procalcitonin 0.19. Review of Systems Constitutional: Denied any fatigue denied any fever. Cardio vascular: denied any chest pain, palpitations Gastrointestinal: denied any nausea, vomiting, diarrhea, reports right sided rib pain and lower abdominal pain. Pulmonary: Denied any shortness of breath cough Neurologic denied any new focal deficits All inpatient medications were reviewed and appropriate changes in these medications as dictated in the interval history and assessment and plan. PHYSICAL EXAMINATION: GENERAL: The patient is alert and oriented x3, not in any acute distress. Well developed, well nourished. HEENT: Pupils are round and equally reacting to light. EOMI. No scleral icterus. No conjunctival pallor. Normocephalic, atraumatic. No pharyngeal erythema. No thyromegaly. CARDIOVASCULAR: S1 and S2 present. Murmur PULMONARY: Chest is clear to auscultation, no wheezing or crackles. ABDOMEN: Soft, nontender, nondistended, normoactive bowel sounds. No palpable organomegaly. MUSCULOSKELETAL: No joint swelling or deformity. EXTREMITIES: No cyanosis, clubbing, or pedal edema. NEUROLOGICAL: Gross neurological examination did not reveal any focal deficits. SKIN: No rashes. Assessment and Plan Assessment Acute systolic heart failure exacerbation \ Paroxysmal atrial fibrillation with rapid ventricular rate Mild to moderate aortic stenosis Mild ischemic cardiomyopathy with EF 45% Troponin elevation secondary to type 2 VT, managed medically Acute renal injury improving Left lower lobe atelectasis, procalcitonin 0.19, most likely not pneumonia Status post robotic partial right nephrectomy with pathology: Renal cell carcinoma with clear margin, new diagnosis Elevated liver enzymes Diabetes mellitus type 2 Hypertension currently blood pressure is 100 systolic Hyperlipidemia History coronary artery disease status post cardiac stents in the past GI Prophylaxis DVT Prophylaxis Full Code Plan Continue IV lasix strict intake and output Pending finalized cultures so far negative Pulmonary, cardiology consultation Repeat BMP in AM Insulin coverage has been increased Encourage incentive spirometry The impression and plan of care has been dictated by Irma Alvarado Nurse Practitioner as directed. Dr. Ian MD I have performed a history and physical examination and medical decision making of this patient, discussed the same with the dictator, and agree with the dictators assessment and plan as written, documented as a scribe. Based on total visit time, I have performed more than 50% of this visit. Objective - Vital Signs Vital signs: Vital Signs Temp 97.5 F L 12/12/21 08:00 Pulse 95 12/12/21 12:00 Resp 18 12/12/21 12:00 BP 113/76 12/12/21 12:00 Pulse Ox 95 12/12/21 12:00 FiO2 Intake & Output 12/11/21 12/12/21 12/12/21 18:59 06:59 18:59 Intake Total 368.019 480 Output Total 150 500 Balance 218.019 -20 Weight 73.936 kg 68.9 kg Intake: Intake, IV Titration 68.019 Amount Heparin Sod,Pork in 0.45% 68.019 NaCl 25,000 unit In 0.45 % NaCl 1 250ml.bag @ 12 UNITS/KG/HR 8.872 mls/hr IV .Q24H [facility] Rx#: [id number] Oral 300 480 Output: Urine 150 500 Other: Voiding Method Toilet # Voids 1 800 - Labs CBC & Chem 7: 12/12/21 07:44 12/12/21 07:44 Labs: Abnormal Lab Results - Last 24 Hours (Table) 12/11/21 12/11/21 12/11/21 Range/Units 17:11 17:22 17:22 WBC 18.0 H (3.8-10.6) k/uL RDW (11.5-15.5) % Neutrophils # 14.1 H (1.3-7.7) k/uL APTT (22.0-30.0) sec BUN (7-17) mg/dL Creatinine (0.52-1.04) mg/dL Glucose (74-99) mg/dL POC Glucose (mg/dL) 230 H (70-110) mg/dL Hemoglobin A1c 7.0 H (0.0-6.0) % 12/11/21 12/12/21 12/12/21 Range/Units 20:16 00:36 05:36 WBC (3.8-10.6) k/uL RDW (11.5-15.5) % Neutrophils # (1.3-7.7) k/uL APTT 81.7 H (22.0-30.0) sec BUN (7-17) mg/dL Creatinine (0.52-1.04) mg/dL Glucose (74-99) mg/dL POC Glucose (mg/dL) 252 H 185 H (70-110) mg/dL Hemoglobin A1c (0.0-6.0) % 12/12/21 12/12/21 12/12/21 Range/Units 07:44 07:44 07:44 WBC 15.6 H (3.8-10.6) k/uL RDW 15.7 H (11.5-15.5) % Neutrophils # 11.5 H (1.3-7.7) k/uL APTT 61.0 H (22.0-30.0) sec BUN 38 H (7-17) mg/dL Creatinine 1.18 H (0.52-1.04) mg/dL Glucose 169 H (74-99) mg/dL POC Glucose (mg/dL) (70-110) mg/dL Hemoglobin A1c (0.0-6.0) % 12/12/21 Range/Units 11:53 WBC (3.8-10.6) k/uL RDW (11.5-15.5) % Neutrophils # (1.3-7.7) k/uL APTT (22.0-30.0) sec BUN (7-17) mg/dL Creatinine (0.52-1.04) mg/dL Glucose (74-99) mg/dL POC Glucose (mg/dL) 247 H (70-110) mg/dL Hemoglobin A1c (0.0-6.0) % Microbiology - Last 24 Hours (Table) 12/10/21 21:39 Blood Culture - Preliminary Blood No Growth after 24 hours Assessment and Plan Time with Patient: Less than 30
[2021-12-12] MEDS ORDERED: INSULIN DETEMIR (LEVEMIR) 100 UNIT/ML SYR SQ SCH (23:00)
[2021-12-13 06:24] LABS: Glucose,Whole Blood 120 mg/dL (70-110)
[2021-12-13] MEDS: INSULIN ASPART (NovoLOG) 100 UNIT/ML VIAL SQ SCH ×6 (06:35→17:11)
[2021-12-13 09:18] VITALS: RESP 18; TEMP 98.3
[2021-12-13] MEDS: DAPAGLIFLOZIN PROPANEDIOL 5 MG TABLET PO SCH (09:19)
[2021-12-13] MEDS: GLIMEPIRIDE 2 MG TAB PO SCH (09:20)
[2021-12-13] MEDS: APIXABAN 5 MG TAB PO SCH (09:20)
[2021-12-13] MEDS: METOPROLOL TARTRATE 25 MG TAB PO SCH (09:20)
[2021-12-13] MEDS: CLOPIDOGREL 75 MG TAB PO SCH (09:20)
[2021-12-13] MEDS: FUROSEMIDE 10 MG/ML 4 ML VIAL IV SCH (09:20)
[2021-12-13] MEDS: amLODIPine 10 MG TAB PO SCH (09:20)
[2021-12-13] MEDS ORDERED: METOPROLOL TARTRATE 25 MG TAB PO STA (09:22)
[2021-12-13 09:23] LABS: Potassium 4.2 mmol/L (3.5-5.1)
[2021-12-13] MEDS: DILTIAZEM 125 MG in SODIUM CHLORIDE 0.9% 100 ML IV SCH (09:32)
--- NOTE | 2021-12-13 10:34 | P.PN ---
Subjective This is a 76-year-old female with a past medical history of paroxysmal atrial fibrillation with RVR 11/28/2021 with spontaneous conversion back to sinus rhythm within 24 hours per chart review, coronary artery disease status post prior PCI to the LAD and left circumflex 04/2021, known severe disease involving the medium size diagonal branch, intermediate lesion involving the RCA, mild ischemic cardiomyopathy with EF of 45%, mild aortic stenosis, peripheral artery disease of the lower extremities (severe bilateral SFA disease), type 2 diabetes, hypertension, dyslipidemia, right renal mass status post partial nephrectomy on 11/24/2021. She follows in the office with Dr. Nieto. We have consults it for congestive heart failure/left ventricular systolic dysfunction/aortic stenosis. Patient presented to the emergency room with complaints of shortness of breath. She was noted to be in congestive heart failure, and noted to be in A. fib with RVR. 12/13/2021 Patient seen and examined at bedside, no acute distress. Her breathing has improved, she is feelin back to baseling. She is currently on IV Lasix 40 mg daily. 1.2L urine output over the past 24 hours, weight decrease noted. She has no complaints this morning. She has been transitioned to Eliquis 5mg BID. Telemetry reviewed she is in sinus rhythm HR 50s-60s she went into A fib with RVR overnight IV Cardizem started and converted to SR. GENERAL: In no acute distress. NECK: Supple without JVD or thyromegaly. LUNGS: Breath sounds diminished in the bases to auscultation bilaterally. Respiration equal and unlabored. No wheezes, rales or rhonchi. HEART: Regular rate and rhythm without murmurs, rubs or gallops. S1 and S2 heard. EXTREMITIES: Normal range of motion, no edema. No clubbing or cyanosis. Peripheral pulses intact. ASSESSMENT Acute on chronic heart failure with mildly reduced EF 45% Paroxysmal atrial fibrillation with rapid ventricular response CHADSVasc score 5 Mild to moderate aortic stenosis Right renal mass status post partial nephrectomy on 11/24/2021 Coronary artery disease status post prior PCI to the LAD and left circumflex 04/2021, known severe disease involving the medium size diagonal branch, intermediate lesion involving the RCA Mild ischemic cardiomyopathy with EF of 45% Peripheral artery disease of the lower extremities (severe bilateral SFA disease) Type 2 diabetes Hypertension Dyslipidemia PLAN Transition to PO Lasix Continue Eliquis 5mg BID Case management consulted for coverage Increase metoprolol tartrate 50mg BID Stop IV Cardizem Continue Plavix and statin Patient is on Jardiance outpatient From a cardiology perspective, patient stable to be discharged home later today. Follow up outpatient with Dr. Nieto in 1-2 weeks. Nurse Practitioner note has been reviewed, I agree with a documented findings and plan of care. Patient was seen and examined. Objective - Vital Signs Vital signs: Vital Signs Temp 98.3 F 12/13/21 09:15 Pulse 63 12/13/21 10:17 Resp 18 12/13/21 10:17 BP 116/68 12/13/21 09:15 Pulse Ox 95 12/13/21 09:15 FiO2 Intake & Output 12/12/21 12/13/21 12/13/21 18:59 06:59 18:59 Intake Total 720 240 Output Total 1200 0 Balance -480 0 240 Weight 68 kg 67.8 kg Intake: Oral 720 240 Output: Urine 1200 0 Other: Voiding Method Toilet Toilet Toilet # Voids 800 - Labs CBC & Chem 7: 12/12/21 07:44 12/13/21 07:52 Labs: Abnormal Lab Results - Last 24 Hours (Table) 12/12/21 12/12/21 12/12/21 Range/Units 07:44 11:53 16:53 BUN 38 H (7-17) mg/dL Creatinine 1.18 H (0.52-1.04) mg/dL Glucose 169 H (74-99) mg/dL POC Glucose (mg/dL) 247 H 279 H (70-110) mg/dL 12/12/21 12/13/21 12/13/21 Range/Units 20:26 06:22 07:52 BUN 42 H (7-17) mg/dL Creatinine 1.33 H (0.52-1.04) mg/dL Glucose 194 H (74-99) mg/dL POC Glucose (mg/dL) 311 H 120 H (70-110) mg/dL Microbiology - Last 24 Hours (Table) 12/10/21 21:39 Blood Culture - Preliminary Blood No Growth after 48 hours
[2021-12-13 12:04] LABS: Glucose,Whole Blood 129 mg/dL (70-110)
--- NOTE | 2021-12-13 14:05 | P.PN ---
Subjective Progress Note Date: 12/13/21 This is a 76-year-old female familiar to my service, I saw this patient few days ago, and I saw her mostly for postoperative left lower lobe atelectasis, pleural effusion, and acute systolic congestive heart failure as with fluid overload post nephrectomy. Patient had ultrasound of the chest, and the amount of the fluid on the left side was small did not feel that the patient could have a safe thoracentesis. Hence the patient was diuresed, she had a significant clinical improvement, she was initially on high flow oxygen utilizing airvo and high flow cannula, and as the patient started clinically improving she went to room air. Patient was discharged home 2 days ago on room air, however the recommendation was to continue diuretics on this patient and to have incentive spirometry. Patient was discharged home, apparently she did not take any diuretics and she is back to the ER last night complaining of shortness of breath. Indeed her chest x-ray showed evidence of congestive heart failure/interstitial edema, small left pleural effusion and left lower lobe atelectasis. Patient was not hy poxic, she remained on room air all along, she received Lasix while in the ER, and the patient was admitted by the hospitalist, I was asked to see this patient on consultation. Patient is already feeling better since she received the Lasix last night. Went back and reviewed her last echocardiogram from her last admission she had an ejection fraction of 45%. At any rate I am recommending that the patient goes again on diuretics, and repeat chest x-ray in the next 24 hours. I also recommended cardiology to evaluate the patient. Patient denies any fever no chills, no hemoptysis, no chest pain. Her cough is productive with clear phlegm. However the patient did have leukocytosis with WBC count of 26.0, she had a creatinine of 1.31, elevated BNP of 3440, pro-calcitonin is pending at the time of this dictation. Patient will also had slightly elevated troponin of 0.209. The patient was seen today 12/12/2021 in follow-up on the regular medical floor. She is awake and alert in no acute distress. Sitting up in a chair at the bedside. No worsening shortness of breath, cough or congestion. Maintaining good O2 saturations in the 90s on room air. White count 15.6. Hemoglobin 12.7. Sodium 139. Potassium 4.8. BUN 38. Creatinine 1.18. She is been in atrial fibrillation. Currently on a heparin drip. Continued on IV diuretics. No accurate I&O recorded. Culture reveals no growth to date. The patient is seen today 12/13/2021 in follow-up on the regular medical floor. She is currently sitting up in a chair at the bedside. Awake and alert in no acute distress. No worsening shortness of breath, cough or congestion. Maintaining good O2 saturations in the 90s on room air. Blood cultures reveal no growth. Sodium 140. Potassium 4.2. BUN 42. Creatinine 1.33. Glucose 194. She is currently on oral diuretics. Anticoagulated with Eliquis. Objective - Vital Signs Vital signs: Vital Signs Temp 98.3 F 12/13/21 09:15 Pulse 51 L 12/13/21 12:16 Resp 18 12/13/21 12:16 BP 115/63 12/13/21 12:16 Pulse Ox 94 L 12/13/21 12:16 FiO2 Intake & Output 12/12/21 12/13/21 12/13/21 18:59 06:59 18:59 Intake Total 720 240 Output Total 1200 0 Balance -480 0 240 Weight 68 kg 67.8 kg Intake: Oral 720 240 Output: Urine 1200 0 Other: Voiding Method Toilet Toilet Toilet # Voids 800 - Exam GENERAL EXAM: Alert, active, 76-year-old female, on room air, up in a chair, comfortable in no apparent distress. HEAD: Normocephalic. EYES: Normal reaction of pupils, equal size. NOSE: Clear with pink turbinates. THROAT: No erythema or exudates. NECK: No masses, no JVD. CHEST: No chest wall deformity. LUNGS: Equal air entry with no crackles, wheeze, rhonchi or dullness. CVS: S1 and S2 normal with no audible murmur, irregular rhythm. ABDOMEN: No hepatosplenomegaly, normal bowel sounds, no guarding or rigidity. SPINE: No scoliosis or deformity SKIN: No rashes CENTRAL NERVOUS SYSTEM: No focal deficits, tone is normal in all 4 extremities. EXTREMITIES: There is no peripheral edema. No clubbing, no cyanosis. Peripheral pulses are intact. - Labs CBC & Chem 7: 12/12/21 07:44 12/13/21 07:52 Labs: Abnormal Lab Results - Last 24 Hours (Table) 12/12/21 12/12/21 12/13/21 Range/Units 16:53 20:26 06:22 BUN (7-17) mg/dL Creatinine (0.52-1.04) mg/dL Glucose (74-99) mg/dL POC Glucose (mg/dL) 279 H 311 H 120 H (70-110) mg/dL 12/13/21 12/13/21 Range/Units 07:52 12:00 BUN 42 H (7-17) mg/dL Creatinine 1.33 H (0.52-1.04) mg/dL Glucose 194 H (74-99) mg/dL POC Glucose (mg/dL) 129 H (70-110) mg/dL Microbiology - Last 24 Hours (Table) 12/10/21 21:39 Blood Culture - Preliminary Blood No Growth after 48 hours Assessment and Plan Assessment: Acute exacerbation of chronic systolic congestive heart failure Ischemic cardiomyopathy and LV dysfunction ejection fraction 45%. Paroxysmal atrial fibrillation with RVR, currently in sinus with a controlled ventricular rate in the anticoagulant with Eliquis Left lower lobe atelectasis, doubt pneumonia this was a postoperative atelectasis with left pleural effusion and it was relatively small not for safe thoracentesis. Elevated troponin Recent robotic partial right nephrectomy consistent with renal cell carcinoma Acute kidney injury Type 2 diabetes Benign essential hypertension Dyslipidemia Coronary arteriosclerosis and previous stents. Plan: The patient was seen and evaluated Labs and medications reviewed Currently stable and on room air Back on Eliquis Transitioned to oral diuretics Increase her activity as tolerated Home once cleared by cardiology I have personally seen and examined the patient, performed the documentation and the assessment and plan as written. Number of minutes spent on the visit: 10.
[2021-12-13 16:42] LABS: Glucose,Whole Blood 240 mg/dL (70-110)
[2021-12-13 17:12] VITALS: BP 126/71; PULSE 60
[2021-12-13] MEDS ORDERED: METOPROLOL TARTRATE 50 MG TAB PO SCH (21:00)
[2021-12-14] MEDS ORDERED: FUROSEMIDE 40 MG TAB PO SCH (09:00)
[2021-12-14] MEDS ORDERED: amLODIPine 5 MG TAB PO SCH (09:00)
--- NOTE | 2021-12-14 22:48 | P.DS ---
Providers Date of admission: 12/10/21 20:52 Attending physician: Max Enrique MD Consults: 12/10/21 20:58 Consult Physician Routine Consulting Provider: Dayna Carvajal Consult Reason/Comments: Hospital-acquired pneumonia Do you want consulting provider notified?: Yes, Notify in am 12/11/21 08:34 Consult Physician Routine Consulting Provider: Rashaun Ahuja Consult Reason/Comments: chf/lv dysfunction/ Do you want consulting provider notified?: Yes, Notify in am Primary care physician: Haritha Villatoro Hospital Course: Final Diagnosis Acute systolic heart failure exacerbation Paroxysmal atrial fibrillation with rapid ventricular rate Mild to moderate aortic stenosis Mild ischemic cardiomyopathy with EF 45% Troponin elevation secondary to type 2 TN, managed medically Acute renal injury improving Left lower lobe atelectasis, procalcitonin 0.19, most likely not pneumonia Status post robotic partial right nephrectomy with pathology: Renal cell carcinoma with clear margin, new diagnosis Elevated liver enzymes Diabetes mellitus type 2 Hypertension currently blood pressure is 100 systolic Hyperlipidemia History coronary artery disease status post cardiac stents in the past Full Code Discharge Disposition Patient is stable for discharge home. She has been cleared by consulations. Maintaining oxygen saturation on room air. Currently maintaining normal sinus rhythm. New medications include eliquis 5 mg twice a day, jardiance has been increased to 25 mg po daily. Hospital Course This is a pleasant 76 years old female who was discharged from the hospital on 12/09/21 for bilateral pneumonia complicating her right nephrectomy for her right renal cell carcinoma. She was discharged home but states she does not feel well patient was recently discharged from the hospital 11/23-12/09 after resection of right kidney mass with renal cell carcinoma. Hospital stay was complicated by pneumonia requiring intensive care unit and hi flow oxygen. She was discharged home once stabilized. Patient presents with shortness of breath both at rest and with exertion associated with some non productive cough. Patient was feeling chills and clammy and sweaty with associated diarrhea. She also states she was not discharged on diuretics and noted some lower extremity swelling as well. She was found to be acute systolic heart failure, proBNP elevated at 3440. She also had leukocytosis 26 on admission. Chest xray showing CHF left pleural effusion. She was started on zosyn empirically. Patient also started on IV lasix. She also as found to have atrial fibrillation with rapid ventricular rate and was on cardizem gtt. Eliquis was started this hospital stay. Patient was diuresed well and symptoms improved. Procalcitonin found to be 0.19 and patient will be monitored off antibiotics. Blood glucose elevated this admission as well in the 250s and A1C 7.0. Oral diabetic mediations increased on discharge. 12/13/2021 Patient evaluated today sitting up in chair. Reports shortness of breath is improved. Reports no chest pain, no palpitations. Cardizem gtt has been discontinued and medications have been adjusted by cardiology. Heart rate is controlled. White count has improved to 15.6. Sodium 140, potassium 4.2, BUN 42, creatinine 1.33. creatinine did improve than trend upwards was maintained on IV lasix. Lungs are clear, S1 S2 auscultated abdomen is soft and nontender. Focal neurological exam is negative. No peripheral edema. Patient is afebrile, heart rate 60, blood pressure 126/71, 96% room air. Please see medication reconciliation for a list of current medications. Thank vijay contreras for allowing us to participate in the care of this patient. The impression and plan of care has been dictated by Irma Alvarado, Nurse Practitioner as directed. Dr. Ian MD I have performed a history and physical examination and medical decision making of this patient, discussed the same with the dictator, and agree with the dictators assessment and plan as written, documented as a scribe. Based on total visit time, I have performed more than 50% of this visit. Patient Condition at Discharge: Stable Plan - Discharge Summary New Discharge Prescriptions: New Apixaban [Eliquis] 5 mg PO BID #180 tab Furosemide [Lasix] 40 mg PO DAILY #30 tab amLODIPine [Norvasc] 5 mg PO DAILY #30 tab Acetaminophen Tab [Tylenol] 650 mg PO Q6HR PRN tab PRN Reason: Mild Pain Or Fever > 100.5 Empagliflozin [Jardiance] 25 mg PO DAILY #30 tablet Metoprolol Tartrate [Lopressor] 50 mg PO BID #60 tab Continue Atorvastatin [Lipitor] 80 mg PO HS Albuterol Inhaler [Ventolin Hfa Inhaler] 1 - 2 puff INHALATION Q6H PRN #1 each PRN Reason: Shortness Of Breath Or Wheezing Aspirin 81 mg PO DAILY 30 Days #30 Clopidogrel [Plavix] 75 mg PO DAILY Nitroglycerin Sl Tabs [Nitrostat] 0.4 mg SUBLINGUAL Q5M PRN PRN Reason: Chest Pain Healty Eyes 1 tab PO DAILY Changed Glimepiride [Amaryl] 2 mg PO DAILY #0 Discontinued Empagliflozin [Jardiance] 10 mg PO DAILY metFORMIN HCL 1,000 mg PO BID Metoprolol Tartrate [Lopressor] 12.5 mg PO BID #60 tab amLODIPine [Norvasc] 10 mg PO DAILY #30 tab Discharge Medication List Aspirin 81 mg PO DAILY 30 Days #30 05/11/21 [Rx] Clopidogrel [Plavix] 75 mg PO DAILY 06/22/21 [History] Nitroglycerin Sl Tabs [Nitrostat] 0.4 mg SUBLINGUAL Q5M PRN 06/22/21 [History] Atorvastatin [Lipitor] 80 mg PO HS 11/22/21 [History] Healty Eyes 1 tab PO DAILY 11/22/21 [History] Albuterol Inhaler [Ventolin Hfa Inhaler] 1 - 2 puff INHALATION Q6H PRN #1 each 12/09/21 [Rx] Apixaban [Eliquis] 5 mg PO BID #180 tab 12/12/21 [Rx] Acetaminophen Tab [Tylenol] 650 mg PO Q6HR PRN tab 12/13/21 [Rx] Empagliflozin [Jardiance] 25 mg PO DAILY #30 tablet 12/13/21 [Rx] Furosemide [Lasix] 40 mg PO DAILY #30 tab 12/13/21 [Rx] Glimepiride [Amaryl] 2 mg PO DAILY #0 12/13/21 [Rx] Metoprolol Tartrate [Lopressor] 50 mg PO BID #60 tab 12/13/21 [Rx] amLODIPine [Norvasc] 5 mg PO DAILY #30 tab 12/13/21 [Rx] Follow up Appointment(s)/Referral(s): Corinne Hawley MD [STAFF PHYSICIAN] - 1 Week (please call and make appointment ) Haritha Villatoro MD [Primary Care Provider] - 12/19/21 2:30 pm (please wear a mask to the office) Roldan Nieto MD [STAFF PHYSICIAN] - 12/23/21 11:15 am Juvenal Del Cid MD [STAFF PHYSICIAN] - 03/10/22 10:20 Alex Benitez DO [Doctor of Osteopathic Medicine] - 01/09/22 1:00 pm [facility], [NON-STAFF] - Ambulatory/Diagnostic Orders: Basic Metabolic Panel [LAB.AMB] Time Frame: 2 Days, Location: None Selected Patient Instructions/Handouts: Heart Failure (DC) Activity/Diet/Wound Care/Special Instructions: Continue holding metformin Amaryl decreased to 2 mg PO daily Jardiance has been increased to 25 mg PO daily Monitor blood glucose at home. Activity limited until follow up Scale has been provided Monitor weight at same time everyday and keep log for follow up appointment at cardiology Notify provider of increase in weight 2 to 3 lbs overnight 5 to 7 lbs in a week Discharge Disposition: HOME WITH HOME HEALTH SERVICES
== END 2021-12-13 17:43 | disposition home health service (06) | DRG 280 ==
LOC: EC 18:15 → 4SSUR 20:52 → 3SCARD 12-11 17:08
PROVIDERS: ADMIT Internal Medicine; ATTEND Internal Medicine
DX: I11.0 Hypertensive heart disease with heart failure (principal); I21.A1 Myocardial infarction type 2; I50.23 Acute on chronic systolic (congestive) heart failure; N17.9 Acute kidney failure, unspecified; J98.11 Atelectasis; C64.1 Malignant neoplasm of right kidney, except renal pelvis; I25.10 Atherosclerotic heart disease of native coronary artery without angina pectoris; I48.0 Paroxysmal atrial fibrillation; I35.0 Nonrheumatic aortic (valve) stenosis; I25.5 Ischemic cardiomyopathy; Z87.01 Personal history of pneumonia (recurrent); E11.51 Type 2 diabetes mellitus with diabetic peripheral angiopathy without gangrene; R94.5 Abnormal results of liver function studies; E11.65 Type 2 diabetes mellitus with hyperglycemia; E78.5 Hyperlipidemia, unspecified; F41.9 Anxiety disorder, unspecified; I25.2 Old myocardial infarction; Z79.01 Long term (current) use of anticoagulants; Z79.02 Long term (current) use of antithrombotics/antiplatelets; Z79.82 Long term (current) use of aspirin; Z79.84 Long term (current) use of oral hypoglycemic drugs; Z79.899 Other long term (current) drug therapy; Z82.49 Family history of ischemic heart disease and other diseases of the circulatory system; Z90.5 Acquired absence of kidney; Z90.710 Acquired absence of both cervix and uterus; Z95.5 Presence of coronary angioplasty implant and graft; Z60.2 Problems related to living alone
CPT/HCPCS: 36415; 71046; 80048; 80053; 80076; 83036; 83605; 83735; 83880; 84145; 84484; 85025; 85610; 85730; 87040; 93005; 96374; 96376; 99285

== ENCOUNTER 2022-01-13 11:04 | Inpatient (IN) | payer MEDICARE, OTHER ==
[2022-01-13] MEDS ORDERED: NITROGLYCERIN SL TABS 0.4 MG TAB SUBLINGUAL STA (11:19)
--- NOTE | 2022-01-13 11:25 | ED ---
General Adult HPI - General Chief complaint: Shortness of Breath Stated complaint: SOB, chest pain Time Seen by Provider: 01/13/22 11:09 Source: EMS Mode of arrival: EMS Limitations: no limitations - History of Present Illness Initial comments: Dictation was produced using [employer] dictation software. please excuse any grammatical, word or spelling errors. Chief Complaint: 77-year-old female presents to the emergency department for sh ortness of breath. History of Present Illness: 77-year-old female she has multiple cardiac comorbi dities. For the last 2 days she's been having worsening shortness of breath. Patient is a history of heart failure, atrial fibrillation, diabetes. Patient states her symptoms began yesterday. She is brought in by EMS. EMS noticed that patient was initially hypoxic. She is put on supplemental oxygen with improvement of her oxygenation to the mid 80 percents. Patient does report associated chest pressure. She is substernal. She states that it is associated diaphoresis. Patient states that the pressure is mild at the moment. Nonradiating. Patient is a history of catheterization with coronary artery disease. Most recently from June 23 this year. The ROS documented in this emergency department record has been reviewed and confirmed by me. Those systems with pertinent positive or negative responses have been documented in the HPI. All other systems are other negative and/or noncontributory. PHYSICAL EXAM: General Impression: Alert and oriented x3, not in acute distress HEENT: Normocephalic atraumatic, extra-ocular movements intact, pupils equal and reactive to light bilaterally, mucous membranes moist. Cardiovascular: Heart regular rate and rhythm Chest: Able to complete full sentences, no retractions, no tachypnea, diffuse crackles Abdomen: abdomen soft, non-tender, non-distended, no organomegaly Musculoskeletal: Pulses present and equal in all extremities, no peripheral edema Motor: no focal deficits noted Neurological: CN II-XII grossly intact, no focal motor or sensory deficits noted Skin: Intact with no visualized rashes Psych: Normal affect and mood ED course: 77-year-old female brought in from home by EMS for chief complaint of shortness of breath. Patient initially hypoxic and is requiring supplemental oxygen. She does have evidence of heart failure with crackles in the lungs. Vital signs upon arrival shows 80% on 2 L nonrebreather. [facility] care bedside ultrasound shows diffuse B lines in the upper lung goodrich suggest a heart failure exacerbation. Blood pressure 168/91. Patient not significantly dyspneic at the bedside. EKG shows diffuse ST depressions that appear to be no compared to old EKG from December 11. She does have similar appearing ST elevations in the anterior precordial leads. Repeat EKG showed no dynamic changes. Patient was supplemental nitroglycerin started on low-dose nitroglycerin drip. Chart review was performed My EKG interpretation: Ventricular rate 80, sinus rhythm,. Interval 141, QRS 96, QTC 438. No ST depressions in the cornea leads V3 to V6 concerning for ischemic changes. No obvious ST elevation.. No WI prolongation, no QTC prolongation/ EKG compared to 12/11/2021 showing no changes. Overall, this EKG so just ischemia Total 12:38 PM patient evaluated at the bedside states that she does not have any chest pressure or chest symptoms anymore. She was reports that her shortness of breath is improved. Laboratory evaluation obtained. CBC unremarkable. Coag panel is negative. Metabolic panel shows mild lactic acidosis 2.7. Patient's troponin is elevated 0.093. This appears to be below her baseline. Troponin levels from the recent past. Chest x-ray suggests congestive heart failure. Patient will be given admitted to cardiac stepdown unit with consultation to cardiology. Heart failure order set ordered. Critical Care: yes Critical Care time: 33 minutes - Related Data Home Medications Medication Instructions Recorded Confirmed Clopidogrel [Plavix] 75 mg PO DAILY 06/22/21 01/13/22 Nitroglycerin Sl Tabs [Nitrostat] 0.4 mg SUBLINGUAL Q5M PRN 06/22/21 01/13/22 Atorvastatin [Lipitor] 80 mg PO HS 11/22/21 01/13/22 Healty Eyes 1 tab PO DAILY 11/22/21 01/13/22 Albuterol Inhaler [Ventolin Hfa 1 - 2 puff INHALATION RT-Q6H PRN 01/13/22 01/13/22 Inhaler] Doxycycline Hyclate 100 mg PO BID 01/13/22 01/13/22 Glimepiride [Amaryl] 2 mg PO AC-BRKFST 01/13/22 01/13/22 Previous Rx's Medication Instructions Recorded Aspirin 81 mg PO DAILY 30 Days #30 05/11/21 Apixaban [Eliquis] 5 mg PO BID #180 tab 12/12/21 Acetaminophen Tab [Tylenol] 650 mg PO Q6HR PRN tab 12/13/21 Empagliflozin [Jardiance] 25 mg PO DAILY #30 tablet 12/13/21 Furosemide [Lasix] 40 mg PO DAILY #30 tab 12/13/21 Metoprolol Tartrate [Lopressor] 50 mg PO BID #60 tab 12/13/21 amLODIPine [Norvasc] 5 mg PO DAILY #30 tab 12/13/21 Allergies Allergy/AdvReac Type Severity Reaction Status Date / Time enalaprilat [From Vasotec] Allergy Anaphylaxis Verified 01/13/22 13:09 Review of Systems ROS Statement: Those systems with pertinent positive or pertinent negative responses have been documented in the HPI. ROS Other: All systems not noted in ROS Statement are negative. Past Medical History Past Medical History: Coronary Artery Disease (CAD), Diabetes Mellitus, Eye Disorder, Hyperlipidemia, Hypertension, Myocardial Infarction ([place]) Additional Past Medical History / Comment(s): HEART MURMUR. mass right kidney, hx migraines, macular degeneration,currently on antibiotic for UTI Last Myocardial Infarction Date:: April 2021 History of Any Multi-Drug Resistant Organisms: None Reported Past Surgical History: Appendectomy, Back Surgery, Breast Surgery, Cholecystect ysabel, Heart Catheterization With Stent, Hysterectomy, Orthopedic Surgery Additional Past Surgical History / Comment(s): "NECK LAMINECTOMY". LEFT BREAST BIOPSY, 2 cardiac stents, left shoulder rotator cuff, rt cataract Past Anesthesia/Blood Transfusion Reactions: No Reported Reaction Date of Last Stent Placement:: April 2021 Past Psychological History: Anxiety Smoking Status: Never smoker Past Alcohol Use History: None Reported Past Drug Use History: None Reported - Past Family History Mother Additional Family Medical History / Comment(s): "HEART PROBLEMS". BRAIN ANEURYSM. Father Family Medical History: Myocardial Infarction ([place]) General Exam Limitations: no limitations Course Vital Signs 01/13/22 01/13/22 01/13/22 11:06 11:20 12:00 Temperature 97.2 F L Pulse Rate 89 74 Respiratory 22 18 Rate Blood Pressure 168/91 157/97 O2 Sat by Pulse 88 L 98 Oximetry Fraction of 80 Inspired Oxygen (FIO2) Medical Decision Making - Lab Data Result diagrams: 01/13/22 11:22 01/13/22 11:22 Lab Results 01/13/22 01/13/2201/13/22 Range/Units 11:22 11:22 11:22 WBC 12.2 H (3.8-10.6) k/uL RBC 4.80 (3.80-5.40) m/uL Hgb 14.2 (11.4-16.0) gm/dL Hct 43.3 (34.0-46.0) % MCV 90.0 (80.0-100.0) fL MCH 29.6 (25.0-35.0) pg MCHC 32.9 (31.0-37.0) g/dL RDW 15.7 H (11.5-15.5) % Plt Count 152 D (150-450) k/uL MPV 8.4 Neutrophils % 86 % Lymphocytes % 7 % Monocytes % 4 % Eosinophils % 1 % Basophils % 1 % Neutrophils # 10.6 H (1.3-7.7) k/uL Lymphocytes # 0.9 L (1.0-4.8) k/uL Monocytes # 0.4 (0-1.0) k/uL Eosinophils # 0.2 (0-0.7) k/uL Basophils # 0.1 (0-0.2) k/uL Manual Slide Review Performed Hypochromasia Slight Poikilocytosis Slight PT 10.9 (9.0-12.0) sec INR 1.0 (<1.2) APTT 24.8 (22.0-30.0) sec Sodium 138 (137-145) mmol/L Potassium 3.8 (3.5-5.1) mmol/L Chloride 103 (98-107) mmol/L Carbon Dioxide 23 (22-30) mmol/L Anion Gap 12 mmol/L BUN 32 H (7-17) mg/dL Creatinine 1.20 H (0.52-1.04) mg/dL Est GFR (CKD-EPI)AfAm 51 (>60 ml/min/1.73 sqM) Est GFR (CKD-EPI)NonAf 44 (>60 ml/min/1.73 sqM) Glucose 318 H (74-99) mg/dL Plasma Lactic Acid Missael (0.7-2.0) mmol/L Calcium 9.3 (8.4-10.2) mg/dL Magnesium 1.8 (1.6-2.3) mg/dL Total Bilirubin 0.8 (0.2-1.3) mg/dL AST 44 H (14-36) U/L ALT 53 H (4-34) U/L Alkaline Phosphatase 130 H (38-126) U/L Troponin I (0.000-0.034) ng/mL Total Protein 6.9 (6.3-8.2) g/dL Albumin 4.3 (3.5-5.0) g/dL 01/13/22 01/13/22 Range/Units 11: 11:22 WBC (3.8-10.6) k/uL RBC (3.80-5.40) m/uL Hgb (11.4-16.0) gm/dL Hct (34.0-46.0) % MCV (80.0-100.0) fL MCH (25.0-35.0) pg MCHC (31.0-37.0) g/dL RDW (11.5-15.5) % Plt Count (150-450) k/uL MPV Neutrophils % % Lymphocytes % % Monocytes % % Eosinophils % % Basophils % % Neutrophils # (1.3-7.7) k/uL Lymphocytes # (1.0-4.8) k/uL Monocytes # (0-1.0) k/uL Eosinophils # (0-0.7) k/uL Basophils # (0-0.2) k/uL Manual Slide Review Hypochromasia Poikilocytosis PT (9.0-12.0) sec INR (<1.2) APTT (22.0-30.0) sec Sodium (137-145) mmol/L Potassium (3.5-5.1) mmol/L Chloride (98-107) mmol/L Carbon Dioxide (22-30) mmol/L Anion Gap mmol/L BUN (7-17) mg/dL Creatinine (0.52-1.04) mg/dL Est GFR (CKD-EPI)AfAm (>60 ml/min/1.73 sqM) Est GFR (CKD-EPI)NonAf (>60 ml/min/1.73 sqM) Glucose (74-99) mg/dL Plasma Lactic Acid Missael 2.7 H* (0.7-2.0) mmol/L Calcium (8.4-10.2) mg/dL Magnesium (1.6-2.3) mg/dL Total Bilirubin (0.2-1.3) mg/dL AST (14-36) U/L ALT (4-34) U/L Alkaline Phosphatase (38-126) U/L Troponin I 0.093 H* (0.000-0.034) ng/mL Total Protein (6.3-8.2) g/dL Albumin (3.5-5.0) g/dL Disposition Clinical Impression: CHF exacerbation Disposition: ADMITTED IP TO THIS HOSP Condition: Serious Referrals: Haritha Villatoro MD [Primary Care Provider] - 1-2 days Decision Time: 14:04
[2022-01-13 11:46] LABS: Basophils # (A) 0.1 k/uL (0-0.2); Basophils % (A) 1 %; Eosinophils # (A) 0.2 k/uL (0-0.7); Eosinophils % (A) 1 %; HCT 43.3 % (34.0-46.0); HGB 14.2 gm/dL (11.4-16.0); Hypochromasia Slight; Lymphocytes # (A) 0.9 k/uL (1.0-4.8); Lymphocytes % (A) 7 %; MCH 29.6 pg (25.0-35.0); MCHC 32.9 g/dL (31.0-37.0); Mean Platelet Volume 8.4; Monocytes # (A) 0.4 k/uL (0-1.0); Monocytes % (A) 4 %; Neutrophils # (A) 10.6 k/uL (1.3-7.7); Neutrophils % (A) 86 %; Poikilocytosis Slight; RDW 15.7 % (11.5-15.5); WBC 12.2 k/uL (3.8-10.6)
--- NOTE | 2022-01-13 11:57 | XR ---
EXAMINATION TYPE: XR chest 1V portable DATE OF EXAM: 01/13/2022 11:46 AM COMPARISON: Chest radiographs from 12/10/2021 TECHNIQUE: XR chest 1V portable Portable AP radiograph of the chest. CLINICAL INDICATION:Female, 77 years old with history of heart failure; FINDINGS: Lungs/Pleura: Airspace opacities throughout the right lung and left lung base. There is no evidence o f pleural effusion, focal consolidation, or pneumothorax. Pulmonary vascularity: Pulmonary vascular congestion. Heart/mediastinum: Cardiomediastinal silhouette is enlarged and stable. Musculoskeletal: No acute osseous pathology. IMPRESSION: Airspace opacities throughout the right lung and left lung base with cardiomegaly and mild pulmonary vascular congestion. Correlate with BNP for congestive heart failure.
[2022-01-13 11:59] LABS: Partial Thromboplastin Time 24.8 sec (22.0-30.0); Prothrombin Time 10.9 sec (9.0-12.0)
[2022-01-13 12:09] LABS: Albumin 4.3 g/dL (3.5-5.0); Calcium 9.3 mg/dL (8.4-10.2); Magnesium 1.8 mg/dL (1.6-2.3); Potassium 3.8 mmol/L (3.5-5.1); Total Bilirubin 0.8 mg/dL (0.2-1.3); Total Protein 6.9 g/dL (6.3-8.2)
[2022-01-13] MEDS ORDERED: FUROSEMIDE 10 MG/ML 4 ML VIAL IV STA (12:31)
[2022-01-13] MEDS ORDERED: ASPIRIN 81 MG PO STA (12:35)
[2022-01-13 12:47] LABS: Platelet Count 152 k/uL (150-450)
[2022-01-13] MEDS ORDERED: NITROGLYCERIN-D5W PMX 50 MG in DEXTROSE/WATER 1 250ML.BAG IV ONE (12:48)
--- NOTE | 2022-01-13 15:40 | P.HPIM ---
History of Present Illness This is a pleasant 77 years old female with past medical history of hypertension, hyperlipidemia, diabetes mellitus, coronary artery disease on dual and platelet therapy and chronic atrial fibrillation on Eliquis at home. Patient also recently had undergone right tumor removal from the right kidney for renal cancer (she follows up with Dr. Del Cid and Dr. Hernadez) Patient presents because of dyspnea and dry coughing for about one day duration with no chest pain but she has some chest heaviness on admission that since resolved with nitroglycerin drip. She denies any headache or dizziness or GI or urinary symptoms. She is not on home oxygen, she denies smoking alcohol or illicit drug Vitas looks stable, blood pressure slightly elevated. Patient is slightly tachypneic. patient has mild leukocytosis of 12.2, rest of CBC, BMP is unremarkable. Creatinine at baseline of 1.2. Which is at baseline Because elevated 318 AST 44 and ALT 53, which are mildly elevated Troponin is elevated 0.09. EKG showing sinus rhythm at [address]-T changes Chest x-ray: Correlate for CHF echocardiogram from 11/30/2021 showing ejection fraction 45% with moderate aortic stenosis Patient received IV Lasix and extra dose of aspirin and nitroglycerin and drip with volunteer coordinator consulted Review of Systems Review of systems CONSTITUTIONAL: No fever, no malaise, no fatigue. HEENT: No recent visual problems or hearing problems. Denied any sore throat. CARDIOVASCULAR: No orthopnea, PND, no palpitations, no syncope. PULMONARY: No chest wall tenderness, no hemoptysis. GASTROINTESTINAL: No diarrhea, no nausea, no vomiting, no abdominal pain. Normoactive bowel sounds. NEUROLOGICAL: No headaches, no weakness, no numbness. HEMATOLOGICAL: Denies any bleeding or petechiae. GENITOURINARY: Denies any burning micturition, frequency, or urgency. MUSCULOSKELETAL/RHEUMATOLOGICAL: Denies any joint pain, swelling, or any muscle pain. ENDOCRINE: Denies any polyuria or polydipsia. Past Medical History Past Medical History: Coronary Artery Disease (CAD), Diabetes Mellitus, Eye Disorder, Hyperlipidemia, Hypertension, Myocardial Infarction ([place]) Additional Past Medical History / Comment(s): HEART MURMUR. mass right kidney, hx migraines, macular degeneration,currently on antibiotic for UTI Last Myocardial Infarction Date:: April 2021 History of Any Multi-Drug Resistant Organisms: None Reported Past Surgical History: Appendectomy, Back Surgery, Breast Surgery, Cholecystectomy, Heart Catheterization With Stent, Hysterectomy, Orthopedic Surgery Additional Past Surgical History / Comment(s): "NECK LAMINECTOMY". LEFT BREAST BIOPSY, 2 cardiac stents, left shoulder rotator cuff, rt cataract Past Anesthesia/Blood Transfusion Reactions: No Reported Reaction Date of Last Stent Placement:: April 2021 Past Psychological History: Anxiety Smoking Status: Never smoker Past Alcohol Use History: None Reported Past Drug Use History: None Reported - Past Family History Mother Additional Family Medical History / Comment(s): "HEART PROBLEMS". BRAIN ANEURYSM. Father Family Medical History: Myocardial Infarction ([place]) Medications and Allergies Home Medications Medication Instructions Recorded Confirmed Type Aspirin 81 mg PO DAILY 30 Days #30 05/11/21 01/13/22 Rx Clopidogrel [Plavix] 75 mg PO DAILY 06/22/21 01/13/22 History Nitroglycerin Sl Tabs [Nitrostat] 0.4 mg SUBLINGUAL Q5M PRN 06/22/21 01/13/22 History Atorvastatin [Lipitor] 80 mg PO HS 11/22/21 01/13/22 History Healty Eyes 1 tab PO DAILY 11/22/21 01/13/22 History Apixaban [Eliquis] 5 mg PO BID #180 tab 12/12/21 01/13/22 Rx Acetaminophen Tab [Tylenol] 650 mg PO Q6HR PRN tab 12/13/21 01/13/22 Rx Empagliflozin [Jardiance] 25 mg PO DAILY #30 tablet 12/13/21 01/13/22 Rx Furosemide [Lasix] 40 mg PO DAILY #30 tab 12/13/21 01/13/22 Rx Metoprolol Tartrate [Lopressor] 50 mg PO BID #60 tab 12/13/21 01/13/22 Rx amLODIPine [Norvasc] 5 mg PO DAILY #30 tab 12/13/21 01/13/22 Rx Albuterol Inhaler [Ventolin Hfa 1 - 2 puff INHALATION RT-Q6H PRN 01/13/22 01/13/22 History Inhaler] Doxycycline Hyclate 100 mg PO BID 01/13/22 01/13/22 History Glimepiride [Amaryl] 2 mg PO AC-BRKFST 01/13/22 01/13/22 History Allergies Allergy/AdvReac Type Severity Reaction Status Date / Time enalaprilat [From Vasotec] Allergy Anaphylaxis Verified 01/13/22 13:09 Physical Exam Vitals: Vital Signs Temp Pulse Resp BP Pulse Ox FiO2 01/13/22 12:00 74 18 157/97 98 01/13/22 11:20 80 01/13/22 11:06 97.2 F L 89 22 168/91 88 L Intake and Output 01/12/22 01/13/22 01/13/22 22:59 06:59 14:59 Other: Weight 68.039 kg GENERAL: The patient is alert and oriented x3, not in any acute distress. Well developed, well nourished. HEENT: Pupils are round and equally reacting to light. EOMI. No scleral icterus. No conjunctival pallor. Normocephalic, atraumatic. No pharyngeal erythema. No thyromegaly. CARDIOVASCULAR: S1 and S2 present. No murmurs, rubs, or gallops. --PULMONARY: Chest is clear to auscultation, no wheezing. Bilateral basal crackles. On BiPAP machine ABDOMEN: Soft, nontender, nondistended, normoactive bowel sounds. No palpable organomegaly. MUSCULOSKELETAL: No joint swelling or deformity. EXTREMITIES: No cyanosis, clubbing, or pedal edema. NEUROLOGICAL: Gross neurological examination did not reveal any focal deficits. SKIN: No rashes. no petechiae. Results CBC & Chem 7: 01/13/22 11:01/13/22 11: Labs: Abnormal Lab Results - Last 24 Hours (Table) 01/13/22 01/13/22 01/13/22 Range/Units 11: 11: 11: WBC 12.2 H (3.8-10.6) k/uL RDW 15.7 H (11.5-15.5) % Neutrophils # 10.6 H (1.3-7.7) k/uL Lymphocytes # 0.9 L (1.0-4.8) k/uL BUN 32 H (7-17) mg/dL Creatinine 1.20 H (0.52-1.04) mg/dL Glucose 318 H (74-99) mg/dL Plasma Lactic Acid Missael 2.7 H* (0.7-2.0) mmol/L AST 44 H (14-36) U/L ALT 53 H (4-34) U/L Alkaline Phosphatase 130 H (38-126) U/L Troponin I (0.000-0.034) ng/mL 01/13/22 Range/Units 11:22 WBC (3.8-10.6) k/uL RDW (11.5-15.5) % Neutrophils # (1.3-7.7) k/uL Lymphocytes # (1.0-4.8) k/uL BUN (7-17) mg/dL Creatinine (0.52-1.04) mg/dL Glucose (74-99) mg/dL Plasma Lactic Acid Missael (0.7-2.0) mmol/L AST (14-36) U/L ALT (4-34) U/L Alkaline Phosphatase (38-126) U/L Troponin I 0.093 H* (0.000-0.034) ng/mL Assessment and Plan Assessment: Acute and chronic systolic CHF with ejection fraction 45% Moderate aortic stenosis Hypertension Hyperlipidemia Type 2 diabetes mellitus Paroxysmal atrial fibrillation History of coronary artery disease status post PCI History of renal cancer status post recent right tumor removal from the right kidney,, nephrectomy Elevated troponin Chronically Mildly elevated liver enzymes Plan: This is a pleasant 27 years old female who presents with significant exacerbation Continue with IV Lasix and a fluid restriction Monitor input and output and creatinine Cardiology consult Labs and medication were reviewed.. Continue same treatment. Continue with symptomatic treatment. Resume home medication. Monitor labs and vitals. DVT and GI prophylaxis. Further recommendations as per clinical course of the patient DVT prophylaxis: Subcutaneous heparin GI Prophylaxis: Pepcid PT/OT: Pending Prognosis is guarded
[2022-01-13 18:18] LABS: Appearance,Urine Clear (Clear); Bilirubin,Urine Negative (Negative); Blood,Urine Negative (Negative); Color,Urine Colorless; Glucose,Urine (UA) 4+ (Negative); Ketones,Urine Negative (Negative); Leukocyte Esterase,Urine Negative (Negative); Nitrite,Urine Negative (Negative); Protein,Urine Negative (Negative); Specific Gravity,Urine 1.008 (1.001-1.035); Urobilinogen,Urine <2.0 mg/dL (<2.0)
[2022-01-13] MEDS: FUROSEMIDE 10 MG/ML 4 ML VIAL IV SCH (20:25)
[2022-01-13] MEDS ORDERED: ALBUTEROL NEBULIZED 2.5 MG/3 ML INHALATION PRN (22:40)
[2022-01-14] MEDS: FUROSEMIDE 10 MG/ML 4 ML VIAL IV SCH ×3 (03:02→20:09)
[2022-01-14 05:55] LABS: Glucose,Whole Blood 122 mg/dL (70-110)
[2022-01-14] MEDS: CLOPIDOGREL 75 MG TAB PO SCH (08:32)
[2022-01-14] MEDS: METOPROLOL TARTRATE 50 MG TAB PO SCH ×2 (08:32→20:09)
[2022-01-14] MEDS: amLODIPine 5 MG TAB PO SCH (08:32)
[2022-01-14 08:39] LABS: Basophils # (A) 0.1 k/uL (0-0.2); Basophils % (A) 1 %; Eosinophils # (A) 0.2 k/uL (0-0.7); Eosinophils % (A) 2 %; HCT 38.4 % (34.0-46.0); HGB 12.7 gm/dL (11.4-16.0); Hypochromasia Slight; Lymphocytes # (A) 0.9 k/uL (1.0-4.8); Lymphocytes % (A) 10 %; MCH 29.9 pg (25.0-35.0); MCHC 33.2 g/dL (31.0-37.0); Mean Platelet Volume 8.4; Monocytes # (A) 0.4 k/uL (0-1.0); Monocytes % (A) 5 %; Neutrophils # (A) 7.2 k/uL (1.3-7.7); Neutrophils % (A) 82 %; Platelet Count 153 k/uL (150-450); Poikilocytosis Slight; RBC 4.26 m/uL (3.80-5.40); RDW 15.6 % (11.5-15.5); WBC 8.9 k/uL (3.8-10.6)
[2022-01-14 08:52] LABS: Albumin 4.2 g/dL (3.5-5.0); Bilirubin, Delta 0.3 mg/dL (0.0-0.2); Bilirubin,Unconjugated 0.7 mg/dL (0.0-1.1); Calcium 9.2 mg/dL (8.4-10.2); Magnesium 1.8 mg/dL (1.6-2.3); Potassium 3.2 mmol/L (3.5-5.1); Total Protein 6.5 g/dL (6.3-8.2)
[2022-01-14] MEDS ORDERED: HEPARIN SODIUM,PORCINE/PF 5,000 UNIT/0.5 ML SYRINGE SQ SCH (09:00)
[2022-01-14] MEDS ORDERED: APIXABAN 5 MG TAB PO SCH (09:00)
[2022-01-14] MEDS ORDERED: FAMOTIDINE 20 MG/2 ML VIAL IV SCH (09:00)
[2022-01-14] MEDS ORDERED: ASPIRIN 81 MG PO SCH (09:00)
[2022-01-14] MEDS: GLIMEPIRIDE 2 MG TAB PO SCH (09:47)
--- NOTE | 2022-01-14 10:28 | P.PN ---
Subjective This is a pleasant 77 years old female with past medical history of hypertension, hyperlipidemia, diabetes mellitus, coronary artery disease on dual and platelet therapy and chronic atrial fibrillation on Eliquis at home. Patient also recently had undergone right tumor removal from the right kidney for renal cancer (she follows up with Dr. Del Cid and Dr. Hernadez) Patient presents because of dyspnea and dry coughing for about one day duration with no chest pain but she has some chest heaviness on admission that since resolved with nitroglycerin drip. She denies any headache or dizziness or GI or urinary symptoms. She is not on home oxygen, she denies smoking alcohol or illicit drug Vitas looks stable, blood pressure slightly elevated. Patient is slightly tachypneic. patient has mild leukocytosis of 12.2, rest of CBC, BMP is unremarkable. Creatinine at baseline of 1.2. Which is at baseline Because elevated 318 AST 44 and ALT 53, which are mildly elevated Troponin is elevated 0.09. EKG showing sinus rhythm at [address]-T changes Chest x-ray: Correlate for CHF echocardiogram from 11/30/2021 showing ejection fraction 45% with moderate aortic stenosis Patient received IV Lasix and extra dose of aspirin and nitroglycerin and drip with rivet machine operator consulted 01/14/2022 Patient states that she feels better, she is now back to baseline. She is not coughing much. stable including creatinine 1.1, liver enzymes are the same. Vitals are stable. patient on 2 L of oxygen via nasal cannula, she was not on home oxygenejection fraction 45% also patient has chronic A. fib and mildly elevated liver enzymes Continue with IV Lasix for tumor, twice daily and Eliquis home dose of 5 mg as well as aspirin and Plavix To resume Amaryl, shortness is not available in this hospital continue with insulin sliding scale Objective - Vital Signs Vital signs: Vital Signs Temp 98.6 F 01/14/22 08:30 Pulse 60 01/14/22 08:30 Resp 18 01/14/22 08:30 BP 132/62 01/14/22 08:30 Pulse Ox 95 01/14/22 08:30 FiO2 40 01/14/22 05:35 Intake & Output 01/13/22 01/14/22 01/14/22 18:59 06:59 18:59 Intake Total 960 240 Balance 960 240 Weight 68.039 kg 67.5 kg Intake: Oral 960 240 Other: Voiding Method Bedside Commode # Voids 3 - Exam -GENERAL: The patient is alert and oriented x3, not in any acute distress.obese HEENT: Pupils are round and equally reacting to light. EOMI. No scleral icterus. No conjunctival pallor. Normocephalic, atraumatic. No pharyngeal erythema. No thyromegaly. -CARDIOVASCULAR: S1 and S2 present. No murmurs, rubs, . gallops. PULMONARY: Chest is clear to auscultation, no wheezing or crackles. ABDOMEN: Soft, nontender, nondistended, normoactive bowel sounds. No palpable organomegaly. MUSCULOSKELETAL: No joint swelling or deformity. EXTREMITIES: No cyanosis, clubbing, or pedal edema. NEUROLOGICAL: Gross neurological examination did not reveal any focal deficits. SKIN: No rashes. no petechiae.bilateral basal - Labs CBC & Chem 7: 01/14/22 07:46 01/14/22 07:46 Labs: Abnormal Lab Results - Last 24 Hours (Table) 01/13/22 01/13/22 01/13/22 Range/Units 11: 11: 11: WBC 12.2 H (3.8-10.6) k/uL RDW 15.7 H (11.5-15.5) % Neutrophils # 10.6 H (1.3-7.7) k/uL Lymphocytes # 0.9 L (1.0-4.8) k/uL Potassium (3.5-5.1) mmol/L BUN 32 H (7-17) mg/dL Creatinine 1.20 H (0.52-1.04) mg/dL Glucose 318 H (74-99) mg/dL POC Glucose (mg/dL) (70-110) mg/dL Plasma Lactic Acid Missael 2.7 H* (0.7-2.0) mmol/L Delta Bilirubin (0.0-0.2) mg/dL AST 44 H (14-36) U/L ALT 53 H (4-34) U/L Alkaline Phosphatase 130 H (38-126) U/L Troponin I (0.000-0.034) ng/mL Urine Glucose (UA) (Negative) 01/13/22 01/13/22 01/14/22 Range/Units 11:22 18:15 05:53 WBC (3.8-10.6) k/uL RDW (11.5-15.5) % Neutrophils # (1.3-7.7) k/uL Lymphocytes # (1.0-4.8) k/uL Potassium (3.5-5.1) mmol/L BUN (7-17) mg/dL Creatinine (0.52-1.04) mg/dL Glucose (74-99) mg/dL POC Glucose (mg/dL) 122 H (70-110) mg/dL Plasma Lactic Acid Missael (0.7-2.0) mmol/L Delta Bilirubin (0.0-0.2) mg/dL AST (14-36) U/L ALT (4-34) U/L Alkaline Phosphatase (38-126) U/L Troponin I 0.093 H* (0.000-0.034) ng/mL Urine Glucose (UA) 4+ H (Negative) 01/14/22 01/14/22 Range/Units 07:46 07:46 WBC (3.8-10.6) k/uL RDW 15.6 H (11.5-15.5) % Neutrophils # (1.3-7.7) k/uL Lymphocytes # 0.9 L (1.0-4.8) k/uL Potassium 3.2 L (3.5-5.1) mmol/L BUN 33 H (7-17) mg/dL Creatinine 1.13 H (0.52-1.04) mg/dL Glucose 226 H (74-99) mg/dL POC Glucose (mg/dL) (70-110) mg/dL Plasma Lactic Acid Missael (0.7-2.0) mmol/L Delta Bilirubin 0.3 H (0.0-0.2) mg/dL AST 55 H (14-36) U/L ALT 41 H (4-34) U/L Alkaline Phosphatase (38-126) U/L Troponin I (0.000-0.034) ng/mL Urine Glucose (UA) (Negative) Assessment and Plan Assessment: Acute and chronic systolic CHF with ejection fraction 45% Moderate aortic stenosis Hypertension Hyperlipidemia Type 2 diabetes mellitus Paroxysmal atrial fibrillation History of coronary artery disease status post PCI History of renal cancer status post recent right tumor removal from the right kidney,, nephrectomy Elevated troponin Chronically Mildly elevated liver enzymes Plan: This is a pleasant 27 years old female who presents with significant exacerbation Continue with IV Lasix and a fluid restriction Monitor input and output and creatinine Cardiology consult Labs and medication were reviewed.. Continue same treatment. Continue with symptomatic treatment. Resume home medication. Monitor labs and vitals. DVT and GI prophylaxis. Further recommendations as per clinical course of the patient DVT prophylaxis: Subcutaneous heparin GI Prophylaxis: Pepcid PT/OT: Pending Prognosis is guarded
[2022-01-14 12:01] LABS: Glucose,Whole Blood 192 mg/dL (70-110)
[2022-01-14] MEDS: INSULIN ASPART (NovoLOG) 100 UNIT/ML VIAL SQ SCH ×3 (13:13→20:12)
--- NOTE | 2022-01-14 13:55 | P.CRDCN ---
History of Present Illness History of present illness: HISTORY OF PRESENTING ILLNESS Patient is pleasant 77-year-old female with history of hypertension, hyperlipidemia, diabetes mellitus type 2, CAD with previous stenting, congestive heart failure, paroxysmal atrial fibrillation. She normally follows with Dr. Nieto. She has had previous admission 11/29/2021 with non-STEMI with troponins up to 41. Echo 11/30/2021 showed EF 45% with moderate to severely increased left ventricular wall thickness as well as moderate aortic stenosis. During previous admissions she was having more chest pain however denies any since that time. She presents with 2 days of worsened shortness of breath. She denies any lower extremity edema. She does believe she may have missed a dose or 2 of her Lasix. Blood pressure mildly elevated in the 160s over 90s on presentation. She did receive IV Lasix and currently states she is feeling much better. First troponin mildly elevated at 0.09 however had been elevated in the past. White blood cell count 12.2, hemoglobin 14.2, BUN 32, creatinine 1.2, AST 44, proBNP 2080. REVIEW OF SYSTEMS At the time of my exam: CONSTITUTIONAL: Denies fever or chills. CARDIOVASCULAR: Denies chest pain, +shortness of breath, no orthopnea, PND or palpitations. RESPIRATORY: Denies cough. GASTROINTESTINAL: Denies abdominal pain, diarrhea, constipation, nausea or vomiting. MUSCULOSKELETAL: Denies myalgias. NEUROLOGIC: Denies numbness, tingling or weakness. ENDOCRINE: Denies fatigue, weight change, polydipsia or polyurina. GENITOURINARY: Denies burning, hematuria or urgency with micturation. HEMATOLOGIC: Denies history of anemia or bleeding. PHYSICAL EXAMINATION Vital signs reviewed. CONSTITUTIONAL: No apparent distress. HEENT: Head is normocephalic. Pupils are equal, round. Sclerae anicteric. Mucous membranes of the mouth are moist. No JVD. No carotid bruit. CHEST EXAMINATION: Lungs are clear to auscultation. No chest wall tenderness is noted on palpation or with deep breathing. HEART EXAMINATION: Regular rate and rhythm. S1, S2 heard. No murmurs, gallops or rub. ABDOMEN: Soft, nontender. Positive bowel sounds. EXTREMITIES: 2+ peripheral pulses, no lower extremity edema and no calf tenderness. NEUROLOGIC EXAMINATION: Patient is awake, alert and oriented x3. ASSESSMENT 1. Acute on chronic diastolic heart failure EF 45% 2. Mildly elevated troponins without any significant angina, has been elevated in the past 3. CAD with previous history of PCI 4. Paroxysmal atrial fibrillation currently sinus rhythm 5. Hypertension 6. Diabetes mellitus type 2 PLAN Continue with Eliquis and Plavix however stop aspirin given high-risk of bleeding. Continue with Lasix. Continue with metoprolol. Possibly change amlodipine to lisinopril or losartan given mildly decreased EF 45% however has been tolerating and we will continue the current dose. Likely one more day of IV diuretics and possible discharge home 24-48 hours pending patient's progress. Past Medical History Past Medical History: Coronary Artery Disease (CAD), Diabetes Mellitus, Eye Disorder, Hyperlipidemia, Hypertension, Myocardial Infarction ([place]) Additional Past Medical History / Comment(s): HEART MURMUR. mass right kidney, hx migraines, macular degeneration,currently on antibiotic for UTI Last Myocardial Infarction Date:: April 2021 History of Any Multi-Drug Resistant Organisms: None Reported Past Surgical History: Appendectomy, Back Surgery, Breast Surgery, Cholecystectomy, Heart Catheterization With Stent, Hysterectomy, Orthopedic Surgery Additional Past Surgical History / Comment(s): "NECK LAMINECTOMY". LEFT BREAST BIOPSY, 2 cardiac stents, left shoulder rotator cuff, rt cataract Past Anesthesia/Blood Transfusion Reactions: No Reported Reaction Date of Last Stent Placement:: April 2021 Past Psychological History: Anxiety Smoking Status: Never smoker Past Alcohol Use History: None Reported Past Drug Use History: None Reported - Past Family History Mother Additional Family Medical History / Comment(s): "HEART PROBLEMS". BRAIN ANEURYS M. Father Family Medical History: Myocardial Infarction ([place]) Medications and Allergies Home Medications Medication Instructions Recorded Confirmed Type Aspirin 81 mg PO DAILY 30 Days #30 05/11/21 01/13/22 Rx Clopidogrel [Plavix] 75 mg PO DAILY 06/22/21 01/13/22 History Nitroglycerin Sl Tabs [Nitrostat] 0.4 mg SUBLINGUAL Q5M PRN 06/22/21 01/13/22 History Atorvastatin [Lipitor] 80 mg PO HS 11/22/21 01/13/22 History Healty Eyes 1 tab PO DAILY 11/22/21 01/13/22 History Apixaban [Eliquis] 5 mg PO BID #180 tab 12/12/21 01/13/22 Rx Acetaminophen Tab [Tylenol] 650 mg PO Q6HR PRN tab 12/13/21 01/13/22 Rx Empagliflozin [Jardiance] 25 mg PO DAILY #30 tablet 12/13/21 01/13/22 Rx Furosemide [Lasix] 40 mg PO DAILY #30 tab 12/13/21 01/13/22 Rx Metoprolol Tartrate [Lopressor] 50 mg PO BID #60 tab 12/13/21 01/13/22 Rx amLODIPine [Norvasc] 5 mg PO DAILY #30 tab 12/13/21 01/13/22 Rx Albuterol Inhaler [Ventolin Hfa 1 - 2 puff INHALATION RT-Q6H PRN 01/13/22 01/13/22 History Inhaler] Doxycycline Hyclate 100 mg PO BID 01/13/22 01/13/22 History Glimepiride [Amaryl] 2 mg PO AC-BRKFST 01/13/22 01/13/22 History Allergies Allergy/AdvReac Type Severity Reaction Status Date / Time enalaprilat [From Vasotec] Allergy Anaphylaxis Verified 01/13/22 13:09 Physical Exam Vitals: Vital Signs Temp Pulse Pulse Resp BP BP Pulse Ox 01/14/22 08:30 98.6 F 60 18 132/62 95 01/14/22 05:35 01/14/22 04:00 64 24 126/62 100 01/14/22 03:00 01/14/22 00:00 59 L 29 H 118/56 99 01/13/22 23:57 01/13/22 21:00 98.2 F 63 35 H 142/68 99 01/13/22 20:49 62 26 H 128/66 100 01/13/22 19:20 57 L 24 143/70 100 01/13/22 19:09 01/13/22 18:00 78 18 143/79 95 01/13/22 16:22 66 18 132/76 96 01/13/22 15:10 01/13/22 14:42 63 18 159/83 99 FiO2 01/14/22 08:30 01/14/22 05:35 40 01/14/22 04:00 70 01/14/22 03:00 50 01/14/22 00:00 70 01/13/22 23:57 60 11/25/22 21:00 70 01/13/22 20:49 01/13/22 19:20 01/13/22 19:09 80 01/13/22 18:00 01/13/22 16:22 01/13/22 15:10 80 01/13/22 14:42 Intake and Output 01/13/22 01/14/22 01/14/22 22:59 06:59 14:59 Intake Total 480 480 240 Balance 480 480 240 Intake: Oral 480 480 240 Other: Voiding Method Bedside Commode Bedside Commode # Voids 3 Weight 68.039 kg 67.5 kg Results 01/14/22 07:46 01/14/22 07:46 Cardiac Enzymes 01/14/22 Range/Units 07:46 AST 55 H (14-36) U/L CBC 01/14/22 Range/Units 07:46 WBC 8.9 (3.8-10.6) k/uL RBC 4.26 (3.80-5.40) m/uL Hgb 12.7 (11.4-16.0) gm/dL Hct 38.4 (34.0-46.0) % Plt Count 153 (150-450) k/uL Comprehensive Metabolic Panel 01/14/22 Range/Units 07:46 Sodium 141 (137-145) mmol/L Potassium 3.2 L (3.5-5.1) mmol/L Chloride 100 (98-107) mmol/L Carbon Dioxide 30 (22-30) mmol/L BUN 33 H (7-17) mg/dL Creatinine 1.13 H (0.52-1.04) mg/dL Glucose 226 H (74-99) mg/dL Calcium 9.2 (8.4-10.2) mg/dL Unconjugated Bilirubin 0.7 (0.0-1.1) mg/dL AST 55 H (14-36) U/L ALT 41 H (4-34) U/L Alkaline Phosphatase 104 (38-126) U/L Total Protein 6.5 (6.3-8.2) g/dL Albumin 4.2 (3.5-5.0) g/dL Current Medications Generic Name Dose Route Start Last Admin Trade Name Freq PRN Reason Stop Dose Admin Acetaminophen 650 mg 01/13/22 22:40 Acetaminophen Tab 325 Mg Tab PO Q6HR PRN Mild Pain or Fever > 100.5 Albuterol Sulfate 2.5 mg 01/13/22 22:40 Albuterol Nebulized 2.5 Mg/3 Ml INHALATION RT-Q6H PRN Shortness Of Breath Or Wheezing Amlodipine Besylate 5 mg 01/14/22 09:00 01/14/22 08:32 Amlodipine 5 Mg Tab PO 5 mg DAILY JANETTE Administration Apixaban 5 mg 01/14/22 09:00 01/14/22 08:32 Apixaban 5 Mg Tab PO 5 mg BID JANETTE Administration Protocol Aspirin 81 mg 01/14/22 09:00 01/14/22 08:31 Aspirin 81 Mg PO 81 mg DAILY JANETTE Administration Atorvastatin Calcium 80 mg 01/14/22 21:00 Atorvastatin 80 Mg Tab PO HS [facility] Clopidogrel Bisulfate 75 mg 01/14/22 09:00 01/14/22 08:32 Clopidogrel 75 Mg Tab PO 75 mg DAILY JANETTE Administration Famotidine 20 mg 01/14/22 09:00 01/14/22 08:31 Famotidine 20 Mg/2 Ml Vial IV 20 mg Q12HR JANETTE Administration Furosemide 40 mg 01/14/22 10:30 01/14/22 11:43 Furosemide 10 Mg/Ml 4 Ml Vial IV 40 mg Q12HR JANETTE Administration Glimepiride 2 mg 01/14/22 09:15 01/14/22 09:47 Glimepiride 2 Mg Tab PO 2 mg AC-BRKFST JANETTE Administration Insulin Aspart 0 unit 01/14/22 12:30 01/14/22 13:13 Insulin Aspart (Novolog) 100 Unit/Ml Vial SQ 1 unit ACHS JANETTE Administration Protocol Metoprolol Tartrate 50 mg 01/14/22 09:00 01/14/22 08:32 Metoprolol Tartrate 50 Mg Tab PO 50 mg BID JANETTE Administration Intake and Output 01/13/22 01/14/22 01/14/22 22:59 06:59 14:59 Intake Total 480 480 240 Balance 480 480 240 Intake: Oral 480 480 240 Other: Voiding Method Bedside Commode Bedside Commode # Voids 3 Weight 68.039 kg 67.5 kg 01/14/22 07:46 01/14/22 07:46
[2022-01-14] MEDS ORDERED: HEPARIN SODIUM 1,000 UN/ML (10ML VL) IV ONE (15:59)
[2022-01-14] MEDS ORDERED: HEPARIN SODIUM 1,000 UN/ML (10ML VL) IV PRN (15:59)
[2022-01-14 16:30] LABS: Basophils # (A) 0.1 k/uL (0-0.2); Basophils % (A) 1 %; Eosinophils # (A) 0.3 k/uL (0-0.7); Eosinophils % (A) 3 %; HCT 38.8 % (34.0-46.0); HGB 13.1 gm/dL (11.4-16.0); Hypochromasia Slight; Lymphocytes # (A) 1.1 k/uL (1.0-4.8); Lymphocytes % (A) 13 %; MCHC 33.7 g/dL (31.0-37.0); MCV 88.8 fL (80.0-100.0); Mean Platelet Volume 8.2; Monocytes # (A) 0.4 k/uL (0-1.0); Monocytes % (A) 5 %; Neutrophils # (A) 6.5 k/uL (1.3-7.7); Neutrophils % (A) 77 %; Platelet Count 168 k/uL (150-450); Poikilocytosis Slight; RBC 4.37 m/uL (3.80-5.40); RDW 15.4 % (11.5-15.5); WBC 8.4 k/uL (3.8-10.6)
[2022-01-14] MEDS: HEPARIN SOD,PORK IN 0.45% NACL 25,000 UNIT in 0.45% NACL 1 250ML.BAG IV SCH (16:31)
[2022-01-14 16:38] LABS: Partial Thromboplastin Time 27.3 sec (22.0-30.0); Prothrombin Time 11.1 sec (9.0-12.0)
[2022-01-14 17:02] LABS: Glucose,Whole Blood 152 mg/dL (70-110)
[2022-01-14 19:57] LABS: Glucose,Whole Blood 177 mg/dL (70-110)
[2022-01-14] MEDS: ATORVASTATIN 80 MG TAB PO SCH (20:08)
[2022-01-15 06:05] LABS: Glucose,Whole Blood 121 mg/dL (70-110)
[2022-01-15] MEDS: INSULIN ASPART (NovoLOG) 100 UNIT/ML VIAL SQ SCH ×4 (06:14→21:22)
[2022-01-15] MEDS: GLIMEPIRIDE 2 MG TAB PO SCH (06:33)
[2022-01-15 06:42] LABS: Basophils # (A) 0.1 k/uL (0-0.2); Basophils % (A) 1 %; Eosinophils # (A) 0.4 k/uL (0-0.7); Eosinophils % (A) 4 %; HCT 41.4 % (34.0-46.0); HGB 13.7 gm/dL (11.4-16.0); Hypochromasia Slight; Lymphocytes # (A) 1.5 k/uL (1.0-4.8); Lymphocytes % (A) 16 %; MCH 29.8 pg (25.0-35.0); MCHC 33.2 g/dL (31.0-37.0); MCV 89.8 fL (80.0-100.0); Mean Platelet Volume 8.6; Monocytes # (A) 0.5 k/uL (0-1.0); Monocytes % (A) 6 %; Neutrophils # (A) 6.9 k/uL (1.3-7.7); Neutrophils % (A) 73 %; Platelet Count 171 k/uL (150-450); Poikilocytosis Slight; RBC 4.62 m/uL (3.80-5.40); RDW 15.2 % (11.5-15.5); WBC 9.4 k/uL (3.8-10.6)
[2022-01-15 06:54] LABS: Albumin 4.5 g/dL (3.5-5.0); Calcium 9.7 mg/dL (8.4-10.2); Total Bilirubin 1.2 mg/dL (0.2-1.3); Total Protein 7.1 g/dL (6.3-8.2)
[2022-01-15 06:59] LABS: INR 1.1 (<1.2); Partial Thromboplastin Time 53.9 sec (22.0-30.0); Potassium 3.6 mmol/L (3.5-5.1); Prothrombin Time 11.4 sec (9.0-12.0)
[2022-01-15] MEDS: FUROSEMIDE 10 MG/ML 4 ML VIAL IV SCH ×2 (08:20→21:28)
[2022-01-15] MEDS: CLOPIDOGREL 75 MG TAB PO SCH (08:21)
[2022-01-15] MEDS: METOPROLOL TARTRATE 50 MG TAB PO SCH ×3 (08:21→21:36)
[2022-01-15] MEDS: amLODIPine 5 MG TAB PO SCH (08:21)
--- NOTE | 2022-01-15 08:51 | P.PN ---
Subjective This is a pleasant 77 years old female with past medical history of hypertension, hyperlipidemia, diabetes mellitus, coronary artery disease on dual and platelet therapy and chronic atrial fibrillation on Eliquis at home. Patient also recently had undergone right tumor removal from the right kidney for renal cancer (she follows up with Dr. Del Cid and Dr. Hernadez) Patient presents because of dyspnea and dry coughing for about one day duration with no chest pain but she has some chest heaviness on admission that since resolved with nitroglycerin drip. She denies any headache or dizziness or GI or urinary symptoms. She is not on home oxygen, she denies smoking alcohol or illicit drug Vitas looks stable, blood pressure slightly elevated. Patient is slightly tachypneic. patient has mild leukocytosis of 12.2, rest of CBC, BMP is unremarkable. Creatinine at baseline of 1.2. Which is at baseline Because elevated 318 AST 44 and ALT 53, which are mildly elevated Troponin is elevated 0.09. EKG showing sinus rhythm at [address]-T changes Chest x-ray: Correlate for CHF echocardiogram from 11/30/2021 showing ejection fraction 45% with moderate aortic stenosis Patient received IV Lasix and extra dose of aspirin and nitroglycerin and drip with rotary drill rig operator consulted 01/14/2022 Patient states that she feels better, she is now back to baseline. She is not coughing much. stable including creatinine 1.1, liver enzymes are the same. Vitals are stable. patient on 2 L of oxygen via nasal cannula, she was not on home oxygenejection fraction 45% also patient has chronic A. fib and mildly elevated liver enzymes Continue with IV Lasix for tumor, twice daily and Eliquis home dose of 5 mg as well as aspirin and Plavix To resume Amaryl, shortness is not available in this hospital continue with insulin sliding scale 01/15/2022 Patient awake and alert, no dyspnea while sitting in bed. No chest pain. No other complaint. She still complaining of from her bump in her dorsum of the left hand times one month slightly tender with no signs of cellulitis. Orthopedic team were consulted and pending. Dog Or Animal Sitter also on the case, her troponin was elevated last night and her Eliquis switched to heparin drip. Aspirin was discontinued by rotary drill rig operator while keeping Plavix to lower the risk of bleeding. She is also on IV Lasix which could be switched to oral does sewn Possible discharge in 24-48 hours Objective - Vital Signs Vital signs: Vital Signs Temp 98.1 F 01/15/22 08:20 Pulse 65 01/15/22 08:20 Resp 17 01/15/22 08:20 BP 140/65 01/15/22 08:20 Pulse Ox 94 L 01/15/22 08:20 FiO2 40 01/14/22 05:35 Intake & Output 01/14/22 01/15/22 01/15/22 18:59 06:59 18:59 Intake Total 720 1012.245 Balance 720 1012.245 Weight 67.5 kg 66.5 kg Intake: Intake, IV Titration 52.245 Amount Heparin Sod,Pork in 0.45% 52.245 NaCl 25,000 unit In 0.45 % NaCl 1 250ml.bag @ 12 UNITS/KG/HR 8.1 mls/hr IV .Q24H JANETTE Rx#:[id number] Oral 720 960 Other: Voiding Method Bedside Commode # Voids 2 3 - Exam -GENERAL: The patient is alert and oriented x3, not in any acute distress.obese HEENT: Pupils are round and equally reacting to light. EOMI. No scleral icterus. No conjunctival pallor. Normocephalic, atraumatic. No pharyngeal erythema. No thyromegaly. -CARDIOVASCULAR: S1 and S2 present. No murmurs, rubs, . gallops. PULMONARY: Chest is clear to auscultation, no wheezing or crackles. ABDOMEN: Soft, nontender, nondistended, normoactive bowel sounds. No palpable organomegaly. MUSCULOSKELETAL: No joint swelling or deformity. EXTREMITIES: No cyanosis, clubbing, or pedal edema. NEUROLOGICAL: Gross neurological examination did not reveal any focal deficits. SKIN: No rashes. no petechiae.bilateral basal - Labs CBC & Chem 7: 01/15/22 06:20 01/15/22 06:20 Labs: Abnormal Lab Results - Last 24 Hours (Table) 01/14/22 01/14/22 01/14/22 Range/Units 07:46 07:46 11:53 APTT (22.0-30.0) sec Potassium 3.2 L (3.5-5.1) mmol/L BUN 33 H (7-17) mg/dL Creatinine 1.13 H (0.52-1.04) mg/dL Glucose 226 H (74-99) mg/dL POC Glucose (mg/dL) 192 H (70-110) mg/dL Delta Bilirubin 0.3 H (0.0-0.2) mg/dL AST 55 H (14-36) U/L ALT 41 H (4-34) U/L Troponin I (0.000-0.034) ng/mL Procalcitonin 0.27 H (0.02-0.09) ng/mL 01/14/22 01/14/22 01/14/22 Range/Units 14:26 16:57 18:01 APTT (22.0-30.0) sec Potassium (3.5-5.1) mmol/L BUN (7-17) mg/dL Creatinine (0.52-1.04) mg/dL Glucose (74-99) mg/dL POC Glucose (mg/dL) 152 H (70-110) mg/dL Delta Bilirubin (0.0-0.2) mg/dL AST (14-36) U/L ALT (4-34) U/L Troponin I 3.020 H* 2.690 H* (0.000-0.034) ng/mL Procalcitonin (0.02-0.09) ng/mL 01/14/22 01/14/22 01/15/22 Range/Units 19:56 22:14 06:04 APTT 60.3 H (22.0-30.0) sec Potassium (3.5-5.1) mmol/L BUN (7-17) mg/dL Creatinine (0.52-1.04) mg/dL Glucose (74-99) mg/dL POC Glucose (mg/dL) 177 H 121 H (70-110) mg/dL Delta Bilirubin (0.0-0.2) mg/dL AST (14-36) U/L ALT (4-34) U/L Troponin I (0.000-0.034) ng/mL Procalcitonin (0.02-0.09) ng/mL 01/15/22 01/15/22 Range/Units 06:20 06:20 APTT 53.9 H (22.0-30.0) sec Potassium (3.5-5.1) mmol/L BUN 36 H (7-17) mg/dL Creatinine 1.14 H (0.52-1.04) mg/dL Glucose 122 H (74-99) mg/dL POC Glucose (mg/dL) (70-110) mg/dL Delta Bilirubin (0.0-0.2) mg/dL AST 60 H (14-36) U/L ALT 36 H (4-34) U/L Troponin I (0.000-0.034) ng/mL Procalcitonin (0.02-0.09) ng/mL Assessment and Plan Assessment: Acute and chronic systolic CHF with ejection fraction 45% Elevated troponin, rule out ACS Moderate aortic stenosis left hand bump 1 month Hypertension Hyperlipidemia Type 2 diabetes mellitus Paroxysmal atrial fibrillation History of coronary artery disease status post PCI History of renal cancer status post recent right tumor removal from the right kidney,, nephrectomy Elevated troponin Chronically Mildly elevated liver enzymes Plan: This is a pleasant 27 years old female who presents with CHF exacerbation Continue with heparin drip and Plavix. Discontinue aspirin per cardiology's recommendation Continue with IV Lasix and a fluid restriction, switched to oral dose today or tomorrow Monitor input and output and creatinine Cardiology consult Orthopedic consult Labs and medication were reviewed.. Continue same treatment. Continue with symptomatic treatment. Resume home medication. Monitor labs and vitals. DVT and GI prophylaxis. Further recommendations as per clinical course of the patient DVT prophylaxis: heparin GI Prophylaxis: Pepcid PT/OT: Pending Prognosis is guarded
[2022-01-15] MEDS ORDERED: FAMOTIDINE 20 MG/2 ML VIAL IV SCH (09:00)
--- NOTE | 2022-01-15 10:01 | US ---
EXAMINATION TYPE: US liver DATE OF EXAM: 01/15/2022 COMPARISON: CT CLINICAL HISTORY: high anupama enz. Mildly elevated LFT's, GB removed, right renal mass removed in 2021 TECHNIQUE: Multiple sonographic images of the right upper quadrant are obtained. FINDINGS: EXAM MEASUREMENTS: Liver Length: 15.5 cm CBD: 0.8 cm Right Kidney: 10.7 x 4.5 x 5.1 cm FIELD REIMBURSEMENT MANAGER NOTES: Pancreas: 2mm panc duct visualized, tail obscured by overlying bowel gas Liver: Heterogeneous, otherwise appeared wnl Gallbladder: Surgically absent Evidence for sonographic Diaz's sign: No CBD: wnl, post jack Right Kidney: Possible mildly dilated renal pelvis vs. parapelvic cyst as visualize on CT There is no right pleural effusion and no free fluid in the right upper quadrant. IMPRESSION: 1. Cholecystectomy. Prominent common bile duct likely on the basis of the gallbladder removal. 2. No significant abnormality of the liver or pancreas
--- NOTE | 2022-01-15 10:06 | P.CNOR ---
History of Present Illness - [facility] Consult date: 01/15/22 Requesting physician: Max E Klaus Consult reason: other (left hand bump) History of present illness: Patient is a 77-year-old female with multiple medical comorbidities and past medical history of hypertension, hyperlipidemia, diabetes, CAD, atrial fibrillation. Patient presented the hospital on 01/13/2022 due to increasing shortness of breath. Orthopedics has been consulted for left hand bump. Patient was seen at bedside this morning resting comfortably lying in semirecumbent position. Patient states about a month ago she had an IV in her left hand on the dorsum and once it was removed she noticed redness and increased swelling to this area on the left hand. Over the past several weeks she has noticed that the area of swelling has decreased to one specific area on her hand. Patient denies having any drainage from this area/increased warmth. Patient says this area is annoying to her. Patient says it is somewhat painful to the touch. Patient states it does not interfere with the function in her fingers or her wrist. Patient denies any numbness/tingling in the left hand. Patient denies any weakness in the wrist/hand. Patient denies chest pain, fever, nausea, vomiting, change in vision, loss of bowel/bladder control. Past Medical History Past Medical History: Coronary Artery Disease (CAD), Diabetes Mellitus, Eye Di sorder, Hyperlipidemia, Hypertension, Myocardial Infarction ([place]) Additional Past Medical History / Comment(s): HEART MURMUR. mass right kidney, hx migraines, macular degeneration,currently on antibiotic for UTI Last Myocardial Infarction Date:: April 2021 History of Any Multi-Drug Resistant Organisms: None Reported Past Surgical History: Appendectomy, Back Surgery, Breast Surgery, Cholecystectomy, Heart Catheterization With Stent, Hysterectomy, Orthopedic Surgery Additional Past Surgical History / Comment(s): "NECK LAMINECTOMY". LEFT BREAST BIOPSY, 2 cardiac stents, left shoulder rotator cuff, rt cataract Past Anesthesia/Blood Transfusion Reactions: No Reported Reaction Date of Last Stent Placement:: April 2021 Past Psychological History: Anxiety Smoking Status: Never smoker Past Alcohol Use History: None Reported Past Drug Use History: None Reported - Past Family History Mother Additional Family Medical History / Comment(s): "HEART PROBLEMS". BRAIN AN EURYSM. Father Family Medical History: Myocardial Infarction ([place]) Medications and Allergies Home Medications Medication Instructions Recorded Confirmed Type Aspirin 81 mg PO DAILY 30 Days #30 05/11/21 01/13/22 Rx Clopidogrel [Plavix] 75 mg PO DAILY 06/22/21 01/13/22 History Nitroglycerin Sl Tabs [Nitrostat] 0.4 mg SUBLINGUAL Q5M PRN 06/22/21 01/13/22 History Atorvastatin [Lipitor] 80 mg PO HS 11/22/21 01/13/22 History Healty Eyes 1 tab PO DAILY 11/22/21 01/13/22 History Apixaban [Eliquis] 5 mg PO BID #180 tab 12/12/21 01/13/22 Rx Acetaminophen Tab [Tylenol] 650 mg PO Q6HR PRN tab 12/13/21 01/13/22 Rx Empagliflozin [Jardiance] 25 mg PO DAILY #30 tablet 12/13/21 01/13/22 Rx Furosemide [Lasix] 40 mg PO DAILY #30 tab 12/13/21 01/13/22 Rx Metoprolol Tartrate [Lopressor] 50 mg PO BID #60 tab 12/13/21 01/13/22 Rx amLODIPine [Norvasc] 5 mg PO DAILY #30 tab 12/13/21 01/13/22 Rx Albuterol Inhaler [Ventolin Hfa 1 - 2 puff INHALATION RT-Q6H PRN 01/13/22 01/13/22 History Inhaler] Doxycycline Hyclate 100 mg PO BID 01/13/22 01/13/22 History Glimepiride [Amaryl] 2 mg PO AC-BRKFST 01/13/22 01/13/22 History Allergies Allergy/AdvReac Type Severity Reaction Status Date / Time enalaprilat [From Vasotec] Allergy Anaphylaxis Verified 01/13/22 13:09 Physical Examination Raised area on the dorsum of the left hand is present which is about 1 cm x 1 cm in diameter. Negative for fluctuance/purulence. Area is mobile and painful to touch. Patient does have full sensation in bilateral upper extremities on exam. Sensation is equal, symmetric, bilaterally intact. Patient does have good range of motion in the left wrist in flexion/extension and good flexion/extension and all joints in the digits of the left upper extremity. Radial pulses intact, 2+ bilaterally. Event Producer strength 5/5 bilaterally in upper extremities. Wrist flexion/extension 5/5. Results - Labs Labs: Abnormal Lab Results - Last 24 Hours (Table) 01/14/22 01/14/22 01/14/22 Range/Units 07:46 11:53 14:26 APTT (22.0-30.0) sec BUN (7-17) mg/dL Creatinine (0.52-1.04) mg/dL Glucose (74-99) mg/dL POC Glucose (mg/dL) 192 H (70-110) mg/dL AST (14-36) U/L ALT (4-34) U/L Troponin I 3.020 H* (0.000-0.034) ng/mL Procalcitonin 0.27 H (0.02-0.09) ng/mL 01/14/22 01/14/22 01/14/22 Range/Units 16:57 18:01 19:56 APTT (22.0-30.0) sec BUN (7-17) mg/dL Creatinine (0.52-1.04) mg/dL Glucose (74-99) mg/dL POC Glucose (mg/dL) 152 H 177 H (70-110) mg/dL AST (14-36) U/L ALT (4-34) U/L Troponin I 2.690 H* (0.000-0.034) ng/mL Procalcitonin (0.02-0.09) ng/mL 01/14/22 01/15/22 01/15/22 Range/Units 22:14 06:04 06:20 APTT 60.3 H (22.0-30.0) sec BUN 36 H (7-17) mg/dL Creatinine 1.14 H (0.52-1.04) mg/dL Glucose 122 H (74-99) mg/dL POC Glucose (mg/dL) 121 H (70-110) mg/dL AST 60 H (14-36) U/L ALT 36 H (4-34) U/L Troponin I (0.000-0.034) ng/mL Procalcitonin (0.02-0.09) ng/mL 01/15/22 Range/Units 06:20 APTT 53.9 H (22.0-30.0) sec BUN (7-17) mg/dL Creatinine (0.52-1.04) mg/dL Glucose (74-99) mg/dL POC Glucose (mg/dL) (70-110) mg/dL AST (14-36) U/L ALT (4-34) U/L Troponin I (0.000-0.034) ng/mL Procalcitonin (0.02-0.09) ng/mL H & H 01/13/22 01/14/22 01/14/22 Range/Units 11: 07:46 16:19 Hgb 14.2 12.7 13.1 (11.4-16.0) gm/dL Hct 43.3 38.4 38.8 (34.0-46.0) % 01/15/22 Range/Units 06:20 Hgb 13.7 (11.4-16.0) gm/dL Hct 41.4 (34.0-46.0) % Coagulation 01/13/22 01/14/22 01/15/22 Range/Units 11: 16:19 06:20 INR 1.0 1.0 1.1 (<1.2) Result Diagrams: 01/15/22 06:20 01/15/22 06:20 Assessment and Plan Assessment: 1. Lesion, left hand dorsum Plan: 1. Lesion, left hand dorsum - patient stable bedside this morning. Lesion is present on the dorsum the left hand. May be a ganglion cyst versus vascular lesion. At this time he do not recommend any emergent/urgent orthopedic surgical intervention. Patient may follow-up in the outpatient setting with Dr. Perez for further evaluation. Recommend pain medication as needed. Patient is encouraged to perform range of motion exercises in the wrist and digits of the upper extremity. Patient is stable from an orthopedic standpoint for discharge. At this time orthopedics is signing off. Please not hesitate to contact us for any further questions. 2. Appreciate medical management 3. Pain management - Tylenol 4. GI recs 5. DVT prophylaxis - Plavix; heparin 6. PT/OT - weightbearing as tolerated left upper extremity 7. Appreciate consult Time with Patient: Less than 30
[2022-01-15] MEDS ORDERED: NITROGLYCERIN SL TABS 0.4 MG TAB SUBLINGUAL PRN (10:38)
[2022-01-15] MEDS ORDERED: ASPIRIN 325 MG TAB PO STA (10:38)
[2022-01-15] MEDS ORDERED: ALPRAZolam 0.5 MG TAB PO PRN (10:38)
[2022-01-15] MEDS ORDERED: ATORVASTATIN 80 MG TAB PO STA (10:38)
[2022-01-15] MEDS ORDERED: ALPRAZolam 0.25 MG TAB PO PRN (10:38)
--- NOTE | 2022-01-15 10:38 | P.PN ---
Subjective HISTORY OF PRESENTING ILLNESS Patient is pleasant 77-year-old female with history of hypertension, hyperlipidemia, diabetes mellitus type 2, CAD with previous stenting, congestive heart failure, paroxysmal atrial fibrillation. She normally follows with Dr. Nieto. She has had previous admission 11/29/2021 with non-STEMI with troponins up to 41. Echo 11/30/2021 showed EF 45% with moderate to severely increased left ventricular wall thickness as well as moderate aortic stenosis. During previous admissions she was having more chest pain however denies any since that time. She presents with 2 days of worsened shortness of breath. She denies any lower extremity edema. She does believe she may have missed a dose or 2 of her Lasix. Blood pressure mildly elevated in the 160s over 90s on presentation. She did receive IV Lasix and currently states she is feeling much better. First troponin mildly elevated at 0.09 however had been elevated in the past. White blood cell count 12.2, hemoglobin 14.2, BUN 32, creatinine 1.2, AST 44, proBNP 2080. 01/15 Patient seen and examined. Patient denies any chest pain or pressure. Surprisingly her second and third troponin significantly elevated up to 3.0 in and 2.7. EKG shows no significant changes. PHYSICAL EXAMINATION Vital signs reviewed. CONSTITUTIONAL: No apparent distress. HEENT: Head is normocephalic. Pupils are equal, round. Sclerae anicteric. Mucous membranes of the mouth are moist. No JVD. No carotid bruit. CHEST EXAMINATION: Lungs are clear to auscultation. No chest wall tenderness is noted on palpation or with deep breathing. HEART EXAMINATION: Regular rate and rhythm. S1, S2 heard. No murmurs, gallops or rub. ABDOMEN: Soft, nontender. Positive bowel sounds. EXTREMITIES: 2+ peripheral pulses, no lower extremity edema and no calf tenderness. NEUROLOGIC EXAMINATION: Patient is awake, alert and oriented x3. ASSESSMENT 1. Acute on chronic diastolic heart failure EF 45% 2. NSTEMI, significantly elevated concerning for Type 1 mechanism however no obvious angina symptoms 3. CAD with previous history of PCI 4. Paroxysmal atrial fibrillation currently sinus rhythm 5. Hypertension 6. Diabetes mellitus type 2 PLAN Majority of symptoms initially thought related to heart failure, however significant troponin elevation. Eliquis was stopped and patient was placed on heparin drip given significantly elevated troponins. Patient denied any chest pain or pressure however concern of type I non-STEMI with mild drop in ejection fraction 45%. Discussed definitive assessment with [facility] and patient is agreeable. C likely tomorrow with Dr Nieto. Objective - Vital Signs Vital signs: Vital Signs Temp 98.1 F 01/15/22 08:20 Pulse 65 01/15/22 08:20 Resp 17 01/15/22 08:20 BP 140/65 01/15/22 08:20 Pulse Ox 94 L 01/15/22 08:20 FiO2 40 01/14/22 05:35 Intake & Output 01/14/22 01/15/22 01/15/22 18:59 06:59 18:59 Intake Total 720 1012.245 Balance 720 1012.245 Weight 67.5 kg 66.5 kg Intake: Intake, IV Titration 52.245 Amount Heparin Sod,Pork in 0.45% 52.245 NaCl 25,000 unit In 0.45 % NaCl 1 250ml.bag @ 12 UNITS/KG/HR 8.1 mls/hr IV .Q24H [facility] Rx#:[id number] Oral 720 960 Other: Voiding Method Bedside Commode # Voids 2 3 - Labs CBC & Chem 7: 01/15/22 06:20 01/15/22 06:20 Labs: Abnormal Lab Results - Last 24 Hours (Table) 01/14/22 01/14/22 01/14/22 Range/Units 07:46 11:53 14:26 APTT (22.0-30.0) sec BUN (7-17) mg/dL Creatinine (0.52-1.04) mg/dL Glucose (74-99) mg/dL POC Glucose (mg/dL) 192 H (70-110) mg/dL AST (14-36) U/L ALT (4-34) U/L Troponin I 3.020 H* (0.000-0.034) ng/mL Procalcitonin 0.27 H (0.02-0.09) ng/mL 01/14/22 01/14/22 01/14/22 Range/Units 16:57 18:01 19:56 APTT (22.0-30.0) sec BUN (7-17) mg/dL Creatinine (0.52-1.04) mg/dL Glucose (74-99) mg/dL POC Glucose (mg/dL) 152 H 177 H (70-110) mg/dL AST (14-36) U/L ALT (4-34) U/L Troponin I 2.690 H* (0.000-0.034) ng/mL Procalcitonin (0.02-0.09) ng/mL 01/14/22 01/15/22 01/15/22 Range/Units 22:14 06:04 06:20 APTT 60.3 H (22.0-30.0) sec BUN 36 H (7-17) mg/dL Creatinine 1.14 H (0.52-1.04) mg/dL Glucose 122 H (74-99) mg/dL POC Glucose (mg/dL) 121 H (70-110) mg/dL AST 60 H (14-36) U/L ALT 36 H (4-34) U/L Troponin I (0.000-0.034) ng/mL Procalcitonin (0.02-0.09) ng/mL 01/15/22 Range/Units 06:20 APTT 53.9 H (22.0-30.0) sec BUN (7-17) mg/dL Creatinine (0.52-1.04) mg/dL Glucose (74-99) mg/dL POC Glucose (mg/dL) (70-110) mg/dL AST (14-36) U/L ALT (4-34) U/L Troponin I (0.000-0.034) ng/mL Procalcitonin (0.02-0.09) ng/mL
[2022-01-15 11:37] LABS: Glucose,Whole Blood 166 mg/dL (70-110)
[2022-01-15 16:38] LABS: Glucose,Whole Blood 135 mg/dL (70-110)
[2022-01-15] MEDS: HEPARIN SOD,PORK IN 0.45% NACL 25,000 UNIT in 0.45% NACL 1 250ML.BAG IV SCH (16:46)
[2022-01-15 20:13] LABS: Glucose,Whole Blood 142 mg/dL (70-110)
[2022-01-15] MEDS: ATORVASTATIN 80 MG TAB PO SCH (21:28)
[2022-01-16] MEDS ORDERED: SODIUM CHLORIDE 0.9% 1,000 ML in EMPTY BAG 1 BAG IV ONE
[2022-01-16] MEDS: GLIMEPIRIDE 2 MG TAB PO SCH (05:27)
[2022-01-16] MEDS: INSULIN ASPART (NovoLOG) 100 UNIT/ML VIAL SQ SCH ×4 (05:27→20:35)
[2022-01-16] MEDS: FAMOTIDINE 20 MG TAB PO SCH (05:37)
[2022-01-16] MEDS: FUROSEMIDE 10 MG/ML 4 ML VIAL IV SCH ×2 (05:37→20:35)
[2022-01-16] MEDS: CLOPIDOGREL 75 MG TAB PO SCH (05:38)
[2022-01-16] MEDS: METOPROLOL TARTRATE 50 MG TAB PO SCH ×2 (05:38→20:35)
[2022-01-16] MEDS: amLODIPine 5 MG TAB PO SCH (05:38)
[2022-01-16] MEDS ORDERED: ASPIRIN 325 MG TAB PO ONE (06:00)
[2022-01-16] MEDS ORDERED: ATORVASTATIN 80 MG TAB PO ONE (06:00)
[2022-01-16 06:11] LABS: Glucose,Whole Blood 163 mg/dL (70-110)
[2022-01-16] MEDS ORDERED: HEPARIN SODIUM,PORCINE 2,500 UNIT in SODIUM CHLORIDE 0.9% 250 ML IRRIGATION PRN (07:00)
[2022-01-16] MEDS ORDERED: HEPARIN SODIUM,PORCINE 10,000 UNIT in SODIUM CHLORIDE 0.9% 1,000 ML IRRIGATION PRN (07:00)
[2022-01-16] MEDS ORDERED: VERAPAMIL 2.5 MG/ML 2 ML AMP ONE (07:26)
[2022-01-16] MEDS ORDERED: fentaNYL (PF) 50 MCG/ML 2 ML AMP ONE (07:44)
[2022-01-16] MEDS ORDERED: HEPARIN SODIUM 1,000 UN/ML (10ML VL) ONE (07:44)
[2022-01-16] MEDS ORDERED: IV FLUID CONTINUATION 700 ML IV ONE (07:46)
[2022-01-16] MEDS ORDERED: MIDAZOLAM 2 MG/2 ML VIAL IV ONE (07:53)
[2022-01-16] MEDS: VERAPAMIL SYRINGE (5 MG/10 ML) INTRAARTER ONE ×2 (07:56→08:14)
[2022-01-16] MEDS ORDERED: LIDOCAINE 1% INJ 10MG/ML (5 ML VIAL-PF) SQ ONE (07:56)
[2022-01-16] MEDS ORDERED: HEPARIN SODIUM 1,000 UN/ML (10ML VL) IV ONE (08:08)
[2022-01-16] MEDS ORDERED: IOPAMIDOL-370 100ML BTL INJ ONE (08:15)
[2022-01-16] MEDS ORDERED: RX INFO: IV CONTRAST WAS GIVEN 1 EACH MISC MISCELLANE PRN (08:23)
[2022-01-16] MEDS ORDERED: SODIUM CHLORIDE 0.9% 1,000 ML IV SCH (08:30)
--- NOTE | 2022-01-16 08:30 | P.PCN ---
Date of Procedure: 01/16/22 Operative Findings: CARDIAC CATHETERIZATION PERFORMING PHYSICIAN: Roldan Nieto MD, RPVI PROCEDURE PERFORMED: 1. Selective right and left coronary angiogram 2. Left heart catheterization 3. FFR of the RCA INDICATION: This is a 77-year-old female patient was coronary artery disease and prior stenting of the LCx and LAD who presented to the hospital with sudden onset of chest discomfort associated with shortness of breath and she was ruled in for acute coronary event. Further investigation risk stratification was performed including an echo which revealed impaired LV function was EF between 40-45%. In the light of that a heart catheterization was advised. COMPLICATION: None APPROACH: Right radial artery LEVEL OF SEDATION: Moderate with a sedation length of 20 minutes PROCEDURE DESCRIPTION: After obtaining an informed consent, the patient was brought to cardiac director of cath lab. Local anesthesia was performed using lidocaine subcutaneously. The right radial artery was cannulated using Seldinger technique, the guidewire passed eas zaynab, following that we advanced a 5-Bolivian sheath dilator assembly, the wire and dilator were removed and sheath was flushed. Following that, 2 mg of verapamil along with 5000 unit heparin were given. Selective right and left coronary angiogram using a 6-Bolivian JR4 and JL 3.5 catheters. Following that we did left heart catheterization using 6-Bolivian pigtail catheter. The procedure was completed there was no complication. SELECTIVE CORONARY ANGIOGRAM: The right coronary artery: Large caliber vessel and dominant vessel. The proximal RCA has intermediate lesion right after the bifurcation of the acute marginal branch. The lesion appears to be in the range of 60-70%. IFR was performed and came in to be ischemic at 0.89. The RCA in the mid and distal portion appears to have mild disease only. Left main: The distal left main is a hazy with thrombolytic lesion appeared to be in the range of at least 60%. That lesion is involving the ostial LCx an ostial LAD. The left circumflex: The LCx is a large caliber vessel and a codominant vessel. The ostial LCx is involved in that lesion from the left main and appears to have another thromboti c lesion appears to be in the range of 99.9%. The LCx after that has mild to moderate diffuse disease. It gives rises into the first and second obtuse marginal branches both appears to have mild diffuse disease only. They are a medium caliber vessel only. The LCx distally gives rises into a large PDA which appeared to be angiographically normal. The left anterior descending artery: The ostial LAD is involved from the lesion in the left main. It has a lesion appeared to be in the range of 99.9%. The LAD after that is a stented and the stent is patent. The mid LAD appears to have diffuse disease of about 50%. The LAD gives rise into a diagonal branch which has intermediate lesion proximally. The LAD does reach the apex. HEMODYNAMICS: The LVEDP was 20 mmHg was no significant gradient across aortic valve FFR OF THE RCA: After zeroing the Doppler wire and equalizing between the Doppler wire and the guiding catheter which was JR 3.5 guiding catheter with an FFR. As a matter of fact we did only iFR and that came in to be ischemic at 0.89. CONCLUSION: 1. Thrombotic lesion appeared to be critical involving the distal left main and ostial LCx and LAD. 2. Intermediate lesion involving the RCA. iFR was performed and came in to be flow limiting at 0.89 3. Elevated left-sided filling pressure POSTPROCEDURE MANAGEMENT: Consider consult from cardiothoracic a surgeon regarding the evaluation of CABG giving the above anatomy.
[2022-01-16 08:41] LABS: Glucose,Whole Blood 147 mg/dL (70-110)
--- NOTE | 2022-01-16 10:05 | P.PN ---
Subjective This is a pleasant 77 years old female with past medical history of hypertension, hyperlipidemia, diabetes mellitus, coronary artery disease on dual and platelet therapy and chronic atrial fibrillation on Eliquis at home. Patient also recently had undergone right tumor removal from the right kidney for renal cancer (she follows up with Dr. Del Cid and Dr. Hernadez) Patient presents because of dyspnea and dry coughing for about one day duration with no chest pain but she has some chest heaviness on admission that since resolved with nitroglycerin drip. She denies any headache or dizziness or GI or urinary symptoms. She is not on home oxygen, she denies smoking alcohol or illicit drug Vitas looks stable, blood pressure slightly elevated. Patient is slightly tachypneic. patient has mild leukocytosis of 12.2, rest of CBC, BMP is unremarkable. Creatinine at baseline of 1.2. Which is at baseline Because elevated 318 AST 44 and ALT 53, which are mildly elevated Troponin is elevated 0.09. EKG showing sinus rhythm at [address]-T changes Chest x-ray: Correlate for CHF echocardiogram from 11/30/2021 showing ejection fraction 45% with moderate aortic stenosis Patient received IV Lasix and extra dose of aspirin and nitroglycerin and drip with guide dog trainer consulted 01/14/2022 Patient states that she feels better, she is now back to baseline. She is not coughing much. stable including creatinine 1.1, liver enzymes are the same. Vitals are stable. patient on 2 L of oxygen via nasal cannula, she was not on home oxygenejection fraction 45% also patient has chronic A. fib and mildly elevated liver enzymes Continue with IV Lasix for tumor, twice daily and Eliquis home dose of 5 mg as well as aspirin and Plavix To resume Amaryl, shortness is not available in this hospital continue with insulin sliding scale 01/15/2022 Patient awake and alert, no dyspnea while sitting in bed. No chest pain. No other complaint. She still complaining of from her bump in her dorsum of the left hand times one month slightly tender with no signs of cellulitis. Orthopedic team were consulted and pending. Gospel Singer also on the case, her troponin was elevated last night and her Eliquis switched to heparin drip. Aspirin was discontinued by guide dog trainer while keeping Plavix to lower the risk of bleeding. She is also on IV Lasix which could be switched to oral does sewn Possible discharge in 24-48 hours 01/16/2022 This morning she was asymptomatic with no chest pain or dyspnea Patient underwent cardiac cath, showing critical disease involving the distal left main and ostial left circumflex and LAD coronary arteries, given extensive coronary artery disease involvement cardiothoracic surgery consult is recommended by guide dog trainer Hemodynamically stable, labs stable. Patient remains on Plavix and heparin drip Objective - Vital Signs Vital signs: Vital Signs Temp 98 F 01/16/22 08:35 Pulse 50 L 01/16/22 09:05 Resp 16 01/16/22 09:05 BP 118/56 01/16/22 09:05 Pulse Ox 95 01/16/22 09:05 FiO2 40 01/14/22 05:35 Intake & Output 01/15/22 01/16/22 01/16/22 18:59 06:59 18:59 Intake Total 144.18 895 169.205 Balance 144.18 895 169.205 Weight 67.1 kg Intake: IV 325 50 Sodium Chloride 0.9% 1, 325 000 ml In Empty Bag 1 bag @ 1 ML/KG/HR 66.5 mls/hr IV .Q15H3[facility] Rx#: [id number] Intake, IV Titration 144.18 119.205 Amount Heparin Sod,Pork in 0.45% 144.18 119.205 NaCl 25,000 unit In 0.45 % NaCl 1 250ml.bag @ 12 UNITS/KG/HR 8.1 mls/hr IV .Q24H [facility] Rx#:[id number] Oral 570 0 Other: Voiding Method Bedside Commode Toilet # Voids 1 2 - Exam -GENERAL: The patient is alert and oriented x3, not in any acute distress.obese HEENT: Pupils are round and equally reacting to light. EOMI. No scleral icterus. No conjunctival pallor. Normocephalic, atraumatic. No pharyngeal erythema. No thyromegaly. -CARDIOVASCULAR: S1 and S2 present. No murmurs, rubs, . gallops. PULMONARY: Chest is clear to auscultation, no wheezing or crackles. ABDOMEN: Soft, nontender, nondistended, normoactive bowel sounds. No palpable organomegaly. MUSCULOSKELETAL: No joint swelling or deformity. EXTREMITIES: No cyanosis, clubbing, or pedal edema. NEUROLOGICAL: Gross neurological examination did not reveal any focal deficits. SKIN: No rashes. no petechiae.bilateral basal - Labs CBC & Chem 7: 01/15/22 06:20 01/15/22 06:20 Labs: Abnormal Lab Results - Last 24 Hours (Table) 01/15/22 01/15/22 01/15/22 Range/Units 11:36 16:36 20:12 POC Glucose (mg/dL) 166 H 135 H 142 H (70-110) mg/dL 01/16/22 01/16/22 Range/Units 06:10 08:40 POC Glucose (mg/dL) 163 H 147 H (70-110) mg/dL Assessment and Plan Assessment: Acute and chronic systolic CHF with ejection fraction 45% Elevated troponin, cardiac cath showing critical disease involving the left distal main coronary artery as well as left circumflex and LAD Moderate aortic stenosis left hand bump 1 month, orthopedic team recommended outpatient follow-up Hypertension Hyperlipidemia Type 2 diabetes mellitus Paroxysmal atrial fibrillation History of coronary artery disease status post PCI History of renal cancer status post recent right tumor removal from the right kidney,, nephrectomy Elevated troponin Chronically Mildly elevated liver enzymes Plan: This is a pleasant 27 years old female who presents with CHF exacerbation Consult cardiothoracic surgery team for coronary artery disease Continue with heparin drip and Plavix. Discontinue aspirin per cardiology's recommendation Continue with IV Lasix and a fluid restriction, switched to oral dose today or tomorrow Monitor input and output and creatinine Cardiology consult Orthopedic consult, follow-up outpatient for her hydration Labs and medication were reviewed.. Continue same treatment. Continue with symptomatic treatment. Resume home medication. Monitor labs and vitals. DVT and GI prophylaxis. Further recommendations as per clinical course of the patient DVT prophylaxis: heparin GI Prophylaxis: Pepcid PT/OT: Pending Prognosis is guarded
[2022-01-16 10:40] LABS: HCT 42.8 % (34.0-46.0); HGB 14.3 gm/dL (11.4-16.0); Hypochromasia Slight; MCH 29.7 pg (25.0-35.0); MCHC 33.4 g/dL (31.0-37.0); MCV 88.9 fL (80.0-100.0); Mean Platelet Volume 8.5; Platelet Count 172 k/uL (150-450); Poikilocytosis Slight; RBC 4.81 m/uL (3.80-5.40); RDW 15.5 % (11.5-15.5); WBC 6.8 k/uL (3.8-10.6)
[2022-01-16 10:53] LABS: INR 1.1 (<1.2); Prothrombin Time 11.9 sec (9.0-12.0)
--- NOTE | 2022-01-16 11:04 | P.GSCN ---
History of Present Illness Consult date: 01/16/22 Reason for Consult: Coronary artery disease, evaluation for myocardial revascularization surgery Requesting physician: Roldan Nieto History of present illness: This is a 77-year-old female patient who follows with Dr. Haritha Villatoro on an outpatient basis for her primary care service and Dr. Nieto for her cardiology care. She has a past medical history significant for coronary artery disease with history of stent placement to her proximal left circumflex coronary artery, and proximal left anterior descending coronary artery, history of hypertension, hyperlipidemia, acute on chronic diastolic congestive heart failure with an ejection fraction of 45%, diabetes mellitus type 2, paroxysmal atrial fibrillation on Eliquis for anticoagulation on an outpatient basis, history of non-ST elevated myocardial infarction, renal insufficiency with a baseline creatinine of 1.2-1.3, status post removal of right renal mass with 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 The patient reports on 01/13/2022 after eating breakfast she was cleaning dishes and developed an acute onset of shortness of breath with some chest heaviness. She denies any complaints of fever, chills, diaphoresis, chest pain, lightheadedness, cough, diarrhea, constipation, headache, palpitations, presyncope or syncope. Subsequently, due to the shortness of breath and chest heaviness she called 911. She presented to the emergency department here at [facility] via EMS with the above mentioned symptoms. On admission a 12-lead EKG was completed which showed normal sinus rhythm with left ventricular hypertrophy and STT abnormality with a heart rate of 88 BPM. Initial laboratory results showed a WBC count of 12.2, hemoglobin 14.2, hematocrit 43.3, platelets 152, PT 10.9, INR 1.0, PTT 24.8, sodium 138, potassium 3.8, BUN 32, creatinine 1.20, glucose 318, plastic venous lactic acid 2.7, calcium 9.3, magnesium 1.8, AST 44, ALT 53, and alkaline phosphatase 130. The patient also had elevated serial troponins as high as 3.020 and was trending down to 2.690 ruling her in for a non-ST elevation myocardial infarction. The patient recently underwent a transthoracic 2-D echocardiogram completed on which showed her left ventricle to be moderately increased septal wall thickness, severely increased posterior wall thickness, a left ventricular ejection fraction estimated at 45%, mild mitral valve regurgitation, moderate aortic valve stenosis with a peak gradient of 36 mmHg and a mean gradient of 21 mmHg, no pericardial effusion and a normal size aortic root and proximal ascending aorta. Cardiology was consulted due to her presenting symptoms, history of coronary artery disease with previous stent placements, and elevated troponins. The patient was subsequently taken for a selective right and left coronary angiogram, left heart catheterization and FFR of the right coronary artery today which demonstrated her distal left main to be hazy with a thrombolytic lesion appeared to be in the range of at least 60% and involving the ostial left circumflex and ostial left anterior descending coronary artery, it also demonstrated what appeared to be a thrombotic lesion to her ostial left circumflex coronary artery in the range of 99.9%, mild disease to her first and second obtuse marginal coronary artery branches, a patent stent to her left anterior descending coronary artery, a 99.9% stenosis to her ostial left anterior descending coronary artery from the lesion in the left main, a 50% stenosis to her mid left anterior descending coronary artery, and her right coronary artery has an intermediate lesion of 60-70% after the bifurcation of the acute marginal branch, for further evaluation an IFR was completed by Dr. Nieto and was shown to be ischemic at 0.89. Subsequently, due to the above- mentioned findings a consult was placed to Dr. Juan Mcdonald from cardiothoracic surgery for further evaluation and treatment recommendations. Review of Systems A 14 point review systems was completed and was negative except as mentioned in the HPI. Past Medical History Past Medical History: Coronary Artery Disease (CAD) (History of stent placement to her circumflex and left anterior descending coronary artery in April 2021), Cancer (Right renal mass removed in November 2021, with pathology positive for clear cell renal cell carcinoma), Heart Failure (Acute on chronic diastolic heart failure with an ejection fraction of 45%), Diabetes Mellitus, Eye Disorder, Hyperlipidemia, Hypertension, Myocardial Infarction ([place]), Renal Disease (Baseline creatinine of 1.2-1.3) Additional Past Medical History / Comment(s): HEART MURMUR. mass right kidney, hx migraines, macular degeneration,currently on antibiotic for UTI Last Myocardial Infarction Date:: April 2021 History of Any Multi-Drug Resistant Organisms: None Reported Past Surgical History: Appendectomy, Back Surgery, Breast Surgery, Cholecystectomy, Heart Catheterization With Stent, Hysterectomy, Orthopedic Surgery Additional Past Surgical History / Comment(s): "NECK LAMINECTOMY". LEFT BREAST BIOPSY, 2 cardiac stents, left shoulder rotator cuff, rt cataract, removal of right renal mass in November 2021 for clear cell renal carcinoma Past Anesthesia/Blood Transfusion Reactions: No Reported Reaction Date of Last Stent Placement:: April 2021 Past Psychological History: Anxiety Smoking Status: Never smoker Past Alcohol Use History: None Reported Past Drug Use History: None Reported - Past Family History Mother Additional Family Medical History / Comment(s): "HEART PROBLEMS". BRAIN ANEURYSM. Father Family Medical History: Myocardial Infarction ([place]) Sister(s) Family Medical History: Coronary Artery Disease (CAD) Additional Family Medical History / Comment(s): Her twin sister had myocardial revascularization surgery at age 70. Medications and Allergies Home Medications Medication Instructions Recorded Confirmed Type Aspirin 81 mg PO DAILY 30 Days #30 05/11/21 01/13/22 Rx Clopidogrel [Plavix] 75 mg PO DAILY 06/22/21 01/13/22 History Nitroglycerin Sl Tabs [Nitrostat] 0.4 mg SUBLINGUAL Q5M PRN 06/22/21 01/13/22 History Atorvastatin [Lipitor] 80 mg PO HS 11/22/21 01/13/22 History Healty Eyes 1 tab PO DAILY 11/22/21 01/13/22 History Apixaban [Eliquis] 5 mg PO BID #180 tab 12/12/21 01/13/22 Rx Acetaminophen Tab [Tylenol] 650 mg PO Q6HR PRN tab 12/13/21 01/13/22 Rx Empagliflozin [Jardiance] 25 mg PO DAILY #30 tablet 12/13/21 01/13/22 Rx Furosemide [Lasix] 40 mg PO DAILY #30 tab 12/13/21 01/13/22 Rx Metoprolol Tartrate [Lopressor] 50 mg PO BID #60 tab 12/13/21 01/13/22 Rx amLODIPine [Norvasc] 5 mg PO DAILY #30 tab 12/13/21 01/13/22 Rx Albuterol Inhaler [Ventolin Hfa 1 - 2 puff INHALATION RT-Q6H PRN 01/13/22 01/13/22 History Inhaler] Doxycycline Hyclate 100 mg PO BID 01/13/22 01/13/22 History Glimepiride [Amaryl] 2 mg PO AC-BRKFST 01/13/22 01/13/22 History Allergies Allergy/AdvReac Type Severity Reaction Status Date / Time enalaprilat [From Vasotec] Allergy Anaphylaxis Verified 01/13/22 13:09 Surgical - Exam Vital Signs Temp Pulse Resp BP Pulse Ox 97.2 F L 89 22 168/91 88 L 01/13/22 11:06 01/13/22 11:06 01/13/22 11:06 01/13/22 11:06 01/13/22 11:06 - General Lying in bed on the cardiac stepdown unit, is awake, alert, oriented 3 and is in no acute apparent distress. well developed, well nourished, no distress, no pain - Eyes PERRL, normal ocular movement, no pale, no icteric - ENT normal pinna, normal nares, normal mucosa, no hearing loss, no congestion, poor half-way - Neck Neck is supple, no lymphadenopathy. no masses, no bruits, trachea midline, no venous distension - Respiratory Lung sounds essentially clear throughout, diminished to her bilateral bases left greater than right. No wheezes, rhonchi or crackles. Respirations are symmetrical and nonlabored. - Cardiovascular Regular rhythm and rate. S1 and S2 present, negative for S3 or gallop. Posi tive systolic murmur heard best to her right sternal border. - Abdomen Abdomen is soft, nontender and nondistended. Active bowel sounds present all 4 abdominal quadrants. No guarding or rigidity. No organomegaly appreciated. - Genitourinary Deferred - Rectum Deferred - Integumentary Skin is warm and dry. No clubbing or cyanosis is present. no rash, no growths, no abnormal pigmentation - Neurologic normal coordination, normal sensation, no disoriented, no confused, no memory loss - Musculoskeletal Moves all 4 extremities with equal strength bilaterally. - Psychiatric oriented to time, oriented to person, oriented to place, speech is normal, memory intact Results - Labs 01/17/22 07:50 01/17/22 07:50 Abnormal Lab Results - Last 24 Hours (Table) 01/15/22 01/15/2222 Range/Units 11:36 16:36 20:12 POC Glucose (mg/dL) 166 H 135 H 142 H (70-110) mg/dL 01/16/22 01/16/22 Range/Units 06:10 08:40 POC Glucose (mg/dL) 163 H 147 H (70-110) mg/dL - Imaging Chest x-ray: report reviewed, image reviewed EKG: image reviewed Additional studies: 2-D echocardiogram results from November 2021 were reviewed. Assessment and Plan Assessment: 1. Triple-vessel coronary artery disease, history of previous stent placement to her left circumflex and left anterior descending coronary arteries in April 2021, currently on Plavix 2. Non-ST elevated myocardial infarction this admission 3. Acute on chronic diastolic heart failure, ejection fraction 45% on most rec ent transthoracic 2-D echocardiogram 4. Dyspnea, likely secondary to above 5. Paroxysmal atrial fibrillation, on Eliqius for anticoagulation on an outpatient basis with her last dose taken on 01/13/2022, currently in normal sinus rhythm 6. History of hypertension 7. Hyperlipidemia 8. Diabetes mellitus type 2 9. History of renal insufficiency with a baseline creatinine of 1.2-1.3 10. History of clear cell renal cell carcinoma with right sided renal mass removed in November 2021 11. Family history of coronary artery disease Plan: The patient was seen and examined at her bedside on the cardiac stepdown unit. Her chart and diagnostics reviewed. Her case was discussed in detail with Dr. Juan Mcdonald from cardiothoracic surgery. Preoperative testing and preoperative teaching has been initiated with the patient and the patient's sister who is present at her bedside. Once the patient is able to ambulate a 5 m walk test will be completed. Once her preoperative testing has been completed an STS risk score will be calculated and discussed with patient. Her Plavix has been put on hold at this time and the patient reports her last dose of Eliquis was on . Continue to maximize her medical therapy with aspirin, statin and beta tito. The patient will be evaluated by Dr. Mcdonald today with more recommended he is to follow. Medical management and other comorbidities per primary care service. Thank you Dr. Nieto for this consult and we look for to working with you in the care of this patient. I have personally seen and examined the patient, performed the documentation and the assessment and plan as written. 30 minutes spent on the visit . Omar ANDERSON Pt seen and examined with Business Project Analyst above. Agree with his findings. This is a 77 y/o F with a hx of CAD s/p PCI to Cx and LAD in April who presented with an NSTEMI and repeat cath shows thrombotic left main disease with RCA disease. She does have a hx of moderate aortic stenosis and recent diagnosis of p-afib. She will need CABG, AVR, +/- PVI with LAAL this admission. In the meantime, we will complete her pre-operative work-up and hold plavix for 5-7 days. Time with Patient: Greater than 30
[2022-01-16 11:48] LABS: Glucose,Whole Blood 196 mg/dL (70-110)
[2022-01-16 12:11] LABS: Band Neutrophils % 1 %; Eosinophils # (M) 0.14 k/uL (0-0.7); Monocytes # (M) 0.34 k/uL (0-1.0); Neutrophils % (M) 67 %; Nucleated Red Blood Cells 0 /100 WBC (0-0); Total Cells Counted 100
[2022-01-16 12:12] LABS: Poikilocytosis (M) Present
--- NOTE | 2022-01-16 12:36 | CT ---
EXAMINATION TYPE: CT chest wo con DATE OF EXAM: 01/16/2022 COMPARISON: 11/29/2021 HISTORY: PreOp Cardiac Surgery, Evaluation of Aorta CT DLP: 335.5 mGycm, Automated exposure control for dose reduction was used. CONTRAST: Performed injected with 0 mL of Isovue 300. TECHNIQUE: Axial images were obtained at 5 mm thick sections. Reconstructed images are reviewed on [email or web address] computer in the coronal plane. FINDINGS: Previous discussed isthmus thickening is again evident. Punctate nodules measuring 0.4 and 0.3 cm in the periphery of the right upper lung field. Series 205 image 23. Minimal pneumonitis changes within the lingula. There may be a small nodule in the anterior lingular base with 0.6 cm. Series 205 image 38. Punctate density in the posterior left costophrenic angle. Series 205 image 43. No enlarged mediastinal or hilar adenopathy is evident. The ascending aorta diameter at the level o f the main pulmonary artery is 3.5 cm. The main pulmonary artery diameter at the bifurcation is 3.4 cm. Vascular calcifications within the aortic arch and descending thoracic aorta. No aneurysmal dilat ation is evident. There is a common origin of the left common carotid artery and innominate artery. Extensive Coronary artery calcification is present. Limited CT sections are obtained through the upper abdomen. Abdomen is essentially unremarkable. IMPRESSIONS: 1. Couple of small nodules within the bilateral lung goodrich discussed above. Previous lung findings h ave significantly improved over the interval.
[2022-01-16 12:44] LABS: ALT 32 U/L (4-34); AST 35 U/L (14-36); African American GFR (CKD) 52 (>60 ml/min/1.73 sqM); Albumin 4.4 g/dL (3.5-5.0); Alkaline Phosphatase 114 U/L (38-126); Anion Gap 14 mmol/L; Bilirubin, Delta 0.3 mg/dL (0.0-0.2); Blood Urea Nitrogen 37 mg/dL (7-17); Calcium 9.4 mg/dL (8.4-10.2); Carbon Dioxide 26 mmol/L (22-30); Chloride 98 mmol/L (98-107); Glucose 258 mg/dL (74-99); Magnesium 2.1 mg/dL (1.6-2.3); Non-African American GFR(CKD) 45 (>60 ml/min/1.73 sqM); Potassium 3.4 mmol/L (3.5-5.1); Sodium 138 mmol/L (137-145); Total Bilirubin 1.3 mg/dL (0.2-1.3)
--- NOTE | 2022-01-16 14:38 | US ---
EXAMINATION TYPE: US carotid duplex BILAT DATE OF EXAM: 01/16/2022 COMPARISON: Prior ultrasound June 07, 2020 CLINICAL HISTORY: Pre-Op Cardiac Surgery. pre op cardiac surgery TECHNIQUE: Carotid duplex ultrasound examination. Indirect Doppler criteria was utilized. FINDINGS: EXAM MEASUREMENTS: RIGHT: Peak Systolic Velocity (PSV) cm/sec ----- Right CCA: 57.0 ----- Right ICA: 94.3 ----- Right ECA: 231.1 ICA/CCA ratio: 1.7 RIGHT: End Diastole cm/sec ----- Right CCA: 12.0 ----- Right ICA: 25.8 ----- Right ECA: 5.3 LEFT: Peak Systolic Velocity (PSV) cm/sec ----- Left CCA: 60.1 ----- Left ICA: 82.3 ----- Left ECA: 171.2 ICA/CCA ratio: 1.4 LEFT: End Diastole cm/sec ----- Left CCA: 13.0 ----- Left ICA: 18.6 ----- Left ECA: 5.7 VERTEBRALS (direction of flow): Right Vertebral: Antegrade Left Vertebral: Antegrade Rhythm: Normal CUSTOMS OPENER VERIFIER PACKER NOTES: Plaque bilateral bifurcations. increased velocities bilateral ECA's Moderate to severe plaque bilateral carotid bulb redemonstrated on grayscale images. No increased britney ocity in either internal carotid artery seen. IMPRESSION: [id number] atherosclerotic changes bilaterally redemonstrated without hemodynami ron significant stenosis in either internal carotid artery. Criteria for Assigning % of Stenosis / Diameter reduction (Estimation based on the indirect measurements of the internal carotid artery velocities (ICA PSV). 1. Normal (no stenosis)=ICA PSV < 125 cm/s: ratio < 2.0: ICA EDV<40 cm/s. 2. Less than 50% stenosis=ICA PSV < 125 cm/s: ratio < 2.0: ICA EDV<40 cm/s. 3. 50 to 69% stenosis=ICA PSV of 125 to 230 cm/s: ration 2.0 ? 4.0: ICA EDV 40-100 cm/s. 4. Greater than 70% stenosis to near occlusion= ICA PSV > 230 cm/s: ratio > 4.0: ICA EDV > 100 cm/s. 5. Near occlusion= ICA PSV velocities may be low or undetectable: variable ratio and ICA EDV. 6. Total occlusion=unable to detect flow.
--- NOTE | 2022-01-16 14:59 | CDI ---
Documentation Clarification Form Date: 01/16/2022 02:22:16 PM From: Gifty Mendoza RN, CCDS Admit Date: 01/13/2022 02:02:00 PM Patient Name: Jessica Perez Visit Number: [id number] Discharge Date: ATTENTION: The Clinical Documentation Specialists (CDI) and [facility] Coding Staff appreciate your assistance in clarifying documentation. Please respond to the clarification below the line at the bottom and electronically sign. The CDI & [facility] Coding staff will review the response and follow-up if needed. Please note: Queries are made part of the Legal Health Record. If you have any questions, please contact the author of this message via ITS. Dr. Ayala Delgado Conflicting documentation has been found in the medical record. As attending physician, please provide clarification. 01/13 H/P and subsequent progress notes: Acute on chronic systolic CHF with ejection fraction 45 % 01/14 Cardiology consult and subsequent progress notes: Acute on chronic diastolic heart failure EF 45 % History/Risk Factors: Heart Failure, Atrial fibrillation, Diabetes, Clinical Indicators: 77-year-old female present with shortness. Chest x-ray suggests congestive heart failure 11/30/2021 ECHO EF 45 % with moderate to severely increased left ventricular wall thickness as well as moderate aortic stenosis 01/13 BNP 01/[address] depressions Leads V3 to V6 concerning for ischemic changes. 01/13 186/91 89 22 88 % non-rebreather Treatment: Monitor/Telemetry unit Lasix 40 MG IV Q 12 -01/14 then 40 M IV q 12 ASA 325 PO Daily Lopressor 50 MG PO BID, Norvasc 5 MG PO Daily, Lipitor 80 MG PO HS Please clarify which diagnosis is most appropriate: [ ] Acute on Chronic Diastolic Heart Failure EF 45 % [ ] Acute on Chronic Systolic Heart Failure EF 45 % [ ] Other (please specify) [ ] Unable to determine (Template Last Revised: April 2020) Acute on Chronic Diastolic and systolic Heart Failure EF 45 % MTDD
[2022-01-16 16:33] LABS: Glucose,Whole Blood 260 mg/dL (70-110)
[2022-01-16] MEDS: HEPARIN SOD,PORK IN 0.45% NACL 25,000 UNIT in 0.45% NACL 1 250ML.BAG IV SCH ×2 (17:13→17:17)
[2022-01-16 19:20] LABS: Chol/HDL Ratio 5.76 Ratio; LDL Cholesterol,Calculated 64.4 mg/dL (0.0-131.0)
[2022-01-16 19:25] LABS: Hepatitis A Antibody IgM Nonreactive (Nonreactive); Hepatitis B Core IgM Nonreactive (Nonreactive); Hepatitis B Surface Antigen Nonreactive (Nonreactive); Hepatitis C IgG Antibody Nonreactive (Nonreactive)
[2022-01-16 20:13] LABS: Glucose,Whole Blood 230 mg/dL (70-110)
[2022-01-16] MEDS: MUPIROCIN 2% OINT 22 GM TUBE NASAL SCH (20:35)
[2022-01-16] MEDS: ATORVASTATIN 80 MG TAB PO SCH (20:35)
--- NOTE | 2022-01-16 22:05 | CT ---
EXAMINATION TYPE: CT Panorex CT DLP: 365.1 mGycm, Automated exposure control for dose reduction was used. DATE OF EXAM: 01/16/2022 6:16 PM COMPARISON: None. CLINICAL INDICATION:Female, 77 years old with history of pre cardiothoracic surgery; TECHNIQUE: Multiple unenhanced axial CT images were obtained of the facial bones soft tissue and bone windows. Coronal, axial reformatted images were also provided in soft tissue and bone windows and s ubmitted for interpretation. Special Panorex imaging was performed on a separate workstation. FINDINGS: There is no evidence of fracture, subluxation, dislocation, or significant soft tissue swelling. The temporal-mandibular joints appear symmetric. Secretions are seen within the sphenoid sinus on the rig ht. The right lens is absent. The the globes are otherwise intact. Atherosclerosis of the carotid bif urcations bilaterally. Atherosclerosis of the intracranial carotid arteries. Visualized portions of t he brain are grossly unremarkable. There is periodontal and odontal disease involving both the upper and lower teeth most pronounced in the upper teeth. Multiple fillings are noted with streak artifact which limits evaluation. Periapical lucencies noted in the lower left lower central incisor, left lower second molar, bilateral upper la teral incisor's as well as the upper cuspids. IMPRESSION: 1. CT Panorex for pre-cardiothoracic surgery planning. 2. Periodontal and odontal disease as described above.
[2022-01-17 06:04] LABS: Glucose,Whole Blood 184 mg/dL (70-110)
[2022-01-17] MEDS: INSULIN ASPART (NovoLOG) 100 UNIT/ML VIAL SQ SCH ×4 (06:24→20:42)
[2022-01-17] MEDS: GLIMEPIRIDE 2 MG TAB PO SCH (06:24)
[2022-01-17 08:50] LABS: Basophils # (A) 0.1 k/uL (0-0.2); Basophils % (A) 1 %; Eosinophils # (A) 0.2 k/uL (0-0.7); Eosinophils % (A) 3 %; HCT 40.4 % (34.0-46.0); HGB 13.2 gm/dL (11.4-16.0); Hypochromasia Slight; Lymphocytes # (A) 1.1 k/uL (1.0-4.8); Lymphocytes % (A) 16 %; MCH 29.1 pg (25.0-35.0); MCHC 32.6 g/dL (31.0-37.0); MCV 89.4 fL (80.0-100.0); Mean Platelet Volume 8.9; Monocytes # (A) 0.5 k/uL (0-1.0); Monocytes % (A) 6 %; Neutrophils # (A) 5.2 k/uL (1.3-7.7); Neutrophils % (A) 72 %; Platelet Count 172 k/uL (150-450); Poikilocytosis Slight; RBC 4.52 m/uL (3.80-5.40); RDW 15.4 % (11.5-15.5); WBC 7.2 k/uL (3.8-10.6)
[2022-01-17] MEDS: amLODIPine 5 MG TAB PO SCH (08:51)
[2022-01-17] MEDS: FUROSEMIDE 10 MG/ML 4 ML VIAL IV SCH ×2 (08:51→20:42)
[2022-01-17] MEDS: METOPROLOL TARTRATE 50 MG TAB PO SCH ×2 (08:51→20:42)
[2022-01-17] MEDS: FAMOTIDINE 20 MG TAB PO SCH (08:51)
[2022-01-17] MEDS: MUPIROCIN 2% OINT 22 GM TUBE NASAL SCH ×2 (08:51→20:42)
[2022-01-17 09:10] LABS: Calcium 9.2 mg/dL (8.4-10.2); Potassium 3.8 mmol/L (3.5-5.1)
--- NOTE | 2022-01-17 09:31 | CA ---
Transthoracic Echo Report Name: Jessica Perze Age: 77 Gender: F : 1945 Exam Date: 01/16/2022 14:12 Exam Location: [facility] Ht (in): 61 Wt (lb): 147 Ordering Physician: Pancho Rivera Attending/Referring Phys: Miguel SCHREIBER Real Estate Rep Lavonne Mobley, CODY Procedure CPT: Indications: HX moderate aortic valve stenosis Cardiac Hx: Technical Quality: Fair Contrast 1: Total Dose (mL): Contrast 2: Total Dose (mL): MEASUREMENTS (Male / Female) Normal Values 2D ECHO LV Diastolic Diameter PLAX 4.7 cm 4.2 - 5.9 / 3.9 - 5.3 cm LV Systolic Diameter PLAX 3.1 cm IVS Diastolic Thickness 1.1 cm 0.6 - 1.0 / 0.6 - 0.9 cm LVPW Diastolic Thickness 1.2 cm 0.6 - 1.0 / 0.6 - 0.9 cm LV Relative Wall Thickness 0.5 RV Internal Dim ED PLAX 3.0 cm LVOT Diameter 1.9 cm LA Systolic Diameter LX 4.2 cm 3.0 - 4.0 / 2.7 - 3.8 cm LV Diastolic Volume MOD BP 71.7 cm??? 67 - 155 / 56 - 104 cm??? LV Systolic Volume MOD BP 46.0 cm??? 22 - 58 / 19 - 49 cm??? LV Ejection Fraction MOD BP 35.8 % >= 55 % LV Diastolic Volume MOD 4C 76.2 cm??? LV Systolic Volume MOD 4C 50.7 cm??? LV Ejection Fraction MOD 4C 33.5 % LV Diastolic Length 4C 6.6 cm LV Systolic Length 4C 6.3 cm LV Diastolic Volume MOD 2C 63.4 cm??? LV Systolic Volume MOD 2C 42.8 cm??? LV Ejection Fraction MOD 2C 32.5 % LV Diastolic Length 2C 5.7 cm LV Systolic Length 2C 5.9 cm LA Volume 50.6 cm??? 18 - 58 / 22 - 52 cm??? M-MODE Aortic Root Diameter MM 2.8 cm MV E Point Septal Separation 0.7 cm DOPPLER AV Peak Velocity 314.5 cm/s AV Peak Gradient 39.6 mmHg AV Mean Velocity 225.7 cm/s AV Mean Gradient 22.5 mmHg AV Velocity Time Integral 73.6 cm LVOT Peak Velocity 107.1 cm/s LVOT Peak Gradient 4.6 mmHg AV Area Cont Eq pk 0.9 cm??? MV Area PHT 4.2 cm??? Mitral E Point Velocity 88.5 cm/s Mitral A Point Velocity 33.5 cm/s Mitral E to A Ratio 2.6 MV Deceleration Time 181.2 ms MV E' Velocity 4.7 cm/s Mitral E to MV E' Ratio 18.9 TR Peak Velocity 304.4 cm/s TR Peak Gradient 37.1 mmHg Right Ventricular Systolic Press 42.1 mmHg FINDINGS Left Ventricle Left ventricular ejection fraction is estimated at 50-55% . Left ventricular cavity size normal. Mildly increased septal wall thickness. Mildly increased posterior wall thickness. Fair left ventricular systolic function Right Ventricle Normal right ventricular size. Mild pulmonary hypertension. Right Atrium Normal right atrial size. Left Atrium Mildly increased left atrial diameter. Mildly increased left atrial area. No evidence for an atrial septal defect. Mitral Valve Mitral valve thickened. Mitral annular calcification. Mild mitral regurgitation. Aortic Valve Moderate aortic stenosis with a peak gradient of 40 mmHg and a mean gradient of 23 mmHg.Peak velocity is 315 cm/s on AOV with valve area of 1.1 cm. No aortic regurgitation. Tricuspid Valve Structurally normal tricuspid valve. Mild tricuspid regurgitation. Pulmonic Valve Structurally normal pulmonic valve. Mild pulmonic regurgitation. Pericardium Normal pericardium. No pericardial effusion. Aorta Normal size aortic root and proximal ascending aorta. CONCLUSIONS Normal LV size and systolic function with mild concentric LVH. There is evidence of aortic stenosis moderate no significant regurgitation. There is mitral annular calcification mild mitral and tricuspid insufficiency. No pericardial effusion. Mild pulmonary hypertension Previewed by: Dr. Dayne Johnson MD (Electronically Signed) Final Date: 17 January 2022 09:31
--- NOTE | 2022-01-17 10:19 | US ---
EXAMINATION TYPE: US vein mapping BILAT DATE OF EXAM: 01/16/2022 2:09 PM COMPARISON: NONE CLINICAL HISTORY: PreOp Cardiac Surgery. pre op cardiac surgery SIDE PERFORMED: bilateral TECHNIQUE: Lower extremity saphenous vein is examined and measured utilizing real time linear array sonography. Patient History: DUPLEX FINDINGS: Greater Saphenous: Color flow seen Measurements in mm: Right Greater Saphenous: Groin: 5.1 x 5.6 mm High Thigh: 4.5 x 3.9 mm Mid Thigh: 3.3 x 2.9 mm Above Knee: 3.7 x 3.1 mm Knee: 3.2 x 2.8 mm Below Knee: 2.9 x 2.6 mm Mid Calf: 1.8 x 1.6 mm At Ankle: 2.3 x 2.0 mm Left Greater Saphenous: Groin: 5.9 x 5.1 mm High Thigh: 4.1 x 3.7 mm Mid Thigh: 4.1 x 3.1 mm Above Knee: 3.6 x 2.7 mm Knee: 4.4 x 3.3 mm Below Knee: 2.8 x 2.3 mm Mid Calf: 2.3 x 1.9 mm At Ankle: 2.0 x 1.9 mm IMPRESSION: 1. Bilateral GSV measurements listed above. 2. Performing surgeon to determine viability as conduit.
--- NOTE | 2022-01-17 10:20 | US ---
EXAMINATION TYPE: Pre-Operative Non-Invasive Evaluation of the hand for Potential Radial Artery Daryl vaz, Measurements only DATE OF EXAM: 01/16/2022 2:09 PM CLINICAL HISTORY: Pre-Op Cardiac Surgery. Pre op cardiac surgery SIDE PERFORMED: left TECHNIQUE: Radial artery is measured utilizing real time linear array sonography. Dominant hand: Duplex Findings: Radial Artery: Color flow seen Measurements in mm, transverse view: Left Radial: Proximal: 2.9 x 2.7 mm Mid: 2.7 x 2.6 mm Distal: 3.0 x 2.6 mm IMPRESSION: 1. Left radial artery measurements listed above. 2. Performing surgeon to determine viability as conduit.
--- NOTE | 2022-01-17 10:24 | P.PN ---
Subjective This is a pleasant 77 years old female with past medical history of hypertension, hyperlipidemia, diabetes mellitus, coronary artery disease on dual and platelet therapy and chronic atrial fibrillation on Eliquis at home. Patient also recently had undergone right tumor removal from the right kidney for renal cancer (she follows up with Dr. Del Cid and Dr. Hernadez) Patient presents because of dyspnea and dry coughing for about one day duration with no chest pain but she has some chest heaviness on admission that since resolved with nitroglycerin drip. She denies any headache or dizziness or GI or urinary symptoms. She is not on home oxygen, she denies smoking alcohol or illicit drug Vitas looks stable, blood pressure slightly elevated. Patient is slightly tachypneic. patient has mild leukocytosis of 12.2, rest of CBC, BMP is unremarkable. Creatinine at baseline of 1.2. Which is at baseline Because elevated 318 AST 44 and ALT 53, which are mildly elevated Troponin is elevated 0.09. EKG showing sinus rhythm at [address]-T changes Chest x-ray: Correlate for CHF echocardiogram from 11/30/2021 showing ejection fraction 45% with moderate aortic stenosis Patient received IV Lasix and extra dose of aspirin and nitroglycerin and drip with manager of clinical consulted 01/14/2022 Patient states that she feels better, she is now back to baseline. She is not coughing much. stable including creatinine 1.1, liver enzymes are the same. Vitals are stable. patient on 2 L of oxygen via nasal cannula, she was not on home oxygenejection fraction 45% also patient has chronic A. fib and mildly elevated liver enzymes Continue with IV Lasix for tumor, twice daily and Eliquis home dose of 5 mg as well as aspirin and Plavix To resume Amaryl, shortness is not available in this hospital continue with insulin sliding scale 01/15/2022 Patient awake and alert, no dyspnea while sitting in bed. No chest pain. No other complaint. She still complaining of from her bump in her dorsum of the left hand times one month slightly tender with no signs of cellulitis. Orthopedic team were consulted and pending. Seo Assistant also on the case, her troponin was elevated last night and her Eliquis switched to heparin drip. Aspirin was discontinued by manager of clinical while keeping Plavix to lower the risk of bleeding. She is also on IV Lasix which could be switched to oral does sewn Possible discharge in 24-48 hours 01/16/2022 This morning she was asymptomatic with no chest pain or dyspnea Patient underwent cardiac cath, showing critical disease involving the distal left main and ostial left circumflex and LAD coronary arteries, given extensive coronary artery disease involvement cardiothoracic surgery consult is recommended by manager of clinical Hemodynamically stable, labs stable. Patient remains on Plavix and heparin drip 01/17/2022 Patient lying in bed with no chest pain or dyspnea. She still has heparin drip running, no signs of active bleeding. No other new complaints. Patient have significant aortic Stenosis which is moderate and significant coronary artery disease involving the left circulation, left main artery as well as left circumflex and LAD, I discussed the case with cardiothoracic surgery team today. They planned for revascularization and bypass surgery on Sunday as well as aortic valve repair/replacement, dentist also will evaluate the patient for this purpose preoperatively. Labs looks stable, creatinine 1.0. Glucose around 200, she was on Amaryl 2 mg at home which is resumed over GERD S is nonformulary in this facility therefore was started on Irene obtained today. Keep glucose monitoring. She still on Lasix 40 mg twice daily Review of systems CONSTITUTIONAL: No fever, no malaise, no fatigue. HEENT: No recent visual problems or hearing problems. Denied any sore throat. CARDIOVASCULAR: No orthopnea, PND, no palpitations, no syncope. PULMONARY: No shortness of breath, no cough, no hemoptysis. GASTROINTESTINAL: No diarrhea, no nausea, no vomiting, no abdominal pain. Normoactive bowel sounds. NEUROLOGICAL: No headaches, no weakness, no numbness. Active Medications Generic Name Dose Route Start Last Admin Trade Name Freq PRN Reason Stop Dose Admin Acetaminophen 650 mg 01/13/22 22:40 Acetaminophen Tab 325 Mg Tab PO Q6HR PRN Mild Pain or Fever > 100.5 Albuterol Sulfate 2.5 mg 01/13/22 22:40 Albuterol Nebulized 2.5 Mg/3 Ml INHALATION RT-Q6H PRN Shortness Of Breath Or Wheezing Alprazolam 0.25 mg 01/15/22 10:38 Alprazolam 0.25 Mg Tab PO Q6HR PRN Mild Anxiety Alprazolam 0.5 mg 01/15/22 10:38 Alprazolam 0.5 Mg Tab PO Q6HR PRN Moderate Anxiety Amlodipine Besylate 5 mg 01/14/22 09:00 01/17/22 08:51 Amlodipine 5 Mg Tab PO 5 mg DAILY JANETTE Administration Atorvastatin Calcium 80 mg 01/14/22 21:00 01/16/22 20:35 Atorvastatin 80 Mg Tab PO 80 mg HS JANETTE Administration Famotidine 20 mg 01/16/22 09:00 01/17/22 08:51 Famotidine 20 Mg Tab PO 20 mg DAILY JANETTE Administration Furosemide 40 mg 01/14/22 10:30 01/17/22 08:51 Furosemide 10 Mg/Ml 4 Ml Vial IV 40 mg Q12HR JANETTE Administration Glimepiride 2 mg 01/14/22 09:15 01/17/22 06:24 Glimepiride 2 Mg Tab PO 2 mg [id number] JANETTE Administration Heparin Sodium (Porcine) 0 unit 01/14/22 15:59 Heparin Sodium 1,000 Un/Ml (10ml Vl) IV PER PROTOCOL PRN Low PTT Protocol Heparin Sodium/Sodium Chloride 250 mls @ 8.1 mls/hr 01/14/22 16:00 01/16/22 17:17 25,000 unit/ Sodium Chloride IV 12 units/kg/hr .Q24H JANETTE 8.1 mls/hr Administration Protocol 12 UNITS/KG/HR Insulin Aspart 0 unit 01/14/22 12:30 01/17/22 06:24 Insulin Aspart (Novolog) 100 Unit/Ml Vial SQ 1 unit ACHS JANETTE Administration Protocol Linagliptin 5 mg 01/17/22 10:30 Linagliptin 5 Mg Tablet PO DAILY [facility] Metoprolol Tartrate 50 mg 01/14/22 09:00 01/17/22 08:51 Metoprolol Tartrate 50 Mg Tab PO 50 mg BID JANETTE Administration Miscellaneous Information 1 each 01/16/22 08:23 Rx Info: Iv Contrast Was Given 1 Each Misc MISCELLANE 01/18/22 08:23 DAILY PRN Per Protocol Mupirocin 1 applic 01/16/22 21:00 01/17/22 08:51 Mupirocin 2% Oint 22 Gm Tube NASAL 01/21/22 21:01 1 applic BID JANETTE Administration Nitroglycerin 0.4 mg 01/15/22 10:38 Nitroglycerin Sl Tabs 0.4 Mg Tab SUBLINGUAL Q5M PRN Chest Pain Objective - Vital Signs Vital signs: Vital Signs Temp 98.1 F 01/17/22 08:50 Pulse 58 L 01/17/22 08:50 Resp 16 01/17/22 08:50 BP 144/76 01/17/22 08:50 Pulse Ox 94 L 01/17/22 08:50 FiO2 40 01/14/22 05:35 Intake & Output 01/16/22 01/17/22 01/17/22 18:59 06:59 18:59 Intake Total 172.040 480 240 Output Total 850 Balance 172.040 -370 240 Weight 67.2 kg Intake: IV 50 Intake, IV Titration 122.040 Amount Heparin Sod,Pork in 0.45% 122.040 NaCl 25,000 unit In 0.45 % NaCl 1 250ml.bag @ 12 UNITS/KG/HR 8.1 mls/hr IV .Q24H JANETTE Rx#:[id number] Oral 0 480 240 Output: Urine 850 Other: Voiding Method Toilet Toilet # Voids 1 - Exam -GENERAL: The patient is alert and oriented x3, not in any acute distress.obese HEENT: Pupils are round and equally reacting to light. EOMI. No scleral icterus. No conjunctival pallor. Normocephalic, atraumatic. No pharyngeal erythema. No thyromegaly. -CARDIOVASCULAR: S1 and S2 present. No murmurs, rubs, . gallops. PULMONARY: Chest is clear to auscultation, no wheezing or crackles. ABDOMEN: Soft, nontender, nondistended, normoactive bowel sounds. No palpable organomegaly. MUSCULOSKELETAL: No joint swelling or deformity. EXTREMITIES: No cyanosis, clubbing, or pedal edema. NEUROLOGICAL: Gross neurological examination did not reveal any focal deficits. SKIN: No rashes. no petechiae.bilateral basal - Labs CBC & Chem 7: 01/17/22 07:50 01/17/22 07:50 Labs: Abnormal Lab Results - Last 24 Hours (Table) 01/16/22 01/16/22 01/16/22 Range/Units 09:58 09:58 09:58 APTT 96.0 H (22.0-30.0) sec Potassium 3.4 L (3.5-5.1) mmol/L BUN 37 H (7-17) mg/dL Creatinine 1.18 H (0.52-1.04) mg/dL Glucose 258 H (74-99) mg/dL POC Glucose (mg/dL) (70-110) mg/dL Hemoglobin A1c 7.1 H (0.0-6.0) % Delta Bilirubin 0.3 H (0.0-0.2) mg/dL Triglycerides 302.00 H (0.00-149.00) mg/dL VLDL Cholesterol, Calc 60.40 H (5.00-40.00) mg/dL HDL Cholesterol 26.20 L (40.00-60.00) mg/dL 01/16/22 01/16/22 01/16/22 Range/Units 11:47 16:31 20:12 APTT (22.0-30.0) sec Potassium (3.5-5.1) mmol/L BUN (7-17) mg/dL Creatinine (0.52-1.04) mg/dL Glucose (74-99) mg/dL POC Glucose (mg/dL) 196 H 260 H 230 H (70-110) mg/dL Hemoglobin A1c (0.0-6.0) % Delta Bilirubin (0.0-0.2) mg/dL Triglycerides (0.00-149.00) mg/dL VLDL Cholesterol, Calc (5.00-40.00) mg/dL HDL Cholesterol (40.00-60.00) mg/dL 01/16/22 01/17/22 01/17/22 Range/Units 22:35 06:02 07:50 APTT 46.0 H (22.0-30.0) sec Potassium (3.5-5.1) mmol/L BUN 35 H (7-17) mg/dL Creatinine 1.06 H (0.52-1.04) mg/dL Glucose 179 H (74-99) mg/dL POC Glucose (mg/dL) 184 H (70-110) mg/dL Hemoglobin A1c (0.0-6.0) % Delta Bilirubin (0.0-0.2) mg/dL Triglycerides (0.00-149.00) mg/dL VLDL Cholesterol, Calc (5.00-40.00) mg/dL HDL Cholesterol (40.00-60.00) mg/dL 01/17/22 Range/Units 07:50 APTT 57.4 H (22.0-30.0) sec Potassium (3.5-5.1) mmol/L BUN (7-17) mg/dL Creatinine (0.52-1.04) mg/dL Glucose (74-99) mg/dL POC Glucose (mg/dL) (70-110) mg/dL Hemoglobin A1c (0.0-6.0) % Delta Bilirubin (0.0-0.2) mg/dL Triglycerides (0.00-149.00) mg/dL VLDL Cholesterol, Calc (5.00-40.00) mg/dL HDL Cholesterol (40.00-60.00) mg/dL Microbiology - Last 24 Hours (Table) 01/16/22 11:27 Nasal Screen MRSA/MSSA - Preliminary Nasal Swab Assessment and Plan Assessment: Acute and chronic diastolic and systolic CHF with ejection fraction 45% Elevated troponin, cardiac cath showing critical disease involving the left distal main coronary artery as well as left circumflex and LAD, plan for cardiothoracic surgery Moderate aortic stenosis left hand bump 1 month, orthopedic team recommended outpatient follow-up Hypertension Hyperlipidemia Type 2 diabetes mellitus Paroxysmal atrial fibrillation History of coronary artery disease status post PCI History of renal cancer status post recent right tumor removal from the right kidney,, nephrectomy Elevated troponin Chronically Mildly elevated liver enzymes Plan: This is a pleasant 77 years old female who presents with CHF exacerbation Consult cardiothoracic surgery team for coronary artery disease Continue with heparin drip and Plavix. Discontinue aspirin per cardiology's recommendation Continue with IV Lasix and a fluid restriction Monitor input and output and creatinine continue with insulin sliding scale, Amaryl and limited lifting continue monitoring glucose Cardiology consult Orthopedic consult, follow-up outpatient for her hydration Labs and medication were reviewed.. Continue same treatment. Continue with symptomatic treatment. Resume home medication. Monitor labs and vitals. DVT and GI prophylaxis. Further recommendations as per clinical course of the patient DVT prophylaxis: heparin GI Prophylaxis: Pepcid PT/OT: Deferred Prognosis is guarded
--- NOTE | 2022-01-17 11:04 | P.PN ---
Subjective Progress Note Date: 01/17/22 Principal diagnosis: This is a 77-year-old female patient who follows with Dr. Haritha Villatoro on an outpatient basis for her primary care service and Dr. Nieto for her cardiology care. She has a past medical history significant for coronary artery disease with history of stent placement to her proximal left circumflex coronary artery, and proximal left anterior descending coronary artery, history of hypertension, hyperlipidemia, acute on chronic diastolic congestive heart failure with an ejection fraction of 45%, diabetes mellitus type 2, paroxysmal atrial fibrillation on Eliquis for anticoagulation on an outpatient basis, history of non-ST elevated myocardial infarction, renal insufficiency with a baseline creatinine of 1.2-1.3, status post removal of right renal mass with 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 The patient reports on 01/13/2022 after eating breakfast she was cleaning dishes and developed an acute onset of shortness of breath with some chest heaviness. She denies any complaints of fever, chills, diaphoresis, chest pain, lightheadedness, cough, diarrhea, constipation, headache, palpitations, presyncope or syncope. Subsequently, due to the shortness of breath and chest heaviness she called 911. She presented to the emergency department here at [facility] via EMS with the above mentioned symptoms. On admission a 12-lead EKG was completed which showed normal sinus rhythm with left ventricular hypertrophy and STT abnormality with a heart rate of 88 BPM. Initial laboratory results showed a WBC count of 12.2, hemoglobin 14.2, hematocrit 43.3, platelets 152, PT 10.9, INR 1.0, PTT 24.8, sodium 138, potassium 3.8, BUN 32, creatinine 1.20, glucose 318, plastic venous lactic acid 2.7, calcium 9.3, magnesium 1.8, AST 44, ALT 53, and alkaline phosphatase 130. The patient also had elevated serial troponins as high as 3.020 and was trending down to 2.690 ruling her in for a non-ST elevation myocardial infarction. The patient recently underwent a transthoracic 2-D echocardiogram completed on which showed her left ventricle to be moderately increased septal wall thickness, severely increased posterior wall thickness, a left ventricular ejection fraction estimated at 45%, mild mitral valve regurgitation, moderate aortic valve stenosis with a peak gradient of 36 mmHg and a mean gradient of 21 mmHg, no pericardial effusion and a normal size aortic root and proximal ascending aorta. Cardiology was consulted due to her presenting symptoms, history of coronary artery disease with previous stent placements, and elevated troponins. The patient was subsequently taken for a selective right and left coronary angiogram, left heart catheterization and FFR of the right coronary art alfonso today which demonstrated her distal left main to be hazy with a thrombolytic lesion appeared to be in the range of at least 60% and involving the ostial left circumflex and ostial left anterior descending coronary artery, it also demonstrated what appeared to be a thrombotic lesion to her ostial left circumflex coronary artery in the range of 99.9%, mild disease to her first and second obtuse marginal coronary artery branches, a patent stent to her left anterior descending coronary artery, a 99.9% stenosis to her ostial left anterior descending coronary artery from the lesion in the left main, a 50% stenosis to her mid left anterior descending coronary artery, and her right coronary artery has an intermediate lesion of 60-70% after the bifurcation of the acute marginal branch, for further evaluation an IFR was completed by Dr. Nieto and was shown to be ischemic at 0.89. Subsequently, due to the above- mentioned findings a consult was placed to Dr. Juan Mcdonald from cardiothoracic surgery for further evaluation and treatment recommendations. The patient was seen and examined in follow-up today 01/17/2022 at her bedside on the cardiac stepdown unit. Currently she is sitting up in bed, is awake, alert, oriented 3 and is in no acute apparent distress. Denies any complaints of shortness of breath or further chest heaviness or chest pain at this time. Oxygen saturations are 99% on room air and she is achieving 2000 mL on her incentive spirometry. Patient underwent a bedside FEV1 yesterday which showed her predicted value of 98% with a base volume of 1.80 L. A carotid duplex was also completed as part of her preoperative workup which showed moderate to severe atherosclerotic changes bilaterally without any hemodynamically significant stenosis in either internal carotid artery. Her hemoglobin A1c was 7.1%, and her laboratory results this morning showed a WBC count of 7.2, hemoglobin 13.2, hematocrit 40.4, platelets 172, sodium 138, potassium 3.8, BUN 35, creatinine 1.06, glucose 179 and calcium 9.2. A CT Panorex was completed yesterday which demonstrated periodontal and odontoma disease, dental consult is pending. Preoperative teaching has been reinforced with the patient. She remains hemodynamically stable and is currently on inotropic pressor support. Her Plavix was discontinued yesterday 01/16/2022. She remains on aspirin and statin and beta tito for optimized medical management. Heparin drip is infusing per protocol. No new concerns. Objective - Vital Signs Vital signs: Vital Signs Temp 98.1 F 01/17/22 08:50 Pulse 58 L 01/17/22 08:50 Resp 16 01/17/22 08:50 BP 144/76 01/17/22 08:50 Pulse Ox 94 L 01/17/22 08:50 FiO2 40 01/14/22 05:35 Intake & Output 01/16/22 01/17/22 01/17/22 18:59 06:59 18:59 Intake Total 172.040 480 240 Output Total 850 Balance 172.040 -370 240 Weight 67.2 kg Intake: IV 50 Intake, IV Titration 122.040 Amount Heparin Sod,Pork in 0.45% 122.040 NaCl 25,000 unit In 0.45 % NaCl 1 250ml.bag @ 12 UNITS/KG/HR 8.1 mls/hr IV .Q24H [facility] Rx#:[id number] Oral 0 480 240 Output: Urine 850 Other: Voiding Method Toilet Toilet # Voids 1 - Exam CONSTITUTIONAL: Sitting up in bed on the cardiac stepdown unit, appears comfortable, cooperative, no apparent acute distress. HEENT: Neck is supple, no JVD, no lymphadenopathy. RESPIRATORY: Lungs sounds essentially clear throughout, diminished to his bilateral bases. Respirations are symmetrical and nonlabored. Currently on room air with oxygen saturations 99%. Able to achieve 2000 mL on her incentive spirometry. Strong cough. CARDIOVASCULAR: Regular rhythm and bradycardic rate. S1 and S2 present, negative for S3, or gallop. Soft systolic murmur heard best to her right sternal border. No calf pain or tenderness noted. Heart Knee-high sequential compression devices in place to his bilateral lower extremities. No edema present. GASTROINTESTINAL: Abdomen soft, nontender, nondistended. Active bowel sounds present 4 quadrants. Tolerating diet. Passing flatus. No guarding or rigidity. GENITOURINARY: Continues to void. Urine output 850 mL in the last 8 hours INTEGUMENTARY: Skin is warm and dry with no evidence of clubbing or cyanosis. NEUROLOGIC: Cranial nerves II through XII intact. No focal deficits. MUSKULOSKELETAL: Able to move all extremities, strength equal bilaterally. PSYCHIATRIC: Alert and oriented to person place and time, appropriate affect, intact judgment and insight. - Allied health notes Allied health notes reviewed: nursing - Labs CBC & Chem 7: 01/17/22 07:50 01/17/22 07:50 Labs: Abnormal Lab Results - Last 24 Hours (Table) 01/16/22 01/16/22 01/16/22 Range/Units 09:58 09:58 09:58 APTT 96.0 H (22.0-30.0) sec Potassium 3.4 L (3.5-5.1) mmol/L BUN 37 H (7-17) mg/dL Creatinine 1.18 H (0.52-1.04) mg/dL Glucose 258 H (74-99) mg/dL POC Glucose (mg/dL) (70-110) mg/dL Hemoglobin A1c 7.1 H (0.0-6.0) % Delta Bilirubin 0.3 H (0.0-0.2) mg/dL Triglycerides 302.00 H (0.00-149.00) mg/dL VLDL Cholesterol, Calc 60.40 H (5.00-40.00) mg/dL HDL Cholesterol 26.20 L (40.00-60.00) mg/dL 01/16/22 01/16/22 01/16/22 Range/Units 11:47 16:31 20:12 APTT (22.0-30.0) sec Potassium (3.5-5.1) mmol/L BUN (7-17) mg/dL Creatinine (0.52-1.04) mg/dL Glucose (74-99) mg/dL POC Glucose (mg/dL) 196 H 260 H 230 H (70-110) mg/dL Hemoglobin A1c (0.0-6.0) % Delta Bilirubin (0.0-0.2) mg/dL Triglycerides (0.00-149.00) mg/dL VLDL Cholesterol, Calc (5.00-40.00) mg/dL HDL Cholesterol (40.00-60.00) mg/dL 01/16/22 01/17/22 01/17/22 Range/Units 22:35 06:02 07:50 APTT 46.0 H (22.0-30.0) sec Potassium (3.5-5.1) mmol/L BUN 35 H (7-17) mg/dL Creatinine 1.06 H (0.52-1.04) mg/dL Glucose 179 H (74-99) mg/dL POC Glucose (mg/dL) 184 H (70-110) mg/dL Hemoglobin A1c (0.0-6.0) % Delta Bilirubin (0.0-0.2) mg/dL Triglycerides (0.00-149.00) mg/dL VLDL Cholesterol, Calc (5.00-40.00) mg/dL HDL Cholesterol (40.00-60.00) mg/dL 01/17/22 Range/Units 07:50 APTT 57.4 H (22.0-30.0) sec Potassium (3.5-5.1) mmol/L BUN (7-17) mg/dL Creatinine (0.52-1.04) mg/dL Glucose (74-99) mg/dL POC Glucose (mg/dL) (70-110) mg/dL Hemoglobin A1c (0.0-6.0) % Delta Bilirubin (0.0-0.2) mg/dL Triglycerides (0.00-149.00) mg/dL VLDL Cholesterol, Calc (5.00-40.00) mg/dL HDL Cholesterol (40.00-60.00) mg/dL Microbiology - Last 24 Hours (Table) 01/16/22 11:27 Nasal Screen MRSA/MSSA - Preliminary Nasal Swab - Imaging and Cardiology CT scan - chest: report reviewed, image reviewed Carotid duplex results reviewed. Vein mapping results and radial artery mapping results reviewed. Assessment and Plan Assessment: 1. Triple-vessel coronary artery disease, history of previous stent placement to her left circumflex and left anterior descending coronary arteries in April 2021, Plavix discontinued 01/16/2022 2. Non-ST elevated myocardial infarction this admission 3. Acute on chronic diastolic heart failure, ejection fraction 45% on most recent transthoracic 2-D echocardiogram from November 2021 4. Dyspnea, likely secondary to above 5. Paroxysmal atrial fibrillation, on Eliqius for anticoagulation on an outpatient basis with her last dose taken on 01/13/2022, currently in normal sinus rhythm 6. History of hypertension 7. Hyperlipidemia 8. Diabetes mellitus type 2 9. History of renal insufficiency with a baseline creatinine of 1.2-1.3 10. History of clear cell renal cell carcinoma with right sided renal mass removed in November 2021 11. Family history of coronary artery disease Plan: 1. Continue to maximize medical management with aspirin, statin and beta tito. 2. Dental clearance is pending. 3. Continue to hold Plavix, we will need to hold Plavix for 5-7 days before proceeding with cardiac surgery. 4. Transthoracic 2-D echocardiogram results remain pending. 5. Preoperative teaching has been reinforced with the patient and with the patient's daughter. 6. An STS risk score has been calculated and discussed with the patient. 7. A 5 m walk test was completed, Time 1: 2.35 seconds, Time 2: 2.08 seconds, Time 3: 2.72 seconds. 8. Timing on surgery to follow once dental clearance has been obtained and once all of her preoperative testing has been obtained. 9. Encourage use of her incentive spirometry 10 times every hour while awake. 10. Heparin drip management per cardiology recommendations. 11. More recommendations to follow based on patient's clinical course. Time with Patient: Greater than 30
[2022-01-17 11:39] LABS: Glucose,Whole Blood 208 mg/dL (70-110)
[2022-01-17] MEDS: LINAGLIPTIN 5 MG TABLET PO SCH (12:12)
--- NOTE | 2022-01-17 14:14 | P.CNPUL ---
History of Present Illness Consult date: 01/17/22 Requesting physician: Max E Sheet Reason for consult: other (preoperative pulmonary clearance) Chief complaint: shortness of breath History of present illness: this is a 77-year-old female, known history of hypertension, dyslipidemia, diabetes type 2, coronary artery disease and previous stenting, congestive heart failure, paroxysmal atrial fibrillation, patient was recently seen in my office and I clear the patient for nephrectomy as she was found to have a renal mass consistent with renal cell carcinoma. Patient underwent uneventful surgery, however on previous admission on 11/29/21, patient had non-ST elevation myocardial infarction and elevated troponin. She was also found to have low ejection fraction of 45%. As well as moderate aortic stenosis.patient was seen by cardiology on this admission 01/13/22,underwent cardiac catheterization, and she was found to havetriple-vessel coronary artery disease, her other medical problems included a non-ST elevation myocardial infarction on this admission, and paroxysmal atrial fibrillation, patient was seen bycardiothoracic surgery on consultation, and the patient will be undergoing by cardiac revascularization, early next week, patient had a recent PFT in my office, and it was unremarkable, she had no previous history of COPD, and I am clearing her for surgery as scheduled.CT of the chest done on this admission showed nonspecific pulmonary nodules which will need to be monitored on outpatient basis. Review of Systems CONSTITUTIONAL: Denies fever or chills. CARDIOVASCULAR: as noted in HPI. RESPIRATORY: Denies cough. as noted in HPI. GASTROINTESTINAL: Denies abdominal pain, diarrhea, constipation, nausea or vomiting. MUSCULOSKELETAL: Denies myalgias. NEUROLOGIC: Denies numbness, tingling or weakness. ENDOCRINE: Denies fatigue, weight change, polydipsia or polyurina. GENITOURINARY: Denies burning, hematuria or urgency with micturation. HEMATOLOGIC: Denies history of anemia or bleeding. 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 mass right kidney, hx migraines, macular degeneration,currently on antibiotic for UTI Last Myocardial Infarction Date:: April 2021 History of Any Multi-Drug Resistant Organisms: None Reported Past Surgical History: Appendectomy, Back Surgery, Breast Surgery, Cholecystectomy, Heart Catheterization With Stent, Hysterectomy, Orthopedic Surgery Additional Past Surgical History / Comment(s): "NECK LAMINECTOMY". LEFT BREAST BIOPSY, 2 cardiac stents, left shoulder rotator cuff, rt cataract, removal of right renal mass in November 2021 for clear cell renal carcinoma Past Anesthesia/Blood Transfusion Reactions: No Reported Reaction Date of Last Stent Placement:: April 2021 Past Psychological History: Anxiety Smoking Status: Never smoker Past Alcohol Use History: None Reported Past Drug Use History: None Reported - Past Family History Mother Additional Family Medical History / Comment(s): "HEART PROBLEMS". BRAIN ANEURYSM. Father Family Medical History: Myocardial Infarction ([place]) Sister(s) Family Medical History: Coronary Artery Disease (CAD) Additional Family Medical History / Comment(s): Her twin sister had myocardial revascularization surgery at age 70. Medications and Allergies Home Medications Medication Instructions Recorded Confirmed Type Aspirin 81 mg PO DAILY 30 Days #30 05/11/21 01/13/22 Rx Clopidogrel [Plavix] 75 mg PO DAILY 06/22/21 01/13/22 History Nitroglycerin Sl Tabs [Nitrostat] 0.4 mg SUBLINGUAL Q5M PRN 06/22/21 01/13/22 History Atorvastatin [Lipitor] 80 mg PO HS 11/22/21 01/13/22 History Healty Eyes 1 tab PO DAILY 11/22/21 01/13/22 History Apixaban [Eliquis] 5 mg PO BID #180 tab 12/12/21 01/13/22 Rx Acetaminophen Tab [Tylenol] 650 mg PO Q6HR PRN tab 12/13/21 01/13/22 Rx Empagliflozin [Jardiance] 25 mg PO DAILY #30 tablet 12/13/21 01/13/22 Rx Furosemide [Lasix] 40 mg PO DAILY #30 tab 12/13/21 01/13/22 Rx Metoprolol Tartrate [Lopressor] 50 mg PO BID #60 tab 12/13/21 01/13/22 Rx amLODIPine [Norvasc] 5 mg PO DAILY #30 tab 12/13/21 01/13/22 Rx Albuterol Inhaler [Ventolin Hfa 1 - 2 puff INHALATION RT-Q6H PRN 01/13/22 01/13/22 History Inhaler] Doxycycline Hyclate 100 mg PO BID 01/13/22 01/13/22 History Glimepiride [Amaryl] 2 mg PO [id number] 01/13/22 01/13/22 History Allergies Allergy/AdvReac Type Severity Reaction Status Date / Time enalaprilat [From Vasotec] Allergy Anaphylaxis Verified 01/13/22 13:09 Physical Exam Vitals: Vital Signs Temp Pulse Pulse Resp BP Pulse Ox 01/17/22 12:10 98.3 F 56 L 16 131/69 95 01/17/22 08:50 98.1 F 58 L 16 144/76 94 L 01/17/22 03:36 97.7 F 52 L 16 112/66 99 01/17/22 00:00 97.8 F 52 L 17 143/73 98 01/16/22 20:00 97.4 F L 58 L 20 161/76 99 01/16/22 16:00 97.9 F 57 L 18 135/73 96 Intake and Output 01/16/22 01/17/22 01/17/22 22:59 06:59 14:59 Intake Total 242.835 240 358 Output Total 0 850 Balance 242.835 -610 358 Intake: Intake, IV Titration 2.835 Amount Heparin Sod,Pork in 0.45% 2.835 NaCl 25,000 unit In 0.45 % NaCl 1 250ml.bag @ 12 UNITS/KG/HR 8.1 mls/hr IV .Q24H [facility] Rx#:[id number] Oral 240 240 358 Output: Urine 0 850 Other: Voiding Method Toilet Toilet Toilet Weight 67.2 kg Physical Exam: Revealed a 77-year-old female in no distress. HEENT:[Neck is supple.] [No neck masses.] [No thyromegaly.] [No JVD.] Chest: [Clear throughout, no crackles, no rhonchi, no wheezes.] Cardiac Exam: [Normal S1 and S2, no S3 gallop, 2/6 systolic murmur throughout the precordium. Abdomen: [Soft, nontender, no megaly, no rebound, no guarding, normal bowel sounds.] Extremities: [No clubbing, no edema, no cyanosis.] Neurological Exam: [No focal neurologic deficit.]alert oriented 3. Psychiatric: Normal mood affect and normal mental status examination. Skin: No rashes. Musculoskeletal: No deformities and no limitation in range of motion. Results - Laboratory Findings CBC and BMP: 01/17/22 07:50 01/17/22 07:50 PT/INR, D-dimer PT 11.9 sec (9.0-12.0) 01/16/22 09:58 INR 1.1 (<1.2) 01/16/22 09:58 Abnormal lab findings: Abnormal Labs 01/13/22 01/13/22 01/13/22 11:22 11:22 11:22 WBC 12.2 H RDW 15.7 H Neutrophils # 10.6 H Lymphocytes # 0.9 L APTT Potassium BUN 32 H Creatinine 1.20 H Glucose 318 H POC Glucose (mg/dL) Hemoglobin A1c Plasma Lactic Acid Missael 2.7 H* Delta Bilirubin AST 44 H ALT 53 H Alkaline Phosphatase 130 H Troponin I Triglycerides VLDL Cholesterol, Calc HDL Cholesterol Procalcitonin Urine Glucose (UA) 01/13/22 01/13/22 01/14/22 11:22 18:15 05:53 WBC RDW Neutrophils # Lymphocytes # APTT Potassium BUN Creatinine Glucose POC Glucose (mg/dL) 122 H Hemoglobin A1c Plasma Lactic Acid Missael Delta Bilirubin AST ALT Alkaline Phosphatase Troponin I 0.093 H* Triglycerides VLDL Cholesterol, Calc HDL Cholesterol Procalcitonin Urine Glucose (UA) 4+ H 01/14/22 01/14/22 01/14/22 07:46 07:46 07:46 WBC RDW 15.6 H Neutrophils # Lymphocytes # 0.9 L APTT Potassium 3.2 L BUN 33 H Creatinine 1.13 H Glucose 226 H POC Glucose (mg/dL) Hemoglobin A1c Plasma Lactic Acid Missael Delta Bilirubin 0.3 H AST 55 H ALT 41 H Alkaline Phosphatase Troponin I Triglycerides VLDL Cholesterol, Calc HDL Cholesterol Procalcitonin 0.27 H Urine Glucose (UA) 01/14/22 01/14/22 01/14/22 11:53 14:26 16:57 WBC RDW Neutrophils # Lymphocytes # APTT Potassium BUN Creatinine Glucose POC Glucose (mg/dL) 192 H 152 H Hemoglobin A1c Plasma Lactic Acid Missael Delta Bilirubin AST ALT Alkaline Phosphatase Troponin I 3.020 H* Triglycerides VLDL Cholesterol, Calc HDL Cholesterol Procalcitonin Urine Glucose (UA) 01/14/22 01/14/22 01/14/22 18:01 19:56 22:14 WBC RDW Neutrophils # Lymphocytes # APTT 60.3 H Potassium BUN Creatinine Glucose POC Glucose (mg/dL) 177 H Hemoglobin A1c Plasma Lactic Acid Missael Delta Bilirubin AST ALT Alkaline Phosphatase Troponin I 2.690 H* Triglycerides VLDL Cholesterol, Calc HDL Cholesterol Procalcitonin Urine Glucose (UA) 01/15/22 01/15/22 01/15/22 06:04 06:20 06:20 WBC RDW Neutrophils # Lymphocytes # APTT 53.9 H Potassium BUN 36 H Creatinine 1.14 H Glucose 122 H POC Glucose (mg/dL) 121 H Hemoglobin A1c Plasma Lactic Acid Missael Delta Bilirubin AST 60 H ALT 36 H Alkaline Phosphatase Troponin I Triglycerides VLDL Cholesterol, Calc HDL Cholesterol Procalcitonin Urine Glucose (UA) 01/15/22 01/15/22 01/15/22 11:36 16:36 20:12 WBC RDW Neutrophils # Lymphocytes # APTT Potassium BUN Creatinine Glucose POC Glucose (mg/dL) 166 H 135 H 142 H Hemoglobin A1c Plasma Lactic Acid Missael Delta Bilirubin AST ALT Alkaline Phosphatase Troponin I Triglycerides VLDL Cholesterol, Calc HDL Cholesterol Procalcitonin Urine Glucose (UA) 01/16/22 01/16/22 01/16/22 06:10 08:40 09:58 WBC RDW Neutrophils # Lymphocytes # APTT 96.0 H Potassium BUN Creatinine Glucose POC Glucose (mg/dL) 163 H 147 H Hemoglobin A1c Plasma Lactic Acid Missael Delta Bilirubin AST ALT Alkaline Phosphatase Troponin I Triglycerides VLDL Cholesterol, Calc HDL Cholesterol Procalcitonin Urine Glucose (UA) 01/16/22 01/16/22 01/16/22 09:58 09:58 11:47 WBC RDW Neutrophils # Lymphocytes # APTT Potassium 3.4 L BUN 37 H Creatinine 1.18 H Glucose 258 H POC Glucose (mg/dL) 196 H Hemoglobin A1c 7.1 H Plasma Lactic Acid Missael Delta Bilirubin 0.3 H AST ALT Alkaline Phosphatase Troponin I Triglycerides 302.00 H VLDL Cholesterol, Calc 60.40 H HDL Cholesterol 26.20 L Procalcitonin Urine Glucose (UA) 01/16/22 01/16/22 01/16/22 16:31 20:12 22:35 WBC RDW Neutrophils # Lymphocytes # APTT 46.0 H Potassium BUN Creatinine Glucose POC Glucose (mg/dL) 260 H 230 H Hemoglobin A1c Plasma Lactic Acid Missael Delta Bilirubin AST ALT Alkaline Phosphatase Troponin I Triglycerides VLDL Cholesterol, Calc HDL Cholesterol Procalcitonin Urine Glucose (UA) 01/17/22 01/17/22 01/17/22 06:02 07:50 07:50 WBC RDW Neutrophils # Lymphocytes # APTT 57.4 H Potassium BUN 35 H Creatinine 1.06 H Glucose 179 H POC Glucose (mg/dL) 184 H Hemoglobin A1c Plasma Lactic Acid Missael Delta Bilirubin AST ALT Alkaline Phosphatase Troponin I Triglycerides VLDL Cholesterol, Calc HDL Cholesterol Procalcitonin Urine Glucose (UA) 01/17/22 11:37 WBC RDW Neutrophils # Lymphocytes # APTT Potassium BUN Creatinine Glucose POC Glucose (mg/dL) 208 H Hemoglobin A1c Plasma Lactic Acid Missael Delta Bilirubin AST ALT Alkaline Phosphatase Troponin I Triglycerides VLDL Cholesterol, Calc HDL Cholesterol Procalcitonin Urine Glucose (UA) - Diagnostic Findings CT scan - chest: image reviewed (as noted in HPI.) Assessment and Plan Assessment: impression: Triple-vessel coronary artery disease, patient is scheduled for myocardial revascularization. Acute on chronic diastolic congestive heart failure and possibly some systolic component with ejection fraction of 45% Coronary artery disease with previous history of PCI. Paroxysmal atrial fibrillation, presently in sinus rhythm. Benign essential hypertension. Type 2 diabetes. history of renal cell carcinoma, recent history of right-sided nephrectomy November 20. Strong family history of coronary artery disease. recommendation: Continue maximal medical therapy including aspirin statins and beta blockers Incentive spirometry and instructed to use. Continue to hold Plavix. Will clear for surgery as scheduled from the pulmonary perspective as long as his cleared by cardiology. Will follow postoperatively. Time with Patient: Greater than 30
[2022-01-17 16:47] LABS: Glucose,Whole Blood 194 mg/dL (70-110)
[2022-01-17 20:06] LABS: Glucose,Whole Blood 198 mg/dL (70-110)
[2022-01-17] MEDS: ATORVASTATIN 80 MG TAB PO SCH (20:42)
--- NOTE | 2022-01-17 23:21 | PN ---
PROGRESS NOTE HISTORY OF PRESENT ILLNESS: Jessica is a 77-year-old lady who is admitted to hospital with unstable angina, underwent cardiac catheterization and was found to have severe coronary artery disease with critical distal left main circ and LAD lesion and an intermediate lesion within the right coronary artery. She is to undergo surgery and tentatively this is going to be done on Sunday. The patient is currently free of symptoms. MEDICATIONS: She is on, 1. Norvasc. 2. Lipitor. 3. Lopressor. 4. Intravenous heparin. PHYSICAL EXAMINATION: GENERAL: Comfortable at rest. VITAL SIGNS: Stable. NECK: There is no jugular venous distention. CHEST: Reveals good air entry bilaterally. HEART: Reveals first and second heart sounds. No gallop. ABDOMEN: Soft. EXTREMITIES: Did not reveal any edema. Peripheral pulses are felt. ASSESSMENT AND PLAN: Severe 3-vessel coronary artery disease. The patient is awaiting bypass surgery, currently free of symptoms. We will continue current medications. MMODL / SHEAN: [id number] /
[2022-01-18 05:55] LABS: Glucose,Whole Blood 216 mg/dL (70-110)
[2022-01-18] MEDS: GLIMEPIRIDE 2 MG TAB PO SCH (06:15)
[2022-01-18] MEDS: INSULIN ASPART (NovoLOG) 100 UNIT/ML VIAL SQ SCH ×4 (06:15→20:09)
[2022-01-18] MEDS: LINAGLIPTIN 5 MG TABLET PO SCH (08:06)
[2022-01-18] MEDS: FAMOTIDINE 20 MG TAB PO SCH (08:06)
[2022-01-18] MEDS: METOPROLOL TARTRATE 50 MG TAB PO SCH ×2 (08:06→20:10)
[2022-01-18] MEDS: amLODIPine 5 MG TAB PO SCH (08:06)
[2022-01-18] MEDS: FUROSEMIDE 10 MG/ML 4 ML VIAL IV SCH ×2 (08:06→20:10)
[2022-01-18] MEDS: MUPIROCIN 2% OINT 22 GM TUBE NASAL SCH ×2 (08:07→20:10)
[2022-01-18] MEDS ORDERED: ASPIRIN 325 MG TAB PO SCH (09:00)
[2022-01-18 09:16] LABS: Calcium 9.5 mg/dL (8.4-10.2)
--- NOTE | 2022-01-18 09:23 | P.PN ---
Subjective Progress Note Date: 01/18/22 Principal diagnosis: Triple-vessel coronary artery disease, non-STEMI this admission, acute and chronic diastolic heart failure this admission. 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 Shook. Denies any chest pain or shortness of breath currently. No edema present. Remains on IV heparin. Currently in sinus rhythm to sinus bradycardia, hemodynamically stable. Remains on room air with oxygen saturation in the low to mid 90s. Dr. Shook did discuss open heart surgery the patient which would consist of coronary artery bypass surgery along with aortic valve replacement, timing to be determined but will be completed soon. STS risk score was calculated at 11.6% risk for mortality making patient high risk. Patient is waiting dental clearance which likely will be completed today. Despite her high risk nature and recent cessation of Plavix we need to proceed with surgery due to the critical nature of her coronary disease. This was discussed with the patient and she is in agreement. Objective - Vital Signs Vital signs: Vital Signs Temp 97.7 F 01/18/22 08:04 Pulse 56 L 01/18/22 08:20 Resp 16 01/18/22 08:04 BP 171/84 01/18/22 08:04 Pulse Ox 98 01/18/22 08:04 FiO2 40 01/14/22 05:35 Intake & Output 01/17/22 01/18/22 01/18/22 18:59 06:59 18:59 Intake Total 476 240 480 Output Total 850 775 Balance -374 535 480 Weight 67 kg Intake: Oral 476 240 480 Output: Urine 850 775 Other: Voiding Method Toilet Toilet Toilet - Exam CONSTITUTIONAL: Appears comfortable, cooperative, no acute distress RESPIRATORY: Lungs sounds clear, slightly diminished to the left base. Respirations even, nonlabored. Currently on room air with oxygen saturation 93% . Able to achieve 1500 mL on incentive spirometry. Strong cough. CARDIOVASCULAR: S1, S2 present. Slow but regular rate and rhythm, sinus bradycardia on telemetry. Palpable peripheral pulses bilaterally. No edema present. No calf pain or tenderness noted. GASTROINTESTINAL: Abdomen soft, nontender, nondistended. Active bowel sounds present 4 quadrants. Tolerating diet. GENITOURINARY: Continues to void clear, yellow urine. Output 1625 mL the last 24 hours INTEGUMENTARY: Skin is warm and dry with evidence of good perfusion. NEUROLOGIC: Cranial nerves II through XII intact MUSKULOSKELETAL: Able to move all extremities, strength equal bilaterally, gait normal PSYCHIATRIC: Alert and oriented to person place and time, appropriate affect, intact judgment and insight - Allied health notes Allied health notes reviewed: nursing - Labs CBC & Chem 7: 01/17/22 07:50 01/17/22 07:50 Labs: Abnormal Lab Results - Last 24 Hours (Table) 01/17/22 01/17/22 01/17/22 Range/Units 07:50 11:37 16:45 BUN 35 H (7-17) mg/dL Creatinine 1.06 H (0.52-1.04) mg/dL Glucose 179 H (74-99) mg/dL POC Glucose (mg/dL) 208 H 194 H (70-110) mg/dL 01/17/22 01/18/22 Range/Units 20:04 05:53 BUN (7-17) mg/dL Creatinine (0.52-1.04) mg/dL Glucose (74-99) mg/dL POC Glucose (mg/dL) 198 H 216 H (70-110) mg/dL Microbiology - Last 24 Hours (Table) 01/16/22 11:27 Nasal Screen MRSA/MSSA - Final Nasal Swab Assessment and Plan Assessment: 1. Triple-vessel coronary artery disease, non-STEMI this admission 2. Acute on chronic diastolic heart failure this admission, EF 50-55% on transthoracic echocardiogram 3. Shortness of breath on admission, secondary to above 4. History of CAD and myocardial infarction in April 2021 with stent placement to left circumflex and left anterior descending coronary arteries, last dose of Plavix 01/16/2022 5. Paroxysmal atrial fibrillation on Eliqius for anticoagulation outpatient, last dose 01/13/2022 6. Hypertension 7. Hyperlipidemia, treated, cholesterol 151, LDL 64.4, triglycerides 302 8. Diabetes mellitus type 2, preoperative hemoglobin A1c 7.1% 9. Renal insufficiency, baseline creatinine is 1.2-1.3 10. Clear cell renal cell carcinoma with right sided renal mass removed in November 2021 11. Peripheral arterial disease, CALI 0.94 on the right, 0.93 on the left 12. Family history of coronary artery disease 13. Never smoker, preoperative FEV1 98% of predicted Plan: 1. Continue to maximize medical management with aspirin, statin and beta tito, IV heparin 2. Dental clearance is pending, likely to be completed today, discussed with Dr. Hayes 3. Continue to hold Plavix, Eliquis 4. Increase activity, ambulate as tolerated 5. Preoperative teaching reinforced with patient 6. Encourage use of her incentive spirometry 10 times every hour while awake 8. Timing of surgery to follow 9. More recommendations to follow based on patient's clinical course.
--- NOTE | 2022-01-18 10:39 | P.PN ---
Subjective This is a pleasant 77 years old female with past medical history of hypertension, hyperlipidemia, diabetes mellitus, coronary artery disease on dual and platelet therapy and chronic atrial fibrillation on Eliquis at home. Patient also recently had undergone right tumor removal from the right kidney for renal cancer (she follows up with Dr. Del Cid and Dr. Hernadez) Patient presents because of dyspnea and dry coughing for about one day duration with no chest pain but she has some chest heaviness on admission that since resolved with nitroglycerin drip. She denies any headache or dizziness or GI or urinary symptoms. She is not on home oxygen, she denies smoking alcohol or illicit drug Vitas looks stable, blood pressure slightly elevated. Patient is slightly tachypneic. patient has mild leukocytosis of 12.2, rest of CBC, BMP is unremarkable. Creatinine at baseline of 1.2. Which is at baseline Because elevated 318 AST 44 and ALT 53, which are mildly elevated Troponin is elevated 0.09. EKG showing sinus rhythm at [address]-T changes Chest x-ray: Correlate for CHF echocardiogram from 11/30/2021 showing ejection fraction 45% with moderate aortic stenosis Patient received IV Lasix and extra dose of aspirin and nitroglycerin and drip with oil well directional surveyor consulted 01/14/2022 Patient states that she feels better, she is now back to baseline. She is not coughing much. stable including creatinine 1.1, liver enzymes are the same. Vitals are stable. patient on 2 L of oxygen via nasal cannula, she was not on home oxygenejection fraction 45% also patient has chronic A. fib and mildly elevated liver enzymes Continue with IV Lasix for tumor, twice daily and Eliquis home dose of 5 mg as well as aspirin and Plavix To resume Amaryl, shortness is not available in this hospital continue with insulin sliding scale 01/15/2022 Patient awake and alert, no dyspnea while sitting in bed. No chest pain. No other complaint. She still complaining of from her bump in her dorsum of the left hand times one month slightly tender with no signs of cellulitis. Orthopedic team were consulted and pending. High Worker also on the case, her troponin was elevated last night and her Eliquis switched to heparin drip. Aspirin was discontinued by oil well directional surveyor while keeping Plavix to lower the risk of bleeding. She is also on IV Lasix which could be switched to oral does sewn Possible discharge in 24-48 hours 01/16/2022 This morning she was asymptomatic with no chest pain or dyspnea Patient underwent cardiac cath, showing critical disease involving the distal left main and ostial left circumflex and LAD coronary arteries, given extensive coronary artery disease involvement cardiothoracic surgery consult is recommended by oil well directional surveyor Hemodynamically stable, labs stable. Patient remains on Plavix and heparin drip 01/17/2022 Patient lying in bed with no chest pain or dyspnea. She still has heparin drip running, no signs of active bleeding. No other new complaints. Patient have significant aortic Stenosis which is moderate and significant coronary artery disease involving the left circulation, left main artery as well as left circumflex and LAD, I discussed the case with cardiothoracic surgery team today. They planned for revascularization and bypass surgery on Sunday as well as aortic valve repair/replacement, dentist also will evaluate the patient for this purpose preoperatively. Labs looks stable, creatinine 1.0. Glucose around 200, she was on Amaryl 2 mg at home which is resumed over GERD S is nonformulary in this facility therefore was started on Irene obtained today. Keep glucose monitoring. She still on Lasix 40 mg twice daily 01/18/2022 No new complaints, no chest pain or dyspnea. She remains on heparin drip Plan for bypass surgery on Sunday with aortic valve repair Review of systems CONSTITUTIONAL: No fever, no malaise, no fatigue. HEENT: No recent visual problems or hearing problems. Denied any sore throat. CARDIOVASCULAR: No orthopnea, PND, no palpitations, no syncope. PULMONARY: No shortness of breath, no cough, no hemoptysis. GASTROINTESTINAL: No diarrhea, no nausea, no vomiting, no abdominal pain. Normoactive bowel sounds. NEUROLOGICAL: No headaches, no weakness, no numbness. Active Medications Generic Name Dose Route Start Last Admin Trade Name Freq PRN Reason Stop Dose Admin Acetaminophen 650 mg 01/13/22 22:40 Acetaminophen Tab 325 Mg Tab PO Q6HR PRN Mild Pain or Fever > 100.5 Albuterol Sulfate 2.5 mg 01/13/22 22:40 Albuterol Nebulized 2.5 Mg/3 Ml INHALATION RT-Q6H PRN Shortness Of Breath Or Wheezing Alprazolam 0.25 mg 01/15/22 10:38 Alprazolam 0.25 Mg Tab PO Q6HR PRN Mild Anxiety Alprazolam 0.5 mg 01/15/22 10:38 Alprazolam 0.5 Mg Tab PO Q6HR PRN Moderate Anxiety Amlodipine Besylate 5 mg 01/14/22 09:00 01/17/22 08:51 Amlodipine 5 Mg Tab PO 5 mg DAILY JANETTE Administration Atorvastatin Calcium 80 mg 01/14/22 21:00 01/16/22 20:35 Atorvastatin 80 Mg Tab PO 80 mg HS JANETTE Administration Famotidine 20 mg 01/16/22 09:00 01/17/22 08:51 Famotidine 20 Mg Tab PO 20 mg DAILY JANETTE Administration Furosemide 40 mg 01/14/22 10:30 01/17/22 08:51 Furosemide 10 Mg/Ml 4 Ml Vial IV 40 mg Q12HR JANETTE Administration Glimepiride 2 mg 01/14/22 09:15 01/17/22 06:24 Glimepiride 2 Mg Tab PO 2 mg [id number] JANETTE Administration Heparin Sodium (Porcine) 0 unit 01/14/22 15:59 Heparin Sodium 1,000 Un/Ml (10ml Vl) IV PER PROTOCOL PRN Low PTT Protocol Heparin Sodium/Sodium Chloride 250 mls @ 8.1 mls/hr 01/14/22 16:00 01/16/22 17:17 25,000 unit/ Sodium Chloride IV 12 units/kg/hr .Q24H JANETTE 8.1 mls/hr Administration Protocol 12 UNITS/KG/HR Insulin Aspart 0 unit 01/14/22 12:30 01/17/22 06:24 Insulin Aspart (Novolog) 100 Unit/Ml Vial SQ 1 unit ACHS JANETTE Administration Protocol Linagliptin 5 mg 01/17/22 10:30 Linagliptin 5 Mg Tablet PO DAILY JANETTE Metoprolol Tartrate 50 mg 01/14/22 09:00 01/17/22 08:51 Metoprolol Tartrate 50 Mg Tab PO 50 mg BID JANETTE Administration Miscellaneous Information 1 each 01/16/22 08:23 Rx Info: Iv Contrast Was Given 1 Each Misc MISCELLANE 01/18/22 08:23 DAILY PRN Per Protocol Mupirocin 1 applic 01/16/22 21:00 01/17/22 08:51 Mupirocin 2% Oint 22 Gm Tube NASAL 01/21/22 21:01 1 applic BID JANETTE Administration Nitroglycerin 0.4 mg 01/15/22 10:38 Nitroglycerin Sl Tabs 0.4 Mg Tab SUBLINGUAL Q5M PRN Chest Pain Objective - Vital Signs Vital signs: Vital Signs Temp 97.7 F 01/18/22 08:04 Pulse 56 L 01/18/22 08:20 Resp 16 01/18/22 08:04 BP 171/84 01/18/22 08:04 Pulse Ox 98 01/18/22 08:04 FiO2 40 01/14/22 05:35 Intake & Output 01/17/22 01/18/22 01/18/22 18:59 06:59 18:59 Intake Total 476 240 480 Output Total 850 775 Balance -374 -535 480 Weight 67 kg Intake: Oral 476 240 480 Output: Urine 850 775 Other: Voiding Method Toilet Toilet Toilet - Exam -GENERAL: The patient is alert and oriented x3, not in any acute distress.obese HEENT: Pupils are round and equally reacting to light. EOMI. No scleral icterus. No conjunctival pallor. Normocephalic, atraumatic. No pharyngeal erythema. No thyromegaly. -CARDIOVASCULAR: S1 and S2 present. No murmurs, rubs, . gallops. PULMONARY: Chest is clear to auscultation, no wheezing or crackles. ABDOMEN: Soft, nontender, nondistended, normoactive bowel sounds. No palpable organomegaly. MUSCULOSKELETAL: No joint swelling or deformity. EXTREMITIES: No cyanosis, clubbing, or pedal edema. NEUROLOGICAL: Gross neurological examination did not reveal any focal deficits. SKIN: No rashes. no petechiae.bilateral basal - Labs CBC & Chem 7: 01/17/22 07:50 01/18/22 08:17 Labs: Abnormal Lab Results - Last 24 Hours (Table) 01/17/22 01/17/22 01/17/22 Range/Units 11:37 16:45 20:04 APTT (22.0-30.0) sec BUN (7-17) mg/dL Creatinine (0.52-1.04) mg/dL Glucose (74-99) mg/dL POC Glucose (mg/dL) 208 H 194 H 198 H (70-110) mg/dL 01/18/22 01/18/22 01/18/22 Range/Units 05:53 08:17 08:17 APTT 62.5 H (22.0-30.0) sec BUN 33 H (7-17) mg/dL Creatinine 1.05 H (0.52-1.04) mg/dL Glucose 244 H (74-99) mg/dL POC Glucose (mg/dL) 216 H (70-110) mg/dL Microbiology - Last 24 Hours (Table) 01/16/22 11:27 Nasal Screen MRSA/MSSA - Final Nasal Swab Assessment and Plan Assessment: Acute and chronic diastolic and systolic CHF with ejection fraction 45% Elevated troponin, cardiac cath showing critical disease involving the left distal main coronary artery as well as left circumflex and LAD, plan for cardiothoracic surgery Moderate aortic stenosis left hand bump 1 month, orthopedic team recommended outpatient follow-up Hypertension Hyperlipidemia Type 2 diabetes mellitus Paroxysmal atrial fibrillation History of coronary artery disease status post PCI History of renal cancer status post recent right tumor removal from the right kidney,, nephrectomy Elevated troponin Chronically Mildly elevated liver enzymes Plan: This is a pleasant 77 years old female who presents with CHF exacerbation Consult cardiothoracic surgery team for coronary artery disease Continue with heparin drip and Plavix. Discontinue aspirin per cardiology's recommendation Continue with IV Lasix and a fluid restriction Monitor input and output and creatinine continue with insulin sliding scale, Amaryl and limited lifting continue monitoring glucose Cardiology consult Orthopedic consult, follow-up outpatient for her hydration Labs and medication were reviewed.. Continue same treatment. Continue with symptomatic treatment. Resume home medication. Monitor labs and vitals. DVT and GI prophylaxis. Further recommendations as per clinical course of the patient DVT prophylaxis: heparin GI Prophylaxis: Pepcid PT/OT: Deferred Prognosis is guarded
[2022-01-18 11:49] LABS: Glucose,Whole Blood 155 mg/dL (70-110)
--- NOTE | 2022-01-18 12:52 | P.PN ---
Subjective Progress Note Date: 01/18/22 Principal diagnosis: Triple-vessel coronary artery disease this is a 77-year-old female, known history of hypertension, dyslipidemia, diabetes type 2, coronary artery disease and previous stenting, congestive heart failure, paroxysmal atrial fibrillation, patient was recently seen in my office and I clear the patient for nephrectomy as she was found to have a renal mass consistent with renal cell carcinoma. Patient underwent uneventful surgery, however on previous admission on 11/29/21, patient had non-ST elevation myocardial infarction and elevated troponin. She was also found to have low ejection fraction of 45%. As well as moderate aortic stenosis.patient was seen by cardiology on this admission 01/13/22,underwent cardiac catheterization, and she was found to havetriple-vessel coronary artery disease, her other medical problems included a non-ST elevation myocardial infarction on this admission, and paroxysmal atrial fibrillation, patient was seen bycardiothoracic surgery on consultation, and the patient will be undergoing by cardiac revascularization, early next week, patient had a recent PFT in my office, and it was unremarkable, she had no previous history of COPD, and I am clearing her for surgery as scheduled.CT of the chest done on this admission showed nonspecific pulmonary nodules which will need to be monitored on outpatient basis. Reevaluated today on 01/18/22, patient is doing well, undergoing preoperative workup for potential CABG. No active pulmonary symptoms, no cough no wheezing no shortness of breath, I saw the patient yesterday and cleared for surgery as scheduled. Objective - Vital Signs Vital signs: Vital Signs Temp 97.7 F 01/18/22 08:04 Pulse 53 L 01/18/22 11:59 Resp 16 01/18/22 08:04 BP 153/77 01/18/22 11:59 Pulse Ox 98 01/18/22 08:04 FiO2 40 01/14/22 05:35 Intake & Output 01/17/22 01/18/22 01/18/22 18:59 06:59 18:59 Intake Total 476 240 480 Output Total 850 775 800 Balance -374 -535 -320 Weight 67 kg 67 kg Intake: Oral 476 240 480 Output: Urine 850 775 800 Other: Voiding Method Toilet Toilet Toilet # Voids 2 - Exam Physical Exam: Revealed a 77-year-old female in no distress. HEENT:[Neck is supple.] [No neck masses.] [No thyromegaly.] [No JVD.] Chest: [Clear throughout, no crackles, no rhonchi, no wheezes.] Cardiac Exam: [Normal S1 and S2, no S3 gallop, 2/6 systolic murmur throughout the precordium. Abdomen: [Soft, nontender, no megaly, no rebound, no guarding, normal bowel sounds.] Extremities: [No clubbing, no edema, no cyanosis.] Neurological Exam: [No focal neurologic deficit.]alert oriented 3. Psychiatric: Normal mood affect and normal mental status examination. Skin: No rashes. Musculoskeletal: No deformities and no limitation in range of motion. - Labs CBC & Chem 7: 01/17/22 07:50 01/18/22 08:17 Labs: Abnormal Lab Results - Last 24 Hours (Table) 01/17/22 01/17/22 01/18/22 Range/Units 16:45 20:04 05:53 APTT (22.0-30.0) sec BUN (7-17) mg/dL Creatinine (0.52-1.04) mg/dL Glucose (74-99) mg/dL POC Glucose (mg/dL) 194 H 198 H 216 H (70-110) mg/dL 01/18/22 01/18/22 01/18/22 Range/Units 08:17 08:17 11:47 APTT 62.5 H (22.0-30.0) sec BUN 33 H (7-17) mg/dL Creatinine 1.05 H (0.52-1.04) mg/dL Glucose 244 H (74-99) mg/dL POC Glucose (mg/dL) 155 H (70-110) mg/dL Microbiology - Last 24 Hours (Table) 01/16/22 11:27 Nasal Screen MRSA/MSSA - Final Nasal Swab Assessment and Plan Assessment: impression: Triple-vessel coronary artery disease, patient is scheduled for myocardial revascularization. Acute on chronic diastolic congestive heart failure and possibly some systolic c omponent with ejection fraction of 45% Coronary artery disease with previous history of PCI. Paroxysmal atrial fibrillation, presently in sinus rhythm. Benign essential hypertension. Type 2 diabetes. history of renal cell carcinoma, recent history of right-sided nephrectomy November 20. Strong family history of coronary artery disease. recommendation: Continue maximal medical therapy including aspirin statins and beta blockers Incentive spirometry and instructed to use. Continue to hold Plavix. Will follow postoperatively. Time with Patient: Less than 30
[2022-01-18] MEDS: ACETAMINOPHEN TAB 325 MG TAB PO PRN ×2 (13:20→20:22)
[2022-01-18] MEDS ORDERED: MD COMMUNICATION TO PHARMACY 1 EACH MISC PO ONE (13:38)
--- NOTE | 2022-01-18 14:47 | P.GSCN ---
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 mass right kidney, hx migraines, macular degeneration,currently on antibiotic for UTI Last Myocardial Infarction Date:: April 2021 History of Any Multi-Drug Resistant Organisms: None Reported Past Surgical History: Appendectomy, Back Surgery, Breast Surgery, Cholecystectomy, Heart Catheterization With Stent, Hysterectomy, Orthopedic Surgery Additional Past Surgical History / Comment(s): "NECK LAMINECTOMY". LEFT BREAST BIOPSY, 2 cardiac stents, left shoulder rotator cuff, rt cataract, removal of right renal mass in November 2021 for clear cell renal carcinoma Past Anesthesia/Blood Transfusion Reactions: No Reported Reaction Date of Last Stent Placement:: April 2021 Past Psychological History: Anxiety Smoking Status: Never smoker Past Alcohol Use History: None Reported Past Drug Use History: None Reported - Past Family History Mother Additional Family Medical History / Comment(s): "HEART PROBLEMS". BRAIN ANEURYSM. Father Family Medical History: Myocardial Infarction (DC) Sister(s) Family Medical History: Coronary Artery Disease (CAD) Additional Family Medical History / Comment(s): Her twin sister had myocardial revascularization surgery at age 70. Medications and Allergies Home Medications Medication Instructions Recorded Confirmed Type Aspirin 81 mg PO DAILY 30 Days #30 05/11/21 01/13/22 Rx Clopidogrel [Plavix] 75 mg PO DAILY 06/22/21 01/13/22 History Nitroglycerin Sl Tabs [Nitrostat] 0.4 mg SUBLINGUAL Q5M PRN 06/22/21 01/13/22 History Atorvastatin [Lipitor] 80 mg PO HS 11/22/21 01/13/22 History Healty Eyes 1 tab PO DAILY 11/22/21 01/13/22 History Apixaban [Eliquis] 5 mg PO BID #180 tab 12/12/21 01/13/22 Rx Acetaminophen Tab [Tylenol] 650 mg PO Q6HR PRN tab 12/13/21 01/13/22 Rx Empagliflozin [Jardiance] 25 mg PO DAILY #30 tablet 12/13/21 01/13/22 Rx Furosemide [Lasix] 40 mg PO DAILY #30 tab 12/13/21 01/13/22 Rx Metoprolol Tartrate [Lopressor] 50 mg PO BID #60 tab 12/13/21 01/13/22 Rx amLODIPine [Norvasc] 5 mg PO DAILY #30 tab 12/13/21 01/13/22 Rx Albuterol Inhaler [Ventolin Hfa 1 - 2 puff INHALATION RT-Q6H PRN 01/13/22 01/13/22 History Inhaler] Doxycycline Hyclate 100 mg PO BID 01/13/22 01/13/22 History Glimepiride [Amaryl] 2 mg PO [id number] 01/13/22 01/13/22 History Allergies Allergy/AdvReac Type Severity Reaction Status Date / Time enalaprilat [From Vasotec] Allergy Anaphylaxis Verified 01/13/22 13:09 Surgical - Exam Vital Signs Temp Pulse Resp BP Pulse Ox 97.2 F L 89 22 168/91 88 L 01/13/22 11:06 01/13/22 11:06 01/13/22 11:06 01/13/22 11:06 01/13/22 11:06 Clinical exam revealed multiple periodontally involved teeth. #24, #14 and #18 have have chronic perioapical periodontitis with gross radiographic evidence of infection and mobility requiring extractions. Tooth #13 has severe mobility and requires extraction as well. There are multiple teeth with deep caries and possible further periapical periodontal disease. Panoramic CT has distortion due to amalgam restorations making diagnosis difficult. Informed patient that she will need to follow up with her dentist following cardiac surgery. Results Procedures performed: -Limited Oral Evaluation Anesthetic: Citanest Plain local infiltration #13, 14, 24.(3 carpules) Left long buccal (1 carpule) and left FABBY-(1 carpule) Elevated using straight elevator and removed #13, 14 and #24 with rongeur. #18 removed with molar forcep. -#13-Simple extraction -#14-Simple extraction -#18-Simple extraction -#24-Simple extraction Informed patient that she has multiple teeth with deep caries that require further evaluation by a dentist with a comprehensive exam and radiographs. Tiana le understood and stated that she will be calling an office when she is cleared for dental treatment following cardiac surgery. Patient may have current further periapical infection that was not able to be diagnosed and treated prior to cardiac surgery due to distortion on the CT. If antibiotic is indicated as a preventative measure prior to surgery, then it is recommended due to possibility of further periapical disease. - Labs 01/17/22 07:50 01/18/22 08:17 Abnormal Lab Results - Last 24 Hours (Table) 01/17/22 01/17/22 01/18/22 Range/Units 16:45 20:04 05:53 APTT (22.0-30.0) sec BUN (7-17) mg/dL Creatinine (0.52-1.04) mg/dL Glucose (74-99) mg/dL POC Glucose (mg/dL) 194 H 198 H 216 H (70-110) mg/dL 01/18/22 01/18/22 01/18/22 Range/Units 08:17 08:17 11:47 APTT 62.5 H (22.0-30.0) sec BUN 33 H (7-17) mg/dL Creatinine 1.05 H (0.52-1.04) mg/dL Glucose 244 H (74-99) mg/dL POC Glucose (mg/dL) 155 H (70-110) mg/dL Microbiology - Last 24 Hours (Table) 01/16/22 11:27 Nasal Screen MRSA/MSSA - Final Nasal Swab Diabetes panel 01/18/22 Range/Units 08:17 Sodium 139 (137-145) mmol/L Potassium 4.0 (3.5-5.1) mmol/L Chloride 103 (98-107) mmol/L Carbon Dioxide 26 (22-30) mmol/L BUN 33 H (7-17) mg/dL Creatinine 1.05 H (0.52-1.04) mg/dL Glucose 244 H (74-99) mg/dL Calcium 9.5 (8.4-10.2) mg/dL Calcium panel 01/18/22 Range/Units 08:17 Calcium 9.5 (8.4-10.2) mg/dL Pituitary panel 01/18/22 Range/Units 08:17 Sodium 139 (137-145) mmol/L Potassium 4.0 (3.5-5.1) mmol/L Chloride 103 (98-107) mmol/L Carbon Dioxide 26 (22-30) mmol/L BUN 33 H (7-17) mg/dL Creatinine 1.05 H (0.52-1.04) mg/dL Glucose 244 H (74-99) mg/dL Calcium 9.5 (8.4-10.2) mg/dL Adrenal panel 01/18/22 Range/Units 08:17 Sodium 139 (137-145) mmol/L Potassium 4.0 (3.5-5.1) mmol/L Chloride 103 (98-107) mmol/L Carbon Dioxide 26 (22-30) mmol/L BUN 33 H (7-17) mg/dL Creatinine 1.05 H (0.52-1.04) mg/dL Glucose 244 H (74-99) mg/dL Calcium 9.5 (8.4-10.2) mg/dL
--- NOTE | 2022-01-18 15:05 | US ---
EXAMINATION TYPE: US arterial LE single level DATE OF EXAM: 01/16/2022 4:55 PM CLINICAL HISTORY: Ankle Brachial Index (CALI) . Pre op cardiac surgery. Right radial deferred due to r adial approach heart cath today. Right DP deferred, not audible enough. Unable to obtain toe pressure s due to restless legs . History of hypertension and hyperlipidemia. Doppler Waveforms: Right: Biphasic except at the dorsalis pedis Left: Monophasic to biphasic Ankle-Brachial Indices: Right: 0.94 Left: 0.93 IMPRESSION: Suboptimal study. Normal CALI values bilaterally. Cannot assess bilateral feet. Consider follow-up.
[2022-01-18] MEDS: HEPARIN SOD,PORK IN 0.45% NACL 25,000 UNIT in 0.45% NACL 1 250ML.BAG IV SCH (15:32)
[2022-01-18 15:44] LABS: Basophils # (A) 0.1 k/uL (0-0.2); Basophils % (A) 1 %; Eosinophils # (A) 0.4 k/uL (0-0.7); Eosinophils % (A) 4 %; HCT 40.5 % (34.0-46.0); HGB 13.6 gm/dL (11.4-16.0); Hypochromasia Slight; Lymphocytes # (A) 1.6 k/uL (1.0-4.8); Lymphocytes % (A) 18 %; MCH 29.7 pg (25.0-35.0); MCHC 33.6 g/dL (31.0-37.0); MCV 88.3 fL (80.0-100.0); Mean Platelet Volume 8.1; Monocytes # (A) 0.6 k/uL (0-1.0); Monocytes % (A) 7 %; Neutrophils # (A) 6.3 k/uL (1.3-7.7); Neutrophils % (A) 69 %; Platelet Count 173 k/uL (150-450); Poikilocytosis Slight; RBC 4.58 m/uL (3.80-5.40); RDW 15.1 % (11.5-15.5); WBC 9.1 k/uL (3.8-10.6)
[2022-01-18 16:00] LABS: Prothrombin Time 10.6 sec (9.0-12.0)
[2022-01-18 16:19] LABS: Albumin 4.4 g/dL (3.5-5.0); Calcium 10.2 mg/dL (8.4-10.2); Potassium 3.9 mmol/L (3.5-5.1); Total Bilirubin 0.7 mg/dL (0.2-1.3); Total Protein 7.1 g/dL (6.3-8.2)
[2022-01-18 16:38] LABS: Glucose,Whole Blood 106 mg/dL (70-110)
--- NOTE | 2022-01-18 17:06 | XR ---
EXAMINATION TYPE: XR chest 2V DATE OF EXAM: 01/18/2022 4:57 PM COMPARISON: Chest radiographs from 01/13/2022. TECHNIQUE: XR chest 2V Frontal and lateral views of the chest. CLINICAL INDICATION:Female, 77 years old with history of preop cardiac surgery; FINDINGS: Lungs/Pleura: Improved aeration of the lungs on today's exam. No significant airspace opacities are i dentified. There is no evidence of pleural effusion, focal consolidation, or pneumothorax. Pulmonary vascularity: Unremarkable. Heart/mediastinum: Cardiomediastinal silhouette is prominent in size. Musculoskeletal: No acute osseous pathology. IMPRESSION: Near complete resolution of prior airspace opacities seen on 01/13/2022.
[2022-01-18 19:59] LABS: Glucose,Whole Blood 257 mg/dL (70-110)
[2022-01-18] MEDS: ATORVASTATIN 80 MG TAB PO SCH (20:10)
--- NOTE | 2022-01-18 23:09 | PN ---
PROGRESS NOTE SUBJECTIVE: This is a 77-year-old lady who was admitted to hospital with unstable angina and underwent cardiac catheterization that revealed significant distal left main LAD and circ disease and is to undergo bypass surgery on Sunday. She is doing well and is free of symptoms. OBJECTIVE: GENERAL: Comfortable at rest. VITAL SIGNS: Stable. Blood pressure is elevated at 153/77. NECK: There is no jugular venous distention. Carotid upstroke is normal. There is no bruit. CHEST: Reveals good air entry bilaterally. HEART: Reveals first and second heart sounds. No gallop, no murmur. ABDOMEN: Soft. EXTREMITIES: Did not reveal any edema. Peripheral pulses are felt. LABORATORY DATA: Shows potassium of 4, creatinine of 1. ASSESSMENT: 1. Severe coronary artery disease including distal left main stenosis. 2. Hypertension. PLAN: Continue the IV heparin. Increase the dose of Norvasc to 10 mg daily for more optimal blood pressure control. MMODL / IJN: [id number] /
[2022-01-19] MEDS ORDERED: NITROGLYCERIN-D5W PMX 25 MG/250 ML BTL IV ONE (05:00)
[2022-01-19] MEDS ORDERED: CHLORHEXIDINE GLUCONATE 15 ML CUP MUCOUS MEM ONE (05:00)
[2022-01-19] MEDS ORDERED: ELECTROLYTE-A SOLUTION 1,000 ML with POTASSIUM CHLORIDE 40 MEQ, MAGNESIUM SULFATE 16 ME... IV SCH ×5 (05:00)
[2022-01-19] MEDS ORDERED: LACTATED RINGERS 1,000 ML IV SCH (05:00)
[2022-01-19] MEDS ORDERED: TRANEXAMIC ACID 2,000 MG in SODIUM CHLORIDE 0.9% 80 ML IV ONE (05:00)
[2022-01-19] MEDS ORDERED: HEPARIN SODIUM,PORCINE 5,000 UNIT in SODIUM CHLORIDE 0.9% 500 ML 500 ML IV ONE (05:00)
[2022-01-19] MEDS ORDERED: NOREPINEPHRINE 4 MG in SODIUM CHLORIDE 0.9% 250 ML IV SCH (05:00)
[2022-01-19] MEDS ORDERED: ASPIRIN 325 MG TAB PO ONE (05:00)
[2022-01-19] MEDS ORDERED: PHENYLEPHRINE 10 MG/ML VIAL IV ONE (05:00)
[2022-01-19] MEDS ORDERED: ALBUMIN HUMAN 5% 500 ML in EMPTY BAG 1 BAG IVPB ONE ×6 (05:00)
[2022-01-19] MEDS ORDERED: MANNITOL 25% 12.5 GM/50 ML VIAL IV ONE ×2 (05:00)
[2022-01-19] MEDS ORDERED: ELECTROLYTE-A SOLUTION 1,000 ML with POTASSIUM CHLORIDE 100 MEQ, MAGNESIUM SULFATE 16 M... IV SCH ×5 (05:00)
[2022-01-19] MEDS ORDERED: ceFAZolin 1,000 MG in SODIUM CHLORIDE 0.9% IRRIGATIO 1,000 ML IRRIGATION ONE (05:00)
[2022-01-19] MEDS ORDERED: METOPROLOL TARTRATE 12.5 MG TAB PO ONE (05:00)
[2022-01-19] MEDS ORDERED: CLEVIDIPINE BUTYRATE 25 MG in EMPTY BAG 1 BAG IV SCH ×2 (05:00→16:03)
[2022-01-19] MEDS ORDERED: DILTIAZEM 125 MG in SODIUM CHLORIDE 0.9% 100 ML IV SCH (05:00)
[2022-01-19] MEDS ORDERED: ALBUMIN HUMAN 25% 50 ML in EMPTY BAG 1 BAG IVPB ONE (05:00)
[2022-01-19] MEDS ORDERED: ATORVASTATIN 10 MG TAB PO ONE (05:00)
[2022-01-19] MEDS ORDERED: NITROGLYCERIN-D5W PMX 50 MG in DEXTROSE/WATER 1 250ML.BAG IV SCH ×2 (05:00→16:03)
[2022-01-19] MEDS ORDERED: PHENYLEPHRINE 40 MG in SODIUM CHLORIDE 0.9% 250 ML IV ONE (05:00)
[2022-01-19] MEDS ORDERED: HEPARIN SODIUM 1,000 UN/ML (10ML VL) IV ONE (05:00)
[2022-01-19] MEDS ORDERED: PROTAMINE SULFATE 250 MG in EMPTY BAG 1 BAG IV ONE (05:00)
[2022-01-19] MEDS ORDERED: MAGNESIUM SULFATE 16.24 MEQ in EMPTY SYRINGE 1 SYR IV ONE (05:00)
[2022-01-19] MEDS ORDERED: CALCIUM CHLORIDE 100 MG/ML 10 ML SYRINGE IVP ONE (05:00)
[2022-01-19] MEDS ORDERED: PROTAMINE SULFATE 10 MG/ML 25 ML VIAL IV ONE ×2 (05:00→08:01)
[2022-01-19] MEDS ORDERED: PAPAVERINE 360 MG in SODIUM CHLORIDE 0.9% 90 ML IV ONE ×2 (05:00→10:16)
[2022-01-19] MEDS ORDERED: INSULIN REGULAR 100 UNIT in SODIUM CHLORIDE 0.9% 100 ML IV SCH (05:00)
[2022-01-19 05:38] LABS: Glucose,Whole Blood 137 mg/dL (70-110)
[2022-01-19] MEDS: FAMOTIDINE 20 MG TAB PO SCH (05:39)
[2022-01-19] MEDS: amLODIPine 5 MG TAB PO SCH (05:39)
[2022-01-19] MEDS ORDERED: IV FLUID CONTINUATION 400 ML IV ONE (06:28)
[2022-01-19] MEDS ORDERED: INSULIN REGULAR 100 UNIT/ML VIAL (IV) ONE (08:01)
[2022-01-19] MEDS ORDERED: CALCIUM CHLORIDE 100 MG/ML 10 ML SYRINGE ONE (08:01)
[2022-01-19] MEDS ORDERED: NITROGLYCERIN-D5W PMX 50 MG/250 ML BOTTLE IV ONE (08:01)
[2022-01-19] MEDS ORDERED: fentaNYL (PF) 50 MCG/ML 50 ML VIAL ONE (08:01)
[2022-01-19] MEDS ORDERED: LIDOCAINE 2% SYG (PF) 100 MG/5 ML ONE (08:01)
[2022-01-19] MEDS ORDERED: MIDAZOLAM HCL 10 MG/10 ML VIAL ONE (08:01)
[2022-01-19] MEDS ORDERED: LIDOCAINE 2% INJ 20 MG/ML (2 ML VIAL) ONE (08:01)
[2022-01-19] MEDS ORDERED: ceFAZolin 1,000 MG VIAL ONE (08:01)
[2022-01-19] MEDS ORDERED: PHENYLEPHRINE-0.9% NACL SYG 1,000 MCG/10 ML SYRINGE ONE (08:01)
[2022-01-19] MEDS ORDERED: VECURONIUM 10 MG VIAL IV ONE (08:01)
[2022-01-19] MEDS ORDERED: ePHEDrine 50 MG/ML 1 ML VIAL ONE (08:01)
[2022-01-19] MEDS ORDERED: SODIUM CHLORIDE 0.9% IRRIG 1,000 ML BTL IRRIGATION ONE (08:01)
[2022-01-19] MEDS ORDERED: TRANEXAMIC ACID IN NACL,ISO-OS 1,000 MG/100 ML BAG ONE (08:01)
[2022-01-19] MEDS ORDERED: HEPARIN SODIUM,PORCINE 10,000 UNIT/ML 1 ML VIAL ONE ×2 (08:01)
[2022-01-19] MEDS ORDERED: MAGNESIUM SULFATE 4 MEQ/ML 10ML VIAL ONE (08:01)
[2022-01-19] MEDS ORDERED: SODIUM CHLORIDE 0.9% 100 ML BAG ONE (08:01)
[2022-01-19] MEDS ORDERED: ELECTROLYTE-R (PH 7.4) 1,000 ML IV.SOLN IV ONE (08:01)
[2022-01-19] MEDS ORDERED: PROPOFOL 10 MG/ML 20 ML VIAL IV ONE (08:01)
[2022-01-19 08:40] LABS: ABG Base Excess 4.9 mmol/L; ABG Glucose Whole Blood 130 mg/dL (75-99); ABG HCO3 29 mmol/L (21-25); ABG Hematocrit 33 % (34.0-46.0); ABG Ionized Calcium 4.9 mg/dL (4.5-5.3); ABG Lactic Acid Whole Blood 1.6 mmol/L (0.5-1.6); ABG Oxygen Saturation 98.9 % (94-97); ABG PCO2 42 mmHg (35-45); ABG PH 7.45 (7.35-7.45); ABG PO2 139 mmHg (83-108); ABG Potassium Whole Blood 3.9 mmol/L (3.4-4.5); ABG Sodium Whole Blood 141 mmol/L (135-146); ABG TCO2 31 mmol/L (19-24)
[2022-01-19 10:04] LABS: ABG Base Excess 4.9 mmol/L; ABG Glucose Whole Blood 171 mg/dL (75-99); ABG HCO3 28 mmol/L (21-25); ABG Hematocrit 33 % (34.0-46.0); ABG Ionized Calcium 4.9 mg/dL (4.5-5.3); ABG Lactic Acid Whole Blood 1.6 mmol/L (0.5-1.6); ABG PCO2 36 mmHg (35-45); ABG PH 7.51 (7.35-7.45); ABG Potassium Whole Blood 3.7 mmol/L (3.4-4.5); ABG Sodium Whole Blood 141 mmol/L (135-146); ABG TCO2 29 mmol/L (19-24)
[2022-01-19] MEDS ORDERED: SODIUM CHLORIDE 0.9% 500 ML 500 ML with HEPARIN SODIUM,PORCINE 5,000 UNIT IV ONE ×2 (10:16)
[2022-01-19] MEDS ORDERED: ceFAZolin 1,000 MG in SODIUM CHLORIDE 0.9% 1,000 ML IRRIGATION ONE (10:17)
[2022-01-19 10:55] LABS: ABG Base Excess 0.3 mmol/L; ABG Glucose Whole Blood 140 mg/dL (75-99); ABG HCO3 24 mmol/L (21-25); ABG Ionized Calcium 3.9 mg/dL (4.5-5.3); ABG PCO2 36 mmHg (35-45); ABG PH 7.44 (7.35-7.45); ABG PO2 397 mmHg (83-108); ABG Potassium Whole Blood 3.3 mmol/L (3.4-4.5); ABG Sodium Whole Blood 136 mmol/L (135-146); ABG TCO2 26 mmol/L (19-24)
[2022-01-19 11:33] LABS: ABG Base Excess -0.8 mmol/L; ABG Glucose Whole Blood 180 mg/dL (75-99); ABG HCO3 26 mmol/L (21-25); ABG Hematocrit 25 % (34.0-46.0); ABG Ionized Calcium 4.1 mg/dL (4.5-5.3); ABG Oxygen Saturation 99.6 % (94-97); ABG PCO2 51 mmHg (35-45); ABG PH 7.31 (7.35-7.45); ABG PO2 314 mmHg (83-108); ABG Sodium Whole Blood 138 mmol/L (135-146); ABG TCO2 27 mmol/L (19-24)
[2022-01-19 12:08] LABS: ABG Base Excess 1.7 mmol/L; ABG Glucose Whole Blood 156 mg/dL (75-99); ABG HCO3 26 mmol/L (21-25); ABG Oxygen Saturation 99.8 % (94-97); ABG PCO2 39 mmHg (35-45); ABG PH 7.44 (7.35-7.45); ABG PO2 328 mmHg (83-108); ABG Potassium Whole Blood 4.5 mmol/L (3.4-4.5); ABG Sodium Whole Blood 139 mmol/L (135-146); ABG TCO2 27 mmol/L (19-24)
[2022-01-19 12:57] LABS: ABG Base Excess 0.6 mmol/L; ABG Glucose Whole Blood 154 mg/dL (75-99); ABG HCO3 25 mmol/L (21-25); ABG Hematocrit 26 % (34.0-46.0); ABG Oxygen Saturation 99.8 % (94-97); ABG PCO2 39 mmHg (35-45); ABG PH 7.42 (7.35-7.45); ABG PO2 279 mmHg (83-108); ABG Potassium Whole Blood 4.4 mmol/L (3.4-4.5); ABG Sodium Whole Blood 139 mmol/L (135-146); ABG TCO2 26 mmol/L (19-24)
[2022-01-19 13:37] LABS: ABG Base Excess -0.3 mmol/L; ABG Glucose Whole Blood 147 mg/dL (75-99); ABG HCO3 24 mmol/L (21-25); ABG Ionized Calcium 3.8 mg/dL (4.5-5.3); ABG Oxygen Saturation 99.9 % (94-97); ABG PCO2 39 mmHg (35-45); ABG PH 7.41 (7.35-7.45); ABG PO2 368 mmHg (83-108); ABG Potassium Whole Blood 4.5 mmol/L (3.4-4.5); ABG Sodium Whole Blood 140 mmol/L (135-146); ABG TCO2 26 mmol/L (19-24)
[2022-01-19] MEDS: SODIUM BICARB 8.4% 50 ML SYR (1 MEQ/ML) IV ONE (13:55)
[2022-01-19] MEDS: GLIMEPIRIDE 2 MG TAB PO SCH (13:55)
[2022-01-19] MEDS: FUROSEMIDE 10 MG/ML 4 ML VIAL IV SCH (13:56)
[2022-01-19] MEDS: LINAGLIPTIN 5 MG TABLET PO SCH (13:56)
[2022-01-19] MEDS: INSULIN ASPART (NovoLOG) 100 UNIT/ML VIAL SQ SCH (13:56)
[2022-01-19] MEDS: METOPROLOL TARTRATE 50 MG TAB PO SCH (13:57)
[2022-01-19] MEDS: MUPIROCIN 2% OINT 22 GM TUBE NASAL SCH ×2 (13:57→23:35)
[2022-01-19 15:43] LABS: ABG PO2 >420 mmHg (83-108)
[2022-01-19 15:43] LABS: ABG Hematocrit 19 % (34.0-46.0)
[2022-01-19] MEDS ORDERED: DEXTROSE 50% SYRINGE 50 ML IVP PRN ×2 (16:03)
[2022-01-19] MEDS ORDERED: AMIODARONE 360 MG in DEXTROSE 5% IN WATER 200 ML IV ONE ×2 (16:03)
[2022-01-19] MEDS ORDERED: BENZOCAINE/MENTHOL LOZENG 1 EACH LOZENGE MUCOUS MEM PRN (16:03)
[2022-01-19] MEDS ORDERED: Magnesium Replacement Protocol 1 EACH MISC MISCELLANE PRN (16:03)
[2022-01-19] MEDS ORDERED: Potassium Replacement Protocol 1 EACH MISC MISCELLANE PRN (16:03)
[2022-01-19] MEDS ORDERED: AMIODARONE 450 MG in DEXTROSE 5% IN WATER 250 ML IV SCH ×2 (16:03)
[2022-01-19] MEDS ORDERED: ONDANSETRON 4 MG/2 ML VIAL IVP PRN (16:03)
[2022-01-19] MEDS ORDERED: hydrALAZINE HCL 20 MG/ML 1 ML VIAL IVP PRN (16:03)
[2022-01-19] MEDS ORDERED: CALCIUM GLUCONATE IN NACL 2 GM in SALINE 1 100ML.BAG IVPB PRN (16:03)
[2022-01-19] MEDS ORDERED: METOCLOPRAMIDE 5 MG/ML 2 ML VIAL IVP PRN (16:03)
[2022-01-19] MEDS ORDERED: DEXMEDETOMIDINE/0.9% NACL(PMX) 400 MCG in EMPTY BAG 1 BAG IV SCH (16:03)
[2022-01-19] MEDS ORDERED: MORPHINE SULFATE 2 MG/ML SYRINGE IVP PRN (16:03)
[2022-01-19] MEDS: IPRATROPIUM-ALBUTEROL 3 ML NEB INHALATION SCH ×2 (16:27→19:50)
[2022-01-19 16:48] LABS: ABG Lactic Acid Whole Blood 3.1 mmol/L (0.5-1.6)
[2022-01-19 16:48] LABS: ABG Lactic Acid Whole Blood 2.8 mmol/L (0.5-1.6)
[2022-01-19 16:49] LABS: ABG Hematocrit 24 % (34.0-46.0)
[2022-01-19 16:50] LABS: ABG Lactic Acid Whole Blood 3.6 mmol/L (0.5-1.6)
[2022-01-19 16:51] LABS: ABG Hematocrit 21 % (34.0-46.0); ABG Lactic Acid Whole Blood 4.1 mmol/L (0.5-1.6)
[2022-01-19] MEDS ORDERED: DEXTROSE 5% IN WATER 100 ML with AMIODARONE 150 MG IV PRN (16:57)
[2022-01-19] MEDS ORDERED: AMIODARONE 360 MG in DEXTROSE 5% IN WATER 200 ML IV PRN ×2 (16:58)
[2022-01-19] MEDS ORDERED: AMIODARONE 450 MG in DEXTROSE 5% IN WATER 250 ML IV PRN ×2 (16:58)
[2022-01-19 17:01] LABS: ABG HCO3 26 mmol/L (21-25); ABG Oxygen Saturation 99.1 % (94-97); ABG PCO2 54 mmHg (35-45); ABG PH 7.28 (7.35-7.45); ABG PO2 129 mmHg (83-108); ABG TCO2 27 mmol/L (19-24)
[2022-01-19] MEDS: INSULIN REGULAR 100 UNIT in SODIUM CHLORIDE 0.9% 100 ML IV SCH (17:01)
[2022-01-19 17:05] LABS: Allen Test Performed? no
[2022-01-19] MEDS: SODIUM CHLORIDE 0.9% 1,000 ML IV SCH (17:05)
[2022-01-19] MEDS: MILRINONE-D5W PMX 20 MG in DEXTROSE/WATER 1 100ML.BAG IV SCH (17:05)
[2022-01-19] MEDS: NOREPINEPHRINE 4 MG in SODIUM CHLORIDE 0.9% 250 ML IV SCH (17:06)
[2022-01-19 17:07] LABS: Basophils # (A) 0.1 k/uL (0-0.2); Basophils % (A) 0 %; Eosinophils # (A) 0.1 k/uL (0-0.7); Eosinophils % (A) 1 %; HCT 25.4 % (34.0-46.0); Lymphocytes # (A) 1.2 k/uL (1.0-4.8); Lymphocytes % (A) 8 %; MCH 29.2 pg (25.0-35.0); MCV 88.6 fL (80.0-100.0); Mean Platelet Volume 10.8; Monocytes # (A) 0.9 k/uL (0-1.0); Monocytes % (A) 6 %; Neutrophils # (A) 12.4 k/uL (1.3-7.7); Neutrophils % (A) 84 %; Poikilocytosis Slight; RBC 2.86 m/uL (3.80-5.40); WBC 14.8 k/uL (3.8-10.6)
[2022-01-19 17:10] LABS: Glucose,Whole Blood 183 mg/dL (70-110)
[2022-01-19 17:11] LABS: Ionized Calcium 3.9 mg/dL (4.5-5.3)
[2022-01-19 17:15] LABS: HGB 8.4 gm/dL (11.4-16.0); INR 1.3 (<1.2); Partial Thromboplastin Time 34.5 sec (22.0-30.0); Platelet Count 75 k/uL (150-450); Prothrombin Time 13.6 sec (9.0-12.0)
--- NOTE | 2022-01-19 17:16 | XR ---
EXAMINATION TYPE: XR chest 1V portable DATE OF EXAM: 01/19/2022 COMPARISON: 01/18/2022 HISTORY: Cardiac surgery TECHNIQUE: Single view FINDINGS: The endotracheal tube is 2.5 cm from the jeremy. There is right jugular catheter with tip i n the main pulmonary artery. There are sternal wires. There is nasogastric tube in the stomach. There is some pulmonary interstitial edema. There is mild blunting left costophrenic angle. There is mild infiltrate left lower lobe. IMPRESSION: There is some mild pulmonary infiltrates and atelectasis mainly in the left lower lobe. C ardiac surgery. Tubing in good position.
[2022-01-19 17:18] LABS: Albumin 2.6 g/dL (3.5-5.0); Calcium 7.1 mg/dL (8.4-10.2); Magnesium 2.8 mg/dL (1.6-2.3); Potassium 3.3 mmol/L (3.5-5.1); Total Bilirubin 1.4 mg/dL (0.2-1.3)
[2022-01-19] MEDS: ALBUMIN HUMAN 5% 250 ML in EMPTY BAG 1 BAG IVPB PRN ×3 (17:50→23:34)
[2022-01-19 18:04] LABS: Glucose,Whole Blood 150 mg/dL (70-110)
[2022-01-19 19:02] LABS: Glucose,Whole Blood 159 mg/dL (70-110)
[2022-01-19 19:06] LABS: Basophils # (A) 0.1 k/uL (0-0.2); Basophils % (A) 1 %; Eosinophils % (A) 0 %; HCT 20.3 % (34.0-46.0); HGB 7.2 gm/dL (11.4-16.0); Hypochromasia Slight; Lymphocytes # (A) 0.8 k/uL (1.0-4.8); Lymphocytes % (A) 7 %; MCH 31.3 pg (25.0-35.0); MCHC 35.3 g/dL (31.0-37.0); MCV 88.7 fL (80.0-100.0); Mean Platelet Volume 10.9; Monocytes # (A) 0.6 k/uL (0-1.0); Monocytes % (A) 5 %; Neutrophils # (A) 9.9 k/uL (1.3-7.7); Neutrophils % (A) 86 %; Platelet Count 71 k/uL (150-450); Poikilocytosis Slight; RBC 2.29 m/uL (3.80-5.40); RDW 14.9 % (11.5-15.5); WBC 11.5 k/uL (3.8-10.6)
[2022-01-19] MEDS: ACETAMINOPHEN IV (For NPO) 1,000 MG in EMPTY BAG 1 BAG IVPB SCH ×2 (19:12→23:38)
[2022-01-19 20:06] LABS: Glucose,Whole Blood 148 mg/dL (70-110)
[2022-01-19] MEDS: POTASSIUM CHLORIDE 20 MEQ in WATER FOR INJECTION 1 100ML.BAG IVPB SCH ×2 (20:14→22:07)
[2022-01-19 21:09] LABS: Glucose,Whole Blood 168 mg/dL (70-110)
[2022-01-19 21:18] LABS: Basophils # (A) 0.1 k/uL (0-0.2); Basophils % (A) 1 %; Eosinophils % (A) 0 %; Hypochromasia Slight; Lymphocytes # (A) 0.7 k/uL (1.0-4.8); Lymphocytes % (A) 7 %; MCH 29.6 pg (25.0-35.0); MCHC 33.1 g/dL (31.0-37.0); MCV 89.5 fL (80.0-100.0); Mean Platelet Volume 11.8; Monocytes # (A) 0.7 k/uL (0-1.0); Monocytes % (A) 7 %; Neutrophils # (A) 8.3 k/uL (1.3-7.7); Neutrophils % (A) 84 %; Platelet Count 104 k/uL (150-450); Poikilocytosis Slight; RBC 2.02 m/uL (3.80-5.40); RDW 15.3 % (11.5-15.5); WBC 9.9 k/uL (3.8-10.6)
[2022-01-19 21:25] LABS: HCT 18.1 % (34.0-46.0)
[2022-01-19 22:24] LABS: Glucose,Whole Blood 136 mg/dL (70-110)
[2022-01-19 23:19] LABS: Glucose,Whole Blood 123 mg/dL (70-110)
[2022-01-19] MEDS: CLOPIDOGREL 75 MG TAB PO SCH (23:21)
[2022-01-19] MEDS: IPRATROPIUM-ALBUTEROL 3 ML NEB INHALATION PRN (23:47)
[2022-01-20 00:20] LABS: Glucose,Whole Blood 104 mg/dL (70-110)
[2022-01-20 01:30] LABS: Glucose,Whole Blood 120 mg/dL (70-110)
[2022-01-20] MEDS: ALBUMIN HUMAN 5% 250 ML in EMPTY BAG 1 BAG IVPB PRN ×3 (02:06→15:24)
[2022-01-20] MEDS: NOREPINEPHRINE 4 MG in SODIUM CHLORIDE 0.9% 250 ML IV SCH ×3 (02:10→10:13)
[2022-01-20 02:24] LABS: Glucose,Whole Blood 110 mg/dL (70-110)
--- NOTE | 2022-01-20 02:35 | OP ---
OPERATIVE REPORT ASSISTANTS: 1. Juan Mcdonald MD. 2. Raimundo Lyons, Nurse Practitioner. 3. Pancho Rivera, Nurse Practitioner. PREOPERATIVE DIAGNOSES: Severe triple-vessel coronary artery disease with left main disease, non-ST elevation myocardial infarction, moderate left ventricular dysfunction, moderate aortic valve stenosis, paroxysmal atrial fibrillation, status post stenting to the LAD and the circumflex artery in April 2021, diabetes, hypertension, hyperlipidemia. POSTOPERATIVE DIAGNOSES: Severe triple-vessel coronary artery disease with left main disease, non-ST elevation myocardial infarction, moderate left ventricular dysfunction, moderate aortic valve stenosis, paroxysmal atrial fibrillation, status post stenting to the LAD and the circumflex artery in April 2021, diabetes, hypertension, hyperlipidemia with evidence of an old anteroapical myocardial infarction. PROCEDURES PERFORMED: 1. Quadruple coronary artery bypass grafting using the left internal mammary artery to the left anterior descending artery, left radial artery from the aorta to the first obtuse marginal artery, reverse saphenous vein graft from the aorta to the third obtuse marginal artery, reverse saphenous vein graft from the aorta to the posterior descending artery. 2. Aortic valve replacement using a 21 mm Inspiris pericardial bioprosthesis. 3. Bilateral pulmonary vein isolation using a bipolar radiofrequency clamp from Atri[employer]. 4. Exclusion of the left atrial appendage using a 35 mm AtriClip. 5. Insertion of an intra-aortic balloon pump. 6. Graft flow measurements using the Executive [place]addie-Stim system. 7. Intraoperative transesophageal echocardiogram and epiaortic scanning. INDICATIONS FOR SURGERY: The patient is a 77-year-old lady who had stenting of her LAD and circumflex artery proximally in April 2021. She was admitted in a picture of congestive heart failure and had positive cardiac enzymes. Cardiac catheterization followed and that showed what seems to be severe in-stent restenosis of the LAD and the circumflex with evidence of a significant proximal stenosis of the right coronary artery. An echo followed and that showed an ejection fraction of around 45% and evidence of moderate aortic valve stenosis that had moderate calcification in it. The patient was maintained on heparin and had received Plavix and over 3 days, the preoperative workup was completed as well as urgent dental evaluation that resulted into needing to extract 4 teeth and the patient needs further workup. However, in view of the precarious coronary flow via the left system, we are proceeding with urgent surgery three days after Plavix cessation. The patient was kept on IV heparin till on-call to the operating room. The STS risk which was elevated was discussed with the patient and her family. They understood it and agreed to proceed. DESCRIPTION OF THE PROCEDURE: The patient in supine position in the preoperative holding area. Right internal jugular Calvin-Juan F catheter and a right radial arterial line were placed. PA pressure was 42/24 and cardiac index was 2.5. Subsequently, she was brought to the operating room, where general endotracheal anesthesia was induced uneventfully. Porter catheter was inserted. The chest, abdomen, both lower extremities, and the left upper extremity were prepped and draped using ChloraPrep. Ioban was used to cover the skin. The patient received 2 g of cefazolin intravenously. Transesophageal echocardiogram confirmed the preoperative finding of moderate left ventricular dysfunction with severe distal anteroapical hypokinesia to akinesia. There was mild mitral valve regurgitation. A midline sternotomy was performed and the bone was moderately osteoporotic. No bone wax was used. The left hemisternum was elevated and the left internal mammary artery was harvested in a somewhat skeletonized fashion. The patient received 5000 units of heparin and the mammary artery was transected distally after double clipping it and had a good excellent pulsatile flow in it and was around 1.75 mm in diameter. The left pleura was intentionally opened in this process and was drained with a 19-[place]ine[place] Hayden drain. There was a breach in the right pleura that was also drained with another 19- [place] Hayden drain. In the same setting, the left radial artery was exposed at the wrist and a clamping trial revealed preserved signal in the left index O2 saturation probe. Subsequently, the radial artery was harvested endoscopically without using a tourniquet. Forearm incisions were closed over a drain. The radial artery was prepared by incising the fascia all along its volar aspect and clipping all its branches. It was of good quality around 2.5 mm in diameter. Also in the same setting, the left greater saphenous vein was harvested endoscopically from groin to above ankle level after administration of 2000 units of heparin. The leg incisions were closed over a drain. The vein was prepared by tying all its branches. It had a good size segment and smaller in diameter, but very usable segment from the lower leg that was thin- walled. Ankeney retractor was used. Mediastinal fat was transected between 2 ties and epiaortic scanning ruled out any protruding atheroma in the ascending aorta. Pericardium was opened in an inverted T-fashion and a pericardial cradle was created. Finding included a normal soft aorta and a boggy intra-apical wall with evidence of an old anterior myocardial infarction. There was evidence of diffuse calcific coronary artery disease. After systemic heparinization after placement of respective pledgeted pursestring, aortic cannulation with a 21 soft flow cannula and venous cannulation via the right atrial appendage with a 3-stage 29-Guinean cannula was performed. Antegrade as well as retrograde cardioplegia catheter were placed. Cardioplegia bypass was initiated and the patient's temperature was allowed to drift down to 34 degrees Celsius. With the heart empty and beating, we looked at the target. It appeared that the intramyocardial LAD that emerged distally would be the site for bypass, the first obtuse marginal artery was found very proximally before it went intramyocardial, the 3rd obtuse marginal artery, which was a good branch with diffuse disease was also identified, the distal right coronary artery was calcified and it went to the very proximal aspect of the posterior descending artery, which would be the site for bypass. At this point, we proceeded on a beating heart to perform radiofrequency ablation of the right-sided pulmonary vein that had been encircled and I used the bipolar radiofrequency clamp from Atri[employer]ure. Subsequently, the aorta was clamped and myocardial protection was achieved when initial dose of 800 mL of antegrade cold blood cardioplegia followed by 500 mL of retrograde cold blood cardioplegia. All subsequent doses were given retrograde at 15 minutes intervals. At this point, I completed the left-sided pulmonary vein isolation by encircling the left-sided veins and applying 3 ablation with the bipolar radiofrequency clamp. Subsequently, the left atrial appendage was excluded by deploying a 35 mm AtriClip at its base. At this point, we proceeded at performing the distal anastomosis. The first distal anastomosis was between a segment of vein of good quality and size and a 1.5 mm diffusely diseased 3rd obtuse marginal artery using Prolene 7-0 in continuous fashion. The 2nd distal anastomosis was between the radial artery and the very proximal aspect of the 1st obtuse marginal artery, which was around 1.5 mm in diameter using Prolene 7- 0 in continuous fashion. The 3rd distal anastomosis was between another segment of vein of smaller caliber, but smooth and thin-walled and the 1.5 mm proximal aspect of the posterior descending artery using Prolene 7-0 in continuous fashion. The fourth and last distal anastomosis were between the left internal mammary artery that passed in a deep groove in the left pleural pericardial fat and anastomosed to the distal left anterior descending artery which was also diffuse disease around 1.5 mm in diameter using Prolene 7-0 in continuous fashion. I used a 1 mm shunt in every distal anastomosis and I removed it before completing the anastomosis. At this point, we moved to performing the aortic valve replacement part. The aorta was opened around 1 cm above the sinotubular junction in a transverse fashion. Exploration revealed a moderately calcified aortic valve, which was excised nicely. The anulus was debrided from 2 spots of calcium to pliable anulus. Thorough irrigation performed. The valve was sized to a 21 mm Inspiris. We passed a total of 12 sutures of Ti- Cron 2- 0 nonpledgeted in a horizontal mattress fashion that were passed nicely and symmetrically into the cuff of the prosthesis that seated nicely in a supra- annular position. The needles were cut and the suture tied using the Cor-Knot device. Irrigation one more time was performed. Both coronary ostia were clear. Subsequently, the aorta was used in 2 layers using 4-0 Prolene buttress on each corner with a pledget and the first layer in a horizontal mattress and the second layer in an [id number] technique. At this point, rewarming was started as we punched out 3 buttons of the ascending aorta above the aortotomy and performed the 3 proximal anastomosis of the 2 veins and the radial artery separately using running Prolene. The patient was half loaded with Primacor and de-airing maneuvers were followed. The patient was placed in Trendelenburg position and with the aortic vent on maximum, we unclamped the aorta. Two monopolar atrial pacing wires were affixed to the respective pursestring of the right atrium and 1 bipolar ventricular pacing wire was driven via the inferior aspect of the right ventricle. The patient had a slow junctional rhythm and for that reason, I imposed an AV pacing. We de-aired, guided by SERENE. After around 15 to 20 minutes of reperfusion, we were able to wean off cardioplegia bypass; however, required Levophed and Primacor and the index was borderline at around 1.9. There were periods of hypertension and required limit of vasopressin. Looking at the SERENE, the left ventricle was [id number] depressed, while the right ventricle was normal. I decided at this point to support the patient with insertion of an intra- aortic balloon pump. Attempt at passing a wire and sheath on the right side failed probably because of calcification of the arterial wall. For that reason, I moved to the left side and was able to under ultrasound guidance access the left femoral vein, and put a 6-Guinean sheath and through the sheath, passed an intra-aortic balloon pump that went over wire guided by SERENE in the left proximal descending aorta. With that, the hemodynamics improved. That allowed us to give test dose and full-dose protamine after stopping pump suckers. Decannulation followed and that was done after completing a graft flow measurements that revealed excellent graft flow. So, using the Medi-Stim system and a 4 mm probe, we measured flow into the vein to the posterior descending artery and it was 83 mL/minute, pulsatility index of 1 and diastolic filling of 61%. Flow into the vein to the 3rd obtuse marginal artery was 82 mL/minute, pulsatility index of 2.2, and diastolic filling of 70%. The flow into the radial artery to the 1st obtuse marginal artery was 41 mL/minute, pulsatility index of 2.3, diastolic filling of 70%. The flow into the ALEGRE to the LAD was 21 mL/minute, pulsatility index of 3.3, diastolic filling of 62% all showing excellent functioning graft. Mediastinal fat was approximated over the aorta and the RV partially. After ensuring adequate hemostasis and hemodynamic and after correct sponge, instrument, and needle count, the sternum was approximated using 5 [id number] pionneer cables after interposing fibrillar between the sternal edges. Thorough irrigation with cefazolin followed. The rest of the closure proceeded in layers. Skin glue was applied. The patient received 2 units of packed red blood cells, 5 units of platelets, and 2 units FFP in the operating room. She received also 1.2 L of Cell Saver blood. She was transferred to the ICU in stable condition with an intra-aortic balloon pump at one-to- one, Milrinone at 0.2 mcg per kg per minute and low-dose Levophed with a cardiac index of 2.1 and PA pressure of 25/12. Atrially paced at this point at 90 with good AV conduction and a mean arterial pressure augmented around 72. MMODL / IJN: [id number] / [facility] SYSTEMAnali
[2022-01-20 03:01] LABS: Glucose,Whole Blood 112 mg/dL (70-110)
[2022-01-20 03:44] LABS: Basophils % (A) 0 %; Eosinophils % (A) 0 %; HCT 22.1 % (34.0-46.0); HGB 7.4 gm/dL (11.4-16.0); Hypochromasia Slight; Lymphocytes # (A) 1.1 k/uL (1.0-4.8); Lymphocytes % (A) 11 %; MCH 30.1 pg (25.0-35.0); MCHC 33.4 g/dL (31.0-37.0); MCV 89.9 fL (80.0-100.0); Mean Platelet Volume 11.4; Monocytes # (A) 0.7 k/uL (0-1.0); Monocytes % (A) 6 %; Neutrophils # (A) 8.8 k/uL (1.3-7.7); Neutrophils % (A) 82 %; Platelet Count 103 k/uL (150-450); Poikilocytosis Slight; RBC 2.46 m/uL (3.80-5.40); RDW 14.5 % (11.5-15.5); WBC 10.8 k/uL (3.8-10.6)
[2022-01-20] MEDS ORDERED: SODIUM BICARB 8.4% 50 ML SYR (1 MEQ/ML) ONE ×2 (03:47→17:27)
[2022-01-20 03:50] LABS: ABG PH 7.29 (7.35-7.45); Allen Test Performed? Yes
[2022-01-20 03:51] LABS: ABG Base Excess -8.6 mmol/L; ABG HCO3 18 mmol/L (21-25); ABG PCO2 38 mmHg (35-45); ABG PO2 109 mmHg (83-108); ABG TCO2 19 mmol/L (19-24)
[2022-01-20] MEDS ORDERED: SODIUM BICARB 8.4% 50 ML SYR (1 MEQ/ML) IV STA ×4 (03:53→17:25)
[2022-01-20] MEDS ORDERED: HYDROcodone/APAP 5-325MG 1 EACH TAB PO PRN ×2 (03:54)
[2022-01-20] MEDS: IPRATROPIUM-ALBUTEROL 3 ML NEB INHALATION PRN (03:58)
[2022-01-20] MEDS ORDERED: EPINEPHrine 4 MG in DEXTROSE 5% IN WATER 250 ML IV SCH ×2 (04:00)
[2022-01-20 04:25] LABS: Ionized Calcium 4.8 mg/dL (4.5-5.3)
[2022-01-20 04:30] LABS: Glucose,Whole Blood 94 mg/dL (70-110)
[2022-01-20 04:41] LABS: Calcium 7.8 mg/dL (8.4-10.2); Magnesium 2.6 mg/dL (1.6-2.3); Potassium 4.4 mmol/L (3.5-5.1); Total Bilirubin 1.3 mg/dL (0.2-1.3); Total Protein 4.3 g/dL (6.3-8.2)
[2022-01-20] MEDS: MILRINONE-D5W PMX 20 MG in DEXTROSE/WATER 1 100ML.BAG IV SCH (05:53)
[2022-01-20 05:54] LABS: Glucose,Whole Blood 85 mg/dL (70-110)
[2022-01-20 05:59] LABS: ABG Base Excess -6.3 mmol/L; ABG HCO3 20 mmol/L (21-25); ABG Oxygen Saturation 98.1 % (94-97); ABG PCO2 37 mmHg (35-45); ABG PH 7.34 (7.35-7.45); ABG PO2 95 mmHg (83-108); ABG TCO2 21 mmol/L (19-24); Allen Test Performed? Yes
[2022-01-20 06:38] LABS: Glucose,Whole Blood 125 mg/dL (70-110)
[2022-01-20 08:09] LABS: Glucose,Whole Blood 117 mg/dL (70-110)
[2022-01-20] MEDS: IPRATROPIUM-ALBUTEROL 3 ML NEB INHALATION SCH ×3 (08:19→16:04)
--- NOTE | 2022-01-20 08:28 | XR ---
EXAMINATION TYPE: XR chest 1V portable DATE OF EXAM: 01/20/2022 COMPARISON: 01/19/2022 INDICATION: Postop cardiac surgery TECHNIQUE: Single frontal view of the chest is obtained. FINDINGS: The heart size is mildly prominent. The pulmonary vasculature is normal. Mild infiltrate in the left lower lung field. Sternotomy wires are present prior cardiac valve surgery. [place]-Juan F catheter is present with the tip in the main pulmonary artery. Endotracheal tube tip is above the jeremy. Nasogastric tube tip is in l eft upper quadrant of the abdomen. Epicardial leads appear to be present. IMPRESSION: 1. Left lower lobe infiltrate recoiling for atelectasis or pulmonary edema, and pneumonia. Findings a re improving from comparison. 2. Lines and catheters discussed above.
[2022-01-20] MEDS ORDERED: CALCIUM GLUCONATE IN NACL 1 GM in SALINE 1 100ML.BAG IVPB ONE (08:30)
[2022-01-20] MEDS ORDERED: METOPROLOL TARTRATE 12.5 MG TAB PO SCH (09:00)
[2022-01-20] MEDS ORDERED: CHLORHEXIDINE GLUCONATE 15 ML CUP MUCOUS MEM SCH (09:00)
[2022-01-20] MEDS ORDERED: ATORVASTATIN 40 MG TAB PO SCH (09:00)
[2022-01-20] MEDS ORDERED: ASPIRIN 325 MG TAB PO SCH ×2 (09:00)
[2022-01-20] MEDS ORDERED: ASPIRIN 81 MG PO SCH (09:00)
[2022-01-20] MEDS ORDERED: ENOXAPARIN 40 MG/0.4 ML SYRINGE SQ SCH (09:00)
[2022-01-20] MEDS ORDERED: PANTOPRAZOLE 40 MG/10 ML VIAL IVP SCH (09:00)
[2022-01-20] MEDS ORDERED: CLOPIDOGREL 75 MG TAB PO SCH (09:00)
[2022-01-20] MEDS ORDERED: MAGNESIUM HYDROXIDE 2,400 MG/10 ML CUP PO PRN (09:00)
[2022-01-20] MEDS ORDERED: bisacodyL 10 MG SUPP RECTAL PRN (09:00)
--- NOTE | 2022-01-20 09:03 | P.PN ---
Subjective Progress Note Date: 01/20/22 Principal diagnosis: Severe triple-vessel coronary artery disease with left main disease with evidence of old anteroapical myocardial infarction, non-STEMI this admission, moderate left ventricular dysfunction, acute and chronic diastolic heart failure this admission, moderate aortic valve stenosis. 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, peripheral arterial disease, and family history of coronary artery disease POD #1 quadruple coronary artery bypass grafting using the left internal mammary artery to the left anterior descending artery, left radial artery from the aorta to the first obtuse marginal artery, reverse saphenous vein graft from the aorta to the third obtuse marginal artery, reverse saphenous vein graft from the aorta to the posterior descending artery, aortic valve replacement using a 21 mm Inspiris pericardial bioprosthesis, bilateral pulmonary vein isolation using a bipolar radiofrequency clamp from AtriCure, exclusion of the left atrial appendage using a 35 mm AtriClip, insertion of intra-aortic balloon pump, graft flow measurements using the [employer] system, intraoperative transesophageal echocardiogram and epi-aortic scanning Postoperative acute blood loss anemia and thrombocytopenia, expected given hemodilution and cardiopulmonary bypass pump Hypotension requiring pressor use, expected Elevated transaminases, likely due to hypotension The patient was seen and examined this morning with Dr. Mcdonald laying in bed in the intensive care unit, remains mechanically ventilated with intra-aortic balloon pump in place. She had a romero first night after surgery with hypotension. Currently on IV Primacor, Levophed, and epinephrine. She did have some acidosis last night requiring administration of sodium bicarb. She has received multiple blood products. Intra-aortic balloon pump remains with 1:1 augmentation. Regular jugular Blackfoot/Cordis, right radial arterial line, mediastinal/left/right pleural chest tubes, left radial and left lower extremity FUNMI drains all remain present. Echo to be completed today to evaluate left and right ventricular function. Case also discussed with Dr. Shook Objective - Vital Signs Vital signs: Vital Signs Temp 98.8 F 01/20/22 04:34 Pulse 105 H 01/20/22 08:20 Resp 16 01/20/22 07:00 BP 114/40 01/20/22 04:34 Pulse Ox 97 01/20/22 07:00 FiO2 60 01/20/22 07:45 Intake & Output 01/19/22 01/20/22 01/20/22 18:59 06:59 18:59 Intake Total 2045.484 4657.279 Output Total 5290 1507 Balance -3244.516 3150.279 Weight 79.4 kg Intake: IV 4 1650 Albumin Human 5% 250 ml 500 In Empty Bag 1 bag @ 250 mls/hr IVPB Q1HR PRN Rx#: [id number] CO/CI 250 Calcium Gluconate in NaCl 100 2 gm In Saline 1 100ml. bag @ 100 mls/hr IVPB ONCE PRN Rx#:[id number] Potassium Chloride 20 meq 200 In Water For Injection 1 100ml.bag @ 50 mls/hr IVPB Q2H JANETTE Rx#: [id number] Sodium Chloride 0.9% 1, 600 000 ml @ 50 mls/hr IV . Q20H JANETTE Rx#:[id number] Intake, IV Titration 753.188 8786.279 Amount ACETAMINOPHEN IV (For NPO 100 ) 1,000 mg In Empty Bag 1 bag @ 400 mls/hr IVPB Q6HR JANETTE Rx#:[id number] Albumin Human 5% 250 ml 250 250 In Empty Bag 1 bag @ 250 mls/hr IVPB Q1HR PRN Rx#: [id number] EPINEPHrine 4 mg In 2.785 Dextrose 5% in Water 250 ml @ 0.01 MCG/KG/MIN 2. 494 mls/hr IV .Q24H JANETTE Rx#:[id number] Insulin Regular 100 unit 10.942 77.938 In Sodium Chloride 0.9% 100 ml @ Per Protocol IV .Q0M JANETTE Rx#:[id number] Milrinone-D5w Pmx 20 mg 14.8 103.157 In Dextrose/Water 1 100ml .bag @ 0.375 MCG/KG/MIN 7 .481 mls/hr IV .[id number] JANETTE Rx#:[id number] Nitroglycerin-D5w Pmx 50 3.0 1.5 mg In Dextrose/Water 1 250ml.bag @ 5 MCG/MIN 1.5 mls/hr IV .Q24H JANETTE Rx#: [id number] Norepinephrine 4 mg In 65.742 410.665 Sodium Chloride 0.9% 250 ml @ 0.03 MCG/KG/MIN 7. 601 mls/hr IV .Q24H JANETTE Rx#:[id number] Sodium Chloride 0.9% 1, 50 50 000 ml @ 50 mls/hr IV . Q20H JANETTE Rx#:[id number] ceFAZolin 1,000 mg In 50 Sodium Chloride 0.9% 50 ml @ 100 mls/hr IVPB Q8HR JANETTE Rx#:[id number] propofoL 1,000 mg In 32 175.234 Empty Bag 1 bag @ Titrate IV .Q0M JANETTE Rx#: [id number] Blood Product 1565 1836 Ffp 24 Cpd Unit 345 [id number] Ffp 24 Cpd Unit 315 [id number] Platelet Pheresis Pas 285 Psoralen Unit [id number] Platelet Pheresis Pas 286 Psoralen Unit [id number] Pooled Cryoprecipitate 80 Unit [id number] Rc As-1 Unit 310 [id number] Rc As-1 Unit 310 [id number] Rc As-1 Unit 310 [id number] Rc As-1 Unit 310 [id number] Output: Chest Tube Drainage 550 1090 Left Pleural [address] X2 160 100 Right Pleural 150 200 Drainage 30 40 Left Arm 20 Left Calf 30 20 Urine 710 377 Estimated Blood Loss 4000 Other: Voiding Method Indwelling Catheter Indwelling Catheter ABP, PAP, CO, CI - Last Documented Arterial Blood Pressure 111/42 Pulmonary Artery Pressure 34/24 Cardiac Output 3.3 Cardiac Index 2 - Exam CONSTITUTIONAL: Remains laying in bed in the intensive care unit, sedated and mechanically ventilated RESPIRATORY: Lungs sounds diminished bilaterally. Respirations even, nonlabored on mechanical ventilation. 8.0 ET tube present, 23 at the lip. Current settings assist control, FiO2 60%, tidal volume 450, respiratory rate 16, PEEP 5. ABGs this morning on those settings 7.3/37/95/20/-6.3 CARDIOVASCULAR: S1, S2 present. Tachy but regular rate and rhythm, sinus tach on telemetry with a rate in the low 100. Sternum stable. Palpable peripheral pulses bilaterally. Trace generalized edema present. No calf pain or tenderness noted. Heart hugger, antiembolism stockings, SCDs present. GASTROINTESTINAL: Abdomen soft, nontender, nondistended. Hypoactive bowel sounds present 4 quadrants. OG tube present with minimal bilious drainage GENITOURINARY: Porter present draining clear, yellow urine. Output overnight 15-30 mL per hour INTEGUMENTARY: Skin is warm and dry. Anterior chest incision well approximated and covered with dry intact dressing. Left radial artery harvest site as well as left lower extremity EVH site well approximated, FUNMI drains present with minimal drainage. PSYCHIATRIC: Remains sedated on mechanical ventilation, does open eyes INVASIVE LINES AND TUBES: Mediastinal/left/right pleural chest tubes present and connected to wall suction, no air leaks present. Mediastinal tube with 70 mL serosanguineous drainage overnight, 250 mL since surgery. Left pleural chest tube with 300 mL serosanguineous drainage overnight, 1050 mL since surgery. Right pleural chest tube with 140 mL serosanguineous drainage overnight, 350 mL since surgery. A/V epicardial pacemaker wires present, grounded. Right internal jugular Blackfoot/Cordis, right radial arterial line present. Last CO/CI 3.3/2.0, PA 33/22, CVP 19. 7.5-Macanese intra-aortic balloon pump, [address] to the left femoral artery with 11 augmentation, last augmented pressure 83 with mean 66. - Allied health notes Allied health notes reviewed: nursing - Labs CBC & Chem 7: 01/20/22 03:00 01/20/22 03:00 Labs: Abnormal Lab Results - Last 24 Hours (Table) 01/18/22 01/19/22 01/19/22 Range/Units 15:10 08:40 10:04 WBC (3.8-10.6) k/uL RBC (3.80-5.40) m/uL Hgb (11.4-16.0) gm/dL Hct (34.0-46.0) % Plt Count (150-450) k/uL Neutrophils # (1.3-7.7) k/uL Lymphocytes # (1.0-4.8) k/uL PT (9.0-12.0) sec INR (<1.2) APTT (22.0-30.0) sec Fibrinogen (200-500) mg/dL ABG pH 7.51 H (7.35-7.45) ABG pCO2 (35-45) mmHg ABG pO2 139 H >420 H (83-108) mmHg ABG HCO3 29 H 28 H (21-25) mmol/L ABG Total CO2 31 H 29 H (19-24) mmol/L ABG O2 Saturation 98.9 H 100.0 H (94-97) % ABG Hematocrit 33 L 33 L (34.0-46.0) % ABG Potassium (3.4-4.5) mmol/L ABG Ionized Calcium (4.5-5.3) mg/dL ABG Glucose 130 H 171 H (75-99) mg/dL ABG Lactic Acid (0.5-1.6) mmol/L Hemoglobin 10.9 L 10.7 L (11.4-16.0) gm/dL Potassium (3.5-5.1) mmol/L Chloride (98-107) mmol/L Carbon Dioxide (22-30) mmol/L BUN (7-17) mg/dL Creatinine (0.52-1.04) mg/dL Glucose (74-99) mg/dL POC Glucose (mg/dL) (70-110) mg/dL Calcium (8.4-10.2) mg/dL Ionized Calcium Denzel (4.5-5.3) mg/dL Magnesium (1.6-2.3) mg/dL Total Bilirubin (0.2-1.3) mg/dL AST (14-36) U/L ALT (4-34) U/L Alkaline Phosphatase (38-126) U/L Total Protein (6.3-8.2) g/dL Albumin (3.5-5.0) g/dL Arterial Blood Potassium (3.4-4.5) mmol/L Arterial Blood Glucose 130 H 171 H (75-99) mg/dL Crossmatch See Detail 01/19/22 01/19/22 01/19/22 Range/Units 10:55 11:33 12:07 WBC (3.8-10.6) k/uL RBC (3.80-5.40) m/uL Hgb (11.4-16.0) gm/dL Hct (34.0-46.0) % Plt Count (150-450) k/uL Neutrophils # (1.3-7.7) k/uL Lymphocytes # (1.0-4.8) k/uL PT (9.0-12.0) sec INR (<1.2) APTT (22.0-30.0) sec Fibrinogen (200-500) mg/dL ABG pH 7.31 L (7.35-7.45) ABG pCO2 51 H (35-45) mmHg ABG pO2 397 H 314 H 328 H (83-108) mmHg ABG HCO3 26 H 26 H (21-25) mmol/L ABG Total CO2 26 H 27 H 27 H (19-24) mmol/L ABG O2 Saturation 100.0 H 99.6 H 99.8 H (94-97) % ABG Hematocrit 19 L* 25 L 24 L (34.0-46.0) % ABG Potassium 3.3 L 5.0 H (3.4-4.5) mmol/L ABG Ionized Calcium 3.9 L 4.1 L 4.0 L (4.5-5.3) mg/dL ABG Glucose 140 H 180 H 156 H (75-99) mg/dL ABG Lactic Acid 2.0 H 3.1 H* 2.8 H* (0.5-1.6) mmol/L Hemoglobin 6.3 L* 8.1 L 7.7 L (11.4-16.0) gm/dL Potassium (3.5-5.1) mmol/L Chloride (98-107) mmol/L Carbon Dioxide (22-30) mmol/L BUN (7-17) mg/dL Creatinine (0.52-1.04) mg/dL Glucose (74-99) mg/dL POC Glucose (mg/dL) (70-110) mg/dL Calcium (8.4-10.2) mg/dL Ionized Calcium Denzel (4.5-5.3) mg/dL Magnesium (1.6-2.3) mg/dL Total Bilirubin (0.2-1.3) mg/dL AST (14-36) U/L ALT (4-34) U/L Alkaline Phosphatase (38-126) U/L Total Protein (6.3-8.2) g/dL Albumin (3.5-5.0) g/dL Arterial Blood Potassium 3.3 L 5.0 H (3.4-4.5) mmol/L Arterial Blood Glucose 140 H 180 H 156 H (75-99) mg/dL Crossmatch 01/19/22 01/19/22 01/19/22 Range/Units 12:56 13:37 17:00 WBC (3.8-10.6) k/uL RBC (3.80-5.40) m/uL Hgb (11.4-16.0) gm/dL Hct (34.0-46.0) % Plt Count (150-450) k/uL Neutrophils # (1.3-7.7) k/uL Lymphocytes # (1.0-4.8) k/uL PT (9.0-12.0) sec INR (<1.2) APTT (22.0-30.0) sec Fibrinogen (200-500) mg/dL ABG pH 7.28 L (7.35-7.45) ABG pCO2 54 H (35-45) mmHg ABG pO2 279 H 368 H 129 H (83-108) mmHg ABG HCO3 26 H (21-25) mmol/L ABG Total CO2 26 H 26 H 27 H (19-24) mmol/L ABG O2 Saturation 99.8 H 99.9 H 99.1 H (94-97) % ABG Hematocrit 26 L 21 L (34.0-46.0) % ABG Potassium (3.4-4.5) mmol/L ABG Ionized Calcium 4.0 L 3.8 L (4.5-5.3) mg/dL ABG Glucose 154 H 147 H (75-99) mg/dL ABG Lactic Acid 3.6 H* 4.1 H* (0.5-1.6) mmol/L Hemoglobin 8.5 L 6.7 L* (11.4-16.0) gm/dL Potassium (3.5-5.1) mmol/L Chloride (98-107) mmol/L Carbon Dioxide (22-30) mmol/L BUN (7-17) mg/dL Creatinine (0.52-1.04) mg/dL Glucose (74-99) mg/dL POC Glucose (mg/dL) (70-110) mg/dL Calcium (8.4-10.2) mg/dL Ionized Calcium Denzel (4.5-5.3) mg/dL Magnesium (1.6-2.3) mg/dL Total Bilirubin (0.2-1.3) mg/dL AST (14-36) U/L ALT (4-34) U/L Alkaline Phosphatase (38-126) U/L Total Protein (6.3-8.2) g/dL Albumin (3.5-5.0) g/dL Arterial Blood Potassium (3.4-4.5) mmol/L Arterial Blood Glucose 154 H 147 H (75-99) mg/dL Crossmatch 01/19/22 01/19/22 01/19/22 Range/Units 17:00 17:04 17:04 WBC 14.8 H (3.8-10.6) k/uL RBC 2.86 L (3.80-5.40) m/uL Hgb 8.4 L D (11.4-16.0) gm/dL Hct 25.4 L (34.0-46.0) % Plt Count 75 L D (150-450) k/uL Neutrophils # 12.4 H (1.3-7.7) k/uL Lymphocytes # (1.0-4.8) k/uL PT 13.6 H (9.0-12.0) sec INR 1.3 H (<1.2) APTT 34.5 H (22.0-30.0) sec Fibrinogen (200-500) mg/dL ABG pH (7.35-7.45) ABG pCO2 (35-45) mmHg ABG pO2 (83-108) mmHg ABG HCO3 (21-25) mmol/L ABG Total CO2 (19-24) mmol/L ABG O2 Saturation (94-97) % ABG Hematocrit (34.0-46.0) % ABG Potassium (3.4-4.5) mmol/L ABG Ionized Calcium (4.5-5.3) mg/dL ABG Glucose (75-99) mg/dL ABG Lactic Acid (0.5-1.6) mmol/L Hemoglobin (11.4-16.0) gm/dL Potassium (3.5-5.1) mmol/L Chloride (98-107) mmol/L Carbon Dioxide (22-30) mmol/L BUN (7-17) mg/dL Creatinine (0.52-1.04) mg/dL Glucose (74-99) mg/dL POC Glucose (mg/dL) 183 H (70-110) mg/dL Calcium (8.4-10.2) mg/dL Ionized Calcium Denzel (4.5-5.3) mg/dL Magnesium (1.6-2.3) mg/dL Total Bilirubin (0.2-1.3) mg/dL AST (14-36) U/L ALT (4-34) U/L Alkaline Phosphatase (38-126) U/L Total Protein (6.3-8.2) g/dL Albumin (3.5-5.0) g/dL Arterial Blood Potassium (3.4-4.5) mmol/L Arterial Blood Glucose (75-99) mg/dL Crossmatch 01/19/22 01/19/22 01/19/22 Range/Units 17:04 18:03 18:59 WBC (3.8-10.6) k/uL RBC (3.80-5.40) m/uL Hgb (11.4-16.0) gm/dL Hct (34.0-46.0) % Plt Count (150-450) k/uL Neutrophils # (1.3-7.7) k/uL Lymphocytes # (1.0-4.8) k/uL PT (9.0-12.0) sec INR (<1.2) APTT (22.0-30.0) sec Fibrinogen (200-500) mg/dL ABG pH (7.35-7.45) ABG pCO2 (35-45) mmHg ABG pO2 (83-108) mmHg ABG HCO3 (21-25) mmol/L ABG Total CO2 (19-24) mmol/L ABG O2 Saturation (94-97) % ABG Hematocrit (34.0-46.0) % ABG Potassium (3.4-4.5) mmol/L ABG Ionized Calcium (4.5-5.3) mg/dL ABG Glucose (75-99) mg/dL ABG Lactic Acid (0.5-1.6) mmol/L Hemoglobin (11.4-16.0) gm/dL Potassium 3.3 L (3.5-5.1) mmol/L Chloride 108 H (98-107) mmol/L Carbon Dioxide (22-30) mmol/L BUN 25 H (7-17) mg/dL Creatinine (0.52-1.04) mg/dL Glucose 161 H (74-99) mg/dL POC Glucose (mg/dL) 150 H 159 H (70-110) mg/dL Calcium 7.1 L (8.4-10.2) mg/dL Ionized Calcium Denzel 3.9 L (4.5-5.3) mg/dL Magnesium 2.8 H (1.6-2.3) mg/dL Total Bilirubin 1.4 H (0.2-1.3) mg/dL AST 87 H (14-36) U/L ALT (4-34) U/L Alkaline Phosphatase 29 L (38-126) U/L Total Protein 4.0 L (6.3-8.2) g/dL Albumin 2.6 L (3.5-5.0) g/dL Arterial Blood Potassium (3.4-4.5) mmol/L Arterial Blood Glucose (75-99) mg/dL Crossmatch 01/19/22 01/19/22 01/19/22 Range/Units 19:00 20:04 21:07 WBC 11.5 H (3.8-10.6) k/uL RBC 2.29 L (3.80-5.40) m/uL Hgb 7.2 L (11.4-16.0) gm/dL Hct 20.3 L (34.0-46.0) % Plt Count 71 L (150-450) k/uL Neutrophils # 9.9 H (1.3-7.7) k/uL Lymphocytes # 0.8 L (1.0-4.8) k/uL PT (9.0-12.0) sec INR (<1.2) APTT (22.0-30.0) sec Fibrinogen (200-500) mg/dL ABG pH (7.35-7.45) ABG pCO2 (35-45) mmHg ABG pO2 (83-108) mmHg ABG HCO3 (21-25) mmol/L ABG Total CO2 (19-24) mmol/L ABG O2 Saturation (94-97) % ABG Hematocrit (34.0-46.0) % ABG Potassium (3.4-4.5) mmol/L ABG Ionized Calcium (4.5-5.3) mg/dL ABG Glucose (75-99) mg/dL ABG Lactic Acid (0.5-1.6) mmol/L Hemoglobin (11.4-16.0) gm/dL Potassium (3.5-5.1) mmol/L Chloride (98-107) mmol/L Carbon Dioxide (22-30) mmol/L BUN (7-17) mg/dL Creatinine (0.52-1.04) mg/dL Glucose (74-99) mg/dL POC Glucose (mg/dL) 148 H 168 H (70-110) mg/dL Calcium (8.4-10.2) mg/dL Ionized Calcium Denzel (4.5-5.3) mg/dL Magnesium (1.6-2.3) mg/dL Total Bilirubin (0.2-1.3) mg/dL AST (14-36) U/L ALT (4-34) U/L Alkaline Phosphatase (38-126) U/L Total Protein (6.3-8.2) g/dL Albumin (3.5-5.0) g/dL Arterial Blood Potassium (3.4-4.5) mmol/L Arterial Blood Glucose (75-99) mg/dL Crossmatch 01/19/22 01/19/22 01/19/22 Range/Units 21:15 21:15 22:22 WBC (3.8-10.6) k/uL RBC 2.02 L (3.80-5.40) m/uL Hgb 6.0 L* (11.4-16.0) gm/dL Hct 18.1 L* (34.0-46.0) % Plt Count 104 L (150-450) k/uL Neutrophils # 8.3 H (1.3-7.7) k/uL Lymphocytes # 0.7 L (1.0-4.8) k/uL PT (9.0-12.0) sec INR (<1.2) APTT (22.0-30.0) sec Fibrinogen 146 L (200-500) mg/dL ABG pH (7.35-7.45) ABG pCO2 (35-45) mmHg ABG pO2 (83-108) mmHg ABG HCO3 (21-25) mmol/L ABG Total CO2 (19-24) mmol/L ABG O2 Saturation (94-97) % ABG Hematocrit (34.0-46.0) % ABG Potassium (3.4-4.5) mmol/L ABG Ionized Calcium (4.5-5.3) mg/dL ABG Glucose (75-99) mg/dL ABG Lactic Acid (0.5-1.6) mmol/L Hemoglobin (11.4-16.0) gm/dL Potassium (3.5-5.1) mmol/L Chloride (98-107) mmol/L Carbon Dioxide (22-30) mmol/L BUN (7-17) mg/dL Creatinine (0.52-1.04) mg/dL Glucose (74-99) mg/dL POC Glucose (mg/dL) 136 H (70-110) mg/dL Calcium (8.4-10.2) mg/dL Ionized Calcium Denzel (4.5-5.3) mg/dL Magnesium (1.6-2.3) mg/dL Total Bilirubin (0.2-1.3) mg/dL AST (14-36) U/L ALT (4-34) U/L Alkaline Phosphatase (38-126) U/L Total Protein (6.3-8.2) g/dL Albumin (3.5-5.0) g/dL Arterial Blood Potassium (3.4-4.5) mmol/L Arterial Blood Glucose (75-99) mg/dL Crossmatch 01/19/22 01/20/22 01/20/22 Range/Units 23:16 01:28 03:00 WBC 10.8 H (3.8-10.6) k/uL RBC 2.46 L (3.80-5.40) m/uL Hgb 7.4 L (11.4-16.0) gm/dL Hct 22.1 L (34.0-46.0) % Plt Count 103 L (150-450) k/uL Neutrophils # 8.8 H (1.3-7.7) k/uL Lymphocytes # (1.0-4.8) k/uL PT (9.0-12.0) sec INR (<1.2) APTT (22.0-30.0) sec Fibrinogen (200-500) mg/dL ABG pH (7.35-7.45) ABG pCO2 (35-45) mmHg ABG pO2 (83-108) mmHg ABG HCO3 (21-25) mmol/L ABG Total CO2 (19-24) mmol/L ABG O2 Saturation (94-97) % ABG Hematocrit (34.0-46.0) % ABG Potassium (3.4-4.5) mmol/L ABG Ionized Calcium (4.5-5.3) mg/dL ABG Glucose (75-99) mg/dL ABG Lactic Acid (0.5-1.6) mmol/L Hemoglobin (11.4-16.0) gm/dL Potassium (3.5-5.1) mmol/L Chloride (98-107) mmol/L Carbon Dioxide (22-30) mmol/L BUN (7-17) mg/dL Creatinine (0.52-1.04) mg/dL Glucose (74-99) mg/dL POC Glucose (mg/dL) 123 H 120 H (70-110) mg/dL Calcium (8.4-10.2) mg/dL Ionized Calcium Denzel (4.5-5.3) mg/dL Magnesium (1.6-2.3) mg/dL Total Bilirubin (0.2-1.3) mg/dL AST (14-36) U/L ALT (4-34) U/L Alkaline Phosphatase (38-126) U/L Total Protein (6.3-8.2) g/dL Albumin (3.5-5.0) g/dL Arterial Blood Potassium (3.4-4.5) mmol/L Arterial Blood Glucose (75-99) mg/dL Crossmatch 01/20/22 01/20/22 01/20/22 Range/Units 03:00 03:00 03:50 WBC (3.8-10.6) k/uL RBC (3.80-5.40) m/uL Hgb (11.4-16.0) gm/dL Hct (34.0-46.0) % Plt Count (150-450) k/uL Neutrophils # (1.3-7.7) k/uL Lymphocytes # (1.0-4.8) k/uL PT (9.0-12.0) sec INR (<1.2) APTT (22.0-30.0) sec Fibrinogen (200-500) mg/dL ABG pH 7.29 L (7.35-7.45) ABG pCO2 (35-45) mmHg ABG pO2 109 H (83-108) mmHg ABG HCO3 18 L (21-25) mmol/L ABG Total CO2 (19-24) mmol/L ABG O2 Saturation 99.0 H (94-97) % ABG Hematocrit (34.0-46.0) % ABG Potassium (3.4-4.5) mmol/L ABG Ionized Calcium (4.5-5.3) mg/dL ABG Glucose (75-99) mg/dL ABG Lactic Acid (0.5-1.6) mmol/L Hemoglobin (11.4-16.0) gm/dL Potassium (3.5-5.1) mmol/L Chloride 111 H (98-107) mmol/L Carbon Dioxide 19 L (22-30) mmol/L BUN 27 H (7-17) mg/dL Creatinine 1.20 H (0.52-1.04) mg/dL Glucose (74-99) mg/dL POC Glucose (mg/dL) 112 H (70-110) mg/dL Calcium 7.8 L (8.4-10.2) mg/dL Ionized Calcium Denzel (4.5-5.3) mg/dL Magnesium 2.6 H (1.6-2.3) mg/dL Total Bilirubin (0.2-1.3) mg/dL AST 504 H (14-36) U/L ALT 275 H (4-34) U/L Alkaline Phosphatase 36 L (38-126) U/L Total Protein 4.3 L (6.3-8.2) g/dL Albumin 3.0 L (3.5-5.0) g/dL Arterial Blood Potassium (3.4-4.5) mmol/L Arterial Blood Glucose (75-99) mg/dL Crossmatch 01/20/22 01/20/22 01/20/22 Range/Units 05:55 06:36 08:07 WBC (3.8-10.6) k/uL RBC (3.80-5.40) m/uL Hgb (11.4-16.0) gm/dL Hct (34.0-46.0) % Plt Count (150-450) k/uL Neutrophils # (1.3-7.7) k/uL Lymphocytes # (1.0-4.8) k/uL PT (9.0-12.0) sec INR (<1.2) APTT (22.0-30.0) sec Fibrinogen (200-500) mg/dL ABG pH 7.34 L (7.35-7.45) ABG pCO2 (35-45) mmHg ABG pO2 (83-108) mmHg ABG HCO3 20 L (21-25) mmol/L ABG Total CO2 (19-24) mmol/L ABG O2 Saturation 98.1 H (94-97) % ABG Hematocrit (34.0-46.0) % ABG Potassium (3.4-4.5) mmol/L ABG Ionized Calcium (4.5-5.3) mg/dL ABG Glucose (75-99) mg/dL ABG Lactic Acid (0.5-1.6) mmol/L Hemoglobin (11.4-16.0) gm/dL Potassium (3.5-5.1) mmol/L Chloride (98-107) mmol/L Carbon Dioxide (22-30) mmol/L BUN (7-17) mg/dL Creatinine (0.52-1.04) mg/dL Glucose (74-99) mg/dL POC Glucose (mg/dL) 125 H 117 H (70-110) mg/dL Calcium (8.4-10.2) mg/dL Ionized Calcium Denzel (4.5-5.3) mg/dL Magnesium (1.6-2.3) mg/dL Total Bilirubin (0.2-1.3) mg/dL AST (14-36) U/L ALT (4-34) U/L Alkaline Phosphatase (38-126) U/L Total Protein (6.3-8.2) g/dL Albumin (3.5-5.0) g/dL Arterial Blood Potassium (3.4-4.5) mmol/L Arterial Blood Glucose (75-99) mg/dL Crossmatch - Imaging and Cardiology Chest x-ray: report reviewed, image reviewed Assessment and Plan Assessment: 1. Severe triple-vessel coronary artery disease with left main disease and evidence of old anteroapical myocardial infarction, non-STEMI this admission, status post four-vessel CABG 2. Moderate left ventricular dysfunction 3. Moderate aortic valve stenosis, status post bioprosthetic aortic valve replacement 4. Acute on chronic diastolic heart failure this admission, EF 50-55% on transthoracic echocardiogram 5. Shortness of breath on admission, secondary to above 6. History of CAD and myocardial infarction in April 2021 with stent placement to left circumflex and left anterior descending coronary arteries, last dose of Plavix 01/16/2022 7. Paroxysmal atrial fibrillation on Eliqius for anticoagulation outpatient, last dose 01/13/2022, status post bilateral pulmonary vein isolation and left atrial appendage ligation 8. History of hypertension, currently hypotensive requiring pressor use, intra- aortic balloon pump in place 9. Hyperlipidemia, treated, cholesterol 151, LDL 64.4, triglycerides 302 10. Diabetes mellitus type 2, preoperative hemoglobin A1c 7.1% 11. Renal insufficiency, baseline creatinine is 1.2-1.3 12. Clear cell renal cell carcinoma with right sided renal mass removed in November 2021 13. Peripheral arterial disease, CALI 0.94 on the right, 0.93 on the left 14. Family history of coronary artery disease 15. Never smoker, preoperative FEV1 98% of predicted 16. Postoperative acute blood loss anemia and thrombocytopenia, expected 17. Elevated transaminases, likely due to hypotension Plan: 1. Continue to maximize medical management with low-dose aspirin, Plavix. Beta tito on hold due to hypotension. Statin on hold due to elevated over enzymes 2. Will continue intra-aortic balloon pump and mechanical ventilation for another 24 hours 3. Will wean pressors as tolerated 4. Will monitor daily labs and x-rays. Electro replacement per protocol. We will give one amp sodium bicarb, 1 g calcium gluconate this morning. Will trend lactic acid. Will give another unit PRBCs 5. Will obtain echo to evaluate left and right ventricular function 6. Mechanical ventilator management, bronchodilators per pulmonology 7. Insulin management per internal medicine, should remain on insulin drip for another 24 hours minimum 8. GI/DVT prophylaxis 9. Continue [place]foot/Cordis, mediastinal/right/left pleural chest tubes 10. Continue Porter catheter for another 24 hours for strict intake and output 11. Will discontinue FUNMI drains 12. Family updated. Patient remains critically ill 13. More recommendations to follow based on patient's clinical course.
[2022-01-20 09:11] LABS: Glucose,Whole Blood 111 mg/dL (70-110)
[2022-01-20] MEDS: MUPIROCIN 2% OINT 22 GM TUBE NASAL SCH (10:21)
[2022-01-20 10:31] LABS: Glucose,Whole Blood 94 mg/dL (70-110)
[2022-01-20] MEDS ORDERED: NITROGLYCERIN SL TABS 0.4 MG TAB SUBLINGUAL PRN (10:33)
--- NOTE | 2022-01-20 11:31 | CA ---
Transthoracic Echo Report Name: Jessica Perez Age: 77 Gender: F : 1945 Exam Date: 01/20/2022 09:23 Exam Location: [facility] Ht (in): 60 Wt (lb): 175 Ordering Physician: Melissa Hampton Attending/Referring Phys: [id number], [employer] Danika Roberts RDCS Procedure CPT: Indications: eval LV, RV, pericardium Cardiac Hx: Technical Quality: Contrast 1: Total Dose (mL): Contrast 2: Total Dose (mL): MEASUREMENTS (Male / Female) Normal Values FINDINGS Left Ventricle Left ventricular ejection fraction is estimated at 45-50% . Echo contrast was used. There is a partial filling defect in area where there is good wall motion suggesting that this does not represent a thrombus. Right Ventricle Right Atrium Left Atrium Mitral Valve Aortic Valve Tricuspid Valve Pulmonic Valve Pericardium Moderate Pericardial effusion. Aorta CONCLUSIONS Fairly well-preserved systolic function with ejection fraction of 45-50%. No clearcut evidence to suggest intraventricular thrombus. Moderate pericardial effusion Previewed by: Dr. Dayne Johnson MD (Electronically Signed) Final Date: 20 January 2022 11:30
--- NOTE | 2022-01-20 12:01 | P.PN ---
Subjective Progress Note Date: 01/20/22 Principal diagnosis: Severe triple-vessel coronary artery disease, postoperative day #1, quadruple coronary artery bypass grafting this is a 77-year-old female, known history of hypertension, dyslipidemia, diabetes type 2, coronary artery disease and previous stenting, congestive heart failure, paroxysmal atrial fibrillation, patient was recently seen in my office and I clear the patient for nephrectomy as she was found to have a renal mass consistent with renal cell carcinoma. Patient underwent uneventful surgery, however on previous admission on 11/29/21, patient had non-ST elevation myocardial infarction and elevated troponin. She was also found to have low ejection fraction of 45%. As well as moderate aortic stenosis.patient was seen by cardiology on this admission 01/13/22,underwent cardiac catheterization, and she was found to havetriple-vessel coronary artery disease, her other medical problems included a non-ST elevation myocardial infarction on this admission, and paroxysmal atrial fibrillation, patient was seen bycardiothoracic surgery on consultation, and the patient will be undergoing by cardiac revascularization, early next week, patient had a recent PFT in my office, and it was unremarkable, she had no previous history of COPD, and I am clearing her for surgery as scheduled.CT of the chest done on this admission showed nonspecific pulmonary nodules which will need to be monitored on outpatient basis. Reevaluated today on 01/18/22, patient is doing well, undergoing preoperative workup for potential CABG. No active pulmonary symptoms, no cough no wheezing no shortness of breath, I saw the patient yesterday and cleared for surgery as s lit. Patient was reevaluated today on 01/20/22, yesterday the patient underwent quadruple coronary artery bypass graftingusing the left internal mammary artery to the left anterior descending artery, left radial artery from the aorta to the first obtuse marginal artery, reverse saphenous vein graft from the aorta to the third obtuse marginal artery, reverse saphenous vein graft from the aorta to the posterior descending artery, aortic valve replacement using a 21 mm Inspiris pericardial bioprosthesis, bilateral pulmonary vein isolation using a bipolar radiofrequency clamp from AtriCure, exclusion of the left atrial appendage using a 35 mm AtriClip, insertion of intra-aortic balloon pump, graft flow measurements using the Mal[employer]uIQ system, intraoperative transesophageal echocardiogram and epi-aortic scanning, postoperatively the patient was noted to have significant blood loss anemia and thrombocytopenia, received significant amount of blood products patient received so far a total of 4 units of packed RBCs, 2 units of fresh was a plasma, 2 units of platelets, and 1 unit of port c ryoprecipitate. Her hemoglobin today is 7.4, had initial hemoglobin prior to surgery was in the range of 13. Patient came back with hemodynamic issues also requiring intra-aortic balloon pump placement. Presently remains on significant amount of inotropes and pressors. And the patient continues to have intra- aortic balloon pump, she is being considered for placement of impella device. Awaiting evaluation by cardiology for decision. In the meantime the patient is now on assist control rate of 16 tidal volume 450 FiO2 60% PEEP of 5. ABG showed a pO2 of 95 pCO2 37 pH of 7.34. Patient had a cardiac output of 3.4 and cardiac index of 2.1. Her lactic acid is 9.4, urine output is roughly about 20 mL per hour. She is on norepinephrine at 0.25 mcg/kg/m also on Primacor at 0.3 mcg/kg/m, epinephrine 0.03 insulin 7.5 units per hour propofol at 20 mcg/kg/m patient has a right sided chest tube drained about 380 overnight, mediastinal tube drained 290 mL overnight and the left pleural chest tube drained 1030 overnight. Obviously the patient is nowhere near weaning, and she is not ready for any weaning trials at this point. Chest x-ray showed no evidence of infiltrate, she does have left basilar atelectasis, some component of pulmonary edema/interstitial edema however chest x-ray today is improved compared to the chest x-ray yesterday all lines and catheters were noted on the chest x-ray Objective - Vital Signs Vital signs: Vital Signs Temp 37.1 F L 01/20/22 10:31 Pulse 105 H 01/20/22 10:31 Resp 16 01/20/22 10:31 BP 96/36 01/20/22 10:31 Pulse Ox 95 01/20/22 10:31 FiO2 60 01/20/22 07:45 Intake & Output 01/19/22 01/20/22 01/20/22 18:59 06:59 18:59 Intake Total 2045.484 4657.279 950.269 Output Total 5290 1507 158 Balance -3244.516 3150.279 792.269 Weight 79.4 kg Intake: IV 4 1650 610 Albumin Human 5% 250 ml 500 250 In Empty Bag 1 bag @ 250 mls/hr IVPB Q1HR PRN Rx#: [id number] CO/CI 250 60 Calcium Gluconate in NaCl 100 100 2 gm In Saline 1 100ml. bag @ 100 mls/hr IVPB ONCE PRN Rx#:[id number] Potassium Chloride 20 meq 200 100 In Water For Injection 1 100ml.bag @ 50 mls/hr IVPB Q2H [facility] Rx#: [id number] Sodium Chloride 0.9% 1, 600 100 000 ml @ 50 mls/hr IV . Q20H [facility] Rx#:[id number] Intake, IV Titration 558.404 7031.279 340.269 Amount ACETAMINOPHEN IV (For NPO 100 ) 1,000 mg In Empty Bag 1 bag @ 400 mls/hr IVPB Q6HR [facility] Rx#:[id number] Albumin Human 5% 250 ml 250 250 In Empty Bag 1 bag @ 250 mls/hr IVPB Q1HR PRN Rx#: [id number] EPINEPHrine 4 mg In 2.785 24.939 Dextrose 5% in Water 250 ml @ 0.03 MCG/KG/MIN 7. 481 mls/hr IV .Q24H [facility] Rx#:[id number] Insulin Regular 100 unit 10.942 77.938 12.12 In Sodium Chloride 0.9% 100 ml @ Per Protocol IV .Q0M [facility] Rx#:[id number] Milrinone-D5w Pmx 20 mg 14.8 103.157 In Dextrose/Water 1 100ml .bag @ 0.3 MCG/KG/MIN 5. 985 mls/hr IV .[id number] [facility] Rx#:[id number] Nitroglycerin-D5w Pmx 50 3.0 1.5 mg In Dextrose/Water 1 250ml.bag @ 5 MCG/MIN 1.5 mls/hr IV .Q24H [facility] Rx#: [id number] Norepinephrine 4 mg In 65.742 410.665 254.000 Sodium Chloride 0.9% 250 ml @ 0.03 MCG/KG/MIN 7. 601 mls/hr IV .Q24H [facility] Rx#:[id number] Sodium Chloride 0.9% 1, 50 50 000 ml @ 50 mls/hr IV . Q20H [facility] Rx#:[id number] ceFAZolin 1,000 mg In 50 Sodium Chloride 0.9% 50 ml @ 100 mls/hr IVPB Q8HR [facility] Rx#:[id number] propofoL 1,000 mg In 32 175.234 49.21 Empty Bag 1 bag @ Titrate IV .Q0M [facility] Rx#: [id number] Blood Product 1565 1836 0 Unit 0 Ffp 24 Cpd Unit 345 [id number] Ffp 24 Cpd Unit 315 [id number] Platelet Pheresis Pas 285 Psoralen Unit [id number] Platelet Pheresis Pas 286 Psoralen Unit [id number] Pooled Cryoprecipitate 80 Unit [id number] Rc As-1 Unit 310 [id number] Rc As-1 Unit 310 [id number] Rc As-1 Unit 310 [id number] Rc As-1 Unit 310 [id number] Output: Chest Tube Drainage 550 1090 120 Left Pleural [address] X2 160 100 30 Right Pleural 150 200 40 Drainage 30 40 Left Arm 20 Left Calf 30 20 Urine 710 377 38 Estimated Blood Loss 4000 Other: Voiding Method Indwelling Catheter Indwelling Catheter ABP, PAP, CO, CI - Last Documented Arterial Blood Pressure 114/37 Pulmonary Artery Pressure 33/23 Cardiac Output 3.4 Cardiac Index 2.0 - Exam Physical Exam: Revealed a 77-year-old female intubated mechanically ventilated sedated Head: Atraumatic, normocephalic. Right IJ Sublette/Cordis noted HEENT:[Neck is supple.] [No neck masses.] [No thyromegaly.] [No JVD.] Endotracheal tube and orogastric tube are noted. Chest: [Clear throughout, no crackles, no rhonchi, no wheezes.] Chest tubes and mediastinal tubes were also noted. Cardiac Exam: [Normal S1 and S2, no S3 gallop, pericardial rub is noted. Abdomen: [Soft, nontender, no megaly, no rebound, no guarding, normal bowel sounds.] Extremities: [No clubbing, no edema, no cyanosis.] Neurological Exam: Cannot assess patient is sedated Psychiatric: Could not assess - Labs CBC & Chem 7: 01/20/22 03:00 01/20/22 03:00 Labs: Abnormal Lab Results - Last 24 Hours (Table) 11/01/19/22 01/19/22 Range/Units 15:10 08:40 10:04 WBC (3.8-10.6) k/uL RBC (3.80-5.40) m/uL Hgb (11.4-16.0) gm/dL Hct (34.0-46.0) % Plt Count (150-450) k/uL Neutrophils # (1.3-7.7) k/uL Lymphocytes # (1.0-4.8) k/uL PT (9.0-12.0) sec INR (<1.2) APTT (22.0-30.0) sec Fibrinogen (200-500) mg/dL ABG pH 7.51 H (7.35-7.45) ABG pCO2 (35-45) mmHg ABG pO2 139 H >420 H (83-108) mmHg ABG HCO3 29 H 28 H (21-25) mmol/L ABG Total CO2 31 H 29 H (19-24) mmol/L ABG O2 Saturation 98.9 H 100.0 H (94-97) % ABG Hematocrit 33 L 33 L (34.0-46.0) % ABG Potassium (3.4-4.5) mmol/L ABG Ionized Calcium (4.5-5.3) mg/dL ABG Glucose 130 H 171 H (75-99) mg/dL ABG Lactic Acid (0.5-1.6) mmol/L Hemoglobin 10.9 L 10.7 L (11.4-16.0) gm/dL Potassium (3.5-5.1) mmol/L Chloride (98-107) mmol/L Carbon Dioxide (22-30) mmol/L BUN (7-17) mg/dL Creatinine (0.52-1.04) mg/dL Glucose (74-99) mg/dL POC Glucose (mg/dL) (70-110) mg/dL Calcium (8.4-10.2) mg/dL Ionized Calcium Ednzel (4.5-5.3) mg/dL Magnesium (1.6-2.3) mg/dL Total Bilirubin (0.2-1.3) mg/dL AST (14-36) U/L ALT (4-34) U/L Alkaline Phosphatase (38-126) U/L Total Protein (6.3-8.2) g/dL Albumin (3.5-5.0) g/dL Arterial Blood Potassium (3.4-4.5) mmol/L Arterial Blood Glucose 130 H 171 H (75-99) mg/dL Crossmatch See Detail 01/19/22 01/19/22 01/19/22 Range/Units 10:55 11:33 12:07 WBC (3.8-10.6) k/uL RBC (3.80-5.40) m/uL Hgb (11.4-16.0) gm/dL Hct (34.0-46.0) % Plt Count (150-450) k/uL Neutrophils # (1.3-7.7) k/uL Lymphocytes # (1.0-4.8) k/uL PT (9.0-12.0) sec INR (<1.2) APTT (22.0-30.0) sec Fibrinogen (200-500) mg/dL ABG pH 7.31 L (7.35-7.45) ABG pCO2 51 H (35-45) mmHg ABG pO2 397 H 314 H 328 H (83-108) mmHg ABG HCO3 26 H 26 H (21-25) mmol/L ABG Total CO2 26 H 27 H 27 H (19-24) mmol/L ABG O2 Saturation 100.0 H 99.6 H 99.8 H (94-97) % ABG Hematocrit 19 L* 25 L 24 L (34.0-46.0) % ABG Potassium 3.3 L 5.0 H (3.4-4.5) mmol/L ABG Ionized Calcium 3.9 L 4.1 L 4.0 L (4.5-5.3) mg/dL ABG Glucose 140 H 180 H 156 H (75-99) mg/dL ABG Lactic Acid 2.0 H 3.1 H* 2.8 H* (0.5-1.6) mmol/L Hemoglobin 6.3 L* 8.1 L 7.7 L (11.4-16.0) gm/dL Potassium (3.5-5.1) mmol/L Chloride (98-107) mmol/L Carbon Dioxide (22-30) mmol/L BUN (7-17) mg/dL Creatinine (0.52-1.04) mg/dL Glucose (74-99) mg/dL POC Glucose (mg/dL) (70-110) mg/dL Calcium (8.4-10.2) mg/dL Ionized Calcium Denzel (4.5-5.3) mg/dL Magnesium (1.6-2.3) mg/dL Total Bilirubin (0.2-1.3) mg/dL AST (14-36) U/L ALT (4-34) U/L Alkaline Phosphatase (38-126) U/L Total Protein (6.3-8.2) g/dL Albumin (3.5-5.0) g/dL Arterial Blood Potassium 3.3 L 5.0 H (3.4-4.5) mmol/L Arterial Blood Glucose 140 H 180 H 156 H (75-99) mg/dL Crossmatch 01/19/22 01/19/22 01/19/22 Range/Units 12:56 13:37 17:00 WBC (3.8-10.6) k/uL RBC (3.80-5.40) m/uL Hgb (11.4-16.0) gm/dL Hct (34.0-46.0) % Plt Count (150-450) k/uL Neutrophils # (1.3-7.7) k/uL Lymphocytes # (1.0-4.8) k/uL PT (9.0-12.0) sec INR (<1.2) APTT (22.0-30.0) sec Fibrinogen (200-500) mg/dL ABG pH 7.28 L (7.35-7.45) ABG pCO2 54 H (35-45) mmHg ABG pO2 279 H 368 H 129 H (83-108) mmHg ABG HCO3 26 H (21-25) mmol/L ABG Total CO2 26 H 26 H 27 H (19-24) mmol/L ABG O2 Saturation 99.8 H 99.9 H 99.1 H (94-97) % ABG Hematocrit 26 L 21 L (34.0-46.0) % ABG Potassium (3.4-4.5) mmol/L ABG Ionized Calcium 4.0 L 3.8 L (4.5-5.3) mg/dL ABG Glucose 154 H 147 H (75-99) mg/dL ABG Lactic Acid 3.6 H* 4.1 H* (0.5-1.6) mmol/L Hemoglobin 8.5 L 6.7 L* (11.4-16.0) gm/dL Potassium (3.5-5.1) mmol/L Chloride (98-107) mmol/L Carbon Dioxide (22-30) mmol/L BUN (7-17) mg/dL Creatinine (0.52-1.04) mg/dL Glucose (74-99) mg/dL POC Glucose (mg/dL) (70-110) mg/dL Calcium (8.4-10.2) mg/dL Ionized Calcium Denzel (4.5-5.3) mg/dL Magnesium (1.6-2.3) mg/dL Total Bilirubin (0.2-1.3) mg/dL AST (14-36) U/L ALT (4-34) U/L Alkaline Phosphatase (38-126) U/L Total Protein (6.3-8.2) g/dL Albumin (3.5-5.0) g/dL Arterial Blood Potassium (3.4-4.5) mmol/L Arterial Blood Glucose 154 H 147 H (75-99) mg/dL Crossmatch 01/19/22 01/19/22 01/19/22 Range/Units 17:00 17:04 17:04 WBC 14.8 H (3.8-10.6) k/uL RBC 2.86 L (3.80-5.40) m/uL Hgb 8.4 L D (11.4-16.0) gm/dL Hct 25.4 L (34.0-46.0) % Plt Count 75 L D (150-450) k/uL Neutrophils # 12.4 H (1.3-7.7) k/uL Lymphocytes # (1.0-4.8) k/uL PT 13.6 H (9.0-12.0) sec INR 1.3 H (<1.2) APTT 34.5 H (22.0-30.0) sec Fibrinogen (200-500) mg/dL ABG pH (7.35-7.45) ABG pCO2 (35-45) mmHg ABG pO2 (83-108) mmHg ABG HCO3 (21-25) mmol/L ABG Total CO2 (19-24) mmol/L ABG O2 Saturation (94-97) % ABG Hematocrit (34.0-46.0) % ABG Potassium (3.4-4.5) mmol/L ABG Ionized Calcium (4.5-5.3) mg/dL ABG Glucose (75-99) mg/dL ABG Lactic Acid (0.5-1.6) mmol/L Hemoglobin (11.4-16.0) gm/dL Potassium (3.5-5.1) mmol/L Chloride (98-107) mmol/L Carbon Dioxide (22-30) mmol/L BUN (7-17) mg/dL Creatinine (0.52-1.04) mg/dL Glucose (74-99) mg/dL POC Glucose (mg/dL) 183 H (70-110) mg/dL Calcium (8.4-10.2) mg/dL Ionized Calcium Denzel (4.5-5.3) mg/dL Magnesium (1.6-2.3) mg/dL Total Bilirubin (0.2-1.3) mg/dL AST (14-36) U/L ALT (4-34) U/L Alkaline Phosphatase (38-126) U/L Total Protein (6.3-8.2) g/dL Albumin (3.5-5.0) g/dL Arterial Blood Potassium (3.4-4.5) mmol/L Arterial Blood Glucose (75-99) mg/dL Crossmatch 01/19/22 01/19/22 01/19/22 Range/Units 17:04 18:03 18:59 WBC (3.8-10.6) k/uL RBC (3.80-5.40) m/uL Hgb (11.4-16.0) gm/dL Hct (34.0-46.0) % Plt Count (150-450) k/uL Neutrophils # (1.3-7.7) k/uL Lymphocytes # (1.0-4.8) k/uL PT (9.0-12.0) sec INR (<1.2) APTT (22.0-30.0) sec Fibrinogen (200-500) mg/dL ABG pH (7.35-7.45) ABG pCO2 (35-45) mmHg ABG pO2 (83-108) mmHg ABG HCO3 (21-25) mmol/L ABG Total CO2 (19-24) mmol/L ABG O2 Saturation (94-97) % ABG Hematocrit (34.0-46.0) % ABG Potassium (3.4-4.5) mmol/L ABG Ionized Calcium (4.5-5.3) mg/dL ABG Glucose (75-99) mg/dL ABG Lactic Acid (0.5-1.6) mmol/L Hemoglobin (11.4-16.0) gm/dL Potassium 3.3 L (3.5-5.1) mmol/L Chloride 108 H (98-107) mmol/L Carbon Dioxide (22-30) mmol/L BUN 25 H (7-17) mg/dL Creatinine (0.52-1.04) mg/dL Glucose 161 H (74-99) mg/dL POC Glucose (mg/dL) 150 H 159 H (70-110) mg/dL Calcium 7.1 L (8.4-10.2) mg/dL Ionized Calcium Denzel 3.9 L (4.5-5.3) mg/dL Magnesium 2.8 H (1.6-2.3) mg/dL Total Bilirubin 1.4 H (0.2-1.3) mg/dL AST 87 H (14-36) U/L ALT (4-34) U/L Alkaline Phosphatase 29 L (38-126) U/L Total Protein 4.0 L (6.3-8.2) g/dL Albumin 2.6 L (3.5-5.0) g/dL Arterial Blood Potassium (3.4-4.5) mmol/L Arterial Blood Glucose (75-99) mg/dL Crossmatch 01/19/22 01/19/22 01/19/22 Range/Units 19:00 20:04 21:07 WBC 11.5 H (3.8-10.6) k/uL RBC 2.29 L (3.80-5.40) m/uL Hgb 7.2 L (11.4-16.0) gm/dL Hct 20.3 L (34.0-46.0) % Plt Count 71 L (150-450) k/uL Neutrophils # 9.9 H (1.3-7.7) k/uL Lymphocytes # 0.8 L (1.0-4.8) k/uL PT (9.0-12.0) sec INR (<1.2) APTT (22.0-30.0) sec Fibrinogen (200-500) mg/dL ABG pH (7.35-7.45) ABG pCO2 (35-45) mmHg ABG pO2 (83-108) mmHg ABG HCO3 (21-25) mmol/L ABG Total CO2 (19-24) mmol/L ABG O2 Saturation (94-97) % ABG Hematocrit (34.0-46.0) % ABG Potassium (3.4-4.5) mmol/L ABG Ionized Calcium (4.5-5.3) mg/dL ABG Glucose (75-99) mg/dL ABG Lactic Acid (0.5-1.6) mmol/L Hemoglobin (11.4-16.0) gm/dL Potassium (3.5-5.1) mmol/L Chloride (98-107) mmol/L Carbon Dioxide (22-30) mmol/L BUN (7-17) mg/dL Creatinine (0.52-1.04) mg/dL Glucose (74-99) mg/dL POC Glucose (mg/dL) 148 H 168 H (70-110) mg/dL Calcium (8.4-10.2) mg/dL Ionized Calcium Denzel (4.5-5.3) mg/dL Magnesium (1.6-2.3) mg/dL Total Bilirubin (0.2-1.3) mg/dL AST (14-36) U/L ALT (4-34) U/L Alkaline Phosphatase (38-126) U/L Total Protein (6.3-8.2) g/dL Albumin (3.5-5.0) g/dL Arterial Blood Potassium (3.4-4.5) mmol/L Arterial Blood Glucose (75-99) mg/dL Crossmatch 01/19/22 01/19/22 01/19/22 Range/Units 21:15 21:15 22:22 WBC (3.8-10.6) k/uL RBC 2.02 L (3.80-5.40) m/uL Hgb 6.0 L* (11.4-16.0) gm/dL Hct 18.1 L* (34.0-46.0) % Plt Count 104 L (150-450) k/uL Neutrophils # 8.3 H (1.3-7.7) k/uL Lymphocytes # 0.7 L (1.0-4.8) k/uL PT (9.0-12.0) sec INR (<1.2) APTT (22.0-30.0) sec Fibrinogen 146 L (200-500) mg/dL ABG pH (7.35-7.45) ABG pCO2 (35-45) mmHg ABG pO2 (83-108) mmHg ABG HCO3 (21-25) mmol/L ABG Total CO2 (19-24) mmol/L ABG O2 Saturation (94-97) % ABG Hematocrit (34.0-46.0) % ABG Potassium (3.4-4.5) mmol/L ABG Ionized Calcium (4.5-5.3) mg/dL ABG Glucose (75-99) mg/dL ABG Lactic Acid (0.5-1.6) mmol/L Hemoglobin (11.4-16.0) gm/dL Potassium (3.5-5.1) mmol/L Chloride (98-107) mmol/L Carbon Dioxide (22-30) mmol/L BUN (7-17) mg/dL Creatinine (0.52-1.04) mg/dL Glucose (74-99) mg/dL POC Glucose (mg/dL) 136 H (70-110) mg/dL Calcium (8.4-10.2) mg/dL Ionized Calcium Denzel (4.5-5.3) mg/dL Magnesium (1.6-2.3) mg/dL Total Bilirubin (0.2-1.3) mg/dL AST (14-36) U/L ALT (4-34) U/L Alkaline Phosphatase (38-126) U/L Total Protein (6.3-8.2) g/dL Albumin (3.5-5.0) g/dL Arterial Blood Potassium (3.4-4.5) mmol/L Arterial Blood Glucose (75-99) mg/dL Crossmatch 01/19/22 01/20/22 01/20/22 Range/Units 23:16 01:28 03:00 WBC 10.8 H (3.8-10.6) k/uL RBC 2.46 L (3.80-5.40) m/uL Hgb 7.4 L (11.4-16.0) gm/dL Hct 22.1 L (34.0-46.0) % Plt Count 103 L (150-450) k/uL Neutrophils # 8.8 H (1.3-7.7) k/uL Lymphocytes # (1.0-4.8) k/uL PT (9.0-12.0) sec INR (<1.2) APTT (22.0-30.0) sec Fibrinogen (200-500) mg/dL ABG pH (7.35-7.45) ABG pCO2 (35-45) mmHg ABG pO2 (83-108) mmHg ABG HCO3 (21-25) mmol/L ABG Total CO2 (19-24) mmol/L ABG O2 Saturation (94-97) % ABG Hematocrit (34.0-46.0) % ABG Potassium (3.4-4.5) mmol/L ABG Ionized Calcium (4.5-5.3) mg/dL ABG Glucose (75-99) mg/dL ABG Lactic Acid (0.5-1.6) mmol/L Hemoglobin (11.4-16.0) gm/dL Potassium (3.5-5.1) mmol/L Chloride (98-107) mmol/L Carbon Dioxide (22-30) mmol/L BUN (7-17) mg/dL Creatinine (0.52-1.04) mg/dL Glucose (74-99) mg/dL POC Glucose (mg/dL) 123 H 120 H (70-110) mg/dL Calcium (8.4-10.2) mg/dL Ionized Calcium Denzel (4.5-5.3) mg/dL Magnesium (1.6-2.3) mg/dL Total Bilirubin (0.2-1.3) mg/dL AST (14-36) U/L ALT (4-34) U/L Alkaline Phosphatase (38-126) U/L Total Protein (6.3-8.2) g/dL Albumin (3.5-5.0) g/dL Arterial Blood Potassium (3.4-4.5) mmol/L Arterial Blood Glucose (75-99) mg/dL Crossmatch 01/20/22 01/20/22 01/20/22 Range/Units 03:00 03:00 03:50 WBC (3.8-10.6) k/uL RBC (3.80-5.40) m/uL Hgb (11.4-16.0) gm/dL Hct (34.0-46.0) % Plt Count (150-450) k/uL Neutrophils # (1.3-7.7) k/uL Lymphocytes # (1.0-4.8) k/uL PT (9.0-12.0) sec INR (<1.2) APTT (22.0-30.0) sec Fibrinogen (200-500) mg/dL ABG pH 7.29 L (7.35-7.45) ABG pCO2 (35-45) mmHg ABG pO2 109 H (83-108) mmHg ABG HCO3 18 L (21-25) mmol/L ABG Total CO2 (19-24) mmol/L ABG O2 Saturation 99.0 H (94-97) % ABG Hematocrit (34.0-46.0) % ABG Potassium (3.4-4.5) mmol/L ABG Ionized Calcium (4.5-5.3) mg/dL ABG Glucose (75-99) mg/dL ABG Lactic Acid (0.5-1.6) mmol/L Hemoglobin (11.4-16.0) gm/dL Potassium (3.5-5.1) mmol/L Chloride 111 H (98-107) mmol/L Carbon Dioxide 19 L (22-30) mmol/L BUN 27 H (7-17) mg/dL Creatinine 1.20 H (0.52-1.04) mg/dL Glucose (74-99) mg/dL POC Glucose (mg/dL) 112 H (70-110) mg/dL Calcium 7.8 L (8.4-10.2) mg/dL Ionized Calcium Denzel (4.5-5.3) mg/dL Magnesium 2.6 H (1.6-2.3) mg/dL Total Bilirubin (0.2-1.3) mg/dL AST 504 H (14-36) U/L ALT 275 H (4-34) U/L Alkaline Phosphatase 36 L (38-126) U/L Total Protein 4.3 L (6.3-8.2) g/dL Albumin 3.0 L (3.5-5.0) g/dL Arterial Blood Potassium (3.4-4.5) mmol/L Arterial Blood Glucose (75-99) mg/dL Crossmatch 01/20/22 01/20/22 01/20/22 Range/Units 05:55 06:36 08:05 WBC (3.8-10.6) k/uL RBC (3.80-5.40) m/uL Hgb (11.4-16.0) gm/dL Hct (34.0-46.0) % Plt Count (150-450) k/uL Neutrophils # (1.3-7.7) k/uL Lymphocytes # (1.0-4.8) k/uL PT (9.0-12.0) sec INR (<1.2) APTT (22.0-30.0) sec Fibrinogen (200-500) mg/dL ABG pH 7.34 L (7.35-7.45) ABG pCO2 (35-45) mmHg ABG pO2 (83-108) mmHg ABG HCO3 20 L (21-25) mmol/L ABG Total CO2 (19-24) mmol/L ABG O2 Saturation 98.1 H (94-97) % ABG Hematocrit (34.0-46.0) % ABG Potassium (3.4-4.5) mmol/L ABG Ionized Calcium (4.5-5.3) mg/dL ABG Glucose (75-99) mg/dL ABG Lactic Acid 9.4 H* (0.5-1.6) mmol/L Hemoglobin (11.4-16.0) gm/dL Potassium (3.5-5.1) mmol/L Chloride (98-107) mmol/L Carbon Dioxide (22-30) mmol/L BUN (7-17) mg/dL Creatinine (0.52-1.04) mg/dL Glucose (74-99) mg/dL POC Glucose (mg/dL) 125 H (70-110) mg/dL Calcium (8.4-10.2) mg/dL Ionized Calcium Denzel (4.5-5.3) mg/dL Magnesium (1.6-2.3) mg/dL Total Bilirubin (0.2-1.3) mg/dL AST (14-36) U/L ALT (4-34) U/L Alkaline Phosphatase (38-126) U/L Total Protein (6.3-8.2) g/dL Albumin (3.5-5.0) g/dL Arterial Blood Potassium (3.4-4.5) mmol/L Arterial Blood Glucose (75-99) mg/dL Crossmatch 01/20/22 01/20/22 Range/Units 08:07 09:00 WBC (3.8-10.6) k/uL RBC (3.80-5.40) m/uL Hgb (11.4-16.0) gm/dL Hct (34.0-46.0) % Plt Count (150-450) k/uL Neutrophils # (1.3-7.7) k/uL Lymphocytes # (1.0-4.8) k/uL PT (9.0-12.0) sec INR (<1.2) APTT (22.0-30.0) sec Fibrinogen (200-500) mg/dL ABG pH (7.35-7.45) ABG pCO2 (35-45) mmHg ABG pO2 (83-108) mmHg ABG HCO3 (21-25) mmol/L ABG Total CO2 (19-24) mmol/L ABG O2 Saturation (94-97) % ABG Hematocrit (34.0-46.0) % ABG Potassium (3.4-4.5) mmol/L ABG Ionized Calcium (4.5-5.3) mg/dL ABG Glucose (75-99) mg/dL ABG Lactic Acid (0.5-1.6) mmol/L Hemoglobin (11.4-16.0) gm/dL Potassium (3.5-5.1) mmol/L Chloride (98-107) mmol/L Carbon Dioxide (22-30) mmol/L BUN (7-17) mg/dL Creatinine (0.52-1.04) mg/dL Glucose (74-99) mg/dL POC Glucose (mg/dL) 117 H 111 H (70-110) mg/dL Calcium (8.4-10.2) mg/dL Ionized Calcium Denzel (4.5-5.3) mg/dL Magnesium (1.6-2.3) mg/dL Total Bilirubin (0.2-1.3) mg/dL AST (14-36) U/L ALT (4-34) U/L Alkaline Phosphatase (38-126) U/L Total Protein (6.3-8.2) g/dL Albumin (3.5-5.0) g/dL Arterial Blood Potassium (3.4-4.5) mmol/L Arterial Blood Glucose (75-99) mg/dL Crossmatch Assessment and Plan Assessment: impression: Triple-vessel coronary artery disease, status post four-vessel CABG postoperative day #1. Acute blood loss anemia, and thrombocytopenia expected., Patient required significant amount of blood products given as noted earlier in my note. Postoperative hypotension, multifactorial, mostly secondary to hypovolemia and cardiogenic in nature. Patient has severe LV dysfunction. Requiring inotropes and pressors. Coronary artery disease with previous history of PCI. Paroxysmal atrial fibrillation Benign essential hypertension. Type 2 diabetes. history of renal cell carcinoma, recent history of right-sided nephrectomy November 20. Strong family history of coronary artery disease. Elevated liver enzymes, suspect congestive hepatopathy recommendation: Patient is not very for any weaning at this point, hence we'll continue ventilatory support as above. Continue maximal medical therapy Continue ventilatory support. Continue hemodynamic support. Continue inotropes and pressors Continue to monitor CBC and hemoglobin, transfuse as needed maintaining hemoglobin above 7 Continue to monitor output from chest tubes and mediastinal tube Continue bronchodilators. Continue intra-aortic balloon pump for another 24 hours. Incentive spirometry after extubation We'll continue to follow in the ICU. Patient is critically ill. Critical care time is over 30 Time with Patient: Greater than 30
[2022-01-20] MEDS ORDERED: METOPROLOL TARTRATE 5 MG/5 ML VIAL IVP ONE ×2 (12:12→12:18)
[2022-01-20] MEDS ORDERED: HEPARIN SOD,PORK IN 0.45% NACL 25,000 UNIT in 0.45% NACL 1 250ML.BAG IV SCH ×2 (12:15→13:30)
[2022-01-20] MEDS ORDERED: HEPARIN SOD,PORK IN 0.45% NACL 25,000 UNIT in 0.45% NACL 1 250ML.BAG IV ONE (12:18)
[2022-01-20 12:44] VITALS: BP 99/32
[2022-01-20] MEDS ORDERED: HEPARIN SODIUM,PORCINE 30 ML 30 ML ONE (13:07)
[2022-01-20] MEDS ORDERED: AMIODARONE 50 MG/ML 3 ML VIAL IV ONE (13:25)
[2022-01-20] MEDS ORDERED: LIDOCAINE 2% SYG (PF) 100 MG/5 ML IV ONE (13:26)
[2022-01-20] MEDS ORDERED: SODIUM BICARB 8.4% 50 ML VIAL (1 MEQ/ML) IV ONE ×2 (13:27→13:45)
[2022-01-20] MEDS ORDERED: HEPARIN SODIUM,PORCINE 12,500 UNIT in DEXTROSE 5% IN WATER 500 ML IV SCH ×2 (13:30)
[2022-01-20] MEDS ORDERED: AMIODARONE 360 MG in DEXTROSE 5% IN WATER 200 ML IV ONE ×2 (13:42)
[2022-01-20] MEDS ORDERED: PHENYLEPHRINE 40 MG in SODIUM CHLORIDE 0.9% 250 ML IV SCH (13:45)
[2022-01-20 13:49] LABS: HCT 24.9 % (34.0-46.0); HGB 8.3 gm/dL (11.4-16.0); Hypochromasia Slight; MCH 30.1 pg (25.0-35.0); MCHC 33.4 g/dL (31.0-37.0); MCV 90.1 fL (80.0-100.0); Mean Platelet Volume 11.1; Poikilocytosis Slight; RBC 2.76 m/uL (3.80-5.40); RDW 15.2 % (11.5-15.5); WBC 12.4 k/uL (3.8-10.6)
[2022-01-20 13:59] LABS: Calcium 7.2 mg/dL (8.4-10.2); Potassium 4.2 mmol/L (3.5-5.1)
[2022-01-20 14:03] VITALS: BMI 33.0
[2022-01-20] MEDS ORDERED: NOREPINEPHRINE 8 MG in SODIUM CHLORIDE 0.9% 250 ML IV SCH (14:15)
[2022-01-20 14:30] LABS: ABG Base Excess -7.8 mmol/L; ABG HCO3 18 mmol/L (21-25); ABG Oxygen Saturation 99.7 % (94-97); ABG PCO2 33 mmHg (35-45); ABG PH 7.35 (7.35-7.45); ABG PO2 154 mmHg (83-108); ABG TCO2 19 mmol/L (19-24)
[2022-01-20 14:32] LABS: Allen Test Performed? no
[2022-01-20] MEDS: SODIUM BICARB 8.4% 50 ML SYR (1 MEQ/ML) IV ONE ×2 (14:37→14:39)
[2022-01-20 14:45] LABS: Lymphocytes # (M) 2.11 k/uL (1.0-4.8); Monocytes # (M) 0.99 k/uL (0-1.0); Neutrophils % (M) 75 %; Nucleated Red Blood Cells 0 /100 WBC (0-0); Total Cells Counted 100
[2022-01-20 14:46] LABS: Platelet Count 84 k/uL (150-450)
[2022-01-20 14:54] LABS: Glucose,Whole Blood 268 mg/dL (70-110)
[2022-01-20] MEDS: SODIUM CHLORIDE 0.9% 1,000 ML IV SCH (14:59)
[2022-01-20] MEDS ORDERED: DEXTROSE 5% IN WATER 100 ML with AMIODARONE 150 MG IV ONE (15:00)
[2022-01-20] MEDS: INSULIN REGULAR 100 UNIT in SODIUM CHLORIDE 0.9% 100 ML IV SCH (15:02)
[2022-01-20] MEDS: CLOPIDOGREL 75 MG TAB PO SCH (15:39)
--- NOTE | 2022-01-20 15:39 | P.DS ---
Providers Date of admission: 01/13/22 14:02 Expected date of discharge: 01/20/22 Attending physician: Ayala Delgado MD Consults: 01/13/22 12:55 Consult Physician Routine Consulting Provider: Roldan Nieto Consult Reason/Comments: heart failure Do you want consulting provider notified?: Yes 01/14/22 16:50 Consult Physician Routine Consulting Provider: Dale Green Consult Reason/Comments: left hand bump Do you want consulting provider notified?: Yes, Notify in am 01/16/22 08:37 Consult Physician Routine Consulting Provider: Malcolm Reynoso Consult Reason/Comments: CAD; evaluate for CABG Do you want consulting provider notified?: Yes 01/16/22 16:05 Consult Physician Routine Consulting Provider: Sadia Dietz Consult Reason/Comments: dental clearance pre cardiac surgery Do you want consulting provider notified?: Yes 01/16/22 16:06 Consult Physician Routine Consulting Provider: Dayna Carvajal Consult Reason/Comments: pulmonary management pre op cardiac surgery Do you want consulting provider notified?: Yes, Notify in am 01/18/22 13:39 Consult to Anesthesia Routine Consulting Provider: Anesthesia,Services Consult Reason/Comments: Cardiac Surgery Pre-Op 01/19/22 16:03 Consult Physician Routine Consulting Provider: Ayala Delgado Consult Reason/Comments: med mgmt Do you want consulting provider notified?: Already Contacted Primary care physician: Haritha Shauna [facility] Course: Severe triple-vessel coronary artery disease with left main disease with evidence of old anteroapical myocardial infarction, non-STEMI this admission, moderate left ventricular dysfunction, acute and chronic diastolic heart failure this admission, moderate aortic valve stenosis. 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, peripheral arterial disease, and family history of coronary artery disease POD #1 quadruple coronary artery bypass grafting using the left internal mammary artery to the left anterior descending artery, left radial artery from the aorta to the first obtuse marginal artery, reverse saphenous vein graft from the aorta to the third obtuse marginal artery, reverse saphenous vein graft from the aorta to the posterior descending artery, aortic valve replacement using a 21 mm Inspiris pericardial bioprosthesis, bilateral pulmonary vein isolation using a bipolar radiofrequency clamp from [employer], exclusion of the left atrial appendage using a 35 mm AtriClip, insertion of intra-aortic balloon pump, graft flow measurements using the [employer]ainers[employer] system, intraoperative transesophageal echocardiogram and epi-aortic scanning Postoperative acute blood loss anemia and thrombocytopenia, expected given hemodilution and cardiopulmonary bypass pump Hypotension requiring pressor use, expected Elevated transaminases, likely due to hypotension Discharge summary: This is a 77-year-old female patient who underwent four-vessel CABG along with bioprosthetic aortic valve replacement yesterday. She had a long cardiopulmonary pump run. Coming out of the OR she required multiple inotropes and vasopressors. She received multiple blood products. Despite all resuscitative efforts she continued to require vasopressor support and decision was made for mechanical circulatory support. She was transferred to the catheterization lab today and Impella was placed by cardiology. Given the critical nature of her disease process and the continued need for inotropes and vasopressors decision was made to transfer to tertiary center for higher level of care. She will be transferred to [facility] soon as bed is available and will be admitted to Dr. Kalina Mendoza. Family has been updated repeatedly. Patient Condition at Discharge: Critical Plan - Discharge Summary Discharge Rx Participant: Yes New Discharge Prescriptions: No Action Atorvastatin [Lipitor] 80 mg PO HS Apixaban [Eliquis] 5 mg PO BID #180 tab Furosemide [Lasix] 40 mg PO DAILY #30 tab amLODIPine [Norvasc] 5 mg PO DAILY #30 tab Acetaminophen Tab [Tylenol] 650 mg PO Q6HR PRN tab PRN Reason: Mild Pain Or Fever > 100.5 Doxycycline Hyclate 100 mg PO BID Glimepiride [Amaryl] 2 mg PO AC-BRKFST Aspirin 81 mg PO DAILY 30 Days #30 Clopidogrel [Plavix] 75 mg PO DAILY Nitroglycerin Sl Tabs [Nitrostat] 0.4 mg SUBLINGUAL Q5M PRN PRN Reason: Chest Pain Healty Eyes 1 tab PO DAILY Empagliflozin [Jardiance] 25 mg PO DAILY #30 tablet Metoprolol Tartrate [Lopressor] 50 mg PO BID #60 tab Albuterol Inhaler [Ventolin Hfa Inhaler] 1 - 2 puff INHALATION RT-Q6H PRN PRN Reason: Shortness Of Breath Or Wheezing Discharge Medication List Aspirin 81 mg PO DAILY 30 Days #30 05/11/21 [Rx] Clopidogrel [Plavix] 75 mg PO DAILY 06/22/21 [History] Nitroglycerin Sl Tabs [Nitrostat] 0.4 mg SUBLINGUAL Q5M PRN 06/22/21 [History] Atorvastatin [Lipitor] 80 mg PO HS 11/22/21 [History] Healty Eyes 1 tab PO DAILY 11/22/21 [History] Apixaban [Eliquis] 5 mg PO BID #180 tab 12/12/21 [Rx] Acetaminophen Tab [Tylenol] 650 mg PO Q6HR PRN tab 12/13/21 [Rx] Empagliflozin [Jardiance] 25 mg PO DAILY #30 tablet 12/13/21 [Rx] Furosemide [Lasix] 40 mg PO DAILY #30 tab 12/13/21 [Rx] Metoprolol Tartrate [Lopressor] 50 mg PO BID #60 tab 12/13/21 [Rx] amLODIPine [Norvasc] 5 mg PO DAILY #30 tab 12/13/21 [Rx] Albuterol Inhaler [Ventolin Hfa Inhaler] 1 - 2 puff INHALATION RT-Q6H PRN 01/13/22 [History] Doxycycline Hyclate 100 mg PO BID 01/13/22 [History] Glimepiride [Amaryl] 2 mg PO AC-BRKFST 01/13/22 [History] Follow up Appointment(s)/Referral(s): Dayna Carvajal MD [STAFF PHYSICIAN] - 1 Week Haritha Villatoro MD [Primary Care Provider] - 1-2 days Eric Perez DO [Doctor of Osteopathic Medicine] - 2 Weeks (Orthopedic surgeon for your hand lesion) Roldan Nieto MD [STAFF PHYSICIAN] - 1 Week [facility], [NON-STAFF] - Andi Shook MD [STAFF PHYSICIAN] - 1 Week Discharge Disposition: OTHER INSTITUTION NOT DEFINED
[2022-01-20 15:58] VITALS: TEMP 98.4
--- NOTE | 2022-01-20 16:08 | XR ---
EXAMINATION TYPE: XR chest 1V portable DATE OF EXAM: 01/20/2022 Comparison: 01/20/2022 Clinical History: 77-year-old female LVAD placement Findings: Median sternotomy wires. Prosthetic aortic valve. An LVAD device is demonstrated. Retained epicardial pacer leads. Post-CABG clips. Heart mildly enlarged with interstitial prominence. Right IJ Sen[place]-Juan F catheter tip likely at the proximal right main pulmonary artery. ET tube tip estimated to 0.6 cm fro m the jeremy. NG tube satisfactory. Impression: Aside from interval LVAD placement, overall similar exam with cardiomegaly and interstitial prominenc e, likely mild pulmonary vascular congestion.
[2022-01-20 16:28] LABS: Fibrinogen 208 mg/dL (200-500); INR 2.1 (<1.2); Prothrombin Time 20.6 sec (9.0-12.0)
[2022-01-20 16:31] LABS: Glucose,Whole Blood 267 mg/dL (70-110)
[2022-01-20 16:32] LABS: Partial Thromboplastin Time >200.0 sec (22.0-30.0)
[2022-01-20 17:07] LABS: Glucose,Whole Blood 267 mg/dL (70-110)
[2022-01-20 17:08] LABS: ABG Base Excess -7.7 mmol/L; ABG HCO3 18 mmol/L (21-25); ABG Oxygen Saturation 99.7 % (94-97); ABG PCO2 33 mmHg (35-45); ABG PH 7.34 (7.35-7.45); ABG PO2 159 mmHg (83-108); ABG TCO2 19 mmol/L (19-24); Allen Test Performed? Yes
[2022-01-20 18:49] VITALS: PULSE 99; RESP 11
[2022-01-20] MEDS ORDERED: SENNOSIDES-DOCUSATE SODIUM 1 EACH TAB PO SCH (21:00)
[2022-01-21] MEDS ORDERED: HEPARIN SODIUM,PORCINE 10,000 UNIT in SODIUM CHLORIDE 0.9% 1,000 ML IRRIGATION PRN (07:00)
[2022-01-21] MEDS ORDERED: HEPARIN SODIUM,PORCINE 2,500 UNIT in SODIUM CHLORIDE 0.9% 250 ML IRRIGATION PRN (07:00)
--- NOTE | 2022-01-21 09:39 | P.PN ---
Subjective This is a pleasant 77 years old female with past medical history of hypertension, hyperlipidemia, diabetes mellitus, coronary artery disease on dual and platelet therapy and chronic atrial fibrillation on Eliquis at home. Patient also recently had undergone right tumor removal from the right kidney for renal cancer (she follows up with Dr. Del Cid and Dr. Hernadez) Patient presents because of dyspnea and dry coughing for about one day duration with no chest pain but she has some chest heaviness on admission that since resolved with nitroglycerin drip. She denies any headache or dizziness or GI or urinary symptoms. She is not on home oxygen, she denies smoking alcohol or illicit drug Vitas looks stable, blood pressure slightly elevated. Patient is slightly tachypneic. patient has mild leukocytosis of 12.2, rest of CBC, BMP is unremarkable. Creatinine at baseline of 1.2. Which is at baseline Because elevated 318 AST 44 and ALT 53, which are mildly elevated Troponin is elevated 0.09. EKG showing sinus rhythm at [address]-T changes Chest x-ray: Correlate for CHF echocardiogram from 11/30/2021 showing ejection fraction 45% with moderate aortic stenosis Patient received IV Lasix and extra dose of aspirin and nitroglycerin and drip with roof fixer consulted 01/14/2022 Patient states that she feels better, she is now back to baseline. She is not coughing much. stable including creatinine 1.1, liver enzymes are the same. Vitals are stable. patient on 2 L of oxygen via nasal cannula, she was not on home oxygenejection fraction 45% also patient has chronic A. fib and mildly elevated liver enzymes Continue with IV Lasix for tumor, twice daily and Eliquis home dose of 5 mg as well as aspirin and Plavix To resume Amaryl, shortness is not available in this hospital continue with insulin sliding scale 01/15/2022 Patient awake and alert, no dyspnea while sitting in bed. No chest pain. No other complaint. She still complaining of from her bump in her dorsum of the left hand times one month slightly tender with no signs of cellulitis. Orthopedic team were consulted and pending. Aircraft Servicer also on the case, her troponin was elevated last night and her Eliquis switched to heparin drip. Aspirin was discontinued by roof fixer while keeping Plavix to lower the risk of bleeding. She is also on IV Lasix which could be switched to oral does sewn Possible discharge in 24-48 hours 01/16/2022 This morning she was asymptomatic with no chest pain or dyspnea Patient underwent cardiac cath, showing critical disease involving the distal left main and ostial left circumflex and LAD coronary arteries, given extensive coronary artery disease involvement cardiothoracic surgery consult is recommended by roof fixer Hemodynamically stable, labs stable. Patient remains on Plavix and heparin drip 01/17/2022 Patient lying in bed with no chest pain or dyspnea. She still has heparin drip running, no signs of active bleeding. No other new complaints. Patient have significant aortic Stenosis which is moderate and significant coronary artery disease involving the left circulation, left main artery as well as left circumflex and LAD, I discussed the case with cardiothoracic surgery team today. They planned for revascularization and bypass surgery on Sunday as well as aortic valve repair/replacement, dentist also will evaluate the patient for this purpose preoperatively. Labs looks stable, creatinine 1.0. Glucose around 200, she was on Amaryl 2 mg at home which is resumed over GERD S is nonformulary in this facility therefore was started on Irene obtained today. Keep glucose monitoring. She still on Lasix 40 mg twice daily 01/18/2022 No new complaints, no chest pain or dyspnea. She remains on heparin drip Plan for bypass surgery on Sunday with aortic valve repair 01/19/2022 Patient could not be evaluated today, patient went to cardiac surgery for bypass and aortic valve replacement 01/20/2022 01/21/2022 Yesterday patient was not seen because she was in surgery, she underwent four- vessel coronary artery bypass surgery and aortic valve replacement. Today is postop day #1. Patient currently in the ICU intubated and sedated. Apparently the patient received multiple blood transfusions and multiple inotropes and pressors for postop hypotension which is suspected secondary to hypovolemia and cardiogenic in nature. Because of her complicated nature several consultants were on the case and cardiovascular team took over the care of the patient and primary team and the decision was made to transfer the patient to tertiary care center. Objective - Vital Signs Vital signs: Vital Signs Temp 37.1 F L 01/20/22 10:31 Pulse 102 H 01/20/22 11:00 Resp 16 01/20/22 11:00 BP 96/36 01/20/22 10:31 Pulse Ox 94 L 12/02/22 11:00 FiO2 60 01/20/22 07:45 Intake & Output 01/19/22 01/20/22 01/20/22 18:59 06:59 18:59 Intake Total 2045.484 4657.279 950.269 Output Total 5290 1507 158 Balance -3244.516 3150.279 792.269 Weight 79.4 kg Intake: IV 4 1650 610 Albumin Human 5% 250 ml 500 250 In Empty Bag 1 bag @ 250 mls/hr IVPB Q1HR PRN Rx#: [id number] CO/CI 250 60 Calcium Gluconate in NaCl 100 100 2 gm In Saline 1 100ml. bag @ 100 mls/hr IVPB ONCE PRN Rx#:[id number] Potassium Chloride 20 meq 200 100 In Water For Injection 1 100ml.bag @ 50 mls/hr IVPB Q2H JANETTE Rx#: [id number] Sodium Chloride 0.9% 1, 600 100 000 ml @ 50 mls/hr IV . Q20H [facility]TE Rx#:[id number] Intake, IV Titration 905.659 0121.279 340.269 Amount ACETAMINOPHEN IV (For NPO 100 ) 1,000 mg In Empty Bag 1 bag @ 400 mls/hr IVPB Q6HR [facility] Rx#:[id number] Albumin Human 5% 250 ml 250 250 In Empty Bag 1 bag @ 250 mls/hr IVPB Q1HR PRN Rx#: [id number] EPINEPHrine 4 mg In 2.785 24.939 Dextrose 5% in Water 250 ml @ 0.03 MCG/KG/MIN 7. 481 mls/hr IV .Q24H [facility]TE Rx#:[id number] Insulin Regular 100 unit 10.942 77.938 12.12 In Sodium Chloride 0.9% 100 ml @ Per Protocol IV .Q0M J[facility]TE Rx#:[id number] Milrinone-D5w Pmx 20 mg 14.8 103.157 In Dextrose/Water 1 100ml .bag @ 0.3 MCG/KG/MIN 5. 985 mls/hr IV .[id number] [facility] Rx#:[id number] Nitroglycerin-D5w Pmx 50 3.0 1.5 mg In Dextrose/Water 1 250ml.bag @ 5 MCG/MIN 1.5 mls/hr IV .Q24H [facility] Rx#: [id number] Norepinephrine 4 mg In 65.742 410.665 254.000 Sodium Chloride 0.9% 250 ml @ 0.03 MCG/KG/MIN 7. 601 mls/hr IV .Q24H [facility] Rx#:[id number] Sodium Chloride 0.9% 1, 50 50 000 ml @ 50 mls/hr IV . Q20H [facility] Rx#:[id number] ceFAZolin 1,000 mg In 50 Sodium Chloride 0.9% 50 ml @ 100 mls/hr IVPB Q8HR [facility] Rx#:[id number] propofoL 1,000 mg In 32 175.234 49.21 Empty Bag 1 bag @ Titrate IV .Q0M [facility] Rx#: [id number] Blood Product 1565 1836 0 Unit 0 Ffp 24 Cpd Unit 345 [id number] Ffp 24 Cpd Unit 315 [id number] Platelet Pheresis Pas 285 Psoralen Unit [id number] Platelet Pheresis Pas 286 Psoralen Unit [id number] Pooled Cryoprecipitate 80 Unit [id number] Rc As-1 Unit 310 [id number] Rc As-1 Unit 310 [id number] Rc As-1 Unit 310 [id number] Rc As-1 Unit 310 [id number] Output: Chest Tube Drainage 550 1090 120 Left Pleural [address] X2 160 100 30 Right Pleural 150 200 40 Drainage 30 40 Left Arm 20 Left Calf 30 20 Urine 710 377 38 Estimated Blood Loss 4000 Other: Voiding Method Indwelling Catheter Indwelling Catheter ABP, PAP, CO, CI - Last Documented Arterial Blood Pressure 95/45 Pulmonary Artery Pressure 36/25 Cardiac Output 3.4 Cardiac Index 2 - Exam -GENERAL: The patient is intubated and sedated HEENT: Pupils are round and equally reacting to light. EOMI. No scleral icterus. No conjunctival pallor. Normocephalic, atraumatic. No pharyngeal erythema. No thyromegaly. CARDIOVASCULAR: S1 and S2 present. No murmurs, rubs, . gallops. PULMONARY: Chest is clear to auscultation, no wheezing or crackles. ABDOMEN: Soft, nontender, nondistended, normoactive bowel sounds. No palpable organomegaly. MUSCULOSKELETAL: No joint swelling or deformity. EXTREMITIES: No cyanosis, clubbing, or pedal edema. NEUROLOGICAL: Gross neurological examination did not reveal any focal deficits. SKIN: No rashes. no petechiae.bilateral basal - Labs CBC & Chem 7: 01/20/22 13:30 01/20/22 13:30 Labs: Abnormal Lab Results - Last 24 Hours (Table) 01/18/22 01/19/22 01/19/22 Range/Units 15:10 08:40 10:04 WBC (3.8-10.6) k/uL RBC (3.80-5.40) m/uL Hgb (11.4-16.0) gm/dL Hct (34.0-46.0) % Plt Count (150-450) k/uL Neutrophils # (1.3-7.7) k/uL Lymphocytes # (1.0-4.8) k/uL PT (9.0-12.0) sec INR (<1.2) APTT (22.0-30.0) sec Fibrinogen (200-500) mg/dL ABG pH 7.51 H (7.35-7.45) ABG pCO2 (35-45) mmHg ABG pO2 139 H >420 H (83-108) mmHg ABG HCO3 29 H 28 H (21-25) mmol/L ABG Total CO2 31 H 29 H (19-24) mmol/L ABG O2 Saturation 98.9 H 100.0 H (94-97) % ABG Hematocrit 33 L 33 L (34.0-46.0) % ABG Potassium (3.4-4.5) mmol/L ABG Ionized Calcium (4.5-5.3) mg/dL ABG Glucose 130 H 171 H (75-99) mg/dL ABG Lactic Acid (0.5-1.6) mmol/L Hemoglobin 10.9 L 10.7 L (11.4-16.0) gm/dL Potassium (3.5-5.1) mmol/L Chloride (98-107) mmol/L Carbon Dioxide (22-30) mmol/L BUN (7-17) mg/dL Creatinine (0.52-1.04) mg/dL Glucose (74-99) mg/dL POC Glucose (mg/dL) (70-110) mg/dL Calcium (8.4-10.2) mg/dL Ionized Calcium Denzel (4.5-5.3) mg/dL Magnesium (1.6-2.3) mg/dL Total Bilirubin (0.2-1.3) mg/dL AST (14-36) U/L ALT (4-34) U/L Alkaline Phosphatase (38-126) U/L Total Protein (6.3-8.2) g/dL Albumin (3.5-5.0) g/dL Arterial Blood Potassium (3.4-4.5) mmol/L Arterial Blood Glucose 130 H 171 H (75-99) mg/dL Crossmatch See Detail 01/19/22 01/19/22 01/19/22 Range/Units 10:55 11:33 12:07 WBC (3.8-10.6) k/uL RBC (3.80-5.40) m/uL Hgb (11.4-16.0) gm/dL Hct (34.0-46.0) % Plt Count (150-450) k/uL Neutrophils # (1.3-7.7) k/uL Lymphocytes # (1.0-4.8) k/uL PT (9.0-12.0) sec INR (<1.2) APTT (22.0-30.0) sec Fibrinogen (200-500) mg/dL ABG pH 7.31 L (7.35-7.45) ABG pCO2 51 H (35-45) mmHg ABG pO2 397 H 314 H 328 H (83-108) mmHg ABG HCO3 26 H 26 H (21-25) mmol/L ABG Total CO2 26 H 27 H 27 H (19-24) mmol/L ABG O2 Saturation 100.0 H 99.6 H 99.8 H (94-97) % ABG Hematocrit 19 L* 25 L 24 L (34.0-46.0) % ABG Potassium 3.3 L 5.0 H (3.4-4.5) mmol/L ABG Ionized Calcium 3.9 L 4.1 L 4.0 L (4.5-5.3) mg/dL ABG Glucose 140 H 180 H 156 H (75-99) mg/dL ABG Lactic Acid 2.0 H 3.1 H* 2.8 H* (0.5-1.6) mmol/L Hemoglobin 6.3 L* 8.1 L 7.7 L (11.4-16.0) gm/dL Potassium (3.5-5.1) mmol/L Chloride (98-107) mmol/L Carbon Dioxide (22-30) mmol/L BUN (7-17) mg/dL Creatinine (0.52-1.04) mg/dL Glucose (74-99) mg/dL POC Glucose (mg/dL) (70-110) mg/dL Calcium (8.4-10.2) mg/dL Ionized Calcium Denzel (4.5-5.3) mg/dL Magnesium (1.6-2.3) mg/dL Total Bilirubin (0.2-1.3) mg/dL AST (14-36) U/L ALT (4-34) U/L Alkaline Phosphatase (38-126) U/L Total Protein (6.3-8.2) g/dL Albumin (3.5-5.0) g/dL Arterial Blood Potassium 3.3 L 5.0 H (3.4-4.5) mmol/L Arterial Blood Glucose 140 H 180 H 156 H (75-99) mg/dL Crossmatch 01/19/22 01/19/22 01/19/22 Range/Units 12:56 13:37 17:00 WBC (3.8-10.6) k/uL RBC (3.80-5.40) m/uL Hgb (11.4-16.0) gm/dL Hct (34.0-46.0) % Plt Count (150-450) k/uL Neutrophils # (1.3-7.7) k/uL Lymphocytes # (1.0-4.8) k/uL PT (9.0-12.0) sec INR (<1.2) APTT (22.0-30.0) sec Fibrinogen (200-500) mg/dL ABG pH 7.28 L (7.35-7.45) ABG pCO2 54 H (35-45) mmHg ABG pO2 279 H 368 H 129 H (83-108) mmHg ABG HCO3 26 H (21-25) mmol/L ABG Total CO2 26 H 26 H 27 H (19-24) mmol/L ABG O2 Saturation 99.8 H 99.9 H 99.1 H (94-97) % ABG Hematocrit 26 L 21 L (34.0-46.0) % ABG Potassium (3.4-4.5) mmol/L ABG Ionized Calcium 4.0 L 3.8 L (4.5-5.3) mg/dL ABG Glucose 154 H 147 H (75-99) mg/dL ABG Lactic Acid 3.6 H* 4.1 H* (0.5-1.6) mmol/L Hemoglobin 8.5 L 6.7 L* (11.4-16.0) gm/dL Potassium (3.5-5.1) mmol/L Chloride (98-107) mmol/L Carbon Dioxide (22-30) mmol/L BUN (7-17) mg/dL Creatinine (0.52-1.04) mg/dL Glucose (74-99) mg/dL POC Glucose (mg/dL) (70-110) mg/dL Calcium (8.4-10.2) mg/dL Ionized Calcium Denzel (4.5-5.3) mg/dL Magnesium (1.6-2.3) mg/dL Total Bilirubin (0.2-1.3) mg/dL AST (14-36) U/L ALT (4-34) U/L Alkaline Phosphatase (38-126) U/L Total Protein (6.3-8.2) g/dL Albumin (3.5-5.0) g/dL Arterial Blood Potassium (3.4-4.5) mmol/L Arterial Blood Glucose 154 H 147 H (75-99) mg/dL Crossmatch 01/19/22 01/19/22 01/19/22 Range/Units 17:00 17:04 17:04 WBC 14.8 H (3.8-10.6) k/uL RBC 2.86 L (3.80-5.40) m/uL Hgb 8.4 L D (11.4-16.0) gm/dL Hct 25.4 L (34.0-46.0) % Plt Count 75 L D (150-450) k/uL Neutrophils # 12.4 H (1.3-7.7) k/uL Lymphocytes # (1.0-4.8) k/uL PT 13.6 H (9.0-12.0) sec INR 1.3 H (<1.2) APTT 34.5 H (22.0-30.0) sec Fibrinogen (200-500) mg/dL ABG pH (7.35-7.45) ABG pCO2 (35-45) mmHg ABG pO2 (83-108) mmHg ABG HCO3 (21-25) mmol/L ABG Total CO2 (19-24) mmol/L ABG O2 Saturation (94-97) % ABG Hematocrit (34.0-46.0) % ABG Potassium (3.4-4.5) mmol/L ABG Ionized Calcium (4.5-5.3) mg/dL ABG Glucose (75-99) mg/dL ABG Lactic Acid (0.5-1.6) mmol/L Hemoglobin (11.4-16.0) gm/dL Potassium (3.5-5.1) mmol/L Chloride (98-107) mmol/L Carbon Dioxide (22-30) mmol/L BUN (7-17) mg/dL Creatinine (0.52-1.04) mg/dL Glucose (74-99) mg/dL POC Glucose (mg/dL) 183 H (70-110) mg/dL Calcium (8.4-10.2) mg/dL Ionized Calcium Denzel (4.5-5.3) mg/dL Magnesium (1.6-2.3) mg/dL Total Bilirubin (0.2-1.3) mg/dL AST (14-36) U/L ALT (4-34) U/L Alkaline Phosphatase (38-126) U/L Total Protein (6.3-8.2) g/dL Albumin (3.5-5.0) g/dL Arterial Blood Potassium (3.4-4.5) mmol/L Arterial Blood Glucose (75-99) mg/dL Crossmatch 01/19/22 01/19/22 01/19/22 Range/Units 17:04 18:03 18:59 WBC (3.8-10.6) k/uL RBC (3.80-5.40) m/uL Hgb (11.4-16.0) gm/dL Hct (34.0-46.0) % Plt Count (150-450) k/uL Neutrophils # (1.3-7.7) k/uL Lymphocytes # (1.0-4.8) k/uL PT (9.0-12.0) sec INR (<1.2) APTT (22.0-30.0) sec Fibrinogen (200-500) mg/dL ABG pH (7.35-7.45) ABG pCO2 (35-45) mmHg ABG pO2 (83-108) mmHg ABG HCO3 (21-25) mmol/L ABG Total CO2 (19-24) mmol/L ABG O2 Saturation (94-97) % ABG Hematocrit (34.0-46.0) % ABG Potassium (3.4-4.5) mmol/L ABG Ionized Calcium (4.5-5.3) mg/dL ABG Glucose (75-99) mg/dL ABG Lactic Acid (0.5-1.6) mmol/L Hemoglobin (11.4-16.0) gm/dL Potassium 3.3 L (3.5-5.1) mmol/L Chloride 108 H (98-107) mmol/L Carbon Dioxide (22-30) mmol/L BUN 25 H (7-17) mg/dL Creatinine (0.52-1.04) mg/dL Glucose 161 H (74-99) mg/dL POC Glucose (mg/dL) 150 H 159 H (70-110) mg/dL Calcium 7.1 L (8.4-10.2) mg/dL Ionized Calcium Denzel 3.9 L (4.5-5.3) mg/dL Magnesium 2.8 H (1.6-2.3) mg/dL Total Bilirubin 1.4 H (0.2-1.3) mg/dL AST 87 H (14-36) U/L ALT (4-34) U/L Alkaline Phosphatase 29 L (38-126) U/L Total Protein 4.0 L (6.3-8.2) g/dL Albumin 2.6 L (3.5-5.0) g/dL Arterial Blood Potassium (3.4-4.5) mmol/L Arterial Blood Glucose (75-99) mg/dL Crossmatch 01/19/22 01/19/22 01/19/22 Range/Units 19:00 20:04 21:07 WBC 11.5 H (3.8-10.6) k/uL RBC 2.29 L (3.80-5.40) m/uL Hgb 7.2 L (11.4-16.0) gm/dL Hct 20.3 L (34.0-46.0) % Plt Count 71 L (150-450) k/uL Neutrophils # 9.9 H (1.3-7.7) k/uL Lymphocytes # 0.8 L (1.0-4.8) k/uL PT (9.0-12.0) sec INR (<1.2) APTT (22.0-30.0) sec Fibrinogen (200-500) mg/dL ABG pH (7.35-7.45) ABG pCO2 (35-45) mmHg ABG pO2 (83-108) mmHg ABG HCO3 (21-25) mmol/L ABG Total CO2 (19-24) mmol/L ABG O2 Saturation (94-97) % ABG Hematocrit (34.0-46.0) % ABG Potassium (3.4-4.5) mmol/L ABG Ionized Calcium (4.5-5.3) mg/dL ABG Glucose (75-99) mg/dL ABG Lactic Acid (0.5-1.6) mmol/L Hemoglobin (11.4-16.0) gm/dL Potassium (3.5-5.1) mmol/L Chloride (98-107) mmol/L Carbon Dioxide (22-30) mmol/L BUN (7-17) mg/dL Creatinine (0.52-1.04) mg/dL Glucose (74-99) mg/dL POC Glucose (mg/dL) 148 H 168 H (70-110) mg/dL Calcium (8.4-10.2) mg/dL Ionized Calcium Denzel (4.5-5.3) mg/dL Magnesium (1.6-2.3) mg/dL Total Bilirubin (0.2-1.3) mg/dL AST (14-36) U/L ALT (4-34) U/L Alkaline Phosphatase (38-126) U/L Total Protein (6.3-8.2) g/dL Albumin (3.5-5.0) g/dL Arterial Blood Potassium (3.4-4.5) mmol/L Arterial Blood Glucose (75-99) mg/dL Crossmatch 01/19/22 01/19/22 01/19/22 Range/Units 21:15 21:15 22:22 WBC (3.8-10.6) k/uL RBC 2.02 L (3.80-5.40) m/uL Hgb 6.0 L* (11.4-16.0) gm/dL Hct 18.1 L* (34.0-46.0) % Plt Count 104 L (150-450) k/uL Neutrophils # 8.3 H (1.3-7.7) k/uL Lymphocytes # 0.7 L (1.0-4.8) k/uL PT (9.0-12.0) sec INR (<1.2) APTT (22.0-30.0) sec Fibrinogen 146 L (200-500) mg/dL ABG pH (7.35-7.45) ABG pCO2 (35-45) mmHg ABG pO2 (83-108) mmHg ABG HCO3 (21-25) mmol/L ABG Total CO2 (19-24) mmol/L ABG O2 Saturation (94-97) % ABG Hematocrit (34.0-46.0) % ABG Potassium (3.4-4.5) mmol/L ABG Ionized Calcium (4.5-5.3) mg/dL ABG Glucose (75-99) mg/dL ABG Lactic Acid (0.5-1.6) mmol/L Hemoglobin (11.4-16.0) gm/dL Potassium (3.5-5.1) mmol/L Chloride (98-107) mmol/L Carbon Dioxide (22-30) mmol/L BUN (7-17) mg/dL Creatinine (0.52-1.04) mg/dL Glucose (74-99) mg/dL POC Glucose (mg/dL) 136 H (70-110) mg/dL Calcium (8.4-10.2) mg/dL Ionized Calcium Denzel (4.5-5.3) mg/dL Magnesium (1.6-2.3) mg/dL Total Bilirubin (0.2-1.3) mg/dL AST (14-36) U/L ALT (4-34) U/L Alkaline Phosphatase (38-126) U/L Total Protein (6.3-8.2) g/dL Albumin (3.5-5.0) g/dL Arterial Blood Potassium (3.4-4.5) mmol/L Arterial Blood Glucose (75-99) mg/dL Crossmatch 01/19/22 01/20/22 01/20/22 Range/Units 23:16 01:28 03:00 WBC 10.8 H (3.8-10.6) k/uL RBC 2.46 L (3.80-5.40) m/uL Hgb 7.4 L (11.4-16.0) gm/dL Hct 22.1 L (34.0-46.0) % Plt Count 103 L (150-450) k/uL Neutrophils # 8.8 H (1.3-7.7) k/uL Lymphocytes # (1.0-4.8) k/uL PT (9.0-12.0) sec INR (<1.2) APTT (22.0-30.0) sec Fibrinogen (200-500) mg/dL ABG pH (7.35-7.45) ABG pCO2 (35-45) mmHg ABG pO2 (83-108) mmHg ABG HCO3 (21-25) mmol/L ABG Total CO2 (19-24) mmol/L ABG O2 Saturation (94-97) % ABG Hematocrit (34.0-46.0) % ABG Potassium (3.4-4.5) mmol/L ABG Ionized Calcium (4.5-5.3) mg/dL ABG Glucose (75-99) mg/dL ABG Lactic Acid (0.5-1.6) mmol/L Hemoglobin (11.4-16.0) gm/dL Potassium (3.5-5.1) mmol/L Chloride (98-107) mmol/L Carbon Dioxide (22-30) mmol/L BUN (7-17) mg/dL Creatinine (0.52-1.04) mg/dL Glucose (74-99) mg/dL POC Glucose (mg/dL) 123 H 120 H (70-110) mg/dL Calcium (8.4-10.2) mg/dL Ionized Calcium Denzel (4.5-5.3) mg/dL Magnesium (1.6-2.3) mg/dL Total Bilirubin (0.2-1.3) mg/dL AST (14-36) U/L ALT (4-34) U/L Alkaline Phosphatase (38-126) U/L Total Protein (6.3-8.2) g/dL Albumin (3.5-5.0) g/dL Arterial Blood Potassium (3.4-4.5) mmol/L Arterial Blood Glucose (75-99) mg/dL Crossmatch 01/20/22 01/20/22 01/20/22 Range/Units 03:00 03:00 03:50 WBC (3.8-10.6) k/uL RBC (3.80-5.40) m/uL Hgb (11.4-16.0) gm/dL Hct (34.0-46.0) % Plt Count (150-450) k/uL Neutrophils # (1.3-7.7) k/uL Lymphocytes # (1.0-4.8) k/uL PT (9.0-12.0) sec INR (<1.2) APTT (22.0-30.0) sec Fibrinogen (200-500) mg/dL ABG pH 7.29 L (7.35-7.45) ABG pCO2 (35-45) mmHg ABG pO2 109 H (83-108) mmHg ABG HCO3 18 L (21-25) mmol/L ABG Total CO2 (19-24) mmol/L ABG O2 Saturation 99.0 H (94-97) % ABG Hematocrit (34.0-46.0) % ABG Potassium (3.4-4.5) mmol/L ABG Ionized Calcium (4.5-5.3) mg/dL ABG Glucose (75-99) mg/dL ABG Lactic Acid (0.5-1.6) mmol/L Hemoglobin (11.4-16.0) gm/dL Potassium (3.5-5.1) mmol/L Chloride 111 H (98-107) mmol/L Carbon Dioxide 19 L (22-30) mmol/L BUN 27 H (7-17) mg/dL Creatinine 1.20 H (0.52-1.04) mg/dL Glucose (74-99) mg/dL POC Glucose (mg/dL) 112 H (70-110) mg/dL Calcium 7.8 L (8.4-10.2) mg/dL Ionized Calcium Denzel (4.5-5.3) mg/dL Magnesium 2.6 H (1.6-2.3) mg/dL Total Bilirubin (0.2-1.3) mg/dL AST 504 H (14-36) U/L ALT 275 H (4-34) U/L Alkaline Phosphatase 36 L (38-126) U/L Total Protein 4.3 L (6.3-8.2) g/dL Albumin 3.0 L (3.5-5.0) g/dL Arterial Blood Potassium (3.4-4.5) mmol/L Arterial Blood Glucose (75-99) mg/dL Crossmatch 01/20/22 01/20/22 01/20/22 Range/Units 05:55 06:36 08:05 WBC (3.8-10.6) k/uL RBC (3.80-5.40) m/uL Hgb (11.4-16.0) gm/dL Hct (34.0-46.0) % Plt Count (150-450) k/uL Neutrophils # (1.3-7.7) k/uL Lymphocytes # (1.0-4.8) k/uL PT (9.0-12.0) sec INR (<1.2) APTT (22.0-30.0) sec Fibrinogen (200-500) mg/dL ABG pH 7.34 L (7.35-7.45) ABG pCO2 (35-45) mmHg ABG pO2 (83-108) mmHg ABG HCO3 20 L (21-25) mmol/L ABG Total CO2 (19-24) mmol/L ABG O2 Saturation 98.1 H (94-97) % ABG Hematocrit (34.0-46.0) % ABG Potassium (3.4-4.5) mmol/L ABG Ionized Calcium (4.5-5.3) mg/dL ABG Glucose (75-99) mg/dL ABG Lactic Acid 9.4 H* (0.5-1.6) mmol/L Hemoglobin (11.4-16.0) gm/dL Potassium (3.5-5.1) mmol/L Chloride (98-107) mmol/L Carbon Dioxide (22-30) mmol/L BUN (7-17) mg/dL Creatinine (0.52-1.04) mg/dL Glucose (74-99) mg/dL POC Glucose (mg/dL) 125 H (70-110) mg/dL Calcium (8.4-10.2) mg/dL Ionized Calcium Denzel (4.5-5.3) mg/dL Magnesium (1.6-2.3) mg/dL Total Bilirubin (0.2-1.3) mg/dL AST (14-36) U/L ALT (4-34) U/L Alkaline Phosphatase (38-126) U/L Total Protein (6.3-8.2) g/dL Albumin (3.5-5.0) g/dL Arterial Blood Potassium (3.4-4.5) mmol/L Arterial Blood Glucose (75-99) mg/dL Crossmatch 01/20/22 01/20/22 Range/Units 08:07 09:00 WBC (3.8-10.6) k/uL RBC (3.80-5.40) m/uL Hgb (11.4-16.0) gm/dL Hct (34.0-46.0) % Plt Count (150-450) k/uL Neutrophils # (1.3-7.7) k/uL Lymphocytes # (1.0-4.8) k/uL PT (9.0-12.0) sec INR (<1.2) APTT (22.0-30.0) sec Fibrinogen (200-500) mg/dL ABG pH (7.35-7.45) ABG pCO2 (35-45) mmHg ABG pO2 (83-108) mmHg ABG HCO3 (21-25) mmol/L ABG Total CO2 (19-24) mmol/L ABG O2 Saturation (94-97) % ABG Hematocrit (34.0-46.0) % ABG Potassium (3.4-4.5) mmol/L ABG Ionized Calcium (4.5-5.3) mg/dL ABG Glucose (75-99) mg/dL ABG Lactic Acid (0.5-1.6) mmol/L Hemoglobin (11.4-16.0) gm/dL Potassium (3.5-5.1) mmol/L Chloride (98-107) mmol/L Carbon Dioxide (22-30) mmol/L BUN (7-17) mg/dL Creatinine (0.52-1.04) mg/dL Glucose (74-99) mg/dL POC Glucose (mg/dL) 117 H 111 H (70-110) mg/dL Calcium (8.4-10.2) mg/dL Ionized Calcium Denzel (4.5-5.3) mg/dL Magnesium (1.6-2.3) mg/dL Total Bilirubin (0.2-1.3) mg/dL AST (14-36) U/L ALT (4-34) U/L Alkaline Phosphatase (38-126) U/L Total Protein (6.3-8.2) g/dL Albumin (3.5-5.0) g/dL Arterial Blood Potassium (3.4-4.5) mmol/L Arterial Blood Glucose (75-99) mg/dL Crossmatch Assessment and Plan Assessment: Acute and chronic diastolic and systolic CHF with ejection fraction 45% Elevated troponin, cardiac cath showing critical disease involving the left distal main coronary artery as well as left circumflex and LAD, plan for cardiothoracic surgery Moderate aortic stenosis left hand bump 1 month, orthopedic team recommended outpatient follow-up Hypertension Hyperlipidemia Type 2 diabetes mellitus Paroxysmal atrial fibrillation History of coronary artery disease status post PCI History of renal cancer status post recent right tumor removal from the right kidney,, nephrectomy Elevated troponin Chronically Mildly elevated liver enzymes Plan: This is a pleasant 77 years old female who presents with CHF exacerbation, she underwent bypass surgery and valve replacement yesterday cardiothoracic surgery team took over the care of the patient as the primary team Continue with Management per recommendation of Several consultants on the case including roof fixer, pulmonary/critical care team Patient will be transferred to tertiary care center per Primary surgical team Continue monitoring vitals and hemoglobin and transfuse for hemoglobin was 7. Continue with chest tube as indicated Patient will be transferred to tertiary care center per cardiovascular surgery primary team Prognosis guarded
--- NOTE | 2022-01-21 10:49 | P.PCN ---
Date of Procedure: 01/21/22 Operative Findings: Placement of Impella CP in the LV and heart catheterization Performing Physician Roldan Nieto MD Procedure performed 1. Removal of balloon pump 2. Successful placement of Impella CP in the left ventricle 3. Left heart catheterization 4. Right heart catheterization 5. Selective left common femoral artery angiogram 6. Ultrasound guided access of the right common femoral vein Indication This is a 77-year-old female patient with coronary artery disease as well as hypertension and dyslipidemia who presented to the hospital a few days ago with a chest discomfort and shortness of breath and she was diagnosed with acute coronary syndrome. She underwent a heart catheterization and that showed plaque rupture involving the distal left main and also involving the ostial LCx and ostial LAD with a large thrombus burden. Giving this anatomy the patient was referred to undergo open heart surgery. She underwent CABG 24 hours ago. Postsurgery the patient developed and continues to have hypotension requiring vasopressors. The last echo after the surgery showed an ejection fraction around 40%. She was requiring 2 vasopressors. She was diagnosed with cardiogenic shock and in the light of that she was brought to the cardiac flower shop laborer/designer to undergo placement of Impella CP Approach Left common femoral artery Complication None Length of the procedure Two hours Procedure description After obtaining informed consent the patient was brought to the cardiac flower shop laborer/designer emergently. The patient was prepped and wrapped in the usual sterile fashion. Subsequently I did turn the balloon pump off. After that I did pull the balloon pump catheter out of the sheath from the left common femoral artery. The sheath in the left common femoral artery remains. I did advance an 035 wire inside the sheath all the way to the thoracic aorta. I did after that exchange the balloon pump sheath into a 9 English sheath using a 035 stiff Glidewire. After that I did selective left common femoral artery angiogram with injection through the sheath and that revealed good position of the sheath at the distal left common femoral artery above the bifurcation of the common femoral artery into profunda and SFA. Because of the position of the sheath was good I decided to upgrade the sheath into a 14 English sheath. I did predilate the artery using a 10 English dilator and that was performed over all 3 5 stiff wire and subsequently under fluoroscopy guidance I did exchange the 9 English sheath into 14 English sheath with no tissue whatsoever. At that point anticoagulation was initiated using heparin which was at low intensity with continuous ACT monitoring. Subsequently I advanced a 6 English pigtail catheter over all 3 [address] the way to the ascending aorta. The aortic valve was crossed using the pigtail catheter and the wire and then the 035 regular wire was pulled out and I placed the 018 wire inside the pigtail catheter then the pigtail catheter was pulled out over the wire and the wire was kept in position in the apex of the LV. At that point and after the Impella CP was prepped attempting advancing it through the 11 cm 14 English sheath was unsuccessful because the patient has very calcified lesion involving the left common iliac artery. Because of that I dec ided to change my 14 English 11 cm sheath into a 14 English 23 cm sheath to bypass that lesion in the left common iliac artery. That was again performed using a 035 stiff Glidewire and using fluoroscopy guidance. Again the aortic valve was crossed using a 035 regular wire with the support of 6 English pigtail catheter. Again the 035 wire was exchanged in 2018 wire using the pigtail catheter. The 018 wire was positioned in the apex of the LV. Subsequently I was able to advance the Impella CP over the 018 wire through the lesion at the left common iliac artery all the way to the LV where the device was positioned at the mid left ventricle and then the 018 wire was pulled out. Subsequently the Impella CP was turned on. We were able to achieve 2.4 L/min pumping and good wave form. At this point, we did left common femoral artery angiogram with injection through the the 14 English sheath and that revealed very sluggish flow at the left common femoral artery. Because of that I was able successfully to peel the 14 English sheath out. Subsequently we did achieve good hemostasis in the left groin and the catheter was secured nicely. Before the patient left the room we did final fluoroscopy and that revealed good position of the Impella CP in the LV. After that the right common femoral vein was cannulated using ultrasound guidance and I placed an 8 English sheath at the right common femoral vein. I did under fluoroscopy guidance advance a 6 English [place] catheter to the right heart chambers including the right atrium and in the right ventricle and then pulmonary artery and then wedge position. We did measure the pressures across the right heart chambers and I did after that cardiac output using thermodilution. The procedure was completed without any complication Hemodynamics 1. The pulmonary capillary wedge pressure was 18 mmHg 2. PA pressures were as follow systolic 40 and diastolic 21 and mean 27 mmHg 3. RV pressures were as follows systolic 36 and end diastolic of 17 mmHg 4. RA pressure was 16 mmHg 5. The left ventricular end diastolic pressure was 16 mmHg 6. The cardiac output was 3.38 L/min with a cardiac index of 1.89 L/min/m 7. The transpulmonary gradient was 9 mmHg 8. Pulmonary vascular resistance was 2.66 [place] Units Postprocedure management 1. The patient will be transferred to the intensive care unit 2. Subsequently transfer him to a tertiary center if bed is available
--- NOTE | 2022-01-21 15:24 | CA ---
Transthoracic Echo Report Name: Jessica Perez Age: 77 Gender: F : 1945 Exam Date: 01/20/2022 13:45 Exam Location: [facility] Ht (in): 60 Wt (lb): 175 Ordering Physician: Roldan Nieto MD ([id number]) Attending/Referring Phys: Publishing Agent Danika Roberts RDCS Procedure CPT: Indications: Placement of Left Ventricular Assist Device Cardiac Hx: Limited Echo for placment of LVAD Technical Quality: Contrast 1: Total Dose (mL): Contrast 2: Total Dose (mL): MEASUREMENTS (Male / Female) Normal Values FINDINGS Left Ventricle LVAD device in place.left ventricular ejection fraction is estimated at 30-35 %. Right Ventricle Right Atrium Left Atrium Mitral Valve Aortic Valve Tricuspid Valve Pulmonic Valve Pericardium Small pericardial effusion. Aorta CONCLUSIONS Severe LV systolic dysfunction with an ejection fraction of 30-35% Elevated device in place Previewed by: Dr. Rashaun Ahuja MD (Electronically Signed) Final Date: 21 January 2022 15:23
== END 2022-01-20 19:02 | disposition short-term general hospital (02) | DRG 215 ==
LOC: EC 11:04 → 3SCARD 14:02 → 2SICU 01-19 06:41
PROVIDERS: ADMIT Surgery; ATTEND Internal Medicine
PROC: B2111ZZ Fluoroscopy of Multiple Coronary Arteries using Low Osmolar Contrast (ICD-10-PCS; 2022-01-16)
PROC: 4A033BC Measurement of Arterial Pressure, Coronary, Percutaneous Approach (ICD-10-PCS; 2022-01-16)
PROC: 4A023N7 Measurement of Cardiac Sampling and Pressure, Left Heart, Percutaneous Approach (ICD-10-PCS; 2022-01-16 11:00)
PROC: 021109W Bypass Coronary Artery, Two Arteries from Aorta with Autologous Venous Tissue, Open Approach (ICD-10-PCS; 2022-01-19)
PROC: 03BB4ZZ Excision of Right Radial Artery, Percutaneous Endoscopic Approach (ICD-10-PCS; 2022-01-19)
PROC: 06BQ4ZZ Excision of Left Saphenous Vein, Percutaneous Endoscopic Approach (ICD-10-PCS; 2022-01-19)
PROC: 03B10ZZ Excision of Left Internal Mammary Artery, Open Approach (ICD-10-PCS; 2022-01-19)
PROC: 055Y0ZZ Destruction of Upper Vein, Open Approach (ICD-10-PCS; 2022-01-19)
PROC: 02L70CK Occlusion of Left Atrial Appendage with Extraluminal Device, Open Approach (ICD-10-PCS; 2022-01-19)
PROC: 4A0305C Measurement of Arterial Flow, Coronary, Open Approach (ICD-10-PCS; 2022-01-19)
PROC: 5A1221Z Performance of Cardiac Output, Continuous (ICD-10-PCS; 2022-01-19)
PROC: 3E033XZ Introduction of Vasopressor into Peripheral Vein, Percutaneous Approach (ICD-10-PCS; 2022-01-19)
PROC: 30243H0 Transfusion of Autologous Whole Blood into Central Vein, Percutaneous Approach (ICD-10-PCS; 2022-01-19)
PROC: 30233N1 Transfusion of Nonautologous Red Blood Cells into Peripheral Vein, Percutaneous Approach (ICD-10-PCS; 2022-01-19)
PROC: 30233R1 Transfusion of Nonautologous Platelets into Peripheral Vein, Percutaneous Approach (ICD-10-PCS; 2022-01-19)
PROC: 30233K1 Transfusion of Nonautologous Frozen Plasma into Peripheral Vein, Percutaneous Approach (ICD-10-PCS; 2022-01-19)
PROC: 0D9670Z Drainage of Stomach with Drainage Device, Via Natural or Artificial Opening (ICD-10-PCS; 2022-01-19)
PROC: 02RF08Z Replacement of Aortic Valve with Zooplastic Tissue, Open Approach (ICD-10-PCS; principal; 2022-01-19 08:00)
PROC: 02100AW Bypass Coronary Artery, One Artery from Aorta with Autologous Arterial Tissue, Open Approach (ICD-10-PCS; 2022-01-19 08:00)
PROC: 5A02210 Assistance with Cardiac Output using Balloon Pump, Continuous (ICD-10-PCS; 2022-01-19 08:00)
PROC: 02100A9 Bypass Coronary Artery, One Artery from Left Internal Mammary with Autologous Arterial Tissue, Open Approach (ICD-10-PCS; 2022-01-19 08:00)
PROC: 6A551Z2 Pheresis of Platelets, Multiple (ICD-10-PCS; 2022-01-20)
PROC: 02HA3RZ Insertion of Short-term External Heart Assist System into Heart, Percutaneous Approach (ICD-10-PCS; 2022-01-20)
PROC: 5A0221D Assistance with Cardiac Output using Impeller Pump, Continuous (ICD-10-PCS; 2022-01-20)
DX: T82.855A Stenosis of coronary artery stent, initial encounter (principal); Z00.6 Encounter for examination for normal comparison and control in clinical research program; I21.4 Non-ST elevation (NSTEMI) myocardial infarction; I50.43 Acute on chronic combined systolic (congestive) and diastolic (congestive) heart failure; R57.0 Cardiogenic shock; I25.110 Atherosclerotic heart disease of native coronary artery with unstable angina pectoris; E87.20 Acidosis, unspecified; I48.20 Chronic atrial fibrillation, unspecified; C64.1 Malignant neoplasm of right kidney, except renal pelvis; D62 Acute posthemorrhagic anemia; I11.0 Hypertensive heart disease with heart failure; E11.51 Type 2 diabetes mellitus with diabetic peripheral angiopathy without gangrene; K76.89 Other specified diseases of liver; I35.0 Nonrheumatic aortic (valve) stenosis; I34.0 Nonrheumatic mitral (valve) insufficiency; D69.6 Thrombocytopenia, unspecified; E86.1 Hypovolemia; R09.02 Hypoxemia; E78.5 Hyperlipidemia, unspecified; Y71.1 Therapeutic (nonsurgical) and rehabilitative cardiovascular devices associated with adverse incidents; R74.01 Elevation of levels of liver transaminase levels; R91.8 Other nonspecific abnormal finding of lung field; M81.0 Age-related osteoporosis without current pathological fracture; N28.9 Disorder of kidney and ureter, unspecified; Z95.5 Presence of coronary angioplasty implant and graft; Z28.310 Unvaccinated for COVID-19; Z82.49 Family history of ischemic heart disease and other diseases of the circulatory system; Z79.899 Other long term (current) drug therapy; Z79.02 Long term (current) use of antithrombotics/antiplatelets; Z79.84 Long term (current) use of oral hypoglycemic drugs; Z79.82 Long term (current) use of aspirin; Z79.01 Long term (current) use of anticoagulants; Z88.8 Allergy status to other drugs, medicaments and biological substances; I25.2 Old myocardial infarction; Z90.5 Acquired absence of kidney
CPT/HCPCS: 33968; 33990; 36415; 36430; 70486; 71045; 71046; 71250; 76705; 80048; 80053; 80061; 80074; 80076; 81003; 82330; 82805; 83036; 83605; 83735; 83880; 84145; 84443; 84484; 85025; 85384; 85520; 85610; 85730; 86850; 86891; 86900; 86901; 86920; 87070; 87635; 88305; 88311; 93005; 93306; 93308; 93451; 93458; 93799; 93880; 93922; 93970; 94002; 94003; 94150; 94640; 94660; 94760; 96365; 96366; 96375; 96376; 99291